=== PATIENT | female | born 1940 | race African-American/Black ===

== ENCOUNTER → 2016-10-30 | Outpatient (CLI) | payer MEDICARE, OTHER | LOC: OD 16:40 | PROVIDERS: ATTEND Family Medicine Geriatric Medicine | DX: R10.9 Unspecified abdominal pain (principal); R19.7 Diarrhea, unspecified; Z79.01 Long term (current) use of anticoagulants | CPT/HCPCS: 74022 ==

== ENCOUNTER 2016-11-18 14:14 | Inpatient (IN) | payer MEDICARE, OTHER ==
--- NOTE | 2016-11-18 14:27 | ER Document Report ---
ED Cardiac <LULA SEWELL - Last Filed: 11/18/16 14:27> - General Mode of Arrival: Medic Information source: Patient TRAVEL OUTSIDE OF THE [place] IN LAST 30 DAYS: No - HPI Patient complains to provider of: Shortness of breath Associated symptoms: Other - see notes above <MAXIMINO CORREA - Last Filed: 11/18/16 14:37> - General Chief Complaint: Palpitations Stated Complaint: HEART PROBLEMS Notes: 76 year old female with history atrial fibrillation, diabetes, CHF, ESRD, hypertension, and hyperlipidemia presents to the ED via EMS complaining of being in atrial fibrillation that started something this morning after waking up. Patient reports that the atrial fibrillation comes and goes and is not constant. Patient reports that she is sometimes short of breath and additionally complains of headaches and generalized fatigue. Patient is on Coumadin and is dialyzed Friday, , and Saturdays by Dr. Nelson. Patient reports not taking her medication this morning because her daughter who manages her medications was away this morning. (MAXIMINO CORREA) - Related Data Allergies/Adverse Reactions: Penicillins Allergy (Severe, Verified 06/03/16 15:11) Swelling of hands and/or feet vancomycin [Vancomycin] Adverse Reaction (Intermediate, Verified 06/03/16 15:11) Swelling of hands and/or feet hydrochlorothiazide [From Dyazide] Adverse Reaction (Verified 06/03/16 15:11) Swelling of hands and/or feet triamterene [From Dyazide] Adverse Reaction (Verified 06/03/16 15:11) Swelling of hands and/or feet Past Medical History - General Information source: Patient - Social History Smoking Status: Unknown if Ever Smoked Family History: DM, Hypertension - Past Medical History Cardiac Medical History: Reports: Hx Atrial Fibrillation, Hx Congestive Heart Failure, Hx Heart Attack - 2 mechanical valves, Hx Hypercholesterolemia, Hx Hypertension, Hx Heart Murmur - Aortic and mitral valve replacement. Pulmonary Medical History: Reports: Hx COPD Endocrine Medical History: Reports: Hx Diabetes Mellitus Type 2 Renal/ Medical History: Reports: Hx End Stage Renal Disease, Hx Hemodialysis GI Medical History: Reports: Hx Colonoscopy, Hx Endoscopy Musculoskeltal Medical History: Reports Hx Arthritis - GENERALIZED (JOVANNA KNEES, LEFT SHOULDER), Reports Hx Gout Psychiatric Medical History: Reports: Hx Depression Past Surgical History: Reports: Hx Cardiac Surgery - artificial valves x2, Hx Hysterectomy, Hx Orthopedic Surgery - Back surgery 2, Hx Valve Replacement - Mitral and aortic valve replacement, Other - Left forearm fistula, EGD, colonoscopy, right IJV PermCath - Immunizations Hx Diphtheria, Pertussis, Tetanus Vaccination: No Hx Pneumococcal Vaccination: 07/28/13 <MAXIMINO CORREA - Last Filed: 11/18/16 14:37> Review of Systems - Review of Systems Constitutional: No symptoms reported, Other - fatigue EENT: No symptoms reported Cardiovascular: See HPI, Palpitations Respiratory: See HPI, Short of breath Gastrointestinal: No symptoms reported Genitourinary: No symptoms reported Female Genitourinary: No symptoms reported Musculoskeletal: No symptoms reported Skin: No symptoms reported Hematologic/Lymphatic: No symptoms reported Neurological/Psychological: See HPI, Headaches -: Yes All other systems reviewed and negative <MAXIMINO CORREA - Last Filed: 11/18/16 14:37> Physical Exam - General General appearance: Alert In distress: None - HEENT Head: Normocephalic, Atraumatic Eyes: Normal Extraocular movements intact: Yes Pupils: PERRL - Respiratory Respiratory status: No respiratory distress Breath sounds: Other - Fine bibasilar crackles - Cardiovascular Rhythm: Irregularly irregular, Tachycardia Heart sounds: Normal auscultation Murmur: Yes - 2/6 systolic - Abdominal Inspection: Normal - Back Back: Normal - Extremities General upper extremity: Normal inspection, Normal ROM General lower extremity: Edema - Trace right lower extremity edema, Normal ROM. No: Normal inspection - Neurological Neuro grossly intact: Yes Cognition: Normal Orientation: AAOx4 [place] Coma Scale Eye Opening: Spontaneous [place] Coma Scale Verbal: Oriented [place] Coma Scale Motor: Obeys Commands [place] Coma Scale Total: 15 Speech: Normal - Psychological Associated symptoms: Normal affect, Normal mood - Skin Skin Temperature: Warm Skin Moisture: Dry Skin Color: Normal <MAXIMINO CORREA - Last Filed: 11/18/16 14:37> Course - EKG Interpretation by Sc Rate: Tachycardia - Heart rate 129, A. fib with rapid ventricular rate, LVH, right bundle branch block. Consistent with prior EKG Rhythm: A.Fib <LULA SEWELL - Last Filed: 11/18/16 14:27> Scribe Documentation - Scribe Written by Emilie:: Emilie Bruce, 11/18/2016 1435 acting as scribe for :: Shin <MAXIMINO CORREA - Last Filed: 11/18/16 14:37>
[2016-11-18] MEDS ORDERED: DILTIAZEM HCL INJ 25 MG/5 ML VIAL IV ONE (14:30)
[2016-11-18] MEDS ORDERED: DILTIAZEM HCL/D5W 125 ML IV PRN (14:32)
[2016-11-18 14:52] LABS: ABSOLUTE EOSINOPHILS # (AUTO) 0.1 10^3/uL (0.0-0.6); ABSOLUTE LYMPHOCYTES (AUTO) 0.7 10^3/uL (0.5-4.7); ABSOLUTE MONOCYTES (AUTO) 0.4 10^3/uL (0.1-1.4); ABSOLUTE NEUT (AUTO) 3.2 10^3/uL (1.7-8.2); BASOPHILS % (AUTO) 0.9 % (0-2); EOSINOPHILS % (AUTO) 2.2 % (0-6); HEMATOCRIT 30.6 % (36.0-47.0); HGB HCT DIFFERENCE -0.6; LYMPHOCYTES % (AUTO) 16.4 % (13-45); MEAN CORPUSCULAR HEMOGLOBIN 31.8 pg (27.0-33.4); MEAN CORPUSCULAR HGB CONC 32.8 g/dL (32.0-36.0); MEAN CORPUSCULAR VOLUME 97 fl (80-97); MONOCYTES % (AUTO) 8.6 % (3-13); RED BLOOD COUNT 3.16 10^6/uL (3.72-5.28); RED CELL DISTRIBUTION WIDTH 19.4 % (11.5-14.0); SEGMENTED NEUTROPHILS % (AUTO) 71.9 % (42-78); WHITE BLOOD COUNT 4.4 10^3/uL (4.0-10.5)
[2016-11-18 14:56] LABS: PROTHROMBIN TIME 22.3 SEC (11.4-15.4)
[2016-11-18 15:03] LABS: ANION GAP 13 (5-19); BLOOD UREA NITROGEN 35 mg/dL (7-20); CALCIUM 9.2 mg/dL (8.4-10.2); CARBON DIOXIDE 29 mmol/L (22-30); CHLORIDE 102 mmol/L (98-107); CREATININE RESULT 3.51 mg/dL (0.52-1.25); GLUCOSE 109 mg/dL (75-110); MAGNESIUM 1.9 mg/dL (1.6-2.3); POTASSIUM 4.4 mmol/L (3.6-5.0); SODIUM 143.5 mmol/L (137-145)
[2016-11-18 15:08] LABS: DIGOXIN < 0.40 ng/mL (0.8-2.0)
[2016-11-18] MEDS ORDERED: ACETAMINOPHEN 325 MG TABLET PO PRN (15:28)
[2016-11-18] MEDS ORDERED: GLUCAGON,HUMAN RECOMB 1 MG INJ IM PRN (15:55)
[2016-11-18] MEDS ORDERED: INSULIN LISPRO 100 UNIT/ML 3 ML VIAL SUBCUT PRN (15:55)
[2016-11-18] MEDS ORDERED: DEXTROSE 40% GEL 15 GM TUBE PO PRN ×2 (15:55)
[2016-11-18] MEDS ORDERED: DEXTROSE 50%-WATER 25 GM/50 ML DISP.SYRIN IV PRN ×2 (15:55)
[2016-11-18] MEDS ORDERED: DIPHENHYDRAMINE HCL 25 MG CAPSULE PO PRN (15:58)
[2016-11-18] MEDS ORDERED: ALBUTEROL SULFATE HFA (90 MCG/PUFF) 8 GM MDI (1 MDI/ER DISP) IH PRN (17:32)
[2016-11-18] MEDS ORDERED: LORAZEPAM 0.5 MG TABLET PO PRN (17:32)
[2016-11-18] MEDS ORDERED: ALBUTEROL SULFATE HFA (90 MCG/PUFF) 200 PUFF/8.5 GM MDI IH PRN (18:00)
--- NOTE | 2016-11-18 18:03 | PDOC H&P ---
History of Present Illness Admission Date/PCP: 11/18/16 15:28 Patient complains of: Palpitations History of Present Illness: TAMMY BUCKLEY is a 76 year old female with past medical history of atrial fibrillation which is paroxysmal, COPD, end-stage renal disease on hemodialysis , Mitral and aortic mechanical valve replacements, essential hypertension, diabetes mellitus type II, dyslipidemia and congestive heart failure. She presents to [facility]'s emergency room via EMS early this morning after waking up with palpitations and mild shortness of breath. She felt her pulse it was quite rapid she called 911. She has a known history of paroxysmal atrial fibrillation, on Coumadin and metoprolol. She was found to have a heart rate in the 140s upon presentation. She has hemodialysis on Tuesdays, and Saturdays. She is followed by Dr. Nelson, criminal lawyer. Past Medical History Cardiac Medical History: Reports: Atrial Fibrillation, Congestive Heart Failure , Myocardial Infarction - 2 mechanical valves, Hyperlipidema, Hypertension, Heart Murmur - Aortic and mitral valve replacement. Denies: Coronary Artery Disease Pulmonary Medical History: Reports: Chronic Obstructive Pulmonary Disease (COPD) Denies: Asthma, Bronchitis, Pneumonia Neurological Medical History: Denies: Seizures Endocrine Medical History: Reports: Diabetes Mellitus Type 2 Renal/ Medical History: Reports: End Stage Renal Disease Malignancy Medical History: Reports: None GI Medical History: Reports: None Musculoskeltal Medical History: Reports: Arthritis - GENERALIZED (JOVANNA KNEES, LEFT SHOULDER), Gout Skin Medical History: Reports: None Psychiatric Medical History: Reports: Depression, General Anxiety Disorder Traumatic Medical History: Reports: None Hematology: Reports: Anemia Infectious Medical History: Reports: None Past Surgical History Past Surgical History: Reports: Hysterectomy, Orthopedic Surgery - Back surgery 2, Valve Replacement - Mitral and aortic valve replacement, Other - Left forearm fistula, EGD, colonoscopy, right IJV PermCath Social History Information Source: Patient Lives with: Family Smoking Status: Former Smoker Number of Years Smokin Last Time Smoked: 30 yrs ago Frequency of Alcohol Use: None Hx Recreational Drug Use: No Drugs: None Hx Prescription Drug Abuse: No - Advance Directive Resuscitation Status: Full Code Surrogate healthcare decision maker:: Daughter is her MPOA Family History Family History: DM, Hypertension Parental Family History Reviewed: Yes Children Family History Reviewed: Yes Sibling(s) Family History Reviewed.: Yes Medication/Allergy Home Medications: Acetaminophen [Tylenol 325 mg Tablet] 650 mg PO Q12 11/18/16 Albuterol Sulfate [Ventolin Hfa] 1 puff IH Q4 PRN 11/18/16 Atorvastatin Calcium [Lipitor 80 mg Tablet] 80 mg PO QHS 11/18/16 B Complex & C No.20/Folic Acid [Nephrocaps Softgel] 1 mg PO DAILY 11/18/16 Budesonide/Formoterol Fumarate [Symbicort Hfa 160-4.5 Mcg Inhaler 6 gm] 2 puff IH Q12 11/18/16 Digoxin [Lanoxin 0.125 mg Tablet] 0.0625 mg PO Q2DAYS 11/18/16 Escitalopram Oxalate [Lexapro 10 mg Tablet] 20 mg PO QHS 11/18/16 Ferrous Sulfate [Feosol 325 mg Tablet] 325 mg PO DAILY 11/18/16 Folic Acid [Folvite 1 mg Tablet] 1 mg PO DAILY 11/18/16 Insulin Lispro [Humalog Insulin 100 Unit/1 ml 3 ml Vial] 0 unit SUBCUT .SLD SCALE 11/18/16 Isosorbide Dinitrate [Isordil Titradose 20 Mg Tablet] 20 mg PO Q8 11/18/16 Metoprolol Succinate [Toprol Xl 25 mg Tab.sr] 12.5 mg PO Q12 11/18/16 Pantoprazole Sodium [Protonix] 40 mg PO DAILY 11/18/16 Spironolactone [Aldactone 25 mg Tablet] 12.5 mg PO DAILY 11/18/16 Tiotropium [place] [Spiriva Handihaler 5 Cap/Kit (18 Mcg/Cap)] 1 cap IH DAILY Trazodone HCl [Desyrel 50 mg Tablet] 25 mg PO QHS 11/18/16 Warfarin Sodium [Coumadin 7.5 mg Tablet] 7.5 mg PO DAILY@1600 11/18/16 Allergies/Adverse Reactions: Penicillins Allergy (Severe, Verified 11/18/16 14:53) Swelling of hands and/or feet vancomycin [Vancomycin] Adverse Reaction (Intermediate, Verified 11/18/16 14:53) Swelling of hands and/or feet hydrochlorothiazide [From Dyazide] Adverse Reaction (Verified 11/18/16 14:53) Swelling of hands and/or feet triamterene [From Dyazide] Adverse Reaction (Verified 11/18/16 14:53) Swelling of hands and/or feet Review of Systems Constitutional: ABSENT: chills, fever(s), headache(s), weight gain, weight loss Eyes: ABSENT: visual disturbances Ears: ABSENT: hearing changes Cardiovascular: PRESENT: palpitations Respiratory: PRESENT: dyspnea Gastrointestinal: ABSENT: abdominal pain, constipation, diarrhea, hematemesis, hematochezia, nausea, vomiting Genitourinary: ABSENT: dysuria, hematuria Musculoskeletal: ABSENT: joint swelling Integumentary: ABSENT: rash, wounds Neurological: ABSENT: abnormal gait, abnormal speech, confusion, dizziness, focal weakness, syncope Psychiatric: ABSENT: anxiety, depression, homidical ideation, suicidal ideation Endocrine: ABSENT: cold intolerance, heat intolerance, polydipsia, polyuria Hematologic/Lymphatic: ABSENT: easy bleeding, easy bruising Physical Exam Vital Signs: Temp Pulse Resp BP Pulse Ox 98.5 F 121 H 28 H 95/45 L 92 11/18/16 14:14 11/18/16 14:14 11/18/16 17:16 11/18/16 17:16 11/18/16 17:16 General appearance: PRESENT: no acute distress, well-developed, well-nourished Head exam: PRESENT: atraumatic, normocephalic Eye exam: PRESENT: conjunctiva pink, EOMI, PERRLA. ABSENT: scleral icterus Ear exam: PRESENT: bleeding Mouth exam: PRESENT: moist, tongue midline Neck exam: ABSENT: carotid bruit, JVD, lymphadenopathy, thyromegaly Respiratory exam: PRESENT: clear to auscultation jovanna. ABSENT: rales, rhonchi, wheezes Cardiovascular exam: PRESENT: irregular rhythm, +S1, tachycardia Pulses: PRESENT: normal carotid pulses, normal radial pulses Vascular exam: PRESENT: normal capillary refill GI/Abdominal exam: PRESENT: normal bowel sounds, soft. ABSENT: distended, guarding, mass, organolmegaly, rebound, tenderness Rectal exam: PRESENT: deferred Extremities exam: PRESENT: full ROM. ABSENT: calf tenderness, clubbing, pedal edema Neurological exam: PRESENT: alert, awake, oriented to person, oriented to place , oriented to time, oriented to situation, CN II-XII grossly intact. ABSENT: motor sensory deficit Psychiatric exam: PRESENT: appropriate affect, normal mood. ABSENT: homicidal ideation, suicidal ideation Skin exam: PRESENT: dry, intact, warm. ABSENT: cyanosis, rash Results Impressions: Chest X-Ray 11/18/16 14:29 IMPRESSION: Cardiomegaly with mild pulmonary vascular congestion and a small right pleural effusion and with no florid CHF. Assessment & Plan - Diagnosis (1) Atrial fibrillation with RVR Is this a current diagnosis for this admission?: YesPlan: Patient was started on IV Cardizem by the emergency room provider which brought her rate down to 100. Digital was found to be 0.4. She was given 1 dose of digoxin 0.25 mg IV 1. We'll have Dr. Martines, cardiology, see the patient in consult. (2) ESRD (end stage renal disease) on dialysis Is this a current diagnosis for this admission?: YesPlan: We will ask Dr. Gomez, nephrology, to see patient and manage her dialysis while she is here. Avoid nephrotoxic medications and dosages. (3) COPD exacerbation Is this a current diagnosis for this admission?: YesPlan: Continue inhalers and when necessary nebulizer treatments (4) Congestive heart failure Qualifiers: Congestive heart failure chronicity: unspecified congestive heart failure chronicity (5) Diabetes mellitus, type 2 Qualifiers: Diabetes mellitus complication status: with kidney complications Diabetes mellitus complication detail: with chronic kidney disease Diabetes mellitus penitentiary insulin use: unspecified penitentiary insulin use status Chronic kidney disease stage: on chronic dialysis Qualified Code(s): E11.22 - Type 2 diabetes mellitus with diabetic chronic kidney disease; N18.6 - End stage renal disease Is this a current diagnosis for this admission?: YesPlan: Continue current insulin dosage and sliding scale coverage. (6) H/O prosthetic aortic valve replacement Is this a current diagnosis for this admission?: YesPlan: Continue warfarin with INR 2.5 to 3.5 for mitral valve (8) Congestive heart failure Qualifiers: Congestive heart failure type: unspecified congestive heart failure type Congestive heart failure chronicity: chronic Qualified Code(s): I50.9 - Heart failure, unspecified Is this a current diagnosis for this admission?: YesPlan: Continue current medications. - Time Time Spent: 50 to 70 Minutes Critical Time spent with patient: 25-34 minutes Medications reviewed and adjusted accordingly: Yes
[2016-11-18] MEDS ORDERED: DIGOXIN INJ 0.5 MG/2 ML AMPULE IV ONE (19:00)
[2016-11-18 19:28] LABS: PROTHROMBIN TIME 21.7 SEC (11.4-15.4)
[2016-11-18] MEDS: ISOSORBIDE DINITRATE 20 MG TABLET PO SCH (21:35)
[2016-11-18] MEDS: METOPROLOL SUCCINATE 25 MG TAB.SR.24H PO SCH (21:36)
[2016-11-18] MEDS: FAMOTIDINE 20 MG TABLET PO SCH (21:36)
[2016-11-18] MEDS: HEPARIN SOD (PORCINE) 5,000 UNIT/ML 1 ML SYRINGE SUBCUT SCH (21:36)
[2016-11-18] MEDS: BUDESONIDE/FORMOTEROL 160-4.5 MCG 60 PUFF/6 GM MDI IH SCH (21:39)
[2016-11-18] MEDS: ACETAMINOPHEN 325 MG TABLET PO SCH (21:39)
--- NOTE | 2016-11-18 21:39 | EKG REPORT ---
SEVERITY:- ABNORMAL ECG - ATRIAL FIBRILLATION, V-RATE 83-156 RIGHT BUNDLE BRANCH BLOCK LEFT VENTRICULAR HYPERTROPHY : Confirmed by: Anusha Martines 18-Nov-2016 21:39:24
[2016-11-18] MEDS ORDERED: TRAZODONE HCL 50 MG TABLET PO SCH (22:00)
[2016-11-18] MEDS ORDERED: ATORVASTATIN CALCIUM 80 MG TABLET PO SCH (22:00)
[2016-11-18] MEDS ORDERED: ESCITALOPRAM OXALATE 10 MG TABLET PO SCH (22:00)
[2016-11-18] MEDS ORDERED: WARFARIN SODIUM 7.5 MG TABLET PO SCH (22:00)
[2016-11-19 04:56] LABS: HEMATOCRIT 27.8 % (36.0-47.0); HEMOGLOBIN 9.3 g/dL (12.0-15.5); HGB HCT DIFFERENCE 0.1; MEAN CORPUSCULAR HEMOGLOBIN 32.4 pg (27.0-33.4); MEAN CORPUSCULAR HGB CONC 33.6 g/dL (32.0-36.0); MEAN CORPUSCULAR VOLUME 96 fl (80-97); RED BLOOD COUNT 2.89 10^6/uL (3.72-5.28); RED CELL DISTRIBUTION WIDTH 19.4 % (11.5-14.0); WHITE BLOOD COUNT 3.8 10^3/uL (4.0-10.5)
[2016-11-19] MEDS: HEPARIN SOD (PORCINE) 5,000 UNIT/ML 1 ML SYRINGE SUBCUT SCH (05:11)
[2016-11-19] MEDS: ISOSORBIDE DINITRATE 20 MG TABLET PO SCH (05:11)
[2016-11-19 05:22] LABS: ALANINE AMINOTRANSFERASE 28 U/L (9-52); ALBUMIN 3.5 g/dL (3.5-5.0); ALKALINE PHOSPHATASE 152 U/L (38-126); ANION GAP 13 (5-19); ASPARTATE AMINO TRANSFERASE 27 U/L (14-36); BILIRUBIN,DIRECT 0.5 mg/dL (0.0-0.4); BILIRUBIN,TOTAL 0.7 mg/dL (0.2-1.3); BLOOD UREA NITROGEN 38 mg/dL (7-20); CARBON DIOXIDE 27 mmol/L (22-30); CHLORIDE 103 mmol/L (98-107); CREATININE RESULT 3.58 mg/dL (0.52-1.25); GLUCOSE 86 mg/dL (75-110); POTASSIUM 4.1 mmol/L (3.6-5.0); SODIUM 142.6 mmol/L (137-145); TOTAL PROTEIN 6.8 g/dL (6.3-8.2)
[2016-11-19] MEDS ORDERED: TIOTROPIUM BROMIDE DPI 5 CAP/KIT (18 MCG/CAP) IH SCH (10:00)
[2016-11-19] MEDS ORDERED: FOLIC ACID/VITAMIN B COMP W-C CAPSULE PO SCH (10:00)
[2016-11-19] MEDS ORDERED: SPIRONOLACTONE 25 MG TABLET PO SCH (10:00)
[2016-11-19] MEDS ORDERED: FERROUS SULFATE 325 MG TABLET PO SCH (10:00)
[2016-11-19] MEDS ORDERED: LANSOPRAZOLE 30 MG TAB.RAP.DR PO SCH (10:00)
[2016-11-19] MEDS: ACETAMINOPHEN 325 MG TABLET PO SCH (10:09)
[2016-11-19] MEDS: FAMOTIDINE 20 MG TABLET PO SCH (10:10)
[2016-11-19] MEDS: METOPROLOL SUCCINATE 25 MG TAB.SR.24H PO SCH (10:10)
[2016-11-19] MEDS: BUDESONIDE/FORMOTEROL 160-4.5 MCG 60 PUFF/6 GM MDI IH SCH (10:12)
[2016-11-19 10:26] VITALS: BP 106/92
--- NOTE | 2016-11-19 11:21 | EKG REPORT ---
SEVERITY:- ABNORMAL ECG - ATRIAL FIBRILLATION, V-RATE 69-142 RIGHT BUNDLE BRANCH BLOCK LEFT VENTRICULAR HYPERTROPHY : Confirmed by: Anusha Martines 19-Nov-2016 11:20:30
--- NOTE | 2016-11-19 11:52 | PDOC DISCHARGE SUMMARY ---
General - Admit/Disc Date/PCP Admission Date/Primary Care Provider: 11/18/16 15:28 Discharge Date: 11/19/16 - Discharge Diagnosis (1) Atrial fibrillation with RVR Is this a current diagnosis for this admission?: YesSummary: Resolved, now rate controlled on warfarin (2) ESRD (end stage renal disease) on dialysis Is this a current diagnosis for this admission?: YesSummary: Patient is on dialysis, Tues, Th, and Sat. 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 Is this a current diagnosis for this admission?: YesSummary: Warfarin (8) Congestive heart failure Is this a current diagnosis for this admission?: YesSummary: Continue current medications - Additional Information Resuscitation Status: Full Code Discharge Activity: Activity As Tolerated, Balance Activity w/Rest Home Medications: Acetaminophen [Tylenol 325 mg Tablet] 650 mg PO Q12 11/18/16 Albuterol Sulfate [Ventolin Hfa] 1 puff IH Q4 PRN 11/18/16 Atorvastatin Calcium [Lipitor 80 mg Tablet] 80 mg PO QHS 11/18/16 B Complex & C No.20/Folic Acid [Nephrocaps Softgel] 1 mg PO DAILY 11/18/16 Budesonide/Formoterol Fumarate [Symbicort HFA 160-4.5 mcg Inhaler 6 gm] 2 puff IH Q12 11/18/16 Digoxin [Lanoxin 0.125 mg Tablet] 0.0625 mg PO Q2DAYS 11/18/16 Escitalopram Oxalate [Lexapro 10 mg Tablet] 20 mg PO QHS 11/18/16 Ferrous Sulfate [Feosol 325 mg Tablet] 325 mg PO DAILY 11/18/16 Folic Acid [Folvite 1 mg Tablet] 1 mg PO DAILY 11/18/16 Insulin Lispro [Humalog Insulin (Lispro) 100 unit/mL] 0 unit SUBCUT .SLD SCALE 11/18/16 Isosorbide Dinitrate [Isordil Titradose 20 mg Tablet] 20 mg PO Q8 11/18/16 Metoprolol Succinate [Toprol Xl 25 mg Tab.sr] 12.5 mg PO Q12 11/18/16 Pantoprazole Sodium [Protonix] 40 mg PO DAILY 11/18/16 Spironolactone [Aldactone 25 mg Tablet] 12.5 mg PO DAILY 11/18/16 Tiotropium [place] [Spiriva Handihaler 5 Cap/Kit (18 Mcg/Cap)] 1 cap IH DAILY Trazodone HCl [Desyrel 50 mg Tablet] 25 mg PO QHS 11/18/16 Warfarin Sodium [Coumadin 7.5 mg Tablet] 7.5 mg PO DAILY@1600 11/18/16 History of Present Illness Patient complains of: Palpitations and shortness of breath History of Present Illness: TAMMY BUCKLEY is a 76 year old female with past medical history of atrial fibrillation which is paroxysmal, COPD, end-stage renal disease on hemodialysis , Mitral and aortic mechanical valve replacements, essential hypertension, diabetes mellitus type II, dyslipidemia and congestive heart failure. She presents to [facility]'s emergency room via EMS early this morning after waking up with palpitations and mild shortness of breath. She felt her pulse it was quite rapid she called 911. She has a known history of paroxysmal atrial fibrillation, on Coumadin and metoprolol. She was found to have a heart rate in the 140s upon presentation. She has hemodialysis on Tuesdays, and Saturdays. She is followed by Dr. Nelson, photoresist printer. Hospital Course Hospital Course: Patient was admitted to [facility] on telemetry. She became rate controlled on the IV Cardizem. Later in the evening she had a dip in her blood pressure down to the 80s systolic, therefore the Cardizem was discontinued. She continued to be rate controlled overnight. She denies a shortness of breath or dyspnea. Dr. Nelson, her photoresist printer, saw her in consult. She will go to dialysis at [facility] today. Physical Exam Vital Signs: Temp Pulse Resp BP Pulse Ox 98.0 F 19 L 19 106/92 H 96 11/19/16 10:16 11/19/16 10:16 11/19/16 10:16 11/19/16 10:16 11/19/16 10:16 Intake & Output 11/18/16 11/19/16 11/20/16 06:59 06:59 06:59 Intake Total 50 Output Total 0 Balance 50 Weight 74.7 kg General appearance: PRESENT: no acute distress, well-developed, well-nourished Head exam: PRESENT: atraumatic, normocephalic Eye exam: PRESENT: conjunctiva pink, EOMI, PERRLA. ABSENT: scleral icterus Ear exam: PRESENT: normal external ear exam Mouth exam: PRESENT: moist, tongue midline Neck exam: ABSENT: carotid bruit, JVD, lymphadenopathy, thyromegaly Respiratory exam: PRESENT: clear to auscultation kee. ABSENT: rales, rhonchi, wheezes Cardiovascular exam: PRESENT: RRR. ABSENT: diastolic murmur, rubs, systolic murmur Pulses: PRESENT: normal dorsalis pedis pul Vascular exam: PRESENT: normal capillary refill GI/Abdominal exam: PRESENT: normal bowel sounds, soft. ABSENT: distended, guarding, mass, organolmegaly, rebound, tenderness Rectal exam: PRESENT: deferred Extremities exam: PRESENT: full ROM. ABSENT: calf tenderness, clubbing, pedal edema Musculoskeletal exam: PRESENT: ambulatory Neurological exam: PRESENT: alert, awake, oriented to person, oriented to place , oriented to time, oriented to situation, CN II-XII grossly intact. ABSENT: motor sensory deficit Psychiatric exam: PRESENT: appropriate affect, normal mood. ABSENT: homicidal ideation, suicidal ideation Skin exam: PRESENT: dry, intact, warm. ABSENT: cyanosis, rash Results Laboratory Results: 11/19/16 04:22 11/19/16 04:22 11/19/16 11/19/16 04:22 04:22 WBC 3.8 L RBC 2.89 L Hgb 9.3 L Hct 27.8 L MCV 96 MCH 32.4 MCHC 33.6 RDW 19.4 H Plt Count 164 Sodium 142.6 Potassium 4.1 Chloride 103 Carbon Dioxide 27 Anion Gap 13 BUN 38 H Creatinine 3.58 H Est GFR ( Amer) 15 L Est GFR (Non-Af Amer) 12 L Glucose 86 Calcium 9.0 Total Bilirubin 0.7 AST 27 ALT 28 Alkaline Phosphatase 152 H Total Protein 6.8 Albumin 3.5 Impressions: Chest X-Ray 11/18/16 14:29 IMPRESSION: Cardiomegaly with mild pulmonary vascular congestion and a small right pleural effusion and with no florid CHF. Qualifiers PATEINT BEING DISCHARGED WITH ANY OF THE FOLLOWING DIAGNOSIS?: No Plan Discharge Plan: Home with family with resumption of home health services Time Spent: Less than 30 Minutes
[2016-11-19] MEDS ORDERED: (PENDING PHARMACY ID) (Warfarin Sodium 7.5 MG) PO SCH (16:00)
--- NOTE | 2016-11-19 18:32 | PDOC CONSULTATION ---
Consultation Consult Date: 11/18/16 Attending physician:: ALIREZA GOMEZ Consult reason:: Palpitations and Dyspnea History of Present Illness Admission Date/PCP: 11/18/16 15:28 Patient complains of: Shortness of breath and palpitations History of Present Illness: TAMMY BUCKLEY is a 76 year old female with past medical history of atrial fibrillation which is paroxysmal, COPD, end-stage renal disease on hemodialysis , Mitral and aortic mechanical valve replacements, essential hypertension, diabetes mellitus type II, dyslipidemia and congestive heart failure. She presents to [facility] emergency room via EMS early this morning after waking up with palpitations and mild shortness of breath. She felt her pulse it was quite rapid she called 911. Patient however told me that it was the home health nurse who panicked and called the EMS. Patient has significant cardiac history and therefore was admitted. Patient does have history of mechanical heart valves and also history of atrial fibrillation which I believe is chronic. She has a known history of atrial fibrillation, on Coumadin and metoprolol. She was found to have a heart rate in the 140s upon presentation. She has hemodialysis on Tuesdays, and Saturdays. She is followed by Dr. Nelson, activity manager. I was asked to evaluate her because of atrial fibrillation and rather complicated cardiac history. Past Medical History Cardiac Medical History: Reports: Atrial Fibrillation, Congestive Heart Failure , Myocardial Infarction - 2 mechanical valves, Hyperlipidema, Hypertension, Heart Murmur - Aortic and mitral valve replacement. Denies: Coronary Artery Disease Pulmonary Medical History: Reports: Chronic Obstructive Pulmonary Disease (COPD) Denies: Asthma, Bronchitis, Pneumonia Neurological Medical History: Denies: Seizures Endocrine Medical History: Reports: Diabetes Mellitus Type 2 Renal/ Medical History: Reports: End Stage Renal Disease Malignancy Medical History: Reports: None GI Medical History: Reports: None Musculoskeltal Medical History: Reports: Arthritis - GENERALIZED (JOVANNA KNEES, LEFT SHOULDER), Gout Skin Medical History: Reports: None Psychiatric Medical History: Reports: Depression, General Anxiety Disorder Traumatic Medical History: Reports: None Hematology: Reports: Anemia Infectious Medical History: Reports: None Past Surgical History Past Surgical History: Reports: Hysterectomy, Orthopedic Surgery - Back surgery 2, Valve Replacement - Mitral and aortic valve replacement, Other - Left forearm fistula, EGD, colonoscopy, right IJV PermCath Social History Information Source: Patient Lives with: Family Smoking Status: Former Smoker Number of Years Smokin Last Time Smoked: 30 yrs ago Frequency of Alcohol Use: None Hx Recreational Drug Use: No Drugs: None Hx Prescription Drug Abuse: No - Advance Directive Resuscitation Status: Full Code Surrogate healthcare decision maker:: Patient's daughter is the surrogate decision maker Family History Family History: Reviewed & Not Pertinent, COPD, DM, Hypertension Parental Family History Reviewed: Yes Children Family History Reviewed: Yes Sibling(s) Family History Reviewed.: Yes Medication/Allergy Home Medications: Acetaminophen [Tylenol 325 mg Tablet] 650 mg PO Q12 11/18/16 Albuterol Sulfate [Ventolin Hfa] 1 puff IH Q4 PRN 11/18/16 Atorvastatin Calcium [Lipitor 80 mg Tablet] 80 mg PO QHS 11/18/16 B Complex & C No.20/Folic Acid [Nephrocaps Softgel] 1 mg PO DAILY 11/18/16 Budesonide/Formoterol Fumarate [Symbicort HFA 160-4.5 mcg Inhaler 6 gm] 2 puff IH Q12 11/18/16 Digoxin [Lanoxin 0.125 mg Tablet] 0.0625 mg PO Q2DAYS 11/18/16 Escitalopram Oxalate [Lexapro 10 mg Tablet] 20 mg PO QHS 11/18/16 Ferrous Sulfate [Feosol 325 mg Tablet] 325 mg PO DAILY 11/18/16 Folic Acid [Folvite 1 mg Tablet] 1 mg PO DAILY 11/18/16 Insulin Lispro [Humalog Insulin (Lispro) 100 unit/mL] 0 unit SUBCUT .SLD SCALE 11/18/16 Isosorbide Dinitrate [Isordil Titradose 20 mg Tablet] 20 mg PO Q8 11/18/16 Metoprolol Succinate [Toprol Xl 25 mg Tab.sr] 12.5 mg PO Q12 11/18/16 Pantoprazole Sodium [Protonix] 40 mg PO DAILY 11/18/16 Spironolactone [Aldactone 25 mg Tablet] 12.5 mg PO DAILY 11/18/16 Tiotropium [place] [Spiriva Handihaler 5 Cap/Kit (18 Mcg/Cap)] 1 cap IH DAILY Trazodone HCl [Desyrel 50 mg Tablet] 25 mg PO QHS 11/18/16 Warfarin Sodium [Coumadin 7.5 mg Tablet] 7.5 mg PO DAILY@1600 11/18/16 Allergies/Adverse Reactions: Penicillins Allergy (Severe, Verified 11/18/16 14:53) Swelling of hands and/or feet vancomycin [Vancomycin] Adverse Reaction (Intermediate, Verified 11/18/16 14:53) Swelling of hands and/or feet hydrochlorothiazide [From Dyazide] Adverse Reaction (Verified 11/18/16 14:53) Swelling of hands and/or feet triamterene [From Dyazide] Adverse Reaction (Verified 11/18/16 14:53) Swelling of hands and/or feet Review of Systems Review of Systems: Please see history of present illness and past medical history as wall. Constitutional: No fever or chills reported. Patient has noted some generalized weakness and fatigue. Head : No recent chronic headaches, recent head injury. Eyes: No recent eye pain, diplopia, redness, discharge, acute visual changes. Ears: No recent chronic ear pain, acute hearing loss, ear discharge. Oral cavity: No recent ulcerations, bleeding, oral cavity discomfort. Neck: No recent acute neck pain reported. Hematologic: No recent easy bruising or bleeding or hematologic malignancy reported. Lymphatic: No recent lymphatic malignancy, chronic lymphadenopathy reported yet Cardiovascular system review: See history of present illness. Intermittent palpitations noted no recent syncope or near syncope. Respiratory system review: No recent chronic cough, hemoptysis, blood clots in the lungs reported. Mild Shortness of breath on exertion Gastrointestinal system review: Negative for any recent acute or chronic abdominal pain, hematemesis, melena, recent change in bowel habits. Genitourinary system review: No recent acute or chronic hematuria, flank pain, UTI etc. reported. Skin system review: Negative for any recent abnormal bruising, no rash, no pruritus reported. Neurologic: No prior history of strokes, mini strokes, seizure disorder. Psychologic: No history of major psychosis or major depression reported. Musculoskeletal: Minor aches and pains reported. No acute joint swelling reported. Endocrine: No recent polyuria, polydipsia, recent heat or cold intolerance. Physical Exam Vital Signs: Temp Pulse Resp BP Pulse Ox 98.5 F 121 H 18 141/46 H 94 11/18/16 14:14 11/18/16 14:14 11/18/16 19:15 11/18/16 19:34 11/18/16 19:34 Exam: GENERAL: well-nourished and in no acute distress. Alert and oriented x3 HEAD: Atraumatic, normocephalic. EYES: Pupils equal round and reactive to light, extraocular movements intact, sclera anicteric, conjunctiva are normal. ENT: TMs normal, nares patent, oropharynx clear without exudates. Moist mucous membranes. No oral ulcerations or bleeding gums noted NECK: supple without lymphadenopathy. Trachea is central. No cervical or axillary lymphadenopathy noted. Carotids are 2+, JVD WNL LUNGS: Respiration seems nonlabored, no significant accessory muscle action noted. Breath sounds clear to auscultation bilaterally and equal noted. No wheezes rales or rhonchi noted. Mild right basal dullness noted. CHEST: Palpation of the chest wall shows no significant chest wall tenderness. No other significant abnormalities noted. 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 Prosthetic valve sounds are noted to be crisp. ABDOMEN: Soft, no significant tenderness appreciated, normoactive bowel sounds. No guarding, no rebound. No rigidity noted . No masses appreciated. EXTREMITIES: Pedal pulses are 1-2+, no calf tenderness noted. No clubbing or cyanosis.trace to 1+ pedal edema noted NEUROLOGICAL: Focused neurological exam showed no significant neurologic deficit. Normal speech, no focal weakness appreciated. PSYCH: Normal mood, normal affect. Judgment and insight within normal limits. SKIN: No significant ecchymosis, rash, ulcerations or signs of pruritus noted. MUSCULOSKELETAL EXAM: No significant joint swelling noted. Results EKG Comments: Atrial fibrillation with rapid ventricular response, right bundle branch block pattern, left axis deviation, secondary ST-T wave changes are noted. Impressions: Chest X-Ray 11/18/16 14:29 IMPRESSION: Cardiomegaly with mild pulmonary vascular congestion and a small right pleural effusion and with no florid CHF. Assessment & Plan - Diagnosis (1) Atrial fibrillation with RVR Is this a current diagnosis for this admission?: Yes (2) Chronic kidney disease (CKD) Qualifiers: Chronic kidney disease stage: stage 5 Qualified Code(s): N18.5 - Chronic kidney disease, stage 5 (3) Congestive heart failure Qualifiers: Congestive heart failure type: unspecified congestive heart failure type Congestive heart failure chronicity: chronic Qualified Code(s): I50.9 - Heart failure, unspecified Is this a current diagnosis for this admission?: Yes (4) Diabetes mellitus, type 2 Qualifiers: Diabetes mellitus complication status: with kidney complications Diabetes mellitus complication detail: with chronic kidney disease Diabetes mellitus care home insulin use: unspecified care home insulin use status Chronic kidney disease stage: on chronic dialysis Qualified Code(s): E11.22 - Type 2 diabetes mellitus with diabetic chronic kidney disease; N18.1 - Chronic kidney disease, stage 1; Z79.4 - skilled nursing (current) use of insulin Is this a current diagnosis for this admission?: Yes (5) H/O prosthetic aortic valve replacement Is this a current diagnosis for this admission?: Yes (6) 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 Patient has frequent spells of these. Exact etiology not clear , possible noncompliance with medication, possible anxiety panic disorder. Patient would be a good candidate for ablation and permanent pacemaker placement and should be considered. At this point agree with Cardizem and metoprolol for rate control. May consider adding SSRI agent to the regimen. Chronic kidney disease: This is advanced. Patient does well with dialysis. Prior to that she was having recurrent admission with CHF. Recommend fluid removal on dialysis. Congestive heart failure: Seems fairly compensated but there is evidence to suggest slight right pleural effusion and mild pulmonary congestion. Recommend fluid removal on dialysis. Diabetes: Recommend good control of blood sugar. However should avoid any hypoglycemia. Patient being expertly managed by primary care [place] Mechanical prosthetic valve in aortic and mitral position: Patient on chronic Coumadin therapy. Clinically on auscultation this seemed to be functioning normally. Will continue to follow patient. - Time Time Spent: 30 to 50 Minutes - CODE STATUS was discussed, patient remains full code. Surrogate decision-maker unchanged. Multiple medical problems were addressed.More than 50% of the time spent coordinating care, discussing management plans with involved caregivers. Management plans discussed with involved personnels. Medical decision making was of moderate to high complexity , patient's has multiple severe comorbidities. Medications reviewed and adjusted accordingly: Yes - medications were reviewed. No medication changes performed.
--- NOTE | 2016-11-19 18:44 | PDOC PROGRESS REPORT ---
Subjective Progress Note for:: 11/19/16 Subjective:: Patient seems to be doing better with significant improvement. Pt is denying any chest arm or neck discomfort. Patient denying any PND, orthopnea. Patient denied any sustained palpitations, dizziness, syncope, near syncope. Patient denying any fever chills. Patient denying any other significant discomfort. Patient is maintaining atrial fibrillation. Twelve-lead EKG reviewed and recent changed. Review of systems: Rest review of systems negative. Medications: Medications have been reviewed. Physical Exam Vital Signs: Temp Pulse Resp BP Pulse Ox 98.0 F 19 L 19 106/92 H 96 11/19/16 10:16 11/19/16 10:16 11/19/16 10:16 11/19/16 10:16 11/19/16 10:16 Intake & Output 11/18/16 11/19/16 11/20/16 06:59 06:59 06:59 Intake Total 50 Output Total 0 Balance 50 Weight 74.7 kg Exam: GENERAL: well-nourished and in no acute distress. Alert and oriented x3 HEAD: Atraumatic, normocephalic. EYES: Pupils equal round and reactive to light, extraocular movements intact, sclera anicteric, conjunctiva are normal. ENT: TMs normal, nares patent, oropharynx clear without exudates. Moist mucous membranes. No oral ulcerations or bleeding gums noted NECK: supple without lymphadenopathy. Trachea is central. No cervical or axillary lymphadenopathy noted. Carotids are 2+, JVD WNL LUNGS: Respiration seems nonlabored, no significant accessory muscle action noted. Breath sounds clear to auscultation bilaterally and equal noted. No wheezes rales or rhonchi noted. No significant dullness noted on percussion. CHEST: Palpation of the chest wall shows no significant chest wall tenderness. No other significant abnormalities noted. 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 Prosthetic valve sounds are noted to be crisp. ABDOMEN: Soft, no significant tenderness appreciated, normoactive bowel sounds. No guarding, no rebound. No rigidity noted . No masses appreciated. EXTREMITIES: Pedal pulses are 1-2+, no calf tenderness noted. No clubbing or cyanosis.trace to 1+ pedal edema noted NEUROLOGICAL: Focused neurological exam showed no significant neurologic deficit. Normal speech, no focal weakness appreciated. PSYCH: Normal mood, normal affect. Judgment and insight within normal limits. SKIN: No significant ecchymosis, rash, ulcerations or signs of pruritus noted. MUSCULOSKELETAL EXAM: No significant joint swelling noted. Results Laboratory Results: 11/19/16 04:22 11/19/16 04:22 11/19/16 11/19/16 04:22 04:22 WBC 3.8 L RBC 2.89 L Hgb 9.3 L Hct 27.8 L MCV 96 MCH 32.4 MCHC 33.6 RDW 19.4 H Plt Count 164 Sodium 142.6 Potassium 4.1 Chloride 103 Carbon Dioxide 27 Anion Gap 13 BUN 38 H Creatinine 3.58 H Est GFR ( Amer) 15 L Est GFR (Non-Af Amer) 12 L Glucose 86 Calcium 9.0 Total Bilirubin 0.7 AST 27 ALT 28 Alkaline Phosphatase 152 H Total Protein 6.8 Albumin 3.5 EKG Comments: Twelve-lead EKG shows better control of heart rate. Otherwise EKG is unchanged with atrial fibrillation Impressions: Chest X-Ray 11/18/16 14:29 IMPRESSION: Cardiomegaly with mild pulmonary vascular congestion and a small right pleural effusion and with no florid CHF. Assessment & Plan - Diagnosis (1) Atrial fibrillation with RVR Is this a current diagnosis for this admission?: Yes (2) Chronic kidney disease (CKD) Qualifiers: Chronic kidney disease stage: stage 5 Qualified Code(s): N18.5 - Chronic kidney disease, stage 5 (3) Congestive heart failure Qualifiers: Congestive heart failure type: unspecified congestive heart failure type Congestive heart failure chronicity: chronic Qualified Code(s): I50.9 - Heart failure, unspecified Is this a current diagnosis for this admission?: Yes (4) Diabetes mellitus, type 2 Qualifiers: Diabetes mellitus complication status: with kidney complications Diabetes mellitus complication detail: with chronic kidney disease Diabetes mellitus continuous churn buttermaker insulin use: unspecified continuous churn buttermaker insulin use status Chronic kidney disease stage: on chronic dialysis Qualified Code(s): E11.22 - Type 2 diabetes mellitus with diabetic chronic kidney disease; N18.1 - Chronic kidney disease, stage 1; Z79.4 - jail (current) use of insulin Is this a current diagnosis for this admission?: Yes (5) H/O prosthetic aortic valve replacement Is this a current diagnosis for this admission?: Yes (6) 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 Patient has frequent spells of these. Exact etiology not clear , possible noncompliance with medication, possible anxiety panic disorder. Patient would be a good candidate for ablation and permanent pacemaker placement and should be considered. At this point agree with Cardizem and metoprolol for rate control. Patient's medical regimen reviewed. Twelve-lead EKG reviewed today shows adequate control of heart rate. Patient on chronic anticoagulation with Coumadin. Chronic kidney disease: This is advanced. Patient does well with dialysis. I' m told that patient being discharged to dialysis center for dialysis and subsequently home from there. Feel that patient stable from cardiac standpoint. Recommend fluid removal on dialysis. Congestive heart failure: Seems fairly compensated but there is evidence to suggest slight right pleural effusion and mild pulmonary congestion. Recommend fluid removal on dialysis. Diabetes: Recommend good control of blood sugar. However should avoid any hypoglycemia. Patient being expertly managed by primary care M.D. Mechanical prosthetic valve in aortic and mitral position: Patient on chronic Coumadin therapy. Clinically on auscultation this seemed to be functioning normally. Anticoagulation reviewed with the patient. Patient currently inadequately anticoagulated. Patient understands this. Have asked patient to follow-up with her primary care M.D. of primary care flaker operator for maintaining adequate anticoagulation. Patient is likely to be discharged therefore will sign off. - Time Time with patient: 15-25 minutes - CODE STATUS was discussed, patient remains full code. Surrogate decision-maker patient's daughter. Multiple medical problems were addressed.More than 50% of the time spent coordinating care, discussing management plans with involved caregivers. Management plans discussed with involved personnels. Medical decision making was of moderate to high complexity, patient's has multiple severe comorbidities.
[2016-11-20] MEDS ORDERED: DIGOXIN 0.125 MG TABLET PO SCH (10:00)
== END 2016-11-19 11:15 | disposition home health service (06) | DRG 308 ==
LOC: ER 14:14 → EH 15:28 → 3N 20:36
DX: I48.0 Paroxysmal atrial fibrillation (principal); N18.6 End stage renal disease; J44.1 Chronic obstructive pulmonary disease with (acute) exacerbation; I13.2 Hypertensive heart and chronic kidney disease with heart failure and with stage 5 chronic kidney disease, or end stage renal disease; E11.22 Type 2 diabetes mellitus with diabetic chronic kidney disease; I50.9 Heart failure, unspecified; E78.5 Hyperlipidemia, unspecified; F32.9 Major depressive disorder, single episode, unspecified; M10.9 Gout, unspecified; F41.1 Generalized anxiety disorder; D63.1 Anemia in chronic kidney disease; I45.10 Unspecified right bundle-branch block; E78.00 Pure hypercholesterolemia, unspecified; I25.2 Old myocardial infarction; Z99.2 Dependence on renal dialysis; Z79.899 Other long term (current) drug therapy; Z79.4 Long term (current) use of insulin; Z79.01 Long term (current) use of anticoagulants; Z95.2 Presence of prosthetic heart valve; Z88.8 Allergy status to other drugs, medicaments and biological substances; Z90.710 Acquired absence of both cervix and uterus; Z88.3 Allergy status to other anti-infective agents; Z88.0 Allergy status to penicillin; Z87.891 Personal history of nicotine dependence; Z83.6 Family history of other diseases of the respiratory system; Z83.3 Family history of diabetes mellitus; Z82.49 Family history of ischemic heart disease and other diseases of the circulatory system
CPT/HCPCS: 36415; 71010; 80048; 80053; 80162; 82962; 83735; 84484; 85025; 85027; 85610; 93005; 93010; 96374; 99285; J1160; J1644; J3490

== ENCOUNTER 2016-11-26 16:40 | Inpatient (IN) | payer MEDICARE, OTHER ==
--- NOTE | 2016-11-26 16:50 | ER Document Report ---
ED Headache - General Stated Complaint: HEADACHE Mode of Arrival: Medic Information source: Patient, Emergency Med Personnel, Office - DIALYSIS CLINIC TRAVEL OUTSIDE OF THE [place] IN LAST 30 DAYS: No - HPI Patient complains to provider of: Headache Patient reports: No: Hx chronic headaches Onset: This morning - SHORTLY AFTER BEGINNING HEMODIALYSIS Onset was: Gradual Timing: Still present Quality of pain: Dull Severity: Mild Context: Other - SHORTLY AFTER DIALYSIS BEGAN Associated symptoms: Other - DYSPNEIC, TACHYCARDIC Notes: Patient apparently presented to the dialysis clinic for routine treatment today , was found to be tachycardic but had no particular complaints, so the dialysis session was begun and completed a usual. At the end of dialysis she was still tachycardic and complained of headache as well as shortness of breath, so EMS was summoned to evaluate patient and transport to the emergency department. - Related Data Allergies/Adverse Reactions: Penicillins Allergy (Severe, Verified 11/18/16 14:53) Swelling of hands and/or feet vancomycin [Vancomycin] Adverse Reaction (Intermediate, Verified 11/18/16 14:53) Swelling of hands and/or feet hydrochlorothiazide [From Dyazide] Adverse Reaction (Verified 11/18/16 14:53) Swelling of hands and/or feet triamterene [From Dyazide] Adverse Reaction (Verified 11/18/16 14:53) Swelling of hands and/or feet Past Medical History - General Information source: Patient, [facility] Records - Social History Smoking Status: Never Smoker Cigarette use (# per day): No Chew tobacco use (# tins/day): No Frequency of alcohol use: None Drug Abuse: None Lives with: Family Family History: Reviewed & Not Pertinent, COPD, DM, Hypertension - Past Medical History Cardiac Medical History: Reports: Hx Atrial Fibrillation, Hx Congestive Heart Failure, Hx Heart Attack - 2 mechanical valves, Hx Hypercholesterolemia, Hx Hypertension, Hx Heart Murmur - Aortic and mitral valve replacement. Denies: Hx Coronary Artery Disease Pulmonary Medical History: Reports: Hx COPD Denies: Hx Asthma, Hx Bronchitis, Hx Pneumonia Neurological Medical History: Denies: Hx Cerebrovascular Accident, Hx Seizures Endocrine Medical History: Reports: Hx Diabetes Mellitus Type 2 Renal/ Medical History: Reports: Hx End Stage Renal Disease, Hx Hemodialysis GI Medical History: Reports: Hx Colonoscopy, Hx Endoscopy Musculoskeltal Medical History: Reports Hx Arthritis - GENERALIZED (JOVANNA KNEES, LEFT SHOULDER), Reports Hx Gout Psychiatric Medical History: Reports: Hx Depression Past Surgical History: Reports: Hx Cardiac Surgery - artificial valves x2, Hx Hysterectomy, Hx Orthopedic Surgery - Back surgery 2, Hx Valve Replacement - Mitral and aortic valve replacement, Other - Left forearm fistula, EGD, colonoscopy, right IJV PermCath - Immunizations Hx Diphtheria, Pertussis, Tetanus Vaccination: No Hx Pneumococcal Vaccination: 07/28/13 Review of Systems - Review of Systems Constitutional: Weakness. denies: Chills, Fever EENT: No symptoms reported Cardiovascular: See HPI, Palpitations, Dyspnea Respiratory: See HPI, Short of breath Gastrointestinal: Nausea. denies: Vomiting Genitourinary: No symptoms reported Female Genitourinary: Post menopausal Musculoskeletal: No symptoms reported Skin: No symptoms reported Neurological/Psychological: Headaches Physical Exam - Vital signs Interpretation: Tachycardic, Hypoxic - ON ROOM AIR, RESOLVED ON SUPPLEMENTAL O2. , Tachypneic - General General appearance: Appears well, Alert In distress: None - HEENT Head: Normocephalic Eyes: Normal Conjunctiva: Normal Ears: Normal Nasal: Normal Mouth/Lips: Normal Mucous membranes: Normal - Respiratory Respiratory status: Tachypnea. No: No respiratory distress Breath sounds: Normal - Cardiovascular Rhythm: Irregularly irregular, Tachycardia Murmur: No - Abdominal Inspection: Normal Distension: No distension - Extremities General upper extremity: Normal inspection General lower extremity: Normal inspection. No: Tender, Edema - Neurological Neuro grossly intact: Yes Cognition: Normal Orientation: AAOx4 - Psychological Associated symptoms: Normal affect, Normal mood - Skin Skin Temperature: Warm Skin Moisture: Dry Skin Color: Normal Skin Turgor: Elastic Course - Laboratory Result Diagrams: 11/26/16 17:10 11/26/16 17:10 - EKG Interpretation by Nm EKG shows normal: abnormal: Sinus rhythm, [place], QRS Complexes, ST-T Waves - INF. ST DEP. Rate: Tachycardia Rhythm: A.Fib [place]/QRS: Right axis deviation, RBBB - Consults DR. GOMEZ Time consulted: 17:29 Consulted provider: will come to ER Critical Care Note - Critical Care Note Total time excluding time spent on procedures (mins): 30 Comments: Unstable vital signs, aggressive interventions with intravenous medications required to normalize and stabilize. Discharge - Discharge Clinical Impression: Atrial fibrillation with rapid ventricular response, ESRD (end stage renal disease) on dialysis Dyspnea Qualifiers: Dyspnea type: shortness of breath Qualified Code(s): R06.02 - Shortness of breath Admitting Provider: Hospitalist Unit Admitted: [facility]
[2016-11-26] MEDS ORDERED: DILTIAZEM HCL INJ 25 MG/5 ML VIAL IV ONE (17:01)
[2016-11-26] MEDS ORDERED: DILTIAZEM HCL/D5W 125 MG/125 ML RTUINJ IV ONE (17:24)
[2016-11-26] MEDS ORDERED: DILTIAZEM HCL/D5W 125 ML IV PRN ×2 (17:25→17:45)
[2016-11-26 17:30] LABS: ABSOLUTE BASOPHILS # (AUTO) 0.1 10^3/uL (0.0-0.2); ABSOLUTE EOSINOPHILS # (AUTO) 0.1 10^3/uL (0.0-0.6); ABSOLUTE LYMPHOCYTES (AUTO) 0.7 10^3/uL (0.5-4.7); ABSOLUTE MONOCYTES (AUTO) 0.5 10^3/uL (0.1-1.4); ABSOLUTE NEUT (AUTO) 3.2 10^3/uL (1.7-8.2); BASOPHILS % (AUTO) 1.9 % (0-2); EOSINOPHILS % (AUTO) 2.1 % (0-6); HEMATOCRIT 31.1 % (36.0-47.0); HEMOGLOBIN 10.2 g/dL (12.0-15.5); HGB HCT DIFFERENCE -0.5; LYMPHOCYTES % (AUTO) 16.2 % (13-45); MEAN CORPUSCULAR HEMOGLOBIN 31.8 pg (27.0-33.4); MEAN CORPUSCULAR HGB CONC 32.8 g/dL (32.0-36.0); MEAN CORPUSCULAR VOLUME 97 fl (80-97); MONOCYTES % (AUTO) 10.7 % (3-13); RED BLOOD COUNT 3.21 10^6/uL (3.72-5.28); RED CELL DISTRIBUTION WIDTH 19.4 % (11.5-14.0); SEGMENTED NEUTROPHILS % (AUTO) 69.1 % (42-78); WHITE BLOOD COUNT 4.6 10^3/uL (4.0-10.5)
[2016-11-26] MEDS ORDERED: DEXTROSE 40% GEL 15 GM TUBE PO PRN ×2 (17:45)
[2016-11-26] MEDS ORDERED: GLUCAGON,HUMAN RECOMB 1 MG INJ IM PRN (17:45)
[2016-11-26] MEDS ORDERED: INSULIN LISPRO 100 UNIT/ML 3 ML VIAL SUBCUT PRN (17:45)
[2016-11-26] MEDS ORDERED: ONDANSETRON HCL INJ/PF 4 MG/2 ML SDV IV PRN (17:45)
[2016-11-26] MEDS ORDERED: DEXTROSE 50%-WATER 25 GM/50 ML DISP.SYRIN IV PRN ×2 (17:45)
[2016-11-26 17:47] LABS: ALANINE AMINOTRANSFERASE 31 U/L (9-52); ALBUMIN 4.4 g/dL (3.5-5.0); ALKALINE PHOSPHATASE 194 U/L (38-126); ANION GAP 14 (5-19); ASPARTATE AMINO TRANSFERASE 58 U/L (14-36); BILIRUBIN,DIRECT 0.7 mg/dL (0.0-0.4); BILIRUBIN,TOTAL 1.2 mg/dL (0.2-1.3); BLOOD UREA NITROGEN 29 mg/dL (7-20); CALCIUM 9.1 mg/dL (8.4-10.2); CARBON DIOXIDE 27 mmol/L (22-30); CHLORIDE 104 mmol/L (98-107); CREATINE KINASE 56 U/L (30-135); CREATININE RESULT 1.72 mg/dL (0.52-1.25); GLUCOSE 110 mg/dL (75-110); MAGNESIUM 1.8 mg/dL (1.6-2.3); POTASSIUM 4.3 mmol/L (3.6-5.0); SODIUM 144.7 mmol/L (137-145); TOTAL PROTEIN 8.6 g/dL (6.3-8.2)
[2016-11-26] MEDS ORDERED: LORAZEPAM 1 MG TABLET PO ONE (17:50)
[2016-11-26 17:56] LABS: CREATINE KINASE MB 1.44 ng/mL (<4.55); TROPONIN I 0.017 ng/mL
[2016-11-26 18:03] LABS: PROTHROMBIN TIME 19.2 SEC (11.4-15.4)
--- NOTE | 2016-11-26 18:43 | PDOC H&P ---
History of Present Illness Admission Date/PCP: 11/26/16 18:03 CHRIS BENEDICT MD Patient complains of: Shortness of breath History of Present Illness: TAMMY BUCKLEY is a 76 year old female with past medical history of ESRD on hemodialysis presents with shortness of breath. Patient was on hemodialysis today and noted to be tachycardic. EMS was called and she was found to have A. fib with RVR. Patient has been started on IV Cardizem in the emergency department. Past Medical History Cardiac Medical History: Reports: Atrial Fibrillation, Congestive Heart Failure , Myocardial Infarction - 2 mechanical valves, Hyperlipidema, Hypertension, Heart Murmur - Aortic and mitral valve replacement. Denies: Coronary Artery Disease Pulmonary Medical History: Reports: Chronic Obstructive Pulmonary Disease (COPD) Denies: Asthma, Bronchitis, Pneumonia Neurological Medical History: Denies: Seizures Endocrine Medical History: Reports: Diabetes Mellitus Type 2 Renal/ Medical History: Reports: End Stage Renal Disease Musculoskeltal Medical History: Reports: Arthritis - GENERALIZED (JOVANNA KNEES, LEFT SHOULDER), Gout Psychiatric Medical History: Reports: Depression Hematology: Reports: Anemia Past Surgical History Past Surgical History: Reports: Hysterectomy, Orthopedic Surgery - Back surgery 2, Valve Replacement - Mitral and aortic valve replacement, Other - Left forearm fistula, EGD, colonoscopy, right IJV PermCath Social History Information Source: Patient Lives with: Family Smoking Status: Never Smoker Frequency of Alcohol Use: None Hx Recreational Drug Use: No Drugs: None Hx Prescription Drug Abuse: No - Advance Directive Resuscitation Status: Full Code Family History Family History: Reviewed & Not Pertinent, COPD, DM, Hypertension Parental Family History Reviewed: Yes Children Family History Reviewed: Yes Sibling(s) Family History Reviewed.: Yes Medication/Allergy Home Medications: Acetaminophen [Tylenol 325 mg Tablet] 650 mg PO Q12 11/18/16 Albuterol Sulfate [Ventolin Hfa] 1 puff IH Q4 PRN 11/18/16 Atorvastatin Calcium [Lipitor 80 mg Tablet] 80 mg PO QHS 11/18/16 B Complex & C No.20/Folic Acid [Nephrocaps Softgel] 1 mg PO DAILY 11/18/16 Budesonide/Formoterol Fumarate [Symbicort HFA 160-4.5 mcg Inhaler 6 gm] 2 puff IH Q12 11/18/16 Digoxin [Lanoxin 0.125 mg Tablet] 0.0625 mg PO Q2DAYS 11/18/16 Escitalopram Oxalate [Lexapro 10 mg Tablet] 20 mg PO QHS 11/18/16 Ferrous Sulfate [Feosol 325 mg Tablet] 325 mg PO DAILY 11/18/16 Folic Acid [Folvite 1 mg Tablet] 1 mg PO DAILY 11/18/16 Insulin Lispro [Humalog Insulin (Lispro) 100 unit/mL] 0 unit SUBCUT .SLD SCALE 11/18/16 Isosorbide Dinitrate [Isordil Titradose 20 mg Tablet] 20 mg PO Q8 11/18/16 Metoprolol Succinate [Toprol Xl 25 mg Tab.sr] 12.5 mg PO Q12 11/18/16 Pantoprazole Sodium [Protonix] 40 mg PO DAILY 11/18/16 Spironolactone [Aldactone 25 mg Tablet] 12.5 mg PO DAILY 11/18/16 Tiotropium [place] [Spiriva Handihaler 5 Cap/Kit (18 Mcg/Cap)] 1 cap IH DAILY Trazodone HCl [Desyrel 50 mg Tablet] 25 mg PO QHS 11/18/16 Warfarin Sodium [Coumadin 7.5 mg Tablet] 7.5 mg PO DAILY@1600 11/18/16 Allergies/Adverse Reactions: Penicillins Allergy (Severe, Verified 11/18/16 14:53) Swelling of hands and/or feet vancomycin [Vancomycin] Adverse Reaction (Intermediate, Verified 11/18/16 14:53) Swelling of hands and/or feet hydrochlorothiazide [From Dyazide] Adverse Reaction (Verified 11/18/16 14:53) Swelling of hands and/or feet triamterene [From Dyazide] Adverse Reaction (Verified 11/18/16 14:53) Swelling of hands and/or feet Review of Systems Constitutional: ABSENT: chills, fever(s), headache(s), weight gain, weight loss Eyes: ABSENT: visual disturbances Ears: ABSENT: hearing changes Cardiovascular: PRESENT: palpitations. ABSENT: chest pain, dyspnea on exertion , edema, orthropnea Respiratory: PRESENT: dyspnea. ABSENT: cough, hemoptysis Gastrointestinal: ABSENT: abdominal pain, constipation, diarrhea, hematemesis, hematochezia, nausea, vomiting Genitourinary: ABSENT: dysuria, hematuria Musculoskeletal: ABSENT: joint swelling Integumentary: ABSENT: rash, wounds Neurological: ABSENT: abnormal gait, abnormal speech, confusion, dizziness, focal weakness, syncope Psychiatric: ABSENT: anxiety, depression, homidical ideation, suicidal ideation Endocrine: ABSENT: cold intolerance, heat intolerance, polydipsia, polyuria Hematologic/Lymphatic: ABSENT: easy bleeding, easy bruising Physical Exam Vital Signs: PHYSICAL EXAM: GENERAL: Appears well, no acute distress HEENT: Normocephalic, no scleral icterus, conjunctiva clear, EOEM intact, PERRLA , moist mucous membranes NECK: trachea midline, no thyromegally RESPIRATORY: Clear to auscultation, no wheezes/rhonchi CARDIAC: Irregular, tachycardic, mechanical click ABDOMEN: Soft, no distension, no tenderness, no guarding, normal bowel sounds, negative Cobos sign RECTAL: deferred : deferred EXTREMITIES: No edema, cyanosis, clubbing MUSCULOSKELETAL: No joint swelling or deformity VASCULAR: normal peripheral pulses NEUROLOGIC: Alert, oriented to person/place/time, normal speech, cranial nerves grossly intact, 5/5 strength in all extremities, tactile sensation intact in all extremities SKIN: No rash, no wounds, no worrisome skin lesions PSYCHIATRIC: Normal mood, normal affect Results Laboratory Results: Labs- All tests 24 hr 11/26/16 11/26/16 11/26/16 17:10 17:10 17:10 WBC 4.6 RBC 3.21 L Hgb 10.2 L Hct 31.1 L MCV 97 MCH 31.8 MCHC 32.8 RDW 19.4 H Plt Count 144 L Seg Neutrophils % 69.1 Lymphocytes % 16.2 Monocytes % 10.7 Eosinophils % 2.1 Basophils % 1.9 Absolute Neutrophils 3.2 Absolute Lymphocytes 0.7 Absolute Monocytes 0.5 Absolute Eosinophils 0.1 Absolute Basophils 0.1 PT INR Sodium 144.7 Potassium 4.3 Chloride 104 Carbon Dioxide 27 Anion Gap 14 BUN 29 H Creatinine 1.72 H Est GFR ( Amer) 35 L Est GFR (Non-Af Amer) 29 L Glucose 110 Calcium 9.1 Magnesium 1.8 Total Bilirubin 1.2 Direct Bilirubin 0.7 H Indirect Bilirubin Not Reportable Neonat Total Bilirubin Not Reportable AST 58 H ALT 31 Alkaline Phosphatase 194 H Creatine Kinase 56 CK-MB (CK-2) 1.44 Troponin I 0.017 Total Protein 8.6 H Albumin 4.4 11/26/16 17:10 WBC RBC Hgb Hct MCV MCH MCHC RDW Plt Count Seg Neutrophils % Lymphocytes % Monocytes % Eosinophils % Basophils % Absolute Neutrophils Absolute Lymphocytes Absolute Monocytes Absolute Eosinophils Absolute Basophils PT 19.2 H INR 1.55 Sodium Potassium Chloride Carbon Dioxide Anion Gap BUN Creatinine Est GFR ( Amer) Est GFR (Non-Af Amer) Glucose Calcium Magnesium Total Bilirubin Direct Bilirubin Indirect Bilirubin Neonat Total Bilirubin AST ALT Alkaline Phosphatase Creatine Kinase CK-MB (CK-2) Troponin I Total Protein Albumin EKG Comments: Atrial fibrillation with rapid ventricular response, right bundle branch block ( old) Impressions: Chest X-Ray 11/26/16 16:55 IMPRESSION: CARDIAC ENLARGEMENT. STABLE DEGREE OF PULMONARY EDEMA WITH RIGHT PLEURAL EFFUSION Assessment & Plan - Diagnosis (1) Atrial fibrillation with rapid ventricular response Is this a current diagnosis for this admission?: YesPlan: Continue Cardizem drip initiated in the emergency department. Continue current dose of metoprolol for now but we may increase this once patient is taken off Cardizem drip. Consult Dr. Martines of cardiology. Serial cardiac enzymes. (2) ESRD (end stage renal disease) on dialysis Is this a current diagnosis for this admission?: YesPlan: Consult Dr. Nelson of nephrology. (3) RBBB Is this a current diagnosis for this admission?: YesPlan: This is old as compared to prior EKGs. 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 (6) H/O prosthetic aortic valve replacement Is this a current diagnosis for this admission?: YesPlan: Increase Coumadin to 10 mg nightly for cold INR 2.5-3.5. (7) H/O prosthetic mitral valve Is this a current diagnosis for this admission?: Yes - Time Time Spent: Greater than 70 Minutes Anticipated discharge: Home Within: within 48 hours
--- NOTE | 2016-11-26 19:11 | EKG REPORT ---
SEVERITY:- DEFECTIVE ECG - ATRIAL FIBRILLATION, V-RATE 101-185 RIGHT BUNDLE BRANCH BLOCK LATERAL INFARCT, AGE INDETERMINATE( ERROR, ARM LEADS REVERSED) ST DEPRESSION, CONSIDER ISCHEMIA, INF LEADS : Confirmed by: Michael Foster MD 26-Nov-2016 19:10:59
[2016-11-26] MEDS ORDERED: DILTIAZEM HCL INJ 25 MG/5 ML VIAL IV PRN (20:27)
[2016-11-26] MEDS ORDERED: METOPROLOL TARTRATE PF/INJ 5 MG/5 ML SDV IV PRN (21:16)
[2016-11-26] MEDS ORDERED: DEXTROSE 5%-WATER 500 ML with AMIODARONE HCL 900 MG IV PRN ×2 (21:17)
[2016-11-26] MEDS: ATORVASTATIN CALCIUM 80 MG TABLET PO SCH (21:53)
[2016-11-26] MEDS: METOPROLOL SUCCINATE 25 MG TAB.SR.24H PO SCH (21:53)
[2016-11-26] MEDS: WARFARIN SODIUM 5 MG TABLET PO SCH (21:53)
[2016-11-26] MEDS ORDERED: WARFARIN SODIUM 7.5 MG TABLET PO SCH (22:00)
[2016-11-27] MEDS: LORAZEPAM 1 MG TABLET PO PRN ×2 (02:53→21:09)
[2016-11-27 03:53] LABS: APPEARANCE,URINE CLOUDY; BILIRUBIN,URINE NEGATIVE (NEGATIVE); GLUCOSE, URINE NEGATIVE (NEGATIVE); KETONES,URINE NEGATIVE (NEGATIVE); LEUKOCYTE ESTERASE,URINE SMALL (NEGATIVE); NITRITE,URINE NEGATIVE (NEGATIVE); PROTEIN,URINE 100 mg/dL (NEGATIVE); URINE SPECIFIC GRAVITY 1.021; UROBILINOGEN,URINE NEGATIVE mg/dL (<2.0)
[2016-11-27 06:20] LABS: ABSOLUTE LYMPHOCYTES (AUTO) 0.6 10^3/uL (0.5-4.7); ABSOLUTE MONOCYTES (AUTO) 0.5 10^3/uL (0.1-1.4); ABSOLUTE NEUT (AUTO) 3.8 10^3/uL (1.7-8.2); BASOPHILS % (AUTO) 0.9 % (0-2); EOSINOPHILS % (AUTO) 0.3 % (0-6); HEMATOCRIT 28.3 % (36.0-47.0); HEMOGLOBIN 9.4 g/dL (12.0-15.5); HGB HCT DIFFERENCE -0.1; LYMPHOCYTES % (AUTO) 11.7 % (13-45); MEAN CORPUSCULAR HEMOGLOBIN 32.2 pg (27.0-33.4); MEAN CORPUSCULAR HGB CONC 33.3 g/dL (32.0-36.0); MEAN CORPUSCULAR VOLUME 97 fl (80-97); MONOCYTES % (AUTO) 9.5 % (3-13); RED BLOOD COUNT 2.92 10^6/uL (3.72-5.28); RED CELL DISTRIBUTION WIDTH 19.7 % (11.5-14.0); SEGMENTED NEUTROPHILS % (AUTO) 77.6 % (42-78); WHITE BLOOD COUNT 4.9 10^3/uL (4.0-10.5)
[2016-11-27 06:28] LABS: PROTHROMBIN TIME 21.2 SEC (11.4-15.4)
[2016-11-27 06:37] LABS: ANION GAP 14 (5-19); BLOOD UREA NITROGEN 35 mg/dL (7-20); CALCIUM 8.8 mg/dL (8.4-10.2); CARBON DIOXIDE 27 mmol/L (22-30); CHLORIDE 102 mmol/L (98-107); CREATININE RESULT 2.52 mg/dL (0.52-1.25); GLUCOSE 136 mg/dL (75-110); SODIUM 142.6 mmol/L (137-145)
[2016-11-27 07:05] LABS: FREE T3 2.75 pg/mL (2.77-5.27)
[2016-11-27 07:19] LABS: THYROID STIMULATING HORMONE 2.32 uIU/mL (0.47-4.68)
--- NOTE | 2016-11-27 08:16 | EKG REPORT ---
SEVERITY:- ABNORMAL ECG - ATRIAL FIBRILLATION RIGHT BUNDLE BRANCH BLOCK INFERIOR INFARCT, OLD : Confirmed by: Michael Foster MD 27-Nov-2016 08:16:22
--- NOTE | 2016-11-27 08:16 | EKG REPORT ---
SEVERITY:- ABNORMAL ECG - ATRIAL FIBRILLATION RIGHT BUNDLE BRANCH BLOCK LVH WITH SECONDARY REPOLARIZATION ABNORMALITY INFERIOR INFARCT, AGE INDETERMINATE : Confirmed by: Michael Foster MD 27-Nov-2016 08:16:34
--- NOTE | 2016-11-27 08:18 | EKG REPORT ---
SEVERITY:- ABNORMAL ECG - ATRIAL FIBRILLATION WITH RVR. RIGHT BUNDLE BRANCH BLOCK OLD INFERIOR PA : Confirmed by: Michael Foster MD 27-Nov-2016 08:17:55
[2016-11-27] MEDS ORDERED: LEVALBUTEROL HCL NEB 1.25 MG/3 ML AMPUL NEB ONE (08:59)
[2016-11-27] MEDS: LEVALBUTEROL HCL NEB 1.25 MG/3 ML AMPUL NEB PRN (09:08)
[2016-11-27] MEDS: LANSOPRAZOLE 30 MG TAB.RAP.DR PO SCH (11:26)
[2016-11-27] MEDS: METOPROLOL SUCCINATE 25 MG TAB.SR.24H PO SCH ×2 (11:27→17:05)
--- NOTE | 2016-11-27 11:28 | PDOC CONSULTATION ---
Consultation Consult Date: 11/26/16 Attending physician:: ALIREZA GOMEZ Consult reason:: Atrial fibrillation with rapid ventricular response History of Present Illness Admission Date/PCP: 11/26/16 17:45 CHRIS BENEDICT MD Patient complains of: Palpitations and shortness of breath History of Present Illness: TAMMY BUCKLEY is a 76 year old female with past medical history of ESRD on hemodialysis presents with shortness of breath. Patient was on hemodialysis today and noted to be tachycardic. EMS was called and she was found to have A. fib with RVR. Patient has been started on IV Cardizem in the emergency department. Patient on questioning also complained of being short of breath. I was asked to help with management of atrial fibrillation with rapid ventricular response. Patient has a complicated cardiac history with mechanical heart valves, pulmonary hypertension, chronic congestive heart failure, end stage renal disease. On repeated questioning patient denied any chest pain. She did complain of feeling nonspecifically unwell. Patient denied any fever or chills. Patient claims compliance with medication but it's her daughter who gives her the medications. Past Medical History Cardiac Medical History: Reports: Atrial Fibrillation, Congestive Heart Failure , Myocardial Infarction - 2 mechanical valves, Hyperlipidema, Hypertension, Heart Murmur - Aortic and mitral valve replacement. Denies: Coronary Artery Disease Pulmonary Medical History: Reports: Chronic Obstructive Pulmonary Disease (COPD) Denies: Asthma, Bronchitis, Pneumonia Neurological Medical History: Denies: Seizures Endocrine Medical History: Reports: Diabetes Mellitus Type 2 Renal/ Medical History: Reports: End Stage Renal Disease Musculoskeltal Medical History: Reports: Arthritis - GENERALIZED (JOVANNA KNEES, LEFT SHOULDER), Gout Psychiatric Medical History: Reports: Depression Hematology: Reports: Anemia Past Surgical History Past Surgical History: Reports: Hysterectomy, Orthopedic Surgery - Back surgery 2, Valve Replacement - Mitral and aortic valve replacement, Other - Left forearm fistula, EGD, colonoscopy, right IJV PermCath Social History Information Source: Patient Lives with: Family Smoking Status: Never Smoker Frequency of Alcohol Use: None Hx Recreational Drug Use: No Drugs: None Hx Prescription Drug Abuse: No - Advance Directive Resuscitation Status: Full Code Surrogate healthcare decision maker:: Patient's daughter is the surrogate decision maker Family History Family History: Reviewed & Not Pertinent, COPD, DM, Hypertension Parental Family History Reviewed: Yes Children Family History Reviewed: Yes Sibling(s) Family History Reviewed.: Yes - Negative for premature coronary artery disease or sudden cardiac in the family amongst first degree relatives. Medication/Allergy Home Medications: Atorvastatin Calcium [Lipitor 80 mg Tablet] 80 mg PO QHS 11/26/16 B Complex & C No.20/Folic Acid [Virt-Caps Softgel] 1 mg PO DAILY 11/26/16 Digoxin [Lanoxin 0.125 mg Tablet] 0.125 mg PO Q48H 11/26/16 Escitalopram Oxalate [Lexapro] 20 mg PO DAILY 11/26/16 Lorazepam [Ativan 1 mg Tablet] 1 mg PO BIDP PRN 11/26/16 Metoprolol Tartrate [Lopressor 25 mg Tablet] 12.5 mg PO Q12 11/26/16 Pantoprazole Sodium [Protonix] 40 mg PO DAILY 11/26/16 Spironolactone [Aldactone 25 mg Tablet] 12.5 mg PO DAILY 11/26/16 Trazodone HCl [Desyrel 50 mg Tablet] 25 mg PO QHS 11/26/16 Warfarin Sodium [Coumadin 2.5 mg Tablet] 2.5 mg PO HSP PRN 11/26/16 Warfarin Sodium [Coumadin 7.5 mg Tablet] 7.5 mg PO DAILY@1600 11/26/16 Allergies/Adverse Reactions: Penicillins Allergy (Severe, Verified 11/26/16 20:18) Swelling of hands and/or feet vancomycin [Vancomycin] Adverse Reaction (Intermediate, Verified 11/26/16 20:18) Swelling of hands and/or feet hydrochlorothiazide [From Dyazide] Adverse Reaction (Verified 11/26/16 20:18) Swelling of hands and/or feet triamterene [From Dyazide] Adverse Reaction (Verified 11/26/16 20:18) Swelling of hands and/or feet Review of Systems Review of Systems: Please see history of present illness and past medical history as wall. Constitutional: No fever or chills reported. Head : No recent chronic headaches, recent head injury. Eyes: No recent eye pain, diplopia, redness, discharge, acute visual changes. Ears: No recent chronic ear pain, acute hearing loss, ear discharge. Oral cavity: No recent ulcerations, bleeding, oral cavity discomfort. Neck: No recent acute neck pain reported. Hematologic: No recent easy bruising or bleeding or hematologic malignancy reported. Lymphatic: No recent lymphatic malignancy, chronic lymphadenopathy reported yet Cardiovascular system review: See history of present illness. Palpitations noted. No chest pains noted Respiratory system review: No recent chronic cough, hemoptysis, blood clots in the lungs reported. Mild Shortness of breath on exertion Gastrointestinal system review: Negative for any recent acute or chronic abdominal pain, hematemesis, melena, recent change in bowel habits. Genitourinary system review: No recent acute or chronic hematuria, flank pain, UTI etc. reported. Skin system review: Negative for any recent abnormal bruising, no rash, no pruritus reported. Neurologic: No prior history of strokes, mini strokes, seizure disorder. Psychologic: No history of major psychosis or major depression reported. Musculoskeletal: Minor aches and pains reported. No acute joint swelling reported. Endocrine: No recent polyuria, polydipsia, recent heat or cold intolerance. Physical Exam Exam: GENERAL: well-nourished and in no acute distress. Alert and oriented x3 HEAD: Atraumatic, normocephalic. EYES: Pupils equal round and reactive to light, extraocular movements intact, sclera anicteric, conjunctiva are normal. ENT: TMs normal, nares patent, oropharynx clear without exudates. Moist mucous membranes. No oral ulcerations or bleeding gums noted NECK: supple without lymphadenopathy. Trachea is central. No cervical or axillary lymphadenopathy noted. Carotids are 2+, JVD 12 CM LUNGS: Respiration seems nonlabored, no significant accessory muscle action noted. Bibasal a fine crackles are noted. No significant dullness noted CHEST: Palpation of the chest wall shows no significant chest wall tenderness. No other significant abnormalities noted. 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 Prosthetic valve sounds are noted to be crisp ABDOMEN: Soft, no significant tenderness appreciated, normoactive bowel sounds. No guarding, no rebound. No rigidity noted . No masses appreciated. EXTREMITIES: Pedal pulses are 1-2+, no calf tenderness noted. No clubbing or cyanosis.trace to 1+ pedal edema noted NEUROLOGICAL: Focused neurological exam showed no significant neurologic deficit. Normal speech, no focal weakness appreciated. PSYCH: Normal mood, normal affect. Judgment and insight within normal limits. SKIN: No significant ecchymosis, rash, ulcerations or signs of pruritus noted. MUSCULOSKELETAL EXAM: No significant joint swelling noted. Results Laboratory Results: Reviewed. EKG Comments: Atrial fibrillation with rapid ventricular response and right bundle branch block pattern. Secondary ST-T wave changes are noted. Possible arm lead reversal on initial EKG. Impressions: Chest X-Ray 11/26/16 16:55 IMPRESSION: CARDIAC ENLARGEMENT. STABLE DEGREE OF PULMONARY EDEMA WITH RIGHT PLEURAL EFFUSION Assessment & Plan - Diagnosis (1) Atrial fibrillation with rapid ventricular response Is this a current diagnosis for this admission?: Yes (2) Congestive heart failure Qualifiers: Congestive heart failure type: unspecified congestive heart failure type Congestive heart failure chronicity: acute on chronic Qualified Code(s ): I50.9 - Heart failure, unspecified Is this a current diagnosis for this admission?: Yes (3) Dyspnea Qualifiers: Dyspnea type: shortness of breath Qualified Code(s): R06.02 - Shortness of breath Is this a current diagnosis for this admission?: Yes (4) ESRD (end stage renal disease) on dialysis Is this a current diagnosis for this admission?: Yes (5) H/O prosthetic mitral valve Is this a current diagnosis for this admission?: Yes - Notes Notes: Atrial fibrillation with rapid ventricular response: This is a chronic recurrent problem for this patient. Exact reason not clear but could be noncompliance, precipitation of congestive heart failure. Patient on Cardizem drip. Later on, Cardizem drip was not controlling the heart rate and patient blood pressure was also noted to be low therefore was started on amiodarone drip and bolus protocol. Discussed possibility of AV node ablation and placement of permanent pacemaker but there is increased risk of pacemaker infection in end-stage renal disease patient on chronic hemodialysis. Patient herself does not want to make any decision. At this point will try another attempt at control of heart rate with medication. Continue with chronic anticoagulation. Congestive heart failure: This is acute on chronic secondary to diastolic dysfunction. Precipitated by volume overload and also atrial fibrillation with rapid ventricular response. Recommend fluid removal on dialysis. Patient has been advised on salt and fluid restriction. Dyspnea: Multifactorial. Currently related to CHF and atrial fibrillation with rapid ventricular response. Patient does have some underlying lung problem and pulmonary hypertension. End-stage renal disease: Patient on hemodialysis. Patient being managed by Dr. Nelson. History of mechanical prosthetic heart valves in mitral and aortic positions: Patient would need chronic anticoagulation. Clinically this seems to be functioning normally. There have been difficult to assess by 2-D echocardiogram in the past. At this point will recommend chronic anticoagulation with INR range at 3.0-3.5. Patient is quite complicated and has been difficult to manage. - Time Time Spent: 50 to 70 Minutes - CODE STATUS was discussed, patient remains full code. Surrogate decision-maker patient's daughter. Multiple medical problems were addressed.More than 50% of the time spent coordinating care, discussing management plans with involved caregivers. Management plans discussed with involved personnels. Medical decision making was of moderate to high complexity , patient's has multiple severe comorbidities.
--- NOTE | 2016-11-27 13:16 | PDOC PROGRESS REPORT ---
Subjective Progress Note for:: 11/27/16 Subjective:: Patient seems to be doing better with gradual improvement. Pt is denying any chest arm or neck discomfort. Patient denying any PND, orthopnea. Patient denied any sustained palpitations, dizziness, syncope, near syncope. Patient denying any fever chills. Patient denying any other significant discomfort. Patient is maintaining chronic atrial fibrillation. Currently on amiodarone drip. Review of systems: Rest review of systems negative. Medications: Medications have been reviewed. Physical Exam Vital Signs: Temp Pulse Resp BP Pulse Ox 97.9 F 86 24 H 114/84 96 11/27/16 12:00 11/27/16 12:00 11/27/16 12:00 11/27/16 12:00 11/27/16 12:00 Intake & Output 11/26/16 11/27/16 11/28/16 06:59 06:59 06:59 Intake Total 414 Output Total 0 0 Balance 0 414 Weight 74.5 kg Exam: GENERAL: well-nourished and in no acute distress. Alert and oriented x3 HEAD: Atraumatic, normocephalic. EYES: Pupils equal round and reactive to light, extraocular movements intact, sclera anicteric, conjunctiva are normal. ENT: TMs normal, nares patent, oropharynx clear without exudates. Moist mucous membranes. No oral ulcerations or bleeding gums noted NECK: supple without lymphadenopathy. Trachea is central. No cervical or axillary lymphadenopathy noted. Carotids are 2+, JVD ELEVATED AT 12 CM LUNGS: Respiration seems nonlabored, no significant accessory muscle action noted. Bilateral fine crackles are noted. CHEST: Palpation of the chest wall shows no significant chest wall tenderness. No other significant abnormalities noted. 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 Prosthetic valve sounds are crisp. ABDOMEN: Soft, no significant tenderness appreciated, normoactive bowel sounds. No guarding, no rebound. No rigidity noted . No masses appreciated. EXTREMITIES: Pedal pulses are 1-2+, no calf tenderness noted. No clubbing or cyanosis.trace to 1+ pedal edema noted NEUROLOGICAL: Focused neurological exam showed no significant neurologic deficit. Normal speech, no focal weakness appreciated. PSYCH: Normal mood, normal affect. Judgment and insight within normal limits. SKIN: No significant ecchymosis, rash, ulcerations or signs of pruritus noted. MUSCULOSKELETAL EXAM: No significant joint swelling noted. Results Laboratory Results: 11/27/16 06:05 11/27/16 06:05 11/27/16 11/27/16 11/27/16 02:40 06:05 06:05 WBC 4.9 RBC 2.92 L Hgb 9.4 L Hct 28.3 L MCV 97 MCH 32.2 MCHC 33.3 RDW 19.7 H Plt Count 148 L Seg Neutrophils % 77.6 Lymphocytes % 11.7 L Monocytes % 9.5 Eosinophils % 0.3 Basophils % 0.9 Absolute Neutrophils 3.8 Absolute Lymphocytes 0.6 Absolute Monocytes 0.5 Absolute Eosinophils 0.0 Absolute Basophils 0.0 Sodium 142.6 Potassium 5.0 Chloride 102 Carbon Dioxide 27 Anion Gap 14 BUN 35 H Creatinine 2.52 H Est GFR ( Amer) 22 L Est GFR (Non-Af Amer) 19 L Glucose 136 H Calcium 8.8 TSH Free T4 Free T3 pg/mL Urine Color PANDA Urine Appearance CLOUDY Urine pH 5.0 Ur Specific [place] 1.021 Urine Protein 100 H Urine Glucose (UA) NEGATIVE Urine Ketones NEGATIVE Urine Blood NEGATIVE Urine Nitrite NEGATIVE Ur Leukocyte Esterase SMALL H Urine WBC (Auto) 25 Urine RBC (Auto) 5 11/27/16 06:05 WBC RBC Hgb Hct MCV MCH MCHC RDW Plt Count Seg Neutrophils % Lymphocytes % Monocytes % Eosinophils % Basophils % Absolute Neutrophils Absolute Lymphocytes Absolute Monocytes Absolute Eosinophils Absolute Basophils Sodium Potassium Chloride Carbon Dioxide Anion Gap BUN Creatinine Est GFR ( Amer) Est GFR (Non-Af Amer) Glucose Calcium TSH 2.32 Free T4 1.36 Free T3 pg/mL 2.75 L Urine Color Urine Appearance Urine pH Ur Specific [place] Urine Protein Urine Glucose (UA) Urine Ketones Urine Blood Urine Nitrite Ur Leukocyte Esterase Urine WBC (Auto) Urine RBC (Auto) 11/26/16 11/27/16 11/27/16 21:35 01:23 06:05 Troponin I 0.015 0.015 0.012 Impressions: Chest X-Ray 11/26/16 16:55 IMPRESSION: CARDIAC ENLARGEMENT. STABLE DEGREE OF PULMONARY EDEMA WITH RIGHT PLEURAL EFFUSION Status: Image reviewed by me - Chest x-ray reviewed by me. Shows cardiomegaly, pulmonary venous congestion and right pleural effusion consistent with CHF. Assessment & Plan - Diagnosis (1) Atrial fibrillation with rapid ventricular response Is this a current diagnosis for this admission?: Yes (2) Congestive heart failure Qualifiers: Congestive heart failure type: unspecified congestive heart failure type Congestive heart failure chronicity: acute on chronic Qualified Code(s ): I50.9 - Heart failure, unspecified Is this a current diagnosis for this admission?: Yes (3) Dyspnea Qualifiers: Dyspnea type: shortness of breath Qualified Code(s): R06.02 - Shortness of breath Is this a current diagnosis for this admission?: Yes (4) ESRD (end stage renal disease) on dialysis Is this a current diagnosis for this admission?: Yes (5) H/O prosthetic mitral valve Is this a current diagnosis for this admission?: Yes - Notes Notes: Atrial fibrillation with rapid ventricular response: Currently on Cardizem drip. Currently also on amiodarone drip. Will start patient on very low-dose beta val. Will switch patient to by mouth Cardizem. Congestive heart failure: Patient clearly volume overloaded with elevated JVP. Patient to have dialysis with fluid removal today. Dyspnea: Patient still dyspneic. Patient on oxygen supplementation via Ventimask. End-stage renal disease on dialysis: Patient to get dialysis today. Recommend removal of fluid on dialysis. 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 Patient currently subtherapeutic. Hospitalist managing this. Patient is critically ill and has numerous severe comorbid diagnosis. Will continue to follow patient. - Time Time with patient: Greater than 35 minutes - CODE STATUS was discussed, patient remains full code. Surrogate decision-maker patient's daughter. Multiple medical problems were addressed.More than 50% of the time spent coordinating care, discussing management plans with involved caregivers. Management plans discussed with involved personnels. Medical decision making was of moderate to high complexity, patient's has multiple severe comorbidities. Medications reviewed and adjusted accordingly: Yes
[2016-11-27] MEDS ORDERED: EPOETIN ALFA 10,000 UNIT in SYRINGE, DISPOSABLE, 1 EACH IV PRN (14:12)
[2016-11-27] MEDS ORDERED: HEPARIN SOD (PORCINE) 1,000 UNIT/ML 10 ML VIAL MC PRN (14:12)
--- NOTE | 2016-11-27 16:17 | PDOC CONSULTATION ---
Consultation Consult Date: 11/27/16 Consult reason:: hemodialysis. History of Present Illness Admission Date/PCP: 11/26/16 17:45 CHRIS BENEDICT MD History of Present Illness: TAMMY BUCKLEY is a 76 year old female with past medical history of ESRD on hemodialysis presents with shortness of breath. Patient was on hemodialysis today and noted to be tachycardic. EMS was called and she was found to have A. fib with RVR. Patient has been started on IV Cardizem in the emergency department. Patient on questioning also complained of being short of breath. Patient has a complicated comorbid history to include Dementia, cardiac history with mechanical heart valves, pulmonary hypertension, chronic congestive heart failure, end stage renal disease. On repeated questioning patient denied any chest pain. She did complain of feeling nonspecifically unwell. Patient denied any fever or chills. She does not remeber any of her medications and what exactly are her health issues. Compliance is an issue especially with her worsening Dementia and poor psycho social circumstances. Patient claims compliance with medication but it's her daughter who gives her the medications. I saw her in the AM and later on HD. Her BP was low normal from the IV Cardizem which had to held back transiently to allow HD . Past Medical History Cardiac Medical History: Reports: Atrial Fibrillation, Heart Murmur - Aortic and mitral valve replacement., Hyperlipidemia, Hypertension-primary, Myocardial Infarction - 2 mechanical valves Denies: Coronary Artery Disease Pulmonary Medical History: Reports: Chronic Obstructive Pulmonary Disease (COPD) Denies: Asthma, Bronchitis, Pneumonia Neurological Medical History: Denies: Seizures Endocrine Medical History: Reports: Diabetes Mellitus Type 2 Renal/ Medical History: Reports: End Stage Renal Disease Musculoskeltal Medical History: Reports: Arthritis - GENERALIZED (JOVANNA KNEES, LEFT SHOULDER), Gout Psychiatric Medical History: Reports: Depression Hematology Medical History: Reports Anemia of Chronic Kidney Disease Past Surgical History Past Surgical History: Reports: Hysterectomy, Orthopedic Surgery - Back surgery 2, Valve Replacement - Mitral and aortic valve replacement, Other - Left forearm fistula, EGD, colonoscopy, right IJV PermCath Social History Lives with: Family Smoking Status: Never Smoker Frequency of Alcohol Use: None Hx Recreational Drug Use: No Drugs: None Hx Prescription Drug Abuse: No - Advance Directive Resuscitation Status: Full Code Family History Parental Family History Reviewed: Yes - negative for CKD. Children Family History Reviewed: No Sibling(s) Family History Reviewed.: No Medication/Allergy Home Medications: Atorvastatin Calcium [Lipitor 80 mg Tablet] 80 mg PO QHS 11/26/16 B Complex & C No.20/Folic Acid [Virt-Caps Softgel] 1 mg PO DAILY 11/26/16 Digoxin [Lanoxin 0.125 mg Tablet] 0.125 mg PO Q48H 11/26/16 Escitalopram Oxalate [Lexapro] 20 mg PO DAILY 11/26/16 Lorazepam [Ativan 1 mg Tablet] 1 mg PO BIDP PRN 11/26/16 Metoprolol Tartrate [Lopressor 25 mg Tablet] 12.5 mg PO Q12 11/26/16 Pantoprazole Sodium [Protonix] 40 mg PO DAILY 11/26/16 Spironolactone [Aldactone 25 mg Tablet] 12.5 mg PO DAILY 11/26/16 Trazodone HCl [Desyrel 50 mg Tablet] 25 mg PO QHS 11/26/16 Warfarin Sodium [Coumadin 2.5 mg Tablet] 2.5 mg PO HSP PRN 11/26/16 Warfarin Sodium [Coumadin 7.5 mg Tablet] 7.5 mg PO DAILY@1600 11/26/16 Allergies/Adverse Reactions: Penicillins Allergy (Severe, Verified 11/26/16 20:18) Swelling of hands and/or feet vancomycin [Vancomycin] Adverse Reaction (Intermediate, Verified 11/26/16 20:18) Swelling of hands and/or feet hydrochlorothiazide [From Dyazide] Adverse Reaction (Verified 11/26/16 20:18) Swelling of hands and/or feet triamterene [From Dyazide] Adverse Reaction (Verified 11/26/16 20:18) Swelling of hands and/or feet Review of Systems Constitutional: PRESENT: fatigue, weakness. ABSENT: anorexia, chills, fever(s) , headache(s), night sweats Nose, Mouth, and Throat: ABSENT: mouth pain, sore throat, vertigo Cardiovascular: ABSENT: chest pain, dyspnea on exertion, orthropnea Respiratory: ABSENT: cough, dyspnea Gastrointestinal: PRESENT: diarrhea - intermittently x few days.. ABSENT: abdominal pain, coffee ground emesis, constipation, dysphagia, hematemesis, hematochezia, melena, vomiting Genitourinary: ABSENT: dysuria, hematuria Integumentary: ABSENT: lesions, pruritus Neurological: PRESENT: weakness. ABSENT: abnormal movements, convulsions, focal weakness, vertigo Physical Exam Vital Signs: Temp Pulse Resp BP Pulse Ox 97.6 F 88 19 99/55 L 98 11/27/16 14:00 11/27/16 14:00 11/27/16 14:00 11/27/16 14:00 11/27/16 14:00 Intake & Output 11/26/16 11/27/16 11/28/16 06:59 06:59 06:59 Intake Total 414 Output Total 0 0 Balance 0 414 Weight 74.5 kg General appearance: PRESENT: no acute distress Eye exam: PRESENT: conjunctiva pink, EOMI, PERRLA. ABSENT: nystagmus, scleral icterus Ear exam: PRESENT: normal external ear exam Mouth exam: PRESENT: moist, neck supple Neck exam: ABSENT: lymphadenopathy, meningismus, tenderness, thyromegaly, tracheal deviation Respiratory exam: PRESENT: clear to auscultation jovanna, crackles - few bilateral .. ABSENT: rhonchi Cardiovascular exam: PRESENT: +S1, +S2, systolic murmur GI/Abdominal exam: PRESENT: normal bowel sounds, soft. ABSENT: distended, firm , organomegaly, tenderness Extremities exam: ABSENT: pedal edema Neurological exam: PRESENT: awake. ABSENT: oriented to person, oriented to place, oriented to time Psychiatric exam: PRESENT: flat affect Skin exam: ABSENT: erythema, mottled, rash Results Laboratory Results: 11/27/16 06:05 11/27/16 06:05 11/27/16 11/27/16 11/27/16 02:40 06:05 06:05 WBC 4.9 RBC 2.92 L Hgb 9.4 L Hct 28.3 L MCV 97 MCH 32.2 MCHC 33.3 RDW 19.7 H Plt Count 148 L Seg Neutrophils % 77.6 Lymphocytes % 11.7 L Monocytes % 9.5 Eosinophils % 0.3 Basophils % 0.9 Absolute Neutrophils 3.8 Absolute Lymphocytes 0.6 Absolute Monocytes 0.5 Absolute Eosinophils 0.0 Absolute Basophils 0.0 Sodium 142.6 Potassium 5.0 Chloride 102 Carbon Dioxide 27 Anion Gap 14 BUN 35 H Creatinine 2.52 H Est GFR ( Amer) 22 L Est GFR (Non-Af Amer) 19 L Glucose 136 H Calcium 8.8 TSH Free T4 Free T3 pg/mL Urine Color PANDA Urine Appearance CLOUDY Urine pH 5.0 Ur Specific [place] 1.021 Urine Protein 100 H Urine Glucose (UA) NEGATIVE Urine Ketones NEGATIVE Urine Blood NEGATIVE Urine Nitrite NEGATIVE Ur Leukocyte Esterase SMALL H Urine WBC (Auto) 25 Urine RBC (Auto) 5 11/27/16 06:05 WBC RBC Hgb Hct MCV MCH MCHC RDW Plt Count Seg Neutrophils % Lymphocytes % Monocytes % Eosinophils % Basophils % Absolute Neutrophils Absolute Lymphocytes Absolute Monocytes Absolute Eosinophils Absolute Basophils Sodium Potassium Chloride Carbon Dioxide Anion Gap BUN Creatinine Est GFR ( Amer) Est GFR (Non-Af Amer) Glucose Calcium TSH 2.32 Free T4 1.36 Free T3 pg/mL 2.75 L Urine Color Urine Appearance Urine pH Ur Specific [place] Urine Protein Urine Glucose (UA) Urine Ketones Urine Blood Urine Nitrite Ur Leukocyte Esterase Urine WBC (Auto) Urine RBC (Auto) 11/26/16 11/27/16 11/27/16 21:35 01:23 06:05 Troponin I 0.015 0.015 0.012 Impressions: Chest X-Ray 11/26/16 16:55 IMPRESSION: CARDIAC ENLARGEMENT. STABLE DEGREE OF PULMONARY EDEMA WITH RIGHT PLEURAL EFFUSION Assessment & Plan - Diagnosis (1) Atrial fibrillation with rapid ventricular response Is this a current diagnosis for this admission?: YesPlan: as per cardiology. Rate better with current meds of IV cardizem/Amiodarone. (2) Dyspnea Qualifiers: Dyspnea type: shortness of breath Qualified Code(s): R06.02 - Shortness of breath Is this a current diagnosis for this admission?: Yes (3) ESRD (end stage renal disease) on dialysis Is this a current diagnosis for this admission?: YesPlan: ptn undergoing HD. Hold back on Cardizem to allow HD.Orders discussed with event marketing assistant Kathia.Plan to remove 1 L as tolerated. (4) Anemia Is this a current diagnosis for this admission?: YesPlan: adjust EPO. 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
[2016-11-27] MEDS: DILTIAZEM HCL 120 MG CAP.SR.24H PO SCH (17:07)
--- NOTE | 2016-11-27 18:18 | PDOC PROGRESS REPORT ---
Subjective Progress Note for:: 11/27/16 Subjective:: Nursing reports that only 300 mL fluid removed with hemodialysis today secondary to hypotension. Patient was having nausea this morning as well. She has no chest pain. She denies fevers, chills, abdominal pain. Physical Exam Vital Signs: Temp Pulse Resp BP Pulse Ox 97.8 F 99 24 H 99/71 L 97 11/27/16 16:00 11/27/16 16:00 11/27/16 16:21 11/27/16 16:21 11/27/16 16:21 Intake & Output 11/26/16 11/27/16 11/28/16 06:59 06:59 06:59 Intake Total 414 Output Total 0 300 Balance 0 114 Weight 74.5 kg GENERAL: No acute distress, ill appearing HEENT: Conjunctiva clear, nonicteric, moist mucous membranes, no JVD, midline trachea RESPIRATORY: Clear to auscultation bilaterally, no wheezes, no rhonchi CARDIAC: Irregular, tachycardic, mechanical click ABDOMEN: Soft, nondistended, nontender, positive bowel sounds, no rebound, no guarding EXTREMETIES: No edema, cyanosis, clubbing NEUROLOGIC: Alert, oriented to person/place/time, CN's grossly intact, no focal deficits SKIN: No rash, wounds PSYCH: Normal mood, normal affect Results Laboratory Results: 11/27/16 06:05 11/27/16 06:05 11/27/16 11/27/16 11/27/16 02:40 06:05 06:05 WBC 4.9 RBC 2.92 L Hgb 9.4 L Hct 28.3 L MCV 97 MCH 32.2 MCHC 33.3 RDW 19.7 H Plt Count 148 L Seg Neutrophils % 77.6 Lymphocytes % 11.7 L Monocytes % 9.5 Eosinophils % 0.3 Basophils % 0.9 Absolute Neutrophils 3.8 Absolute Lymphocytes 0.6 Absolute Monocytes 0.5 Absolute Eosinophils 0.0 Absolute Basophils 0.0 Sodium 142.6 Potassium 5.0 Chloride 102 Carbon Dioxide 27 Anion Gap 14 BUN 35 H Creatinine 2.52 H Est GFR ( Amer) 22 L Est GFR (Non-Af Amer) 19 L Glucose 136 H Calcium 8.8 TSH Free T4 Free T3 pg/mL Urine Color PANDA Urine Appearance CLOUDY Urine pH 5.0 Ur Specific [place] 1.021 Urine Protein 100 H Urine Glucose (UA) NEGATIVE Urine Ketones NEGATIVE Urine Blood NEGATIVE Urine Nitrite NEGATIVE Ur Leukocyte Esterase SMALL H Urine WBC (Auto) 25 Urine RBC (Auto) 5 11/27/16 06:05 WBC RBC Hgb Hct MCV MCH MCHC RDW Plt Count Seg Neutrophils % Lymphocytes % Monocytes % Eosinophils % Basophils % Absolute Neutrophils Absolute Lymphocytes Absolute Monocytes Absolute Eosinophils Absolute Basophils Sodium Potassium Chloride Carbon Dioxide Anion Gap BUN Creatinine Est GFR ( Amer) Est GFR (Non-Af Amer) Glucose Calcium TSH 2.32 Free T4 1.36 Free T3 pg/mL 2.75 L Urine Color Urine Appearance Urine pH Ur Specific [place] Urine Protein Urine Glucose (UA) Urine Ketones Urine Blood Urine Nitrite Ur Leukocyte Esterase Urine WBC (Auto) Urine RBC (Auto) 11/26/16 11/27/16 11/27/16 21:35 01:23 06:05 Troponin I 0.015 0.015 0.012 Impressions: Chest X-Ray 11/26/16 16:55 IMPRESSION: CARDIAC ENLARGEMENT. STABLE DEGREE OF PULMONARY EDEMA WITH RIGHT PLEURAL EFFUSION Assessment & Plan - Diagnosis (1) Congestive heart failure Qualifiers: Congestive heart failure type: systolic Congestive heart failure chronicity: acute on chronic Qualified Code(s): I50.23 - Acute on chronic systolic (congestive) heart failure Is this a current diagnosis for this admission?: YesPlan: Patient has acutely decompensated congestive heart failure is multifactorial nature to include EF 40-45%, severe tricuspid regurgitation, severe pulmonary hypertension. Fluid balance is complicated by end-stage renal disease on hemodialysis. Continue Toprol-XL. Cardiology following. (2) Atrial fibrillation with rapid ventricular response Is this a current diagnosis for this admission?: YesPlan: Dr. Martines of cardiology managing. Patient currently on Cardizem drip, amiodarone drip. Patient has also been started on oral Cardizem and is receiving oral metoprolol. We will need to use caution when titrating these medications as patient was to hypotensive today to allow for adequate fluid removal. I have discussed the case with Dr. Martines of cardiology and he has mentioned that if heart rate cannot be controlled medically patient may need consideration for EP evaluation for ablation and pacemaker placement. Continue Coumadin 10 mg nightly (increased from 7.5 mg nightly prior to admission) for goal INR 2.5-3.5. (3) ESRD (end stage renal disease) on dialysis Is this a current diagnosis for this admission?: YesPlan: Managed by Dr. Nelson of nephrology. (4) RBBB Is this a current diagnosis for this admission?: Yes (5) Anemia Is this a current diagnosis for this admission?: YesPlan: Receiving erythropoietin per nephrology. 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 (7) H/O prosthetic aortic valve replacement Is this a current diagnosis for this admission?: YesPlan: Continue Coumadin 10 mg nightly (increased from 7.5 mg nightly prior to admission) for goal INR 2.5-3.5. (8) H/O prosthetic mitral valve Is this a current diagnosis for this admission?: Yes - Time Time Spent with patient: 35 or more minutes
[2016-11-27] MEDS: WARFARIN SODIUM 5 MG TABLET PO SCH (21:08)
[2016-11-27] MEDS: ATORVASTATIN CALCIUM 80 MG TABLET PO SCH (21:09)
[2016-11-28 04:08] LABS: ABSOLUTE EOSINOPHILS # (AUTO) 0.1 10^3/uL (0.0-0.6); ABSOLUTE LYMPHOCYTES (AUTO) 0.4 10^3/uL (0.5-4.7); ABSOLUTE MONOCYTES (AUTO) 0.8 10^3/uL (0.1-1.4); ABSOLUTE NEUT (AUTO) 4.1 10^3/uL (1.7-8.2); BASOPHILS % (AUTO) 0.8 % (0-2); EOSINOPHILS % (AUTO) 1.4 % (0-6); HEMATOCRIT 30.4 % (36.0-47.0); HEMOGLOBIN 9.9 g/dL (12.0-15.5); HGB HCT DIFFERENCE -0.7; LYMPHOCYTES % (AUTO) 7.8 % (13-45); MEAN CORPUSCULAR HEMOGLOBIN 31.7 pg (27.0-33.4); MEAN CORPUSCULAR HGB CONC 32.5 g/dL (32.0-36.0); MEAN CORPUSCULAR VOLUME 98 fl (80-97); MONOCYTES % (AUTO) 14.3 % (3-13); RED BLOOD COUNT 3.11 10^6/uL (3.72-5.28); RED CELL DISTRIBUTION WIDTH 19.6 % (11.5-14.0); SEGMENTED NEUTROPHILS % (AUTO) 75.7 % (42-78); WHITE BLOOD COUNT 5.4 10^3/uL (4.0-10.5)
[2016-11-28 04:16] LABS: PROTHROMBIN TIME 26.2 SEC (11.4-15.4)
[2016-11-28 04:25] LABS: ANION GAP 11 (5-19); BLOOD UREA NITROGEN 23 mg/dL (7-20); CALCIUM 8.6 mg/dL (8.4-10.2); CARBON DIOXIDE 31 mmol/L (22-30); CHLORIDE 100 mmol/L (98-107); CREATININE RESULT 2.81 mg/dL (0.52-1.25); GLUCOSE 101 mg/dL (75-110); POTASSIUM 4.5 mmol/L (3.6-5.0); SODIUM 142.4 mmol/L (137-145)
[2016-11-28] MEDS: ACETAMINOPHEN 325 MG TABLET PO PRN ×2 (04:33→09:54)
[2016-11-28] MEDS: METOPROLOL SUCCINATE 25 MG TAB.SR.24H PO SCH ×2 (05:28→18:26)
[2016-11-28] MEDS: DILTIAZEM HCL 120 MG CAP.SR.24H PO SCH ×2 (05:29→18:23)
[2016-11-28] MEDS: LEVALBUTEROL HCL NEB 1.25 MG/3 ML AMPUL NEB PRN ×3 (08:18→19:52)
--- NOTE | 2016-11-28 08:36 | PDOC PROGRESS REPORT ---
Subjective Progress Note for:: 11/28/16 Subjective:: Patient's heart rate is under control today. Cardizem drip is off. Amiodarone drip is off. Patient is on oral Cardizem and metoprolol. She denies chest pain or shortness of breath at this time. Physical Exam Vital Signs: Temp Pulse Resp BP Pulse Ox 97.5 F 76 20 101/69 92 11/28/16 07:54 11/28/16 08:18 11/28/16 08:18 11/28/16 07:54 11/28/16 08:18 Intake & Output 11/27/16 11/28/16 11/29/16 06:59 06:59 06:59 Intake Total 877 177 Output Total 0 300 Balance 0 577 177 Weight 74.5 kg 74.5 kg GENERAL: No acute distress, ill appearing HEENT: Conjunctiva clear, nonicteric, moist mucous membranes, no JVD, midline trachea RESPIRATORY: Clear to auscultation bilaterally, no wheezes, no rhonchi CARDIAC: Irregular rhythm, normal rate, mechanical click ABDOMEN: Soft, nondistended, nontender, positive bowel sounds, no rebound, no guarding EXTREMETIES: No edema, cyanosis, clubbing NEUROLOGIC: Alert, oriented to person/place/time, CN's grossly intact, no focal deficits SKIN: No rash, wounds PSYCH: Normal mood, normal affect Results Laboratory Results: 11/28/16 03:50 11/28/16 03:50 11/28/16 11/28/16 03:50 03:50 WBC 5.4 RBC 3.11 L Hgb 9.9 L Hct 30.4 L MCV 98 H MCH 31.7 MCHC 32.5 RDW 19.6 H Plt Count 153 Seg Neutrophils % 75.7 Lymphocytes % 7.8 L Monocytes % 14.3 H Eosinophils % 1.4 Basophils % 0.8 Absolute Neutrophils 4.1 Absolute Lymphocytes 0.4 L Absolute Monocytes 0.8 Absolute Eosinophils 0.1 Absolute Basophils 0.0 Sodium 142.4 Potassium 4.5 Chloride 100 Carbon Dioxide 31 H Anion Gap 11 BUN 23 H Creatinine 2.81 H Est GFR ( Amer) 20 L Est GFR (Non-Af Amer) 16 L Glucose 101 Calcium 8.6 11/26/16 11/27/16 11/27/16 21:35 01:23 06:05 Troponin I 0.015 0.015 0.012 Impressions: Chest X-Ray 11/26/16 16:55 IMPRESSION: CARDIAC ENLARGEMENT. STABLE DEGREE OF PULMONARY EDEMA WITH RIGHT PLEURAL EFFUSION Assessment & Plan - Diagnosis (1) Atrial fibrillation with rapid ventricular response Is this a current diagnosis for this admission?: YesPlan: Heart rate is now controlled on Cardizem CD 120 mg twice daily and metoprolol 12.5 mg twice daily. Discussion has been held with patient and her family regarding potential transfer for EP evaluation. Case was discussed with Dr. Geovani Posada of electrophysiology at [facility] by Dr. Martines. At this point patient's family is not in favor of transfer. For medication management first. They state that if medical management does not work and patient needs EP evaluation they would prefer that she go to [facility] as that is where she has had her cardiac surgeries in the past. They state that she has been followed as an outpatient by Dr. Unger of cardiology locally but they have had issues following up with him as they state they were told he has been sick. (2) Congestive heart failure Qualifiers: Congestive heart failure type: systolic Congestive heart failure chronicity: acute on chronic Qualified Code(s): I50.23 - Acute on chronic systolic (congestive) heart failure Is this a current diagnosis for this admission?: YesPlan: Patient has acutely decompensated congestive heart failure is multifactorial nature to include EF 40-45%, severe tricuspid regurgitation, severe pulmonary hypertension. Fluid balance is complicated by end-stage renal disease on hemodialysis. Continue Toprol-XL. Cardiology following. (3) ESRD (end stage renal disease) on dialysis Is this a current diagnosis for this admission?: YesPlan: Managed by Dr. Nelson of nephrology. (4) RBBB Is this a current diagnosis for this admission?: Yes (5) Anemia Is this a current diagnosis for this admission?: YesPlan: Receiving erythropoietin per nephrology. 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 (7) H/O prosthetic aortic valve replacement Is this a current diagnosis for this admission?: YesPlan: Continue Coumadin 10 mg nightly (increased from 7.5 mg nightly prior to admission) for goal INR 2.5-3.5. (8) H/O prosthetic mitral valve Is this a current diagnosis for this admission?: Yes - Time Time Spent with patient: 35 or more minutes Anticipated discharge: Home
[2016-11-28] MEDS: LANSOPRAZOLE 30 MG TAB.RAP.DR PO SCH (09:53)
--- NOTE | 2016-11-28 11:16 | PDOC PROGRESS REPORT ---
Subjective Progress Note for:: 11/28/16 Subjective:: She is doing better than what she was yesterday. Her rapid A. fib is under better control. She denies any history of chest pain shortness of breath. She still feels weak. Physical Exam Vital Signs: Temp Pulse Resp BP Pulse Ox 97.5 F 89 23 H 101/46 L 89 L 11/28/16 07:54 11/28/16 08:30 11/28/16 10:00 11/28/16 09:37 11/28/16 10:00 Intake & Output 11/27/16 11/28/16 11/29/16 06:59 06:59 06:59 Intake Total 877 177 Output Total 0 300 100 Balance 0 577 77 Weight 74.5 kg 74.5 kg General appearance: PRESENT: no acute distress Respiratory exam: PRESENT: clear to auscultation kee, symmetrical. ABSENT: crackles, rales, tachypnea Cardiovascular exam: PRESENT: +S1, +S2, systolic murmur GI/Abdominal exam: PRESENT: normal bowel sounds, soft. ABSENT: distended, firm , organomegaly, tenderness Extremities exam: ABSENT: pedal edema Skin exam: PRESENT: dry. ABSENT: erythema, mottled, rash Results Laboratory Results: 11/28/16 03:50 11/28/16 03:50 11/28/16 11/28/16 03:50 03:50 WBC 5.4 RBC 3.11 L Hgb 9.9 L Hct 30.4 L MCV 98 H MCH 31.7 MCHC 32.5 RDW 19.6 H Plt Count 153 Seg Neutrophils % 75.7 Lymphocytes % 7.8 L Monocytes % 14.3 H Eosinophils % 1.4 Basophils % 0.8 Absolute Neutrophils 4.1 Absolute Lymphocytes 0.4 L Absolute Monocytes 0.8 Absolute Eosinophils 0.1 Absolute Basophils 0.0 Sodium 142.4 Potassium 4.5 Chloride 100 Carbon Dioxide 31 H Anion Gap 11 BUN 23 H Creatinine 2.81 H Est GFR ( Amer) 20 L Est GFR (Non-Af Amer) 16 L Glucose 101 Calcium 8.6 11/26/16 11/27/16 11/27/16 21:35 01:23 06:05 Troponin I 0.015 0.015 0.012 Impressions: Chest X-Ray 11/26/16 16:55 IMPRESSION: CARDIAC ENLARGEMENT. STABLE DEGREE OF PULMONARY EDEMA WITH RIGHT PLEURAL EFFUSION Assessment & Plan - Diagnosis (1) Atrial fibrillation with rapid ventricular response Is this a current diagnosis for this admission?: YesPlan: Much better rate control at the moment. However she still in A. fib. (2) Dyspnea Qualifiers: Dyspnea type: shortness of breath Qualified Code(s): R06.02 - Shortness of breath Is this a current diagnosis for this admission?: Yes (3) ESRD (end stage renal disease) on dialysis Is this a current diagnosis for this admission?: YesPlan: Orders are being placed for dialysis in the morning. (4) Anemia Is this a current diagnosis for this admission?: YesPlan: adjust EPO. (5) Diabetes mellitus, type 2 Qualifiers: Diabetes mellitus complication status: with kidney complications Diabetes mellitus complication detail: with chronic kidney disease Diabetes mellitus fdc insulin use: unspecified fdc insulin use status Chronic kidney disease stage: on chronic dialysis Qualified Code(s): E11.22 - Type 2 diabetes mellitus with diabetic chronic kidney disease; N18.1 - Chronic kidney disease, stage 1; Z79.4 - residential (current) use of insulin Is this a current diagnosis for this admission?: Yes (6) Systolic heart failure Plan: Improved. Monitor.
[2016-11-28] MEDS ORDERED: MORPHINE SULFATE 10 MG/ML INJ IV PRN (15:14)
--- NOTE | 2016-11-28 15:29 | Physician Advisory Note ---
Physician Advisor ProgressNote .: Pursuant to the plan for [facility], I have reviewed the medical record for this patient. Physician Advisor Statement: Please document: 1. "Anemia of Chronic Kidney Dz" [need type chr dz] 2. If any increased work of breathing w/the hypoxemia, please document that & can consider dx of "Ac Hypoxemic REsp Failure" Thank! CK
[2016-11-28] MEDS: MAG HYDROX/AL HYDROX/SIMETH SUSP 30 ML UDCUP PO PRN (15:37)
[2016-11-28] MEDS: WARFARIN SODIUM 5 MG TABLET PO SCH (21:11)
[2016-11-28] MEDS: ATORVASTATIN CALCIUM 80 MG TABLET PO SCH (21:11)
[2016-11-28] MEDS: LORAZEPAM 1 MG TABLET PO PRN (21:12)
--- NOTE | 2016-11-28 21:12 | PDOC PROGRESS REPORT ---
Subjective Progress Note for:: 11/28/16 Subjective:: Patient seems to be doing better with some improvement. Patient declined transfer to tertiary care for ablation. Pt is denying any chest arm or neck discomfort. Patient denying any PND, orthopnea. Patient denied any sustained palpitations, dizziness, syncope, near syncope. Patient denying any fever chills. Patient denying any other significant discomfort. Patient is maintaining chronic atrial fibrillation. Currently off amiodarone drip. Being maintained on Cardizem and beta val. Review of systems: Rest review of systems negative. Medications: Medications have been reviewed. Physical Exam Vital Signs: Temp Pulse Resp BP Pulse Ox 98.2 F 91 23 H 119/94 H 95 11/28/16 12:00 11/28/16 13:12 11/28/16 13:12 11/28/16 12:00 11/28/16 13:12 Intake & Output 11/27/16 11/28/16 11/29/16 06:59 06:59 06:59 Intake Total 877 414 Output Total 0 300 100 Balance 0 577 314 Weight 74.5 kg 74.5 kg Exam: GENERAL: well-nourished and in no acute distress. Alert and oriented x3 HEAD: Atraumatic, normocephalic. EYES: Pupils equal round and reactive to light, extraocular movements intact, sclera anicteric, conjunctiva are normal. ENT: TMs normal, nares patent, oropharynx clear without exudates. Moist mucous membranes. No oral ulcerations or bleeding gums noted NECK: supple without lymphadenopathy. Trachea is central. No cervical or axillary lymphadenopathy noted. Carotids are 2+, JVD 10 CM LUNGS: Respiration seems nonlabored, few bibasilar crackles and mild wheezes rales or rhonchi noted. No significant dullness noted on percussion. CHEST: Palpation of the chest wall shows no significant chest wall tenderness. No other significant abnormalities noted. HEART: [place] HIDE SALTER, No PSH, 2/6 MICHEAL aortic area, 1/6 camacho systolic murmur mitral area , no rubs, no gallops. Prosthetic valve sounds are noted to be crisp ABDOMEN: Soft, no significant tenderness appreciated, normoactive bowel sounds. No guarding, no rebound. No rigidity noted . No masses appreciated. EXTREMITIES: Pedal pulses are 1-2+, no calf tenderness noted. No clubbing or cyanosis.trace to 1+ pedal edema noted NEUROLOGICAL: Focused neurological exam showed no significant neurologic deficit. Normal speech, no focal weakness appreciated. PSYCH: Normal mood, normal affect. Judgment and insight within normal limits. SKIN: No significant ecchymosis, rash, ulcerations or signs of pruritus noted. MUSCULOSKELETAL EXAM: No significant joint swelling noted. Results Laboratory Results: 11/28/16 03:50 11/28/16 03:50 11/28/16 11/28/16 03:50 03:50 WBC 5.4 RBC 3.11 L Hgb 9.9 L Hct 30.4 L MCV 98 H MCH 31.7 MCHC 32.5 RDW 19.6 H Plt Count 153 Seg Neutrophils % 75.7 Lymphocytes % 7.8 L Monocytes % 14.3 H Eosinophils % 1.4 Basophils % 0.8 Absolute Neutrophils 4.1 Absolute Lymphocytes 0.4 L Absolute Monocytes 0.8 Absolute Eosinophils 0.1 Absolute Basophils 0.0 Sodium 142.4 Potassium 4.5 Chloride 100 Carbon Dioxide 31 H Anion Gap 11 BUN 23 H Creatinine 2.81 H Est GFR ( Amer) 20 L Est GFR (Non-Af Amer) 16 L Glucose 101 Calcium 8.6 11/26/16 11/27/16 11/27/16 21:35 01:23 06:05 Troponin I 0.015 0.015 0.012 Impressions: Chest X-Ray 11/26/16 16:55 IMPRESSION: CARDIAC ENLARGEMENT. STABLE DEGREE OF PULMONARY EDEMA WITH RIGHT PLEURAL EFFUSION Assessment & Plan - Diagnosis (1) Atrial fibrillation with rapid ventricular response Is this a current diagnosis for this admission?: Yes (2) Congestive heart failure Qualifiers: Congestive heart failure type: systolic Congestive heart failure chronicity: acute on chronic Qualified Code(s): I50.23 - Acute on chronic systolic (congestive) heart failure Is this a current diagnosis for this admission?: Yes (3) Dyspnea Qualifiers: Dyspnea type: shortness of breath Qualified Code(s): R06.02 - Shortness of breath Is this a current diagnosis for this admission?: Yes (4) ESRD (end stage renal disease) on dialysis Is this a current diagnosis for this admission?: Yes (5) H/O prosthetic mitral valve Is this a current diagnosis for this admission?: Yes - Notes Notes: Atrial fibrillation with rapid ventricular response: Currently off amiodarone drip. Patient on Cardizem and beta val. These doses will be gradually escalated. Patient today declined to be transferred to tertiary care for consideration of ablation therapy. Congestive heart failure: Patient seems volume overloaded but better than yesterday. Patient to have dialysis with fluid removal today. Dyspnea: Patient still dyspneic. Patient on oxygen supplementation via nasal cannula End-stage renal disease on dialysis: Patient to get dialysis today. Recommend removal of fluid on dialysis. 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 Patient currently subtherapeutic. Hospitalist managing this. Patient is critically ill and has numerous severe comorbid diagnosis. Will continue to follow patient. - Time Time with patient: 15-25 minutes - CODE STATUS was discussed, patient remains full code. Surrogate decision-maker not identified. Multiple medical problems were addressed. More than 50% of the time spent coordinating care, discussing management plans with involved caregivers. Management plans discussed with involved personnels. Medical decision making was of moderate to high complexity , patient's has multiple severe comorbidities. Medications reviewed and adjusted accordingly: Yes
[2016-11-29 04:03] LABS: ABSOLUTE EOSINOPHILS # (AUTO) 0.1 10^3/uL (0.0-0.6); ABSOLUTE LYMPHOCYTES (AUTO) 0.4 10^3/uL (0.5-4.7); ABSOLUTE MONOCYTES (AUTO) 0.7 10^3/uL (0.1-1.4); ABSOLUTE NEUT (AUTO) 4.3 10^3/uL (1.7-8.2); BASOPHILS % (AUTO) 0.4 % (0-2); EOSINOPHILS % (AUTO) 1.7 % (0-6); HEMATOCRIT 31.3 % (36.0-47.0); HGB HCT DIFFERENCE -1.3; LYMPHOCYTES % (AUTO) 7.4 % (13-45); MEAN CORPUSCULAR HEMOGLOBIN 31.6 pg (27.0-33.4); MEAN CORPUSCULAR HGB CONC 31.8 g/dL (32.0-36.0); MEAN CORPUSCULAR VOLUME 99 fl (80-97); RED BLOOD COUNT 3.15 10^6/uL (3.72-5.28); SEGMENTED NEUTROPHILS % (AUTO) 77.5 % (42-78); WHITE BLOOD COUNT 5.6 10^3/uL (4.0-10.5)
[2016-11-29 04:15] LABS: ANION GAP 12 (5-19); BLOOD UREA NITROGEN 32 mg/dL (7-20); CALCIUM 8.7 mg/dL (8.4-10.2); CARBON DIOXIDE 30 mmol/L (22-30); CHLORIDE 99 mmol/L (98-107); CREATININE RESULT 4.02 mg/dL (0.52-1.25); GLUCOSE 133 mg/dL (75-110); POTASSIUM 4.6 mmol/L (3.6-5.0); SODIUM 140.9 mmol/L (137-145)
[2016-11-29 04:20] LABS: PROTHROMBIN TIME 32.2 SEC (11.4-15.4)
[2016-11-29] MEDS: METOPROLOL SUCCINATE 25 MG TAB.SR.24H PO SCH ×2 (05:38→18:09)
[2016-11-29] MEDS: DILTIAZEM HCL 120 MG CAP.SR.24H PO SCH (05:38)
[2016-11-29] MEDS: ACETAMINOPHEN 325 MG TABLET PO PRN (06:42)
--- NOTE | 2016-11-29 08:19 | EKG REPORT ---
SEVERITY:- ABNORMAL ECG - ATRIAL FIBRILLATION RIGHT BUNDLE BRANCH BLOCK LVH WITH SECONDARY REPOLARIZATION ABNORMALITY INFERIOR INFARCT, AGE INDETERMINATE : Confirmed by: Michael Foster MD 29-Nov-2016 08:18:43
--- NOTE | 2016-11-29 10:13 | PDOC PROGRESS REPORT ---
Subjective Progress Note for:: 11/29/16 Subjective:: She was seen in the ICU on HD today. Her BP dropped at the start of HD and she had to be primed with saline which then brought it up to 100- 110 systolic and HD is currently going well without ant other issues.Orders were discussed with the waxed bag machine operator and plan is not to any ultra filtration as she is clinically dehydrated . Physical Exam Vital Signs: Temp Pulse Resp BP Pulse Ox 97.7 F 93 23 H 123/105 H 100 11/29/16 07:54 11/29/16 07:54 11/29/16 09:42 11/29/16 09:42 11/29/16 09:42 Intake & Output 11/28/16 11/29/16 11/30/16 06:59 06:59 06:59 Intake Total 877 644 Output Total 300 150 0 Balance 577 494 0 Weight 74.5 kg 72.5 kg General appearance: PRESENT: no acute distress Respiratory exam: PRESENT: clear to auscultation kee. ABSENT: crackles, rhonchi Cardiovascular exam: PRESENT: +S1, +S2, systolic murmur GI/Abdominal exam: PRESENT: normal bowel sounds, soft. ABSENT: distended, firm , organomegaly, tenderness Extremities exam: ABSENT: pedal edema Neurological exam: PRESENT: awake, oriented to person, oriented to place Skin exam: PRESENT: dry. ABSENT: erythema, mottled, rash Results Laboratory Results: 11/29/16 03:44 11/29/16 03:44 11/29/16 11/29/16 03:44 03:44 WBC 5.6 RBC 3.15 L Hgb 10.0 L Hct 31.3 L MCV 99 H MCH 31.6 MCHC 31.8 L RDW 20.0 H Plt Count 164 Seg Neutrophils % 77.5 Lymphocytes % 7.4 L Monocytes % 13.0 Eosinophils % 1.7 Basophils % 0.4 Absolute Neutrophils 4.3 Absolute Lymphocytes 0.4 L Absolute Monocytes 0.7 Absolute Eosinophils 0.1 Absolute Basophils 0.0 Sodium 140.9 Potassium 4.6 Chloride 99 Carbon Dioxide 30 Anion Gap 12 BUN 32 H Creatinine 4.02 H Est GFR ( Amer) 13 L Est GFR (Non-Af Amer) 11 L Glucose 133 H Calcium 8.7 05/02/17 05/03/17 05/03/17 21:35 01:23 06:05 Troponin I 0.015 0.015 0.012 Impressions: Chest X-Ray 11/26/16 16:55 IMPRESSION: CARDIAC ENLARGEMENT. STABLE DEGREE OF PULMONARY EDEMA WITH RIGHT PLEURAL EFFUSION Lung Scan-VQ NM 11/28/16 00:00 IMPRESSION: No perfusion defects worrisome for acute pulmonary emboli. Right hemithorax volume loss with fluid in the major fissure Assessment & Plan - Diagnosis (1) Atrial fibrillation with rapid ventricular response Is this a current diagnosis for this admission?: YesPlan: Much better rate control at the moment. However she still in A. fib. (2) Dyspnea Qualifiers: Dyspnea type: shortness of breath Qualified Code(s): R06.02 - Shortness of breath Is this a current diagnosis for this admission?: Yes (3) ESRD (end stage renal disease) on dialysis Is this a current diagnosis for this admission?: YesPlan: She is undergoing HD as mentioned in the beginning . But for the initial drop in the BP she is doing well. (4) Anemia Qualifiers: Other causes of anemia: chronic disease, kidney Is this a current diagnosis for this admission?: YesPlan: adjust EPO. 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 Monitor.
[2016-11-29] MEDS: LANSOPRAZOLE 30 MG TAB.RAP.DR PO SCH (11:42)
[2016-11-29] MEDS: AMIODARONE HCL 200 MG TABLET PO SCH ×2 (11:43→21:32)
[2016-11-29] MEDS ORDERED: EPOETIN ALFA 5,000 UNIT in SYRINGE, DISPOSABLE, 1 EACH IV ONE (12:00)
--- NOTE | 2016-11-29 17:45 | PDOC PROGRESS REPORT ---
Subjective Progress Note for:: 11/29/16 Subjective:: Nursing reports the patient blood pressures been low they have had to hold Cardizem and metoprolol as result. Patient has also been difficult to dialyze secondary to low blood pressures. Patient denies fever, chills, headache, new focal weakness, chest pain, shortness of breath, abdominal pain, nausea, vomiting, diarrhea, constipation. Physical Exam Vital Signs: Temp Pulse Resp BP Pulse Ox 98 F 94 20 107/70 92 11/29/16 12:00 11/29/16 12:00 11/29/16 12:00 11/29/16 12:00 11/29/16 12:00 Intake & Output 11/28/16 11/29/16 11/30/16 06:59 06:59 06:59 Intake Total 877 644 500 Output Total 300 150 0 Balance 577 494 500 Weight 74.5 kg 72.5 kg GENERAL: No acute distress, ill appearing HEENT: Conjunctiva clear, nonicteric, moist mucous membranes, no JVD, midline trachea RESPIRATORY: Clear to auscultation bilaterally, no wheezes, no rhonchi CARDIAC: Irregular rhythm, normal rate, mechanical click ABDOMEN: Soft, nondistended, nontender, positive bowel sounds, no rebound, no guarding EXTREMETIES: No edema, cyanosis, clubbing NEUROLOGIC: Alert, oriented to person/place/time, CN's grossly intact, no focal deficits SKIN: No rash, wounds PSYCH: Normal mood, normal affect Results Laboratory Results: 11/29/16 03:44 11/29/16 03:44 11/29/16 11/29/16 03:44 03:44 WBC 5.6 RBC 3.15 L Hgb 10.0 L Hct 31.3 L MCV 99 H MCH 31.6 MCHC 31.8 L RDW 20.0 H Plt Count 164 Seg Neutrophils % 77.5 Lymphocytes % 7.4 L Monocytes % 13.0 Eosinophils % 1.7 Basophils % 0.4 Absolute Neutrophils 4.3 Absolute Lymphocytes 0.4 L Absolute Monocytes 0.7 Absolute Eosinophils 0.1 Absolute Basophils 0.0 Sodium 140.9 Potassium 4.6 Chloride 99 Carbon Dioxide 30 Anion Gap 12 BUN 32 H Creatinine 4.02 H Est GFR ( Amer) 13 L Est GFR (Non-Af Amer) 11 L Glucose 133 H Calcium 8.7 11/26/16 11/27/16 11/27/16 21:35 01:23 06:05 Troponin I 0.015 0.015 0.012 Impressions: Chest X-Ray 11/26/16 16:55 IMPRESSION: CARDIAC ENLARGEMENT. STABLE DEGREE OF PULMONARY EDEMA WITH RIGHT PLEURAL EFFUSION Lung Scan-VQ NM 11/28/16 00:00 IMPRESSION: No perfusion defects worrisome for acute pulmonary emboli. Right hemithorax volume loss with fluid in the major fissure Assessment & Plan - Diagnosis (1) Atrial fibrillation with rapid ventricular response Is this a current diagnosis for this admission?: YesPlan: Discontinue Cardizem secondary to hypotension. Continue metoprolol 12.5 mg twice daily. Start amiodarone 200 mg twice daily. Discussion has been held with patient and her family regarding potential transfer for EP evaluation. Case was discussed with Dr. Geovani Posada of electrophysiology at [facility] by Dr. Martines. At this point patient's family is not in favor of transfer. For medication management first. They state that if medical management does not work and patient needs EP evaluation they would prefer that she go to [facility] as that is where she has had her cardiac surgeries in the past. They state that she has been followed as an outpatient by Dr. Unger of cardiology locally but they have had issues following up with him as they state they were told he has been sick. (2) Congestive heart failure Qualifiers: Congestive heart failure type: systolic Congestive heart failure chronicity: acute on chronic Qualified Code(s): I50.23 - Acute on chronic systolic (congestive) heart failure Is this a current diagnosis for this admission?: YesPlan: Patient has acutely decompensated congestive heart failure is multifactorial nature to include EF 40-45%, severe tricuspid regurgitation, severe pulmonary hypertension. Fluid balance is complicated by end-stage renal disease on hemodialysis. Continue Toprol-XL. Cardiology following. (3) ESRD (end stage renal disease) on dialysis Is this a current diagnosis for this admission?: YesPlan: Managed by Dr. Nelson of nephrology. (4) RBBB Is this a current diagnosis for this admission?: Yes (5) Anemia Qualifiers: Other causes of anemia: chronic disease, kidney Is this a current diagnosis for this admission?: YesPlan: Receiving erythropoietin per nephrology. (6) Diabetes mellitus, type 2 Qualifiers: Diabetes mellitus complication status: with kidney complications Diabetes mellitus complication detail: with chronic kidney disease Diabetes mellitus intermission coordinator insulin use: unspecified intermission coordinator insulin use status Chronic kidney disease stage: on chronic dialysis Qualified Code(s): E11.22 - Type 2 diabetes mellitus with diabetic chronic kidney disease; N18.1 - Chronic kidney disease, stage 1; Z79.4 - penitentiary (current) use of insulin Is this a current diagnosis for this admission?: YesPlan: Sliding scale insulin. (7) H/O prosthetic aortic valve replacement Is this a current diagnosis for this admission?: YesPlan: Change Coumadin Coumadin 10 mg on Friday and , 7.5 mg every Friday, Friday, Friday, Friday, Friday. Goal INR 2.5-3.5. (8) H/O prosthetic mitral valve Is this a current diagnosis for this admission?: Yes - Time Time Spent with patient: 35 or more minutes
[2016-11-29] MEDS: LEVALBUTEROL HCL NEB 1.25 MG/3 ML AMPUL NEB PRN ×2 (18:11→23:46)
--- NOTE | 2016-11-29 19:29 | XCELERA REPORT ---
[address] [address] Transthoracic Echocardiogram Report Name: TAMMY BUCKLEY Age: 76 yrs Gender: Female : 1940 Patient Status: Inpatient Patient Location: ICU\S\608\S\A Study Date: 11/29/2016 02:08 PM Height: 70 in Weight: 160 lb BSA: 1.9 m2 Procedure: A complete two-dimensional transthoracic echocardiogram was performed (2D, M-mode, spectral and color flow Doppler). The study was technically difficult with many images being suboptimal in quality. Reason For Study: hypotension Ordering Physician: ANUSHA MENCHACA Performed By: Margo Miller Interpretation Summary The study was technically difficult with many images being suboptimal in quality. Left ventricular systolic function is mild to moderately reduced. The Ejection Fraction estimate is 40-45% There is mild concentric left ventricular hypertrophy. The left ventricle is grossly normal size. Doppler measurements suggest pseudonormalized left ventricular relaxation, which is associated with grade II/IV or mild to moderate diastolic dysfunction There is mild global hypokinesis of the left ventricle. The right ventricle is moderately dilated. The right ventricle appears to be hypertrophied The right ventricular systolic function is mild to moderately reduced. The right atrium is mild to moderately dilated. The left atrium is severely dilated. There is a bi-leaflet ([employer]) mechanical prosthesis. Can not comment on stenosis or regugurgitation accurately but felt not significant. There is a bi-leaflet ([employer]) aortic mechanical prosthesis. Can not comment on stenosis or regugurgitation accurately but felt not significant. There is a moderate to severe amount of tricuspid regurgitation There is servere pulmonary hypertension by echo Best estimated RVSP is approximately 70-80 mm/Hg. There is no pericardial effusion. MMode/2D Measurements \T\ Calculations RVDd: 3.1 cm LVIDd: 4.9 cmFS: 18.5 % Ao root diam: 2.5 cm IVSd: 1.1 cm LVIDs: 4.0 cmEDV(Teich): 110.3 ml LVPWd: 1.0 cmESV(Teich): 68.2 ml Ao root area: 4.8 cm2 EF(Teich): 38.2 % LA dimension: 5.5 cm LVOT diam: 1.8 cm LVOT area: 2.5 cm2 Doppler Measurements \T\ Calculations MV E max yvon: MV V2 max: MV P1/2t max yvon: Ao V2 max: 214.6 cm/sec 227.6 cm/sec 215.3 cm/sec 361.4 cm/sec MV max PG: MV P1/2t: 75.2 msec Ao max P.7 mmHg MVA(P1/2t): 2.9 cm2 52.3 mmHg MV V2 mean: MV dec slope: Ao V2 mean: 103.2 cm/sec 838.3 cm/sec2 255.6 cm/sec MV mean PG: Ao mean P.1 mmHg 30.5 mmHg MV V2 VTI: Ao V2 VTI: 67.5 cm 42.9 cm SUNNY(I,D): 0.50 cm2 MVA(VTI): SUNNY(V,D): 0.46 cm2 0.79 cm2 LV V1 max PG: SV(LVOT): 34.0 ml PA V2 max: PI end-d yvon: 1.8 mmHg 100.2 cm/sec 158.1 cm/sec LV V1 mean PG: PA max P.0 mmHg 1.0 mmHg LV V1 max: 67.2 cm/sec LV V1 mean: 46.1 cm/sec LV V1 VTI: 13.7 cm TR max yvon: 437.7 cm/sec TR max P.6 mmHg Left Ventricle The left ventricle is grossly normal size. There is mild concentric left ventricular hypertrophy. Left ventricular systolic function is mild to moderately reduced. The Ejection Fraction estimate is 40-45%. Doppler measurements suggest pseudonormalized left ventricular relaxation, which is associated with grade II/IV or mild to moderate diastolic dysfunction. There is mild global hypokinesis of the left ventricle. Right Ventricle The right ventricle is moderately dilated. The right ventricle appears to be hypertrophied. The right ventricular systolic function is mild to moderately reduced. Atria The right atrium is mild to moderately dilated. The left atrium is severely dilated. Interarterial septum not well visualized and not well dopplered. Cannot comment on ASD/PFO presence. Mitral Valve There is a bi-leaflet ([employer]) mechanical prosthesis. Can not comment on stenosis or regugurgitation accurately but felt not significant. Aortic Valve There is a bi-leaflet ([employer]) aortic mechanical prosthesis. Can not comment on stenosis or regugurgitation accurately but felt not significant. Tricuspid Valve The tricuspid valve is not well visualized secondary to technical limitations. There is no tricuspid stenosis. There is a moderate to severe amount of tricuspid regurgitation. There is servere pulmonary hypertension by echo. Best estimated RVSP is approximately 70-80 mm/Hg. Pulmonic Valve The pulmonic valve is not well visualized. Great Vessels The aortic root is not well visualized. The inferior vena cava appeared normal and decreased > 50% with respiration (RAP 5-10 mmHg). Effusions There is no pericardial effusion. : ANUSHA MENCHACA > Anusha Menchaca
[2016-11-29 20:51] LABS: APPEARANCE,URINE TURBID; BILIRUBIN,URINE SMALL (NEGATIVE); GLUCOSE, URINE NEGATIVE (NEGATIVE); KETONES,URINE NEGATIVE (NEGATIVE); LEUKOCYTE ESTERASE,URINE SMALL (NEGATIVE); NITRITE,URINE NEGATIVE (NEGATIVE); PROTEIN,URINE 100 mg/dL (NEGATIVE); URINE SPECIFIC GRAVITY 1.024; UROBILINOGEN,URINE NEGATIVE mg/dL (<2.0)
[2016-11-29] MEDS: ATORVASTATIN CALCIUM 80 MG TABLET PO SCH (21:31)
[2016-11-29] MEDS: WARFARIN SODIUM 7.5 MG TABLET PO SCH (21:32)
[2016-11-29] MEDS ORDERED: WARFARIN SODIUM 5 MG TABLET PO SCH (22:00)
[2016-11-29] MEDS: LORAZEPAM 1 MG TABLET PO PRN (22:33)
[2016-11-29] MEDS: MAG HYDROX/AL HYDROX/SIMETH SUSP 30 ML UDCUP PO PRN (22:34)
[2016-11-29 23:17] LABS: ARTERIAL BLOOD BASE EXCESS 6.4 mmol/L; ARTERIAL BLOOD O2 SATURATION 76.4 % (94-98)
[2016-11-30 03:23] LABS: ABSOLUTE LYMPHOCYTES (AUTO) 0.4 10^3/uL (0.5-4.7); ABSOLUTE MONOCYTES (AUTO) 0.6 10^3/uL (0.1-1.4); ABSOLUTE NEUT (AUTO) 5.4 10^3/uL (1.7-8.2); BASOPHILS % (AUTO) 0.2 % (0-2); EOSINOPHILS % (AUTO) 0.5 % (0-6); HEMATOCRIT 30.7 % (36.0-47.0); HEMOGLOBIN 9.8 g/dL (12.0-15.5); HGB HCT DIFFERENCE -1.3; LYMPHOCYTES % (AUTO) 5.6 % (13-45); MEAN CORPUSCULAR HEMOGLOBIN 31.5 pg (27.0-33.4); MEAN CORPUSCULAR VOLUME 98 fl (80-97); MONOCYTES % (AUTO) 9.6 % (3-13); RED BLOOD COUNT 3.12 10^6/uL (3.72-5.28); RED CELL DISTRIBUTION WIDTH 19.4 % (11.5-14.0); SEGMENTED NEUTROPHILS % (AUTO) 84.1 % (42-78); VENOUS BLOOD BASE EXCESS 5.3 mmol/L; VENOUS BLOOD HCO3 33.2 mmol/L (20-32); VENOUS BLOOD PH 7.33 (7.30-7.42); WHITE BLOOD COUNT 6.4 10^3/uL (4.0-10.5)
[2016-11-30 03:30] LABS: VENOUS BLOOD PCO2 65.2 mmHg (35-63)
[2016-11-30 03:31] LABS: PROTHROMBIN TIME 33.4 SEC (11.4-15.4)
[2016-11-30 03:42] LABS: ANION GAP 12 (5-19); BLOOD UREA NITROGEN 22 mg/dL (7-20); CALCIUM 8.7 mg/dL (8.4-10.2); CARBON DIOXIDE 29 mmol/L (22-30); CHLORIDE 99 mmol/L (98-107); CREATININE RESULT 3.01 mg/dL (0.52-1.25); GLUCOSE 100 mg/dL (75-110); POTASSIUM 3.9 mmol/L (3.6-5.0); SODIUM 140.3 mmol/L (137-145)
[2016-11-30] MEDS: METOPROLOL SUCCINATE 25 MG TAB.SR.24H PO SCH ×2 (05:55→19:20)
--- NOTE | 2016-11-30 08:26 | PDOC PROGRESS REPORT ---
Subjective Progress Note for:: 11/30/16 Subjective:: Patient has had shortness of breath overnight necessitating BiPAP. She denies chest pain, fever, chills. Physical Exam Vital Signs: Temp Pulse Resp BP Pulse Ox 97.7 F 94 20 105/57 L 97 11/30/16 03:46 11/30/16 03:46 11/30/16 06:00 11/30/16 05:43 11/30/16 06:00 Intake & Output 11/29/16 11/30/16 12/01/16 06:59 06:59 06:59 Intake Total 644 660 Output Total 150 30 Balance 494 630 Weight 72.5 kg 77.8 kg GENERAL: No acute distress HEENT: Conjunctiva clear, nonicteric, moist mucous membranes, no JVD, midline trachea RESPIRATORY: Crackles in bilateral anterior lung patel CARDIAC: Irregularly irregular rhythm, normal rate, mechanical click ABDOMEN: Soft, nondistended, nontender, positive bowel sounds, no rebound, no guarding EXTREMETIES: No edema, cyanosis, clubbing NEUROLOGIC: Alert, oriented to person/place/time, CN's grossly intact, no focal deficits SKIN: No rash, wounds PSYCH: Normal mood, normal affect Results Laboratory Results: 11/30/16 03:12 11/30/16 03:12 11/29/16 11/29/16 11/30/16 20:20 23:10 03:12 WBC 6.4 RBC 3.12 L Hgb 9.8 L Hct 30.7 L MCV 98 H MCH 31.5 MCHC 32.0 RDW 19.4 H Plt Count 186 Seg Neutrophils % 84.1 H Lymphocytes % 5.6 L Monocytes % 9.6 Eosinophils % 0.5 Basophils % 0.2 Absolute Neutrophils 5.4 Absolute Lymphocytes 0.4 L Absolute Monocytes 0.6 Absolute Eosinophils 0.0 Absolute Basophils 0.0 Carbonic Acid 2.08 H HCO3/H2CO3 Ratio 16:1 ABG pH 7.32 L ABG pCO2 69.0 H ABG pO2 45.9 L ABG HCO3 34.4 H ABG O2 Saturation 76.4 L ABG Base Excess 6.4 VBG pH VBG pCO2 VBG HCO3 VBG Base Excess FiO2 6L Sodium Potassium Chloride Carbon Dioxide Anion Gap BUN Creatinine Est GFR ( Amer) Est GFR (Non-Af Amer) Glucose Calcium Urine Color PANDA Urine Appearance TURBID Urine pH 5.0 Ur Specific [place] 1.024 Urine Protein 100 H Urine Glucose (UA) NEGATIVE Urine Ketones NEGATIVE Urine Blood NEGATIVE Urine Nitrite NEGATIVE Ur Leukocyte Esterase SMALL H Urine WBC (Auto) 37 Urine RBC (Auto) 12 11/30/16 11/30/16 03:12 03:12 WBC RBC Hgb Hct MCV MCH MCHC RDW Plt Count Seg Neutrophils % Lymphocytes % Monocytes % Eosinophils % Basophils % Absolute Neutrophils Absolute Lymphocytes Absolute Monocytes Absolute Eosinophils Absolute Basophils Carbonic Acid HCO3/H2CO3 Ratio ABG pH ABG pCO2 ABG pO2 ABG HCO3 ABG O2 Saturation ABG Base Excess VBG pH 7.33 VBG pCO2 65.2 H* VBG HCO3 33.2 H VBG Base Excess 5.3 FiO2 Sodium 140.3 Potassium 3.9 Chloride 99 Carbon Dioxide 29 Anion Gap 12 BUN 22 H Creatinine 3.01 H Est GFR ( Amer) 18 L Est GFR (Non-Af Amer) 15 L Glucose 100 Calcium 8.7 Urine Color Urine Appearance Urine pH Ur Specific [place] Urine Protein Urine Glucose (UA) Urine Ketones Urine Blood Urine Nitrite Ur Leukocyte Esterase Urine WBC (Auto) Urine RBC (Auto) 11/26/16 11/27/16 11/27/16 21:35 01:23 06:05 Troponin I 0.015 0.015 0.012 Impressions: Lung Scan-VQ NM 11/28/16 00:00 IMPRESSION: No perfusion defects worrisome for acute pulmonary emboli. Right hemithorax volume loss with fluid in the major fissure Chest X-Ray 11/30/16 00:00 IMPRESSION: Interval worsening. Moderate-small, opacity/ effusion of bilateral lower hemithoraces. Moderate central edema pattern. Differential diagnosis includes CHF and multifocal pneumonia. Assessment & Plan - Diagnosis (1) Atrial fibrillation with rapid ventricular response Is this a current diagnosis for this admission?: YesPlan: Discontinued Cardizem secondary to hypotension. Continue metoprolol 12.5 mg twice daily. Started amiodarone 200 mg twice daily. Discussion has been held with patient and her family regarding potential transfer for EP evaluation. Case was discussed with Dr. Geovani Posada of electrophysiology at [facility] by Dr. Martines. At this point patient's family is not in favor of transfer. For medication management first. They state that if medical management does not work and patient needs EP evaluation they would prefer that she go to [facility] as that is where she has had her cardiac surgeries in the past. Patient is normally followed by Dr. Unger of cardiology as an outpatient. (2) Congestive heart failure Qualifiers: Congestive heart failure type: systolic Congestive heart failure chronicity: acute on chronic Qualified Code(s): I50.23 - Acute on chronic systolic (congestive) heart failure Is this a current diagnosis for this admission?: YesPlan: Patient has acutely decompensated congestive heart failure is multifactorial nature to include EF 40-45%, severe tricuspid regurgitation, severe pulmonary hypertension. Fluid balance is complicated by end-stage renal disease on hemodialysis. Continue Toprol-XL. Cardiology following. We have had difficulty maintaining fluid balance with hemodialysis as it has been limited by patient's hypotension. Patient does have urine output despite ESRD so I will start IV Lasix 40 mg every [address] Adames catheter. Monitor strict I's and O's. Repeat chest x-ray in the morning. (3) ESRD (end stage renal disease) on dialysis Is this a current diagnosis for this admission?: YesPlan: Managed by Dr. Nelson of nephrology. (4) RBBB Is this a current diagnosis for this admission?: YesPlan: This is old as compared to prior EKGs. (5) Anemia Qualifiers: Other causes of anemia: chronic disease, kidney Is this a current diagnosis for this admission?: YesPlan: Receiving erythropoietin per nephrology. 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 (7) H/O prosthetic aortic valve replacement Is this a current diagnosis for this admission?: YesPlan: Changed Coumadin Coumadin 10 mg on Friday and , 7.5 mg every Friday, Friday, Friday, Friday, Friday. Goal INR 2.5-3.5. (8) H/O prosthetic mitral valve Is this a current diagnosis for this admission?: Yes - Time Time Spent with patient: 35 or more minutes
[2016-11-30] MEDS: LANSOPRAZOLE 30 MG TAB.RAP.DR PO SCH (09:42)
[2016-11-30] MEDS: AMIODARONE HCL 200 MG TABLET PO SCH (09:42)
[2016-11-30] MEDS: FUROSEMIDE INJ/PF 20 MG/2 ML SDV IV SCH ×2 (09:43→21:33)
[2016-11-30] MEDS ORDERED: DIGOXIN 0.125 MG TABLET PO SCH (11:00)
--- NOTE | 2016-11-30 14:04 | PDOC TRANSFER SUMMARY ---
General Admission Date/PCP: 11/26/16 17:45 CHRIS BENEDICT MD Admission Date: 11/26/16 Transfer Date: 11/30/16 Accepting Facility: [facility] Accepting Physician: Dr. Plasencia Resuscitation Status: Full Code - Transfer Diagnosis (1) Acute hypoxemic respiratory failure Is this a current diagnosis for this admission?: YesDiagnosis Summary: Secondary to pulmonary edema. Continue BiPAP for respiratory support. (2) Congestive heart failure Is this a current diagnosis for this admission?: YesDiagnosis Summary: Patient has acutely decompensated congestive heart failure secondary to systolic dysfunction with EF 40-45%, severe tricuspid regurgitation, severe pulmonary hypertension. This is complicated by end-stage renal disease requiring hemodialysis for fluid balance. Cardiology has been following. Patient has had worsening pulmonary edema and respiratory distress over the past 24 hours and requires emergent hemodialysis. I have discussed the case with soils technician at [facility] (Dr. Plasencia) and he agrees to accept patient in transfer to their cardiac ICU. (3) Atrial fibrillation with rapid ventricular response Is this a current diagnosis for this admission?: YesDiagnosis Summary: Patient was sent to the hospital for evaluation from outpatient dialysis center. She presented with atrial fibrillation with rapid ventricular response. Cardiology has been following patient the hospital and we have had difficulty with patient's heart rate control medications secondary to hypotension. Cardiology was reluctant to initiate amiodarone secondary to severe pulmonary hypertension. Cardiology recommended EP evaluation for consideration of ablation and pacemaker placement. Patient's hypotension has also inhibited our ability to withdraw fluid on intermittent hemodialysis. (4) ESRD (end stage renal disease) on dialysis Is this a current diagnosis for this admission?: YesDiagnosis Summary: Patient has been followed by Dr. Nelson of nephrology. She has been undergoing intermittent dialysis however we have had difficulty withdrawing significant amount of fluid secondary to hypotension. Last hemodialysis was on 11/29/2016. (5) RBBB Is this a current diagnosis for this admission?: Yes (6) Anemia Is this a current diagnosis for this admission?: Yes (7) Diabetes mellitus, type 2 Is this a current diagnosis for this admission?: Yes (8) H/O prosthetic aortic valve replacement Is this a current diagnosis for this admission?: YesDiagnosis Summary: Patient's INR was subtherapeutic at 1.5 on presentation. She was taking Coumadin 7.5 mg nightly. Coumadin was increased to 10 mg on Friday and and 7.5 mg every other day of the week. INR is now therapeutic at 3.1. (9) H/O prosthetic mitral valve Is this a current diagnosis for this admission?: Yes - Transfer Medications Home Medications: Atorvastatin Calcium [Lipitor 80 mg Tablet] 80 mg PO QHS 11/26/16 B Complex & C No.20/Folic Acid [Virt-Caps Softgel] 1 mg PO DAILY 11/26/16 Digoxin [Lanoxin 0.125 mg Tablet] 0.125 mg PO Q48H 11/26/16 Escitalopram Oxalate [Lexapro] 20 mg PO DAILY 11/26/16 Lorazepam [Ativan 1 mg Tablet] 1 mg PO BIDP PRN 11/26/16 Metoprolol Tartrate [Lopressor 25 mg Tablet] 12.5 mg PO Q12 11/26/16 Pantoprazole Sodium [Protonix] 40 mg PO DAILY 11/26/16 Spironolactone [Aldactone 25 mg Tablet] 12.5 mg PO DAILY 11/26/16 Trazodone HCl [Desyrel 50 mg Tablet] 25 mg PO QHS 11/26/16 Warfarin Sodium [Coumadin 2.5 mg Tablet] 2.5 mg PO HSP PRN 11/26/16 Warfarin Sodium [Coumadin 7.5 mg Tablet] 7.5 mg PO DAILY@1600 11/26/16 Transfer Medications: Current Medications Acetaminophen (Tylenol 325 Mg Tablet) 650 mg PO Q4HP PRN PRN Reason: FOR PAIN OR TEMP Stop: 12/26/16 17:44 Last Admin: 11/29/16 06:42 Dose: 650 mg Al Hydrox/Mg Hydrox/Simethicone (Maalox Plus Susp 30 Udcup) 30 ml PO Q6HP PRN PRN Reason: indigestion Stop: 12/28/16 15:13 Last Admin: 11/29/16 22:34 Dose: 30 ml Atorvastatin Calcium (Lipitor 80 Mg Tablet) 80 mg PO QHS MARSHA Stop: 12/26/16 21:59 Last Admin: 11/29/16 21:31 Dose: 80 mg Dextrose (Dextrose Inj 50% Syringe (25 Gm/50 Ml)) 12.5 gm IV PRN PRN; Protocol PRN Reason: FOR BG 50-69 IN ALERT PATIENT Stop: 12/26/16 17:44 Dextrose (Dextrose Inj 50% Syringe (25 Gm/50 Ml)) 25 gm IV PRN PRN PRN Reason: Protocol Stop: 12/26/16 17:44 Digoxin (Lanoxin 0.125 Mg Tablet) 0.125 mg PO Q48H MARSHA Stop: 12/30/16 10:59 Last Admin: 11/30/16 11:26 Dose: 0.125 mg Diltiazem HCl (Cardizem Inj 25 Mg/5 Ml Vial) 2.5 mg IV Q1HP PRN Stop: 12/05/16 20:28 Last Admin: 11/26/16 20:45 Dose: 2.5 mg Furosemide (Lasix Inj/Pf 20 Mg/2 Ml Sdv) 40 mg IV Q12 MARSHA Stop: 12/30/16 09:59 Last Admin: 11/30/16 09:43 Dose: 40 mg Glucagon (Glucagen Inj 1 Mg Vial) 1 mg IM PRN PRN; Protocol PRN Reason: Evaluate for BG < 70 Stop: 12/26/16 17:44 Glucose (Glutose 40% Gel 15 Gm Tube) 15 gm PO PRN PRN; Protocol PRN Reason: FOR BG 50-69 IN ALERT PATIENT Stop: 12/26/16 17:44 Glucose (Glutose 40% Gel 15 Gm Tube) 30 gm PO PRN PRN; Protocol PRN Reason: FOR BG < 50 IN ALERT PATIENT Stop: 12/26/16 17:44 Insulin Human Lispro (Humalog Insulin 100 Unit/1 Ml 3 Ml Vial) 0 - 12 unit SUBCUT ACHSP PRN PRN Reason: Protocol Stop: 12/26/16 17:44 Last Admin: 11/29/16 21:32 Dose: 2 unit Lansoprazole (Prevacid 30 Mg Odt Tablet) 30 mg PO DAILY MARSHA Stop: 12/27/16 09:59 Last Admin: 11/30/16 09:42 Dose: 30 mg Levalbuterol HCl (Xopenex Neb 1.25 Mg/3 Ml Ampul) 1.25 mg NEB RTQ6HP PRN PRN Reason: SHORTNESS OF BREATH Stop: 12/27/16 08:55 Last Admin: 11/29/16 23:46 Dose: 1.25 mg Lorazepam (Ativan 1 Mg Tablet) 1 mg PO Q8HP PRN PRN Reason: ANXIETY Stop: 12/03/16 17:51 Last Admin: 11/29/16 22:33 Dose: 1 mg Metoprolol Succinate (Toprol Xl 25 Mg Tab.Sr) 12.5 mg PO Q12A [facility] Stop: 12/27/16 17:59 Last Admin: 11/30/16 05:55 Dose: 12.5 mg Metoprolol Tartrate (Lopressor Inj/Pf 5 Mg/5 Ml Sdv) 2.5 mg IV Q1HP PRN PRN Reason: HR > 110 Stop: 12/26/16 21:15 Last Admin: 11/26/16 21:56 Dose: 2.5 mg Morphine Sulfate (Morphine 10 Mg/Ml Inj) 2 mg IV Q4HP PRN PRN Reason: FOR PAIN SCALE 3-5 Stop: 12/05/16 15:13 Last Admin: 11/28/16 15:37 Dose: 2 mg Ondansetron HCl (Zofran Inj/Pf 4 Mg/2 Ml Sdv) 4 mg IV Q8HP PRN PRN Reason: FOR NAUSEA/VOMITING Stop: 12/26/16 17:44 Last Admin: 11/27/16 08:58 Dose: 4 mg Sodium Chloride (Saline Flush 2.5 Ml Monoject Prefil Syrin) 2.5 ml IV Q8 [facility] Stop: 12/26/16 21:59 Last Admin: 11/30/16 05:56 Dose: 2.5 ml Warfarin Sodium (Coumadin 5 Mg Tablet) 10 mg PO TuTh@2200 [facility] Stop: 12/29/16 21:59 Warfarin Sodium (Coumadin 7.5 Mg Tablet) 7.5 mg PO SuMoWeFrSa@2200 [facility] Stop: 12/29/16 21:59 Last Admin: 11/29/16 21:32 Dose: 7.5 mg - Allergies Allergies/Adverse Reactions: Penicillins Allergy (Severe, Verified 11/26/16 20:18) Swelling of hands and/or feet vancomycin [Vancomycin] Adverse Reaction (Intermediate, Verified 11/26/16 20:18) Swelling of hands and/or feet hydrochlorothiazide [From Dyazide] Adverse Reaction (Verified 11/26/16 20:18) Swelling of hands and/or feet triamterene [From Dyazide] Adverse Reaction (Verified 11/26/16 20:18) Swelling of hands and/or feet Hospital Course Hospital Course: See above. Patient will be transferred to [facility] for emergent hemodialysis and EP evaluation. Physical Exam Vital Signs: Temp Pulse Resp BP Pulse Ox 98.6 F 89 23 H 134/118 H 93 11/30/16 12:00 11/30/16 12:55 11/30/16 13:00 11/30/16 11:43 11/30/16 13:00 Intake & Output 11/29/16 11/30/16 12/01/16 06:59 06:59 06:59 Intake Total 644 660 200 Output Total 150 30 130 Balance 494 630 70 Weight 72.5 kg 77.8 kg GENERAL: Resting comfortably on BiPAP HEENT: Conjunctiva clear, nonicteric, moist mucous membranes, no JVD, midline trachea RESPIRATORY: Crackles in bilateral anterior lung patel CARDIAC: Irregularly irregular rhythm, normal rate, mechanical click ABDOMEN: Soft, nondistended, nontender, positive bowel sounds, no rebound, no guarding EXTREMETIES: No edema, cyanosis, clubbing NEUROLOGIC: Alert, oriented to person/place/time, CN's grossly intact, no focal deficits SKIN: No rash, wounds PSYCH: Normal mood, normal affect Results Laboratory Results: 11/30/16 03:12 11/30/16 03:12 11/29/16 11/29/16 11/30/16 20:20 23:10 03:12 WBC 6.4 RBC 3.12 L Hgb 9.8 L Hct 30.7 L MCV 98 H MCH 31.5 MCHC 32.0 RDW 19.4 H Plt Count 186 Seg Neutrophils % 84.1 H Lymphocytes % 5.6 L Monocytes % 9.6 Eosinophils % 0.5 Basophils % 0.2 Absolute Neutrophils 5.4 Absolute Lymphocytes 0.4 L Absolute Monocytes 0.6 Absolute Eosinophils 0.0 Absolute Basophils 0.0 Carbonic Acid 2.08 H HCO3/H2CO3 Ratio 16:1 ABG pH 7.32 L ABG pCO2 69.0 H ABG pO2 45.9 L ABG HCO3 34.4 H ABG O2 Saturation 76.4 L ABG Base Excess 6.4 VBG pH VBG pCO2 VBG HCO3 VBG Base Excess FiO2 6L Sodium Potassium Chloride Carbon Dioxide Anion Gap BUN Creatinine Est GFR ( Amer) Est GFR (Non-Af Amer) Glucose Calcium Urine Color PANDA Urine Appearance TURBID Urine pH 5.0 Ur Specific [place] 1.024 Urine Protein 100 H Urine Glucose (UA) NEGATIVE Urine Ketones NEGATIVE Urine Blood NEGATIVE Urine Nitrite NEGATIVE Ur Leukocyte Esterase SMALL H Urine WBC (Auto) 37 Urine RBC (Auto) 12 11/30/16 11/30/16 03:12 03:12 WBC RBC Hgb Hct MCV MCH MCHC RDW Plt Count Seg Neutrophils % Lymphocytes % Monocytes % Eosinophils % Basophils % Absolute Neutrophils Absolute Lymphocytes Absolute Monocytes Absolute Eosinophils Absolute Basophils Carbonic Acid HCO3/H2CO3 Ratio ABG pH ABG pCO2 ABG pO2 ABG HCO3 ABG O2 Saturation ABG Base Excess VBG pH 7.33 VBG pCO2 65.2 H* VBG HCO3 33.2 H VBG Base Excess 5.3 FiO2 Sodium 140.3 Potassium 3.9 Chloride 99 Carbon Dioxide 29 Anion Gap 12 BUN 22 H Creatinine 3.01 H Est GFR ( Amer) 18 L Est GFR (Non-Af Amer) 15 L Glucose 100 Calcium 8.7 Urine Color Urine Appearance Urine pH Ur Specific [place] Urine Protein Urine Glucose (UA) Urine Ketones Urine Blood Urine Nitrite Ur Leukocyte Esterase Urine WBC (Auto) Urine RBC (Auto) 11/26/16 11/27/16 11/27/16 21:35 01:23 06:05 Troponin I 0.015 0.015 0.012 11/26/16 11/27/16 11/28/16 17:10 06:05 03:50 INR 1.55 1.76 2.29 11/29/16 11/30/16 03:44 03:12 INR 2.96 3.10 Impressions: Lung Scan-VQ NM 11/28/16 00:00 IMPRESSION: No perfusion defects worrisome for acute pulmonary emboli. Right hemithorax volume loss with fluid in the major fissure Chest X-Ray 11/30/16 00:00 IMPRESSION: Interval worsening. Moderate-small, opacity/ effusion of bilateral lower hemithoraces. Moderate central edema pattern. Differential diagnosis includes CHF and multifocal pneumonia. Plan Time Spent: Greater than 30 Minutes
--- NOTE | 2016-11-30 17:48 | PDOC PROGRESS REPORT ---
Subjective Progress Note for:: 11/29/16 Subjective:: Patient seems to be doing about the same but was noted to have drop in blood pressure during dialysis and ended up getting 500 mL of fluid during dialysis. Patient declined transfer to tertiary care for ablation to [facility] but may consider transfer to [facility]. Pt is denying any chest arm or neck discomfort. Patient denying any PND, orthopnea. Patient denied any sustained palpitations, dizziness, syncope, near syncope. Patient denying any fever chills. Patient denying any other significant discomfort. Patient is maintaining chronic atrial fibrillation. Currently off amiodarone drip. Being maintained on Cardizem and beta val. Patient placed on by mouth amiodarone because of low blood pressure. Patient could not be dialyzed fully nor fluid withdrawn because of low blood pressure. Review of systems: Rest review of systems negative. Medications: Medications have been reviewed. Physical Exam Vital Signs: Temp Pulse Resp BP Pulse Ox 97.9 F 88 20 108/83 93 11/29/16 16:00 11/29/16 18:11 11/29/16 18:11 11/29/16 17:42 11/29/16 18:11 Intake & Output 11/28/16 11/29/16 11/30/16 06:59 06:59 06:59 Intake Total 877 644 550 Output Total 300 150 0 Balance 577 494 550 Weight 74.5 kg 72.5 kg Exam: GENERAL: well-nourished and in no acute distress. Alert and oriented x3 HEAD: Atraumatic, normocephalic. EYES: Pupils equal round and reactive to light, extraocular movements intact, sclera anicteric, conjunctiva are normal. ENT: TMs normal, nares patent, oropharynx clear without exudates. Moist mucous membranes. No oral ulcerations or bleeding gums noted NECK: supple without lymphadenopathy. Trachea is central. No cervical or axillary lymphadenopathy noted. Carotids are 2+, JVD NOTED BUT MAY BE PREDOMINANTLY CV WAVES. LUNGS: Respiration seems nonlabored, no significant accessory muscle action noted. Bibasilar fine crackles are noted No significant dullness noted on percussion. CHEST: Palpation of the chest wall shows no significant chest wall tenderness. No other significant abnormalities noted. HEART: [place] [employer], No PSH, 2/6 MICHEAL aortic area, 1/6 camacho systolic murmur mitral area , no rubs, no gallops. Prosthetic valve sounds are noted to be crisp. ABDOMEN: Soft, no significant tenderness appreciated, normoactive bowel sounds. No guarding, no rebound. No rigidity noted . No masses appreciated. EXTREMITIES: Pedal pulses are 1-2+, no calf tenderness noted. No clubbing or cyanosis.trace to 1+ pedal edema noted NEUROLOGICAL: Focused neurological exam showed no significant neurologic deficit. Normal speech, no focal weakness appreciated. PSYCH: Normal mood, normal affect. Judgment and insight within normal limits. SKIN: No significant ecchymosis, rash, ulcerations or signs of pruritus noted. MUSCULOSKELETAL EXAM: No significant joint swelling noted. Results Laboratory Results: 11/29/16 03:44 11/29/16 03:44 11/29/16 11/29/16 11/29/16 03:44 03:44 20:20 WBC 5.6 RBC 3.15 L Hgb 10.0 L Hct 31.3 L MCV 99 H MCH 31.6 MCHC 31.8 L RDW 20.0 H Plt Count 164 Seg Neutrophils % 77.5 Lymphocytes % 7.4 L Monocytes % 13.0 Eosinophils % 1.7 Basophils % 0.4 Absolute Neutrophils 4.3 Absolute Lymphocytes 0.4 L Absolute Monocytes 0.7 Absolute Eosinophils 0.1 Absolute Basophils 0.0 Sodium 140.9 Potassium 4.6 Chloride 99 Carbon Dioxide 30 Anion Gap 12 BUN 32 H Creatinine 4.02 H Est GFR ( Amer) 13 L Est GFR (Non-Af Amer) 11 L Glucose 133 H Calcium 8.7 Urine Color PANDA Urine Appearance TURBID Urine pH 5.0 Ur Specific [place] 1.024 Urine Protein 100 H Urine Glucose (UA) NEGATIVE Urine Ketones NEGATIVE Urine Blood NEGATIVE Urine Nitrite NEGATIVE Ur Leukocyte Esterase SMALL H Urine WBC (Auto) 37 Urine RBC (Auto) 12 11/26/16 11/27/16 11/27/16 21:35 01:23 06:05 Troponin I 0.015 0.015 0.012 Impressions: Chest X-Ray 11/26/16 16:55 IMPRESSION: CARDIAC ENLARGEMENT. STABLE DEGREE OF PULMONARY EDEMA WITH RIGHT PLEURAL EFFUSION Lung Scan-VQ NM 11/28/16 00:00 IMPRESSION: No perfusion defects worrisome for acute pulmonary emboli. Right hemithorax volume loss with fluid in the major fissure Assessment & Plan - Diagnosis (1) Hypotension (arterial) Qualifiers: Hypotension type: unspecified hypotension type Qualified Code(s): I95.9 - Hypotension, unspecified Is this a current diagnosis for this admission?: Yes (2) Atrial fibrillation with rapid ventricular response Is this a current diagnosis for this admission?: Yes (3) Congestive heart failure Qualifiers: Congestive heart failure type: systolic Congestive heart failure chronicity: acute on chronic Qualified Code(s): I50.23 - Acute on chronic systolic (congestive) heart failure Is this a current diagnosis for this admission?: Yes (4) Dyspnea Qualifiers: Dyspnea type: shortness of breath Qualified Code(s): R06.02 - Shortness of breath Is this a current diagnosis for this admission?: Yes (5) ESRD (end stage renal disease) on dialysis Is this a current diagnosis for this admission?: Yes (6) H/O prosthetic mitral valve Is this a current diagnosis for this admission?: Yes - Notes Notes: Atrial fibrillation with RVR: Patient still having intermittent RVR. Patient is having intermittent low blood pressure for which patient was started on by mouth amiodarone. Cardizem is now on hold. Patient is on beta val. Hypotension: A 2-D echo was ordered to evaluate hypotension. Needed to rule out any tamponade. A 2-D echo showed significant pulmonary hypertension and low blood pressure could be related to severe pulmonary hypertension and also interdependence of the ventricles in view of severe tricuspid regurgitation. Dyspnea: Patient to have intermittent positive pressure noninvasive noninvasive ventilation and oxygen supplementation. Patient could not have fluid removed on dialysis today. Prosthetic mechanical mitral and aortic valve: These seems to be functioning normally clinically. 2-D echo was inadequate to evaluate this. End-stage renal disease on dialysis. Nephrology is following. - Time Time with patient: Greater than 35 minutes - CODE STATUS was discussed, patient remains full code. Surrogate decision-maker unchanged. Multiple medical problems were addressed.More than 50% of the time spent coordinating care, discussing management plans with involved caregivers. Management plans discussed with involved personnels. Medical decision making was of moderate to high complexity, patient's has multiple severe comorbidities. Medications reviewed and adjusted accordingly: Yes
--- NOTE | 2016-11-30 17:55 | PDOC PROGRESS REPORT ---
Subjective Progress Note for:: 11/30/16 Subjective:: Patient seems to be worse with increased shortness of breath. Patient now agreeable transfer to tertiary care for further evaluation and management since she has not progressed much in spite of our best efforts. Pt is denying any chest arm or neck discomfort. Patient denying any PND, orthopnea. Patient has increased shortness of breath. Patient denying any fever chills. Patient has noted some total body discomfort. Patient is maintaining chronic atrial fibrillation. 2-D echo results reviewed. Will stop amiodarone. Start low-dose digoxin. Digoxin at 0.125 mg by mouth every other day. Review of systems: Rest review of systems negative. Medications: Medications have been reviewed. Physical Exam Vital Signs: Temp Pulse Resp BP Pulse Ox 98.6 F 89 27 H 135/64 H 95 11/30/16 12:00 11/30/16 12:55 11/30/16 17:00 11/30/16 15:44 11/30/16 17:00 Intake & Output 11/29/16 11/30/16 12/01/16 06:59 06:59 06:59 Intake Total 644 660 200 Output Total 150 30 380 Balance 494 630 -180 Weight 72.5 kg 77.8 kg Exam: GENERAL: Patient noted to be in mild respiratory distress. Alert and oriented x3 HEAD: Atraumatic, normocephalic. EYES: Pupils equal round and reactive to light, extraocular movements intact, sclera anicteric, conjunctiva are normal. ENT: TMs normal, nares patent, oropharynx clear without exudates. Moist mucous membranes. No oral ulcerations or bleeding gums noted NECK: supple without lymphadenopathy. Trachea is central. No cervical or axillary lymphadenopathy noted. Carotids are 2+, JVD 14 CM. LUNGS: Respiration seems nonlabored, no significant accessory muscle action noted. Bilateral fine crackles are noted. No significant dullness noted on percussion. CHEST: Palpation of the chest wall shows no significant chest wall tenderness. No other significant abnormalities noted. HEART: [place] [employer], No PSH, 2/6 MICHEAL aortic area, 1/6 camacho systolic murmur mitral area , no rubs, no gallops. ABDOMEN: Soft, no significant tenderness appreciated, normoactive bowel sounds. No guarding, no rebound. No rigidity noted . No masses appreciated. EXTREMITIES: Pedal pulses are 1-2+, no calf tenderness noted. No clubbing or cyanosis.1+ pedal edema noted NEUROLOGICAL: Focused neurological exam showed no significant neurologic deficit. Normal speech, no focal weakness appreciated. PSYCH: Normal mood, normal affect. Judgment and insight within normal limits. SKIN: No significant ecchymosis, rash, ulcerations or signs of pruritus noted. MUSCULOSKELETAL EXAM: No significant joint swelling noted. Results Laboratory Results: 11/30/16 03:12 11/30/16 03:12 11/29/16 11/29/16 11/30/16 20:20 23:10 03:12 WBC 6.4 RBC 3.12 L Hgb 9.8 L Hct 30.7 L MCV 98 H MCH 31.5 MCHC 32.0 RDW 19.4 H Plt Count 186 Seg Neutrophils % 84.1 H Lymphocytes % 5.6 L Monocytes % 9.6 Eosinophils % 0.5 Basophils % 0.2 Absolute Neutrophils 5.4 Absolute Lymphocytes 0.4 L Absolute Monocytes 0.6 Absolute Eosinophils 0.0 Absolute Basophils 0.0 Carbonic Acid 2.08 H HCO3/H2CO3 Ratio 16:1 ABG pH 7.32 L ABG pCO2 69.0 H ABG pO2 45.9 L ABG HCO3 34.4 H ABG O2 Saturation 76.4 L ABG Base Excess 6.4 VBG pH VBG pCO2 VBG HCO3 VBG Base Excess FiO2 6L Sodium Potassium Chloride Carbon Dioxide Anion Gap BUN Creatinine Est GFR ( Amer) Est GFR (Non-Af Amer) Glucose Calcium Urine Color PANDA Urine Appearance TURBID Urine pH 5.0 Ur Specific [place] 1.024 Urine Protein 100 H Urine Glucose (UA) NEGATIVE Urine Ketones NEGATIVE Urine Blood NEGATIVE Urine Nitrite NEGATIVE Ur Leukocyte Esterase SMALL H Urine WBC (Auto) 37 Urine RBC (Auto) 12 11/30/16 11/30/16 03:12 03:12 WBC RBC Hgb Hct MCV MCH MCHC RDW Plt Count Seg Neutrophils % Lymphocytes % Monocytes % Eosinophils % Basophils % Absolute Neutrophils Absolute Lymphocytes Absolute Monocytes Absolute Eosinophils Absolute Basophils Carbonic Acid HCO3/H2CO3 Ratio ABG pH ABG pCO2 ABG pO2 ABG HCO3 ABG O2 Saturation ABG Base Excess VBG pH 7.33 VBG pCO2 65.2 H* VBG HCO3 33.2 H VBG Base Excess 5.3 FiO2 Sodium 140.3 Potassium 3.9 Chloride 99 Carbon Dioxide 29 Anion Gap 12 BUN 22 H Creatinine 3.01 H Est GFR ( Amer) 18 L Est GFR (Non-Af Amer) 15 L Glucose 100 Calcium 8.7 Urine Color Urine Appearance Urine pH Ur Specific [place] Urine Protein Urine Glucose (UA) Urine Ketones Urine Blood Urine Nitrite Ur Leukocyte Esterase Urine WBC (Auto) Urine RBC (Auto) 11/26/16 11/27/16 11/27/16 21:35 01:23 06:05 Troponin I 0.015 0.015 0.012 Impressions: Lung Scan-VQ NM 11/28/16 00:00 IMPRESSION: No perfusion defects worrisome for acute pulmonary emboli. Right hemithorax volume loss with fluid in the major fissure Chest X-Ray 11/30/16 00:00 IMPRESSION: Interval worsening. Moderate-small, opacity/ effusion of bilateral lower hemithoraces. Moderate central edema pattern. Differential diagnosis includes CHF and multifocal pneumonia. Assessment & Plan - Diagnosis (1) Hypotension (arterial) Qualifiers: Hypotension type: unspecified hypotension type Qualified Code(s): I95.9 - Hypotension, unspecified Is this a current diagnosis for this admission?: Yes (2) Atrial fibrillation with rapid ventricular response Is this a current diagnosis for this admission?: Yes (3) Congestive heart failure Qualifiers: Congestive heart failure type: systolic Congestive heart failure chronicity: acute on chronic Qualified Code(s): I50.23 - Acute on chronic systolic (congestive) heart failure Is this a current diagnosis for this admission?: Yes (4) Dyspnea Qualifiers: Dyspnea type: shortness of breath Qualified Code(s): R06.02 - Shortness of breath Is this a current diagnosis for this admission?: Yes (5) ESRD (end stage renal disease) on dialysis Is this a current diagnosis for this admission?: Yes (6) H/O prosthetic mitral valve Is this a current diagnosis for this admission?: Yes - Notes Notes: Blood pressure has improved today. However dialysis not available today at this institution. Atrial fibrillation with RVR: Heart rate seems reasonably under good control but intermittent high rates are noted. It is felt that patient may benefit from ablation of AV node/ablation of atrial fibrillation with placement of permanent pacemaker. Patient on transfer list at [facility] and hopefully this could be accomplished there. Severe tricuspid regurgitation: Recent echocardiogram yesterday showed moderate to severe tricuspid regurgitation. Patient has some RV systolic dysfunction. Hopefully tricuspid ring annuloplasty could be performed. End-stage renal disease on dialysis: Patient does make some urine. Patient being given IV Lasix to help treat pulmonary edema. Prosthetic mechanical mitral and aortic valve: This seems to be functioning normally clinically but may need further evaluation with a transesophageal echocardiogram. Patient has numerous significant medical problems and treatment of this lady has been very challenging and difficult. Agree that patient will benefit from tertiary care transfer and treatment. Dr. Shea kindly arranged this. - Time Time with patient: Greater than 35 minutes - CODE STATUS was discussed, patient remains full code. Surrogate decision-maker unchanged. Multiple medical problems were addressed.More than 50% of the time spent coordinating care, discussing management plans with involved caregivers. Management plans discussed with involved personnels. Medical decision making was of moderate to high complexity, patient's has multiple severe comorbidities. Medications reviewed and adjusted accordingly: Yes
[2016-11-30] MEDS: ACETAMINOPHEN 325 MG TABLET PO PRN (19:38)
[2016-11-30] MEDS: LORAZEPAM 1 MG TABLET PO PRN (20:37)
[2016-11-30] MEDS: WARFARIN SODIUM 7.5 MG TABLET PO SCH (21:32)
[2016-11-30] MEDS: ATORVASTATIN CALCIUM 80 MG TABLET PO SCH (21:32)
[2016-11-30 22:06] VITALS: BP 151/59
== END 2016-11-30 22:30 | disposition short-term general hospital (02) | DRG 291 ==
LOC: ER 16:40 → EH 17:45 → UNDOADMIN 18:03 → EH 18:03 → ICU 11-27 02:09
PROVIDERS: ADMIT Family Medicine; ATTEND Family Medicine
PROC: 5A1D60Z (ICD-10-PCS; principal; 2016-11-27)
DX: I13.2 Hypertensive heart and chronic kidney disease with heart failure and with stage 5 chronic kidney disease, or end stage renal disease (principal); I50.23 Acute on chronic systolic (congestive) heart failure; N18.6 End stage renal disease; J96.01 Acute respiratory failure with hypoxia; E11.22 Type 2 diabetes mellitus with diabetic chronic kidney disease; I48.2 Chronic atrial fibrillation; I27.2 Other secondary pulmonary hypertension; D63.1 Anemia in chronic kidney disease; I45.10 Unspecified right bundle-branch block; I07.1 Rheumatic tricuspid insufficiency; I95.9 Hypotension, unspecified; E78.5 Hyperlipidemia, unspecified; J44.9 Chronic obstructive pulmonary disease, unspecified; F03.90 Unspecified dementia, unspecified severity, without behavioral disturbance, psychotic disturbance, mood disturbance, and anxiety; R51 Headache; I25.2 Old myocardial infarction; Z79.01 Long term (current) use of anticoagulants; Z99.2 Dependence on renal dialysis; Z95.2 Presence of prosthetic heart valve; Z88.0 Allergy status to penicillin; Z88.1 Allergy status to other antibiotic agents; Z88.8 Allergy status to other drugs, medicaments and biological substances
CPT/HCPCS: 36415; 71010; 78582; 80048; 80053; 81001; 82550; 82553; 82803; 82962; 83735; 84439; 84443; 84481; 84484; 85025; 85610; 93005; 93010; 93306; 94660; 96365; 99291; A9540; A9567; G8978-GP; G8979-GP; J0282; J1815; J1940; J2270; J2405; J3490; J7060; Q4081; Q9969

== ENCOUNTER 2017-01-23 17:11 | Inpatient (IN) | payer MEDICARE, OTHER ==
--- NOTE | 2017-01-23 17:39 | ER Document Report ---
ED General - General Mode of Arrival: Medic Information source: Patient TRAVEL OUTSIDE OF THE [place] IN LAST 30 DAYS: No - HPI Patient complains to provider of: Vomiting and abdominal pain Onset: This afternoon Associated symptoms: Other - see notes above <MAXIMINO CORREA - Last Filed: 01/23/17 19:38> <MARGARITABRANDON ROXANNE - Last Filed: 01/23/17 23:25> - General Chief Complaint: Respiratory Distress Stated Complaint: CHEST PAIN Time Seen by Provider: 01/23/17 17:18 Notes: 76 year old female with history of end stage renal disease who is dialyzed, [place], and aortic and mitral valve replacement presents to the ED complaining of vomiting and intermittent abdominal pain that started earlier today. Patient states that her daughter thinks she passed out earlier today. Patient reports no symptoms yesterday. Patient denies fever. PCP: Dr. Branch (MAXIMINO CORREA) - Related Data Allergies/Adverse Reactions: Penicillins Allergy (Severe, Verified 01/16/17 10:56) Swelling of hands and/or feet vancomycin [Vancomycin] Adverse Reaction (Intermediate, Verified 01/16/17 10:56) Swelling of hands and/or feet hydrochlorothiazide [From Dyazide] Adverse Reaction (Verified 01/16/17 10:56) Swelling of hands and/or feet triamterene [From Dyazide] Adverse Reaction (Verified 01/16/17 10:56) Swelling of hands and/or feet Past Medical History - General Information source: Patient - Social History Smoking Status: Unknown if Ever Smoked Family History: Reviewed & Not Pertinent, COPD, DM, Hypertension - Past Medical History Cardiac Medical History: Reports: Hx Atrial Fibrillation, Hx Congestive Heart Failure, Hx Heart Attack, Hx Hypercholesterolemia, Hx Hypertension, Hx Heart Murmur - Aortic and mitral valve replacement. Pulmonary Medical History: Reports: Hx COPD, Hx Pneumonia Endocrine Medical History: Reports: Hx Diabetes Mellitus Type 2 Renal/ Medical History: Reports: Hx End Stage Renal Disease, Hx Hemodialysis GI Medical History: Reports: Hx Colonoscopy, Hx Endoscopy Musculoskeltal Medical History: Reports Hx Arthritis, Reports Hx Gout Psychiatric Medical History: Reports: Hx Depression Past Surgical History: Reports: Hx Cardiac Surgery - artificial valves x2, Hx Hysterectomy, Hx Orthopedic Surgery - Back surgery 2, Hx Valve Replacement - Mitral and aortic valve replacement, Other - Left forearm fistula, EGD, colonoscopy, right IJV PermCath - Immunizations Hx Diphtheria, Pertussis, Tetanus Vaccination: Yes Hx Pneumococcal Vaccination: 07/28/13 <MAXIMINO CORREA - Last Filed: 01/23/17 19:38> Review of Systems - Review of Systems Constitutional: No symptoms reported. denies: Fever EENT: No symptoms reported Cardiovascular: No symptoms reported Respiratory: No symptoms reported Gastrointestinal: See HPI, Abdominal pain, Vomiting Genitourinary: No symptoms reported Female Genitourinary: No symptoms reported Musculoskeletal: No symptoms reported Skin: No symptoms reported Hematologic/Lymphatic: No symptoms reported Neurological/Psychological: No symptoms reported <MAXIMINO CORREA - Last Filed: 01/23/17 19:38> Physical Exam - Vital signs Interpretation: Hypotensive, Tachycardic - General General appearance: Alert In distress: None - HEENT Head: Normocephalic, Atraumatic Eyes: Normal Extraocular movements intact: Yes Pupils: PERRL - Respiratory Respiratory status: No respiratory distress Breath sounds: Normal - Cardiovascular Rhythm: Regular Heart sounds: Normal auscultation - Abdominal Inspection: Normal Distension: No distension Tenderness: Tender - Bilateral upper quadrant tenderness to palpation - Back Back: Normal - Extremities General upper extremity: Normal inspection, Normal ROM General lower extremity: Normal inspection, Normal ROM - Neurological Neuro grossly intact: Yes Cognition: Normal Orientation: AAOx4 [employer] [place] [employer] Coma Scale Eye Opening: Spontaneous [employer] Coma Scale Verbal: Oriented [employer] Coma Scale Motor: Obeys Commands Dia Coma Scale Total: 15 Speech: Normal - Psychological Associated symptoms: Normal affect, Normal mood - Skin Skin Temperature: Warm Skin Moisture: Dry Skin Color: Normal <MAXIMINO CORREA - Last Filed: 01/23/17 19:38> Course - Laboratory Result Diagrams: 01/23/17 18:20 01/23/17 18:20 <MAXIMINO CORREA - Last Filed: 01/23/17 19:38> - Laboratory Result Diagrams: 01/23/17 18:20 01/23/17 21:10 <BRANDON AVILA - Last Filed: 01/23/17 23:25> - Re-evaluation Re-evalutation: 01/23/17 23:24 Patient is a 76-year-old female with multiple chronic medical problems who initially came in after an episode of chest pain, difficulty breathing, near syncope. Patient had dialysis today and experienced the symptoms about 2 hours after her full dialysis. Patient initially was complaining of upper abdominal pain. No acute findings on CT or ultrasound although the patient does have gallstones. She is in no pain at this time. Patient has had some nausea which treated with Zofran and Reglan. She is no further nausea at this time. Patient is orthostatic and felt lightheaded with standing. Patient has a right pleural effusion but it looks improved at this time. Troponin is not elevated. EKG is similar compared to old. The patient will be kept in the hospital tonight. Stable at time of admission. (BRANDON AVLIA) - Vital Signs Vital signs: Temp Pulse Resp BP Pulse Ox 98.4 F 85 21 H 121/79 98 01/23/17 21:38 01/23/17 23:14 01/23/17 23:11 01/23/17 23:14 01/23/17 23:11 - Laboratory Laboratory results interpreted by or: 01/23/17 01/23/17 01/23/17 18:20 18:20 18:20 RBC 2.74 L Hgb 9.0 L Hct 28.5 L MCV 104 H MCHC 31.6 L RDW 19.4 H Lymphocytes % 8.8 L Monocytes % 13.5 H Absolute Lymphocytes 0.4 L PT 16.6 H VBG pH 7.29 L BUN Creatinine Est GFR ( Amer) Est GFR (Non-Af Amer) Glucose AST Urine Protein Urine Blood Urine Bilirubin Urine Urobilinogen Ur Leukocyte Esterase Urine Ascorbic Acid 01/23/17 01/23/17 21:10 22:26 RBC Hgb Hct MCV MCHC RDW Lymphocytes % Monocytes % Absolute Lymphocytes PT VBG pH BUN 24 H Creatinine 2.78 H Est GFR ( Amer) 20 L Est GFR (Non-Af Amer) 17 L Glucose 175 H AST 57 H Urine Protein 100 H Urine Blood MODERATE H Urine Bilirubin SMALL H Urine Urobilinogen 2.0 H Ur Leukocyte Esterase TRACE H Urine Ascorbic Acid 20 H Discharge <MAXIMINO CORREA - Last Filed: 01/23/17 19:38> - Discharge Admitting Provider: Hospitalist Unit Admitted: [facility] <BRANDON AVILA - Last Filed: 01/23/17 23:25> - Discharge Clinical Impression: Near syncope, ESRD (end stage renal disease) on dialysis Chest pain Qualifiers: Chest pain type: unspecified Qualified Code(s): R07.9 - Chest pain, unspecified Congestive heart failure Qualifiers: Congestive heart failure type: systolic Congestive heart failure chronicity: acute on chronic Qualified Code(s): I50.23 - Acute on chronic systolic ( congestive) heart failure Condition: Stable Disposition: ADMITTED OBSERVATION Referrals: CHRIS BRANCH MD [Primary Care Provider] - Follow up as needed Scribe Attestation: 01/23/17 23:22 I personally performed the services described in the documentation, reviewed and edited the documentation which was dictated to the scribe in my presence, and it accurately records my words and actions. (BRANDON AVILA) Scribe Documentation - Scribe Written by Scribe:: Emilie Bruce, 01/23/2017 1937 acting as scribe for :: Margarita <MAXIMINO CORREA - Last Filed: 01/23/17 19:38>
[2017-01-23] MEDS ORDERED: NORMAL SALINE 250 ML IV ONE (17:41)
--- NOTE | 2017-01-23 18:03 | RADIOLOGY REPORT (SQ) ---
EXAM DESCRIPTION: CHEST SINGLE VIEW COMPLETED DATE/TIME: 01/23/2017 5:50 pm REASON FOR STUDY: SOB COMPARISON: 11/30/2016. NUMBER OF VIEWS: One view. TECHNIQUE: Single frontal radiographic view of the chest acquired. LIMITATIONS: None. FINDINGS: LUNGS AND PLEURA: Right basilar density with pleural effusion. Generally improved appeara nce compared to the previous study. MEDIASTINUM AND HILAR STRUCTURES: No masses or contour abnormality. HEART AND VASCULATURE: Cardiac enlargement. Vascular congestion. BONES: No acute findings. HARDWARE: Vascular access port. Sternotomy wires. OTHER: No other significant finding. IMPRESSION: CARDIAC ENLARGEMENT. VASCULAR CONGESTION. RIGHT BASILAR DENSITY WITH PLEURAL EFFUSION. GENERALLY IMPROVED COMPARED TO THE PRIOR STUDY. TECHNICAL DOCUMENTATION: JOB ID: [id number] [employer]- All Rights Reserved
--- NOTE | 2017-01-23 18:07 | RADIOLOGY REPORT (SQ) ---
EXAM DESCRIPTION: CT ABD/PELVIS NO ORAL OR IV COMPLETED DATE/TIME: 01/23/2017 5:53 pm REASON FOR STUDY: abd pain, n/V COMPARISON: None. TECHNIQUE: CT scan of the abdomen and pelvis performed without intravenous or oral contrast. Images reviewed with lung, soft tissue, and bone windows. Reconstructed coronal and sagittal MPR images revi ewed. All images stored on PACS. All CT scanners at this facility use dose modulation, iterative reconstruction, and/or weight based d osing when appropriate to reduce radiation dose to as low as reasonably achievable (ALARA). [facility]: Dose Right [facility]: CareDose [facility]: Dose Right [facility]: Teradose 4D [facility]: Smart Shoutlet RADIATION DOSE: Up-to-date CT equipment and radiation dose reduction techniques were employed. CTDIv ol: 5.2 mGy. DLP: 291 mGy-cm.mGy. LIMITATIONS: None. FINDINGS: LOWER CHEST: Cardiomegaly. Moderate right pleural effusion with basilar atelectasis. NON-CONTRASTED LIVER, SPLEEN, ADRENALS: Evaluation limited by lack of IV contrast. No identified sign ificant masses. PANCREAS: No masses. No peripancreatic inflammatory changes. GALLBLADDER: Gallstones. No inflammatory changes to suggest cholecystitis. RIGHT KIDNEY AND URETER: No suspicious masses. Assessment limited by lack of IV contrast. No signif icant calcifications. No hydronephrosis or hydroureter. LEFT KIDNEY AND URETER: 3 x 4 cm cyst in the upper pole. No suspicious masses. Assessment limited by lack of IV contrast. No significant calcifications. No hydronephrosis or hydroureter. AORTA AND RETROPERITONEUM: No aneurysm. No retroperitoneal masses or adenopathy. BOWEL AND PERITONEAL CAVITY: No obvious masses or inflammatory changes. No free fluid. APPENDIX: Normal. PELVIS, BLADDER, AND ABDOMINAL WALL:No abnormal masses. No free fluid. Bladder normal. BONES: No significant findings. OTHER: No other significant finding. IMPRESSION: 1. GALLSTONES. NO CT FINDINGS OF ACUTE INFLAMMATION. 2. 3 X 4 CM CORTICAL CYST IN THE LEFT KIDNEY. 3. CARDIOMEGALY. MODERATE RIGHT PLEURAL EFFUSION WITH BASILAR ATELECTASIS. 4. NO OTHER SIGNIFICANT OR ACUTE PROCESS IN THE ABDOMEN OR PELVIS. TECHNICAL DOCUMENTATION: JOB ID: [id number] Quality ID # [id number]: Final reports with documentation of one or more dose reduction techniques (e.g., Au tomated exposure control, adjustment of the mA and/or kV according to patient size, use of iterative reconstruction technique) 2010 [employer]- All Rights Reserved
[2017-01-23 18:45] LABS: VENOUS BLOOD BASE EXCESS 0.7 mmol/L; VENOUS BLOOD PCO2 61.9 mmHg (35-63); VENOUS BLOOD PH 7.29 (7.30-7.42)
[2017-01-23 18:46] LABS: PROTHROMBIN TIME 16.6 SEC (11.4-15.4)
[2017-01-23 19:18] LABS: ABSOLUTE BASOPHILS # (AUTO) 0.1 10^3/uL (0.0-0.2); ABSOLUTE EOSINOPHILS # (AUTO) 0.1 10^3/uL (0.0-0.6); ABSOLUTE LYMPHOCYTES (AUTO) 0.4 10^3/uL (0.5-4.7); ABSOLUTE MONOCYTES (AUTO) 0.7 10^3/uL (0.1-1.4); ABSOLUTE NEUT (AUTO) 3.8 10^3/uL (1.7-8.2); BASOPHILS % (AUTO) 1.2 % (0-2); EOSINOPHILS % (AUTO) 1.6 % (0-6); HEMATOCRIT 28.5 % (36.0-47.0); HGB HCT DIFFERENCE -1.5; LYMPHOCYTES % (AUTO) 8.8 % (13-45); MEAN CORPUSCULAR HEMOGLOBIN 32.8 pg (27.0-33.4); MEAN CORPUSCULAR HGB CONC 31.6 g/dL (32.0-36.0); MEAN CORPUSCULAR VOLUME 104 fl (80-97); MONOCYTES % (AUTO) 13.5 % (3-13); RED BLOOD COUNT 2.74 10^6/uL (3.72-5.28); RED CELL DISTRIBUTION WIDTH 19.4 % (11.5-14.0); SEGMENTED NEUTROPHILS % (AUTO) 74.9 % (42-78); WHITE BLOOD COUNT 5.1 10^3/uL (4.0-10.5)
[2017-01-23 19:33] LABS: ANISOCYTOSIS 2+; BURR CELLS SLIGHT; HYPOCHROMASIA SLIGHT; OVALOCYTES 1+; POIKILOCYTOSIS 1+; POLYCHROMASIA SLIGHT; TARGET CELLS 1+; TEAR DROP CELLS SLIGHT
[2017-01-23] MEDS ORDERED: METOCLOPRAMIDE HCL INJ/PF 10 MG/2 ML SDV IV ONE (20:23)
--- NOTE | 2017-01-23 21:21 | RADIOLOGY REPORT (SQ) ---
EXAM DESCRIPTION: U/S ABDOMEN COMPLETE W/O DOP COMPLETED DATE/TIME: 01/23/2017 9:10 pm REASON FOR STUDY: evaluate GB COMPARISON: 06/03/2016. TECHNIQUE: Dynamic and static grayscale images acquired of the abdomen and recorded on PACS. Additio nal selected color Doppler and spectral images recorded. LIMITATIONS: None. FINDINGS: PANCREAS: No masses. Visualized pancreatic duct normal caliber. LIVER: No masses. Echotexture normal. LIVER VASCULATURE: Normal directional flow of the main portal vein and hepatic veins. GALLBLADDER: Gallstone(s). No pericholecystic fluid. No wall thickening. ULTRASOUND-DETECTED GODINEZ'S SIGN: Negative. INTRAHEPATIC DUCTS AND COMMON DUCT: CBD and intrahepatic ducts normal caliber. No filling defects. INFERIOR VENA CAVA: Normal flow. AORTA: No aneurysm. RIGHT KIDNEY: Normal size. Normal echogenicity. No solid or suspicious masses. No hydronephros is. No calcifications. LEFT KIDNEY: Normal size. Normal echogenicity. 2.8 cm cyst. No solid or suspicious masses. No hydronephrosis. No calcifications. SPLEEN: Normal size. No solid masses. PERITONEAL AND PLEURAL SPACES: No ascites. Right pleural effusion. OTHER: No other significant finding. IMPRESSION: 1. GALLSTONES. 2. CORTICAL CYST IN THE LEFT KIDNEY. 3. RIGHT PLEURAL EFFUSION. TECHNICAL DOCUMENTATION: JOB ID: [id number]- All Rights Reserved
[2017-01-23 21:40] LABS: ALANINE AMINOTRANSFERASE 23 U/L (9-52); ALBUMIN 3.6 g/dL (3.5-5.0); ALKALINE PHOSPHATASE 117 U/L (38-126); ANION GAP 10 (5-19); ASPARTATE AMINO TRANSFERASE 57 U/L (14-36); BILIRUBIN,DIRECT 0.4 mg/dL (0.0-0.4); BILIRUBIN,TOTAL 0.9 mg/dL (0.2-1.3); BLOOD UREA NITROGEN 24 mg/dL (7-20); CALCIUM 8.5 mg/dL (8.4-10.2); CARBON DIOXIDE 27 mmol/L (22-30); CHLORIDE 100 mmol/L (98-107); CREATINE KINASE 47 U/L (30-135); CREATININE RESULT 2.78 mg/dL (0.52-1.25); GLUCOSE 175 mg/dL (75-110); SODIUM 137.2 mmol/L (137-145)
--- NOTE | 2017-01-23 21:52 | EKG REPORT ---
SEVERITY:- ABNORMAL ECG - A FIB WITH NON SPECIFIC IVCD MULTIFORM VENTRICULAR PREMATURE COMPLEXES LVH WITH SECONDARY REPOLARIZATION ABNORMALITY INFERIOR INFARCT, AGE INDETERMINATE : Confirmed by: Anusha Martines 23-Jan-2017 21:51:17
[2017-01-23 22:39] LABS: CREATINE KINASE MB 1.24 ng/mL (<4.55); TROPONIN I 0.021 ng/mL
[2017-01-23 22:52] LABS: APPEARANCE,URINE CLOUDY; BILIRUBIN,URINE SMALL (NEGATIVE); GLUCOSE, URINE NEGATIVE (NEGATIVE); KETONES,URINE NEGATIVE (NEGATIVE); LEUKOCYTE ESTERASE,URINE TRACE (NEGATIVE); NITRITE,URINE NEGATIVE (NEGATIVE); PROTEIN,URINE 100 mg/dL (NEGATIVE); URINE SPECIFIC GRAVITY 1.015
[2017-01-24 01:00] LABS: ADD ON TESTING BLD IN LAB ACKNOWLEDGE
[2017-01-24] MEDS ORDERED: PROMETHAZINE HCL 25 MG TABLET PO PRN (01:07)
[2017-01-24 01:17] LABS: DIGOXIN 0.48 ng/mL (0.8-2.0)
--- NOTE | 2017-01-24 01:39 | PDOC H&P ---
History of Present Illness Admission Date/PCP: 01/23/17 23:40 CHRIS BENEDICT MD Nephro Dr. Nelson Patient complains of: chest/abd pain, lightheaded History of Present Illness: TAMMY BUCKLEY is a 76 year old -Swiss female, with a fairly complicated medical history, including end-stage renal disease, on Friday dialysis, with full session on the , atrial fibrillation, with, according to the emergency room physician, not infrequent ER visits for atrial fibrillation with rapid ventricular response, status post mitral and aortic valve replacements, and underlying systolic congestive heart failure, who presents to the emergency room for evaluation of above complaints. Patient has been discussed with emergency room physician who evaluated the patient. Patient is oriented to location and year, but is not certain why she is in the emergency room and is able to provide basically little history in terms of chronic events, review of systems, personal habits, family history, etc. intermittent confused answers to basic questions. No friends or family are present. Old inpatient records are reviewed. According to the emergency room physician, initial plans were to send the patient home. However, when they performed orthostatic vital signs, she became quite lightheaded and unsteady on her feet, with orthostatic hypotension noted. Emergency room physician made a comment that "tonight is the best I have ever seen her." ER physician also made the comment that patient's usual ER visits are usually post dialysis sessions, as was the case this time. Currently resting quietly, pain-free. Does admit to one episode of vomiting on the , but no nausea now. No fever or chills, diarrhea or dysuria. Hospitalized on our service the through 30 of November with transfer diagnoses to [facility] of acute hypoxic respiratory failure , acute on chronic systolic congestive heart failure, subtherapeutic INR, and atrial fibrillation with rapid ventricular response, with difficult to control heart rate. History and physical and transfer summary have been reviewed. Laboratory results are listed in [employer] and are reviewed. X-ray summary results are listed below, with full report(s) reviewed. . EKG reviewed and compared to prior tracing from 28 November of this year. Social history/personal habits: Reportedly lives with family. No further information available this point in time. Allergies/adverse reactions are listed in [employer] and are reviewed. Home medications initially autopopulated into [employer] may not accurately reflect patient's true medications, dosages, and/or frequencies. sterile process tech to reconcile medications. Unfortunately, patient not able to provide any information related to medications/dosages/frequencies. REVIEW OF SYSTEMS: See history and present illness. No further information available this point in time. PHYSICAL EXAMINATION: Neither height nor weight are recorded on the chart. Blood pressure 102/60. Pulse 85 and slightly irregular. Respirations are 18 and unlabored. 97% saturation on 2 L oxygen per nasal cannula. Temperature 98.4. Well-nourished well-developed elderly -Swiss female appearing a bit younger than her stated age. Slightly fatigued and drowsy, but overall awake alert pleasant and cooperative. No obvious distress other than perhaps mildly anxious. Skin is warm and dry. No grossly obvious evidence of rash in areas of skin examined. No subcutaneous nodules palpated. ENT: Hearing grossly normal to normal conversation. Tongue midline on protrusion pink and slightly tacky. Eyes: No scleral icterus. Pupils equal and reactive to light at 4 mm. [place] conjunctivae. Neck is supple and nontender to gentle active range of motion and palpation. Midline trachea. No palpable thyroid nodule mass enlargement or tenderness. Lymphatic: No palpable cervical or clavicular nodes. Neck and lymphatic exams limited by patient body habitus. Psychiatric: Difficult to adequately evaluate; see History and Present Illness. Lungs: Auscultation reveals clear and equal breath sounds bilaterally. No use of accessory respiratory muscles. Cardiovascular: Heart slightly irregular rate and rhythm, without gallop murmur or rub. Valve clicks noted. No carotid or abdominal aortic bruits. No ankle or pedal edema. Faintly palpable dorsalis pedis pulses. Abdomen:soft slightly distended nontender with positive bowel sounds. Unable to adequately evaluate abdomen for masses or organomegaly due to distention. Extremities: Feet are warm and dry. No calf tenderness to compression. No grossly obvious visual evidence of calf swelling. Gentle manipulation of lower extremities fails to reveal any obvious evidence of injury or instability to knees hips or ankles. Neurologic: Moves upper extremities grossly normally. Patellar reflexes absent. Absent Babinski. Light touch is intact at feet. Dorsiflexion and plantarflexion of feet 5 / 5 and symmetric. Past Medical History Past Medical History: Patient unable to provide any information related to past medical history. Old and current records reviewed. Cardiac Medical History: Reports: Atrial Fibrillation, Congestive Heart Failure , Myocardial Infarction, Hyperlipidema, Hypertension, Heart Murmur - Aortic and mitral valve replacement. Denies: Coronary Artery Disease Pulmonary Medical History: Reports: Chronic Obstructive Pulmonary Disease (COPD) , Pneumonia Denies: Asthma, Bronchitis Neurological Medical History: Denies: Seizures Endocrine Medical History: Reports: Diabetes Mellitus Type 2 Renal/ Medical History: Reports: End Stage Renal Disease Musculoskeltal Medical History: Reports: Arthritis, Gout Psychiatric Medical History: Reports: Depression Hematology: Denies: Anemia Past Surgical History Past Surgical History: Reports: Hysterectomy, Orthopedic Surgery - Back surgery 2, Valve Replacement - Mitral and aortic valve replacement, Other - Left forearm fistula, EGD, colonoscopy, right IJV PermCath Social History Information Source: Emergency Med Personnel, [facility] Records Lives with: Family - Reportedly lives with family Smoking Status: Unknown if Ever Smoked Frequency of Alcohol Use: None Hx Recreational Drug Use: No Drugs: None Hx Prescription Drug Abuse: No - Advance Directive Resuscitation Status: Full Code Surrogate healthcare decision maker:: Uncertain at this point in time, due to patient mental status. Family History Family History: Reviewed & Not Pertinent, COPD, DM, Hypertension Parental Family History Reviewed: No - Patient unable to provide any information Children Family History Reviewed: No - Patient unable to provide any information Sibling(s) Family History Reviewed.: No - Patient unable to provide any information Medication/Allergy Home Medications: B Complex & C No.20/Folic Acid [Virt-Caps Softgel] 1 mg PO DAILY 11/26/16 Escitalopram Oxalate [Lexapro] 20 mg PO DAILY 11/26/16 Pantoprazole Sodium [Protonix] 40 mg PO DAILY 11/26/16 Warfarin Sodium [Coumadin 7.5 mg Tablet] 7.5 mg PO SUTUTHSA PRN 11/26/16 Midodrine HCl [Proamatine 5 mg Tablet] 5 mg PO Q12 01/16/17 Aspirin [Aspirin EC] 81 mg PO DAILY 01/24/17 Atorvastatin Calcium [Lipitor 20 mg Tablet] 20 mg PO QHS 01/24/17 Metoprolol Succinate [Toprol Xl 50 mg Tab.sr] 50 mg PO Q12 01/24/17 Trazodone HCl [Desyrel 50 mg Tablet] 25 mg PO QHS 01/24/17 Warfarin Sodium [Coumadin 5 mg Tablet] 5 mg PO MOWEFR 06/30/17 Allergies/Adverse Reactions: Penicillins Allergy (Severe, Verified 01/16/17 10:56) Swelling of hands and/or feet vancomycin [Vancomycin] Adverse Reaction (Intermediate, Verified 01/16/17 10:56) Swelling of hands and/or feet hydrochlorothiazide [From Dyazide] Adverse Reaction (Verified 01/16/17 10:56) Swelling of hands and/or feet triamterene [From Dyazide] Adverse Reaction (Verified 01/16/17 10:56) Swelling of hands and/or feet Physical Exam Vital Signs: Temp Pulse Resp BP Pulse Ox 98.4 F 85 21 H 121/79 98 01/23/17 21:38 01/23/17 23:14 01/23/17 23:11 01/23/17 23:14 01/23/17 23:11 Results Impressions: Chest X-Ray 01/23/17 17:19 IMPRESSION: CARDIAC ENLARGEMENT. VASCULAR CONGESTION. RIGHT BASILAR DENSITY WITH PLEURAL EFFUSION. GENERALLY IMPROVED COMPARED TO THE PRIOR STUDY. Abdomen/Pelvis CT 01/23/17 17:41 IMPRESSION: 1. GALLSTONES. NO CT FINDINGS OF ACUTE INFLAMMATION. 2. 3 X 4 CM CORTICAL CYST IN THE LEFT KIDNEY. 3. CARDIOMEGALY. MODERATE RIGHT PLEURAL EFFUSION WITH BASILAR ATELECTASIS. 4. NO OTHER SIGNIFICANT OR ACUTE PROCESS IN THE ABDOMEN OR PELVIS. Abdomen Ultrasound 01/23/17 19:01 IMPRESSION: 1. GALLSTONES. 2. CORTICAL CYST IN THE LEFT KIDNEY. 3. RIGHT PLEURAL EFFUSION. Assessment & Plan - Diagnosis (1) Orthostatic hypotension Is this a current diagnosis for this admission?: YesPlan: Suspect multiple etiologies. Perhaps an element of dehydration from her dialysis session on the . Strongly encouraged patient not to get out of bed without notifying staff to avoid a fall with injury. Orthostatic vital signs every 4 hours while awake, starting at 7 AM on 2016. (2) Abdominal pain Qualifiers: Abdominal location: unspecified location Qualified Code(s): R10.9 - Unspecified abdominal pain Is this a current diagnosis for this admission?: YesPlan: Resolved at present. Follow clinically. (3) Abnormal urinalysis Is this a current diagnosis for this admission?: YesPlan: Urine culture. We will forego antibiotics at this point in time. (4) Anticoagulated Is this a current diagnosis for this admission?: YesPlan: Resume home medications as appropriate once these have been determined and reviewed. Adjustment of Coumadin dose may be necessary, considering this is her second recent hospital admission with subtherapeutic INR. (5) Chest pain Qualifiers: Chest pain type: unspecified Qualified Code(s): R07.9 - Chest pain, unspecified Is this a current diagnosis for this admission?: YesPlan: Resolved at present. Serial troponins. Repeat EKG. (6) Subtherapeutic international normalized ratio (INR) Is this a current diagnosis for this admission?: YesPlan: Heparin drip protocol. (7) ESRD (end stage renal disease) on dialysis Is this a current diagnosis for this admission?: YesPlan: Nephrology consult. (8) Atrial fibrillation Qualifiers: Atrial fibrillation type: chronic Qualified Code(s): I48.2 - Chronic atrial fibrillation Is this a current diagnosis for this admission?: YesPlan: Resume home medications as appropriate once these have been determined and reviewed. 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 Accu-Cheks with appropriate sliding scale coverage. Resume home medications as appropriate once these have been determined and reviewed. (10) Near syncope Is this a current diagnosis for this admission?: Yes
[2017-01-24] MEDS ORDERED: HEPARIN SODIUM,PORCINE/D5W 25,000 UNIT/250 ML RTUINJ IV ONE (01:59)
[2017-01-24] MEDS: HEPARIN SODIUM,PORCINE/D5W 250 ML IV PRN (02:00)
[2017-01-24 04:48] LABS: ABSOLUTE BASOPHILS # (AUTO) 0.1 10^3/uL (0.0-0.2); ABSOLUTE EOSINOPHILS # (AUTO) 0.2 10^3/uL (0.0-0.6); ABSOLUTE LYMPHOCYTES (AUTO) 0.9 10^3/uL (0.5-4.7); ABSOLUTE MONOCYTES (AUTO) 0.6 10^3/uL (0.1-1.4); ABSOLUTE NEUT (AUTO) 2.6 10^3/uL (1.7-8.2); BASOPHILS % (AUTO) 1.4 % (0-2); EOSINOPHILS % (AUTO) 4.3 % (0-6); HEMATOCRIT 29.1 % (36.0-47.0); HEMOGLOBIN 9.1 g/dL (12.0-15.5); HGB HCT DIFFERENCE -1.8; LYMPHOCYTES % (AUTO) 20.3 % (13-45); MEAN CORPUSCULAR HEMOGLOBIN 32.6 pg (27.0-33.4); MEAN CORPUSCULAR HGB CONC 31.3 g/dL (32.0-36.0); MEAN CORPUSCULAR VOLUME 104 fl (80-97); MONOCYTES % (AUTO) 13.7 % (3-13); RED CELL DISTRIBUTION WIDTH 18.7 % (11.5-14.0); SEGMENTED NEUTROPHILS % (AUTO) 60.3 % (42-78); WHITE BLOOD COUNT 4.3 10^3/uL (4.0-10.5)
[2017-01-24 04:49] LABS: VENOUS BLOOD BASE EXCESS -1.1 mmol/L; VENOUS BLOOD HCO3 26.5 mmol/L (20-32); VENOUS BLOOD PCO2 58.6 mmHg (35-63); VENOUS BLOOD PH 7.27 (7.30-7.42)
[2017-01-24 05:00] LABS: ANION GAP 9 (5-19); BLOOD UREA NITROGEN 27 mg/dL (7-20); CALCIUM 8.8 mg/dL (8.4-10.2); CARBON DIOXIDE 28 mmol/L (22-30); CHLORIDE 102 mmol/L (98-107); CREATININE RESULT 3.23 mg/dL (0.52-1.25); GLUCOSE 103 mg/dL (75-110); POTASSIUM 4.1 mmol/L (3.6-5.0); SODIUM 138.6 mmol/L (137-145)
--- NOTE | 2017-01-24 09:22 | PDOC CONSULTATION ---
Consultation Consult Date: 01/24/17 Consult reason:: ESRD , Hypotension and need for Dialysis History of Present Illness Admission Date/PCP: 01/24/17 00:56 CHRIS BENEDICT MD History of Present Illness: TAMMY BUCKLEY is a 76 year old -Hond[place] female, with a fairly complicated medical history, including end-stage renal disease, on Friday dialysis, with full session on the , atrial fibrillation, with, according to the emergency room physician, not in frequent ER visits for atrial fibrillation with rapid ventricular response, status post mitral and aortic valve replacements, Systolic congestive heart failure, and Dementia who presents to the emergency room with c/o orthostasis, progressive weakness. Patient has very poor memory and retention capability Patient is oriented to location and year, but is not certain why she is in the emergency room and is able to provide basically little history whatsoever in terms of chronic events, review of systems, personal habits, family history, etc. intermittent confused answers to basic questions. She lives with her who has serious co morbidities himself. According to the emergency room physician, initial plans were to send the patient home. However, when they performed orthostatic vital signs on the patient, she became quite lightheaded and unsteady on her feet, with orthostatic hypotension noted. Emergency room physician made a comment that "tonight is the best I have ever seen her." ER physician also made the comment that patient's usual ER visits are post dialysis sessions, as was the case this time. No fever or chills, diarrhea or dysuria. Hospitalized on our service the second through 30 November with transfer diagnoses to [facility] of acute hypoxic respiratory failure, acute on chronic systolic congestive heart failure, sub therapeutic INR, and atrial fibrillation with rapid ventricular response, with difficult to control heart rate. Seen on Dialysis today. She still feels weak.No chest pains, dyspnea. Unable to recollect why she has been admitted.However undergoing Dialysis without any issues.VS stable. Past Medical History Cardiac Medical History: Reports: Atrial Fibrillation, Heart Murmur - Aortic and mitral valve replacement., Hyperlipidemia, Hypertension-primary, Myocardial Infarction Denies: Coronary Artery Disease Pulmonary Medical History: Reports: Chronic Obstructive Pulmonary Disease (COPD) , Pneumonia Denies: Asthma, Bronchitis Neurological Medical History: Denies: Seizures Endocrine Medical History: Reports: Diabetes Mellitus Type 2 Renal/ Medical History: Reports: End Stage Renal Disease Musculoskeltal Medical History: Reports: Arthritis, Gout Psychiatric Medical History: Reports: Depression Hematology Medical History: Reports Anemia of Chronic Kidney Disease Past Surgical History Past Surgical History: Reports: Hysterectomy, Orthopedic Surgery - Back surgery 2, Valve Replacement - Mitral and aortic valve replacement, Other - Left forearm fistula, EGD, colonoscopy, right IJV PermCath Social History Lives with: Family - Reportedly lives with family Smoking Status: Current Every Day Smoker Cigarettes Packs Per Day: 0.5 Number of Years Smokin Frequency of Alcohol Use: None Hx Recreational Drug Use: No Drugs: None Hx Prescription Drug Abuse: No - Advance Directive Resuscitation Status: Full Code Family History Parental Family History Reviewed: Yes - negative for esrd Children Family History Reviewed: Yes Sibling(s) Family History Reviewed.: Yes Medication/Allergy Home Medications: B Complex & C No.20/Folic Acid [Virt-Caps Softgel] 1 mg PO DAILY 11/26/16 Escitalopram Oxalate [Lexapro] 20 mg PO DAILY 11/26/16 Pantoprazole Sodium [Protonix] 40 mg PO DAILY 11/26/16 Warfarin Sodium [Coumadin 7.5 mg Tablet] 7.5 mg PO SUTUTHSA PRN 11/26/16 Midodrine HCl [Proamatine 5 mg Tablet] 5 mg PO Q12 01/16/17 Aspirin [Aspirin EC] 81 mg PO DAILY 01/24/17 Atorvastatin Calcium [Lipitor 20 mg Tablet] 20 mg PO QHS 01/24/17 Metoprolol Succinate [Toprol Xl 50 mg Tab.sr] 50 mg PO Q12 01/24/17 Trazodone HCl [Desyrel 50 mg Tablet] 25 mg PO QHS 01/24/17 Warfarin Sodium [Coumadin 5 mg Tablet] 5 mg PO MOWEFR 01/24/17 Allergies/Adverse Reactions: Penicillins Allergy (Severe, Verified 01/16/17 10:56) Swelling of hands and/or feet vancomycin [Vancomycin] Adverse Reaction (Intermediate, Verified 01/16/17 10:56) Swelling of hands and/or feet hydrochlorothiazide [From Dyazide] Adverse Reaction (Verified 01/16/17 10:56) Swelling of hands and/or feet triamterene [From Dyazide] Adverse Reaction (Verified 01/16/17 10:56) Swelling of hands and/or feet Review of Systems Constitutional: PRESENT: fatigue, weakness. ABSENT: fever(s), headache(s), night sweats Cardiovascular: PRESENT: dyspnea on exertion. ABSENT: edema, orthropnea, palpitations Gastrointestinal: PRESENT: abdominal pain. ABSENT: constipation, diarrhea, dysphagia, heartburn, hematemesis, hematochezia, melena, nausea, vomiting Genitourinary: ABSENT: dysuria, hematuria Integumentary: ABSENT: lesions, pruritus Neurological: PRESENT: dizziness, weakness. ABSENT: confusion, convulsions, focal weakness, frequent falls, vertigo Endocrine: ABSENT: heat intolerance, polydipsia Hematologic/Lymphatic: ABSENT: easy bruising, lymphadenopathy Physical Exam Vital Signs: Temp Pulse Resp BP Pulse Ox 98.2 F 103 H 18 99/52 L 91 L 01/24/17 04:57 01/24/17 07:00 01/24/17 04:57 01/24/17 04:57 01/24/17 04:57 Intake & Output 01/23/17 01/24/17 01/25/17 06:59 06:59 06:59 Intake Total 40 Output Total 0 Balance 40 Weight 68.5 kg General appearance: PRESENT: no acute distress Eye exam: PRESENT: conjunctiva pink, EOMI, PERRLA. ABSENT: nystagmus, scleral icterus Ear exam: PRESENT: normal external ear exam Mouth exam: PRESENT: moist, neck supple Neck exam: ABSENT: lymphadenopathy, meningismus, tenderness, thyromegaly, tracheal deviation Respiratory exam: PRESENT: clear to auscultation kee. ABSENT: crackles, rhonchi Cardiovascular exam: PRESENT: irregular rhythm, +S1, +S2 GI/Abdominal exam: PRESENT: soft, tenderness - of epigastrium. ABSENT: diminished bowel sounds, distended Extremities exam: ABSENT: pedal edema Neurological exam: PRESENT: alert, awake, oriented to person, oriented to place Psychiatric exam: PRESENT: anxious Skin exam: ABSENT: cyanosis, mottled, rash Results Laboratory Results: 01/24/17 04:13 01/24/17 04:13 01/24/17 01/24/17 01/24/17 04:13 04:13 04:13 WBC 4.3 RBC 2.80 L Hgb 9.1 L Hct 29.1 L MCV 104 H MCH 32.6 MCHC 31.3 L RDW 18.7 H Plt Count 175 Seg Neutrophils % 60.3 Lymphocytes % 20.3 Monocytes % 13.7 H Eosinophils % 4.3 Basophils % 1.4 Absolute Neutrophils 2.6 Absolute Lymphocytes 0.9 Absolute Monocytes 0.6 Absolute Eosinophils 0.2 Absolute Basophils 0.1 VBG pH 7.27 L VBG pCO2 58.6 VBG HCO3 26.5 VBG Base Excess -1.1 Sodium 138.6 Potassium 4.1 Chloride 102 Carbon Dioxide 28 Anion Gap 9 BUN 27 H Creatinine 3.23 H Est GFR ( Amer) 17 L Est GFR (Non-Af Amer) 14 L Glucose 103 Calcium 8.8 01/24/17 04:13 Troponin I 0.021 Impressions: Chest X-Ray 01/23/17 17:19 IMPRESSION: CARDIAC ENLARGEMENT. VASCULAR CONGESTION. RIGHT BASILAR DENSITY WITH PLEURAL EFFUSION. GENERALLY IMPROVED COMPARED TO THE PRIOR STUDY. Abdomen/Pelvis CT 01/23/17 17:41 IMPRESSION: 1. GALLSTONES. NO CT FINDINGS OF ACUTE INFLAMMATION. 2. 3 X 4 CM CORTICAL CYST IN THE LEFT KIDNEY. 3. CARDIOMEGALY. MODERATE RIGHT PLEURAL EFFUSION WITH BASILAR ATELECTASIS. 4. NO OTHER SIGNIFICANT OR ACUTE PROCESS IN THE ABDOMEN OR PELVIS. Abdomen Ultrasound 01/23/17 19:01 IMPRESSION: 1. GALLSTONES. 2. CORTICAL CYST IN THE LEFT KIDNEY. 3. RIGHT PLEURAL EFFUSION. Assessment & Plan - Diagnosis (1) Abdominal pain Qualifiers: Abdominal location: unspecified location Qualified Code(s): R10.9 - Unspecified abdominal pain Is this a current diagnosis for this admission?: YesPlan: epigastric. Mild. H/o Dyspepsia. Chronic. Star Prevacid. (2) Near syncope Plan: Chronic low BP and has been started on Midodrine. However suspect compliance with her meds because very poor memory issues and lack of any family support. (3) Orthostatic hypotension Is this a current diagnosis for this admission?: YesPlan: Likely multi factorial. Chronic low BING with poor compliance with Midodrine, UF on Dialysis even though Christopher has been told to be very careful in removing any fluids unless there is evidence of fluid overload, Intermittent disintegration of her A. fib to produce rapid runs. (4) ESRD (end stage renal disease) on dialysis Is this a current diagnosis for this admission?: YesPlan: patient sen on dialysis whixh is being supervised to endsure safe and smooth procedure. She is in controlled a. fib now and BP is stable lying down. Will remove no fluid and may have to make her positive by 200 - 500 cc by end of treatment based on her vital signs etc. Discussed with treating RN. (5) Anemia Plan: For EPO. (6) Atrial fibrillation with RVR Plan: Controlled.Monitor. (7) Hypotension Qualifiers: Hypotension type: other hypotension type Qualified Code(s): I95.89 - Other hypotension Plan: Stable currently .Clinically dry.Monitor and will keep her positive on dialysis.
[2017-01-24] MEDS: HEPARIN SOD (PORCINE) 1,000 UNIT/ML 10 ML VIAL IV PRN ×2 (09:36→17:47)
[2017-01-24] MEDS: MIDODRINE HCL 5 MG TABLET PO SCH ×3 (10:05→16:39)
[2017-01-24] MEDS ORDERED: LORAZEPAM 1 MG TABLET PO PRN (12:33)
[2017-01-24] MEDS ORDERED: TRAZODONE HCL 50 MG TABLET PO PRN (12:33)
[2017-01-24] MEDS ORDERED: METOPROLOL SUCCINATE 25 MG TAB.SR.24H PO ONE (13:00)
[2017-01-24] MEDS: FERROUS SULFATE 325 MG TABLET PO SCH ×2 (13:01→17:48)
--- NOTE | 2017-01-24 15:29 | PROGRESS NOTE E ---
Progress Note NAME: TAMMY BUCKLEY : 1940 AGE: 76Y DATE: 01/24/2017 ROOM: 326 SUBJECTIVE: The patient has been seen twice today on rounds. The patient does admit to persistent nausea but denies any active vomiting. No diarrhea. No shortness of breath, dizziness, or chest pain. The patient describes an overwhelming weakness. The patient was noted to have positive orthostatics. She is tolerating dialysis well and without issue. The patient was noted to have a number of PVCs on the monitor. The patient does not voice any other concerns at this time. REVIEW OF SYSTEMS: Rest of the review of systems negative. MEDICATIONS: Have been reviewed. OBJECTIVE: GENERAL: The patient is a 76-year-old -[place] female who is awake and alert. She is oriented to person, place, time, and situation. She is verbal, conversational, and does not appear to be in any acute distress. VITAL SIGNS: Temperature 98.3, pulse 93, respirations 16, blood pressure is 95/66, oxygen saturation is 93% on 2 L nasal cannula. SKIN: Warm and dry. No rash. Not diaphoretic. HEENT: Pupils equal, round, reactive to light and accommodation. Conjunctivae are pink. No JVP. CARDIOVASCULAR: Heart is regular with no murmur or rub. CHEST: Clear, symmetrical, unlabored. ABDOMEN: Soft, nontender, nondistended. BACK: No CVA tenderness or sacral edema. EXTREMITIES: No clubbing, cyanosis, or edema. PSYCHIATRIC: Appropriate affect. Pleasant mood. DIAGNOSTICS: Lab values are as follows: Hematology obtained on 01/24/2017: WBCs are 4.3, hemoglobin is 10.1, hematocrit is 29.1, platelet count is 175,000. Chemistry obtained on 01/24/2017: Sodium is 138, potassium 4.1, chloride is 102, carbon dioxide 28, BUN 27, creatinine 3.32, glucose 103, calcium is 8.8. IMPRESSION AND PLAN: 1. ORTHOSTATIC HYPOTENSION AND PRESYNCOPE. The patient has had an episode of vomiting and decrease in oral intake. This could be due to just volume depletion. The patient will complete her dialysis treatment. Will resume midodrine and follow symptoms after that. Upon review of previous records, it appears that the patient consistently has blood pressures on the low side or at least labile. Will monitor and follow. 2. END-STAGE RENAL DISEASE WITH HEMODIALYSIS. The patient will dialyze today. Do appreciate Nephrology input with this. 3. NAUSEA WITH VOMITING. This apparently has improved to resolved, possibly a viral process. Will continue to follow. 4. ACIDOSIS. Upon review of the patient's previous records, it does look like she has a chronic acidosis, maybe a little worse given her vomiting or volume depletion. Will follow. 5. ATRIAL FIBRILLATION. Will continue the patient's beta val if systolic blood pressure is greater 90 and follow. 6. CHRONIC ANTICOAGULATION. The patient does have subtherapeutic INR. Will continue the patient's Coumadin and continue heparin drip for bridge. 7. ANEMIA OF CHRONIC DISEASE. The patient's hemoglobin overall is stable. 8. HISTORY OF PROSTHETIC AORTIC VALVE REPLACEMENT. Once again, INR has been therapeutic. Will continue heparin. 9. HISTORY OF PROSTHETIC MITRAL VALVE. 10. DIABETES MELLITUS TYPE 2. Blood glucose has been stable. Will continue current medications. 11. DVT PROPHYLAXIS. The patient is on a heparin drip. DISPOSITION: The patient is a FULL CODE. Pending patient's symptomatology and diagnostic findings, will reevaluate in the a.m. Time spent on this followup including assessment, plan, physical examination, patient education, and specialty collaboration is 35 minutes. DICTATING PHYSICIAN: KARINA ALAMO NP [id number] PHY#: [id number] ID: [id number] JOB#: [id number] ACCT: [id number] cc: >
[2017-01-24 16:25] LABS: HEMATOCRIT 28.8 % (36.0-47.0); HGB HCT DIFFERENCE -1.8; MEAN CORPUSCULAR HEMOGLOBIN 32.5 pg (27.0-33.4); MEAN CORPUSCULAR HGB CONC 31.1 g/dL (32.0-36.0); MEAN CORPUSCULAR VOLUME 105 fl (80-97); RED BLOOD COUNT 2.75 10^6/uL (3.72-5.28); RED CELL DISTRIBUTION WIDTH 18.3 % (11.5-14.0)
[2017-01-24] MEDS ORDERED: NORMAL SALINE 500 ML IV ONE (17:00)
[2017-01-24] MEDS ORDERED: METOPROLOL SUCCINATE 50 MG TAB.SR.24H PO SCH (18:00)
[2017-01-24] MEDS: ACETAMINOPHEN 325 MG TABLET PO PRN (18:36)
--- NOTE | 2017-01-24 20:56 | EKG REPORT ---
SEVERITY:- ABNORMAL ECG - ATRIAL FIBRILLATION, V-RATE 70-135 VENTRICULAR PREMATURE COMPLEX RIGHT BUNDLE BRANCH BLOCK LVH WITH SECONDARY REPOLARIZATION ABNORMALITY INFERIOR INFARCT, OLD : Confirmed by: Anusha Martines 24-Jan-2017 20:55:20
[2017-01-24 20:57] LABS: AMORPHOUS SEDIMENT,URINE TRACE /HPF; APPEARANCE,URINE CLOUDY; BILIRUBIN,URINE MODERATE (NEGATIVE); GLUCOSE, URINE NEGATIVE (NEGATIVE); KETONES,URINE NEGATIVE (NEGATIVE); LEUKOCYTE ESTERASE,URINE MODERATE (NEGATIVE); NITRITE,URINE NEGATIVE (NEGATIVE); PROTEIN,URINE 30 mg/dL (NEGATIVE); URINE SPECIFIC GRAVITY 1.023
[2017-01-24] MEDS ORDERED: DEXTROSE 50%-WATER 25 GM/50 ML DISP.SYRIN IV PRN ×2 (21:20)
[2017-01-24] MEDS ORDERED: INSULIN LISPRO 100 UNIT/ML 3 ML VIAL SUBCUT PRN (21:20)
[2017-01-24] MEDS ORDERED: DEXTROSE 40% GEL 15 GM TUBE PO PRN ×2 (21:20)
[2017-01-24] MEDS ORDERED: GLUCAGON,HUMAN RECOMB 1 MG INJ IM PRN (21:20)
[2017-01-24] MEDS ORDERED: INSULIN LISPRO 100 UNIT/ML 3 ML VIAL ONE (21:55)
[2017-01-24] MEDS ORDERED: METOPROLOL SUCCINATE 25 MG TAB.SR.24H PO SCH (22:00)
[2017-01-24] MEDS ORDERED: ATORVASTATIN CALCIUM 80 MG TABLET PO SCH (22:00)
[2017-01-24] MEDS: WARFARIN SODIUM 7.5 MG TABLET PO SCH (22:04)
[2017-01-24] MEDS ORDERED: NORMAL SALINE 1000 ML 250 ML IV ONE (22:15)
[2017-01-24] MEDS: METOPROLOL SUCCINATE 25 MG TAB.SR.24H PO SCH (22:29)
[2017-01-25] MEDS: HEPARIN SODIUM,PORCINE/D5W 250 ML IV PRN (04:01)
[2017-01-25 08:11] LABS: PROTHROMBIN TIME 15.3 SEC (11.4-15.4)
[2017-01-25 08:12] LABS: PARTIAL THROMBOPLASTIN TIME 63.1 SEC (23.5-35.8)
[2017-01-25 08:23] LABS: ANION GAP 8 (5-19); BLOOD UREA NITROGEN 26 mg/dL (7-20); CALCIUM 8.2 mg/dL (8.4-10.2); CARBON DIOXIDE 29 mmol/L (22-30); CHLORIDE 99 mmol/L (98-107); CREATININE RESULT 2.91 mg/dL (0.52-1.25); GLUCOSE 89 mg/dL (75-110); POTASSIUM 4.2 mmol/L (3.6-5.0); SODIUM 136.3 mmol/L (137-145)
[2017-01-25] MEDS: MIDODRINE HCL 5 MG TABLET PO SCH ×3 (09:16→18:49)
[2017-01-25] MEDS: METOPROLOL SUCCINATE 25 MG TAB.SR.24H PO SCH (09:16)
[2017-01-25] MEDS: LANSOPRAZOLE 30 MG TAB.RAP.DR PO SCH (09:16)
[2017-01-25] MEDS: ASPIRIN 81 MG TABLET, ENT COATED PO SCH (09:17)
[2017-01-25] MEDS: FERROUS SULFATE 325 MG TABLET PO SCH ×3 (09:18→18:50)
[2017-01-25] MEDS: ESCITALOPRAM OXALATE 10 MG TABLET PO SCH (09:18)
[2017-01-25] MEDS: FOLIC ACID/VITAMIN B COMP W-C CAPSULE PO SCH (09:18)
[2017-01-25] MEDS ORDERED: ASPIRIN 81 MG TABLET, ENT COATED PO SCH (10:00)
--- NOTE | 2017-01-25 12:54 | PROGRESS NOTE E ---
Progress Note NAME: TAMMY BUCKLEY : 1940 AGE: 76Y DATE: 01/25/2017 ROOM: 326 SUBJECTIVE: This patient is currently lying in bed. She states that she had felt much better today; however, at this time, her nausea has returned but no vomiting. The patient has had no diarrhea, no shortness of breath, dizziness or chest pain, no fevers or chills. The patient has been afebrile. Her blood pressures, overall, have improved and no longer orthostatic and the patient does not voice any other concerns at this time. REVIEW OF SYSTEMS: The rest of the review of systems are negative. MEDICATIONS: Have been reviewed. OBJECTIVE: GENERAL: The patient is a 76-year-old female who is awake, alert and oriented to person, place, time and situation. She is verbal conversational and does not appear to be in acute distress. VITAL SIGNS FOLLOWS: Temperature is 97.9, pulse 82, respirations 18, blood pressure 113/63, oxygen saturation 100% on 3 L nasal cannula. SKIN: Warm and dry, no rashes, not diaphoretic. HEENT: Pupils equal, round and reactive to light and accommodation. Conjunctivae: [place], no JVP. CARDIOVASCULAR: Heart is regular without murmurs or rubs. CHEST: Clear, symmetrical and unlabored. ABDOMEN: Soft, nontender, nondistended. BACK: No CVA tenderness or sacral edema. EXTREMITIES: No clubbing, cyanosis, or edema. PSYCHIATRIC: Appropriate affect, pleasant mood. DIAGNOSTIC DATA: Lab values are as follows: Hematology obtained on 01/24/2017: WBCs are 4.0, hemoglobin is 5.0, hematocrit is 28.8, platelet count is 174,000. Chemistry obtained on 01/25/2017: Sodium is 136, potassium 4.2, chloride 99, carbon dioxide 29, BUN 26, creatinine is 2.91, glucose 89, calcium is 8.2. IMPRESSION AND PLAN: 1. NAUSEA, VOMITING. MOST LIKELY A VIRAL GASTROENTERITIS. Overall much improved. The patient is no longer orthostatic. 2. HYPERTENSION is resolved. We will continue home medications and the patient is currently taking oral intake. If this should subside, we will resume fluids. 3. END-STAGE RENAL DISEASE ON DIALYSIS. I do appreciate Nephrology input with this. 4. ATRIAL FIBRILLATION. Continue the patient's home medications. 5. CHRONIC ANTICOAGULATION. The patient does have subtherapeutic INR. Continue heparin drip and follow. 6. ANEMIA OF CHRONIC DISEASE. Hemoglobin overall is stable. 7. HISTORY OF PROSTATIC AORTIC VALVE REPLACEMENT. Once again, INR is not therapeutic. Continue heparin drip. 8. DIABETES MELLITUS TYPE 2. Blood glucose is stable. Continue current medications. 9. DEEP VEIN THROMBOSIS. The patient is on a heparin drip. 10. HISTORY OF PROSTHETIC MITRAL VALVE. DISPOSITION: THE PATIENT IS A FULL CODE. Pending patient's symptomatology and diagnostic findings, we will reevaluate in the a.m. Time spent on this followup including assessment and plan, physical examination and patient education is 20 minutes. DICTATING PHYSICIAN: KARINA ALAMO NP [id number] PHY#: [id number] ID: [id number] JOB#: [id number] ACCT: [id number] cc: >
[2017-01-25] MEDS: WARFARIN SODIUM 7.5 MG TABLET PO SCH (21:57)
[2017-01-25] MEDS: ATORVASTATIN CALCIUM 20 MG TABLET PO SCH (21:57)
[2017-01-25] MEDS: METOPROLOL SUCCINATE 50 MG TAB.SR.24H PO SCH (21:57)
[2017-01-25] MEDS: TRAZODONE HCL 50 MG TABLET PO SCH (22:02)
[2017-01-26 05:05] LABS: PROTHROMBIN TIME 14.7 SEC (11.4-15.4)
[2017-01-26 05:07] LABS: PARTIAL THROMBOPLASTIN TIME 64.4 SEC (23.5-35.8)
[2017-01-26] MEDS: ACETAMINOPHEN 325 MG TABLET PO PRN (07:21)
[2017-01-26] MEDS: HEPARIN SODIUM,PORCINE/D5W 250 ML IV PRN (07:24)
[2017-01-26] MEDS: MIDODRINE HCL 5 MG TABLET PO SCH ×3 (09:56→18:21)
[2017-01-26] MEDS: ASPIRIN 81 MG TABLET, ENT COATED PO SCH (09:57)
[2017-01-26] MEDS: LANSOPRAZOLE 30 MG TAB.RAP.DR PO SCH (09:57)
[2017-01-26] MEDS: METOPROLOL SUCCINATE 50 MG TAB.SR.24H PO SCH ×2 (09:57→21:38)
[2017-01-26] MEDS: FOLIC ACID/VITAMIN B COMP W-C CAPSULE PO SCH (09:57)
[2017-01-26] MEDS: ESCITALOPRAM OXALATE 10 MG TABLET PO SCH (09:57)
[2017-01-26] MEDS: FERROUS SULFATE 325 MG TABLET PO SCH ×3 (09:58→18:21)
--- NOTE | 2017-01-26 10:18 | PROGRESS NOTE E ---
Progress Note NAME: TAMMY BUCKLEY : 1940 AGE: 76Y DATE: 01/26/2017 ROOM: 426 SUBJECTIVE: The patient is currently lying in bed. She states that she feels a little sleepy today, but her nausea and abdominal symptoms have completely resolved. The patient denies any shortness of breath, dizziness or chest pain, no fevers or chills. The patient has been afebrile. Her blood pressures have been in a good range and the patient does not voice any other concerns at this time. REVIEW OF SYSTEMS: The rest of the review of systems are negative. MEDICATIONS: Medications have been reviewed. OBJECTIVE: GENERAL: The patient is a 76-year-old female who is awake, alert and oriented to person, place, time and situation. She is verbal, conversational, and does not appear to be in any acute distress. VITAL SIGNS FOLLOWS: Temperature is 97.7, pulse 85, respirations 17, blood pressure 108/71, oxygen saturation is 100% on 2 liters nasal cannula. SKIN: Warm and dry, no rashes, not diaphoretic. HEENT: Pupils equal, round and reactive to light and accommodation. Conjunctivae are pink. The patient does have conjunctival hemorrhage, which has been present since admission, stable, no pain, no burning. Extraocular movements are intact. NECK: There is no JVP. CARDIOVASCULAR: Heart is regular without murmurs or rubs. CHEST: Clear, symmetrical and unlabored. ABDOMEN: Soft, nontender, nondistended. BACK: No CVA tenderness or sacral edema. EXTREMITIES: No clubbing, cyanosis, or edema. PSYCHIATRIC: Appropriate affect, pleasant mood. DIAGNOSTIC DATA: Lab values are as follows: Hematology obtained on 01/24/2017: WBCs are 12.0, hemoglobin is 9.0, hematocrit is 28.8, platelet count is 174,000. Chemistry obtained on 01/25/2017: Sodium is 136, potassium 4.2, chloride 99, carbon dioxide 29, BUN 26, creatinine is 2.91, glucose 89, calcium is 8.2. IMPRESSION AND PLAN: 1. NAUSEA, VOMITING. MOST LIKELY A VIRAL GASTROENTERITIS. This does appear to have resolved. The patient is no longer orthostatic. 2. HYPOTENSION. The patient is no longer orthostatic. This is resolved. Have continued the patient's home medications. 3. END-STAGE RENAL DISEASE ON HEMODIALYSIS. I do appreciate Nephrology input with this. 4. ATRIAL FIBRILLATION. Will continue the patient's home medication, currently rate controlled. 5. CHRONIC ANTICOAGULATION. The patient did have a subtherapeutic INR. Continue heparin drip for now. 6. ANEMIA OF CHRONIC DISEASE. Hemoglobin is overall stable. 7. DIABETES MELLITUS, TYPE 2. Blood glucose is stable. Will continue current regimen. 8. DEEP VEIN THROMBOSIS PROPHYLAXIS. Will continue heparin drip. 9. HISTORY OF PROSTHETIC AORTIC VALVE REPLACEMENT. INR is not therapeutic. Continue heparin drip. 10. HISTORY OF PROSTHETIC MITRAL VALVE REPLACEMENT. DISPOSITION: The patient is a FULL CODE. Pending patient's symptomatology and diagnostic findings, will reevaluate in the a.m. Time spent on this followup including assessment and plan, physical examination, and patient education is 20 minutes. DICTATING PHYSICIAN: KARINA ALAMO NP [id number] PHY#: [id number] ID: [id number] JOB#: [id number] ACCT: [id number] cc: >
[2017-01-26] MEDS ORDERED: TRAMADOL HCL 50 MG TABLET PO ONE (12:30)
[2017-01-26] MEDS: WARFARIN SODIUM 7.5 MG TABLET PO SCH (21:38)
[2017-01-26] MEDS: TRAZODONE HCL 50 MG TABLET PO SCH (21:38)
[2017-01-26] MEDS: ATORVASTATIN CALCIUM 20 MG TABLET PO SCH (21:38)
[2017-01-27] MEDS: HEPARIN SODIUM,PORCINE/D5W 250 ML IV PRN (05:39)
[2017-01-27 06:12] LABS: HEMATOCRIT 25.7 % (36.0-47.0); HEMOGLOBIN 8.2 g/dL (12.0-15.5); HGB HCT DIFFERENCE -1.1; MEAN CORPUSCULAR HEMOGLOBIN 32.6 pg (27.0-33.4); MEAN CORPUSCULAR HGB CONC 31.9 g/dL (32.0-36.0); MEAN CORPUSCULAR VOLUME 102 fl (80-97); RED BLOOD COUNT 2.52 10^6/uL (3.72-5.28); RED CELL DISTRIBUTION WIDTH 18.4 % (11.5-14.0); WHITE BLOOD COUNT 3.4 10^3/uL (4.0-10.5)
[2017-01-27 06:17] LABS: PROTHROMBIN TIME 17.2 SEC (11.4-15.4)
[2017-01-27 06:18] LABS: PARTIAL THROMBOPLASTIN TIME 68.8 SEC (23.5-35.8)
[2017-01-27 06:27] LABS: ANION GAP 11 (5-19); BLOOD UREA NITROGEN 45 mg/dL (7-20); CALCIUM 8.4 mg/dL (8.4-10.2); CARBON DIOXIDE 25 mmol/L (22-30); CHLORIDE 96 mmol/L (98-107); GLUCOSE 89 mg/dL (75-110); PHOSPHORUS 5.8 mg/dL (2.5-4.5); POTASSIUM 4.7 mmol/L (3.6-5.0); SODIUM 132.1 mmol/L (137-145)
[2017-01-27] MEDS: MIDODRINE HCL 5 MG TABLET PO SCH ×3 (08:00→17:27)
[2017-01-27] MEDS ORDERED: EPOETIN ALFA INJ 20000 UNIT/1 ML VIAL (RENAL) IV PRN (09:24)
[2017-01-27] MEDS: ESCITALOPRAM OXALATE 10 MG TABLET PO SCH (12:41)
[2017-01-27] MEDS: METOPROLOL SUCCINATE 50 MG TAB.SR.24H PO SCH ×2 (12:41→21:26)
[2017-01-27] MEDS: LANSOPRAZOLE 30 MG TAB.RAP.DR PO SCH (12:42)
[2017-01-27] MEDS: FOLIC ACID/VITAMIN B COMP W-C CAPSULE PO SCH (12:50)
--- NOTE | 2017-01-27 13:42 | PDOC PROGRESS REPORT ---
Subjective Progress Note for:: 01/27/17 Subjective:: Patient seen today on HD.She is generally feeling better. Denies dyspnea. chest pains, fever or chills.Labs and meds reviewed. Physical Exam Vital Signs: Temp Pulse Resp BP Pulse Ox 98.3 F 80 20 90/54 L 94 01/27/17 12:38 01/27/17 12:38 01/27/17 12:38 01/27/17 12:38 01/27/17 12:38 Intake & Output 01/26/17 01/27/17 01/28/17 06:59 06:59 06:59 Intake Total 1150 576 Output Total 20 2100 Balance 1130 576 -2100 Weight 68.5 kg General appearance: PRESENT: no acute distress Respiratory exam: PRESENT: clear to auscultation kee, crackles, decreased breath sounds. ABSENT: rhonchi Cardiovascular exam: PRESENT: irregular rhythm, +S1, +S2 GI/Abdominal exam: PRESENT: soft, tenderness - of epigastrium. ABSENT: diminished bowel sounds, distended Extremities exam: PRESENT: +1 edema Neurological exam: PRESENT: alert, awake, oriented to person, oriented to place Results Laboratory Results: 01/27/17 05:23 01/27/17 05:23 01/27/17 01/27/17 05:23 05:23 WBC 3.4 L RBC 2.52 L Hgb 8.2 L Hct 25.7 L MCV 102 H MCH 32.6 MCHC 31.9 L RDW 18.4 H Plt Count 202 Sodium 132.1 L Potassium 4.7 Chloride 96 L Carbon Dioxide 25 Anion Gap 11 BUN 45 H Creatinine 4.20 H Est GFR ( Amer) 12 L Est GFR (Non-Af Amer) 10 L Glucose 89 Calcium 8.4 Phosphorus 5.8 H Magnesium 2.0 Impressions: Chest X-Ray 01/23/17 17:19 IMPRESSION: CARDIAC ENLARGEMENT. VASCULAR CONGESTION. RIGHT BASILAR DENSITY WITH PLEURAL EFFUSION. GENERALLY IMPROVED COMPARED TO THE PRIOR STUDY. Abdomen/Pelvis CT 01/23/17 17:41 IMPRESSION: 1. GALLSTONES. NO CT FINDINGS OF ACUTE INFLAMMATION. 2. 3 X 4 CM CORTICAL CYST IN THE LEFT KIDNEY. 3. CARDIOMEGALY. MODERATE RIGHT PLEURAL EFFUSION WITH BASILAR ATELECTASIS. 4. NO OTHER SIGNIFICANT OR ACUTE PROCESS IN THE ABDOMEN OR PELVIS. Abdomen Ultrasound 01/23/17 19:01 IMPRESSION: 1. GALLSTONES. 2. CORTICAL CYST IN THE LEFT KIDNEY. 3. RIGHT PLEURAL EFFUSION. Assessment & Plan - Diagnosis (1) Abdominal pain Qualifiers: Abdominal location: unspecified location Qualified Code(s): R10.9 - Unspecified abdominal pain Is this a current diagnosis for this admission?: Yes (3) Orthostatic hypotension Is this a current diagnosis for this admission?: YesPlan: Likely multi factorial. Chronic low BP with poor compliance with Midodrine.Still on lo normal. Monitor. (4) ESRD (end stage renal disease) on dialysis Is this a current diagnosis for this admission?: YesPlan: patient seen on dialysis which is being supervised to ensure safe and smooth procedure. She is in controlled a. fib now and BP is stable lying down. Will remove 1-2 L as tolerated. Discussed with treating RN. (5) Anemia Plan: Has dropped a gram in last 1 day.Has black tarry stools which was hemoccult positive. This could be from hemodilution but need to consider strongly of it being a UGI bleed especially so as she is on ASA, Coumadin and IV Heparin. Discussed with Omkar Felton about keeping a close look on her and monitoring closely for any drop in HB and a GI consult. If this is due to dilution her Hb should rise post HD and UF. (6) Atrial fibrillation with RVR Plan: Controlled.Monitor. (7) Hypotension Qualifiers: Hypotension type: other hypotension type Qualified Code(s): I95.89 - Other hypotension Plan: Stable currently.
[2017-01-27 14:19] LABS: HEMATOCRIT 30.3 % (36.0-47.0); HEMOGLOBIN 9.5 g/dL (12.0-15.5); HGB HCT DIFFERENCE -1.8; MEAN CORPUSCULAR HEMOGLOBIN 32.3 pg (27.0-33.4); MEAN CORPUSCULAR HGB CONC 31.2 g/dL (32.0-36.0); MEAN CORPUSCULAR VOLUME 103 fl (80-97); RED BLOOD COUNT 2.93 10^6/uL (3.72-5.28); RED CELL DISTRIBUTION WIDTH 18.2 % (11.5-14.0); WHITE BLOOD COUNT 2.9 10^3/uL (4.0-10.5)
--- NOTE | 2017-01-27 14:44 | PROGRESS NOTE E ---
Progress Note NAME: TAMMY BUCKLEY : 1940 AGE: 76Y DATE: 01/27/2017 ROOM: 426 SUBJECTIVE: The patient was seen earlier today on dialysis. The patient states that she still does not feel well, describes herself as weak. The patient apparently has had some dark stools overnight. However, she is on ferrous sulfate and has been receiving it. The patient's hypotension has appeared to have resolved. She is currently tolerating her dialysis procedure. I discussed the case with Dr. Nelson, who is concerned about the patient's drop in hemoglobin. The patient's hemoglobin on 01/24/2017 was 9.0. However, today, she was found to be 8.2 with a positive guaiac. I have reviewed the patient's previous records. It appears that she has had a positive guaiac every contact with hospital since 2012. The patient was evaluated by Dr. Putnam last year and actually had upper and lower endoscopies. Findings were consistent with a small bowel bleed, as it was noted to have stigmata at the terminal ileum. The patient unfortunately has required chronic anticoagulation for aortic valve as well as atrial fibrillation. The patient's INR was subtherapeutic on admission and she has been on a heparin drip as well as Coumadin as well as aspirin. The patient is not tachycardic at this time. No other concerns are voiced at this time. REVIEW OF SYSTEMS: The rest of the review of systems is negative. MEDICATIONS: Medications have been reviewed. OBJECTIVE: GENERAL: The patient is a 76-year-old who is awake, alert, and oriented to person, place, time, and situation. She is verbal and conversational and does not appear to be in any acute distress. VITAL SIGNS: Temperature is 98.5, pulse 56, respirations 18, blood pressure is 103/65, oxygen saturation is 99% on 2 L nasal cannula. SKIN: Warm and dry. No rash. She is not diaphoretic. HEENT: Pupils equal, round, and reactive to light and accommodation. Conjunctivae pink. NECK: The patient does have subconjunctival hemorrhage, which was present on admission, but it is stable, asymptomatic. CARDIOVASCULAR SYSTEM: Heart is regular. There is no murmur or rub. CHEST: Clear, symmetrical, unlabored. ABDOMEN: Soft, nontender, and nondistended. BACK: No CVA tenderness or sacral edema. EXTREMITIES: No clubbing, cyanosis, edema. PSYCHIATRIC: Appropriate affect, pleasant mood. DIAGNOSTIC DATA: Lab values are as follows: Hematology obtained on 01/27/2017. WBCs are 3.4, hemoglobin is 7.2, hematocrit is 25.7, platelet count is 202,000. Coagulation obtained on 01/27/2017: PT is 7.2, INR is 1.32. Chemistries obtained on 01/27/2017: Sodium is 132, potassium is 4.7, chloride is 97, carbon dioxide 25, BUN 45, creatinine is 4.2. Glucose 89, calcium is 8.4, phosphorus 5.8, magnesium is 2.0. IMPRESSION AND PLAN: 1. NAUSEA AND VOMITING. FEEL THIS IS LIKELY DUE TO GASTROENTERITIS. THE PATIENT'S SYMPTOMS HAVE APPARENTLY RESOLVED. SHE IS NO LONGER ORTHOSTATIC AND IS TOLERATING HER MEALS. 2. ORTHOSTATIC HYPOTENSION. ONCE AGAIN, THIS IMPROVED. The patient was hydrated, will continue current medication. 3. END-STAGE RENAL DISEASE, ON HEMODIALYSIS. Do appreciate Nephrology's input with this. 4. DROP IN HEMOGLOBIN. CONCERN FOR POSSIBLE UNDERLYING GI BLEED, GIVEN THE PATIENT'S PRIOR SMALL BOWEL BLEED. Given the patient's aortic issues, may likely have anterior dysplasias. Regardless, will obtain q-4-hour CBC's. Do expect hemoglobin to rise given that she is being dialyzed and will discuss the case with surgery and follow. 5. ATRIAL FIBRILLATION. The patient is currently rate controlled. 6. CHRONIC ANTICOAGULATION. Will hold Coumadin for now. Continue heparin drip because the patient has an aortic valve; however, have stopped the aspirin as well. 7. ANEMIA OF CHRONIC DISEASE. Will monitor hemoglobin closely. 8. DIABETES MELLITUS TYPE 2. Blood glucose is stable. Will continue current regimen. 9. DVT PROPHYLAXIS. Patient on a heparin drip. 10. HISTORY OF PROSTHETIC AORTIC VALVE REPLACEMENT. 11. HISTORY OF PROSTHETIC MITRAL VALVE REPLACEMENT. DISPOSITION: The patient is a FULL CODE. Pending the patient's symptomatology and diagnostic findings, will reevaluate in the a.m. TIME: Time spent on this followup including assessment, plan, physical examination, patient education, speciality collaboration was 35 minutes. DICTATING PHYSICIAN: KARINA ALAMO NP [id number] PHY#: [id number] ID: [id number] JOB#: [id number] ACCT: [id number] cc: > SEBASD
[2017-01-27] MEDS ORDERED: LACTULOSE SYRUP 20 GM/30 ML UDCUP PO PRN (16:07)
[2017-01-27] MEDS ORDERED: LACTULOSE SYRUP 20 GM/30 ML UDCUP PO ONE (16:30)
[2017-01-27 18:05] LABS: HEMATOCRIT 27.8 % (36.0-47.0); HEMOGLOBIN 8.9 g/dL (12.0-15.5); HGB HCT DIFFERENCE -1.1; MEAN CORPUSCULAR HEMOGLOBIN 32.5 pg (27.0-33.4); MEAN CORPUSCULAR HGB CONC 31.9 g/dL (32.0-36.0); MEAN CORPUSCULAR VOLUME 102 fl (80-97); RED BLOOD COUNT 2.72 10^6/uL (3.72-5.28); RED CELL DISTRIBUTION WIDTH 18.1 % (11.5-14.0); WHITE BLOOD COUNT 3.7 10^3/uL (4.0-10.5)
[2017-01-27] MEDS: WARFARIN SODIUM 7.5 MG TABLET PO SCH (21:24)
[2017-01-27] MEDS: TRAZODONE HCL 50 MG TABLET PO SCH (21:24)
[2017-01-27] MEDS: ATORVASTATIN CALCIUM 20 MG TABLET PO SCH (21:25)
[2017-01-27 23:00] LABS: HEMATOCRIT 28.1 % (36.0-47.0); HEMOGLOBIN 8.8 g/dL (12.0-15.5); HGB HCT DIFFERENCE -1.7; MEAN CORPUSCULAR HEMOGLOBIN 32.2 pg (27.0-33.4); MEAN CORPUSCULAR HGB CONC 31.3 g/dL (32.0-36.0); MEAN CORPUSCULAR VOLUME 103 fl (80-97); RED BLOOD COUNT 2.73 10^6/uL (3.72-5.28); RED CELL DISTRIBUTION WIDTH 18.2 % (11.5-14.0); WHITE BLOOD COUNT 3.1 10^3/uL (4.0-10.5)
[2017-01-28 01:05] LABS: HEMATOCRIT 26.5 % (36.0-47.0); HEMOGLOBIN 8.3 g/dL (12.0-15.5); HGB HCT DIFFERENCE -1.6; MEAN CORPUSCULAR HEMOGLOBIN 32.2 pg (27.0-33.4); MEAN CORPUSCULAR HGB CONC 31.4 g/dL (32.0-36.0); MEAN CORPUSCULAR VOLUME 102 fl (80-97); RED BLOOD COUNT 2.59 10^6/uL (3.72-5.28); RED CELL DISTRIBUTION WIDTH 17.6 % (11.5-14.0)
[2017-01-28] MEDS: LORAZEPAM 1 MG TABLET PO PRN ×3 (03:35→22:30)
[2017-01-28 05:21] LABS: HEMATOCRIT 26.1 % (36.0-47.0); HEMOGLOBIN 8.3 g/dL (12.0-15.5); HGB HCT DIFFERENCE -1.2; MEAN CORPUSCULAR HEMOGLOBIN 32.6 pg (27.0-33.4); MEAN CORPUSCULAR HGB CONC 31.7 g/dL (32.0-36.0); MEAN CORPUSCULAR VOLUME 103 fl (80-97); RED BLOOD COUNT 2.55 10^6/uL (3.72-5.28); RED CELL DISTRIBUTION WIDTH 17.9 % (11.5-14.0); WHITE BLOOD COUNT 3.4 10^3/uL (4.0-10.5)
[2017-01-28 05:34] LABS: PROTHROMBIN TIME 17.6 SEC (11.4-15.4)
[2017-01-28 05:35] LABS: PARTIAL THROMBOPLASTIN TIME 76.1 SEC (23.5-35.8)
[2017-01-28] MEDS: MIDODRINE HCL 5 MG TABLET PO SCH ×3 (10:07→17:14)
[2017-01-28] MEDS: ESCITALOPRAM OXALATE 10 MG TABLET PO SCH (10:07)
[2017-01-28] MEDS: LANSOPRAZOLE 30 MG TAB.RAP.DR PO SCH (10:07)
[2017-01-28] MEDS: METOPROLOL SUCCINATE 50 MG TAB.SR.24H PO SCH ×2 (10:11→21:31)
[2017-01-28] MEDS: FOLIC ACID/VITAMIN B COMP W-C CAPSULE PO SCH (10:12)
[2017-01-28] MEDS ORDERED: WARFARIN SODIUM 7.5 MG TABLET PO ONE (10:30)
[2017-01-28] MEDS: HEPARIN SODIUM,PORCINE/D5W 250 ML IV PRN (11:04)
--- NOTE | 2017-01-28 15:03 | PDOC PROGRESS REPORT ---
Subjective Progress Note for:: 01/28/17 Subjective:: Patient is seen on morning rounds. She is resting comfortably in bed. She denies any shortness of breath, dyspnea or chest pain. She denies any nausea, vomiting or diarrhea. She remains on IV Heparin due to subtherapeutic INR. Rest of the review of systems is negative Physical Exam Vital Signs: Temp Pulse Resp BP Pulse Ox 98.8 F 80 15 105/78 97 01/28/17 11:39 01/28/17 11:39 01/28/17 11:39 01/28/17 11:39 01/28/17 11:39 Intake & Output 01/27/17 01/28/17 01/29/17 06:59 06:59 06:59 Intake Total 576 1240 510 Output Total 2100 Balance 576 -860 510 Weight 68.5 kg 70.6 kg General appearance: PRESENT: no acute distress, thin, well-developed, well- nourished Head exam: PRESENT: atraumatic Eye exam: PRESENT: conjunctiva pale, EOMI, PERRLA. ABSENT: scleral icterus Ear exam: PRESENT: normal external ear exam Mouth exam: PRESENT: moist, tongue midline Neck exam: ABSENT: carotid bruit, JVD, lymphadenopathy, thyromegaly Respiratory exam: PRESENT: clear to auscultation kee. ABSENT: rales, rhonchi, wheezes Cardiovascular exam: PRESENT: irregular rhythm, +S1, +S2, systolic murmur - 3/6 Pulses: PRESENT: normal dorsalis pedis pul Vascular exam: PRESENT: normal capillary refill GI/Abdominal exam: PRESENT: normal bowel sounds, soft. ABSENT: distended, guarding, mass, organolmegaly, rebound, tenderness Rectal exam: PRESENT: deferred Extremities exam: PRESENT: full ROM. ABSENT: calf tenderness, clubbing, pedal edema Neurological exam: PRESENT: alert, awake, oriented to person, oriented to place , oriented to time, oriented to situation, CN II-XII grossly intact. ABSENT: motor sensory deficit Psychiatric exam: PRESENT: appropriate affect, normal mood. ABSENT: homicidal ideation, suicidal ideation Skin exam: PRESENT: dry, intact, warm. ABSENT: cyanosis, rash Results Laboratory Results: 01/28/17 05:10 01/27/17 05:23 01/27/17 01/27/17 01/28/17 17:47 22:50 00:45 WBC 3.7 L 3.1 L 3.0 L RBC 2.72 L 2.73 L 2.59 L Hgb 8.9 L 8.8 L 8.3 L Hct 27.8 L 28.1 L 26.5 L MCV 102 H 103 H 102 H MCH 32.5 32.2 32.2 MCHC 31.9 L 31.3 L 31.4 L RDW 18.1 H 18.2 H 17.6 H Plt Count 182 188 174 01/28/17 05:10 WBC 3.4 L RBC 2.55 L Hgb 8.3 L Hct 26.1 L MCV 103 H MCH 32.6 MCHC 31.7 L RDW 17.9 H Plt Count 178 Impressions: Chest X-Ray 01/23/17 17:19 IMPRESSION: CARDIAC ENLARGEMENT. VASCULAR CONGESTION. RIGHT BASILAR DENSITY WITH PLEURAL EFFUSION. GENERALLY IMPROVED COMPARED TO THE PRIOR STUDY. Abdomen/Pelvis CT 01/23/17 17:41 IMPRESSION: 1. GALLSTONES. NO CT FINDINGS OF ACUTE INFLAMMATION. 2. 3 X 4 CM CORTICAL CYST IN THE LEFT KIDNEY. 3. CARDIOMEGALY. MODERATE RIGHT PLEURAL EFFUSION WITH BASILAR ATELECTASIS. 4. NO OTHER SIGNIFICANT OR ACUTE PROCESS IN THE ABDOMEN OR PELVIS. Abdomen Ultrasound 01/23/17 19:01 IMPRESSION: 1. GALLSTONES. 2. CORTICAL CYST IN THE LEFT KIDNEY. 3. RIGHT PLEURAL EFFUSION. Assessment & Plan - Diagnosis (1) Abdominal pain Qualifiers: Abdominal location: unspecified location Qualified Code(s): R10.9 - Unspecified abdominal pain Is this a current diagnosis for this admission?: YesPlan: Resolved. Likely secondary to gastroenteritis, which is now resolved (2) Orthostatic hypotension Is this a current diagnosis for this admission?: YesPlan: Improved. Continue minodrine (3) Subtherapeutic international normalized ratio (INR) Is this a current diagnosis for this admission?: YesPlan: Increase warfarin dose to 10 mg this evening . Continue IV heparin (4) Combined systolic and diastolic congestive heart failure Qualifiers: Congestive heart failure chronicity: acute on chronic Qualified Code (s): I50.43 - Acute on chronic combined systolic (congestive) and diastolic ( congestive) heart failure Is this a current diagnosis for this admission?: YesPlan: Now euvolemic after dialysis. Will continue to monitor (5) ESRD (end stage renal disease) on dialysis Is this a current diagnosis for this admission?: Yes (6) Anemia Qualifiers: Chronic kidney disease stage: on chronic dialysis Is this a current diagnosis for this admission?: YesPlan: On dialysis three times weekly. Dr Nelson is following (7) Atrial fibrillation Qualifiers: Atrial fibrillation type: chronic Qualified Code(s): I48.2 - Chronic atrial fibrillation Is this a current diagnosis for this admission?: Yes (8) H/O prosthetic mitral valve Is this a current diagnosis for this admission?: YesPlan: Continue IV heparin. Increase warfarin (9) H/O prosthetic aortic valve replacement Is this a current diagnosis for this admission?: YesPlan: Continue heparin. Increase warfarin - Time Time Spent with patient: 25-34 minutes Critical Time spent with patient: 15-24 minutes Medications reviewed and adjusted accordingly: Yes Anticipated discharge: Home with Homehealth
[2017-01-28] MEDS: WARFARIN SODIUM 7.5 MG TABLET PO SCH (21:28)
[2017-01-28] MEDS: ATORVASTATIN CALCIUM 20 MG TABLET PO SCH (21:29)
[2017-01-28] MEDS: TRAZODONE HCL 50 MG TABLET PO SCH (21:29)
[2017-01-29 06:31] LABS: ABSOLUTE EOSINOPHILS # (AUTO) 0.3 10^3/uL (0.0-0.6); ABSOLUTE LYMPHOCYTES (AUTO) 0.8 10^3/uL (0.5-4.7); ABSOLUTE MONOCYTES (AUTO) 0.6 10^3/uL (0.1-1.4); ABSOLUTE NEUT (AUTO) 1.7 10^3/uL (1.7-8.2); BASOPHILS % (AUTO) 1.3 % (0-2); EOSINOPHILS % (AUTO) 8.7 % (0-6); HEMATOCRIT 25.2 % (36.0-47.0); HEMOGLOBIN 8.3 g/dL (12.0-15.5); HGB HCT DIFFERENCE -0.3; LYMPHOCYTES % (AUTO) 22.4 % (13-45); MEAN CORPUSCULAR HEMOGLOBIN 32.8 pg (27.0-33.4); MEAN CORPUSCULAR HGB CONC 32.8 g/dL (32.0-36.0); MEAN CORPUSCULAR VOLUME 100 fl (80-97); MONOCYTES % (AUTO) 17.2 % (3-13); RED BLOOD COUNT 2.52 10^6/uL (3.72-5.28); RED CELL DISTRIBUTION WIDTH 17.6 % (11.5-14.0); SEGMENTED NEUTROPHILS % (AUTO) 50.4 % (42-78); WHITE BLOOD COUNT 3.4 10^3/uL (4.0-10.5)
[2017-01-29 06:32] LABS: PROTHROMBIN TIME 22.5 SEC (11.4-15.4)
[2017-01-29 06:55] LABS: ANION GAP 9 (5-19); BLOOD UREA NITROGEN 35 mg/dL (7-20); CALCIUM 8.8 mg/dL (8.4-10.2); CARBON DIOXIDE 29 mmol/L (22-30); CHLORIDE 95 mmol/L (98-107); CREATININE RESULT 3.89 mg/dL (0.52-1.25); GLUCOSE 104 mg/dL (75-110); SODIUM 132.7 mmol/L (137-145)
[2017-01-29 07:01] LABS: POTASSIUM 4.3 mmol/L (3.6-5.0)
[2017-01-29] MEDS ORDERED: EPOETIN ALFA INJ 20000 UNIT/1 ML VIAL (RENAL) IV PRN (10:11)
[2017-01-29] MEDS ORDERED: HEPARIN SOD (PORCINE) 1,000 UNIT/ML 10 ML VIAL IV PRN (10:14)
[2017-01-29] MEDS: LANSOPRAZOLE 30 MG TAB.RAP.DR PO SCH (12:37)
[2017-01-29] MEDS: METOPROLOL SUCCINATE 50 MG TAB.SR.24H PO SCH ×2 (12:37→22:01)
[2017-01-29] MEDS: MIDODRINE HCL 5 MG TABLET PO SCH ×3 (12:37→18:04)
[2017-01-29] MEDS: ESCITALOPRAM OXALATE 10 MG TABLET PO SCH (12:37)
[2017-01-29] MEDS: FOLIC ACID/VITAMIN B COMP W-C CAPSULE PO SCH (12:49)
[2017-01-29] MEDS: HEPARIN SODIUM,PORCINE/D5W 250 ML IV PRN (14:16)
--- NOTE | 2017-01-29 15:05 | PDOC PROGRESS REPORT ---
Subjective Progress Note for:: 01/29/17 Subjective:: Patient is seen on morning rounds. She is resting comfortably in bed. She denies any shortness of breath, dyspnea or chest pain. She denies any nausea, vomiting or diarrhea. She remains on IV Heparin due to subtherapeutic INR, which is closer to therapeutic dose. Rest of the review of systems is negative Physical Exam Vital Signs: Temp Pulse Resp BP Pulse Ox 98.7 F 102 H 18 112/61 95 01/29/17 12:58 01/29/17 12:58 01/29/17 12:58 01/29/17 12:58 01/29/17 12:58 Intake & Output 01/28/17 01/29/17 01/30/17 06:59 06:59 06:59 Intake Total 1240 960 Output Total 2100 0 Balance -860 960 Weight 70.6 kg 72.6 kg General appearance: PRESENT: no acute distress, well-developed, well-nourished Head exam: PRESENT: atraumatic, normocephalic Eye exam: PRESENT: conjunctiva pink, EOMI, PERRLA. ABSENT: scleral icterus Ear exam: PRESENT: normal external ear exam Mouth exam: PRESENT: moist, tongue midline Neck exam: ABSENT: carotid bruit, JVD, lymphadenopathy, thyromegaly Respiratory exam: PRESENT: clear to auscultation kee, symmetrical, unlabored. ABSENT: rales, rhonchi, wheezes Cardiovascular exam: PRESENT: irregular rhythm, +S1, +S2, systolic murmur Pulses: PRESENT: normal dorsalis pedis pul Vascular exam: PRESENT: normal capillary refill GI/Abdominal exam: PRESENT: normal bowel sounds, soft. ABSENT: distended, guarding, mass, organolmegaly, rebound, tenderness Rectal exam: PRESENT: deferred Extremities exam: PRESENT: full ROM. ABSENT: calf tenderness, clubbing, pedal edema Neurological exam: PRESENT: alert, awake, oriented to person, oriented to place , oriented to time, oriented to situation, CN II-XII grossly intact. ABSENT: motor sensory deficit Psychiatric exam: PRESENT: appropriate affect, normal mood. ABSENT: homicidal ideation, suicidal ideation Skin exam: PRESENT: dry, intact, warm. ABSENT: cyanosis, rash Results Laboratory Results: 01/29/17 06:11 01/29/17 06:11 01/29/17 01/29/17 06:11 06:11 WBC 3.4 L RBC 2.52 L Hgb 8.3 L Hct 25.2 L MCV 100 H MCH 32.8 MCHC 32.8 RDW 17.6 H Plt Count 191 Seg Neutrophils % 50.4 Lymphocytes % 22.4 Monocytes % 17.2 H Eosinophils % 8.7 H Basophils % 1.3 Absolute Neutrophils 1.7 Absolute Lymphocytes 0.8 Absolute Monocytes 0.6 Absolute Eosinophils 0.3 Absolute Basophils 0.0 Sodium 132.7 L Potassium 4.3 Chloride 95 L Carbon Dioxide 29 Anion Gap 9 BUN 35 H Creatinine 3.89 H Est GFR ( Amer) 14 L Est GFR (Non-Af Amer) 11 L Glucose 104 Calcium 8.8 Impressions: Chest X-Ray 01/23/17 17:19 IMPRESSION: CARDIAC ENLARGEMENT. VASCULAR CONGESTION. RIGHT BASILAR DENSITY WITH PLEURAL EFFUSION. GENERALLY IMPROVED COMPARED TO THE PRIOR STUDY. Abdomen/Pelvis CT 01/23/17 17:41 IMPRESSION: 1. GALLSTONES. NO CT FINDINGS OF ACUTE INFLAMMATION. 2. 3 X 4 CM CORTICAL CYST IN THE LEFT KIDNEY. 3. CARDIOMEGALY. MODERATE RIGHT PLEURAL EFFUSION WITH BASILAR ATELECTASIS. 4. NO OTHER SIGNIFICANT OR ACUTE PROCESS IN THE ABDOMEN OR PELVIS. Abdomen Ultrasound 01/23/17 19:01 IMPRESSION: 1. GALLSTONES. 2. CORTICAL CYST IN THE LEFT KIDNEY. 3. RIGHT PLEURAL EFFUSION. Assessment & Plan - Diagnosis (1) Abdominal pain Qualifiers: Abdominal location: unspecified location Qualified Code(s): R10.9 - Unspecified abdominal pain Is this a current diagnosis for this admission?: YesPlan: Resolved. Likely secondary to gastroenteritis, which is now resolved (2) Orthostatic hypotension Is this a current diagnosis for this admission?: YesPlan: Improved. Continue minodrine (3) Subtherapeutic international normalized ratio (INR) Is this a current diagnosis for this admission?: YesPlan: Increase warfarin dose to 10 mg this evening . Continue IV heparin (4) Combined systolic and diastolic congestive heart failure Qualifiers: Congestive heart failure chronicity: acute on chronic Qualified Code (s): I50.43 - Acute on chronic combined systolic (congestive) and diastolic ( congestive) heart failure Is this a current diagnosis for this admission?: YesPlan: Now euvolemic after dialysis. Will continue to monitor (5) ESRD (end stage renal disease) on dialysis Is this a current diagnosis for this admission?: Yes (6) Anemia Qualifiers: Chronic kidney disease stage: on chronic dialysis Is this a current diagnosis for this admission?: YesPlan: On dialysis three times weekly. Dr Nelson is following (7) Atrial fibrillation Qualifiers: Atrial fibrillation type: chronic Qualified Code(s): I48.2 - Chronic atrial fibrillation Is this a current diagnosis for this admission?: Yes (8) H/O prosthetic mitral valve Is this a current diagnosis for this admission?: YesPlan: Continue IV heparin. Increase warfarin (9) H/O prosthetic aortic valve replacement Is this a current diagnosis for this admission?: YesPlan: Continue heparin. Increase warfarin - Time Time Spent with patient: 25-34 minutes Critical Time spent with patient: 15-24 minutes Medications reviewed and adjusted accordingly: Yes Anticipated discharge: Home with Homehealth Within: within 24 hours
--- NOTE | 2017-01-29 15:28 | PDOC PROGRESS REPORT ---
Subjective Progress Note for:: 01/29/17 Subjective:: Patient seen today on HD.She is generally feeling better. Denies dyspnea. chest pains, fever or chills.Labs and meds reviewed. Physical Exam Vital Signs: Temp Pulse Resp BP Pulse Ox 98.7 F 102 H 18 112/61 95 01/29/17 12:58 01/29/17 12:58 01/29/17 12:58 01/29/17 12:58 01/29/17 12:58 Intake & Output 01/28/17 01/29/17 01/30/17 06:59 06:59 06:59 Intake Total 1240 960 Output Total 2100 0 Balance -860 960 Weight 70.6 kg 72.6 kg General appearance: PRESENT: no acute distress Respiratory exam: PRESENT: clear to auscultation kee. ABSENT: crackles, rhonchi Cardiovascular exam: PRESENT: irregular rhythm, +S1, +S2 GI/Abdominal exam: PRESENT: soft, tenderness - of epigastrium. ABSENT: diminished bowel sounds, distended Extremities exam: ABSENT: pedal edema Results Laboratory Results: 01/29/17 06:11 01/29/17 06:11 01/29/17 01/29/17 06:11 06:11 WBC 3.4 L RBC 2.52 L Hgb 8.3 L Hct 25.2 L MCV 100 H MCH 32.8 MCHC 32.8 RDW 17.6 H Plt Count 191 Seg Neutrophils % 50.4 Lymphocytes % 22.4 Monocytes % 17.2 H Eosinophils % 8.7 H Basophils % 1.3 Absolute Neutrophils 1.7 Absolute Lymphocytes 0.8 Absolute Monocytes 0.6 Absolute Eosinophils 0.3 Absolute Basophils 0.0 Sodium 132.7 L Potassium 4.3 Chloride 95 L Carbon Dioxide 29 Anion Gap 9 BUN 35 H Creatinine 3.89 H Est GFR ( Amer) 14 L Est GFR (Non-Af Amer) 11 L Glucose 104 Calcium 8.8 Impressions: Chest X-Ray 01/23/17 17:19 IMPRESSION: CARDIAC ENLARGEMENT. VASCULAR CONGESTION. RIGHT BASILAR DENSITY WITH PLEURAL EFFUSION. GENERALLY IMPROVED COMPARED TO THE PRIOR STUDY. Abdomen/Pelvis CT 01/23/17 17:41 IMPRESSION: 1. GALLSTONES. NO CT FINDINGS OF ACUTE INFLAMMATION. 2. 3 X 4 CM CORTICAL CYST IN THE LEFT KIDNEY. 3. CARDIOMEGALY. MODERATE RIGHT PLEURAL EFFUSION WITH BASILAR ATELECTASIS. 4. NO OTHER SIGNIFICANT OR ACUTE PROCESS IN THE ABDOMEN OR PELVIS. Abdomen Ultrasound 01/23/17 19:01 IMPRESSION: 1. GALLSTONES. 2. CORTICAL CYST IN THE LEFT KIDNEY. 3. RIGHT PLEURAL EFFUSION. Assessment & Plan - Diagnosis (1) Abdominal pain Qualifiers: Abdominal location: unspecified location Qualified Code(s): R10.9 - Unspecified abdominal pain Is this a current diagnosis for this admission?: YesPlan: Improving. (3) Orthostatic hypotension Is this a current diagnosis for this admission?: Yes (4) ESRD (end stage renal disease) on dialysis Is this a current diagnosis for this admission?: YesPlan: patient seen on dialysis which is being supervised to ensure safe and smooth procedure. She is in controlled a. fib now and BP is stable lying down. Will remove 1-2 L as tolerated. Discussed with treating RN. (5) Anemia Qualifiers: Chronic kidney disease stage: on chronic dialysis Is this a current diagnosis for this admission?: YesPlan: order EPO 20 K. (6) Atrial fibrillation with RVR Plan: Controlled.Monitor. (7) Hypotension Qualifiers: Hypotension type: other hypotension type Qualified Code(s): I95.89 - Other hypotension Plan: Stable currently.
[2017-01-29] MEDS: WARFARIN SODIUM 7.5 MG TABLET PO SCH (22:00)
[2017-01-29] MEDS: TRAZODONE HCL 50 MG TABLET PO SCH (22:00)
[2017-01-29] MEDS: ATORVASTATIN CALCIUM 20 MG TABLET PO SCH (22:00)
[2017-01-29] MEDS: LORAZEPAM 1 MG TABLET PO PRN (22:10)
[2017-01-29] MEDS: ACETAMINOPHEN 325 MG TABLET PO PRN (22:11)
[2017-01-30 07:33] LABS: PROTHROMBIN TIME 26.1 SEC (11.4-15.4)
[2017-01-30] MEDS: FOLIC ACID/VITAMIN B COMP W-C CAPSULE PO SCH (10:00)
[2017-01-30] MEDS: METOPROLOL SUCCINATE 50 MG TAB.SR.24H PO SCH (10:14)
[2017-01-30] MEDS: MIDODRINE HCL 5 MG TABLET PO SCH ×2 (10:15→13:42)
[2017-01-30] MEDS: ESCITALOPRAM OXALATE 10 MG TABLET PO SCH (10:15)
[2017-01-30] MEDS: LANSOPRAZOLE 30 MG TAB.RAP.DR PO SCH (10:23)
[2017-01-30 13:06] VITALS: BP 116/62
--- NOTE | 2017-01-30 13:49 | PDOC DISCHARGE SUMMARY ---
General - Admit/Disc Date/PCP Admission Date/Primary Care Provider: 01/24/17 12:26 CHRIS BENEDICT MD Discharge Date: 01/30/17 - Discharge Diagnosis (1) Abdominal pain Is this a current diagnosis for this admission?: YesSummary: Resolved. Likely associated with viral gastroenteritis (2) Orthostatic hypotension Is this a current diagnosis for this admission?: YesSummary: Improved and stable (3) Subtherapeutic international normalized ratio (INR) Is this a current diagnosis for this admission?: YesSummary: Resolved now low therapeutic (4) Combined systolic and diastolic congestive heart failure Is this a current diagnosis for this admission?: YesSummary: Euvolemic at the present time (5) ESRD (end stage renal disease) on dialysis Is this a current diagnosis for this admission?: YesSummary: Continue dialysis as previously scheduled (6) Anemia Is this a current diagnosis for this admission?: YesSummary: Chronic disease (7) Atrial fibrillation Is this a current diagnosis for this admission?: YesSummary: Controlled rate (8) H/O prosthetic mitral valve Is this a current diagnosis for this admission?: YesSummary: On Coumadin (9) H/O prosthetic aortic valve replacement Is this a current diagnosis for this admission?: YesSummary: Continue Coumadin goal INR 2.5-3.5 - Additional Information Resuscitation Status: Full Code Discharge Diet: Other (Comments) - Dialysis Discharge Activity: Activity As Tolerated, Balance Activity w/Rest Home Medications: B Complex & C No.20/Folic Acid [Virt-Caps Softgel] 1 mg PO DAILY 11/26/16 Escitalopram Oxalate [Lexapro] 20 mg PO DAILY 11/26/16 Pantoprazole Sodium [Protonix] 40 mg PO DAILY 11/26/16 Warfarin Sodium [Coumadin 7.5 mg Tablet] 7.5 mg PO SUTUTHSA PRN 11/26/16 Midodrine HCl [Proamatine 5 mg Tablet] 5 mg PO Q12 01/16/17 Aspirin [Aspirin EC] 81 mg PO DAILY 01/24/17 Atorvastatin Calcium [Lipitor 20 mg Tablet] 20 mg PO QHS 01/24/17 Metoprolol Succinate [Toprol Xl 50 mg Tab.sr] 50 mg PO Q12 01/24/17 Trazodone HCl [Desyrel 50 mg Tablet] 25 mg PO QHS 01/24/17 Warfarin Sodium [Coumadin 5 mg Tablet] 5 mg PO MOWEFR 01/24/17 Acetaminophen [Tylenol 325 mg Tablet] 650 mg PO Q8HP PRN tablet 01/30/17 History of Present Illness Patient complains of: Abdominal pain and chest pain History of Present Illness: TAMMY BUCKLEY is a 76 year old -[place] female, with a fairly complicated medical history, including end-stage renal disease, on Friday dialysis, with full session on the , atrial fibrillation, with, according to the emergency room physician, not infrequent ER visits for atrial fibrillation with rapid ventricular response, status post mitral and aortic valve replacements, and underlying systolic congestive heart failure, who presents to the emergency room for evaluation of above complaints. Patient has been discussed with emergency room physician who evaluated the patient. Patient is oriented to location and year, but is not certain why she is in the emergency room and is able to provide basically little history in terms of chronic events, review of systems, personal habits, family history, etc. intermittent confused answers to basic questions. No friends or family are present. Old inpatient records are reviewed. According to the emergency room physician, initial plans were to send the patient home. However, when they performed orthostatic vital signs, she became quite lightheaded and unsteady on her feet, with orthostatic hypotension noted. Emergency room physician made a comment that "tonight is the best I have ever seen her." ER physician also made the comment that patient's usual ER visits are usually post dialysis sessions, as was the case this time. Currently resting quietly, pain-free. Does admit to one episode of vomiting on the , but no nausea now. No fever or chills, diarrhea or dysuria. Hospital Course Hospital Course: Patient was admitted to the telemetry unit. Dr. Nelson, nephrology, dialysis management. Patient's INR is noted to be subtherapeutic at 1.3. She was therefore started on IV heparin infusion and warfarin dose was increased. She did have a drop in her hemoglobin by 1 g her second hospital day. She had no overt signs of bleeding. She continued to be in atrial fibrillation as well. Her rate was controlled with medications. She was dialyzed on Friday schedule. Her epigastric pain resolved. She is able to tolerate a regular diet with no nausea or vomiting. 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 Her hemoglobin remained stable she had no signs of any bleeding. Today she feels well she feels back to baseline. She will be discharged home with home physical therapy and nursing. Physical Exam Vital Signs: Temp Pulse Resp BP Pulse Ox 98.1 F 82 16 116/62 93 01/30/17 12:57 01/30/17 12:57 01/30/17 12:57 01/30/17 12:57 01/30/17 12:57 Intake & Output 01/29/17 01/30/17 01/31/17 06:59 06:59 06:59 Intake Total 960 778 Output Total 0 2000 Balance 960 -1222 Weight 72.6 kg General appearance: PRESENT: no acute distress, well-developed, well-nourished Head exam: PRESENT: atraumatic, normocephalic Eye exam: PRESENT: conjunctiva pink, EOMI, PERRLA. ABSENT: scleral icterus Ear exam: PRESENT: normal external ear exam Mouth exam: PRESENT: moist, tongue midline Neck exam: ABSENT: carotid bruit, JVD, lymphadenopathy, thyromegaly Respiratory exam: PRESENT: clear to auscultation kee. ABSENT: rales, rhonchi, wheezes Cardiovascular exam: PRESENT: RRR. ABSENT: diastolic murmur, rubs, systolic murmur Pulses: PRESENT: normal dorsalis pedis pul Vascular exam: PRESENT: normal capillary refill GI/Abdominal exam: PRESENT: normal bowel sounds, soft. ABSENT: distended, guarding, mass, organolmegaly, rebound, tenderness Rectal exam: PRESENT: deferred Extremities exam: PRESENT: full ROM. ABSENT: calf tenderness, clubbing, pedal edema Musculoskeletal exam: PRESENT: ambulatory, full ROM, normal inspection Neurological exam: PRESENT: alert, awake, oriented to person, oriented to place , oriented to time, oriented to situation, CN II-XII grossly intact. ABSENT: motor sensory deficit Psychiatric exam: PRESENT: appropriate affect, normal mood. ABSENT: homicidal ideation, suicidal ideation Skin exam: PRESENT: dry, intact, warm. ABSENT: cyanosis, rash Results Laboratory Results: 01/29/17 06:11 01/29/17 06:11 Impressions: Chest X-Ray 01/23/17 17:19 IMPRESSION: CARDIAC ENLARGEMENT. VASCULAR CONGESTION. RIGHT BASILAR DENSITY WITH PLEURAL EFFUSION. GENERALLY IMPROVED COMPARED TO THE PRIOR STUDY. Abdomen/Pelvis CT 01/23/17 17:41 IMPRESSION: 1. GALLSTONES. NO CT FINDINGS OF ACUTE INFLAMMATION. 2. 3 X 4 CM CORTICAL CYST IN THE LEFT KIDNEY. 3. CARDIOMEGALY. MODERATE RIGHT PLEURAL EFFUSION WITH BASILAR ATELECTASIS. 4. NO OTHER SIGNIFICANT OR ACUTE PROCESS IN THE ABDOMEN OR PELVIS. Abdomen Ultrasound 01/23/17 19:01 IMPRESSION: 1. GALLSTONES. 2. CORTICAL CYST IN THE LEFT KIDNEY. 3. RIGHT PLEURAL EFFUSION. Plan Discharge Plan: Home with physical therapy Time Spent: Less than 30 Minutes
[2017-01-30] MEDS ORDERED: WARFARIN SODIUM 5 MG TABLET PO SCH (22:00)
[2017-01-31 13:38] LABS: PARTIAL THROMBOPLASTIN TIME > 235.0 SEC (23.5-35.8)
== END 2017-01-30 15:14 | disposition home health service (06) | DRG 391 ==
LOC: ER 17:11 → EH 23:40 → UNDOADMOB 23:40 → EH 01-24 00:56 → 3S 01-24 01:56 → EH 01-24 01:56 → OBSVTOIN 01-24 12:26 → 4S 01-26 00:16
PROVIDERS: ADMIT Family Medicine; ATTEND Family Medicine
PROC: 5A1D60Z (ICD-10-PCS; principal; 2017-01-24)
DX: A08.4 Viral intestinal infection, unspecified (principal); N18.6 End stage renal disease; I50.23 Acute on chronic systolic (congestive) heart failure; I13.2 Hypertensive heart and chronic kidney disease with heart failure and with stage 5 chronic kidney disease, or end stage renal disease; E87.2 Acidosis; K92.2 Gastrointestinal hemorrhage, unspecified; E11.22 Type 2 diabetes mellitus with diabetic chronic kidney disease; E78.5 Hyperlipidemia, unspecified; I95.1 Orthostatic hypotension; D63.1 Anemia in chronic kidney disease; I48.2 Chronic atrial fibrillation; F17.210 Nicotine dependence, cigarettes, uncomplicated; Z79.82 Long term (current) use of aspirin; I25.2 Old myocardial infarction; Z95.2 Presence of prosthetic heart valve; Z79.01 Long term (current) use of anticoagulants; Z99.2 Dependence on renal dialysis; Z88.0 Allergy status to penicillin; Z88.1 Allergy status to other antibiotic agents; Z88.8 Allergy status to other drugs, medicaments and biological substances
CPT/HCPCS: 36415; 71010; 74176; 76700; 80048; 80053; 80162; 81001; 82272; 82550; 82553; 82803; 82962; 83605; 83690; 83735; 84100; 84484; 85025; 85027; 85610; 85730; 87040; 87086; 93005; 93010; 96360; 99285; G0378; J1644; J3490; J7030; J7040; J7050; Q4081

== ENCOUNTER 2017-05-10 13:52 | Inpatient (IN) | payer MEDICARE, OTHER ==
--- NOTE | 2017-05-10 14:11 | ER Document Report ---
ED General - General Chief Complaint: Palpitations Stated Complaint: ACCELERATED HEART RATE Time Seen by Provider: 05/10/17 14:06 Notes: 76-year-old female to the emergency department chief complaint of rapid heart rate. Patient was at dialysis. Had one and a half hours of dialysis performed when her heart started racing. Has had this happen before. Takes medication for her A. fib including anticoagulants. Denies any chest pain at this time. Does have some mild shortness of breath. TRAVEL OUTSIDE OF THE [place] IN LAST 30 DAYS: No - Related Data Allergies/Adverse Reactions: Penicillins Allergy (Severe, Verified 01/16/17 10:56) Swelling of hands and/or feet vancomycin [Vancomycin] Adverse Reaction (Intermediate, Verified 01/16/17 10:56) Swelling of hands and/or feet hydrochlorothiazide [From Dyazide] Adverse Reaction (Verified 01/16/17 10:56) Swelling of hands and/or feet triamterene [From Dyazide] Adverse Reaction (Verified 01/16/17 10:56) Swelling of hands and/or feet Home Medications: Current Home Medications Albuterol Sulfate [Proventil Hfa] 2 puff IH TID 05/10/17 [History] Aspirin [Ecotrin 81 mg EC Tablet] 81 mg PO DAILY 05/10/17 [History] Atorvastatin Calcium [Lipitor 20 mg Tablet] 20 mg PO QPM 05/10/17 [History] B Complex W-C No.20/Folic Acid [Nephrocaps Softgel] 1 mg PO DAILY 05/10/17 [ History] Escitalopram Oxalate [Lexapro] 20 mg PO DAILY 05/10/17 [History] Ferrous Sulfate [Feosol 325 mg Tablet] 325 mg PO TID 05/10/17 [History] Folic Acid 1 mg PO DAILY 05/10/17 [History] Insulin Lispro [Humalog] 0 units SQ .PERSLIDINGSCALE 05/10/17 [History] Lorazepam [Ativan 1 mg Tablet] 1 mg PO Q6 05/10/17 [History] Metoprolol Tartrate [Lopressor 25 mg Tablet] 12.5 mg PO QPM 05/10/17 [History] Metoprolol Tartrate [Lopressor 25 mg Tablet] 12.5 mg PO SUMOWEFR@0800 05/10/17 [ History] Midodrine HCl 10 mg PO BID 05/10/17 [History] Pantoprazole Sodium [Protonix] 40 mg PO DAILY 05/10/17 [History] Tiotropium [place] [Spiriva Handihaler 18 mcg/dose (30 Dose)] 18 mcg IH DAILY [History] Trazodone HCl 25 mg PO QPM 05/10/17 [History] Warfarin Sodium [Coumadin 5 mg Tablet] 5 mg PO MOWEFR 05/10/17 [History] Warfarin Sodium [Coumadin 7.5 mg Tablet] 7.5 mg PO SUTUTHSA 05/10/17 [History] Past Medical History - Social History Smoking Status: Unknown if Ever Smoked Family History: Reviewed & Not Pertinent, COPD, DM, Hypertension - Past Medical History Cardiac Medical History: Reports: Hx Atrial Fibrillation, Hx Congestive Heart Failure, Hx Heart Attack, Hx Hypercholesterolemia, Hx Hypertension, Hx Heart Murmur - Aortic and mitral valve replacement. Denies: Hx Coronary Artery Disease Pulmonary Medical History: Reports: Hx COPD, Hx Pneumonia Denies: Hx Asthma, Hx Bronchitis Neurological Medical History: Denies: Hx Cerebrovascular Accident, Hx Seizures Endocrine Medical History: Reports: Hx Diabetes Mellitus Type 2 Renal/ Medical History: Reports: Hx End Stage Renal Disease, Hx Hemodialysis GI Medical History: Reports: Hx Colonoscopy, Hx Endoscopy Musculoskeltal Medical History: Reports Hx Arthritis, Reports Hx Gout Psychiatric Medical History: Reports: Hx Depression Past Surgical History: Reports: Hx Cardiac Surgery - artificial valves x2, Hx Hysterectomy, Hx Orthopedic Surgery - Back surgery 2, Hx Valve Replacement - Mitral and aortic valve replacement, Other - Left forearm fistula, EGD, colonoscopy, right IJV PermCath - Immunizations Hx Diphtheria, Pertussis, Tetanus Vaccination: Yes Hx Pneumococcal Vaccination: 07/28/13 Review of Systems - Review of Systems Constitutional: No symptoms reported EENT: No symptoms reported Cardiovascular: No symptoms reported, Palpitations, Heart racing Respiratory: No symptoms reported, Short of breath Gastrointestinal: No symptoms reported Genitourinary: No symptoms reported Female Genitourinary: No symptoms reported Musculoskeletal: No symptoms reported Skin: No symptoms reported Hematologic/Lymphatic: No symptoms reported Neurological/Psychological: No symptoms reported Physical Exam - Vital signs Vitals: Resp Pulse Ox 18 98 05/10/17 14:07 05/10/17 14:07 Interpretation: Normal - General General appearance: Appears well, Alert - HEENT Head: Normocephalic, Atraumatic Eyes: Normal Pupils: PERRL - Respiratory Respiratory status: No respiratory distress Chest status: Nontender Breath sounds: Normal Chest palpation: Normal - Cardiovascular Rhythm: Irregularly irregular, Tachycardia. No: Regular Heart sounds: Normal auscultation Murmur: No Systolic murmur grade 1-6: 2 - Abdominal Inspection: Normal Distension: No distension Bowel sounds: Normal Tenderness: Nontender Organomegaly: No organomegaly - Back Back: Normal, Nontender - Extremities General upper extremity: Normal inspection, Nontender, Normal color, Normal ROM , Normal temperature General lower extremity: Normal inspection, Nontender, Normal color, Normal ROM , Normal temperature, Normal weight bearing. No: Hany's sign - Neurological Neuro grossly intact: Yes Cognition: Normal Orientation: AAOx4 Dia Coma Scale Eye Opening: Spontaneous Dia Coma Scale Verbal: Oriented [place] Coma Scale Motor: Obeys Commands Dia Coma Scale Total: 15 Speech: Normal Motor strength normal: LUE, RUE, LLE, RLE Sensory: Normal - Psychological Associated symptoms: Normal affect, Normal mood - Skin Skin Temperature: Warm Skin Moisture: Dry Skin Color: Normal Course - Re-evaluation Re-evalutation: 05/10/17 15:26 Patient with A. fib with RVR. Starting on diltiazem drip. Initial bolus given. Initial drip rate at 5 mg. Increase to 7.5 mg. Currently still intermittent rapid ventricular response. Current heart rate fluctuating between 102 and 115. Labs pending. 05/10/17 15:38 Increased to 7.5 mg of diltiazem. Patient stable at this time. Blood pressure a little low. Ordered a small fluid bolus. Dr. Winstonteed to admit at this time. 05/10/17 16:11 Chest X-Ray 05/10/17 14:11 IMPRESSION: Unchanged right pleural effusion with basilar airspace disease. Increased interstitial markings suggesting interstitial pulmonary edema. Cardiomegaly - Vital Signs Vital signs: Temp Pulse Resp BP Pulse Ox 24 H 92/64 L 97 05/10/17 15:00 05/10/17 15:14 05/10/17 15:14 - Laboratory Result Diagrams: 05/10/17 14:22 05/10/17 14:22 Laboratory results interpreted by me: 10/14/17 10/14/17 10/14/17 14:22 14:22 14:22 WBC 3.8 L RBC 3.52 L Hgb 11.5 L Hct 34.4 L MCV 98 H RDW 21.1 H Monocytes % 14.4 H PT BUN 34 H Creatinine 4.69 H Est GFR ( Amer) 11 L Est GFR (Non-Af Amer) 9 L Glucose 142 H Direct Bilirubin 0.9 H Alkaline Phosphatase 139 H NT-Pro-B Natriuret Pep 23870 H 05/10/17 14:22 WBC RBC Hgb Hct MCV RDW Monocytes % PT 17.0 H BUN Creatinine Est GFR ( Amer) Est GFR (Non-Af Amer) Glucose Direct Bilirubin Alkaline Phosphatase NT-Pro-B Natriuret Pep - EKG Interpretation by Tx EKG shows normal: QRS Complexes - A. fib with RVR Rate: Tachycardia Rhythm: A.Fib Critical Care Note - Critical Care Note Total time excluding time spent on procedures (mins): 60 Comments: 60 minutes of critical care time performed this patient has extreme tachycardia , multiple systems involved including renal, cardiac, respiratory. Interventions required to stabilize heart rate. Discharge - Discharge Clinical Impression: Atrial fibrillation with rapid ventricular response Condition: Good Disposition: ADMITTED INPATIENT Admitting Provider: Hospitalist - [facility] Admitted: [facility]
[2017-05-10] MEDS ORDERED: DILTIAZEM HCL/D5W 125 MG/125 ML RTUINJ IV PRN ×2 (14:13→16:35)
[2017-05-10 14:51] LABS: ABSOLUTE EOSINOPHILS # (AUTO) 0.1 10^3/uL (0.0-0.6); ABSOLUTE LYMPHOCYTES (AUTO) 0.5 10^3/uL (0.5-4.7); ABSOLUTE MONOCYTES (AUTO) 0.5 10^3/uL (0.1-1.4); ABSOLUTE NEUT (AUTO) 2.6 10^3/uL (1.7-8.2); BASOPHILS % (AUTO) 0.8 % (0-2); EOSINOPHILS % (AUTO) 1.9 % (0-6); HEMATOCRIT 34.4 % (36.0-47.0); HEMOGLOBIN 11.5 g/dL (12.0-15.5); HGB HCT DIFFERENCE 0.1; LYMPHOCYTES % (AUTO) 14.2 % (13-45); MEAN CORPUSCULAR HEMOGLOBIN 32.8 pg (27.0-33.4); MEAN CORPUSCULAR HGB CONC 33.5 g/dL (32.0-36.0); MEAN CORPUSCULAR VOLUME 98 fl (80-97); MONOCYTES % (AUTO) 14.4 % (3-13); RED BLOOD COUNT 3.52 10^6/uL (3.72-5.28); RED CELL DISTRIBUTION WIDTH 21.1 % (11.5-14.0); SEGMENTED NEUTROPHILS % (AUTO) 68.7 % (42-78); WHITE BLOOD COUNT 3.8 10^3/uL (4.0-10.5)
[2017-05-10 15:11] LABS: ALANINE AMINOTRANSFERASE 22 U/L (9-52); ALBUMIN 4.2 g/dL (3.5-5.0); ALKALINE PHOSPHATASE 139 U/L (38-126); ANION GAP 13 (5-19); ASPARTATE AMINO TRANSFERASE 36 U/L (14-36); BILIRUBIN,DIRECT 0.9 mg/dL (0.0-0.4); BLOOD UREA NITROGEN 34 mg/dL (7-20); CALCIUM 8.7 mg/dL (8.4-10.2); CARBON DIOXIDE 24 mmol/L (22-30); CHLORIDE 104 mmol/L (98-107); CREATINE KINASE MB 1.98 ng/mL (<4.55); CREATININE RESULT 4.69 mg/dL (0.52-1.25); GLUCOSE 142 mg/dL (75-110); POTASSIUM 4.7 mmol/L (3.6-5.0); SODIUM 141.2 mmol/L (137-145); TROPONIN I 0.033 ng/mL
[2017-05-10] MEDS ORDERED: NORMAL SALINE 500 ML IV ONE (15:30)
--- NOTE | 2017-05-10 15:42 | RADIOLOGY REPORT (SQ) ---
EXAM DESCRIPTION: CHEST SINGLE VIEW COMPLETED DATE/TIME: 05/10/2017 3:18 pm REASON FOR STUDY: sob COMPARISON: 11/26/2016, 11/30/2016, 01/23/2017 chest films EXAM PARAMETERS: NUMBER OF VIEWS: One view. TECHNIQUE: Single frontal radiographic view of the chest acquired. RADIATION DOSE: NA LIMITATIONS: None. FINDINGS: LUNGS AND PLEURA: Stable right pleural effusion and right lower lobe airspace disease. Increased interstitial markings at the left lung base likely a combination of interstitial edema and fibrosis. No dense left lung consolidation or left pleural effusion. No right or left pneumothorax MEDIASTINUM AND HILAR STRUCTURES: No masses. Contour normal. HEART AND VASCULAR STRUCTURES: Massive cardiomegaly, old sternotomy for CABG BONES: No acute findings. HARDWARE: Right-sided central venous dialysis catheter tip in the right atrium OTHER: No other significant finding. IMPRESSION: Unchanged right pleural effusion with basilar airspace disease. Increased interstitial markings suggesting interstitial pulmonary edema. Cardiomegaly TECHNICAL DOCUMENTATION: JOB ID: [id number]
[2017-05-10] MEDS ORDERED: ONDANSETRON HCL INJ/PF 4 MG/2 ML SDV IV PRN (16:17)
[2017-05-10] MEDS ORDERED: ONDANSETRON 4 MG TAB.RAPDIS PO PRN (16:17)
[2017-05-10] MEDS ORDERED: ACETAMINOPHEN 325 MG TABLET PO PRN (16:17)
[2017-05-10] MEDS ORDERED: IPRATROPIUM/ALBUTEROL 0.5-2.5 MG/3 ML AMPUL NEB PRN (16:17)
[2017-05-10] MEDS ORDERED: HEPARIN SOD (PORCINE) 1,000 UNIT/ML 10 ML VIAL IV ONE (16:34)
[2017-05-10] MEDS ORDERED: HEPARIN SODIUM,PORCINE/D5W 25,000 UNIT/250 ML RTUINJ IV PRN (16:34)
[2017-05-10] MEDS ORDERED: HEPARIN SOD (PORCINE) 1,000 UNIT/ML 10 ML VIAL IV PRN (16:34)
[2017-05-10] MEDS ORDERED: INSULIN LISPRO 100 UNIT/ML 3 ML VIAL SUBCUT PRN (16:35)
[2017-05-10] MEDS ORDERED: DEXTROSE 40% GEL 15 GM TUBE PO PRN ×2 (16:35)
[2017-05-10] MEDS ORDERED: GLUCAGON,HUMAN RECOMB 1 MG INJ IM PRN (16:35)
[2017-05-10] MEDS ORDERED: DEXTROSE 50%-WATER 25 GM/50 ML DISP.SYRIN IV PRN ×2 (16:35)
[2017-05-10] MEDS ORDERED: (PENDING PHARMACY ID) (Warfarin Sodium 7.5 MG) PO SCH (16:45)
--- NOTE | 2017-05-10 17:10 | PDOC H&P ---
History of Present Illness Admission Date/PCP: 05/10/17 15:45 Patient complains of: Fast heart rate History of Present Illness: TAMMY BUCKLEY is a 76 year old female who has a history previously of atrial fibrillation as well as congestive heart failure and end-stage renal disease who was in dialysis today and reports that she began to have problems with her vision being fussy and feeling lightheaded. The patient was found to have A. fib with a rapid ventricular rate greater than 150 and was transferred to our facility. Patient has been started on diltiazem drip and his heart rate is around 110 now she feels much better. She denies any chest pain. She reports that they did about 1-1/2 hours of dialysis today and they normally do 3 hours. She denies any shortness of breath currently. She does have JVD present on exam however she does have a history of severe pulmonary hypertension. The patient denies having any chest pain with this. She denies any lower extremity edema. She denies any prolonged immobility. She does have both mitral and aortic mechanical valves and is on Coumadin for that but she is subtherapeutic. The patient also has problems with orthostatic hypotension and is on Midodrine for that. The patient denies any cough. She denies any fevers or chills. Past Medical History Cardiac Medical History: Reports: Atrial Fibrillation, Congestive Heart Failure - Systolic and diastolic, Myocardial Infarction, Hyperlipidema, Hypertension, Heart Murmur - Aortic and mitral valve replacement. Denies: Coronary Artery Disease Pulmonary Medical History: Reports: Chronic Obstructive Pulmonary Disease (COPD) , Pneumonia Denies: Asthma, Bronchitis Neurological Medical History: Denies: Seizures Endocrine Medical History: Reports: Diabetes Mellitus Type 2 Renal/ Medical History: Reports: End Stage Renal Disease Malignancy Medical History: Reports: None GI Medical History: Reports: None Musculoskeltal Medical History: Reports: Arthritis, Gout Skin Medical History: Reports: None Psychiatric Medical History: Reports: Depression Hematology: Denies: Anemia Infectious Medical History: Reports: None Past Surgical History Past Surgical History: Reports: Hysterectomy, Orthopedic Surgery - Back surgery 2, Valve Replacement - Mitral and aortic valve replacement, Other - EGD, colonoscopy, right IJV PermCath Social History Information Source: Patient Lives with: Spouse/Significant other Smoking Status: Current Some Day Smoker Frequency of Alcohol Use: None Hx Recreational Drug Use: No Drugs: None Hx Prescription Drug Abuse: No - Advance Directive Resuscitation Status: Full Code Surrogate healthcare decision maker:: Family History Family History: COPD, DM, Hypertension Family History: Mother at age 81 had Alzheimer's. Father at age 88 and had hypertension. Parental Family History Reviewed: Yes Children Family History Reviewed: No Sibling(s) Family History Reviewed.: No Medication/Allergy Home Medications: Albuterol Sulfate [Proventil Hfa] 2 puff IH TID 05/10/17 Aspirin [Ecotrin 81 mg EC Tablet] 81 mg PO DAILY 05/10/17 Atorvastatin Calcium [Lipitor 20 mg Tablet] 20 mg PO QPM 05/10/17 B Complex W-C No.20/Folic Acid [Nephrocaps Softgel] 1 mg PO DAILY 05/10/17 Escitalopram Oxalate [Lexapro] 20 mg PO DAILY 05/10/17 Ferrous Sulfate [Feosol 325 mg Tablet] 325 mg PO TID 05/10/17 Folic Acid 1 mg PO DAILY 05/10/17 Insulin Lispro [Humalog] 0 units SQ .PERSLIDINGSCALE 05/10/17 Lorazepam [Ativan 1 mg Tablet] 1 mg PO Q6 05/10/17 Metoprolol Tartrate [Lopressor 25 mg Tablet] 12.5 mg PO QPM 05/10/17 Metoprolol Tartrate [Lopressor 25 mg Tablet] 12.5 mg PO SUMOWEFR@0800 05/10/17 Midodrine HCl 10 mg PO BID 05/10/17 Pantoprazole Sodium [Protonix] 40 mg PO DAILY 05/10/17 Tiotropium [place] [Spiriva Handihaler 18 mcg/dose (30 Dose)] 18 mcg IH DAILY Trazodone HCl 25 mg PO QPM 05/10/17 Warfarin Sodium [Coumadin 5 mg Tablet] 5 mg PO MOWEFR 05/10/17 Warfarin Sodium [Coumadin 7.5 mg Tablet] 7.5 mg PO SUTUTHSA 05/10/17 Allergies/Adverse Reactions: Penicillins Allergy (Severe, Verified 01/16/17 10:56) Swelling of hands and/or feet vancomycin [Vancomycin] Adverse Reaction (Intermediate, Verified 01/16/17 10:56) Swelling of hands and/or feet hydrochlorothiazide [From Dyazide] Adverse Reaction (Verified 01/16/17 10:56) Swelling of hands and/or feet triamterene [From Dyazide] Adverse Reaction (Verified 01/16/17 10:56) Swelling of hands and/or feet Review of Systems Constitutional: ABSENT: chills, fever(s), headache(s), weight gain, weight loss Eyes: ABSENT: visual disturbances Ears: ABSENT: hearing changes Cardiovascular: PRESENT: palpitations. ABSENT: chest pain, dyspnea on exertion , edema, orthropnea Respiratory: PRESENT: dyspnea. ABSENT: cough, hemoptysis Gastrointestinal: ABSENT: abdominal pain, constipation, diarrhea, hematemesis, hematochezia, nausea, vomiting Genitourinary: ABSENT: dysuria, hematuria Musculoskeletal: ABSENT: joint swelling Integumentary: ABSENT: rash, wounds Neurological: ABSENT: abnormal gait, abnormal speech, confusion, dizziness, focal weakness, syncope Psychiatric: ABSENT: anxiety, depression Endocrine: ABSENT: cold intolerance, heat intolerance, polydipsia, polyuria Hematologic/Lymphatic: ABSENT: easy bleeding, easy bruising Physical Exam Vital Signs: Temp Pulse Resp BP Pulse Ox 24 H 92/64 L 97 05/10/17 15:00 05/10/17 15:14 05/10/17 15:14 General appearance: PRESENT: no acute distress, thin Head exam: PRESENT: atraumatic, normocephalic Eye exam: PRESENT: conjunctiva pink, EOMI, PERRLA. ABSENT: scleral icterus Ear exam: PRESENT: normal external ear exam Mouth exam: PRESENT: moist, tongue midline Neck exam: PRESENT: carotid bruit. ABSENT: JVD, lymphadenopathy, thyromegaly Respiratory exam: PRESENT: rales - Few basilar rales. ABSENT: rhonchi, wheezes Cardiovascular exam: PRESENT: irregular rhythm, systolic murmur - 3/6 systolic murmur, tachycardia. ABSENT: diastolic murmur, rubs GI/Abdominal exam: PRESENT: normal bowel sounds, soft. ABSENT: distended, guarding, mass, organolmegaly, rebound, tenderness Rectal exam: PRESENT: deferred Extremities exam: ABSENT: calf tenderness, clubbing, pedal edema Neurological exam: PRESENT: alert, awake, oriented to person, oriented to place , oriented to time, oriented to situation, CN II-XII grossly intact. ABSENT: motor sensory deficit Psychiatric exam: PRESENT: appropriate affect Skin exam: PRESENT: dry, intact, warm. ABSENT: cyanosis, rash Results Impressions: Chest X-Ray 05/10/17 14:11 IMPRESSION: Unchanged right pleural effusion with basilar airspace disease. Increased interstitial markings suggesting interstitial pulmonary edema. Cardiomegaly Assessment & Plan - Diagnosis (1) Atrial fibrillation with rapid ventricular response Is this a current diagnosis for this admission?: Yes Plan: Patient has had frequent admissions for atrial fibrillation with rapid ventricular rate. The patient has been started on a diltiazem drip and will continue with that. She does have some evidence for volume overload currently but hopefully this will improve with control of her heart rate. If it does not improve overnight she will need to be transferred out for dialysis. She had dialysis today but was only able to complete half of it. She denies any chest pain is unlikely that this is related to an acute cardiac event. Patient is on Coumadin but is subtherapeutic. Will start on heparin drip. (2) ESRD (end stage renal disease) on dialysis Is this a current diagnosis for this admission?: Yes Plan: Patient was only able to complete one half of her dialysis. If she is feeling short of breath tomorrow we will transfer out for dialysis. She normally does dialysis on Tuesdays, , Saturdays. (3) Anemia Qualifiers: Other causes of anemia: chronic disease, kidney Is this a current diagnosis for this admission?: Yes (4) COPD (chronic obstructive pulmonary disease) Is this a current diagnosis for this admission?: Yes Plan: We will give nebulizers as needed. (5) Congestive heart failure Qualifiers: Congestive heart failure type: systolic Congestive heart failure chronicity : acute on chronic Qualified Code(s): I50.23 - Acute on chronic systolic ( congestive) heart failure Is this a current diagnosis for this admission?: Yes Plan: Patient has a history of both systolic and diastolic congestive heart failure. She does show some evidence for mild volume overload at this time. Most likely related to the rapid ventricular rate. (6) Diabetes mellitus, type 2 Qualifiers: Diabetes mellitus complication status: with kidney complications Diabetes mellitus complication detail: with chronic kidney disease Diabetes mellitus middle or intermediate [employer] principal insulin use: unspecified assisted insulin use status Chronic kidney disease stage: on chronic dialysis Qualified Code(s): E11.22 - Type 2 diabetes mellitus with diabetic chronic kidney disease Is this a current diagnosis for this admission?: Yes Plan: We will cover with sliding scale insulin. (7) Hypertensive disorder Qualifiers: Hypertension type: essential hypertension Qualified Code(s): I10 - Essential (primary) hypertension Is this a current diagnosis for this admission?: Yes (8) Orthostatic hypotension Is this a current diagnosis for this admission?: Yes Plan: Patient has episodes of hypotension for which she takes Midrin. (9) Pulmonary hypertension Is this a current diagnosis for this admission?: Yes Plan: Patient has severe pulmonary hypertension. (10) H/O prosthetic aortic valve replacement Is this a current diagnosis for this admission?: Yes Plan: Patient has mechanical valves. She has both aortic and mitral valve replacement. She is subtherapeutic on Coumadin and is started on heparin today. (11) Coronary artery disease Is this a current diagnosis for this admission?: Yes (12) Depression Is this a current diagnosis for this admission?: Yes Plan: Continue Lexapro and trazodone. (13) Hyperlipidemia Is this a current diagnosis for this admission?: Yes Plan: Continue with Lipitor. - Time Time Spent: 50 to 70 Minutes - Inpatient Certification Medical Necessity: Need Close Monitoring Due to Risk of Patient Decompensation
--- NOTE | 2017-05-10 17:29 | EKG REPORT ---
SEVERITY:- ABNORMAL ECG - ATRIAL FIBRILLATION, V-RATE 85-170 RIGHT BUNDLE BRANCH BLOCK LVH WITH SECONDARY REPOLARIZATION ABNORMALITY INFERIOR INFARCT, AGE INDETERMINATE ANTEROLATERAL INFARCT, AGE INDETERMINATE : Confirmed by: Michael Foster MD 10-May-2017 17:28:08
[2017-05-10] MEDS ORDERED: ATORVASTATIN CALCIUM 20 MG TABLET PO SCH (18:00)
[2017-05-10] MEDS ORDERED: METOPROLOL TARTRATE 25 MG TABLET PO SCH (18:00)
[2017-05-10] MEDS ORDERED: TRAZODONE HCL 50 MG TABLET PO SCH (18:00)
[2017-05-10 20:14] LABS: HEMATOCRIT 33.9 % (36.0-47.0); HEMOGLOBIN 11.1 g/dL (12.0-15.5); HGB HCT DIFFERENCE -0.6; MEAN CORPUSCULAR HEMOGLOBIN 32.3 pg (27.0-33.4); MEAN CORPUSCULAR HGB CONC 32.7 g/dL (32.0-36.0); MEAN CORPUSCULAR VOLUME 99 fl (80-97); PROTHROMBIN TIME 17.4 SEC (11.4-15.4); RED BLOOD COUNT 3.44 10^6/uL (3.72-5.28); RED CELL DISTRIBUTION WIDTH 21.8 % (11.5-14.0); WHITE BLOOD COUNT 4.3 10^3/uL (4.0-10.5)
[2017-05-10 20:40] LABS: BASOPHILS % (MANUAL) 0 % (0-2); EOSINOPHILS % (MANUAL) 0 % (0-6); LYMPHOCYTES % (MANUAL) 19 % (13-45); TOTAL CELLS COUNTED 100
[2017-05-10] MEDS: ALBUTEROL SULFATE HFA (90 MCG/PUFF) 8 GM MDI (1 MDI/ER DISP) IH SCH (20:40)
[2017-05-10 20:43] LABS: ANISOCYTOSIS 3+; OVALOCYTES SLIGHT; POIKILOCYTOSIS SLIGHT; SCHISTOCYTES SLIGHT; TARGET CELLS SLIGHT
[2017-05-10] MEDS: FERROUS SULFATE 325 MG TABLET PO SCH (21:33)
[2017-05-10] MEDS: LORAZEPAM 1 MG TABLET PO SCH ×2 (21:34→23:42)
[2017-05-10] MEDS: MIDODRINE HCL 5 MG TABLET PO SCH (21:37)
[2017-05-11] MEDS ORDERED: NORMAL SALINE 500 ML IV PRN ×2 (00:10)
[2017-05-11] MEDS ORDERED: PHENYLEPHRINE HCL INJ/PF 10 MG/1 ML SDV ONE ×2 (00:38→08:12)
[2017-05-11 00:51] LABS: ARTERIAL BLOOD BASE EXCESS -4.1 mmol/L; ARTERIAL BLOOD O2 SATURATION 80.5 % (94-98)
[2017-05-11 01:30] LABS: CREATINE KINASE MB 0.41 ng/mL (<4.55)
[2017-05-11 01:36] LABS: TROPONIN I < 0.012 ng/mL
[2017-05-11 03:23] LABS: ARTERIAL BLOOD BASE EXCESS -4.6 mmol/L; ARTERIAL BLOOD O2 SATURATION 72.9 % (94-98)
[2017-05-11 03:56] LABS: ARTERIAL BLOOD BASE EXCESS -4.4 mmol/L; ARTERIAL BLOOD O2 SATURATION 87.2 % (94-98)
[2017-05-11] MEDS ORDERED: PROPOFOL INJ 200 MG/20 ML VIAL IV ONE (04:49)
[2017-05-11] MEDS ORDERED: PROPOFOL 100 ML IV ONE (04:53)
--- NOTE | 2017-05-11 05:37 | RADIOLOGY REPORT (SQ) ---
EXAM DESCRIPTION: CHEST SINGLE VIEW COMPLETED DATE/TIME: 05/11/2017 5:28 am REASON FOR STUDY: ETT, NGT placement COMPARISON: 05/10/2017 EXAM PARAMETERS: NUMBER OF VIEWS: One view TECHNIQUE: Single frontal radiograph of the chest. RADIATION DOSE: N/A LIMITATIONS: None. FINDINGS: TEMPORARY SUPPORT DEVICES:ETT in expected location. NG tube courses below the josiane-diaphr agm in to the stomach. Central venous access catheter tip is in expected location. LUNGS AND PLEURA: Perihilar opacities. Decreased effusions. No masses. No pneumothorax. MEDIASTINUM AND HILAR STRUCTURES: No masses. Contour normal. HEART AND VASCULAR STRUCTURES: Heart normal in size. normal vascularity. Aorta normal for age. BONES: No acute findings. OTHER: No other significant finding. IMPRESSION: Perihilar opacities. Reduced effusions. SUPPORT DEVICE(S) IN EXPECTED LOCATIONS. TECHNICAL DOCUMENTATION: JOB ID: [id number] [employer]- All Rights Reserved
[2017-05-11] MEDS: LORAZEPAM 1 MG TABLET PO SCH (05:51)
[2017-05-11 06:58] LABS: ABSOLUTE LYMPHOCYTES (AUTO) 0.5 10^3/uL (0.5-4.7); ABSOLUTE MONOCYTES (AUTO) 0.8 10^3/uL (0.1-1.4); ABSOLUTE NEUT (AUTO) 3.7 10^3/uL (1.7-8.2); BASOPHILS % (AUTO) 0.5 % (0-2); EOSINOPHILS % (AUTO) 0.9 % (0-6); HEMATOCRIT 32.7 % (36.0-47.0); HEMOGLOBIN 10.7 g/dL (12.0-15.5); HGB HCT DIFFERENCE -0.6; LYMPHOCYTES % (AUTO) 9.3 % (13-45); MEAN CORPUSCULAR HEMOGLOBIN 32.5 pg (27.0-33.4); MEAN CORPUSCULAR HGB CONC 32.8 g/dL (32.0-36.0); MEAN CORPUSCULAR VOLUME 99 fl (80-97); MONOCYTES % (AUTO) 16.5 % (3-13); RED CELL DISTRIBUTION WIDTH 21.4 % (11.5-14.0); SEGMENTED NEUTROPHILS % (AUTO) 72.8 % (42-78); WHITE BLOOD COUNT 5.1 10^3/uL (4.0-10.5)
[2017-05-11 07:23] LABS: ANION GAP 15 (5-19); BLOOD UREA NITROGEN 35 mg/dL (7-20); CALCIUM 8.6 mg/dL (8.4-10.2); CARBON DIOXIDE 21 mmol/L (22-30); CHLORIDE 106 mmol/L (98-107); CREATINE KINASE 30 U/L (30-135); CREATININE RESULT 5.56 mg/dL (0.52-1.25); GLUCOSE 115 mg/dL (75-110); MAGNESIUM 1.8 mg/dL (1.6-2.3); POTASSIUM 4.5 mmol/L (3.6-5.0); SODIUM 141.9 mmol/L (137-145)
[2017-05-11 07:34] LABS: CREATINE KINASE MB 1.58 ng/mL (<4.55); TROPONIN I 0.028 ng/mL
[2017-05-11] MEDS ORDERED: METOPROLOL TARTRATE 25 MG TABLET PO SCH (08:00)
[2017-05-11] MEDS ORDERED: TIOTROPIUM BROMIDE DPI 5 CAP/KIT (18 MCG/CAP) IH SCH ×2 (08:00→10:00)
[2017-05-11] MEDS ORDERED: DEXTROSE 5%-WATER 250 ML with PHENYLEPHRINE HCL 40 MG IV PRN ×2 (08:11)
[2017-05-11] MEDS: ALBUTEROL SULFATE HFA (90 MCG/PUFF) 8 GM MDI (1 MDI/ER DISP) IH SCH ×2 (08:43→14:14)
[2017-05-11] MEDS: MIDODRINE HCL 5 MG TABLET PO SCH (09:04)
[2017-05-11] MEDS: PROPOFOL 100 ML IV PRN ×2 (09:05→14:00)
[2017-05-11] MEDS: FERROUS SULFATE 325 MG TABLET PO SCH ×2 (09:08→14:00)
[2017-05-11] MEDS ORDERED: LANSOPRAZOLE 30 MG TAB.RAP.DR PO SCH (10:00)
[2017-05-11] MEDS ORDERED: ASPIRIN 81 MG TABLET, ENT COATED PO SCH (10:00)
[2017-05-11] MEDS ORDERED: FOLIC ACID 1 MG TABLET PO SCH (10:00)
[2017-05-11] MEDS ORDERED: FOLIC ACID/VITAMIN B COMP W-C CAPSULE PO SCH (10:00)
[2017-05-11] MEDS ORDERED: FAMOTIDINE 20 MG TABLET PO SCH (10:00)
[2017-05-11] MEDS ORDERED: ESCITALOPRAM OXALATE 10 MG TABLET PO SCH (10:00)
--- NOTE | 2017-05-11 10:57 | PDOC TRANSFER SUMMARY ---
General Admission Date/PCP: 05/10/17 16:17 Transfer Date: 05/11/17 Accepting Facility: [place] Accepting Physician: Dr. Marti Resuscitation Status: Full Code - Transfer Diagnosis (1) Atrial fibrillation with rapid ventricular response Is this a current diagnosis for this admission?: Yes Diagnosis Summary: The patient initially was on a diltiazem drip. Her heart rate is controlled without the diltiazem drip currently. (2) ESRD (end stage renal disease) on dialysis Is this a current diagnosis for this admission?: Yes Diagnosis Summary: Patient normally receives dialysis on Tuesdays, , Saturdays. She did 1.5 hours on Friday instead of her usual full 3 hours. (3) Anemia Is this a current diagnosis for this admission?: Yes (4) COPD (chronic obstructive pulmonary disease) Is this a current diagnosis for this admission?: Yes Diagnosis Summary: Patient developed an acute COPD exacerbation yesterday evening that led to respiratory arrest requiring intubation and mechanical ventilation. (5) Congestive heart failure Is this a current diagnosis for this admission?: Yes Diagnosis Summary: Patient has a history of both systolic and diastolic congestive heart failure. The patient today does show some evidence for volume overload. (6) Diabetes mellitus, type 2 Is this a current diagnosis for this admission?: Yes (7) Hypertensive disorder Is this a current diagnosis for this admission?: Yes (8) Orthostatic hypotension Is this a current diagnosis for this admission?: Yes Diagnosis Summary: The patient routinely takes Midodrine as an outpatient. (9) Pulmonary hypertension Is this a current diagnosis for this admission?: Yes Diagnosis Summary: Patient has a history of severe pulmonary hypertension. (10) H/O prosthetic aortic valve replacement Is this a current diagnosis for this admission?: Yes Diagnosis Summary: Patient has both aortic and mitral mechanical valves. Because of this we are starting her on a heparin drip. She is subtherapeutic on her Coumadin. She has had hematuria which we will watch closely starting heparin. (11) Coronary artery disease Is this a current diagnosis for this admission?: Yes (12) Depression Is this a current diagnosis for this admission?: Yes (13) Hyperlipidemia Is this a current diagnosis for this admission?: Yes - Transfer Medications Home Medications: Albuterol Sulfate [Proventil Hfa] 2 puff IH TID 05/10/17 Aspirin [Ecotrin 81 mg EC Tablet] 81 mg PO DAILY 05/10/17 Atorvastatin Calcium [Lipitor 20 mg Tablet] 20 mg PO QPM 05/10/17 B Complex W-C No.20/Folic Acid [Nephrocaps Softgel] 1 mg PO DAILY 05/10/17 Escitalopram Oxalate [Lexapro] 20 mg PO DAILY 05/10/17 Ferrous Sulfate [Feosol 325 mg Tablet] 325 mg PO TID 05/10/17 Folic Acid 1 mg PO DAILY 05/10/17 Insulin Lispro [Humalog] 0 units SQ .PERSLIDINGSCALE 05/10/17 Lorazepam [Ativan 1 mg Tablet] 1 mg PO Q6 05/10/17 Metoprolol Tartrate [Lopressor 25 mg Tablet] 12.5 mg PO QPM 05/10/17 Metoprolol Tartrate [Lopressor 25 mg Tablet] 12.5 mg PO SUMOWEFR@0800 05/10/17 Midodrine HCl 10 mg PO BID 05/10/17 Pantoprazole Sodium [Protonix] 40 mg PO DAILY 05/10/17 Tiotropium [place] [Spiriva Handihaler 18 mcg/dose (30 Dose)] 18 mcg IH DAILY Trazodone HCl 25 mg PO QPM 05/10/17 Warfarin Sodium [Coumadin 5 mg Tablet] 5 mg PO MOWEFR 05/10/17 Warfarin Sodium [Coumadin 7.5 mg Tablet] 7.5 mg PO SUTUTHSA 05/10/17 Transfer Medications: Current Medications Acetaminophen (Tylenol 325 Mg Tablet) 650 mg PO Q4HP PRN PRN Reason: FOR PAIN OR TEMP Stop: 06/09/17 16:16 Last Admin: 05/11/17 10:12 Dose: 650 mg Albuterol (Ventolin Hfa 8 Gm Mdi (1 Mdi/Er Disp)) 2 puff IH RTTID MARSHA Stop: 06/09/17 19:59 Last Admin: 05/11/17 08:43 Dose: Not Given Albuterol/Ipratropium (Duoneb 3 Ml Ampul) 3 ml NEB RTQ6HP PRN PRN Reason: FOR WHEEZING Stop: 06/09/17 16:16 Aspirin (Ecotrin 81 Mg Ec Tablet) 81 mg PO DAILY MARSHA Stop: 06/10/17 09:59 Last Admin: 05/11/17 09:09 Dose: Not Given Atorvastatin Calcium (Lipitor 20 Mg Tablet) 20 mg PO QPM MARSHA Stop: 06/09/17 17:59 Last Admin: 05/10/17 21:32 Dose: 20 mg Dextrose (Dextrose Inj 50% Syringe (25 Gm/50 Ml)) 12.5 gm IV PRN PRN; Protocol PRN Reason: FOR BG 50-69 IN ALERT PATIENT Stop: 06/09/17 16:34 Dextrose (Dextrose Inj 50% Syringe (25 Gm/50 Ml)) 25 gm IV PRN PRN PRN Reason: Protocol Stop: 06/09/17 16:34 Escitalopram Oxalate (Lexapro 10 Mg Tablet) 20 mg PO DAILY MARSHA Stop: 06/10/17 09:59 Last Admin: 05/11/17 09:03 Dose: 20 mg Famotidine (Pepcid 20 Mg Tablet) 20 mg PO DAILY [facility] Stop: 06/10/17 09:59 Last Admin: 05/11/17 09:04 Dose: 20 mg Ferrous Sulfate (Feosol 325 Mg Tablet) 325 mg PO TID MARSHA Stop: 06/09/17 17:59 Last Admin: 05/11/17 09:08 Dose: 325 mg Folic Acid (Folvite 1 Mg Tablet) 1 mg PO DAILY AMRSHA Stop: 06/10/17 09:59 Last Admin: 05/11/17 09:05 Dose: 1 mg Glucagon (Glucagen Inj 1 Mg Vial) 1 mg IM PRN PRN; Protocol PRN Reason: Evaluate for BG < 70 Stop: 06/09/17 16:34 Glucose (Glutose 40% Gel 15 Gm Tube) 15 gm PO PRN PRN; Protocol PRN Reason: FOR BG 50-69 IN ALERT PATIENT Stop: 06/09/17 16:34 Glucose (Glutose 40% Gel 15 Gm Tube) 30 gm PO PRN PRN; Protocol PRN Reason: FOR BG < 50 IN ALERT PATIENT Stop: 06/09/17 16:34 Heparin Sodium (Porcine) (Heparin Inj 1,000 Unit/Ml 10 Ml Vial) 0 - 12,000 unit IV .BOLUS PER PROTOCOL PRN; Protocol PRN Reason: RESPOND TO aPTT VALUE Stop: 06/09/17 16:33 Last Admin: 05/11/17 09:13 Dose: 4,000 unit Diltiazem HCl (Cardizem Rtu Inj 125 Mg-D5w 125 Ml Premix) 125 mg in 125 mls @ 0 mls/hr IV CONTINUOUS PRN; Protocol; Titrate PRN Reason: THIS MED IS NOT "PRN" Stop: 06/09/17 14:12 Last Admin: 05/10/17 15:43 Dose: 125 ml Heparin Sodium/Dextrose (Heparin Rtu 25,000 Unit/250 Ml D5w Premix) 25,000 unit in 250 mls @ 0 mls/hr IV CONTINUOUS PRN; Protocol; Titrate PRN Reason: THIS MED IS NOT "PRN" Stop: 06/09/17 16:33 Last Admin: 05/11/17 09:14 Dose: 250 ml Diltiazem HCl (Cardizem Rtu Inj 125 Mg-D5w 125 Ml Premix) 125 mg in 125 mls @ 0 mls/hr IV CONTINUOUS PRN; Protocol; Titrate PRN Reason: THIS MED IS NOT "PRN" Stop: 06/09/17 16:34 Sodium Chloride (Nacl 0.9% 500 Ml Iv Soln) 500 mls @ 0 mls/hr IV CONTINUOUS PRN ; Wide Open PRN Reason: THIS MED IS NOT "PRN" Propofol (Diprivan Rtu 1000 Mg/100 Ml Inf.Bottle) 100 mls @ 0 mls/hr IV CONTINUOUS PRN; Protocol; Titrate PRN Reason: THIS MED IS NOT "PRN" Stop: 06/10/17 05:12 Last Admin: 05/11/17 09:05 Dose: 100 ml Hard Fat/Phenylephrine 40 mg/ (Dextrose) 250 mls @ 0 mls/hr IV CONTINUOUS PRN; Protocol; Titrate PRN Reason: THIS MED IS NOT "PRN" Stop: 06/10/17 08:10 Insulin Human Lispro (Humalog Insulin 100 Unit/1 Ml 3 Ml Vial) 0 - 12 unit SUBCUT ACHSP PRN PRN Reason: Protocol Stop: 06/09/17 16:34 Lansoprazole (Prevacid 30 Mg Odt Tablet) 30 mg PO DAILY MARSHA Stop: 06/10/17 09:59 Last Admin: 05/11/17 09:04 Dose: 30 mg Midodrine (Proamatine 5 Mg Tablet) 10 mg PO BID MARSHA Stop: 06/09/17 17:59 Last Admin: 05/11/17 09:04 Dose: 10 mg Multivit/Ca Carb/B Cmplx/FA/Prenat (Nephrocaps Multiple Vitamin Capsule) 1 cap PO DAILY MARSHA Stop: 06/10/17 09:59 Last Admin: 05/11/17 09:04 Dose: 1 cap Ondansetron HCl (Zofran Inj/Pf 4 Mg/2 Ml Sdv) 4 mg IV Q6HP PRN PRN Reason: FOR NAUSEA/VOMITING Stop: 06/09/17 16:16 Ondansetron HCl (Zofran Odt 4 Mg Tablet) 4 mg PO Q6HP PRN PRN Reason: FOR NAUSEA/VOMITING Stop: 06/09/17 16:16 Last Admin: 05/10/17 21:39 Dose: 4 mg Tiotropium [place] (Spiriva Handihaler 5 Cap/Kit (18 Mcg/Cap)) 1 cap IH DAILY [facility] Stop: 06/10/17 09:59 Last Admin: 05/11/17 09:09 Dose: Not Given Trazodone HCl (Desyrel 50 Mg Tablet) 25 mg PO QPM [facility] Stop: 06/09/17 17:59 Last Admin: 05/10/17 21:38 Dose: 25 mg Warfarin Sodium (Coumadin 5 Mg Tablet) 5 mg PO [id number]@2200 [facility] Stop: 06/11/17 21:59 Warfarin Sodium (Coumadin 7.5 Mg Tablet) 7.5 mg PO [id number]@2200 [facility] Stop: 06/10/17 21:59 - Allergies Allergies/Adverse Reactions: Penicillins Allergy (Severe, Verified 01/16/17 10:56) Swelling of hands and/or feet vancomycin [Vancomycin] Adverse Reaction (Intermediate, Verified 01/16/17 10:56) Swelling of hands and/or feet hydrochlorothiazide [From Dyazide] Adverse Reaction (Verified 01/16/17 10:56) Swelling of hands and/or feet triamterene [From Dyazide] Adverse Reaction (Verified 01/16/17 10:56) Swelling of hands and/or feet - Diet/Activity Discharge Diet: Cardiac Discharge Activity: Bedrest Hospital Course Hospital Course: 76-year-old female who is end-stage renal disease on dialysis on Tuesdays, , Saturdays who presented from dialysis after developing atrial fibrillation with rapid ventricular rate. The patient was only able to complete 1.5 hours of her usual 3 hours of dialysis. When the patient presented to the emergency room she was tachycardic with a heart rate into the 150s. She was started on a diltiazem drip with improvement in her heart rate. We were asked to admit the patient. The patient the time of exam did have some evidence for pulmonary edema however it was not clear how much of this was related to her tachycardia and how much of it was from lack of dialysis. The patient was oxygenating adequately and was admitted to the stepdown unit. The patient overnight developed respiratory distress with evidence for an acute COPD exacerbation. The patient was noted to be acidotic both respiratory and metabolic acidosis and was intubated and placed on the ventilator. The patient was noted to have acidosis with pH of 7.1 and her ventilator rate was increased. The patient has evidence for continued pulmonary edema and requiring 70% FiO2 on her ventilator. Because of this I feel the patient needs dialysis and we are unable to provide that at this time. We also will not have nephrology service available for the next 7 days. Because of that I have contacted [facility] ICU unit and they have graciously agreed to accept the patient. Dr. Marti is the accepting physician. The patient's heart rate has been stable off of the diltiazem drip. The patient's diltiazem drip was stopped because of hypotension. The patient has continued with hypotension and last night received a 500 cc bolus of IV fluids. The patient currently is on Maikel-Synephrine 100 mcg. The patient also has a history of severe pulmonary hypertension as well as systolic and diastolic congestive heart failure. Patient also had a Adames catheter placed last night and some bright red blood was noted in the catheter. The patient makes minimal urine normally. Patient also has a history of aortic and mitral valve mechanical valves. Patient normally is on Coumadin and she was subtherapeutic when she presented. Because of this she has been started on a heparin drip. We will need to monitor her hematuria closely in light of starting her on anticoagulation. The patient will be transferred to [facility] when a bed is available. Physical Exam Vital Signs: Temp Pulse Resp BP Pulse Ox 100.0 F 107 H 11 L 118/96 H 96 05/11/17 10:00 05/11/17 08:00 05/11/17 09:49 05/11/17 09:49 05/11/17 09:49 Intake & Output 10/05/11/17 05/12/17 06:59 06:59 06:59 Intake Total 570 Output Total 35 45 Balance 535 -45 Weight 70.1 kg General appearance: PRESENT: thin Head exam: PRESENT: atraumatic, normocephalic Eye exam: PRESENT: conjunctiva pink, EOMI, PERRLA. ABSENT: scleral icterus Ear exam: PRESENT: normal external ear exam Mouth exam: PRESENT: moist, tongue midline Neck exam: PRESENT: JVD. ABSENT: carotid bruit, lymphadenopathy, thyromegaly Respiratory exam: PRESENT: decreased breath sounds, rales - Basilar rails. ABSENT: rhonchi, wheezes Cardiovascular exam: PRESENT: irregular rhythm, systolic murmur - 3/6. ABSENT: diastolic murmur, rubs GI/Abdominal exam: PRESENT: normal bowel sounds, soft. ABSENT: distended, guarding, mass, organolmegaly, rebound, tenderness Extremities exam: ABSENT: calf tenderness, clubbing, pedal edema Neurological exam: PRESENT: other - Intubated and sedated Psychiatric exam: PRESENT: other - Unable to assess Skin exam: PRESENT: dry, intact, warm. ABSENT: cyanosis, rash Results Laboratory Results: 05/11/17 06:50 05/11/17 06:50 05/10/17 05/11/17 05/11/17 19:55 00:20 02:15 WBC 4.3 RBC 3.44 L Hgb 11.1 L Hct 33.9 L MCV 99 H MCH 32.3 MCHC 32.7 RDW 21.8 H Plt Count 153 Seg Neutrophils % Not Reportable Lymphocytes % Not Reportable Monocytes % Not Reportable Eosinophils % Not Reportable Basophils % Not Reportable Absolute Neutrophils Not Reportable Absolute Lymphocytes Not Reportable Absolute Monocytes Not Reportable Absolute Eosinophils Not Reportable Absolute Basophils Not Reportable Carbonic Acid 2.57 H 2.51 H HCO3/H2CO3 Ratio 10:1 10:1 ABG pH 7.12 L* 7.12 L* ABG pCO2 85.3 H* 83.5 H* ABG pO2 60.1 L 51.8 L ABG HCO3 26.9 H 26.4 H ABG O2 Saturation 80.5 L 72.9 L ABG Base Excess -4.1 -4.6 FiO2 5L 70% Sodium Potassium Chloride Carbon Dioxide Anion Gap BUN Creatinine Est GFR ( Amer) Est GFR (Non-Af Amer) Glucose Calcium Magnesium 05/11/17 05/11/17 05/11/17 03:40 06:50 06:50 WBC 5.1 RBC 3.30 L Hgb 10.7 L Hct 32.7 L MCV 99 H MCH 32.5 MCHC 32.8 RDW 21.4 H Plt Count 152 Seg Neutrophils % 72.8 Lymphocytes % 9.3 L Monocytes % 16.5 H Eosinophils % 0.9 Basophils % 0.5 Absolute Neutrophils 3.7 Absolute Lymphocytes 0.5 Absolute Monocytes 0.8 Absolute Eosinophils 0.0 Absolute Basophils 0.0 Carbonic Acid 2.49 H HCO3/H2CO3 Ratio 10:1 ABG pH 7.12 L* ABG pCO2 82.6 H* ABG pO2 70.4 L ABG HCO3 26.5 H ABG O2 Saturation 87.2 L ABG Base Excess -4.4 FiO2 70% Sodium 141.9 Potassium 4.5 Chloride 106 Carbon Dioxide 21 L Anion Gap 15 BUN 35 H Creatinine 5.56 H Est GFR ( Amer) 9 L Est GFR (Non-Af Amer) 7 L Glucose 115 H Calcium 8.6 Magnesium 1.8 05/11/17 05/11/17 05/11/17 00:42 00:42 06:50 Creatine Kinase < 20 L 30 CK-MB (CK-2) 0.41 Troponin I < 0.012 05/11/17 06:50 Creatine Kinase CK-MB (CK-2) 1.58 Troponin I 0.028 Impressions: Chest X-Ray 05/11/17 05:00 IMPRESSION: Perihilar opacities. Reduced effusions. SUPPORT DEVICE(S) IN EXPECTED LOCATIONS. Plan Discharge Plan: Patient is to be transferred to [facility]. Dr. Marti is the accepting physician. Time Spent: Greater than 30 Minutes
[2017-05-11 13:23] LABS: CREATINE KINASE MB 1.23 ng/mL (<4.55); TROPONIN I 0.022 ng/mL
[2017-05-11 13:33] VITALS: BP 119/55
[2017-05-11] MEDS ORDERED: SUCCINYLCHOLINE CHLORIDE INJ 200 MG/10 ML VIAL ONE (13:50)
[2017-05-11] MEDS ORDERED: WARFARIN SODIUM 7.5 MG TABLET PO SCH (22:00)
[2017-05-12] MEDS ORDERED: (PENDING PHARMACY ID) (Warfarin Sodium 5 MG) PO SCH (16:32)
[2017-05-12] MEDS ORDERED: WARFARIN SODIUM 5 MG TABLET PO SCH (22:00)
== END 2017-05-11 13:50 | disposition short-term general hospital (02) | DRG 308 ==
LOC: ER 13:52 → UNDOADMIN 15:45 → EH 15:45 → 3S 19:15 → ICU 05-11 00:27
PROVIDERS: ADMIT Internal Medicine; ATTEND Internal Medicine
PROC: 0BH17EZ Insertion of Endotracheal Airway into Trachea, Via Natural or Artificial Opening (ICD-10-PCS; principal; 2017-05-11)
PROC: 5A1935Z Respiratory Ventilation, Less than 24 Consecutive Hours (ICD-10-PCS; 2017-05-11)
DX: I48.91 Unspecified atrial fibrillation (principal); N18.6 End stage renal disease; J96.00 Acute respiratory failure, unspecified whether with hypoxia or hypercapnia; I13.2 Hypertensive heart and chronic kidney disease with heart failure and with stage 5 chronic kidney disease, or end stage renal disease; J44.1 Chronic obstructive pulmonary disease with (acute) exacerbation; I50.42 Chronic combined systolic (congestive) and diastolic (congestive) heart failure; E87.2 Acidosis; E11.22 Type 2 diabetes mellitus with diabetic chronic kidney disease; D63.1 Anemia in chronic kidney disease; I95.1 Orthostatic hypotension; R79.1 Abnormal coagulation profile; R31.9 Hematuria, unspecified; I27.20 Pulmonary hypertension, unspecified; E78.5 Hyperlipidemia, unspecified; F32.9 Major depressive disorder, single episode, unspecified; F17.200 Nicotine dependence, unspecified, uncomplicated; M10.9 Gout, unspecified; Z99.2 Dependence on renal dialysis; Z79.01 Long term (current) use of anticoagulants; Z95.2 Presence of prosthetic heart valve; Z79.899 Other long term (current) drug therapy; I25.2 Old myocardial infarction; Z78.1 Physical restraint status; Z90.710 Acquired absence of both cervix and uterus; Z83.3 Family history of diabetes mellitus; Z82.49 Family history of ischemic heart disease and other diseases of the circulatory system; Z79.82 Long term (current) use of aspirin; Z88.0 Allergy status to penicillin; Z88.1 Allergy status to other antibiotic agents; Z79.4 Long term (current) use of insulin
CPT/HCPCS: 31500; 36415; 36600; 71010; 80048; 80053; 82550; 82553; 82803; 82962; 83735; 83880; 84484; 85025; 85610; 85730; 93005; 93010; 94002; 94660; 96360; 99291; J0330; J1644; J2370; J2704; J3490; J7040; S0119

== ENCOUNTER 2017-07-03 11:48 | Emergency (ER) | payer MEDICARE, OTHER ==
--- NOTE | 2017-07-03 12:04 | ER Document Report ---
ED General - General Stated Complaint: FEELS UNWELL Time Seen by Provider: 07/03/17 11:54 Notes: 77-year-old female with A. fib RVR hypotension on and pulmonary hypertension who gets dialysis Friday presents with dizziness and not feeling well generalized constant severe worsening this morning. Missed dialysis. She was found with a systolic blood pressure in the 80s and a saturation in the 80s. EMS administered oxygen and a small fluid bolus. She does not have any chest pain or pressure but feels mildly short of breath. No increased leg edema. No fever no chills no cough no body aches. Lab called with INR greater than 11 TRAVEL OUTSIDE OF THE [place] IN LAST 30 DAYS: No - Related Data Allergies/Adverse Reactions: Penicillins Allergy (Severe, Verified 01/16/17 10:56) Swelling of hands and/or feet vancomycin [Vancomycin] Adverse Reaction (Intermediate, Verified 01/16/17 10:56) Swelling of hands and/or feet hydrochlorothiazide [From Dyazide] Adverse Reaction (Verified 01/16/17 10:56) Swelling of hands and/or feet triamterene [From Dyazide] Adverse Reaction (Verified 01/16/17 10:56) Swelling of hands and/or feet Past Medical History - Social History Smoking Status: Never Smoker Family History: COPD, DM, Hypertension - Past Medical History Cardiac Medical History: Reports: Hx Atrial Fibrillation, Hx Congestive Heart Failure - Systolic and diastolic, Hx Heart Attack, Hx Hypercholesterolemia, Hx Hypertension, Hx Heart Murmur - Aortic and mitral valve replacement. Denies: Hx Coronary Artery Disease Pulmonary Medical History: Reports: Hx COPD, Hx Pneumonia Denies: Hx Asthma, Hx Bronchitis Neurological Medical History: Denies: Hx Cerebrovascular Accident, Hx Seizures Endocrine Medical History: Reports: Hx Diabetes Mellitus Type 2 Renal/ Medical History: Reports: Hx End Stage Renal Disease, Hx Hemodialysis GI Medical History: Reports: Hx Colonoscopy, Hx Endoscopy Musculoskeltal Medical History: Reports Hx Arthritis, Reports Hx Gout Psychiatric Medical History: Denies: Hx Depression Past Surgical History: Reports: Hx Cardiac Surgery - artificial valves x2, Hx Hysterectomy, Hx Orthopedic Surgery - Back surgery 2, Hx Valve Replacement - Mitral and aortic valve replacement, Other - EGD, colonoscopy, right IJV PermCath - Immunizations Hx Diphtheria, Pertussis, Tetanus Vaccination: Yes Hx Pneumococcal Vaccination: 07/28/13 Review of Systems - Review of Systems Notes: REVIEW OF SYSTEMS GEN: generalized weakness dizziness s ENT: Denies sore throat, nasal discharge, ear pain EYES: Denies blurry vision, eye pain, discharge CV: Denies chest pain, palpitations, edema RESP: Shortness of breath GI: Denies abdominal pain, nausea, vomiting, diarrhea MSK: Denies joint pain/swelling, edema, SKIN: Denies rash, skin lesions LYMPH: Denies swollen glands/lymph nodes NEURO: Denies headache, focal weakness or numbness, dizziness PSYCH: Denies depression, suicidal or homicidal ideation PHYSICAL EXAMINATION General: Appears weak and ill Head: Atraumatic, normocephalic ENT: Mouth normal, oropharynx moist, no exudates or tonsillar enlargement Eyes: Conjunctiva normal, pupils equal, lids normal Neck: No JVD, supple, no guarding CVS: Normal rate, regular rhythm, no murmurs Resp: No resp distress, equal and normal breath sounds bilaterally. Tunneled dialysis catheter in the right chest is intact. GI: Nondistended, soft, no tenderness to palpation, no rebound or guarding Ext: No deformities, bilateral trace pedal edema, normal range of motion in upper and lower ext Back: No CVA or midline TTP Skin: No rash, warm Lymphatic: No lymphadeopathy noted Neuro: Awake, lightly sleepy but responsive. Oriented 3. Face symmetric. GCS 15. No asterixis. Physical Exam - Vital signs Vitals: Resp BP 29 H 84/64 L 07/03/17 11:57 07/03/17 11:57 Course - Re-evaluation Re-evalutation: 07/03/17 12:59 Called to bedside at 12:50 PM for blood pressure 60/40. Patient feeling dizzy. She has a very small IV in her hand. Fluid is infusing. I placed an external jugular IV and ordered 1 L fluid bolus as well as blood cultures and antibiotics because I am concerned for sepsis. 07/03/17 13:33 Lab called with critical value hemoglobin 4.6. Patient still hypotensive. Ordered emergency release blood, 1 unit, also ordered type and screen. 07/03/17 13:55 Patient's arrived. He states that she is on Coumadin she also says she fell yesterday and is having buttock pain. Exam of the buttock shows no hematomas but there is melena at the anal verge. Immediately added coagulation studies. Already getting blood. Order Protonix bolus and drip. Ordered INR and PTT. Ordered vitamin K subcu. Spoke with pharmacy regarding prothrombin complex concentrate. Placed a call to [facility] to transfer patient to ICU with GI consult for upper GI bleed with hemodynamic compromise. 07/03/17 14:[address] Mclaughlin on behalf of Dr. Garcia to the ICU at [facility]. Lab called at 230. INR is off the charts high. Spoke with the pharmacy we do not have prothrombin complex concentrate. Spoke with [facility] to escalate patient's acuity and transfer priority and they will dispatch a truck now. I requested to see if we could get prothrombin complex concentrate to be brought on the truck with the croup. Will work on getting this to happen. In the meantime if time permits I will place a central line on the patient does have 2 functioning IVs at this time. 07/03/17 14:47 Spoke with by Tommy mendieta regarding bringing prothrombin complex concentrate. This is not possible. 07/03/17 16:15 Patient's pelvis film shows degenerative right hip. She has pain on the left side not the right. I do not see signs of a pelvis fracture. Initially I ordered a CT scan to rule out pelvis fracture and associated hematoma but the transport team arrived. Her vitals are stable and I will defer this to [facility]. Central line was placed. - Vital Signs Vital signs: Temp Pulse Resp BP Pulse Ox 97.5 F 90 27 H 106/76 100 07/03/17 15:27 07/03/17 15:27 07/03/17 16:02 07/03/17 16:02 07/03/17 16:02 - Laboratory Result Diagrams: 07/03/17 12:38 07/03/17 12:58 Laboratory results interpreted by me: 07/03/17 07/03/17 07/03/17 12:38 12:58 12:58 RBC 1.35 L Hgb 4.6 L* Hct 14.2 L* MCV 105 H MCH 34.0 H RDW 20.4 H Seg Neuts % (Manual) 89 H Lymphocytes % (Manual) 9 L Monocytes % (Manual) 2 L Sodium 136.3 L Potassium 5.1 H Carbon Dioxide 21 L BUN 94 H Creatinine 5.78 H Est GFR ( Amer) 9 L Est GFR (Non-Af Amer) 7 L Glucose 166 H Lactic Acid 2.8 H Calcium 7.7 L Phosphorus 5.5 H Crossmatch 07/03/17 13:46 RBC Hgb Hct MCV MCH RDW Seg Neuts % (Manual) Lymphocytes % (Manual) Monocytes % (Manual) Sodium Potassium Carbon Dioxide BUN Creatinine Est GFR ( Amer) Est GFR (Non-Af Amer) Glucose Lactic Acid Calcium Phosphorus Crossmatch See Detail - Diagnostic Test Radiology reviewed: Image reviewed, Reports reviewed - EKG Interpretation by Me Rate: Tachycardia Rhythm: A.Fib [place]/QRS: RBBB When compared to previous EKG there are: No significant change Procedures - Central Line Left Femoral Time completed: 16:12 Consent obtained: Yes Central line pre-insertion: Sterile PPE donned, Chloraprep applied, Sterile drapes applied Central line lumen type: Triple Anesthetic type: 1% Lidocaine mL's of anesthesia: 3 Ultrasound guided: Yes Line secured with sutures: Yes Central line post-insertion: Blood return from lumens, Biopatch applied, Sutured , Sterile dressing applied Number of attempts: 1 Complications: No Notes: 07/03/17 16:15 Patient blood noted to be quite thin. No hematoma. - Additional Procedures IV insertion Time performed: 12:50 Additional Procedures: IV insertion - ChloraPrep left neck, patient placed in Trendelenburg. 18-gauge IV inserted without issue. Critical Care Note - Critical Care Note Total time excluding time spent on procedures (mins): 75 Comments: The above patient is critically ill. Not including procedures, but including direct re-evaluations, speaking with patient and/or consultants, interpreting results, and documenting, I spent the total amount of minute listed listed above on critical care time Discharge - Discharge Clinical Impression: Hemorrhagic shock, Upper gastrointestinal bleed Anemia Qualifiers: Anemia type: other cause Renal failure (ARF), acute on chronic Qualifiers: Acute renal failure type: unspecified Chronic kidney disease stage: unspecified stage Qualified Code(s): N17.9 - Acute kidney failure, unspecified; N18.9 - Chronic kidney disease, unspecified; N18.9 - Chronic kidney disease, unspecified Condition: Critical Disposition: [facility]
--- NOTE | 2017-07-03 12:34 | EKG REPORT ---
SEVERITY:- ABNORMAL ECG - AFIB AND FLUTTER RIGHT BUNDLE BRANCH BLOCK LEFT VENTRICULAR HYPERTROPHY INFERIOR INFARCT, AGE INDETERMINATE : Confirmed by: Anusha Martines 03-Jul-2017 12:33:26
--- NOTE | 2017-07-03 12:45 | RADIOLOGY REPORT (SQ) ---
EXAM DESCRIPTION: CHEST SINGLE VIEW COMPLETED DATE/TIME: 07/03/2017 12:29 pm REASON FOR STUDY: SOB COMPARISON: 05/11/2017 EXAM PARAMETERS: NUMBER OF VIEWS: One view. TECHNIQUE: Single frontal radiographic view of the chest acquired. RADIATION DOSE: NA LIMITATIONS: None. FINDINGS: LUNGS AND PLEURA: There is opacification in the right base suggestive of a somewhat locula jose pleural effusion. Pulmonary vascular congestion is present MEDIASTINUM AND HILAR STRUCTURES: No masses. Contour normal. HEART AND VASCULAR STRUCTURES: Cardiomegaly. BONES: No acute findings. HARDWARE: Dual-lumen catheter is in place on the right. OTHER: No other significant finding. IMPRESSION: Right pleural effusion. Cardiomegaly with pulmonary vascular congestion and without fra nk CHF. TECHNICAL DOCUMENTATION: JOB ID: [id number] [employer]- All Rights Reserved
[2017-07-03] MEDS ORDERED: VANCOMYCIN HCL INJ 1000 MG VIAL IV ONE (12:57)
[2017-07-03] MEDS ORDERED: LEVOFLOXACIN 500 MG/D5W RTU 500 MG/100 ML RTUPB IV ONE (12:58)
[2017-07-03] MEDS ORDERED: NORMAL SALINE 1000 ML 1,000 ML IV ONE (12:59)
[2017-07-03 13:15] LABS: MEAN CORPUSCULAR HGB CONC 32.3 g/dL (32.0-36.0); MEAN CORPUSCULAR VOLUME 105 fl (80-97); PLATELET COUNT 238 10^3/uL (150-450); RED BLOOD COUNT 1.35 10^6/uL (3.72-5.28); RED CELL DISTRIBUTION WIDTH 20.4 % (11.5-14.0); WHITE BLOOD COUNT 6.7 10^3/uL (4.0-10.5)
[2017-07-03] MEDS ORDERED: NORMAL SALINE 250 ML IV PRN ×2 (13:33→14:00)
[2017-07-03 13:46] LABS: ANION GAP 14 (5-19); BLOOD UREA NITROGEN 94 mg/dL (7-20); CALCIUM 7.7 mg/dL (8.4-10.2); CARBON DIOXIDE 21 mmol/L (22-30); CHLORIDE 101 mmol/L (98-107); GLUCOSE 166 mg/dL (75-110); PHOSPHORUS 5.5 mg/dL (2.5-4.5); POTASSIUM 5.1 mmol/L (3.6-5.0); SODIUM 136.3 mmol/L (137-145)
[2017-07-03] MEDS ORDERED: PANTOPRAZOLE SODIUM 40 MG VIAL IV ONE (13:50)
[2017-07-03] MEDS ORDERED: PANTOPRAZOLE SODIUM 40 MG VIAL IV PRN (13:51)
[2017-07-03] MEDS ORDERED: PHYTONADIONE INJ 10 MG/1 ML AMPULE SUBCUT ONE (13:55)
[2017-07-03 13:56] LABS: ABSOLUTE LYMPHOCYTES# (MANUAL) 0.6 10^3/uL (0.5-4.7); ABSOLUTE MONOCYTES # (MANUAL) 0.1 10^3/uL (0.1-1.4); BASOPHILS % (MANUAL) 0 % (0-2); EOSINOPHILS % (MANUAL) 0 % (0-6); LYMPHOCYTES % (MANUAL) 9 % (13-45); MONOCYTES % (MANUAL) 2 % (3-13); SEGMENTED NEUTROPHILS % (MAN) 89 % (42-78); TOTAL CELLS COUNTED 100
[2017-07-03 13:58] LABS: ANISOCYTOSIS 2+; BURR CELLS SLIGHT; HYPOCHROMASIA 1+; OVALOCYTES 1+; PLATELET COMMENT ADEQUATE; POIKILOCYTOSIS 1+; SCHISTOCYTES SLIGHT; TOXIC GRANULATION SLIGHT
[2017-07-03 13:59] LABS: HEMATOCRIT 14.2 % (36.0-47.0); HEMOGLOBIN 4.6 g/dL (12.0-15.5)
--- NOTE | 2017-07-03 14:51 | RADIOLOGY REPORT (SQ) ---
EXAM DESCRIPTION: PELVIS AP COMPLETED DATE/TIME: 07/03/2017 2:42 pm REASON FOR STUDY: fall COMPARISON: None. NUMBER OF VIEWS: One view TECHNIQUE: AP Pelvis LIMITATIONS: None. FINDINGS: MINERALIZATION: Normal. HIPS: No acute fracture or dislocation. Degenerative changes with sclerosis and osteophytes, right g reater than left. No worrisome bone lesions. PELVIS AND SACRUM: No acute fracture or dislocation. No worrisome bone lesions. PUBIS AND ISCHIUM: No acute fracture. LOWER LUMBAR SPINE: No significant findings as visualized. SOFT TISSUES: No findings. OTHER: No other significant finding. IMPRESSION: DEGENERATIVE CHANGES IN THE HIPS, PARTICULARLY THE RIGHT HIP. NO APPARENT ACUTE FINDING S. TECHNICAL DOCUMENTATION: JOB ID: [id number] [employer]- All Rights Reserved
[2017-07-03] MEDS ORDERED: FENTANYL CITRATE INJ/PF 100 MCG/2 ML AMPUL IV ONE (16:04)
[2017-07-03 16:41] VITALS: BP 102/54
== END 2017-07-03 16:56 | disposition short-term general hospital (02) ==
LOC: ER 11:48
PROC: 06HN33Z Insertion of Infusion Device into Left Femoral Vein, Percutaneous Approach (ICD-10-PCS; principal; 2017-07-03)
DX: R57.8 Other shock (principal); K92.2 Gastrointestinal hemorrhage, unspecified; N17.9 Acute kidney failure, unspecified; N18.9 Chronic kidney disease, unspecified; I48.91 Unspecified atrial fibrillation; I95.9 Hypotension, unspecified; I27.20 Pulmonary hypertension, unspecified; R42 Dizziness and giddiness; R06.02 Shortness of breath; Z79.899 Other long term (current) drug therapy
CPT/HCPCS: 93005; 99291; 99292; 96372; 96361; 96375; 96365; 86900; 86901; 36415; 87040; 36430; 86850; 83735; 84100; 85025; 80048; 86920; 83605; 71010; 72170; 93010; 36556; C1751; P9017; P9016; J1956; J3010; J3430; C9113; J7030; S0164

== ENCOUNTER 2017-07-18 15:17 | Emergency (ER) | payer MEDICARE, OTHER ==
--- NOTE | 2017-07-18 16:11 | ER Document Report ---
ED General - General Chief Complaint: Edema Stated Complaint: SWELLING Time Seen by Provider: 07/18/17 15:54 Notes: The patient is a 77-year-old female has medical history ESRD (TuThSa), pulmonary hypertension (on home 2-3L O2), presents with 1 day of bilateral leg swelling, worse on the right. She says she is not on any diuretics and she received her full course of dialysis yesterday. She denies fevers, redness, calf pain, numbness, tingling, cough, increasing shortness of breath, chest pain , abdominal pain or back pain. TRAVEL OUTSIDE OF THE [place] IN LAST 30 DAYS: No - Related Data Allergies/Adverse Reactions: Penicillins Allergy (Severe, Verified 01/16/17 10:56) Swelling of hands and/or feet vancomycin [Vancomycin] Adverse Reaction (Intermediate, Verified 01/16/17 10:56) Swelling of hands and/or feet hydrochlorothiazide [From Dyazide] Adverse Reaction (Verified 01/16/17 10:56) Swelling of hands and/or feet triamterene [From Dyazide] Adverse Reaction (Verified 01/16/17 10:56) Swelling of hands and/or feet Past Medical History - General Information source: Patient - Social History Smoking Status: Current Every Day Smoker Chew tobacco use (# tins/day): No Frequency of alcohol use: None Drug Abuse: None Family History: COPD, DM, Hypertension Patient has suicidal ideation: No Patient has homicidal ideation: No - Past Medical History Cardiac Medical History: Reports: Hx Atrial Fibrillation, Hx Congestive Heart Failure - Systolic and diastolic, Hx Heart Attack, Hx Hypercholesterolemia, Hx Hypertension, Hx Heart Murmur - Aortic and mitral valve replacement. Denies: Hx Coronary Artery Disease Pulmonary Medical History: Reports: Hx COPD, Hx Pneumonia Denies: Hx Asthma, Hx Bronchitis Neurological Medical History: Denies: Hx Cerebrovascular Accident, Hx Seizures Endocrine Medical History: Reports: Hx Diabetes Mellitus Type 2 Renal/ Medical History: Reports: Hx End Stage Renal Disease, Hx Hemodialysis. Denies: Hx Peritoneal Dialysis GI Medical History: Reports: Hx Colonoscopy, Hx Endoscopy Musculoskeltal Medical History: Reports Hx Arthritis, Reports Hx Gout Psychiatric Medical History: Denies: Hx Depression Past Surgical History: Reports: Hx Cardiac Surgery - artificial valves x2, Hx Hysterectomy, Hx Orthopedic Surgery - Back surgery 2, Hx Valve Replacement - Mitral and aortic valve replacement, Other - EGD, colonoscopy, right IJV PermCath - Immunizations Hx Diphtheria, Pertussis, Tetanus Vaccination: Yes Hx Pneumococcal Vaccination: 07/28/13 Review of Systems - Review of Systems Notes: REVIEW OF SYSTEMS: CONSTITUTIONAL: -fevers, -chills EENT: -eye pain, -difficulty swallowing, -nasal congestion CARDIOVASCULAR: -chest pain, -syncope. RESPIRATORY: +cough, -SOB GASTROINTESTINAL: -abdominal pain, -nausea, -vomiting, -diarrhea GENITOURINARY: -dysuria, -hematuria MUSCULOSKELETAL: -back pain, -neck pain, +peripheral edema SKIN: -rash or skin lesions. HEMATOLOGIC: -easy bruising or bleeding. LYMPHATIC: -swollen, enlarged glands. NEUROLOGICAL: -altered mental status or loss of consciousness, -headache, - neurologic symptoms PSYCHIATRIC: -anxiety, -depression. ALL OTHER SYSTEMS REVIEWED AND NEGATIVE. Physical Exam - Vital signs Vitals: Pulse Ox 100 07/18/17 15:54 - Notes Notes: PHYSICAL EXAMINATION: GENERAL: Well-appearing, well-nourished and in no acute distress. HEAD: Atraumatic, normocephalic. EYES: Pupils equal round and reactive to light, extraocular movements intact, sclera anicteric, conjunctiva are normal. ENT: nares patent, oropharynx clear without exudates. Moist mucous membranes. NECK: Normal range of motion, supple without lymphadenopathy LUNGS: No respiratory distress. Rales at bases. HEART: Irregular rhythm. ABDOMEN: Soft, nontender, normoactive bowel sounds. No guarding, no rebound. No masses appreciated. EXTREMITIES: 3+ pitting edema in RLE up to knees. 2+ pitting edema in LLE up to knees. NEUROLOGICAL: Cranial nerves grossly intact. Normal speech, normal gait. Normal sensory and motor exams. PSYCH: Normal mood, normal affect. SKIN: Warm, Dry, normal turgor, no rashes or lesions noted. Course - Re-evaluation Re-evalutation: Patient presents with increased peripheral edema and a mild cough. Her chest x- ray shows evidence of mild pulmonary vascular congestion, which is consistent with her known CHF. She is in no respiratory distress satting 100% on her normal home 2 L nasal cannula. Her blood work is consistent with her ESRD and she is scheduled for dialysis in the morning. Potassium is 5.8, but no hyperkalemic EKG changes. Lasix and Bumex were provided to help with the potassium and to help with the pulmonary edema and peripheral edema. Ultrasound of her right lower extremity does not show any evidence of DVT and her INR is in the therapeutic range. Instructed patient that she must follow-up with her primary care physician for further evaluation and treatment. Given very strict return precautions and she understands. - Vital Signs Vital signs: Temp Pulse Resp BP Pulse Ox 23 H 120/63 99 07/18/17 20:31 07/18/17 20:31 07/18/17 20:31 - Laboratory Result Diagrams: 07/18/17 17:50 07/18/17 17:50 Laboratory results interpreted by me: 07/18/17 07/18/17 07/18/17 17:50 17:50 17:50 RBC 2.83 L Hgb 9.2 L Hct 28.4 L MCV 101 H D RDW 21.8 H PT APTT Sodium 135.9 L Potassium 5.8 H BUN 48 H Creatinine 5.88 H Est GFR ( Amer) 8 L Est GFR (Non-Af Amer) 7 L Glucose 114 H Creatine Kinase 22 L NT-Pro-B Natriuret Pep [id number] H Albumin 3.3 L 07/18/17 17:50 RBC Hgb Hct MCV RDW PT 24.5 H APTT 44.9 H Sodium Potassium BUN Creatinine Est GFR ( Amer) Est GFR (Non-Af Amer) Glucose Creatine Kinase NT-Pro-B Natriuret Pep Albumin - Diagnostic Test Radiology reviewed: Image reviewed, Reports reviewed Radiology results interpreted by me: CXR: Cardiomegaly. Vascular congestion. - EKG Interpretation by Me Rate: Normal Rhythm: A.Fib When compared to previous EKG there are: No significant change Discharge - Discharge Clinical Impression: Peripheral edema Condition: Stable Disposition: HOME, SELF-CARE Additional Instructions: You must go to dialysis tomorrow. Continues to take your Bumex to help with the fluid in your legs. There is no evidence of a blood clot in your legs. Edema, Peripheral You have swelling in your legs. This is called peripheral edema. It can be caused by "leaky capillaries," inflammation, disease of the leg veins, or excess salt and water in your body. Edema may be a sign of heart, kidney, or liver disease. A medical evaluation can determine if there is a serious underlying cause for your edema. Avoid prolonged standing. If you must sit for a long time, occasionally get up and walk around or elevate your legs. Support stockings can be helpful in limiting swelling. Often diuretic or water pills are used to remove excess salt and water from your body. Call the doctor or return if you develop increased swelling, pain, or redness, shortness of breath, chest pain, or any other significant change.
--- NOTE | 2017-07-18 16:55 | RADIOLOGY REPORT (SQ) ---
EXAM DESCRIPTION: CHEST SINGLE VIEW COMPLETED DATE/TIME: 07/18/2017 4:44 pm REASON FOR STUDY: cough COMPARISON: 07/03/2017. NUMBER OF VIEWS: One view. TECHNIQUE: Single frontal radiographic view of the chest acquired. LIMITATIONS: None. FINDINGS: LUNGS AND PLEURA: Right pleural effusion with basilar atelectasis. MEDIASTINUM AND HILAR STRUCTURES: No masses or contour abnormality. HEART AND VASCULATURE: Cardiac enlargement. Vascular congestion. BONES: No acute findings. HARDWARE: Sternotomy wires. Multi lumen catheter. OTHER: No other significant finding. IMPRESSION: CARDIAC ENLARGEMENT. VASCULAR CONGESTION. RIGHT PLEURAL EFFUSION. SIMILAR APPEARANCE TO THE PREVIOUS STUDY. TECHNICAL DOCUMENTATION: JOB ID: [id number] [employer]- All Rights Reserved
[2017-07-18] MEDS ORDERED: FUROSEMIDE INJ/PF 40 MG/4 ML SDV IV ONE (16:58)
[2017-07-18 18:05] LABS: ABSOLUTE BASOPHILS # (AUTO) 0.1 10^3/uL (0.0-0.2); ABSOLUTE EOSINOPHILS # (AUTO) 0.1 10^3/uL (0.0-0.6); ABSOLUTE LYMPHOCYTES (AUTO) 0.7 10^3/uL (0.5-4.7); ABSOLUTE MONOCYTES (AUTO) 0.7 10^3/uL (0.1-1.4); ABSOLUTE NEUT (AUTO) 3.6 10^3/uL (1.7-8.2); BASOPHILS % (AUTO) 1.5 % (0-2); EOSINOPHILS % (AUTO) 1.5 % (0-6); HEMATOCRIT 28.4 % (36.0-47.0); HEMOGLOBIN 9.2 g/dL (12.0-15.5); HGB HCT DIFFERENCE -0.8; MEAN CORPUSCULAR HEMOGLOBIN 32.3 pg (27.0-33.4); MEAN CORPUSCULAR HGB CONC 32.2 g/dL (32.0-36.0); RED BLOOD COUNT 2.83 10^6/uL (3.72-5.28); RED CELL DISTRIBUTION WIDTH 21.8 % (11.5-14.0); WHITE BLOOD COUNT 5.1 10^3/uL (4.0-10.5)
[2017-07-18 18:18] LABS: MEAN CORPUSCULAR VOLUME 101 fl (80-97)
[2017-07-18 18:24] LABS: ALANINE AMINOTRANSFERASE 17 U/L (9-52); ALBUMIN 3.3 g/dL (3.5-5.0); ALKALINE PHOSPHATASE 112 U/L (38-126); ANION GAP 9 (5-19); ASPARTATE AMINO TRANSFERASE 18 U/L (14-36); BILIRUBIN,DIRECT 0.4 mg/dL (0.0-0.4); BILIRUBIN,TOTAL 0.4 mg/dL (0.2-1.3); BLOOD UREA NITROGEN 48 mg/dL (7-20); CALCIUM 8.5 mg/dL (8.4-10.2); CARBON DIOXIDE 26 mmol/L (22-30); CHLORIDE 101 mmol/L (98-107); CREATINE KINASE 22 U/L (30-135); CREATININE RESULT 5.88 mg/dL (0.52-1.25); GLUCOSE 114 mg/dL (75-110); POTASSIUM 5.8 mmol/L (3.6-5.0); SODIUM 135.9 mmol/L (137-145); TOTAL PROTEIN 6.3 g/dL (6.3-8.2)
--- NOTE | 2017-07-18 18:53 | EKG REPORT ---
SEVERITY:- ABNORMAL ECG - ATRIAL FIBRILLATION RIGHT BUNDLE BRANCH BLOCK LEFT VENTRICULAR HYPERTROPHY : Confirmed by: Michael Foster MD 18-Jul-2017 18:52:35
[2017-07-18] MEDS ORDERED: PANTOPRAZOLE SODIUM 40 MG VIAL IV ONE (19:52)
[2017-07-18] MEDS ORDERED: BUMETANIDE INJ/PF 1 MG/4 ML SDV IV ONE (20:00)
[2017-07-18 20:10] LABS: PROTHROMBIN TIME 24.5 SEC (11.4-15.4)
[2017-07-18 20:11] LABS: PARTIAL THROMBOPLASTIN TIME 44.9 SEC (23.5-35.8)
[2017-07-18 20:41] VITALS: BP 120/63
--- NOTE | 2017-07-19 13:18 | XCELERA REPORT ---
[address] [address] Lower Extremity Venous Evaluation Name: TAMMY BUCKLEY Age: 77 yrs Gender: Female : 1940 Patient Status: Emergency Patient Location: ER Study Date: 07/18/2017 05:12 PM Procedure: Color flow and duplex imaging of the veins of the right lower extremity as well as the left Common Femoral vein. Reason For Study: RLE swelling Ordering Physician: TANIA ABDI Performed By: Moira Lui Right Sided Venous Evaluation Normal vessel filling wall to wall, compression and augmentation as well as Colour flow down to the infrageniculate veins. Some leg edema. Left Sided Venous Evaluation The left common femoral vein is fully compressible. Spontaneous and phasic flow is present in the left common femoral vein. Interpretation Summary No duplex evidence of DVT or obstruction in the right lower extremity nor in the left Common Femoral vein. : TANIA ABDI > Colt Arvizu
== END 2017-07-18 21:06 | disposition home or self-care (01) ==
LOC: ER 15:17
DX: I13.2 Hypertensive heart and chronic kidney disease with heart failure and with stage 5 chronic kidney disease, or end stage renal disease (principal); I50.40 Unspecified combined systolic (congestive) and diastolic (congestive) heart failure; E11.22 Type 2 diabetes mellitus with diabetic chronic kidney disease; N18.6 End stage renal disease; Z99.2 Dependence on renal dialysis; Z95.2 Presence of prosthetic heart valve; I25.2 Old myocardial infarction; R05 Cough; I48.91 Unspecified atrial fibrillation; J44.9 Chronic obstructive pulmonary disease, unspecified; Z99.81 Dependence on supplemental oxygen; F17.200 Nicotine dependence, unspecified, uncomplicated; Z88.0 Allergy status to penicillin
CPT/HCPCS: 93005; 36591; 99285; 96375; 96365; 36415; 82550; 85025; 85610; 85730; 80053; 83880; 93971 ×2; 71010; 93010; J3490; J1940; C9113; S0164

== ENCOUNTER 2017-10-06 09:39 | Inpatient (IN) | payer MEDICARE, OTHER ==
[2017-10-06] MEDS ORDERED: NORMAL SALINE 500 ML IV ONE (10:22)
--- NOTE | 2017-10-06 10:26 | ER Document Report ---
ED General - General Chief Complaint: General Weakness Stated Complaint: WEAKNESS Time Seen by Provider: 10/06/17 10:08 Notes: The patient is a 77-year-old female, past medical history ESRD (TuThSa), presents with 2 days of generalized weakness and poor appetite. She also had watery diarrhea and a productive cough for the past day. She has not missed any dialysis sessions. Patient makes a small amount of urine and said that it has been painful to urinate over the past 2 days. She denies fevers, chest pain , shortness of breath, abdominal pain, leg swelling, nausea, vomiting or back pain. TRAVEL OUTSIDE OF THE [place] IN LAST 30 DAYS: No - Related Data Allergies/Adverse Reactions: Penicillins Allergy (Severe, Verified 01/16/17 10:56) Swelling of hands and/or feet vancomycin [Vancomycin] Adverse Reaction (Intermediate, Verified 01/16/17 10:56) Swelling of hands and/or feet hydrochlorothiazide [From Dyazide] Adverse Reaction (Verified 01/16/17 10:56) Swelling of hands and/or feet triamterene [From Dyazide] Adverse Reaction (Verified 01/16/17 10:56) Swelling of hands and/or feet Past Medical History - General Information source: Patient - Social History Smoking Status: Unknown if Ever Smoked Family History: COPD, DM, Hypertension - Past Medical History Cardiac Medical History: Reports: Hx Atrial Fibrillation, Hx Congestive Heart Failure - Systolic and diastolic, Hx Heart Attack, Hx Hypercholesterolemia, Hx Hypertension, Hx Heart Murmur - Aortic and mitral valve replacement. Denies: Hx Coronary Artery Disease Pulmonary Medical History: Reports: Hx COPD, Hx Pneumonia Denies: Hx Asthma, Hx Bronchitis Neurological Medical History: Denies: Hx Cerebrovascular Accident, Hx Seizures Endocrine Medical History: Reports: Hx Diabetes Mellitus Type 2 Renal/ Medical History: Reports: Hx End Stage Renal Disease, Hx Hemodialysis. Denies: Hx Peritoneal Dialysis GI Medical History: Reports: Hx Colonoscopy, Hx Endoscopy Musculoskeltal Medical History: Reports Hx Arthritis, Reports Hx Gout Psychiatric Medical History: Denies: Hx Depression Past Surgical History: Reports: Hx Cardiac Surgery - artificial valves x2, Hx Hysterectomy, Hx Orthopedic Surgery - Back surgery 2, Hx Valve Replacement - Mitral and aortic valve replacement, Other - EGD, colonoscopy, right IJV PermCath - Immunizations Hx Diphtheria, Pertussis, Tetanus Vaccination: Yes Hx Pneumococcal Vaccination: 07/28/13 Review of Systems - Review of Systems Notes: REVIEW OF SYSTEMS: CONSTITUTIONAL: -fevers, -chills EENT: -eye pain, -difficulty swallowing, -nasal congestion CARDIOVASCULAR: -chest pain, -syncope. RESPIRATORY: -cough, -SOB GASTROINTESTINAL: -abdominal pain, -nausea, -vomiting, +diarrhea GENITOURINARY: -dysuria, -hematuria MUSCULOSKELETAL: -back pain, -neck pain SKIN: -rash or skin lesions. HEMATOLOGIC: -easy bruising or bleeding. LYMPHATIC: -swollen, enlarged glands. NEUROLOGICAL: -altered mental status or loss of consciousness, -headache, - neurologic symptoms PSYCHIATRIC: -anxiety, -depression. ALL OTHER SYSTEMS REVIEWED AND NEGATIVE. Physical Exam - Vital signs Vitals: Pulse Resp BP Pulse Ox 120 H 18 113/76 97 10/06/17 09:51 10/06/17 09:51 10/06/17 09:51 10/06/17 09:51 - Notes Notes: PHYSICAL EXAMINATION: GENERAL: Well-appearing, well-nourished and in no acute distress. HEAD: Atraumatic, normocephalic. EYES: Pupils equal round and reactive to light, extraocular movements intact, sclera anicteric, conjunctiva are normal. ENT: nares patent, oropharynx clear without exudates. Moist mucous membranes. NECK: Normal range of motion, supple without lymphadenopathy LUNGS: No respiratory distress. Crackles in right lower lung. HEART: Tachycardia, irregular rhythm. CHEST WALL: Right chest wall dialysis catheter. ABDOMEN: Soft, nontender, normoactive bowel sounds. No guarding, no rebound. No masses appreciated. EXTREMITIES: Normal range of motion, no pitting or edema. No cyanosis. NEUROLOGICAL: Cranial nerves grossly intact. Normal speech, normal gait. Normal sensory and motor exams. PSYCH: Normal mood, normal affect. SKIN: Warm, Dry, normal turgor, no rashes or lesions noted. Course - Re-evaluation Re-evalutation: Patient arrives with 2 days of generalized weakness and watery diarrhea with a cough. She is also found to be in A. fib with RVR. Blood work is consistent with her known ESRD and she does not appear to be fluid overloaded. Chest x- ray shows possible right lower lobe pneumonia. With the productive cough and Hx of ESRD, will cover her for HCAP. Patient provided diltiazem and blood pressure dropped. Patient provided IV digoxin with improvement in her heart rate from 140's down to 110's. 10/06/17 15:[address] Martines and he recommends an additional dose of 0.25 digoxin due to the continuing A. fib w/ RVR and he will consult. Pt's troponin is 0.056, but she is not having any chest pain. This most likely mild demand ischemia that may be related to her ESRD. She has had higher values in the past. Patient also found to have some evidence of UTI. Abx already started and urine culture sent. Her PMD is Dr. Brnach. She requires admission for further evaluation and treatment. 10/06/17 16:[address] Biggs and he has accepted patient. Will admit as Inpatient to [facility]. - Vital Signs Vital signs: Temp Pulse Resp BP Pulse Ox 137 H 20 98/75 L 90 L 10/06/17 10:23 10/06/17 14:31 10/06/17 14:31 10/06/17 14:28 - Laboratory Result Diagrams: 10/06/17 10:50 10/06/17 12:03 Laboratory results interpreted by me: 10/06/17 10/06/17 10/06/17 10:50 10:50 12:03 WBC 3.8 L RBC 3.58 L Hgb 11.5 L Hct 35.0 L MCV 98 H RDW 20.8 H Lymphocytes % (Manual) 12 L Monocytes % (Manual) 23 H PT 30.0 H APTT 42.4 H BUN 50 H Creatinine 7.12 H Est GFR ( Amer) 7 L Est GFR (Non-Af Amer) 6 L Direct Bilirubin 1.0 H Total Protein 8.3 H Urine Protein Urine Blood Urine Urobilinogen Ur Leukocyte Esterase 10/06/17 13:18 WBC RBC Hgb Hct MCV RDW Lymphocytes % (Manual) Monocytes % (Manual) PT APTT BUN Creatinine Est GFR ( Amer) Est GFR (Non-Af Amer) Direct Bilirubin Total Protein Urine Protein >=500 H Urine Blood LARGE H Urine Urobilinogen 2.0 H Ur Leukocyte Esterase MODERATE H - Diagnostic Test Radiology reviewed: Image reviewed, Reports reviewed Radiology results interpreted by me: CXR: Cardiomegaly with mild pulmonary edema. Cannot exclude a right lower lobe or middle lobe pneumonia. - EKG Interpretation by Nh EKG shows normal: ST-T Waves Rate: Tachycardia Rhythm: A.Fib [place]/QRS: RBBB Voltage: Consistant with LVH When compared to previous EKG there are: Changes noted - Now in RVR Critical Care Note - Critical Care Note Total time excluding time spent on procedures (mins): 55 Discharge - Discharge Clinical Impression: Atrial fibrillation with rapid ventricular response UTI (urinary tract infection) Qualifiers: Urinary tract infection type: site unspecified Hematuria presence: with hematuria Qualified Code(s): N39.0 - Urinary tract infection, site not specified ; R31.9 - Hematuria, unspecified; R31.9 - Hematuria, unspecified Pneumonia Qualifiers: Pneumonia type: due to unspecified organism Laterality: right Lung location: lower lobe of lung Qualified Code(s): J18.1 - Lobar pneumonia, unspecified organism Sepsis Qualifiers: Sepsis type: sepsis due to unspecified organism Qualified Code(s): A41.9 - Sepsis, unspecified organism Condition: Stable Disposition: ADMITTED INPATIENT Admitting Provider: [facility] [place] [facility] Admitted: [facility] Referrals: LUIZ BRANCH MD [Primary Care Provider] - Follow up as needed
[2017-10-06 11:10] LABS: HEMOGLOBIN 11.5 g/dL (12.0-15.5); RED CELL DISTRIBUTION WIDTH 20.8 % (11.5-14.0); WHITE BLOOD COUNT 3.8 10^3/uL (4.0-10.5)
[2017-10-06] MEDS ORDERED: DILTIAZEM HCL/D5W 125 MG/125 ML RTUINJ IV PRN (11:18)
[2017-10-06] MEDS ORDERED: DILTIAZEM HCL INJ 25 MG/5 ML VIAL IV ONE (11:18)
[2017-10-06 11:19] LABS: MEAN CORPUSCULAR HEMOGLOBIN 32.1 pg (27.0-33.4); MEAN CORPUSCULAR HGB CONC 32.8 g/dL (32.0-36.0); MEAN CORPUSCULAR VOLUME 98 fl (80-97); PLATELET COUNT 151 10^3/uL (150-450); RED BLOOD COUNT 3.58 10^6/uL (3.72-5.28)
[2017-10-06 11:39] LABS: PARTIAL THROMBOPLASTIN TIME 42.4 SEC (23.5-35.8)
[2017-10-06 11:44] LABS: ABSOLUTE LYMPHOCYTES# (MANUAL) 0.5 10^3/uL (0.5-4.7); ABSOLUTE MONOCYTES # (MANUAL) 0.9 10^3/uL (0.1-1.4); ABSOLUTE NEUTROPHILS# (MANUAL) 2.5 10^3/uL (1.7-8.2); BASOPHILS % (MANUAL) 0 % (0-2); EOSINOPHILS % (MANUAL) 0 % (0-6); LYMPHOCYTES % (MANUAL) 12 % (13-45); MONOCYTES % (MANUAL) 23 % (3-13); SEGMENTED NEUTROPHILS % (MAN) 65 % (42-78); TOTAL CELLS COUNTED 100
[2017-10-06 11:45] LABS: ANISOCYTOSIS 2+; PLATELET COMMENT ADEQUATE
[2017-10-06 12:48] LABS: ALANINE AMINOTRANSFERASE 23 U/L (9-52); ALBUMIN 4.5 g/dL (3.5-5.0); ALKALINE PHOSPHATASE 113 U/L (38-126); ANION GAP 17 (5-19); ASPARTATE AMINO TRANSFERASE 23 U/L (14-36); BLOOD UREA NITROGEN 50 mg/dL (7-20); CALCIUM 9.6 mg/dL (8.4-10.2); CARBON DIOXIDE 23 mmol/L (22-30); CHLORIDE 99 mmol/L (98-107); CREATINE KINASE 48 U/L (30-135); GLUCOSE 94 mg/dL (75-110); POTASSIUM 4.9 mmol/L (3.6-5.0); SODIUM 139.3 mmol/L (137-145); TOTAL PROTEIN 8.3 g/dL (6.3-8.2)
--- NOTE | 2017-10-06 13:28 | EKG REPORT ---
SEVERITY:- ABNORMAL ECG - ATRIAL FIBRILLATION, V-RATE 90-170 RIGHT BUNDLE BRANCH BLOCK LVH WITH SECONDARY REPOLARIZATION ABNORMALITY OLD INFERIOR [place] : Confirmed by: Michael Foster MD 06-Oct-2017 13:27:01
[2017-10-06 14:03] LABS: APPEARANCE,URINE CLOUDY; BILIRUBIN,URINE NEGATIVE (NEGATIVE); COLOR,URINE AMBER; GLUCOSE, URINE NEGATIVE (NEGATIVE); KETONES,URINE NEGATIVE (NEGATIVE); LEUKOCYTE ESTERASE,URINE MODERATE (NEGATIVE); NITRITE,URINE NEGATIVE (NEGATIVE); PROTEIN,URINE >=500 mg/dL (NEGATIVE); URINE SPECIFIC GRAVITY 1.022
[2017-10-06] MEDS ORDERED: DIGOXIN INJ 0.5 MG/2 ML AMPULE IV ONE ×2 (14:45→15:59)
[2017-10-06] MEDS ORDERED: CEFTRIAXONE 1 GM/D5W RTU 1 GM/50 ML RTUPB IV ONE (14:53)
[2017-10-06] MEDS ORDERED: CEFTRIAXONE SODIUM 1,000 MG in NORMAL SALINE 100 ML IV ONE (16:00)
--- NOTE | 2017-10-06 16:03 | RADIOLOGY REPORT (SQ) ---
EXAM DESCRIPTION: CHEST SINGLE VIEW COMPLETED DATE/TIME: 10/06/2017 3:48 pm REASON FOR STUDY: cough COMPARISON: 07/18/2017 EXAM PARAMETERS: NUMBER OF VIEWS: One view. TECHNIQUE: Single frontal radiographic view of the chest acquired. RADIATION DOSE: NA LIMITATIONS: None. FINDINGS: LUNGS AND PLEURA: Small right pleural effusion. Pulmonary vascular congestion. Increased opacification in the right lung base. MEDIASTINUM AND HILAR STRUCTURES: No masses. Contour normal. HEART AND VASCULAR STRUCTURES: Enlarged cardiac silhouette. Pulmonary vascular congestion. Mild pul monary edema cannot be excluded. BONES: No acute findings. HARDWARE: Dual-lumen catheter on the right, sternotomy wires. OTHER: No other significant finding. IMPRESSION: Cardiomegaly with mild pulmonary edema. Cannot exclude a right lower lobe or middle lob e pneumonia. TECHNICAL DOCUMENTATION: JOB ID: [id number] [employer]- All Rights Reserved Reading location - IP/workstation name: [email or web address]
[2017-10-06] MEDS ORDERED: LINEZOLID 300 ML IV ONE (16:07)
[2017-10-06] MEDS ORDERED: ACETAMINOPHEN 325 MG TABLET PO PRN (16:58)
[2017-10-06] MEDS ORDERED: ONDANSETRON HCL INJ/PF 4 MG/2 ML SDV IV PRN (16:58)
[2017-10-06] MEDS ORDERED: DEXTROSE 5%-WATER 500 ML with AMIODARONE HCL 900 MG IV PRN ×2 (17:05)
--- NOTE | 2017-10-06 17:29 | PDOC H&P ---
History of Present Illness Admission Date/PCP: 10/06/17 16:25 LUIZ BENEDICT MD Patient complains of: Diarrhea and Cough History of Present Illness: TAMMY BUCKLEY is a 77 year old female presented to the hospital with complaint of diarrhea and cough for the last 2 days. Patient also complained of weakness. Patient is a poor historian therefore history is limited and there was no family present. Per documentation from the ER patient complained of watery diarrhea and cough. Per ER patient had not missed any dialysis appointments. ER confirms that patient is seen by Dr. Nelson for dialysis. ER reported that they thought patient had pneumonia was given Rocephin and linezolid. ER contacted Dr. Martines and patient was given dig and then given additional dose of dig. Past Medical History Cardiac Medical History: Reports: Atrial Fibrillation, Congestive Heart Failure - Systolic and diastolic, Myocardial Infarction, Hyperlipidema, Hypertension, Heart Murmur - Aortic and mitral valve replacement. Denies: Coronary Artery Disease Pulmonary Medical History: Reports: Chronic Obstructive Pulmonary Disease (COPD) , Pneumonia Denies: Asthma, Bronchitis Neurological Medical History: Denies: Seizures Endocrine Medical History: Reports: Diabetes Mellitus Type 2 Renal/ Medical History: Reports: End Stage Renal Disease Musculoskeltal Medical History: Reports: Arthritis, Gout Psychiatric Medical History: Denies: Depression Hematology: Denies: Anemia Past Surgical History Past Surgical History: Reports: Hysterectomy, Orthopedic Surgery - Back surgery 2, Valve Replacement - Mitral and aortic valve replacement, Other - EGD, colonoscopy, right IJV PermCath Social History Information Source: Patient Lives with: Spouse/Significant other Smoking Status: Unknown if Ever Smoked Frequency of Alcohol Use: None Hx Recreational Drug Use: No Drugs: None Hx Prescription Drug Abuse: No - Advance Directive Resuscitation Status: Full Code Family History Family History: COPD, DM, Hypertension Parental Family History Reviewed: Yes Children Family History Reviewed: Yes Sibling(s) Family History Reviewed.: Yes Medication/Allergy Allergies/Adverse Reactions: Penicillins Allergy (Severe, Verified 01/16/17 10:56) Swelling of hands and/or feet vancomycin [Vancomycin] Adverse Reaction (Intermediate, Verified 01/16/17 10:56) Swelling of hands and/or feet hydrochlorothiazide [From Dyazide] Adverse Reaction (Verified 01/16/17 10:56) Swelling of hands and/or feet triamterene [From Dyazide] Adverse Reaction (Verified 01/16/17 10:56) Swelling of hands and/or feet Review of Systems Constitutional: PRESENT: weakness. ABSENT: chills, fever(s), headache(s), weight gain, weight loss Eyes: ABSENT: visual disturbances Ears: ABSENT: hearing changes Respiratory: PRESENT: cough, dyspnea Neurological: PRESENT: weakness Physical Exam Vital Signs: Temp Pulse Resp BP Pulse Ox 137 H 20 98/75 L 90 L 10/06/17 10:23 10/06/17 14:31 10/06/17 14:31 10/06/17 14:28 General appearance: PRESENT: no acute distress, well-developed, well-nourished Head exam: PRESENT: atraumatic, normocephalic Eye exam: PRESENT: conjunctiva pink, EOMI. ABSENT: scleral icterus Ear exam: PRESENT: normal external ear exam Mouth exam: PRESENT: moist, tongue midline Neck exam: ABSENT: carotid bruit, JVD, lymphadenopathy, thyromegaly Respiratory exam: PRESENT: clear to auscultation kee, rales, other - dialysis cathater in place on right side. ABSENT: rhonchi, wheezes Cardiovascular exam: PRESENT: irregular rhythm. ABSENT: diastolic murmur, rubs , systolic murmur Pulses: PRESENT: normal dorsalis pedis pul Vascular exam: PRESENT: normal capillary refill GI/Abdominal exam: PRESENT: normal bowel sounds, soft. ABSENT: distended, guarding, mass, organolmegaly, rebound, tenderness Rectal exam: PRESENT: deferred Extremities exam: PRESENT: full ROM. ABSENT: calf tenderness, clubbing, pedal edema Musculoskeletal exam: PRESENT: full ROM Neurological exam: PRESENT: alert, awake, oriented to person, oriented to place , oriented to time. ABSENT: motor sensory deficit Psychiatric exam: PRESENT: appropriate affect, normal mood. ABSENT: homicidal ideation, suicidal ideation Skin exam: PRESENT: dry, intact, warm. ABSENT: cyanosis, rash Results Impressions: Chest X-Ray 10/06/17 14:47 IMPRESSION: Cardiomegaly with mild pulmonary edema. Cannot exclude a right lower lobe or middle lobe pneumonia. Assessment & Plan - Diagnosis (1) Atrial fibrillation with rapid ventricular response Is this a current diagnosis for this admission?: Yes Plan: Contacted Dr. Martines who recommended given patient an amiodarone bolus and starting patient on amiodarone drip. Will follow up with patient's heart rate. Will order for 2D echo. Patient with history of known A. fib. Will continue patient on Coumadin and check daily INRs. (2) Pleural effusion Is this a current diagnosis for this admission?: Yes Plan: Small right pleural effusion secondary to A. fib with RVR: Once heart rate has improved and blood pressure has improved will resolve with dialysis (3) Dyspnea Is this a current diagnosis for this admission?: Yes Plan: Secondary to A. fib with RVR and pulmonary vascular congestion: Once patient's heart rate is improved and has dialysis patient's respiratory function will improve. Patient placed on amiodarone and hopefully this will help with rate control. (4) Pneumonia Qualifiers: Pneumonia type: due to unspecified organism Laterality: right Lung location: lower lobe of lung Qualified Code(s): J18.1 - Lobar pneumonia, unspecified organism Plan: Ruled out most likely consistent with pulmonary venous congestion: We will check chest x-ray once patient has had dialysis and heart rate is under better control. Patient does not appear to be septic. (5) Hypotension Qualifiers: Hypotension type: other hypotension type Qualified Code(s): I95.89 - Other hypotension Is this a current diagnosis for this admission?: Yes Plan: Secondary to A. fib with RVR: Presentation currently not consistent with sepsis. Will monitor closely. (6) Pulmonary vascular congestion Is this a current diagnosis for this admission?: Yes Plan: A. fib with RVR: Patient placed on amiodarone. Once heart rate is improved and patient has dialysis pulmonary congestion will resolve. (7) ESRD (end stage renal disease) on dialysis Is this a current diagnosis for this admission?: Yes Plan: Dr. Nelson has been consulted for dialysis (8) Pulmonary hypertension, moderate to severe Is this a current diagnosis for this admission?: Yes Plan: Supportive of care for now. (9) H/O prosthetic aortic valve replacement Is this a current diagnosis for this admission?: Yes Plan: Aortic and mitral valve replacement: Coumadin - Time Time Spent: 30 to 50 Minutes
[2017-10-06] MEDS ORDERED: AMIODARONE HCL 150 MG in DEXTROSE 5%-WATER 100 ML IV ONE (18:00)
[2017-10-06 18:01] LABS: INTERNATIONAL RATION (INR) 2.73; PROTHROMBIN TIME 30.3 SEC (11.4-15.4)
[2017-10-06] MEDS ORDERED: CEFEPIME 1 GM/D5W RTU 1 GM/50 ML RTUPB IV SCH (19:45)
[2017-10-06] MEDS ORDERED: CEFEPIME 2 GM/D5W RTU 2 GM/50 ML RTUPB IV ONE (20:30)
--- NOTE | 2017-10-06 21:01 | PDOC CONSULTATION ---
Consultation Consult Date: 10/06/17 Attending physician:: CORDELIA CLARK Consult reason:: Atrial fibrillation with rapid ventricular response History of Present Illness Admission Date/PCP: 10/06/17 16:25 LUIZ BENEDICT MD Patient complains of: Shortness of breath History of Present Illness: TAMMY BUCKLEY is a 77 year old female presented to the hospital with complaint of diarrhea and cough for the last 2 days. Patient also complained of weakness. Patient is a poor historian therefore history is limited and there was no family present. Per documentation from the ER patient complained of watery diarrhea and cough. Per ER patient had not missed any dialysis appointments. ER confirms that patient is seen by Dr. Nelson for dialysis. ER reported that they thought patient had pneumonia was given Rocephin and linezolid. ER contacted Dr. Martines and patient was given dig and then given additional dose of dig. This history was reviewed and confirmed. Patient has long-standing history of atrial fibrillation, valvular heart disease and is status post aortic and mitral valve replacement with mechanical valve. There has been very gradual but definite deterioration in her general status. Patient today was noted to be confused when I saw her. Patient had multiple previous admission with atrial fibrillation with rapid ventricular response and this has been difficult to control. Past Medical History Cardiac Medical History: Reports: Atrial Fibrillation, Congestive Heart Failure - Systolic and diastolic, Myocardial Infarction, Hyperlipidema, Hypertension, Heart Murmur - Aortic and mitral valve replacement. Denies: Coronary Artery Disease Pulmonary Medical History: Reports: Chronic Obstructive Pulmonary Disease (COPD) , Pneumonia Denies: Asthma, Bronchitis Neurological Medical History: Denies: Seizures Endocrine Medical History: Reports: Diabetes Mellitus Type 2 Renal/ Medical History: Reports: End Stage Renal Disease Musculoskeltal Medical History: Reports: Arthritis, Gout Psychiatric Medical History: Denies: Depression Hematology: Denies: Anemia Past Surgical History Past Surgical History: Reports: Hysterectomy, Orthopedic Surgery - Back surgery 2, Valve Replacement - Mitral and aortic valve replacement, Other - EGD, colonoscopy, right IJV PermCath Social History Information Source: [facility] Records Lives with: Spouse/Significant other Smoking Status: Unknown if Ever Smoked Frequency of Alcohol Use: None Hx Recreational Drug Use: No Drugs: None Hx Prescription Drug Abuse: No - Advance Directive Resuscitation Status: Full Code Family History Family History: COPD, DM, Hypertension Parental Family History Reviewed: Yes Children Family History Reviewed: Yes Sibling(s) Family History Reviewed.: Yes Medication/Allergy Home Medications: Atorvastatin Calcium [Lipitor 20 mg Tablet] 20 mg PO QHS 10/06/17 Ferrous Sulfate [Iron] 325 mg PO BID 10/06/17 Metolazone [Zaroxolyn 5 mg Tablet] 5 mg PO BID 10/06/17 Metoprolol Tartrate [Lopressor 25 mg Tablet] 12.5 mg PO Q12 10/06/17 Midodrine HCl 10 mg PO BID 10/06/17 Pantoprazole Sodium [Protonix] 40 mg PO BID 10/06/17 Warfarin Sodium [Coumadin 4 mg Tablet] 8 mg PO [id number]@199910/06/17 Warfarin Sodium [Coumadin 7.5 mg Tablet] 7.5 mg PO [id number]@199910/06/17 Allergies/Adverse Reactions: Penicillins Allergy (Severe, Verified 01/16/17 10:56) Swelling of hands and/or feet vancomycin [Vancomycin] Adverse Reaction (Intermediate, Verified 01/16/17 10:56) Swelling of hands and/or feet hydrochlorothiazide [From Dyazide] Adverse Reaction (Verified 01/16/17 10:56) Swelling of hands and/or feet triamterene [From Dyazide] Adverse Reaction (Verified 01/16/17 10:56) Swelling of hands and/or feet Review of Systems ROS unobtainable: Due to mental status Physical Exam Vital Signs: Temp Pulse Resp BP Pulse Ox 137 H 20 109/82 94 10/06/17 10:23 10/06/17 19:30 10/06/17 19:30 10/06/17 19:30 Exam: GENERAL: well-nourished and in no acute distress. Patient is alert but not oriented to place time or person. Patient also noted to be somewhat difficult to arouse. HEAD: Atraumatic, normocephalic. EYES: Pupils equal round and reactive to light, extraocular movements intact, sclera anicteric, conjunctiva are normal. ENT: TMs normal, nares patent, oropharynx clear without exudates. Moist mucous membranes. No oral ulcerations or bleeding gums noted NECK: supple without lymphadenopathy or JVD. Trachea is central. No cervical or axillary lymphadenopathy noted. Carotids are 2+ LUNGS: Breath sounds bibasilar fine crackles at bases. No significant dullness noted. CHEST: Palpation of chest wall shows no significant chest wall tenderness. HEART: [place] FUR STYLIST, No PSH, 2/6 MICHEAL aortic area, 1/6 camacho systolic murmur mitral area, rubs or gallops. Prosthetic valve sounds seems to be crisp ABDOMEN: Soft, no significant tenderness appreciated, normoactive bowel sounds. No guarding, no rebound. No rigidity noted . No masses appreciated. EXTREMITIES: Pedal pulses are 1-2+, no calf tenderness noted, Trace + pedal edema noted. No clubbing or cyanosis. NEUROLOGICAL: Patient is alert but is not able to participate in neurological exam because of patient's current mental status PSYCH: Patient cannot participate in a neurologic and psych exam because of the patient's current mental status SKIN: No significant ecchymosis, rash, ulcerations or signs of pruritus noted. MUSCULOSKELETAL EXAM: No significant joint swelling noted. Results Laboratory Results: 10/06/17 17:43 Lactic Acid 1.0 10/06/17 17:43 Troponin I 0.054 EKG Comments: Atrial fibrillation with rapid ventricular response and right bundle branch block pattern. Impressions: Chest X-Ray 10/06/17 14:47 IMPRESSION: Cardiomegaly with mild pulmonary edema. Cannot exclude a right lower lobe or middle lobe pneumonia. Assessment & Plan - Diagnosis (1) Atrial fibrillation with rapid ventricular response Is this a current diagnosis for this admission?: Yes (2) Dyspnea Qualifiers: Dyspnea type: unspecified Qualified Code(s): R06.00 - Dyspnea, unspecified Is this a current diagnosis for this admission?: Yes (3) H/O prosthetic mitral valve Is this a current diagnosis for this admission?: Yes (4) Hypotension (arterial) Qualifiers: Hypotension type: unspecified hypotension type Qualified Code(s): I95.9 - Hypotension, unspecified Is this a current diagnosis for this admission?: Yes (5) Congestive heart failure (CHF) Qualifiers: Heart failure type: unspecified Heart failure chronicity: acute on chronic Qualified Code(s): I50.9 - Heart failure, unspecified Is this a current diagnosis for this admission?: Yes - Notes Notes: Atrial fibrillation: Patient noted to be in very poor general status. At this point may consider amiodarone drip as the only option and antiarrhythmic if patient developed significant hypotension preventing further escalation of beta- val and or calcium channel val therapy for heart rate control. Patient does have pulmonary hypertension. However choice is very limited here. In view of end-stage renal disease, would limit digoxin dose. May use vasopressin IV/Midodrin p.o. etc. to bring a blood pressure if needed. Patient has chronic atrial fibrillation for many years therefore unlikely to respond to cardioversion. Continue chronic anticoagulation with Coumadin as patient has prosthetic mechanical valves. Prosthetic mechanical valves: Seems to be functioning normally on auscultation but will consider obtaining a 2D echocardiogram. As regards end-stage renal disease on dialysis, recommend dialysis to remove fluid. Dyspnea: Related to CHF brought on by atrial fibrillation with rapid ventricular response. Patient likely to also have volume overload in setting of myocardial dysfunction and possibly valvular heart disease. Congestive heart failure: Noted based on review of chest x-ray. At this point recommend removal of fluid on dialysis. Maintain oxygenation. May consider BiPAP therapy etc. I do believe that patient may end up needing intubation and vasopressors. Overall prognosis is poor. CODE STATUS may need to be addressed. - Time Time Spent: 30 to 50 Minutes - CODE STATUS was discussed, patient remains full code. Surrogate decision-maker patient's son. Multiple medical problems were addressed. More than 50% of the time spent coordinating care, discussing management plans with involved caregivers. Management plans discussed with involved personnels. Medical decision making was of moderate to high complexity , patient's has multiple comorbidities. Medications reviewed and adjusted accordingly: Yes
[2017-10-06] MEDS ORDERED: WARFARIN SODIUM 3 MG TABLET ONE (22:46)
[2017-10-06] MEDS: WARFARIN SODIUM 3 MG TABLET PO SCH (23:06)
[2017-10-07 05:45] LABS: HEMATOCRIT 34.4 % (36.0-47.0); MEAN CORPUSCULAR HEMOGLOBIN 31.8 pg (27.0-33.4); MEAN CORPUSCULAR VOLUME 99 fl (80-97); PLATELET COUNT 117 10^3/uL (150-450); RED BLOOD COUNT 3.47 10^6/uL (3.72-5.28); RED CELL DISTRIBUTION WIDTH 20.1 % (11.5-14.0); WHITE BLOOD COUNT 3.4 10^3/uL (4.0-10.5)
[2017-10-07 06:07] LABS: FREE T4 (FREE THYROXINE) 1.48 ng/dL (0.78-2.19)
[2017-10-07 06:21] LABS: THYROID STIMULATING HORMONE 3.1 uIU/mL (0.47-4.68)
[2017-10-07 06:32] LABS: ALANINE AMINOTRANSFERASE 23 U/L (9-52); ALKALINE PHOSPHATASE 96 U/L (38-126); ANION GAP 16 (5-19); ASPARTATE AMINO TRANSFERASE 20 U/L (14-36); BLOOD UREA NITROGEN 59 mg/dL (7-20); CALCIUM 9.2 mg/dL (8.4-10.2); CARBON DIOXIDE 22 mmol/L (22-30); CHLORIDE 101 mmol/L (98-107); GLUCOSE 101 mg/dL (75-110); POTASSIUM 4.9 mmol/L (3.6-5.0); SODIUM 138.6 mmol/L (137-145); TOTAL PROTEIN 7.5 g/dL (6.3-8.2)
[2017-10-07 06:35] LABS: ABSOLUTE LYMPHOCYTES# (MANUAL) 0.2 10^3/uL (0.5-4.7); ABSOLUTE MONOCYTES # (MANUAL) 0.5 10^3/uL (0.1-1.4); ABSOLUTE NEUTROPHILS# (MANUAL) 2.7 10^3/uL (1.7-8.2); BASOPHILS % (MANUAL) 2 % (0-2); EOSINOPHILS % (MANUAL) 0 % (0-6); LYMPHOCYTES % (MANUAL) 6 % (13-45); MONOCYTES % (MANUAL) 14 % (3-13); SEGMENTED NEUTROPHILS % (MAN) 78 % (42-78); TOTAL CELLS COUNTED 100
[2017-10-07 06:38] LABS: ANISOCYTOSIS 2+; OVALOCYTES SLIGHT; PLATELET COMMENT DECREASED; PLATELET LARGE PRESENT; POIKILOCYTOSIS SLIGHT; POLYCHROMASIA SLIGHT; SCHISTOCYTES SLIGHT; TOXIC GRANULATION SLIGHT; TOXIC VACUOLATION PRESENT
--- NOTE | 2017-10-07 10:31 | PDOC PROGRESS REPORT ---
Subjective Progress Note for:: 10/07/17 Subjective:: Pt states that she is doing better. Nursing states that pt has been stable. Reason For Visit: A FIB WITH RVR Physical Exam Vital Signs: Temp Pulse Resp BP Pulse Ox 97.6 F 97 16 101/79 98 10/07/17 03:17 10/07/17 07:00 10/07/17 03:17 10/07/17 08:01 10/07/17 07:01 Intake & Output 10/06/17 10/07/17 10/08/17 06:59 06:59 06:59 Intake Total 55 Output Total 0 Balance 55 Weight 64.2 kg General appearance: PRESENT: no acute distress, thin, well-developed Head exam: PRESENT: atraumatic, normocephalic Eye exam: PRESENT: conjunctiva pink, EOMI. ABSENT: scleral icterus Ear exam: PRESENT: normal external ear exam Mouth exam: PRESENT: moist, tongue midline Neck exam: ABSENT: carotid bruit, JVD, lymphadenopathy, thyromegaly Respiratory exam: PRESENT: clear to auscultation kee. ABSENT: rales, rhonchi, wheezes Cardiovascular exam: PRESENT: RRR. ABSENT: diastolic murmur, rubs, systolic murmur Pulses: PRESENT: normal dorsalis pedis pul Vascular exam: PRESENT: normal capillary refill GI/Abdominal exam: PRESENT: normal bowel sounds, soft. ABSENT: distended, guarding, mass, organolmegaly, rebound, tenderness Rectal exam: PRESENT: deferred Extremities exam: PRESENT: full ROM. ABSENT: calf tenderness, clubbing, pedal edema Musculoskeletal exam: PRESENT: full ROM Neurological exam: PRESENT: alert, awake, oriented to person, oriented to place , oriented to time, oriented to situation, CN II-XII grossly intact. ABSENT: motor sensory deficit Psychiatric exam: PRESENT: appropriate affect, normal mood. ABSENT: homicidal ideation, suicidal ideation Skin exam: PRESENT: dry, intact, warm. ABSENT: cyanosis, rash Results Laboratory Results: 10/07/17 05:19 10/07/17 05:19 10/06/17 10/07/17 10/07/17 17:43 05:19 05:19 WBC 3.4 L RBC 3.47 L Hgb 11.0 L Hct 34.4 L MCV 99 H MCH 31.8 MCHC 32.0 RDW 20.1 H Plt Count 117 L Seg Neutrophils % Not Reportable Lymphocytes % Not Reportable Monocytes % Not Reportable Eosinophils % Not Reportable Basophils % Not Reportable Absolute Neutrophils Not Reportable Absolute Lymphocytes Not Reportable Absolute Monocytes Not Reportable Absolute Eosinophils Not Reportable Absolute Basophils Not Reportable Sodium 138.6 Potassium 4.9 Chloride 101 Carbon Dioxide 22 Anion Gap 16 BUN 59 H Creatinine 7.51 H Est GFR ( Amer) 6 L Est GFR (Non-Af Amer) 5 L Glucose 101 Lactic Acid 1.0 Calcium 9.2 Magnesium 2.0 Total Bilirubin 1.0 AST 20 ALT 23 Alkaline Phosphatase 96 Total Protein 7.5 Albumin 4.0 TSH Free T4 10/07/17 05:19 WBC RBC Hgb Hct MCV MCH MCHC RDW Plt Count Seg Neutrophils % Lymphocytes % Monocytes % Eosinophils % Basophils % Absolute Neutrophils Absolute Lymphocytes Absolute Monocytes Absolute Eosinophils Absolute Basophils Sodium Potassium Chloride Carbon Dioxide Anion Gap BUN Creatinine Est GFR ( Amer) Est GFR (Non-Af Amer) Glucose Lactic Acid Calcium Magnesium Total Bilirubin AST ALT Alkaline Phosphatase Total Protein Albumin TSH 3.10 Free T4 1.48 10/06/17 10/06/17 10/07/17 17:43 23:22 05:19 Troponin I 0.054 0.047 0.048 Impressions: Chest X-Ray 10/06/17 14:47 IMPRESSION: Cardiomegaly with mild pulmonary edema. Cannot exclude a right lower lobe or middle lobe pneumonia. Assessment & Plan - Diagnosis (1) Atrial fibrillation with rapid ventricular response Is this a current diagnosis for this admission?: Yes Plan: Will continue amiodarone. 2D echo pending. Patient with history of known A. fib. Patient's INR is pending (2) Pleural effusion Is this a current diagnosis for this admission?: Yes Plan: Small right pleural effusion secondary to A. fib with RVR: Once heart rate has improved and blood pressure has improved will resolve with dialysis (3) Dyspnea Qualifiers: Dyspnea type: unspecified Qualified Code(s): R06.00 - Dyspnea, unspecified Is this a current diagnosis for this admission?: Yes Plan: Secondary to A. fib with RVR and pulmonary vascular congestion: Secondary to A. fib with RVR and pulmonary congestion. Renal has been consulted for dialysis feel that patient's respiratory will improve once patient has been dialyzed. (4) Pneumonia Qualifiers: Pneumonia type: due to unspecified organism Laterality: right Lung location: lower lobe of lung Qualified Code(s): J18.1 - Lobar pneumonia, unspecified organism Plan: Ruled out most likely consistent with pulmonary venous congestion: Patient's heart rate is better controlled. Once patient has had dialysis recommend that patient have x-ray of chest for further evaluation (5) Hypotension Qualifiers: Hypotension type: other hypotension type Qualified Code(s): I95.89 - Other hypotension Is this a current diagnosis for this admission?: Yes Plan: Secondary to A. fib with RVR: Presentation currently not consistent with sepsis. Continue to monitor. (6) Pulmonary vascular congestion Is this a current diagnosis for this admission?: Yes Plan: A. fib with RVR: Continue patient on amiodarone drip cardiology has been consulted. Once patient has had dialysis would recommend repeating x-ray. (7) ESRD (end stage renal disease) on dialysis Is this a current diagnosis for this admission?: Yes Plan: Per nursing staff Dr. Nelson has been consulted and aware the patient is in the hospital. (8) Pulmonary hypertension, moderate to severe Is this a current diagnosis for this admission?: Yes Plan: Supportive of care for now. (9) H/O prosthetic aortic valve replacement Is this a current diagnosis for this admission?: Yes Plan: Aortic and mitral valve replacement: Coumadin - Time Time Spent with patient: 15-24 minutes
[2017-10-07 11:41] LABS: INTERNATIONAL RATION (INR) 3.48; PROTHROMBIN TIME 36.6 SEC (11.4-15.4)
[2017-10-07] MEDS ORDERED: METOPROLOL SUCCINATE 25 MG TAB.SR.24H PO ONE (12:15)
--- NOTE | 2017-10-07 12:43 | EKG REPORT ---
SEVERITY:- ABNORMAL ECG - ATRIAL FLUTTER, A-RATE 283 RIGHT BUNDLE BRANCH BLOCK LVH WITH SECONDARY REPOLARIZATION ABNORMALITY OLD INFERIOR MT. : Confirmed by: Michael Foster MD 07-Oct-2017 12:42:34
[2017-10-07] MEDS ORDERED: FUROSEMIDE INJ/PF 100 MG/10 ML SDV IV ONE (13:00)
--- NOTE | 2017-10-07 15:42 | PDOC CONSULTATION ---
Consultation Consult Date: 10/07/17 Consult reason:: ESRD History of Present Illness Admission Date/PCP: 10/06/17 16:25 LUIZ BENEDICT MD History of Present Illness: TAMMY BUCKLEY is a 77 year old female with history of A-fib, valvular heart disease, COPD and ESRD on dialysis 3x a week. She presented to the hospital with complaint of diarrhea and cough for the last 2 days. Patient also complained of weakness. Patient is a poor historian therefore history is limited and there was no family present. Per documentation from the ER patient complained of watery diarrhea and cough. Patient has been consistent with going to dialysis treatments. In the ER they reported that they thought patient had pneumonia was given Rocephin and linezolid. ER contacted Dr. Martines and patient was given dig and then given additional dose of dig. Patient had multiple previous admission with atrial fibrillation with rapid ventricular response. At the time of examination she was not complaining of any shortness of breath or chest pain. She was on oxygen at 4L via [place] saturating at 96%. She denies having fevers or chills. When asked about the diarrhea that she was complaining about prior she was confused. She does have a cough with sputum production but is not sure the exact color. Past Medical History Cardiac Medical History: Reports: Atrial Fibrillation, Heart Murmur - Aortic and mitral valve replacement., Hyperlipidemia, Hypertension-primary, Myocardial Infarction Denies: Coronary Artery Disease Pulmonary Medical History: Reports: Chronic Obstructive Pulmonary Disease (COPD) , Pneumonia Denies: Asthma, Bronchitis Neurological Medical History: Denies: Seizures Endocrine Medical History: Reports: Diabetes Mellitus Type 2 Renal/ Medical History: Reports: End Stage Renal Disease Musculoskeltal Medical History: Reports: Arthritis, Gout Psychiatric Medical History: Denies: Depression Past Surgical History Past Surgical History: Reports: Hysterectomy, Orthopedic Surgery - Back surgery 2, Valve Replacement - Mitral and aortic valve replacement, Other - EGD, colonoscopy, right IJV PermCath Social History Lives with: Spouse/Significant other Smoking Status: Unknown if Ever Smoked Frequency of Alcohol Use: None Hx Recreational Drug Use: No Drugs: None Hx Prescription Drug Abuse: No - Advance Directive Resuscitation Status: Full Code Family History Parental Family History Reviewed: No Children Family History Reviewed: NA Sibling(s) Family History Reviewed.: NA Medication/Allergy Home Medications: Atorvastatin Calcium [Lipitor 20 mg Tablet] 20 mg PO QHS 10/06/17 Ferrous Sulfate [Iron] 325 mg PO BID 10/06/17 Metolazone [Zaroxolyn 5 mg Tablet] 5 mg PO BID 10/06/17 Metoprolol Tartrate [Lopressor 25 mg Tablet] 12.5 mg PO Q12 10/06/17 Midodrine HCl 10 mg PO BID 10/06/17 Pantoprazole Sodium [Protonix] 40 mg PO BID 10/06/17 Warfarin Sodium [Coumadin 4 mg Tablet] 8 mg PO [id number]@199910/06/17 Warfarin Sodium [Coumadin 7.5 mg Tablet] 7.5 mg PO [id number]@199910/06/17 Allergies/Adverse Reactions: Penicillins Allergy (Severe, Verified 01/16/17 10:56) Swelling of hands and/or feet vancomycin [Vancomycin] Adverse Reaction (Intermediate, Verified 01/16/17 10:56) Swelling of hands and/or feet hydrochlorothiazide [From Dyazide] Adverse Reaction (Verified 01/16/17 10:56) Swelling of hands and/or feet triamterene [From Dyazide] Adverse Reaction (Verified 01/16/17 10:56) Swelling of hands and/or feet Review of Systems Constitutional: PRESENT: weakness. ABSENT: chills, fatigue, fever(s), headache( s) Eyes: ABSENT: visual disturbances Cardiovascular: PRESENT: dyspnea on exertion, palpitations. ABSENT: chest pain , edema, orthropnea Respiratory: PRESENT: cough, sputum Gastrointestinal: ABSENT: abdominal pain, constipation, diarrhea, nausea, vomiting Genitourinary: ABSENT: dysuria Neurological: PRESENT: weakness. ABSENT: confusion, dizziness Physical Exam Vital Signs: Temp Pulse Resp BP Pulse Ox 97.6 F 99 16 121/84 96 10/07/17 03:17 10/07/17 13:48 10/07/17 03:17 10/07/17 11:01 10/07/17 11:01 Intake & Output 10/06/17 10/07/17 10/08/17 06:59 06:59 06:59 Intake Total 55 Output Total 0 Balance 55 Weight 64.2 kg General appearance: PRESENT: no acute distress, well-developed, well-nourished Mouth exam: PRESENT: moist, neck supple Neck exam: PRESENT: full ROM. ABSENT: JVD Respiratory exam: PRESENT: accessory muscle use - -baseline, crackles, rhonchi. ABSENT: clear to auscultation kee, wheezes Cardiovascular exam: PRESENT: irregular rhythm, +S1, +S2, tachycardia GI/Abdominal exam: PRESENT: soft. ABSENT: ascites, distended, rigid, tenderness Extremities exam: PRESENT: pedal edema - -trace+. ABSENT: tenderness Musculoskeletal exam: PRESENT: normal inspection. ABSENT: tenderness Neurological exam: PRESENT: alert, awake, oriented to person, oriented to place , oriented to time, oriented to situation Skin exam: PRESENT: dry, intact, warm Results Laboratory Results: 10/07/17 05:19 10/07/17 05:19 10/06/17 10/07/17 10/07/17 17:43 05:19 05:19 WBC 3.4 L RBC 3.47 L Hgb 11.0 L Hct 34.4 L MCV 99 H MCH 31.8 MCHC 32.0 RDW 20.1 H Plt Count 117 L Seg Neutrophils % Not Reportable Lymphocytes % Not Reportable Monocytes % Not Reportable Eosinophils % Not Reportable Basophils % Not Reportable Absolute Neutrophils Not Reportable Absolute Lymphocytes Not Reportable Absolute Monocytes Not Reportable Absolute Eosinophils Not Reportable Absolute Basophils Not Reportable Sodium 138.6 Potassium 4.9 Chloride 101 Carbon Dioxide 22 Anion Gap 16 BUN 59 H Creatinine 7.51 H Est GFR ( Amer) 6 L Est GFR (Non-Af Amer) 5 L Glucose 101 Lactic Acid 1.0 Calcium 9.2 Magnesium 2.0 Total Bilirubin 1.0 AST 20 ALT 23 Alkaline Phosphatase 96 Total Protein 7.5 Albumin 4.0 TSH Free T4 10/07/17 05:19 WBC RBC Hgb Hct MCV MCH MCHC RDW Plt Count Seg Neutrophils % Lymphocytes % Monocytes % Eosinophils % Basophils % Absolute Neutrophils Absolute Lymphocytes Absolute Monocytes Absolute Eosinophils Absolute Basophils Sodium Potassium Chloride Carbon Dioxide Anion Gap BUN Creatinine Est GFR ( Amer) Est GFR (Non-Af Amer) Glucose Lactic Acid Calcium Magnesium Total Bilirubin AST ALT Alkaline Phosphatase Total Protein Albumin TSH 3.10 Free T4 1.48 10/06/17 10/06/17 10/07/17 17:43 23:22 05:19 Troponin I 0.054 0.047 0.048 Impressions: Chest X-Ray 10/06/17 14:47 IMPRESSION: Cardiomegaly with mild pulmonary edema. Cannot exclude a right lower lobe or middle lobe pneumonia. Assessment & Plan - Diagnosis (1) Dyspnea Qualifiers: Dyspnea type: unspecified Qualified Code(s): R06.00 - Dyspnea, unspecified Is this a current diagnosis for this admission?: Yes Plan: looks most likely to be due to previously uncontrolled A-Fib and COPD. With possible fluid/pneumonia adding to it. Since a-fib is better controlled patient denies being SOB. Will look to do dialysis tomorrow and re-evaluate chest x-ray post dialysis. (2) ESRD (end stage renal disease) on dialysis Is this a current diagnosis for this admission?: Yes Plan: Currently no urgent need to do dialysis today. Potassium is stable and patient was not SOB at the time of examination. She looked to be at her normal baseline that she is when at dialysis. Will look to set her up for dialysis tomorrow. (3) Pleural effusion Is this a current diagnosis for this admission?: Yes Plan: looks to have possible effusion on the right lower lobe. Will look to remove some fluid tomorrow (4) Pneumonia Qualifiers: Pneumonia type: due to unspecified organism Laterality: right Lung location: lower lobe of lung Plan: will receive antibiotics post dialysis tomorrow and looking to do a chest x-ray tomorrow after dialysis. (5) Pulmonary hypertension, moderate to severe Is this a current diagnosis for this admission?: Yes (6) Atrial fibrillation with rapid ventricular response Is this a current diagnosis for this admission?: Yes Plan: currently better controlled, being handled by cardiology (7) COPD (chronic obstructive pulmonary disease) Plan: has history COPD, plus she continues to smoke. Most likely contributing to her SOB. (8) Hypotension Qualifiers: Hypotension type: other hypotension type Qualified Code(s): I95.89 - Other hypotension Is this a current diagnosis for this admission?: Yes Plan: on midodrine 10mg BID and 1 before dialysis as outpatient. Patient frequently forgets to take her medications.
--- NOTE | 2017-10-07 18:49 | PDOC PROGRESS REPORT ---
Subjective Progress Note for:: 10/07/17 Subjective:: Patient is noted to be significantly improved and is more alert. She seems actually quite oriented. Patient is continuing on amiodarone drip. After which will recommend placing patient on p.o. amiodarone. Reason For Visit: A FIB WITH RVR Physical Exam Vital Signs: Temp Pulse Resp BP Pulse Ox 97.6 F 97 16 121/84 96 10/07/17 03:17 10/07/17 07:00 10/07/17 03:17 10/07/17 11:01 10/07/17 11:01 Intake & Output 10/06/17 10/07/17 10/08/17 06:59 06:59 06:59 Intake Total 55 Output Total 0 Balance 55 Weight 64.2 kg Exam: GENERAL: well-nourished and in no acute distress. Alert and oriented x3 HEAD: Atraumatic, normocephalic. EYES: Pupils equal round and reactive to light, extraocular movements intact, sclera anicteric, conjunctiva are normal. ENT: TMs normal, nares patent, oropharynx clear without exudates. Moist mucous membranes. No oral ulcerations or bleeding gums noted NECK: supple without lymphadenopathy. Trachea is central. No cervical or axillary lymphadenopathy noted. Carotids are 2+, JVD WNL LUNGS: Respiration seems nonlabored, no significant accessory muscle action noted. Breath sounds clear to auscultation bilaterally and equal noted. No wheezes rales or rhonchi noted. No significant dullness noted on percussion. CHEST: Palpation of the chest wall shows no significant chest wall tenderness. No other significant abnormalities noted. 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 Prosthetic valve sounds are noted to be crisp. ABDOMEN: Soft, no significant tenderness appreciated, normoactive bowel sounds. No guarding, no rebound. No rigidity noted . No masses appreciated. EXTREMITIES: Pedal pulses are 1-2+, no calf tenderness noted. No clubbing or cyanosis.trace pedal edema noted NEUROLOGICAL: Focused neurological exam showed no significant neurologic deficit. Normal speech, no focal weakness appreciated. PSYCH: Normal mood, normal affect. Judgment and insight within normal limits. SKIN: No significant ecchymosis, skin is noted to be warm. MUSCULOSKELETAL EXAM: No significant acute joint swelling noted. Results Laboratory Results: 10/07/17 05:19 10/07/17 05:19 10/06/17 10/07/17 10/07/17 17:43 05:19 05:19 WBC 3.4 L RBC 3.47 L Hgb 11.0 L Hct 34.4 L MCV 99 H MCH 31.8 MCHC 32.0 RDW 20.1 H Plt Count 117 L Seg Neutrophils % Not Reportable Lymphocytes % Not Reportable Monocytes % Not Reportable Eosinophils % Not Reportable Basophils % Not Reportable Absolute Neutrophils Not Reportable Absolute Lymphocytes Not Reportable Absolute Monocytes Not Reportable Absolute Eosinophils Not Reportable Absolute Basophils Not Reportable Sodium 138.6 Potassium 4.9 Chloride 101 Carbon Dioxide 22 Anion Gap 16 BUN 59 H Creatinine 7.51 H Est GFR ( Amer) 6 L Est GFR (Non-Af Amer) 5 L Glucose 101 Lactic Acid 1.0 Calcium 9.2 Magnesium 2.0 Total Bilirubin 1.0 AST 20 ALT 23 Alkaline Phosphatase 96 Total Protein 7.5 Albumin 4.0 TSH Free T4 10/07/17 05:19 WBC RBC Hgb Hct MCV MCH MCHC RDW Plt Count Seg Neutrophils % Lymphocytes % Monocytes % Eosinophils % Basophils % Absolute Neutrophils Absolute Lymphocytes Absolute Monocytes Absolute Eosinophils Absolute Basophils Sodium Potassium Chloride Carbon Dioxide Anion Gap BUN Creatinine Est GFR ( Amer) Est GFR (Non-Af Amer) Glucose Lactic Acid Calcium Magnesium Total Bilirubin AST ALT Alkaline Phosphatase Total Protein Albumin TSH 3.10 Free T4 1.48 10/06/17 10/06/17 10/07/17 17:43 23:22 05:19 Troponin I 0.054 0.047 0.048 EKG Comments: Telemetry shows atrial fibrillation with better controlled heart rate. Impressions: Chest X-Ray 10/06/17 14:47 IMPRESSION: Cardiomegaly with mild pulmonary edema. Cannot exclude a right lower lobe or middle lobe pneumonia. Assessment & Plan - Diagnosis (1) Atrial fibrillation with rapid ventricular response Is this a current diagnosis for this admission?: Yes (2) Dyspnea Qualifiers: Dyspnea type: unspecified Qualified Code(s): R06.00 - Dyspnea, unspecified Is this a current diagnosis for this admission?: Yes (3) H/O prosthetic mitral valve Is this a current diagnosis for this admission?: Yes (4) Hypotension (arterial) Qualifiers: Hypotension type: unspecified hypotension type Qualified Code(s): I95.9 - Hypotension, unspecified Is this a current diagnosis for this admission?: Yes (5) Congestive heart failure (CHF) Qualifiers: Heart failure type: diastolic Heart failure chronicity: acute on chronic Qualified Code(s): I50.33 - Acute on chronic diastolic (congestive) heart failure Is this a current diagnosis for this admission?: Yes - Notes Notes: Atrial fibrillation with rapid ventricular response: Heart rate under better control with amiodarone drip. Will start patient back on metoprolol succinate. Patient on chronic anticoagulation already for mechanical prosthetic valve. Dyspnea: Most likely was related to atrial fibrillation with rapid ventricular response. Currently improved. History of prosthetic mechanical mitral and aortic valve: Clinically seems to be functioning adequately. Maintain chronic Coumadin therapy with INR range between 2.5-3.5. Hypotension: Possibly related to atrial fibrillation with rapid ventricular response. This is now improved. If nephrology agrees, we can place patient on digoxin at 0.125 mg p.o. every other day. CHF: Seems improved. 2D echocardiogram still pending. Further evaluation of CHF and management plans after review of 2D echo. - Time Time with patient: Greater than 35 minutes - CODE STATUS was discussed, patient remains full code. Surrogate decision-maker unchanged. Multiple medical problems were addressed. More than 50% of the time spent coordinating care, discussing management plans with involved caregivers. Management plans discussed with involved personnels. Medical decision making was of moderate to high complexity, patient's has multiple comorbidities. Medications reviewed and adjusted accordingly: Yes
[2017-10-07] MEDS: AMIODARONE HCL 200 MG TABLET PO SCH (21:16)
[2017-10-07] MEDS: METOPROLOL SUCCINATE 25 MG TAB.SR.24H PO SCH (21:31)
[2017-10-07] MEDS: WARFARIN SODIUM 3 MG TABLET PO SCH (21:31)
[2017-10-08] MEDS ORDERED: EPOETIN ALFA INJ 20000 UNIT/1 ML VIAL (RENAL) IV PRN (05:00)
[2017-10-08 06:54] LABS: INTERNATIONAL RATION (INR) 4.35; PROTHROMBIN TIME 43.5 SEC (11.4-15.4)
[2017-10-08 06:56] LABS: HEMOGLOBIN 11.3 g/dL (12.0-15.5); MEAN CORPUSCULAR HEMOGLOBIN 32.4 pg (27.0-33.4); MEAN CORPUSCULAR HGB CONC 33.1 g/dL (32.0-36.0); MEAN CORPUSCULAR VOLUME 98 fl (80-97); PLATELET COUNT 114 10^3/uL (150-450); RED BLOOD COUNT 3.47 10^6/uL (3.72-5.28); RED CELL DISTRIBUTION WIDTH 20.1 % (11.5-14.0)
[2017-10-08 07:26] LABS: ABSOLUTE LYMPHOCYTES# (MANUAL) 0.5 10^3/uL (0.5-4.7); ABSOLUTE MONOCYTES # (MANUAL) 0.5 10^3/uL (0.1-1.4); BASOPHILS % (MANUAL) 0 % (0-2); EOSINOPHILS % (MANUAL) 1 % (0-6); LYMPHOCYTES % (MANUAL) 15 % (13-45); MONOCYTES % (MANUAL) 16 % (3-13); SEGMENTED NEUTROPHILS % (MAN) 68 % (42-78); TOTAL CELLS COUNTED 100
[2017-10-08 07:29] LABS: ANISOCYTOSIS 2+; PLATELET COMMENT DECREASED
[2017-10-08 07:30] LABS: POIKILOCYTOSIS 1+; SCHISTOCYTES SLIGHT
[2017-10-08 07:31] LABS: OVALOCYTES SLIGHT
[2017-10-08] MEDS ORDERED: MIDODRINE HCL 5 MG TABLET PO SCH ×2 (08:00→18:21)
[2017-10-08 08:01] LABS: ALANINE AMINOTRANSFERASE 16 U/L (9-52); ALKALINE PHOSPHATASE 102 U/L (38-126); ANION GAP 17 (5-19); ASPARTATE AMINO TRANSFERASE 24 U/L (14-36); BILIRUBIN,DIRECT 0.8 mg/dL (0.0-0.4); BILIRUBIN,TOTAL 0.8 mg/dL (0.2-1.3); BLOOD UREA NITROGEN 63 mg/dL (7-20); CALCIUM 8.9 mg/dL (8.4-10.2); CARBON DIOXIDE 24 mmol/L (22-30); CHLORIDE 95 mmol/L (98-107); GLUCOSE 74 mg/dL (75-110); POTASSIUM 4.8 mmol/L (3.6-5.0); SODIUM 135.5 mmol/L (137-145); TOTAL PROTEIN 7.5 g/dL (6.3-8.2)
[2017-10-08] MEDS ORDERED: EPOETIN ALFA 2,000 UNIT in SYRINGE, DISPOSABLE, 1 EACH IV PRN (11:25)
[2017-10-08] MEDS ORDERED: HEPARIN SOD (PORCINE) 1,000 UNIT/ML 10 ML VIAL IV PRN (12:09)
--- NOTE | 2017-10-08 12:32 | PDOC PROGRESS REPORT ---
Subjective Progress Note for:: 10/08/17 Subjective:: Patient seen on morning rounds and seems to be doing better. She is denying any chest pain. But does have some baseline dyspnea. 2D echocardiogram pending. Patient however seems to be back at baseline. Reason For Visit: A FIB WITH RVR Physical Exam Vital Signs: Temp Pulse Resp BP Pulse Ox 97.3 F 59 L 16 99/58 L 100 10/08/17 07:38 10/08/17 07:38 10/08/17 07:38 10/08/17 07:38 10/08/17 07:38 Intake & Output 10/07/17 10/08/17 10/09/17 06:59 06:59 06:59 Intake Total 55 600 Output Total 0 0 Balance 55 600 Weight 64.2 kg 85.6 kg Exam: GENERAL: well-nourished and in no acute distress. Alert and oriented x3 HEAD: Atraumatic, normocephalic. EYES: Pupils equal round and reactive to light, extraocular movements intact, sclera anicteric, conjunctiva are normal. ENT: TMs normal, nares patent, oropharynx clear without exudates. Moist mucous membranes. No oral ulcerations or bleeding gums noted NECK: supple without lymphadenopathy. Trachea is central. No cervical or axillary lymphadenopathy noted. Carotids are 2+, JVD WNL LUNGS: Respiration seems nonlabored, no significant accessory muscle action noted. Few bibasilar crackles noted. No wheezes rales or rhonchi noted. No significant dullness noted on percussion. CHEST: Palpation of the chest wall shows no significant chest wall tenderness. No other significant abnormalities noted. 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 Prosthetic valve sounds are noted to be crisp. ABDOMEN: Soft, no significant tenderness appreciated, normoactive bowel sounds. No guarding, no rebound. No rigidity noted . No masses appreciated. EXTREMITIES: Pedal pulses are 1-2+, no calf tenderness noted. No clubbing or cyanosis. Negative pedal edema noted NEUROLOGICAL: Focused neurological exam showed no significant neurologic deficit. Normal speech, no focal weakness appreciated. PSYCH: Normal mood, normal affect. Judgment and insight within normal limits. SKIN: No significant ecchymosis, skin is noted to be warm. MUSCULOSKELETAL EXAM: No significant acute joint swelling noted. Results Laboratory Results: 10/08/17 05:23 10/08/17 05:23 10/08/17 10/08/17 05:23 05:23 WBC 3.0 L RBC 3.47 L Hgb 11.3 L Hct 34.0 L MCV 98 H MCH 32.4 MCHC 33.1 RDW 20.1 H Plt Count 114 L Seg Neutrophils % Not Reportable Lymphocytes % Not Reportable Monocytes % Not Reportable Eosinophils % Not Reportable Basophils % Not Reportable Absolute Neutrophils Not Reportable Absolute Lymphocytes Not Reportable Absolute Monocytes Not Reportable Absolute Eosinophils Not Reportable Absolute Basophils Not Reportable Sodium 135.5 L Potassium 4.8 Chloride 95 L Carbon Dioxide 24 Anion Gap 17 BUN 63 H Creatinine 8.24 H Est GFR ( Amer) 6 L Est GFR (Non-Af Amer) 5 L Glucose 74 L Calcium 8.9 Total Bilirubin 0.8 AST 24 ALT 16 Alkaline Phosphatase 102 Total Protein 7.5 Albumin 4.0 10/06/17 10/06/17 10/07/17 17:43 23:22 05:19 Troponin I 0.054 0.047 0.048 EKG Comments: Telemetry shows atrial fibrillation with controlled ventricular response. Impressions: Chest X-Ray 10/06/17 14:47 IMPRESSION: Cardiomegaly with mild pulmonary edema. Cannot exclude a right lower lobe or middle lobe pneumonia. Assessment & Plan - Diagnosis (1) Atrial fibrillation with rapid ventricular response Is this a current diagnosis for this admission?: Yes (2) Dyspnea Qualifiers: Dyspnea type: unspecified Qualified Code(s): R06.00 - Dyspnea, unspecified Is this a current diagnosis for this admission?: Yes (3) H/O prosthetic mitral valve Is this a current diagnosis for this admission?: Yes (4) Hypotension (arterial) Qualifiers: Hypotension type: unspecified hypotension type Qualified Code(s): I95.9 - Hypotension, unspecified Is this a current diagnosis for this admission?: Yes - Notes Notes: Atrial fibrillation with rapid ventricular response: Heart rate under better control. Agree with amiodarone 200 mg p.o twice daily. Patient placed on 12.5 mg twice daily of metoprolol succinate. May consider increasing it or adding digoxin. Patient does have problems with significant intermittent hypotension and is on Midodrin. Our choice of antiarrhythmics and other medication to control her heart rate response is limited. Continue patient on chronic anticoagulation already for mechanical prosthetic valve. Dyspnea: Most likely was related to atrial fibrillation with rapid ventricular response. Currently improved. History of prosthetic mechanical mitral and aortic valve: Clinically seems to be functioning adequately. Maintain chronic Coumadin therapy with INR range between 2.5-3.5. Hypotension: Possibly related to atrial fibrillation with rapid ventricular response. This is now improved. If nephrology agrees, we can place patient on digoxin at 0.125 mg p.o. every other day. Awaiting nephrology input. - Time Time with patient: 15-25 minutes - CODE STATUS was discussed, patient remains full code. Surrogate decision-maker unchanged. Multiple medical problems were addressed. More than 50% of the time spent coordinating care, discussing management plans with involved caregivers. Management plans discussed with involved personnels. Medical decision making was of moderate to high complexity , patient's has multiple comorbidities. Medications reviewed and adjusted accordingly: Yes
[2017-10-08] MEDS: AMIODARONE HCL 200 MG TABLET PO SCH (14:40)
[2017-10-08] MEDS: METOPROLOL SUCCINATE 25 MG TAB.SR.24H PO SCH ×2 (14:40→23:16)
[2017-10-08] MEDS ORDERED: METOPROLOL SUCCINATE 25 MG TAB.SR.24H PO ONE (15:30)
[2017-10-08] MEDS ORDERED: METOPROLOL TARTRATE PF/INJ 5 MG/5 ML SDV IV ONE (15:30)
[2017-10-08] MEDS ORDERED: CEFEPIME 2 GM/D5W RTU 2 GM/50 ML RTUPB IV SCH (18:00)
--- NOTE | 2017-10-08 18:23 | XCELERA REPORT ---
[address] [address] Transthoracic Echocardiogram Report Name: TAMMY BUCKLEY Age: 77 yrs Gender: Female : 1940 Patient Status: Inpatient Patient Location: [address] [place] [address] Study Date: 10/08/2017 12:18 PM Height: 68 in Weight: 173 lb BSA: 1.9 m2 Procedure: A complete two-dimensional transthoracic echocardiogram was performed (2D, M-mode, spectral and color flow Doppler). The study was technically difficult with many images being suboptimal in quality. Reason For Study: A.fib with RVR Ordering Physician: CORDELIA CLARK Performed By: Cierra Castelan Interpretation Summary The study was technically difficult with many images being suboptimal in quality. The left ventricular ejection fraction is normal. Doppler measurements suggest reversible restrictive left ventricular relaxation, which is associated with grade III/IV or moderate diastolic dysfunction Wall motion cannot be accurately commented on, but no definite regional wall motion abnormalities noted. There is moderate concentric left ventricular hypertrophy. The left ventricle is grossly normal size. The right ventricular systolic function is moderately reduced. The right ventricle is moderately dilated. The right ventricle appears to be hypertrophied The right atrium is mild to moderately dilated. The left atrium is dilated There is a bi-leaflet ([employer]) mechanical prosthesis. There is a bi-leaflet ([employer] [employer]) aortic mechanical prosthesis. There is a moderate amount of tricuspid regurgitation Right ventricular systolic pressure is estimated to be elevated at >60mmHg. Approx 70-100 mmHg. Pt in a fib The aortic root is not well visualized but is probably normal size. The inferior vena cava was not well visualized There is no pericardial effusion. Small right pleural effusion. MMode/2D Measurements & Calculations RVDd: 2.6 cm LVIDd: 5.0 cm FS: 32.9 % Ao root diam: 1.9 cm IVSd: 1.0 cm LVIDs: 3.4 cm EDV(Teich): 120.5 ml LVPWd: 0.98 cmESV(Teich): 46.8 ml Ao root area: 2.9 cm2 EF(Teich): 61.2 % LVOT diam: 2.0 cm LVOT area: 3.0 cm2 Doppler Measurements & Calculations MV E max yvon: MV V2 max: MV dec slope: Ao V2 max: 187.3 cm/sec 197.3 cm/sec 1821 cm/sec2 280.8 cm/sec MV max PG: MV dec time: Ao max P.6 mmHg 0.10 sec 31.5 mmHg MV V2 mean: Ao V2 mean: 110.8 cm/sec 198.5 cm/sec MV mean PG: Ao mean P.0 mmHg 17.4 mmHg MV V2 VTI: 45.9 cm Ao V2 VTI: 44.6 cm MVA(VTI): 0.90 cm2 SUNNY(I,D): 0.92 cm2 SUNNY(V,D): 0.85 cm2 LV V1 max PG: SV(LVOT): 41.1 ml PA V2 max: TR max yvon: 2.5 mmHg 101.6 cm/sec 425.2 cm/sec LV V1 mean PG: PA max P.1 mmHgTR max P.3 mmHg 76.0 mmHg LV V1 max: 78.9 cm/sec LV V1 mean: 54.0 cm/sec LV V1 VTI: 13.6 cm Left Ventricle The left ventricle is grossly normal size. There is moderate concentric left ventricular hypertrophy. The left ventricular ejection fraction is normal. Doppler measurements suggest reversible restrictive left ventricular relaxation, which is associated with grade III/IV or moderate diastolic dysfunction. Wall motion cannot be accurately commented on, but no definite regional wall motion abnormalities noted. Right Ventricle The right ventricle is moderately dilated. The right ventricle appears to be hypertrophied. The right ventricular systolic function is moderately reduced. Atria The right atrium is mild to moderately dilated. The left atrium is dilated. Interarterial septum not well visualized and not well dopplered. Cannot comment on ASD/PFO presence. Mitral Valve There is a bi-leaflet ([employer]) mechanical prosthesis. Aortic Valve There is a bi-leaflet ([employer]) aortic mechanical prosthesis. Tricuspid Valve Tricuspid leaflets are thickened. There is no tricuspid stenosis. There is a moderate amount of tricuspid regurgitation. Right ventricular systolic pressure is estimated to be elevated at >60mmHg. Pulmonic Valve The pulmonic valve is not well visualized. Great Vessels The aortic root is not well visualized but is probably normal size. The inferior vena cava was not well visualized. Effusions There is no pericardial effusion. Small right pleural effusion. : CORDELIA CLARK Shyamal
--- NOTE | 2017-10-08 18:28 | PDOC PROGRESS REPORT ---
Subjective Progress Note for:: 10/08/17 Subjective:: The patient is resting in her bed. Her blood pressure is a little low this afternoon and she is somewhat tachycardic. I spoke to cardiology and am going to increase her Midrin. I discussed disposition plans with her and her . Her is at the bedside. He ambulates with a walker and has had a stroke. Per the PT report she is able to get out of bed with some assistance but is requiring quite a bit of help. The patient's at the bedside states that he cannot care for her at home in her current condition would like for her to go to rehab. The patient adamantly does not want to do this. I called the discharge planners who hopefully can help sort this out. In any event the patient had dialysis today. She tolerated it well. No nausea vomiting or diarrhea. No chest pain or shortness of breath. Reason For Visit: A FIB WITH RVR Physical Exam Vital Signs: Temp Pulse Resp BP Pulse Ox 97.8 F 104 H 15 98/70 L 95 10/08/17 14:17 10/08/17 14:17 10/08/17 14:17 10/08/17 14:17 10/08/17 16:19 Intake & Output 10/07/17 10/08/17 10/09/17 06:59 06:59 06:59 Intake Total 55 600 115 Output Total 0 0 Balance 55 600 115 Weight 64.2 kg 85.6 kg General appearance: PRESENT: no acute distress, well-developed, well-nourished Head exam: PRESENT: atraumatic, normocephalic Mouth exam: PRESENT: moist, tongue midline Respiratory exam: PRESENT: clear to auscultation kee. ABSENT: rales, rhonchi, wheezes Cardiovascular exam: PRESENT: clicks - From her mechanical valve, irregular rhythm, tachycardia Pulses: PRESENT: normal dorsalis pedis pul GI/Abdominal exam: PRESENT: normal bowel sounds, soft. ABSENT: distended, guarding, mass, organolmegaly, rebound, tenderness Rectal exam: PRESENT: deferred Extremities exam: PRESENT: full ROM. ABSENT: calf tenderness, clubbing, pedal edema Neurological exam: PRESENT: alert, awake, oriented to person, oriented to place , oriented to time, oriented to situation, CN II-XII grossly intact. ABSENT: motor sensory deficit Psychiatric exam: PRESENT: appropriate affect, normal mood. ABSENT: homicidal ideation, suicidal ideation Skin exam: PRESENT: dry, intact, warm. ABSENT: cyanosis, rash Results Laboratory Results: 10/08/17 05:23 10/08/17 05:23 10/08/17 10/08/17 05:23 05:23 WBC 3.0 L RBC 3.47 L Hgb 11.3 L Hct 34.0 L MCV 98 H MCH 32.4 MCHC 33.1 RDW 20.1 H Plt Count 114 L Seg Neutrophils % Not Reportable Lymphocytes % Not Reportable Monocytes % Not Reportable Eosinophils % Not Reportable Basophils % Not Reportable Absolute Neutrophils Not Reportable Absolute Lymphocytes Not Reportable Absolute Monocytes Not Reportable Absolute Eosinophils Not Reportable Absolute Basophils Not Reportable Sodium 135.5 L Potassium 4.8 Chloride 95 L Carbon Dioxide 24 Anion Gap 17 BUN 63 H Creatinine 8.24 H Est GFR ( Amer) 6 L Est GFR (Non-Af Amer) 5 L Glucose 74 L Calcium 8.9 Total Bilirubin 0.8 AST 24 ALT 16 Alkaline Phosphatase 102 Total Protein 7.5 Albumin 4.0 10/06/17 10/06/17 10/07/17 17:43 23:22 05:19 Troponin I 0.054 0.047 0.048 Impressions: Chest X-Ray 10/06/17 14:47 IMPRESSION: Cardiomegaly with mild pulmonary edema. Cannot exclude a right lower lobe or middle lobe pneumonia. Assessment & Plan - Diagnosis (1) Atrial fibrillation with rapid ventricular response Is this a current diagnosis for this admission?: Yes Plan: Still with some rapid rates. Dr. Martines adjusted her medications today. Her amiodarone will be stopped. She will remain on a remote monitor. (2) Pleural effusion Is this a current diagnosis for this admission?: Yes Plan: I believe this is improving with dialysis. Her pleural effusions were due to decompensated heart failure (3) Acute on chronic combined systolic and diastolic CHF (congestive heart failure) Is this a current diagnosis for this admission?: Yes Plan: Her volume status is being managed by nephrology and is improved postdialysis. (4) Hypotension Is this a current diagnosis for this admission?: Yes Plan: Likely due to severe pulmonary hypertension (5) End stage renal disease Is this a current diagnosis for this admission?: Yes Plan: She tolerated her dialysis well today. Plan of care per nephrology (6) Pulmonary hypertension, moderate to severe Is this a current diagnosis for this admission?: Yes Plan: Dr. Martines is following. (7) Mechanical heart valve present Is this a current diagnosis for this admission?: Yes Plan: Continue anticoagulation with Coumadin. Her INR is a little on the high side but within range. Pharmacy is managing. (8) Anemia Is this a current diagnosis for this admission?: Yes Plan: Related to her underlying end-stage renal disease. Stable (9) Thrombocytopenia Is this a current diagnosis for this admission?: Yes Plan: Of undetermined significance at this point. She will have a CBC drawn in the morning. (10) Tobacco abuse Is this a current diagnosis for this admission?: Yes Plan: Certainly at this juncture in time it would be in her best interest to quit smoking. She has been counseled accordingly (11) Pneumonia Qualifiers: Pneumonia type: due to unspecified organism Laterality: right Lung location: lower lobe of lung Qualified Code(s): J18.1 - Lobar pneumonia, unspecified organism Is this a current diagnosis for this admission?: Yes Plan: Ruled out. She had pulmonary vascular congestion due to her decompensated heart failure. No further antibiotic therapy. (12) Full code status Is this a current diagnosis for this admission?: Yes - Time Time Spent with patient: 25-34 minutes - Inpatient Certification Medical Necessity: Other - Inpatient hospitalization remains necessary. The patient still is having rapid rates and her blood pressure is quite low. Dr. Martines still is adjusting her medication. Also the patient's does not believe he can manage her at home. I have gotten the discharge planners involved.
[2017-10-08] MEDS: WARFARIN SODIUM 3 MG TABLET PO SCH (23:17)
[2017-10-09 06:47] LABS: HEMATOCRIT 34.4 % (36.0-47.0); HEMOGLOBIN 11.1 g/dL (12.0-15.5); INTERNATIONAL RATION (INR) 3.17; MEAN CORPUSCULAR HEMOGLOBIN 31.6 pg (27.0-33.4); MEAN CORPUSCULAR HGB CONC 32.2 g/dL (32.0-36.0); MEAN CORPUSCULAR VOLUME 98 fl (80-97); PLATELET COUNT 110 10^3/uL (150-450); RED CELL DISTRIBUTION WIDTH 20.1 % (11.5-14.0); WHITE BLOOD COUNT 3.4 10^3/uL (4.0-10.5)
[2017-10-09 06:50] LABS: ANION GAP 13 (5-19); CALCIUM 8.5 mg/dL (8.4-10.2); CARBON DIOXIDE 28 mmol/L (22-30); CHLORIDE 96 mmol/L (98-107); GLUCOSE 78 mg/dL (75-110); PHOSPHORUS 4.3 mg/dL (2.5-4.5); SODIUM 136.9 mmol/L (137-145)
[2017-10-09 07:01] LABS: BLOOD UREA NITROGEN 40 mg/dL (7-20)
[2017-10-09 07:31] LABS: ABSOLUTE LYMPHOCYTES# (MANUAL) 0.5 10^3/uL (0.5-4.7); ABSOLUTE MONOCYTES # (MANUAL) 0.4 10^3/uL (0.1-1.4); ABSOLUTE NEUTROPHILS# (MANUAL) 2.5 10^3/uL (1.7-8.2); BASOPHILS % (MANUAL) 0 % (0-2); EOSINOPHILS % (MANUAL) 1 % (0-6); LYMPHOCYTES % (MANUAL) 14 % (13-45); MONOCYTES % (MANUAL) 11 % (3-13); SEGMENTED NEUTROPHILS % (MAN) 74 % (42-78); TOTAL CELLS COUNTED 100
[2017-10-09 07:33] LABS: ANISOCYTOSIS 2+; OVALOCYTES 1+; PLATELET COMMENT DECREASED; POIKILOCYTOSIS 1+; TARGET CELLS SLIGHT; TOXIC GRANULATION 1+
[2017-10-09] MEDS: METOPROLOL SUCCINATE 25 MG TAB.SR.24H PO SCH ×2 (09:47→21:55)
--- NOTE | 2017-10-09 10:23 | PDOC PROGRESS REPORT ---
Subjective Progress Note for:: 10/08/17 Reason For Visit: Seen on HD today. VS stable. Still not feeling too well.Still has dyspnea.but no fever or chills.Labs and meds were reviewed . Physical Exam Vital Signs: Temp Pulse Resp BP Pulse Ox 97.8 F 104 H 15 98/70 L 95 10/08/17 14:17 10/08/17 14:17 10/08/17 14:17 10/08/17 14:17 10/08/17 14:17 Intake & Output 10/07/17 10/08/17 10/09/17 06:59 06:59 06:59 Intake Total 55 600 115 Output Total 0 0 Balance 55 600 115 Weight 64.2 kg 85.6 kg General appearance: PRESENT: no acute distress Respiratory exam: PRESENT: clear to auscultation kee, crackles, decreased breath sounds Cardiovascular exam: PRESENT: irregular rhythm, +S1, +S2, tachycardia GI/Abdominal exam: PRESENT: soft. ABSENT: ascites, distended, rigid, tenderness Extremities exam: PRESENT: pedal edema Neurological exam: PRESENT: awake, oriented to person, oriented to place Psychiatric exam: PRESENT: anxious Results Laboratory Results: 10/08/17 05:23 10/08/17 05:23 10/08/17 10/08/17 05:23 05:23 WBC 3.0 L RBC 3.47 L Hgb 11.3 L Hct 34.0 L MCV 98 H MCH 32.4 MCHC 33.1 RDW 20.1 H Plt Count 114 L Seg Neutrophils % Not Reportable Lymphocytes % Not Reportable Monocytes % Not Reportable Eosinophils % Not Reportable Basophils % Not Reportable Absolute Neutrophils Not Reportable Absolute Lymphocytes Not Reportable Absolute Monocytes Not Reportable Absolute Eosinophils Not Reportable Absolute Basophils Not Reportable Sodium 135.5 L Potassium 4.8 Chloride 95 L Carbon Dioxide 24 Anion Gap 17 BUN 63 H Creatinine 8.24 H Est GFR ( Amer) 6 L Est GFR (Non-Af Amer) 5 L Glucose 74 L Calcium 8.9 Total Bilirubin 0.8 AST 24 ALT 16 Alkaline Phosphatase 102 Total Protein 7.5 Albumin 4.0 10/06/17 10/06/17 10/07/17 17:43 23:22 05:19 Troponin I 0.054 0.047 0.048 Impressions: Chest X-Ray 10/06/17 14:47 IMPRESSION: Cardiomegaly with mild pulmonary edema. Cannot exclude a right lower lobe or middle lobe pneumonia. Assessment & Plan - Diagnosis (1) Pneumonia Qualifiers: Pneumonia type: due to unspecified organism Laterality: right Lung location: lower lobe of lung Qualified Code(s): J18.1 - Lobar pneumonia, unspecified organism Plan: On IV antibiotics. Monitor closely. (2) Pulmonary hypertension, moderate to severe Is this a current diagnosis for this admission?: Yes Plan: With heart failure. She response to dialysis. (3) Atrial fibrillation with rapid ventricular response Is this a current diagnosis for this admission?: Yes Plan: As per cardiology. (4) Acute hypoxemic respiratory failure Plan: On oxygen. (5) ESRD (end stage renal disease) on dialysis Is this a current diagnosis for this admission?: Yes Plan: Patient seen on hemodialysis. Undergoing dialysis well. Is being supervised to ensure safe and smooth procedure. Vital signs are stable even though blood pressure seems to be fluctuating towards the lower side. She was getting midodrine at home. Plan to remove 2-3 L as tolerated. Orders were discussed with the treating nurse Anna dialysis.
--- NOTE | 2017-10-09 11:44 | PDOC PROGRESS REPORT ---
Subjective Subjective:: The patient is a 77-year-old -[place] female who initially presented to the emergency room with diarrhea and cough. Her past medical history is significant for atrial fibrillation, systolic and diastolic congestive heart failure, myocardial infarction and mechanical aortic and mitral valve replacement. She also has end-stage renal disease on hemodialysis. At the time of admission the patient was found to have atrial fibrillation with rapid ventricular response as well as pleural effusion due to her atrial fibrillation. Initially there were some concerns that she may have an underlying pneumonia but this is been ruled out. It was felt that the changes on her chest x-ray were due to vascular congestion from decompensated heart failure. The patient has been followed closely by Dr. Martines from the cardiology service. He is still adjusting her medications but overall she is greatly improved. The patient is significantly debilitated after this acute illness. Her has had a stroke and ambulates with a walker himself. He also has a knee brace in place. Yesterday he said that he could not take care of her at home this cured in her weakened state. He states that she had a few falls prior to coming to the hospital. Actually the patient is doing fairly well with physical therapy. Today when I saw her she had ambulated to the bathroom herself. I saw her when she came out and she did almost fall. She is a little unsteady and likely would benefit from rehab. I have discussed this with the patient and she adamantly does not want to go to rehab. The discharge planners are involved. Last night Dr. Martines adjusted her medications. She is still somewhat tachycardic and her blood pressure is still on the low side in spite of increasing her Midrin last night. She denies fever chills. She is not aware that she is having heart palpitations. No chest pain or cough. No nausea, vomiting or diarrhea. No dysuria, frequency or hematuria. She does admit that going to the bathroom and back has her quite winded and it was quite difficult. Reason For Visit: A FIB WITH RVR Physical Exam Vital Signs: Temp Pulse Resp BP Pulse Ox 98.0 F 62 16 110/94 H 88 L 10/09/17 07:32 10/09/17 07:32 10/09/17 08:28 10/09/17 07:32 10/09/17 07:32 Intake & Output 10/08/17 10/09/17 10/10/17 06:59 06:59 06:59 Intake Total 600 622 Output Total 0 2000 Balance 600 -1378 Weight 85.6 kg 83 kg Results Laboratory Results: 10/09/17 05:08 10/09/17 05:08 10/09/17 10/09/17 05:08 05:08 WBC 3.4 L RBC 3.50 L Hgb 11.1 L Hct 34.4 L MCV 98 H MCH 31.6 MCHC 32.2 RDW 20.1 H Plt Count 110 L Seg Neutrophils % Not Reportable Lymphocytes % Not Reportable Monocytes % Not Reportable Eosinophils % Not Reportable Basophils % Not Reportable Absolute Neutrophils Not Reportable Absolute Lymphocytes Not Reportable Absolute Monocytes Not Reportable Absolute Eosinophils Not Reportable Absolute Basophils Not Reportable Sodium 136.9 L Potassium 4.0 Chloride 96 L Carbon Dioxide 28 Anion Gap 13 BUN 40 H D Creatinine 6.00 H Est GFR ( Amer) 8 L Est GFR (Non-Af Amer) 7 L Glucose 78 Calcium 8.5 Phosphorus 4.3 Magnesium 2.0 10/06/17 10/06/17 10/07/17 17:43 23:22 05:19 Troponin I 0.054 0.047 0.048 Impressions: Chest X-Ray 10/06/17 14:47 IMPRESSION: Cardiomegaly with mild pulmonary edema. Cannot exclude a right lower lobe or middle lobe pneumonia. Assessment & Plan - Diagnosis (1) Atrial fibrillation with rapid ventricular response Is this a current diagnosis for this admission?: Yes Plan: Still with some rapid rates. Dr. Martines adjusted her medications today. Her amiodarone will be stopped. She will remain on a remote monitor. She is still having some episodes of tachycardia. We will await recommendations today. (2) Pleural effusion Is this a current diagnosis for this admission?: Yes Plan: I believe this is improving with dialysis. Her pleural effusions were due to decompensated heart failure (3) Acute on chronic combined systolic and diastolic CHF (congestive heart failure) Is this a current diagnosis for this admission?: Yes Plan: Her volume status is being managed by nephrology and is improved post dialysis. (4) Hypotension Is this a current diagnosis for this admission?: Yes Plan: Likely due to severe pulmonary hypertension (5) End stage renal disease Is this a current diagnosis for this admission?: Yes Plan: She tolerated her dialysis well yesterday. Plan of care per nephrology (6) Pulmonary hypertension, moderate to severe Is this a current diagnosis for this admission?: Yes Plan: Dr. Martines is following. (7) Mechanical heart valve present Is this a current diagnosis for this admission?: Yes Plan: Continue anticoagulation with Coumadin. Her INR is therapeutic today. Pharmacy is dosing her Coumadin. (8) Anemia Is this a current diagnosis for this admission?: Yes Plan: Related to her underlying end-stage renal disease. Stable. Nephrology is managing (9) Thrombocytopenia Is this a current diagnosis for this admission?: Yes Plan: Of undetermined significance at this point. She will have a CBC drawn in the morning. (10) Tobacco abuse Is this a current diagnosis for this admission?: Yes Plan: Certainly at this juncture in time it would be in her best interest to quit smoking. She has been counseled accordingly (11) Pneumonia Qualifiers: Pneumonia type: due to unspecified organism Laterality: right Lung location: lower lobe of lung Qualified Code(s): J18.1 - Lobar pneumonia, unspecified organism Is this a current diagnosis for this admission?: Yes Plan: Ruled out. She had pulmonary vascular congestion due to her decompensated heart failure. No further antibiotic therapy. (12) Full code status Is this a current diagnosis for this admission?: Yes - Time Time Spent with patient: 15-24 minutes - Inpatient Certification Medical Necessity: Other - Inpatient hospitalization remains necessary. Overall the patient is slowly improving although her medications still need to be adjusted by cardiology. Her states he cannot take care of her at home. If they have other family members that could help she may do just fine at home but she is at high risk of falling and I believe she would benefit from subacute rehabilitation. The discharge planners are working on this.
--- NOTE | 2017-10-09 12:03 | PDOC PROGRESS REPORT ---
Subjective Progress Note for:: 10/09/17 Subjective:: Patient seen on morning rounds and seems to be doing better. She is denying any chest pain. But does have some baseline dyspnea. 2D echocardiogram shows normal LVEF, mechanical prosthetic valve when not adequately evaluated but seems to be functioning normally. Patient however seems to be back at baseline. Telemetry patient is noted to have a short run of wide-complex tachycardia. Patient otherwise asymptomatic. Yesterday for low blood pressure , Midodrin dose was increased. Reason For Visit: A FIB WITH RVR Physical Exam Vital Signs: Temp Pulse Resp BP Pulse Ox 98.0 F 62 16 110/94 H 88 L 10/09/17 07:32 10/09/17 07:32 10/09/17 08:28 10/09/17 07:32 10/09/17 07:32 Intake & Output 10/08/17 10/09/17 10/10/17 06:59 06:59 06:59 Intake Total 600 622 Output Total 0 2000 Balance 600 -1378 Weight 85.6 kg 83 kg Exam: GENERAL: well-nourished and in no acute distress. Alert and oriented x3 HEAD: Atraumatic, normocephalic. EYES: Pupils equal round and reactive to light, extraocular movements intact, sclera anicteric, conjunctiva are normal. ENT: TMs normal, nares patent, oropharynx clear without exudates. Moist mucous membranes. No oral ulcerations or bleeding gums noted NECK: supple without lymphadenopathy. Trachea is central. No cervical or axillary lymphadenopathy noted. Carotids are 2+, JVD WNL LUNGS: Respiration seems nonlabored, no significant accessory muscle action noted. Breath sounds clear to auscultation bilaterally and equal noted. No wheezes rales or rhonchi noted. No significant dullness noted on percussion. CHEST: Palpation of the chest wall shows no significant chest wall tenderness. No other significant abnormalities noted. 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 Prosthetic valve sounds are noted to be crisp. ABDOMEN: Soft, no significant tenderness appreciated, normoactive bowel sounds. No guarding, no rebound. No rigidity noted . No masses appreciated. EXTREMITIES: Pedal pulses are 1-2+, no calf tenderness noted. No clubbing or cyanosis.trace to 1+ pedal edema noted NEUROLOGICAL: Focused neurological exam showed no significant neurologic deficit. Normal speech, no focal weakness appreciated. PSYCH: Normal mood, normal affect. Judgment and insight within normal limits. SKIN: No significant ecchymosis, skin is noted to be warm. MUSCULOSKELETAL EXAM: No significant acute joint swelling noted. Results Laboratory Results: 10/09/17 05:08 10/09/17 05:08 10/09/17 10/09/17 05:08 05:08 WBC 3.4 L RBC 3.50 L Hgb 11.1 L Hct 34.4 L MCV 98 H MCH 31.6 MCHC 32.2 RDW 20.1 H Plt Count 110 L Seg Neutrophils % Not Reportable Lymphocytes % Not Reportable Monocytes % Not Reportable Eosinophils % Not Reportable Basophils % Not Reportable Absolute Neutrophils Not Reportable Absolute Lymphocytes Not Reportable Absolute Monocytes Not Reportable Absolute Eosinophils Not Reportable Absolute Basophils Not Reportable Sodium 136.9 L Potassium 4.0 Chloride 96 L Carbon Dioxide 28 Anion Gap 13 BUN 40 H D Creatinine 6.00 H Est GFR ( Amer) 8 L Est GFR (Non-Af Amer) 7 L Glucose 78 Calcium 8.5 Phosphorus 4.3 Magnesium 2.0 10/06/17 10/06/17 10/07/17 17:43 23:22 05:19 Troponin I 0.054 0.047 0.048 EKG Comments: Telemetry shows atrial fibrillation with somewhat of a rapid ventricular response and short run of nonsustained wide-complex tachycardia. Impressions: Chest X-Ray 10/06/17 14:47 IMPRESSION: Cardiomegaly with mild pulmonary edema. Cannot exclude a right lower lobe or middle lobe pneumonia. Assessment & Plan - Diagnosis (1) Atrial fibrillation with rapid ventricular response Is this a current diagnosis for this admission?: Yes (2) Dyspnea Qualifiers: Dyspnea type: unspecified Qualified Code(s): R06.00 - Dyspnea, unspecified Is this a current diagnosis for this admission?: Yes (3) H/O prosthetic mitral valve Is this a current diagnosis for this admission?: Yes (4) Hypotension (arterial) Qualifiers: Hypotension type: unspecified hypotension type Qualified Code(s): I95.9 - Hypotension, unspecified Is this a current diagnosis for this admission?: Yes (5) Wide-complex tachycardia Is this a current diagnosis for this admission?: Yes (6) Congestive heart failure (CHF) Qualifiers: Heart failure type: diastolic Heart failure chronicity: acute on chronic Qualified Code(s): I50.33 - Acute on chronic diastolic (congestive) heart failure Is this a current diagnosis for this admission?: Yes - Notes Notes: Atrial fibrillation with rapid ventricular response: Heart rate under better control. Amiodarone used for heart rate control in the emergency but now discontinued because 2D echo showed severe pulmonary hypertension. Increased dose of metoprolol tartrate to 25 mg p.o. every 12. May consider increasing it or adding digoxin. Patient does have problems with significant intermittent hypotension and is on Midodrin. Our choice of antiarrhythmics and other medication to control her heart rate response is limited. Continue patient on chronic anticoagulation already for mechanical prosthetic valve. Dyspnea: Most likely was related to atrial fibrillation with rapid ventricular response. Currently improved. History of prosthetic mechanical mitral and aortic valve: Clinically seems to be functioning adequately. Maintain chronic Coumadin therapy with INR range between 2.5-3.5. Hypotension: Possibly related to atrial fibrillation with rapid ventricular response. This is now improved. If nephrology agrees, we can place patient on digoxin at 0.125 mg p.o. every other day. Awaiting nephrology input. Congestive heart failure: Based on echocardiogram report felt to be mainly diastolic dysfunction with significant contribution from right heart failure. Wide-complex tachycardia: Continue with beta-val therapy. Patient to report any syncope or near syncope. - Time Time with patient: Greater than 35 minutes - CODE STATUS was discussed, patient remains full code. Surrogate decision-maker unchanged. Multiple medical problems were addressed. More than 50% of the time spent coordinating care, discussing management plans with involved caregivers. Management plans discussed with involved personnels. Medical decision making was of moderate to high complexity, patient's has multiple comorbidities. Medications reviewed and adjusted accordingly: Yes
--- NOTE | 2017-10-09 13:10 | PDOC PROGRESS REPORT ---
Subjective Progress Note for:: 10/09/17 Subjective:: Patient is currently doing, asking when she can leave the hospital. Currently no complaints of chest pain, SOB, N/V/D/C. Reason For Visit: A FIB WITH RVR Physical Exam Vital Signs: Temp Pulse Resp BP Pulse Ox 98.0 F 62 16 110/94 H 88 L 10/09/17 07:32 10/09/17 07:32 10/09/17 08:28 10/09/17 07:32 10/09/17 07:32 Intake & Output 10/08/17 10/09/17 10/10/17 06:59 06:59 06:59 Intake Total 600 622 Output Total 0 2000 Balance 600 -1378 Weight 85.6 kg 83 kg General appearance: PRESENT: no acute distress, well-developed, well-nourished Mouth exam: PRESENT: moist, neck supple Neck exam: PRESENT: full ROM. ABSENT: JVD Respiratory exam: PRESENT: clear to auscultation kee. ABSENT: accessory muscle use, crackles, rales, rhonchi, wheezes Cardiovascular exam: PRESENT: irregular rhythm, +S1, +S2, tachycardia GI/Abdominal exam: PRESENT: soft. ABSENT: ascites, distended, rigid, tenderness Extremities exam: PRESENT: tenderness. ABSENT: pedal edema Musculoskeletal exam: PRESENT: tenderness. ABSENT: normal inspection Neurological exam: PRESENT: alert, awake, oriented to person, oriented to place , oriented to situation. ABSENT: oriented to time Psychiatric exam: PRESENT: appropriate affect, normal mood Skin exam: PRESENT: dry, intact, warm Results Laboratory Results: 10/09/17 05:08 10/09/17 05:08 10/09/17 10/09/17 05:08 05:08 WBC 3.4 L RBC 3.50 L Hgb 11.1 L Hct 34.4 L MCV 98 H MCH 31.6 MCHC 32.2 RDW 20.1 H Plt Count 110 L Seg Neutrophils % Not Reportable Lymphocytes % Not Reportable Monocytes % Not Reportable Eosinophils % Not Reportable Basophils % Not Reportable Absolute Neutrophils Not Reportable Absolute Lymphocytes Not Reportable Absolute Monocytes Not Reportable Absolute Eosinophils Not Reportable Absolute Basophils Not Reportable Sodium 136.9 L Potassium 4.0 Chloride 96 L Carbon Dioxide 28 Anion Gap 13 BUN 40 H D Creatinine 6.00 H Est GFR ( Amer) 8 L Est GFR (Non-Af Amer) 7 L Glucose 78 Calcium 8.5 Phosphorus 4.3 Magnesium 2.0 10/06/17 10/06/17 10/07/17 17:43 23:22 05:19 Troponin I 0.054 0.047 0.048 Impressions: Chest X-Ray 10/06/17 14:47 IMPRESSION: Cardiomegaly with mild pulmonary edema. Cannot exclude a right lower lobe or middle lobe pneumonia. Assessment & Plan - Diagnosis (1) Atrial fibrillation with rapid ventricular response Is this a current diagnosis for this admission?: Yes Plan: Patient is okay for being started on digoxin. Recommended dose for ESRD is 0.0625 mg every 48 hours due to the medication not dialyzing out well. We will set up digoxin levels to be drawn every 2 weeks at dialysis. Due to patients poor memory, patient has a habit of not taking some medication and taking extras doses of others. (2) Dyspnea Qualifiers: Dyspnea type: unspecified Qualified Code(s): R06.00 - Dyspnea, unspecified Is this a current diagnosis for this admission?: Yes Plan: looks to have resolved, currently at baseline (3) ESRD (end stage renal disease) on dialysis Is this a current diagnosis for this admission?: Yes Plan: will look to continue dialysis tomorrow. (4) Pneumonia Qualifiers: Pneumonia type: due to unspecified organism Laterality: right Lung location: lower lobe of lung Qualified Code(s): J18.1 - Lobar pneumonia, unspecified organism Is this a current diagnosis for this admission?: Yes (5) Pulmonary hypertension, moderate to severe Is this a current diagnosis for this admission?: Yes (6) COPD (chronic obstructive pulmonary disease) Plan: looks to be at baseline (7) Hypotension Qualifiers: Hypotension type: other hypotension type Qualified Code(s): I95.89 - Other hypotension Is this a current diagnosis for this admission?: Yes Plan: will look to increase midodrine to daily. She normally received BID as outpatient - Notes Notes: patient's case and care plan was reviewed with Dr. Nelson.
[2017-10-09] MEDS: WARFARIN SODIUM 3 MG TABLET PO SCH (22:04)
[2017-10-10] MEDS ORDERED: EPOETIN ALFA INJ 20000 UNIT/1 ML VIAL (RENAL) IV PRN (05:00)
[2017-10-10] MEDS ORDERED: HEPARIN SOD (PORCINE) 1,000 UNIT/ML 10 ML VIAL IV PRN (05:00)
[2017-10-10 06:24] LABS: HEMATOCRIT 34.9 % (36.0-47.0); HEMOGLOBIN 11.6 g/dL (12.0-15.5); MEAN CORPUSCULAR HEMOGLOBIN 32.2 pg (27.0-33.4); MEAN CORPUSCULAR HGB CONC 33.1 g/dL (32.0-36.0); MEAN CORPUSCULAR VOLUME 97 fl (80-97); PLATELET COUNT 118 10^3/uL (150-450); RED BLOOD COUNT 3.59 10^6/uL (3.72-5.28); WHITE BLOOD COUNT 3.3 10^3/uL (4.0-10.5)
[2017-10-10 06:34] LABS: ANION GAP 14 (5-19); BLOOD UREA NITROGEN 46 mg/dL (7-20); CALCIUM 8.4 mg/dL (8.4-10.2); CARBON DIOXIDE 26 mmol/L (22-30); CHLORIDE 95 mmol/L (98-107); GLUCOSE 77 mg/dL (75-110); POTASSIUM 4.2 mmol/L (3.6-5.0)
[2017-10-10 06:40] LABS: INTERNATIONAL RATION (INR) 2.69; PROTHROMBIN TIME 29.9 SEC (11.4-15.4)
[2017-10-10 06:57] LABS: ABSOLUTE LYMPHOCYTES# (MANUAL) 0.5 10^3/uL (0.5-4.7); ABSOLUTE MONOCYTES # (MANUAL) 0.6 10^3/uL (0.1-1.4); ABSOLUTE NEUTROPHILS# (MANUAL) 2.1 10^3/uL (1.7-8.2); BASOPHILS % (MANUAL) 2 % (0-2); EOSINOPHILS % (MANUAL) 2 % (0-6); LYMPHOCYTES % (MANUAL) 14 % (13-45); MONOCYTES % (MANUAL) 19 % (3-13); NUCLEATED RED BLOOD CELLS 1 /100 WBC (0); SEGMENTED NEUTROPHILS % (MAN) 63 % (42-78); TOTAL CELLS COUNTED 100
[2017-10-10 07:01] LABS: BURR CELLS 1+; OVALOCYTES 1+; POIKILOCYTOSIS 2+; POLYCHROMASIA SLIGHT; SCHISTOCYTES SLIGHT; TARGET CELLS SLIGHT
[2017-10-10 07:02] LABS: ANISOCYTOSIS 2+; PLATELET COMMENT DECREASED; PLATELET LARGE PRESENT
[2017-10-10] MEDS ORDERED: MIDODRINE HCL 5 MG TABLET PO SCH (08:00)
--- NOTE | 2017-10-10 10:36 | PDOC PROGRESS REPORT ---
Subjective Progress Note for:: 10/10/17 Reason For Visit: Seen on HD today. Undergoing dialysis without any issues. Starting to feel better. Still has some dyspnea with exertion. No chest pains, fever or chills. Lab and meds were reviewed with her.Orders discussed with treating tourist agent. Physical Exam Vital Signs: Temp Pulse Resp BP Pulse Ox 97.5 F 51 L 16 87/43 L 100 10/10/17 07:38 10/10/17 07:38 10/10/17 07:38 10/10/17 07:38 10/10/17 07:38 Intake & Output 10/09/17 10/10/17 10/11/17 06:59 06:59 06:59 Intake Total 622 934 Output Total 1999 Balance -1378 934 Weight 83 kg 83.6 kg General appearance: PRESENT: no acute distress Respiratory exam: PRESENT: clear to auscultation kee, crackles - scattered. ABSENT: rhonchi Cardiovascular exam: PRESENT: irregular rhythm, +S1, +S2, tachycardia GI/Abdominal exam: PRESENT: soft. ABSENT: ascites, distended, rigid, tenderness Extremities exam: PRESENT: pedal edema Neurological exam: PRESENT: awake, oriented to person, oriented to place Results Laboratory Results: 10/10/17 05:33 10/10/17 05:33 10/10/17 10/10/17 05:33 05:33 WBC 3.3 L RBC 3.59 L Hgb 11.6 L Hct 34.9 L MCV 97 MCH 32.2 MCHC 33.1 RDW 20.0 H Plt Count 118 L Seg Neutrophils % Not Reportable Lymphocytes % Not Reportable Monocytes % Not Reportable Eosinophils % Not Reportable Basophils % Not Reportable Absolute Neutrophils Not Reportable Absolute Lymphocytes Not Reportable Absolute Monocytes Not Reportable Absolute Eosinophils Not Reportable Absolute Basophils Not Reportable Sodium 135.0 L Potassium 4.2 Chloride 95 L Carbon Dioxide 26 Anion Gap 14 BUN 46 H Creatinine 6.91 H Est GFR ( Amer) 7 L Est GFR (Non-Af Amer) 6 L Glucose 77 Calcium 8.4 Magnesium 2.1 10/06/17 10/06/17 10/07/17 17:43 23:22 05:19 Troponin I 0.054 0.047 0.048 Impressions: Chest X-Ray 10/06/17 14:47 IMPRESSION: Cardiomegaly with mild pulmonary edema. Cannot exclude a right lower lobe or middle lobe pneumonia. Assessment & Plan - Diagnosis (1) ESRD (end stage renal disease) on dialysis Is this a current diagnosis for this admission?: Yes Plan: Patient seen on hemodialysis. Undergoing dialysis well. Is being supervised to ensure safe and smooth procedure. Vital signs are stable even though blood pressure seems to be fluctuating towards the lower side. Will increase the midodrine to 10. Plan to remove 1-2 L as tolerated. Orders were discussed with the treating nurse Itzel on dialysis. (2) Pneumonia Qualifiers: Pneumonia type: due to unspecified organism Laterality: right Lung location: lower lobe of lung Qualified Code(s): J18.1 - Lobar pneumonia, unspecified organism Is this a current diagnosis for this admission?: Yes Plan: On IV antibiotics. Monitor closely. (3) Pulmonary hypertension, moderate to severe Is this a current diagnosis for this admission?: Yes Plan: With heart failure. She response to dialysis. (4) Atrial fibrillation with rapid ventricular response Is this a current diagnosis for this admission?: Yes Plan: As per cardiology. (5) Acute hypoxemic respiratory failure Plan: On oxygen. Improving. (6) Hypotension Is this a current diagnosis for this admission?: Yes Plan: Increase midodrine to 10 and monitor.
[2017-10-10] MEDS ORDERED: EPOETIN ALFA 2,000 UNIT in SYRINGE, DISPOSABLE, 1 EACH IV PRN (10:57)
[2017-10-10] MEDS: METOPROLOL SUCCINATE 25 MG TAB.SR.24H PO SCH ×2 (15:14→22:54)
--- NOTE | 2017-10-10 16:27 | PDOC PROGRESS REPORT ---
Subjective Progress Note for:: 10/10/17 Subjective:: he patient is a 77-year-old -[place] female who initially presented to the emergency room with diarrhea and cough. Her past medical history is significant for atrial fibrillation, systolic and diastolic congestive heart failure, myocardial infarction and mechanical aortic and mitral valve replacement. She also has end-stage renal disease on hemodialysis. At the time of admission the patient was found to have atrial fibrillation with rapid ventricular response as well as pleural effusion due to her atrial fibrillation. Initially there were some concerns that she may have an underlying pneumonia but this is been ruled out. It was felt that the changes on her chest x-ray were due to vascular congestion from decompensated heart failure. The patient has been followed closely by Dr. Martines from the cardiology service. He is still adjusting her medications but overall she is greatly improved. The patient is significantly debilitated after this acute illness. Her has had a stroke and ambulates with a walker himself. He also has a knee brace in place. Y Reason For Visit: A FIB WITH RVR Physical Exam Vital Signs: Temp Pulse Resp BP Pulse Ox 97.5 F 88 16 87/43 L 100 10/10/17 07:38 10/10/17 14:00 10/10/17 07:38 10/10/17 07:38 10/10/17 07:38 Intake & Output 10/09/17 10/10/17 10/11/17 06:59 06:59 06:59 Intake Total 622 934 275 Output Total 1999 Balance -1378 934 275 Weight 83 kg 83.6 kg General appearance: PRESENT: thin, other - Elderly and frail Eye exam: PRESENT: conjunctiva pink, EOMI, PERRLA. ABSENT: scleral icterus Respiratory exam: PRESENT: clear to auscultation kee. ABSENT: rales, rhonchi, wheezes Cardiovascular exam: PRESENT: irregular rhythm, +S1, +S2, systolic murmur. ABSENT: rubs Pulses: PRESENT: normal dorsalis pedis pul Extremities exam: PRESENT: full ROM. ABSENT: calf tenderness, clubbing, pedal edema Neurological exam: PRESENT: alert, awake, oriented to place, oriented to time Psychiatric exam: PRESENT: appropriate affect, normal mood. ABSENT: homicidal ideation, suicidal ideation Results Laboratory Results: 10/10/17 05:33 10/10/17 05:33 10/10/17 10/10/17 05:33 05:33 WBC 3.3 L RBC 3.59 L Hgb 11.6 L Hct 34.9 L MCV 97 MCH 32.2 MCHC 33.1 RDW 20.0 H Plt Count 118 L Seg Neutrophils % Not Reportable Lymphocytes % Not Reportable Monocytes % Not Reportable Eosinophils % Not Reportable Basophils % Not Reportable Absolute Neutrophils Not Reportable Absolute Lymphocytes Not Reportable Absolute Monocytes Not Reportable Absolute Eosinophils Not Reportable Absolute Basophils Not Reportable Sodium 135.0 L Potassium 4.2 Chloride 95 L Carbon Dioxide 26 Anion Gap 14 BUN 46 H Creatinine 6.91 H Est GFR ( Amer) 7 L Est GFR (Non-Af Amer) 6 L Glucose 77 Calcium 8.4 Magnesium 2.1 10/06/17 10/06/17 10/07/17 17:43 23:22 05:19 Troponin I 0.054 0.047 0.048 Impressions: Chest X-Ray 10/06/17 14:47 IMPRESSION: Cardiomegaly with mild pulmonary edema. Cannot exclude a right lower lobe or middle lobe pneumonia. Assessment & Plan - Time Time Spent with patient: 15-24 minutes Medications reviewed and adjusted accordingly: Yes Anticipated discharge: Home with Homehealth Within: within 48 hours - Plan Summary Plan Summary: Atrial fibrillation with a rapid ventricular response which appears to be better controlled today. 2. Pleural effusion improving with dialysis likely secondary to decompensated heart failure 3. 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 4. Hypotension we will continue cautious dialysis 5. End-stage renal disease continue dialysis as tolerated 6. Pulmonary hypertension chronic 7. History of mechanical heart valve replacement currently on Coumadin 8. Pneumonia has been ruled out #9 Full CODE STATUS #10 anemia and thrombocytopenia secondary to underlying chronic disease
--- NOTE | 2017-10-10 21:11 | PDOC PROGRESS REPORT ---
Subjective Progress Note for:: 10/10/17 Subjective:: Patient seen on morning rounds and seems to be doing better. Heart rate seems better controlled. She is denying any chest pain. But does have some baseline dyspnea. 2D echocardiogram shows normal LVEF, mechanical prosthetic valve when not adequately evaluated but seems to be functioning normally. Patient however seems to be back at baseline. Telemetry patient is noted to have a short run of wide-complex tachycardia. Patient otherwise asymptomatic. For low blood pressure, Midodrin dose was increased. Reason For Visit: A FIB WITH RVR Physical Exam Vital Signs: Temp Pulse Resp BP Pulse Ox 97.8 F 72 16 103/40 L 94 10/10/17 20:04 10/10/17 20:04 10/10/17 20:04 10/10/17 20:04 10/10/17 20:04 Intake & Output 10/09/17 10/10/17 10/11/17 06:59 06:59 06:59 Intake Total 622 934 585 Output Total 2000 2200 Balance -1378 934 -1615 Weight 83 kg 83.6 kg Exam: GENERAL: well-nourished and in no acute distress. Alert and oriented x3 HEAD: Atraumatic, normocephalic. EYES: Pupils equal round and reactive to light, extraocular movements intact, sclera anicteric, conjunctiva are normal. ENT: TMs normal, nares patent, oropharynx clear without exudates. Moist mucous membranes. No oral ulcerations or bleeding gums noted NECK: supple without lymphadenopathy. Trachea is central. No cervical or axillary lymphadenopathy noted. Carotids are 2+, JVD WNL LUNGS: Respiration seems nonlabored, no significant accessory muscle action noted. Breath sounds clear to auscultation bilaterally and equal noted. No wheezes rales or rhonchi noted. No significant dullness noted on percussion. CHEST: Palpation of the chest wall shows no significant chest wall tenderness. No other significant abnormalities noted. HEART: [place] [employer], No PSH, 1/6 MICHEAL aortic area, 1/6 camacho systolic murmur mitral area, no rubs, no gallops. Prosthetic valve sounds are noted to be crisp. ABDOMEN: Soft, no significant tenderness appreciated, normoactive bowel sounds. No guarding, no rebound. No rigidity noted . No masses appreciated. EXTREMITIES: Pedal pulses are 1-2+, no calf tenderness noted. No clubbing or cyanosis.trace pedal edema noted NEUROLOGICAL: Focused neurological exam showed no significant neurologic deficit. Normal speech, no focal weakness appreciated. PSYCH: Normal mood, normal affect. Judgment and insight within normal limits. SKIN: No significant ecchymosis, skin is noted to be warm. MUSCULOSKELETAL EXAM: No significant acute joint swelling noted. Results Laboratory Results: 10/10/17 05:33 10/10/17 05:33 10/10/17 10/10/17 05:33 05:33 WBC 3.3 L RBC 3.59 L Hgb 11.6 L Hct 34.9 L MCV 97 MCH 32.2 MCHC 33.1 RDW 20.0 H Plt Count 118 L Seg Neutrophils % Not Reportable Lymphocytes % Not Reportable Monocytes % Not Reportable Eosinophils % Not Reportable Basophils % Not Reportable Absolute Neutrophils Not Reportable Absolute Lymphocytes Not Reportable Absolute Monocytes Not Reportable Absolute Eosinophils Not Reportable Absolute Basophils Not Reportable Sodium 135.0 L Potassium 4.2 Chloride 95 L Carbon Dioxide 26 Anion Gap 14 BUN 46 H Creatinine 6.91 H Est GFR ( Amer) 7 L Est GFR (Non-Af Amer) 6 L Glucose 77 Calcium 8.4 Magnesium 2.1 10/06/17 10/06/17 10/07/17 17:43 23:22 05:19 Troponin I 0.054 0.047 0.048 EKG Comments: Telemetry strips shows atrial fibrillation with ventricular response which is normal more controlled. Impressions: Chest X-Ray 10/06/17 14:47 IMPRESSION: Cardiomegaly with mild pulmonary edema. Cannot exclude a right lower lobe or middle lobe pneumonia. Assessment & Plan - Diagnosis (1) Atrial fibrillation with rapid ventricular response Is this a current diagnosis for this admission?: Yes (2) Dyspnea Qualifiers: Dyspnea type: unspecified Qualified Code(s): R06.00 - Dyspnea, unspecified Is this a current diagnosis for this admission?: Yes (3) H/O prosthetic mitral valve Is this a current diagnosis for this admission?: Yes (4) Hypotension (arterial) Qualifiers: Hypotension type: unspecified hypotension type Qualified Code(s): I95.9 - Hypotension, unspecified Is this a current diagnosis for this admission?: Yes (5) Wide-complex tachycardia Is this a current diagnosis for this admission?: Yes (6) Congestive heart failure (CHF) Qualifiers: Heart failure type: diastolic Heart failure chronicity: acute on chronic Qualified Code(s): I50.33 - Acute on chronic diastolic (congestive) heart failure Is this a current diagnosis for this admission?: Yes - Notes Notes: Atrial fibrillation with rapid ventricular response: Heart rate under better control. Amiodarone used for heart rate control in the emergency but now discontinued because 2D echo showed severe pulmonary hypertension. Increased dose of metoprolol succinate to 25 mg p.o. every 12. May consider increasing it or adding digoxin. Patient does have problems with significant intermittent hypotension and is on Midodrin. Our choice of antiarrhythmics and other medication to control her heart rate response is limited. Continue patient on chronic anticoagulation already for mechanical prosthetic valve. Dyspnea: Most likely was related to atrial fibrillation with rapid ventricular response. Currently improved. History of prosthetic mechanical mitral and aortic valve: Clinically seems to be functioning adequately. Maintain chronic Coumadin therapy with INR range between 2.5-3.5. Hypotension: Possibly related to atrial fibrillation with rapid ventricular response. This is now improved. If nephrology agrees, we can place patient on digoxin at 0.125 mg p.o. every other day. Awaiting nephrology input. Congestive heart failure: Based on echocardiogram report felt to be mainly diastolic dysfunction with significant contribution from right heart failure. Wide-complex tachycardia: Continue with beta-val therapy. Patient to report any syncope or near syncope. Patient has been generally stable from cardiac standpoint but she has significant underlying multiple medical comorbidities. Treatment options are somewhat difficult and limited in this patient. I will be off over the weekend. Dr. Martínez will be covering over the weekend. - Time Time with patient: 15-25 minutes - CODE STATUS was discussed, patient remains full code. Surrogate decision-maker unchanged. Multiple medical problems were addressed. More than 50% of the time spent coordinating care, discussing management plans with involved caregivers. Management plans discussed with involved personnels. Medical decision making was of moderate to high complexity , patient's has multiple comorbidities. Medications reviewed and adjusted accordingly: Yes
[2017-10-10] MEDS: WARFARIN SODIUM 3 MG TABLET PO SCH (22:54)
[2017-10-11 08:35] LABS: INTERNATIONAL RATION (INR) 2.47
[2017-10-11] MEDS: METOPROLOL SUCCINATE 25 MG TAB.SR.24H PO SCH ×2 (09:12→22:55)
--- NOTE | 2017-10-11 16:12 | PDOC PROGRESS REPORT ---
Subjective Progress Note for:: 10/11/17 Subjective:: The patient is a 77-year-old -Citizen Of [place] female who initially presented to the emergency room with diarrhea and cough. Her past medical history is significant for atrial fibrillation, systolic and diastolic congestive heart failure, myocardial infarction and mechanical aortic and mitral valve replacement. She also has end-stage renal disease on hemodialysis. At the time of admission the patient was found to have atrial fibrillation with rapid ventricular response as well as pleural effusion due to her atrial fibrillation. Initially there were some concerns that she may have an underlying pneumonia but this is been ruled out. It was felt that the changes on her chest x-ray were due to vascular congestion from decompensated heart failure. The patient has been followed closely by Dr. Martines from the cardiology service. He is still adjusting her medications but overall she is greatly improved. The patient is significantly debilitated after this acute illness. Her has had a stroke and ambulates with a walker himself. He also has a knee brace in place. Y Reason For Visit: A FIB WITH RVR Physical Exam Vital Signs: Temp Pulse Resp BP Pulse Ox 97.6 F 83 16 118/51 L 100 10/11/17 11:51 10/11/17 14:00 10/11/17 11:51 10/11/17 11:51 10/11/17 11:51 Intake & Output 10/10/17 10/11/17 10/12/17 06:59 06:59 06:59 Intake Total 934 785 237 Output Total 2200 Balance 934 -1415 237 Weight 83.6 kg 83.4 kg General appearance: PRESENT: no acute distress, thin Head exam: PRESENT: atraumatic Eye exam: PRESENT: conjunctiva pink, EOMI, PERRLA. ABSENT: scleral icterus Neck exam: ABSENT: carotid bruit, JVD, lymphadenopathy, thyromegaly Pulses: PRESENT: normal dorsalis pedis pul GI/Abdominal exam: PRESENT: normal bowel sounds, soft. ABSENT: distended, guarding, mass, organolmegaly, rebound, tenderness Rectal exam: PRESENT: deferred Neurological exam: PRESENT: alert, awake, oriented to person, oriented to place , oriented to time Psychiatric exam: PRESENT: appropriate affect, normal mood. ABSENT: homicidal ideation, suicidal ideation Skin exam: PRESENT: dry, intact, warm. ABSENT: cyanosis, rash Results Laboratory Results: 10/10/17 05:33 10/10/17 05:33 10/06/17 10/06/17 10/07/17 17:43 23:22 05:19 Troponin I 0.054 0.047 0.048 Impressions: Chest X-Ray 10/06/17 14:47 IMPRESSION: Cardiomegaly with mild pulmonary edema. Cannot exclude a right lower lobe or middle lobe pneumonia. Assessment & Plan - Time Time Spent with patient: 15-24 minutes Medications reviewed and adjusted accordingly: Yes Anticipated discharge: Home with Homehealth Within: within 48 hours - Plan Summary Plan Summary: Atrial fibrillation with a rapid ventricular response controlled. 2. Pleural effusion improving with dialysis likely secondary to decompensated heart failure 3. 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 4. Hypotension continue cautious dialysis 5. End-stage renal disease continue dialysis as tolerated 6. Pulmonary hypertension chronic 7. History of mechanical heart valve replacement currently on Coumadin 8. Pneumonia has been ruled out #9 Full CODE STATUS #10 anemia and thrombocytopenia secondary to underlying chronic disease #11 plan for dc in 2 days
[2017-10-11] MEDS: WARFARIN SODIUM 3 MG TABLET PO SCH (22:55)
[2017-10-12 04:59] LABS: INTERNATIONAL RATION (INR) 2.56; PROTHROMBIN TIME 28.8 SEC (11.4-15.4)
[2017-10-12] MEDS ORDERED: WARFARIN SODIUM 3 MG TABLET PO SCH (11:38)
--- NOTE | 2017-10-12 11:40 | PDOC PROGRESS REPORT ---
Subjective Progress Note for:: 10/12/17 Subjective:: The patient is a 77-year-old -[place] female who initially presented to the emergency room with diarrhea and cough. Her past medical history is significant for atrial fibrillation, systolic and diastolic congestive heart failure, myocardial infarction and mechanical aortic and mitral valve replacement. She also has end-stage renal disease on hemodialysis. At the time of admission the patient was found to have atrial fibrillation with rapid ventricular response as well as pleural effusion due to her atrial fibrillation. Initially there were some concerns that she may have an underlying pneumonia but this is been ruled out. It was felt that the changes on her chest x-ray were due to vascular congestion from decompensated heart failure. The patient has been followed closely by Dr. Martines from the cardiology service. He is still adjusting her medications but overall she is greatly improved. The patient is significantly debilitated after this acute illness. Her has had a stroke and ambulates with a walker himself. He also has a knee brace in place. Plan is for dc home in am Reason For Visit: A FIB WITH RVR Physical Exam Vital Signs: Temp Pulse Resp BP Pulse Ox 98.4 F 72 20 90/42 L 89 L 10/12/17 07:30 10/12/17 07:30 10/12/17 07:30 10/12/17 07:30 10/12/17 07:30 Intake & Output 10/11/17 10/12/17 10/13/17 06:59 06:59 06:59 Intake Total 785 887 Output Total 2200 1 Balance -1415 886 Weight 83.4 kg 84.2 kg General appearance: PRESENT: no acute distress, thin Head exam: PRESENT: atraumatic Eye exam: PRESENT: conjunctiva pink, EOMI, PERRLA. ABSENT: scleral icterus Respiratory exam: PRESENT: accessory muscle use GI/Abdominal exam: PRESENT: normal bowel sounds, soft. ABSENT: distended, guarding, mass, organolmegaly, rebound, tenderness Rectal exam: PRESENT: deferred Musculoskeletal exam: PRESENT: ambulatory Neurological exam: PRESENT: alert Psychiatric exam: PRESENT: appropriate affect, normal mood. ABSENT: homicidal ideation, suicidal ideation Skin exam: PRESENT: dry, intact, warm. ABSENT: cyanosis, rash Results Laboratory Results: 10/10/17 05:33 10/10/17 05:33 10/06/17 10/06/17 10/07/17 17:43 23:22 05:19 Troponin I 0.054 0.047 0.048 Impressions: Chest X-Ray 10/06/17 14:47 IMPRESSION: Cardiomegaly with mild pulmonary edema. Cannot exclude a right lower lobe or middle lobe pneumonia. Assessment & Plan - Time Time Spent with patient: 15-24 minutes Medications reviewed and adjusted accordingly: Yes Anticipated discharge: Home Within: within 24 hours - Plan Summary Plan Summary: 1. Atrial fibrillation with a rapid ventricular response controlled. INR is trending down. Will increase Coumadin dose 2. Pleural effusion improving with dialysis likely secondary to decompensated heart failure 3. 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 4. Hypotension continue cautious dialysis as tolerated 5. End-stage renal disease on dialysis as tolerated 6. Pulmonary hypertension chronic 7. History of mechanical heart valve replacement currently on Coumadin 8. Pneumonia has been ruled out #9 Full CODE STATUS #10 anemia and thrombocytopenia secondary to underlying chronic disease #11 plan for dc in am
[2017-10-12] MEDS: METOPROLOL SUCCINATE 25 MG TAB.SR.24H PO SCH (14:07)
[2017-10-13] MEDS: METOPROLOL SUCCINATE 25 MG TAB.SR.24H PO SCH (05:30)
[2017-10-13 06:32] LABS: INTERNATIONAL RATION (INR) 2.65; PROTHROMBIN TIME 29.6 SEC (11.4-15.4)
[2017-10-13 07:19] LABS: HEMATOCRIT 31.9 % (36.0-47.0); HEMOGLOBIN 10.5 g/dL (12.0-15.5); MEAN CORPUSCULAR HEMOGLOBIN 32.2 pg (27.0-33.4); MEAN CORPUSCULAR HGB CONC 33.1 g/dL (32.0-36.0); MEAN CORPUSCULAR VOLUME 97 fl (80-97); PLATELET COUNT 114 10^3/uL (150-450); RED BLOOD COUNT 3.28 10^6/uL (3.72-5.28); RED CELL DISTRIBUTION WIDTH 20.2 % (11.5-14.0); WHITE BLOOD COUNT 3.2 10^3/uL (4.0-10.5)
[2017-10-13 07:25] LABS: ANION GAP 12 (5-19); BLOOD UREA NITROGEN 68 mg/dL (7-20); CARBON DIOXIDE 26 mmol/L (22-30); CHLORIDE 94 mmol/L (98-107); GLUCOSE 86 mg/dL (75-110); POTASSIUM 4.6 mmol/L (3.6-5.0)
[2017-10-13] MEDS ORDERED: MIDODRINE HCL 5 MG TABLET PO SCH (08:00)
[2017-10-13] MEDS ORDERED: HEPARIN SOD (PORCINE) 1,000 UNIT/ML 10 ML VIAL IV PRN (09:58)
--- NOTE | 2017-10-13 10:06 | EKG REPORT ---
SEVERITY:- ABNORMAL ECG - ATRIAL FIBRILLATION, V-RATE 68-105 PREMATURE COMPLEX, VENT RIGHT BUNDLE BRANCH BLOCK LVH WITH SECONDARY REPOLARIZATION ABNORMALITY : Confirmed by: Anusha Martines 13-Oct-2017 10:05:48
--- NOTE | 2017-10-13 10:34 | PDOC PROGRESS REPORT ---
Subjective Progress Note for:: 10/13/17 Subjective:: Patient seen on dialysis. Blood pressure has been more stable. Heart rate seems better controlled. She is denying any chest pain. But does have some baseline dyspnea. 2D echocardiogram shows normal LVEF, mechanical prosthetic valve when not adequately evaluated but seems to be functioning normally. Patient however seems to be back at baseline. Telemetry patient is noted to adequate control of heart rate. For low blood pressure, Midodrin dose was increased. Reason For Visit: A FIB WITH RVR Physical Exam Vital Signs: Temp Pulse Resp BP Pulse Ox 97.3 F 69 16 90/61 L 100 10/13/17 07:40 10/13/17 07:40 10/13/17 07:40 10/13/17 07:40 10/13/17 07:40 Intake & Output 10/12/17 10/13/17 10/14/17 06:59 06:59 06:59 Intake Total 887 1031 Output Total 1 Balance 886 1031 Weight 84.2 kg 85.2 kg Exam: GENERAL: well-nourished and in no acute distress. Alert and oriented x3 HEAD: Atraumatic, normocephalic. EYES: Pupils equal round and reactive to light, extraocular movements intact, sclera anicteric, conjunctiva are normal. ENT: TMs normal, nares patent, oropharynx clear without exudates. Moist mucous membranes. No oral ulcerations or bleeding gums noted NECK: supple without lymphadenopathy. Trachea is central. No cervical or axillary lymphadenopathy noted. Carotids are 2+, JVD WNL LUNGS: Respiration seems nonlabored, no significant accessory muscle action noted. Breath sounds clear to auscultation bilaterally and equal noted. No wheezes rales or rhonchi noted. No significant dullness noted on percussion. CHEST: Palpation of the chest wall shows no significant chest wall tenderness. No other significant abnormalities noted. HEART: [place] [employer], No PSH, 1/6 MICHEAL aortic area, 1/6 camacho systolic murmur mitral area, no rubs, no gallops. Prosthetic valve sounds are noted to be crisp ABDOMEN: Soft, no significant tenderness appreciated, normoactive bowel sounds. No guarding, no rebound. No rigidity noted . No masses appreciated. EXTREMITIES: Pedal pulses are 1-2+, no calf tenderness noted. No clubbing or cyanosis. Negative pedal edema noted NEUROLOGICAL: Focused neurological exam showed no significant neurologic deficit. Normal speech, no focal weakness appreciated. PSYCH: Normal mood, normal affect. Judgment and insight within normal limits. SKIN: No significant ecchymosis, skin is noted to be warm. MUSCULOSKELETAL EXAM: No significant acute joint swelling noted. Results Laboratory Results: 10/13/17 05:28 10/13/17 05:28 10/13/17 10/13/17 05:28 05:28 WBC 3.2 L RBC 3.28 L Hgb 10.5 L Hct 31.9 L MCV 97 MCH 32.2 MCHC 33.1 RDW 20.2 H Plt Count 114 L Sodium 132.0 L Potassium 4.6 Chloride 94 L Carbon Dioxide 26 Anion Gap 12 BUN 68 H Creatinine 7.23 H Est GFR ( Amer) 7 L Est GFR (Non-Af Amer) 5 L Glucose 86 Calcium 8.0 L 10/06/17 10/06/17 10/07/17 17:43 23:22 05:19 Troponin I 0.054 0.047 0.048 EKG Comments: Twelve-lead EKG reviewed. Relatively unchanged except for PVC Impressions: Chest X-Ray 10/06/17 14:47 IMPRESSION: Cardiomegaly with mild pulmonary edema. Cannot exclude a right lower lobe or middle lobe pneumonia. Assessment & Plan - Diagnosis (1) Atrial fibrillation with rapid ventricular response Is this a current diagnosis for this admission?: Yes (2) Dyspnea Qualifiers: Dyspnea type: unspecified Qualified Code(s): R06.00 - Dyspnea, unspecified Is this a current diagnosis for this admission?: Yes (3) H/O prosthetic mitral valve Is this a current diagnosis for this admission?: Yes (4) Hypotension (arterial) Qualifiers: Hypotension type: unspecified hypotension type Qualified Code(s): I95.9 - Hypotension, unspecified Is this a current diagnosis for this admission?: Yes (5) Wide-complex tachycardia Is this a current diagnosis for this admission?: Yes (6) Congestive heart failure (CHF) Qualifiers: Heart failure type: diastolic Heart failure chronicity: acute on chronic Qualified Code(s): I50.33 - Acute on chronic diastolic (congestive) heart failure Is this a current diagnosis for this admission?: Yes - Notes Notes: Atrial fibrillation with rapid ventricular response: Heart rate under better control. Continue metoprolol succinate to 25 mg p.o. every 12. May consider increasing it or adding digoxin. Patient does have problems with significant intermittent hypotension and is on Midodrin. Our choice of antiarrhythmics and other medication to control her heart rate response is limited. Continue patient on chronic anticoagulation already for mechanical prosthetic valve. Dyspnea: Most likely was related to atrial fibrillation with rapid ventricular response. Currently improved. History of prosthetic mechanical mitral and aortic valve: Clinically seems to be functioning adequately. Maintain chronic Coumadin therapy with INR range between 2.5-3.5. Hypotension: Possibly related to atrial fibrillation with rapid ventricular response. This is now improved. If nephrology agrees, we can place patient on digoxin at 0.125 mg p.o. every other day. Congestive heart failure: Based on echocardiogram report felt to be mainly diastolic dysfunction with significant contribution from right heart failure. Wide-complex tachycardia: Continue with beta-val therapy. Patient to report any syncope or near syncope. No significant recurrence of tachyarrhythmia. Patient has been generally stable from cardiac standpoint but she has significant underlying multiple medical comorbidities. Treatment options are somewhat difficult and limited in this patient. - Time Time with patient: 15-25 minutes - CODE STATUS was discussed, patient remains full code. Surrogate decision-maker unchanged. Multiple medical problems were addressed. More than 50% of the time spent coordinating care, discussing management plans with involved caregivers. Management plans discussed with involved personnels. Medical decision making was of moderate to high complexity , patient's has multiple comorbidities. Medications reviewed and adjusted accordingly: Yes
--- NOTE | 2017-10-13 14:25 | PDOC PROGRESS REPORT ---
Subjective Progress Note for:: 10/13/17 Reason For Visit: Seen today on HD . Undergoing dialysis without any issues. She denies any chest pains, fever or chills. Still some dyspnea with exertion. Labs and meds were reviewed with her. Orders were discussed with treating RN. Physical Exam Vital Signs: Temp Pulse Resp BP Pulse Ox 98.0 F 72 20 109/41 L 93 10/13/17 13:27 10/13/17 13:27 10/13/17 13:27 10/13/17 13:27 10/13/17 13:27 Intake & Output 10/12/17 10/13/17 10/14/17 06:59 06:59 06:59 Intake Total 887 1031 459 Output Total 1 0 Balance 886 1031 459 Weight 84.2 kg 85.2 kg General appearance: PRESENT: no acute distress Cardiovascular exam: PRESENT: irregular rhythm, +S1, +S2, tachycardia GI/Abdominal exam: PRESENT: soft. ABSENT: ascites, distended, rigid, tenderness Extremities exam: PRESENT: pedal edema Neurological exam: PRESENT: awake, oriented to person, oriented to place Results Laboratory Results: 10/13/17 05:28 10/13/17 05:28 10/13/17 10/13/17 05:28 05:28 WBC 3.2 L RBC 3.28 L Hgb 10.5 L Hct 31.9 L MCV 97 MCH 32.2 MCHC 33.1 RDW 20.2 H Plt Count 114 L Sodium 132.0 L Potassium 4.6 Chloride 94 L Carbon Dioxide 26 Anion Gap 12 BUN 68 H Creatinine 7.23 H Est GFR ( Amer) 7 L Est GFR (Non-Af Amer) 5 L Glucose 86 Calcium 8.0 L 10/06/17 10/06/17 10/07/17 17:43 23:22 05:19 Troponin I 0.054 0.047 0.048 Impressions: Chest X-Ray 10/06/17 14:47 IMPRESSION: Cardiomegaly with mild pulmonary edema. Cannot exclude a right lower lobe or middle lobe pneumonia. Assessment & Plan - Diagnosis (1) ESRD (end stage renal disease) on dialysis Is this a current diagnosis for this admission?: Yes Plan: Patient seen on hemodialysis. Undergoing dialysis well. Is being supervised to ensure safe and smooth procedure. Vital signs are stable even though blood pressure seems to be fluctuating towards the lower side. Plan to remove 3 L as tolerated. Orders were discussed with the treating nurse on dialysis. (2) Pneumonia Qualifiers: Pneumonia type: due to unspecified organism Laterality: right Lung location: lower lobe of lung Qualified Code(s): J18.1 - Lobar pneumonia, unspecified organism Is this a current diagnosis for this admission?: Yes Plan: Off IV antibiotics. Monitor closely. (3) Pulmonary hypertension, moderate to severe Is this a current diagnosis for this admission?: Yes Plan: With heart failure. She response to dialysis. (4) Atrial fibrillation with rapid ventricular response Is this a current diagnosis for this admission?: Yes Plan: As per cardiology. I agree with the limited options for rate control in this patient. Will agree with starting digoxin 0.0625 mg q od and will monitor levels as OP. (5) Acute hypoxemic respiratory failure Plan: On oxygen. Improving. (6) Hypotension Is this a current diagnosis for this admission?: Yes Plan: Increased midodrine to 10 and monitor.
[2017-10-13 15:06] VITALS: BP 88/55
--- NOTE | 2017-10-13 16:28 | PDOC DISCHARGE SUMMARY ---
General - Admit/Disc Date/PCP Admission Date/Primary Care Provider: 10/06/17 16:25 LUIZ BENEDICT MD Discharge Date: 10/13/17 - Additional Information Resuscitation Status: Full Code Prescriptions: Metoprolol Succinate [Toprol Xl 25 mg Tab.sr] 25 mg PO Q12 #60 tab.sr.24h Home Medications: Atorvastatin Calcium [Lipitor 20 mg Tablet] 20 mg PO QHS 10/06/17 Ferrous Sulfate [Iron] 325 mg PO BID 10/06/17 Pantoprazole Sodium [Protonix] 40 mg PO BID 10/06/17 Metoprolol Succinate [Toprol Xl 25 mg Tab.sr] 25 mg PO Q12 #60 tab.sr.24h Midodrine HCl [Proamatine 5 mg Tablet] 10 mg PO LUISA 30 Days #0 tablet 10/13/17 Warfarin Sodium [Coumadin 3 mg Tablet] 8 mg PO QHS tablet 10/13/17 History of Present Illness History of Present Illness: TAMMY BUCKLEY is a 77 year old female The patient is a 77-year-old -[place] female who initially presented to the emergency room with diarrhea and cough. Her past medical history is significant for atrial fibrillation, systolic and diastolic congestive heart failure, myocardial infarction and mechanical aortic and mitral valve replacement. She also has end-stage renal disease on hemodialysis. At the time of admission the patient was found to have atrial fibrillation with rapid ventricular response as well as pleural effusion due to her atrial fibrillation. Initially there were some concerns that she may have an underlying pneumonia but this is been ruled out. It was felt that the changes on her chest x-ray were due to vascular congestion from decompensated heart failure. The [facility] Hospital Course Hospital Course: Patient was admitted with atrial fibrillation with a rapid ventricular response. She was seen by the popcorn candy maker and her medications were adjusted. Patient continues on chronic anticoagulation with goal INR between 2.5 and 3.5. Patient also was found to have mainly diastolic dysfunction with likely right heart failure also contributing. She had wide complex tachycardia that was asymptomatic. She was evaluated by nephrology and received hemodialysis during her hospital stay. She was felt to be volume overloaded although her dialysis was somewhat limited by hypotension. She was continued on midodrine which helps stabilize her blood pressure. She has diastolic dysfunction which was acutely decompensated. Patient was found to be debilitated and she was recommended to go for acute rehabilitation however she insisted on going home with her and adamantly refused rehab placement. Home physical therapy as well as home health was provided for her INR was 2.65 today and patient's Coumadin was slightly adjusted out but she will need follow-up PT and INR to ensure adequate therapeutic anticoagulation. Physical Exam Vital Signs: Temp Pulse Resp BP Pulse Ox 98.0 F 72 20 109/41 L 93 10/13/17 13:27 10/13/17 13:27 10/13/17 13:27 10/13/17 13:27 10/13/17 13:27 Intake & Output 10/12/17 10/13/17 10/14/17 06:59 06:59 06:59 Intake Total 887 1031 459 Output Total 1 0 Balance 886 1031 459 Weight 84.2 kg 85.2 kg General appearance: PRESENT: no acute distress Head exam: PRESENT: atraumatic Neck exam: ABSENT: carotid bruit, JVD, lymphadenopathy, thyromegaly Respiratory exam: PRESENT: clear to auscultation kee. ABSENT: rales, rhonchi, wheezes Cardiovascular exam: PRESENT: irregular rhythm, +S1, +S2, systolic murmur - Grade 2 GI/Abdominal exam: PRESENT: normal bowel sounds, soft. ABSENT: distended, guarding, mass, organolmegaly, rebound, tenderness Rectal exam: PRESENT: deferred Extremities exam: PRESENT: full ROM. ABSENT: calf tenderness, clubbing, pedal edema Musculoskeletal exam: PRESENT: ambulatory Neurological exam: PRESENT: alert, awake, oriented to person, oriented to place , oriented to time, oriented to situation, CN II-XII grossly intact. ABSENT: motor sensory deficit Psychiatric exam: PRESENT: appropriate affect, normal mood. ABSENT: homicidal ideation, suicidal ideation Skin exam: PRESENT: dry, intact, warm. ABSENT: cyanosis, rash Results Laboratory Results: 10/13/17 05:28 10/13/17 05:28 10/13/17 10/13/17 05:28 05:28 WBC 3.2 L RBC 3.28 L Hgb 10.5 L Hct 31.9 L MCV 97 MCH 32.2 MCHC 33.1 RDW 20.2 H Plt Count 114 L Sodium 132.0 L Potassium 4.6 Chloride 94 L Carbon Dioxide 26 Anion Gap 12 BUN 68 H Creatinine 7.23 H Est GFR ( Amer) 7 L Est GFR (Non-Af Amer) 5 L Glucose 86 Calcium 8.0 L 10/06/17 10/06/17 10/07/17 17:43 23:22 05:19 Troponin I 0.054 0.047 0.048 Impressions: Chest X-Ray 10/06/17 14:47 IMPRESSION: Cardiomegaly with mild pulmonary edema. Cannot exclude a right lower lobe or middle lobe pneumonia. Qualifiers - * PATEINT BEING DISCHARGED WITH ANY OF THE FOLLOWING DIAGNOSIS?: No Plan Discharge Plan: PT and INR in 2 days and adjustment of Coumadin advised Time Spent: Greater than 30 Minutes
[2017-10-13] MEDS ORDERED: DIGOXIN 0.125 MG TABLET PO SCH ×2 (18:00)
== END 2017-10-13 16:04 | disposition home health service (06) | DRG 308 ==
LOC: ER 09:39 → EH 16:25 → 3S 10-07 01:48
PROVIDERS: ADMIT Emergency Medicine; ATTEND Emergency Medicine
PROC: 5A1D70Z Performance of Urinary Filtration, Intermittent, Less than 6 Hours Per Day (ICD-10-PCS; principal; 2017-10-08)
DX: I48.91 Unspecified atrial fibrillation (principal); N18.6 End stage renal disease; J96.01 Acute respiratory failure with hypoxia; I13.2 Hypertensive heart and chronic kidney disease with heart failure and with stage 5 chronic kidney disease, or end stage renal disease; D69.6 Thrombocytopenia, unspecified; E11.22 Type 2 diabetes mellitus with diabetic chronic kidney disease; I27.20 Pulmonary hypertension, unspecified; I95.9 Hypotension, unspecified; I11.0 Hypertensive heart disease with heart failure; I50.43 Acute on chronic combined systolic (congestive) and diastolic (congestive) heart failure; N39.0 Urinary tract infection, site not specified; D63.1 Anemia in chronic kidney disease; J44.9 Chronic obstructive pulmonary disease, unspecified; R00.0 Tachycardia, unspecified; E78.00 Pure hypercholesterolemia, unspecified; M19.90 Unspecified osteoarthritis, unspecified site; M10.9 Gout, unspecified; F17.210 Nicotine dependence, cigarettes, uncomplicated; Z79.01 Long term (current) use of anticoagulants; Z79.899 Other long term (current) drug therapy; Z95.2 Presence of prosthetic heart valve; Z71.6 Tobacco abuse counseling; Z99.2 Dependence on renal dialysis
CPT/HCPCS: 36415; 71045; 80048; 80053; 81001; 82550; 83605; 83735; 84100; 84439; 84443; 84484; 85025; 85027; 85610; 85730; 87040; 87086; 93005; 93010; 93306; 96374; 96375; 99291; G8978-GP; G8979-GP; G8987-GO; G8988-GO; J0282; J0692; J1160; J1644; J1940; J2020; J3490; J7040; J7060; Q4081

== ENCOUNTER 2017-10-20 14:18 | Inpatient (IN) | payer MEDICARE, OTHER ==
--- NOTE | 2017-10-20 14:45 | ER Document Report ---
ED General - General Mode of Arrival: Medic Information source: Patient TRAVEL OUTSIDE OF THE [place] IN LAST 30 DAYS: No <LOUISE PABLO - Last Filed: 10/20/17 23:18> <MYA BOND - Last Filed: 10/20/17 23:23> - General Stated Complaint: RIGHT LEG SWELLING Time Seen by Provider: 10/20/17 14:35 Notes: Patient is a 77 year old female with a history of CHF, COPD, and dialysis presents to the emergency department complaining of bilateral lower extremity swelling and shortness of breath onset 2 days ago. Patient denies any chest pain , nausea, or vomiting. Patient also mentions she had an appointment today with her PCP, Dr. Gage but was unable to go due to the swelling. Patient was recently discharged from the hospital on 10/13/2017 with pulmonary edema which was originally thought to be pneumonia. Patient states she has recently been instructed to discontinue her diuretic. Patient denies a history of blood clots. (LOUISE PABLO) - Related Data Allergies/Adverse Reactions: Penicillins Allergy (Severe, Verified 10/20/17 15:33) Swelling of hands and/or feet vancomycin [Vancomycin] Adverse Reaction (Intermediate, Verified 10/20/17 15:33) Swelling of hands and/or feet hydrochlorothiazide [From Dyazide] Adverse Reaction (Verified 10/20/17 15:33) Swelling of hands and/or feet triamterene [From Dyazide] Adverse Reaction (Verified 10/20/17 15:33) Swelling of hands and/or feet Past Medical History - General Information source: Patient, [facility] Records - Social History Smoking Status: Current Every Day Smoker Chew tobacco use (# tins/day): No Frequency of alcohol use: None Drug Abuse: None Family History: COPD, DM, Hypertension - Past Medical History Cardiac Medical History: Reports: Hx Atrial Fibrillation, Hx Congestive Heart Failure - Systolic and diastolic, Hx Heart Attack, Hx Hypercholesterolemia, Hx Hypertension, Hx Heart Murmur - Aortic and mitral valve replacement. Pulmonary Medical History: Reports: Hx COPD, Hx Pneumonia Endocrine Medical History: Reports: Hx Diabetes Mellitus Type 2 Renal/ Medical History: Reports: Hx End Stage Renal Disease, Hx Hemodialysis GI Medical History: Reports: Hx Colonoscopy, Hx Endoscopy Musculoskeltal Medical History: Reports Hx Arthritis, Reports Hx Gout Past Surgical History: Reports: Hx Cardiac Surgery - artificial valves x2, Hx Hysterectomy, Hx Orthopedic Surgery - Back surgery 2, Hx Valve Replacement - Mitral and aortic valve replacement, Other - EGD, colonoscopy, right IJV PermCath - Immunizations Hx Diphtheria, Pertussis, Tetanus Vaccination: Yes Hx Pneumococcal Vaccination: 07/28/13 <LOUISE PABLO - Last Filed: 10/20/17 23:18> Review of Systems - Review of Systems Constitutional: No symptoms reported EENT: No symptoms reported Cardiovascular: No symptoms reported Respiratory: See HPI, Short of breath Gastrointestinal: No symptoms reported Genitourinary: No symptoms reported Female Genitourinary: No symptoms reported Musculoskeletal: See HPI, Leg swelling Skin: No symptoms reported Hematologic/Lymphatic: No symptoms reported Neurological/Psychological: No symptoms reported -: Yes All other systems reviewed and negative <LOUISE PABLO - Last Filed: 10/20/17 23:18> Physical Exam <LOUISE PABLO - Last Filed: 10/20/17 23:18> <MYA BOND - Last Filed: 10/20/17 23:23> - Vital signs Vitals: Pulse Ox 96 10/20/17 14:30 - Notes Notes: GENERAL: Alert, interacts well. No acute distress. HEAD: Normocephalic, atraumatic. EYES: Pupils equal, round, and reactive to light. Extraocular movements intact. ENT: Oral mucosa moist, tongue midline. NECK: JVD. Full range of motion. Supple. Trachea midline. LUNGS: Mildly short of breath. No wheezing, rales 1/2 of the lung zone bilaterally. HEART: Dialysis catheter located in the right upper chest. Regular rate and rhythm. No murmurs, gallops, or rubs. ABDOMEN: Soft, tender to palpation to the RUQ. Non-distended. Bowel sounds present in all 4 quadrants. Liver enlarged. EXTREMITIES: Moves all 4 extremities spontaneously. 3+ pitting edema to the right LE which resolves just below the right knee, 3+ pitting edema to the left foot which resolves just above the left ankle. NEUROLOGICAL: Alert and oriented x3. Normal speech. PSYCH: Normal affect, normal mood. SKIN: Warm, dry. No rashes or lesions noted. (LOUISE PABLO) Course - Laboratory Result Diagrams: 10/20/17 15:21 10/20/17 16:12 <LOUISE PABLO - Last Filed: 10/20/17 23:18> - Laboratory Result Diagrams: 10/20/17 15:21 10/20/17 16:12 <MYA BOND - Last Filed: 10/20/17 23:23> - Re-evaluation Re-evalutation: 10/20/17 18:13 CBC shows dilutional anemia with hemoglobin 9.4 worsened from discharge, no leukocytosis, INR is prolonged at 3.86 despite the fact that she states she has not been taking her warfarin, venous blood gas shows a low pH of 7.28, CO2 elevated 62.9, chemistries show end-stage renal disease with an elevated BUN and creatinine consistent with prior values, potassium slightly elevated at 5.1 , troponin indeterminate 0.099, proBNP markedly elevated at 151,000. Chest x- ray shows pulmonary edema versus infiltrate, given the lack of fever, cough or leukocytosis I favor pulmonary edema. Venous Doppler does not show DVT despite the asymmetric swelling in the right lower extremity. Patient is treated with Lasix, discussed with Dr. Nelson who agrees to dialyze her tomorrow and understands that she may need dialysis for several days back to back. Discussed with Dr. Esqueda who accepts the patient to his service on the hospitalist service to the [facility]. (MYA BOND) - Vital Signs Vital signs: Temp Pulse Resp BP Pulse Ox 23 H 115/91 H 94 10/20/17 22:01 10/20/17 22:01 10/20/17 22:01 - Laboratory Laboratory results interpreted by me: 10/20/17 10/20/17 10/20/17 15:21 15:21 15:21 RBC 2.94 L Hgb 9.4 L Hct 29.1 L MCV 99 H RDW 20.1 H Lymphocytes % 11.5 L Monocytes % 17.7 H PT 39.6 H APTT 42.9 H VBG pH 7.28 L Potassium BUN Creatinine Est GFR ( Amer) Est GFR (Non-Af Amer) Direct Bilirubin NT-Pro-B Natriuret Pep 10/20/17 10/20/17 10/20/17 16:12 16:12 16:12 RBC Hgb Hct MCV RDW Lymphocytes % Monocytes % PT 38.8 H APTT VBG pH Potassium 5.1 H BUN 79 H Creatinine 6.94 H Est GFR ( Amer) 7 L Est GFR (Non-Af Amer) 6 L Direct Bilirubin 0.5 H NT-Pro-B Natriuret Pep [id number] H - EKG Interpretation by Me Additional EKG results interpreted by me: 10/20/17 18:15 EKG shows atrial fibrillation at a rate of 90, multiple PVCs which are polymorphic, right bundle branch block, LVH, no STEMI, left anterior hemiblock per my interpretation. (MYA BOND) Discharge <LOUISE PABLO - Last Filed: 10/20/17 23:18> - Discharge Admitting Provider: Hospitalist - [facility] Admitted: [facility] <MYA BOND - Last Filed: 10/20/17 23:23> - Discharge Clinical Impression: Excessive anticoagulation, Acute on chronic combined systolic and diastolic CHF (congestive heart failure) Dyspnea Qualifiers: Dyspnea type: orthopnea Qualified Code(s): R06.01 - Orthopnea Diabetes mellitus, type 2 Qualifiers: Diabetes mellitus terminal clerk insulin use: with terminal clerk use Diabetes mellitus complication status: with kidney complications Diabetes mellitus complication detail: with chronic kidney disease Chronic kidney disease stage: on chronic dialysis Qualified Code(s): E11.22 - Type 2 diabetes mellitus with diabetic chronic kidney disease Condition: Fair Disposition: ADMITTED INPATIENT Scribe Attestation: 10/20/17 23:23 I personally performed the services described in the documentation, reviewed and edited the documentation which was dictated to the scribe in my presence, and it accurately records my words and actions. (MYA BOND) Scribe Documentation - Scribe Written by Emilie:: Emilie Fabian, 10/20/2017 15:19 acting as scribe for :: Casey <LOUISE PABLO - Last Filed: 10/20/17 23:18>
[2017-10-20] MEDS ORDERED: ASPIRIN 81 MG TABLET, CHEWABLE PO ONE (14:46)
[2017-10-20] MEDS ORDERED: FUROSEMIDE INJ/PF 40 MG/4 ML SDV IV ONE (14:46)
[2017-10-20 15:40] LABS: VENOUS BLOOD HCO3 29.2 mmol/L (20-32); VENOUS BLOOD PCO2 62.9 mmHg (35-63); VENOUS BLOOD PH 7.28 (7.30-7.42)
--- NOTE | 2017-10-20 15:41 | RADIOLOGY REPORT (SQ) ---
EXAM DESCRIPTION: CHEST SINGLE VIEW COMPLETED DATE/TIME: 10/20/2017 3:32 pm REASON FOR STUDY: SOB, rales, PNA COMPARISON: 10/06/2017 EXAM PARAMETERS: NUMBER OF VIEWS: One view. TECHNIQUE: Single frontal radiographic view of the chest acquired. RADIATION DOSE: NA LIMITATIONS: None. FINDINGS: LUNGS AND PLEURA: Right pleural effusion is again identified and I cannot exclude some ass ociated atelectasis or infiltrate in the right mid and lower lung field. There is ill-defined increa sed density in the left upper and mid lung patel which could represent a developing infiltrate or pu lmonary edema. MEDIASTINUM AND HILAR STRUCTURES: No masses. Contour normal. HEART AND VASCULAR STRUCTURES: Cardiac silhouette remains enlarged. There is pulmonary vascular calli estion. BONES: No acute findings. HARDWARE: Dual lumen catheter is unchanged in position. Patient is status post median sternotomy. OTHER: No other significant finding. IMPRESSION: Cardiomegaly with pulmonary vascular congestion. Right pleural effusion is again identi fied and I cannot exclude some associated atelectasis or infiltrate in the right mid and lower lung f ield. Ill-defined increased density in the left upper and mid lung patel which could represent a de veloping infiltrate or pulmonary edema. Other findings as noted above TECHNICAL DOCUMENTATION: JOB ID: [id number] [employer]- All Rights Reserved Reading location - IP/workstation name: [email or web address]
[2017-10-20 15:42] LABS: ABSOLUTE BASOPHILS # (AUTO) 0.1 10^3/uL (0.0-0.2); ABSOLUTE LYMPHOCYTES (AUTO) 0.5 10^3/uL (0.5-4.7); ABSOLUTE MONOCYTES (AUTO) 0.8 10^3/uL (0.1-1.4); ABSOLUTE NEUT (AUTO) 3.1 10^3/uL (1.7-8.2); BASOPHILS % (AUTO) 1.8 % (0-2); EOSINOPHILS % (AUTO) 0.5 % (0-6); HEMATOCRIT 29.1 % (36.0-47.0); HEMOGLOBIN 9.4 g/dL (12.0-15.5); LYMPHOCYTES % (AUTO) 11.5 % (13-45); MEAN CORPUSCULAR HEMOGLOBIN 31.9 pg (27.0-33.4); MEAN CORPUSCULAR HGB CONC 32.3 g/dL (32.0-36.0); MEAN CORPUSCULAR VOLUME 99 fl (80-97); MONOCYTES % (AUTO) 17.7 % (3-13); PLATELET COUNT 194 10^3/uL (150-450); RED BLOOD COUNT 2.94 10^6/uL (3.72-5.28); RED CELL DISTRIBUTION WIDTH 20.1 % (11.5-14.0); SEGMENTED NEUTROPHILS % (AUTO) 68.5 % (42-78); TOTAL CELLS COUNTED % (AUTO) 100 %; WHITE BLOOD COUNT 4.6 10^3/uL (4.0-10.5)
[2017-10-20 15:46] LABS: INTERNATIONAL RATION (INR) 3.86; PROTHROMBIN TIME 39.6 SEC (11.4-15.4)
[2017-10-20 15:47] LABS: PARTIAL THROMBOPLASTIN TIME 42.9 SEC (23.5-35.8)
--- NOTE | 2017-10-20 16:16 | RADIOLOGY REPORT (SQ) ---
EXAM DESCRIPTION: VENOUS UNILATERAL LOWER COMPLETED DATE/TIME: 10/20/2017 4:08 pm REASON FOR STUDY: right leg swelling far greater than L COMPARISON: None. TECHNIQUE: Dynamic and static mcgee scale and color images acquired of the right leg venous system. S elected spectral images acquired with additional compression and augmentation maneuvers. The contrala teral common femoral vein and saphenofemoral junction were also imaged. Images stored on PACS. LIMITATIONS: None. FINDINGS: COMMON FEMORAL: Normal phasicity, compression and augmentation. No visualized echogenic ma terial on mcgee scale. No defects on color images. FEMORAL: Normal compression and augmentation. No visualized echogenic material on mcgee scale. No defe cts on color images. POPLITEAL: Normal compression, augmentation. No visualized echogenic material on mcgee scale. No defec ts on color images. CALF VESSELS: Normal compression, augmentation. No visualized echogenic material on mcgee scale. No de fects on color images. GSV and SSV: Normal compression, augmentation. No visualized echogenic material on mcgee scale. No def ects on color images. ANY DEEP VENOUS INSUFFICIENCY: Not evaluated. ANY EVIDENCE OF POPLITEAL CYST: No. OTHER: No other significant finding. CONTRALATERAL COMMON FEMORAL VEIN AND SAPHENOFEMORAL JUNCTION: Normal phasicity, compression and augmentation. No visualized echogenic material on mcgee scale. No de fects on color images. IMPRESSION: NO EVIDENCE DVT OR SVT IN THE RIGHT LEG. TECHNICAL DOCUMENTATION: JOB ID: [id number] [employer]- All Rights Reserved Reading location - IP/workstation name: [email or web address]
[2017-10-20 16:17] LABS: ANISOCYTOSIS 2+; HYPOCHROMASIA 1+; OVALOCYTES 1+; POIKILOCYTOSIS 1+; SCHISTOCYTES SLIGHT; TOXIC GRANULATION SLIGHT; TOXIC VACUOLATION PRESENT
[2017-10-20 16:18] LABS: ACANTHOCYTES SLIGHT; PLATELET COMMENT ADEQUATE; POLYCHROMASIA 1+
[2017-10-20 16:53] LABS: ALANINE AMINOTRANSFERASE 26 U/L (9-52); ALBUMIN 3.8 g/dL (3.5-5.0); ALKALINE PHOSPHATASE 119 U/L (38-126); ANION GAP 11 (5-19); ASPARTATE AMINO TRANSFERASE 30 U/L (14-36); BILIRUBIN,DIRECT 0.5 mg/dL (0.0-0.4); BILIRUBIN,TOTAL 0.5 mg/dL (0.2-1.3); BLOOD UREA NITROGEN 79 mg/dL (7-20); CALCIUM 8.6 mg/dL (8.4-10.2); CARBON DIOXIDE 30 mmol/L (22-30); CHLORIDE 100 mmol/L (98-107); CREATINE KINASE 34 U/L (30-135); GLUCOSE 98 mg/dL (75-110); POTASSIUM 5.1 mmol/L (3.6-5.0); SODIUM 140.6 mmol/L (137-145); TOTAL PROTEIN 7.3 g/dL (6.3-8.2)
[2017-10-20 17:14] LABS: CREATINE KINASE MB 1.12 ng/mL (<4.55); TROPONIN I 0.099 ng/mL
[2017-10-20] MEDS ORDERED: GUAIFENESIN SYRP 200 MG/10 ML UDC PO PRN (18:33)
[2017-10-20] MEDS ORDERED: IPRATROPIUM/ALBUTEROL 0.5-2.5 MG/3 ML AMPUL NEB PRN (18:33)
--- NOTE | 2017-10-20 18:53 | PDOC H&P ---
History of Present Illness Admission Date/PCP: 10/20/17 18:20 CHRIS BENEDICT MD Patient complains of: Leg swelling as well as difficulty breathing and shortness of breath History of Present Illness: TAMMY BUCKLEY is a 77 year old female This patient presents to the emergency room with complaints of increased leg swelling and difficulty breathing. She was just recently discharged from the hospital on October 13. She denies any chest pain nausea vomiting. She does have history significant for atrial fibrillation as well as mechanical aortic and mitral valve replacement. She was felt to have decompensated diastolic heart failure and she received dialysis to help adjust her fluid balance. It was recommended for her to be discharged to rehabilitation however patient refused and insisted on going home with her spouse. Past Medical History Cardiac Medical History: Reports: Atrial Fibrillation, Congestive Heart Failure - Systolic and diastolic, Myocardial Infarction, Hyperlipidema, Hypertension, Heart Murmur - Aortic and mitral valve replacement. Denies: Coronary Artery Disease Pulmonary Medical History: Reports: Chronic Obstructive Pulmonary Disease (COPD) , Pneumonia Denies: Asthma, Bronchitis Neurological Medical History: Denies: Seizures Endocrine Medical History: Reports: Diabetes Mellitus Type 2 Renal/ Medical History: Reports: End Stage Renal Disease Musculoskeltal Medical History: Reports: Arthritis, Gout Psychiatric Medical History: Denies: Depression Hematology: Denies: Anemia Past Surgical History Past Surgical History: Reports: None, Hysterectomy, Orthopedic Surgery - Back surgery 2, Valve Replacement - Mitral and aortic valve replacement, Other - EGD, colonoscopy, right IJV PermCath Social History Information Source: Patient Smoking Status: Current Every Day Smoker Frequency of Alcohol Use: None Hx Recreational Drug Use: No Drugs: None Hx Prescription Drug Abuse: No Family History Family History: COPD, DM, Hypertension Parental Family History Reviewed: No Children Family History Reviewed: No Sibling(s) Family History Reviewed.: Unknown Medication/Allergy Home Medications: Ferrous Sulfate [Iron] 325 mg PO BID 10/06/17 Pantoprazole Sodium [Protonix] 40 mg PO DAILY 10/06/17 Digoxin [Lanoxin 0.125 mg Tablet] 0.0625 mg PO Q48H MDD NOT STARTED YET Escitalopram Oxalate [Lexapro 10 mg Tablet] 20 mg PO DAILY 10/20/17 Lorazepam [Ativan 1 mg Tablet] 1 mg PO Q6HP PRN 10/20/17 Metolazone [Zaroxolyn 5 Mg Tablet] 5 mg PO Q12 10/20/17 Metoprolol Succinate [Toprol Xl 25 mg Tab.sr] 25 mg PO Q12 10/20/17 Midodrine HCl [Proamatine 5 mg Tablet] 10 mg PO TID 10/20/17 Warfarin Sodium [Coumadin 7.5 mg Tablet] 7.5 mg PO SUTUTHSA@2200 10/20/17 Allergies/Adverse Reactions: Penicillins Allergy (Severe, Verified 10/20/17 15:33) Swelling of hands and/or feet vancomycin [Vancomycin] Adverse Reaction (Intermediate, Verified 10/20/17 15:33) Swelling of hands and/or feet hydrochlorothiazide [From Dyazide] Adverse Reaction (Verified 10/20/17 15:33) Swelling of hands and/or feet triamterene [From Dyazide] Adverse Reaction (Verified 10/20/17 15:33) Swelling of hands and/or feet Review of Systems Constitutional: ABSENT: chills, fever(s), headache(s), weight gain, weight loss Cardiovascular: PRESENT: dyspnea on exertion, edema. ABSENT: chest pain Respiratory: PRESENT: dyspnea Gastrointestinal: ABSENT: abdominal pain, constipation, diarrhea, hematemesis, hematochezia, nausea, vomiting Musculoskeletal: PRESENT: muscle weakness Integumentary: ABSENT: rash, wounds Neurological: ABSENT: abnormal gait, abnormal speech, confusion, dizziness, focal weakness, syncope Physical Exam Vital Signs: Temp Pulse Resp BP Pulse Ox 96 10/20/17 14:47 General appearance: PRESENT: no acute distress Head exam: PRESENT: atraumatic Eye exam: PRESENT: conjunctiva pink, EOMI, PERRLA. ABSENT: scleral icterus Neck exam: ABSENT: carotid bruit, JVD, lymphadenopathy, thyromegaly Respiratory exam: PRESENT: clear to auscultation kee. ABSENT: rales, rhonchi, wheezes Cardiovascular exam: PRESENT: irregular rhythm. ABSENT: diastolic murmur, rubs , systolic murmur Pulses: PRESENT: normal dorsalis pedis pul GI/Abdominal exam: PRESENT: normal bowel sounds, soft. ABSENT: distended, guarding, mass, organolmegaly, rebound, tenderness Rectal exam: PRESENT: deferred Extremities exam: PRESENT: full ROM, other - 3+ edema. ABSENT: calf tenderness , clubbing, pedal edema Musculoskeletal exam: PRESENT: ambulatory Neurological exam: PRESENT: alert, oriented to person, oriented to place, oriented to time, oriented to situation Psychiatric exam: PRESENT: appropriate affect, normal mood. ABSENT: homicidal ideation, suicidal ideation Skin exam: PRESENT: dry, intact, warm. ABSENT: cyanosis, rash Results Laboratory Results: Laboratory 10/20/17 10/20/17 10/20/17 15:21 15:21 15:21 WBC 4.6 RBC 2.94 L Hgb 9.4 L Hct 29.1 L MCV 99 H MCH 31.9 MCHC 32.3 RDW 20.1 H Plt Count 194 Seg Neutrophils % 68.5 Lymphocytes % 11.5 L Monocytes % 17.7 H Eosinophils % 0.5 Basophils % 1.8 Absolute Neutrophils 3.1 Absolute Lymphocytes 0.5 Absolute Monocytes 0.8 Absolute Eosinophils 0.0 Absolute Basophils 0.1 Toxic Granulation SLIGHT Toxic Vacuolation PRESENT Platelet Comment ADEQUATE Polychromasia 1+ Hypochromasia 1+ Poikilocytosis 1+ Anisocytosis 2+ Target Cells Ovalocytes 1+ Acanthocytes (Spur) SLIGHT Schistocytes SLIGHT PT INR APTT VBG pH VBG pCO2 VBG HCO3 VBG Base Excess Sodium Cancelled Potassium Cancelled Chloride Cancelled Carbon Dioxide Cancelled Anion Gap Cancelled BUN Cancelled Creatinine Cancelled Est GFR ( Amer) Cancelled Est GFR (Non-Af Amer) Cancelled Glucose Cancelled Calcium Cancelled Total Bilirubin Cancelled Direct Bilirubin Cancelled Neonat Total Bilirubin Cancelled Neonat Direct Bilirubin Cancelled Neonat Indirect Bili Cancelled AST Cancelled ALT Cancelled Alkaline Phosphatase Cancelled Creatine Kinase Cancelled CK-MB (CK-2) Cancelled Troponin I Cancelled NT-Pro-B Natriuret Pep Cancelled Total Protein Cancelled Albumin Cancelled 10/20/17 10/20/17 10/20/17 15:21 15:21 16:12 WBC RBC Hgb Hct MCV MCH MCHC RDW Plt Count Seg Neutrophils % Lymphocytes % Monocytes % Eosinophils % Basophils % Absolute Neutrophils Absolute Lymphocytes Absolute Monocytes Absolute Eosinophils Absolute Basophils Toxic Granulation Toxic Vacuolation Platelet Comment Polychromasia Hypochromasia Poikilocytosis Anisocytosis Target Cells Ovalocytes Acanthocytes (Spur) Schistocytes PT 39.6 H INR 3.86 APTT 42.9 H VBG pH 7.28 L VBG pCO2 62.9 VBG HCO3 29.2 VBG Base Excess 1.0 Sodium Potassium Chloride Carbon Dioxide Anion Gap BUN Creatinine Est GFR ( Amer) Est GFR (Non-Af Amer) Glucose Calcium Total Bilirubin Direct Bilirubin Neonat Total Bilirubin Neonat Direct Bilirubin Neonat Indirect Bili AST ALT Alkaline Phosphatase Creatine Kinase CK-MB (CK-2) 1.12 Troponin I 0.099 NT-Pro-B Natriuret Pep [id number] H Total Protein Albumin 10/20/17 16:12 WBC RBC Hgb Hct MCV MCH MCHC RDW Plt Count Seg Neutrophils % Lymphocytes % Monocytes % Eosinophils % Basophils % Absolute Neutrophils Absolute Lymphocytes Absolute Monocytes Absolute Eosinophils Absolute Basophils Toxic Granulation Toxic Vacuolation Platelet Comment Polychromasia Hypochromasia Poikilocytosis Anisocytosis Target Cells Ovalocytes Acanthocytes (Spur) Schistocytes PT INR APTT VBG pH VBG pCO2 VBG HCO3 VBG Base Excess Sodium 140.6 Potassium 5.1 H Chloride 100 Carbon Dioxide 30 Anion Gap 11 BUN 79 H Creatinine 6.94 H Est GFR ( Amer) 7 L Est GFR (Non-Af Amer) 6 L Glucose 98 Calcium 8.6 Total Bilirubin 0.5 Direct Bilirubin 0.5 H Neonat Total Bilirubin Not Reportable Neonat Direct Bilirubin Not Reportable Neonat Indirect Bili Not Reportable AST 30 ALT 26 Alkaline Phosphatase 119 Creatine Kinase 34 CK-MB (CK-2) Troponin I NT-Pro-B Natriuret Pep Total Protein 7.3 Albumin 3.8 EKG Comments: Atrial Fibrillation with PVC Impressions: Chest X-Ray 10/20/17 14:47 IMPRESSION: Cardiomegaly with pulmonary vascular congestion. Right pleural effusion is again identified and I cannot exclude some associated atelectasis or infiltrate in the right mid and lower lung field. Ill-defined increased density in the left upper and mid lung patel which could represent a developing infiltrate or pulmonary edema. Other findings as noted above Venous Doppler Study 10/20/17 14:58 IMPRESSION: NO EVIDENCE DVT OR SVT IN THE RIGHT LEG. Assessment & Plan - Diagnosis (1) Diastolic CHF Qualifiers: Heart failure chronicity: chronic Qualified Code(s): I50.32 - Chronic diastolic (congestive) heart failure Is this a current diagnosis for this admission?: Yes Plan: Secondary to ESRD. Plan is to dialyze in am (2) Atrial fibrillation Qualifiers: Atrial fibrillation type: chronic Qualified Code(s): I48.2 - Chronic atrial fibrillation Is this a current diagnosis for this admission?: Yes Plan: Controlled, on Coumadin (3) End stage renal disease Is this a current diagnosis for this admission?: Yes Plan: For dialysis in am. Nephrology has been contacted (4) Mechanical heart valve present Is this a current diagnosis for this admission?: Yes Plan: Continue Coumadin, goal INR 3-4 - Time Time Spent: 30 to 50 Minutes Critical Time spent with patient: Less than 15 minutes Medications reviewed and adjusted accordingly: Yes Anticipated discharge: Home Within: within 48 hours - Inpatient Certification Based on my medical assessment, after consideration of the patient's comorbidities, presenting symptoms, or acuity I expect that the services needed warrant INPATIENT care.: Yes Medical Necessity: Other - Diuresis - Plan Summary Plan Summary: Although CXR shows a possible infiltrate there is no clinical evidence of PNA. Will defer any antibiotic treatment
[2017-10-20 19:06] LABS: INTERNATIONAL RATION (INR) 3.75; PROTHROMBIN TIME 38.8 SEC (11.4-15.4)
--- NOTE | 2017-10-20 19:06 | EKG REPORT ---
SEVERITY:- ABNORMAL ECG - ATRIAL FIBRILLATION RIGHT BUNDLE BRANCH BLOCK LVH WITH SECONDARY REPOLARIZATION ABNORMALITY OLD INFERIOR [place] : Confirmed by: Michael Foster MD 20-Oct-2017 19:05:53
[2017-10-20] MEDS ORDERED: WARFARIN SODIUM 5 MG TABLET PO SCH (22:00)
[2017-10-20] MEDS: METOPROLOL SUCCINATE 25 MG TAB.SR.24H PO SCH (22:12)
[2017-10-20] MEDS: ATORVASTATIN CALCIUM 20 MG TABLET PO SCH (22:12)
[2017-10-21 02:04] LABS: APPEARANCE,URINE CLOUDY; BILIRUBIN,URINE SMALL (NEGATIVE); COLOR,URINE YELLOW; GLUCOSE, URINE NEGATIVE (NEGATIVE); KETONES,URINE NEGATIVE (NEGATIVE); LEUKOCYTE ESTERASE,URINE MODERATE (NEGATIVE); NITRITE,URINE NEGATIVE (NEGATIVE); PROTEIN,URINE 100 mg/dL (NEGATIVE); URINE SPECIFIC GRAVITY 1.018
[2017-10-21] MEDS: LANSOPRAZOLE 30 MG TAB.RAP.DR PO SCH ×2 (05:03→18:13)
[2017-10-21 07:08] LABS: HEMOGLOBIN 8.8 g/dL (12.0-15.5); MEAN CORPUSCULAR HEMOGLOBIN 32.2 pg (27.0-33.4); MEAN CORPUSCULAR HGB CONC 32.7 g/dL (32.0-36.0); MEAN CORPUSCULAR VOLUME 99 fl (80-97); PLATELET COUNT 194 10^3/uL (150-450); RED BLOOD COUNT 2.74 10^6/uL (3.72-5.28); RED CELL DISTRIBUTION WIDTH 19.8 % (11.5-14.0); WHITE BLOOD COUNT 4.5 10^3/uL (4.0-10.5)
[2017-10-21 07:19] LABS: INTERNATIONAL RATION (INR) 3.91
[2017-10-21 07:35] LABS: ANION GAP 12 (5-19); BLOOD UREA NITROGEN 98 mg/dL (7-20); CALCIUM 8.8 mg/dL (8.4-10.2); CARBON DIOXIDE 28 mmol/L (22-30); CHLORIDE 101 mmol/L (98-107); GLUCOSE 131 mg/dL (75-110); POTASSIUM 5.6 mmol/L (3.6-5.0); SODIUM 141.1 mmol/L (137-145)
[2017-10-21] MEDS: MIDODRINE HCL 5 MG TABLET PO SCH ×3 (10:02→18:12)
[2017-10-21] MEDS ORDERED: EPOETIN ALFA INJ 20000 UNIT/1 ML VIAL (RENAL) IV PRN (11:06)
[2017-10-21] MEDS ORDERED: HEPARIN SOD (PORCINE) 1,000 UNIT/ML 10 ML VIAL IV PRN (12:15)
--- NOTE | 2017-10-21 12:58 | PDOC CONSULTATION ---
Consultation Consult Date: 10/21/17 Consult reason:: Urgent hemodialysis in the setting of congestive heart failure. History of Present Illness Admission Date/PCP: 10/20/17 18:20 CHRIS BENEDICT MD History of Present Illness: TAMMY BUCKLEY is a 77 year old femaleWith a history of chronic hypotension on midodrine, atrial fibrillation with intermittent relapses of heart failure, ESRD on hemodialysis, Progressive worsening dementia presents to the ER with complaints of progressive edema and shortness of breath with exertion. She was just recently discharged from the hospital on October 13 after being admitted for rapid A. fib and decompensated heart failure. She denies any chest pain nausea vomiting. She does have history significant for atrial fibrillation as well as mechanical aortic and mitral valve replacement. She has got issues with compliance with the medications and diet because of poor psychosocial situations. She lives with her who is also quite debilitated at home and has poor social support. Evaluations revealed that she was in CHF. She has been admitted for dialysis as the moment. I am seeing her on dialysis she is undergoing without any issues. Plan to remove around 4 L as tolerated. Orders were discussed with the treating dialysis nurse. Past Medical History Cardiac Medical History: Reports: Atrial Fibrillation, Heart Murmur - Aortic and mitral valve replacement., Hyperlipidemia, Myocardial Infarction Denies: Coronary Artery Disease Cardiac History Note: Chronic hypotension on midodrine Pulmonary Medical History: Reports: Chronic Obstructive Pulmonary Disease (COPD) , Pneumonia Denies: Asthma, Bronchitis Neurological Medical History: Denies: Seizures Endocrine Medical History: Reports: Diabetes Mellitus Type 2 Renal/ Medical History: Reports: End Stage Renal Disease, Secondary Hyperparathyroidism Musculoskeltal Medical History: Reports: Arthritis, Gout Psychiatric Medical History: Reports: Dementia Denies: Depression Hematology Medical History: Reports Anemia of Chronic Kidney Disease Past Surgical History Past Surgical History: Reports: None, Hysterectomy, Orthopedic Surgery - Back surgery 2, Valve Replacement - Mitral and aortic valve replacement, Other - EGD, colonoscopy, right IJV PermCath Social History Smoking Status: Current Every Day Smoker Cigarettes Packs Per Day: 0.5 Number of Years Smokin Last Time Smoked: 10/19/17 Frequency of Alcohol Use: None Hx Recreational Drug Use: No Drugs: None Hx Prescription Drug Abuse: No Family History Parental Family History Reviewed: Yes - Negative for ESRD Children Family History Reviewed: No Sibling(s) Family History Reviewed.: No Medication/Allergy Home Medications: Ferrous Sulfate [Iron] 325 mg PO BID 10/06/17 Pantoprazole Sodium [Protonix] 40 mg PO DAILY 10/06/17 Digoxin [Lanoxin 0.125 mg Tablet] 0.0625 mg PO Q48H MDD NOT STARTED YET Escitalopram Oxalate [Lexapro 10 mg Tablet] 20 mg PO DAILY 10/20/17 Lorazepam [Ativan 1 mg Tablet] 1 mg PO Q6HP PRN 10/20/17 Metolazone [Zaroxolyn 5 Mg Tablet] 5 mg PO Q12 10/20/17 Metoprolol Succinate [Toprol Xl 25 mg Tab.sr] 25 mg PO Q12 10/20/17 Midodrine HCl [Proamatine 5 mg Tablet] 10 mg PO TID 10/20/17 Warfarin Sodium [Coumadin 7.5 mg Tablet] 7.5 mg PO SUTUTHSA@2200 10/20/17 Allergies/Adverse Reactions: Penicillins Allergy (Severe, Verified 10/20/17 15:33) Swelling of hands and/or feet vancomycin [Vancomycin] Adverse Reaction (Intermediate, Verified 10/20/17 15:33) Swelling of hands and/or feet hydrochlorothiazide [From Dyazide] Adverse Reaction (Verified 10/20/17 15:33) Swelling of hands and/or feet triamterene [From Dyazide] Adverse Reaction (Verified 10/20/17 15:33) Swelling of hands and/or feet Review of Systems Constitutional: PRESENT: fatigue, weakness. ABSENT: fever(s), headache(s), night sweats Nose, Mouth, and Throat: ABSENT: mouth pain, sore throat Cardiovascular: PRESENT: dyspnea on exertion, edema. ABSENT: orthropnea Respiratory: PRESENT: dyspnea. ABSENT: cough, hemoptysis Gastrointestinal: ABSENT: coffee ground emesis, constipation, diarrhea, dysphagia, heartburn, hematemesis, melena, nausea Neurological: ABSENT: abnormal gait, confusion, focal weakness, frequent falls Hematologic/Lymphatic: ABSENT: easy bruising, lymphadenopathy Physical Exam Vital Signs: Temp Pulse Resp BP Pulse Ox 98.2 F 92 22 H 94/60 L 95 10/21/17 07:38 10/21/17 07:38 10/21/17 07:38 10/21/17 07:38 10/21/17 07:38 Intake & Output 10/20/17 10/21/17 10/22/17 06:59 06:59 06:59 Intake Total 403 Balance 403 Weight 69.6 kg General appearance: PRESENT: mild distress Eye exam: PRESENT: conjunctival injection, EOMI, PERRLA. ABSENT: nystagmus Ear exam: PRESENT: normal external ear exam Mouth exam: PRESENT: moist, neck supple Neck exam: ABSENT: lymphadenopathy, meningismus, tenderness, thyromegaly, tracheal deviation Respiratory exam: PRESENT: clear to auscultation kee, crackles. ABSENT: rhonchi Cardiovascular exam: PRESENT: +S1, +S2, systolic murmur GI/Abdominal exam: PRESENT: normal bowel sounds, soft. ABSENT: organomegaly, tenderness Extremities exam: PRESENT: +1 edema Neurological exam: PRESENT: awake, oriented to person, oriented to place. ABSENT: oriented to time Skin exam: ABSENT: cyanosis, mottled Results Laboratory Results: 10/21/17 06:51 10/21/17 06:51 10/21/17 10/21/17 10/21/17 01:43 06:51 06:51 WBC 4.5 RBC 2.74 L Hgb 8.8 L Hct 27.0 L MCV 99 H MCH 32.2 MCHC 32.7 RDW 19.8 H Plt Count 194 Sodium 141.1 Potassium 5.6 H Chloride 101 Carbon Dioxide 28 Anion Gap 12 BUN 98 H Creatinine 7.28 H Est GFR ( Amer) 7 L Est GFR (Non-Af Amer) 5 L Glucose 131 H Calcium 8.8 Urine Color YELLOW Urine Appearance CLOUDY Urine pH 5.0 Ur Specific [place] 1.018 Urine Protein 100 H Urine Glucose (UA) NEGATIVE Urine Ketones NEGATIVE Urine Blood LARGE H Urine Nitrite NEGATIVE Ur Leukocyte Esterase MODERATE H Urine WBC (Auto) 79 Urine RBC (Auto) >182 10/20/17 20:52 Troponin I 0.108 Impressions: Chest X-Ray 10/20/17 14:47 IMPRESSION: Cardiomegaly with pulmonary vascular congestion. Right pleural effusion is again identified and I cannot exclude some associated atelectasis or infiltrate in the right mid and lower lung field. Ill-defined increased density in the left upper and mid lung patel which could represent a developing infiltrate or pulmonary edema. Other findings as noted above Venous Doppler Study 10/20/17 14:58 IMPRESSION: NO EVIDENCE DVT OR SVT IN THE RIGHT LEG. Assessment & Plan - Diagnosis (1) Acute on chronic combined systolic and diastolic CHF (congestive heart failure) Plan: Undergoing dialysis currently. She should respond to the dialysis duration of 4 L. Orders discussed with the treating nurse. I did discuss compliance issues with the patient, but given her dementia and very poor short-term memory I do not think this is going to be of much help (2) ESRD (end stage renal disease) on dialysis Plan: She is undergoing dialysis currently. It is being supervised to ensure safe and smooth procedure. Vital signs are stable. Orders were discussed with the treating dialysis nurse. Will remove approximately 4 L of fluid as tolerated. Orders given for epo. (3) Hypotension Qualifiers: Hypotension type: other hypotension type Qualified Code(s): I95.89 - Other hypotension Plan: Ordered Midodrin which has not been administered. (4) Anemia in chronic kidney disease Plan: Ordered Procrit. (5) Diabetes mellitus, type 2 Qualifiers: Diabetes mellitus intermediate school teacher insulin use: with intermediate school teacher use Diabetes mellitus complication status: with kidney complications Diabetes mellitus complication detail: with chronic kidney disease Chronic kidney disease stage : on chronic dialysis Qualified Code(s): E11.22 - Type 2 diabetes mellitus with diabetic chronic kidney disease; N18.6 - End stage renal disease; Z99.2 - Dependence on renal dialysis; Z99.2 - Dependence on renal dialysis; Z99.2 - Dependence on renal dialysis; N18.6 - End stage renal disease; N18.6 - End stage renal disease; N18.6 - End stage renal disease; Z79.4 - ad terminal makeup operator (current ) use of insulin; Z79.4 - detention (current) use of insulin; Z79.4 - ad terminal makeup operator (current) use of insulin; Z79.4 - ad terminal makeup operator (current) use of insulin; Z99.2 - Dependence on renal dialysis (6) Acute hypoxemic respiratory failure Plan: Secondary to congestive heart failure. Should respond to dialysis as she is undergoing currently. (7) Atrial fibrillation Qualifiers: Atrial fibrillation type: chronic Qualified Code(s): I48.2 - Chronic atrial fibrillation Is this a current diagnosis for this admission?: Yes (8) H/O prosthetic aortic valve replacement Plan: Stable.
[2017-10-21] MEDS: METOPROLOL SUCCINATE 25 MG TAB.SR.24H PO SCH ×2 (13:00→22:18)
[2017-10-21] MEDS: FERROUS SULFATE 325 MG TABLET PO SCH ×2 (13:00→18:12)
[2017-10-21] MEDS ORDERED: WARFARIN SODIUM 5 MG TABLET PO SCH (14:35)
--- NOTE | 2017-10-21 14:39 | PDOC PROGRESS REPORT ---
Subjective Progress Note for:: 10/21/17 Subjective:: Difficulty breathing, leg swelling Reason For Visit: PNEUMONIA Physical Exam Vital Signs: Temp Pulse Resp BP Pulse Ox 98.2 F 88 16 94/60 L 89 L 10/21/17 07:38 10/21/17 08:00 10/21/17 08:00 10/21/17 07:38 10/21/17 08:00 Intake & Output 10/20/17 10/21/17 10/22/17 06:59 06:59 06:59 Intake Total 403 0 Output Total 2700 Balance 403 -2700 Weight 69.6 kg General appearance: PRESENT: no acute distress Head exam: PRESENT: atraumatic Eye exam: PRESENT: conjunctiva pink, EOMI, PERRLA. ABSENT: scleral icterus Respiratory exam: PRESENT: clear to auscultation kee. ABSENT: rales, rhonchi, wheezes Cardiovascular exam: PRESENT: irregular rhythm, +S1, +S2, systolic murmur Pulses: PRESENT: normal dorsalis pedis pul GI/Abdominal exam: PRESENT: normal bowel sounds, soft. ABSENT: distended, guarding, mass, organolmegaly, rebound, tenderness Rectal exam: PRESENT: deferred Extremities exam: PRESENT: other - 3+ edema Neurological exam: PRESENT: other - sleeping but easily arousable Results Laboratory Results: 10/21/17 06:51 10/21/17 06:51 10/21/17 10/21/17 10/21/17 01:43 06:51 06:51 WBC 4.5 RBC 2.74 L Hgb 8.8 L Hct 27.0 L MCV 99 H MCH 32.2 MCHC 32.7 RDW 19.8 H Plt Count 194 Sodium 141.1 Potassium 5.6 H Chloride 101 Carbon Dioxide 28 Anion Gap 12 BUN 98 H Creatinine 7.28 H Est GFR ( Amer) 7 L Est GFR (Non-Af Amer) 5 L Glucose 131 H Calcium 8.8 Urine Color YELLOW Urine Appearance CLOUDY Urine pH 5.0 Ur Specific [place] 1.018 Urine Protein 100 H Urine Glucose (UA) NEGATIVE Urine Ketones NEGATIVE Urine Blood LARGE H Urine Nitrite NEGATIVE Ur Leukocyte Esterase MODERATE H Urine WBC (Auto) 79 Urine RBC (Auto) >182 10/20/17 20:52 Troponin I 0.108 Impressions: Chest X-Ray 10/20/17 14:47 IMPRESSION: Cardiomegaly with pulmonary vascular congestion. Right pleural effusion is again identified and I cannot exclude some associated atelectasis or infiltrate in the right mid and lower lung field. Ill-defined increased density in the left upper and mid lung patel which could represent a developing infiltrate or pulmonary edema. Other findings as noted above Venous Doppler Study 10/20/17 14:58 IMPRESSION: NO EVIDENCE DVT OR SVT IN THE RIGHT LEG. Assessment & Plan - Diagnosis (1) Diastolic CHF Qualifiers: Heart failure chronicity: chronic Qualified Code(s): I50.32 - Chronic diastolic (congestive) heart failure Is this a current diagnosis for this admission?: Yes Plan: Secondary to ESRD. Continue dialysis as per Nephrology (2) Atrial fibrillation Qualifiers: Atrial fibrillation type: chronic Qualified Code(s): I48.2 - Chronic atrial fibrillation Is this a current diagnosis for this admission?: Yes Plan: Controlled, on Coumadin (3) End stage renal disease Is this a current diagnosis for this admission?: Yes Plan: Dialysis as per Nephrology (4) Mechanical heart valve present Is this a current diagnosis for this admission?: Yes Plan: Continue Coumadin, goal INR 3-4
[2017-10-21] MEDS: DIGOXIN 0.125 MG TABLET PO SCH (18:11)
[2017-10-21] MEDS ORDERED: WARFARIN SODIUM 3 MG TABLET PO SCH (22:00)
[2017-10-21] MEDS: ATORVASTATIN CALCIUM 20 MG TABLET PO SCH (22:17)
[2017-10-21] MEDS: METOLAZONE 5 MG TABLET PO SCH (22:18)
[2017-10-22] MEDS: LANSOPRAZOLE 30 MG TAB.RAP.DR PO SCH (05:14)
[2017-10-22 05:20] LABS: INTERNATIONAL RATION (INR) 3.56; PROTHROMBIN TIME 37.2 SEC (11.4-15.4)
[2017-10-22 05:47] LABS: ANION GAP 9 (5-19); CALCIUM 8.4 mg/dL (8.4-10.2); CARBON DIOXIDE 31 mmol/L (22-30); CHLORIDE 100 mmol/L (98-107); GLUCOSE 115 mg/dL (75-110); POTASSIUM 4.9 mmol/L (3.6-5.0); SODIUM 139.6 mmol/L (137-145)
[2017-10-22 05:59] LABS: BLOOD UREA NITROGEN 64 mg/dL (7-20)
[2017-10-22] MEDS ORDERED: EPOETIN ALFA INJ 20000 UNIT/1 ML VIAL (RENAL) IV PRN ×2 (06:25→09:47)
[2017-10-22] MEDS ORDERED: HEPARIN SOD (PORCINE) 1,000 UNIT/ML 10 ML VIAL IV PRN (06:25)
[2017-10-22] MEDS: MIDODRINE HCL 5 MG TABLET PO SCH ×4 (07:41→18:11)
[2017-10-22 11:43] LABS: ABSOLUTE EOSINOPHILS # (AUTO) 0.1 10^3/uL (0.0-0.6); ABSOLUTE LYMPHOCYTES (AUTO) 0.7 10^3/uL (0.5-4.7); ABSOLUTE MONOCYTES (AUTO) 0.6 10^3/uL (0.1-1.4); ABSOLUTE NEUT (AUTO) 2.7 10^3/uL (1.7-8.2); EOSINOPHILS % (AUTO) 1.3 % (0-6); HEMATOCRIT 21.7 % (36.0-47.0); LYMPHOCYTES % (AUTO) 16.6 % (13-45); MEAN CORPUSCULAR HEMOGLOBIN 32.1 pg (27.0-33.4); MEAN CORPUSCULAR HGB CONC 32.5 g/dL (32.0-36.0); MEAN CORPUSCULAR VOLUME 99 fl (80-97); MONOCYTES % (AUTO) 14.2 % (3-13); PLATELET COUNT 188 10^3/uL (150-450); RED CELL DISTRIBUTION WIDTH 20.2 % (11.5-14.0); SEGMENTED NEUTROPHILS % (AUTO) 66.9 % (42-78); TOTAL CELLS COUNTED % (AUTO) 100 %
[2017-10-22 11:49] LABS: HEMOGLOBIN 7.1 g/dL (12.0-15.5)
--- NOTE | 2017-10-22 13:11 | PDOC PROGRESS REPORT ---
Subjective Progress Note for:: 10/22/17 Subjective:: Difficulty breathing, leg swelling Reason For Visit: PNEUMONIA Physical Exam Vital Signs: Temp Pulse Resp BP Pulse Ox 97.8 F 79 20 98/62 L 99 10/22/17 07:14 10/22/17 10:22 10/22/17 10:22 10/22/17 07:14 10/22/17 10:22 Intake & Output 10/21/17 10/22/17 10/23/17 06:59 06:59 06:59 Intake Total 403 747 100 Output Total 2700 Balance 403 -1953 100 Weight 69.6 kg 71.3 kg General appearance: PRESENT: no acute distress Head exam: PRESENT: atraumatic, normocephalic Ear exam: PRESENT: normal external ear exam Neck exam: ABSENT: carotid bruit, JVD, lymphadenopathy, thyromegaly Respiratory exam: PRESENT: accessory muscle use Cardiovascular exam: PRESENT: irregular rhythm, +S1, +S2, systolic murmur Pulses: PRESENT: normal dorsalis pedis pul GI/Abdominal exam: PRESENT: normal bowel sounds, soft. ABSENT: distended, guarding, mass, organolmegaly, rebound, tenderness Rectal exam: PRESENT: heme (+) stool - This has always being positive reviewing 5 year record Extremities exam: PRESENT: full ROM, other - 3plus edema. ABSENT: calf tenderness, clubbing, pedal edema Neurological exam: PRESENT: alert, awake, oriented to time, oriented to situation, other - confused sometimes Skin exam: PRESENT: dry, intact, warm. ABSENT: cyanosis, rash Results Laboratory Results: 10/22/17 08:39 10/22/17 04:12 10/22/17 10/22/17 10/22/17 04:12 08:30 08:39 WBC 4.0 RBC 2.20 L Hgb 7.1 L Hct 21.7 L MCV 99 H MCH 32.1 MCHC 32.5 RDW 20.2 H Plt Count 188 Seg Neutrophils % 66.9 Lymphocytes % 16.6 Monocytes % 14.2 H Eosinophils % 1.3 Basophils % 1.0 Absolute Neutrophils 2.7 Absolute Lymphocytes 0.7 Absolute Monocytes 0.6 Absolute Eosinophils 0.1 Absolute Basophils 0.0 Sodium 139.6 Potassium 4.9 Chloride 100 Carbon Dioxide 31 H Anion Gap 9 BUN 64 H D Creatinine 4.98 H Est GFR ( Amer) 10 L Est GFR (Non-Af Amer) 8 L Glucose 115 H Calcium 8.4 Stool Occult Blood POSITIVE 10/20/17 20:52 Troponin I 0.108 Impressions: Chest X-Ray 10/20/17 14:47 IMPRESSION: Cardiomegaly with pulmonary vascular congestion. Right pleural effusion is again identified and I cannot exclude some associated atelectasis or infiltrate in the right mid and lower lung field. Ill-defined increased density in the left upper and mid lung patel which could represent a developing infiltrate or pulmonary edema. Other findings as noted above Venous Doppler Study 10/20/17 14:58 IMPRESSION: NO EVIDENCE DVT OR SVT IN THE RIGHT LEG. Assessment & Plan - Diagnosis (1) Diastolic CHF Qualifiers: Heart failure chronicity: chronic Qualified Code(s): I50.32 - Chronic diastolic (congestive) heart failure Is this a current diagnosis for this admission?: Yes Plan: Secondary to ESRD. received dialysis again today. Continue as per Nephrology (2) Atrial fibrillation Qualifiers: Atrial fibrillation type: chronic Qualified Code(s): I48.2 - Chronic atrial fibrillation Is this a current diagnosis for this admission?: Yes Plan: Controlled, on Coumadin. She also has mechanical valve replacement. Patient noted to have somewhat bloody stool today although she has self denies any blood in her stool as she is however intermittently confused. She has had no deterioration of her hemodynamic status and in fact she underwent dialysis today with no issues with her blood pressure. Myoglobin was checked I believe during dialysis and of course this may be the wrong value so another one is going to be rechecked in another hour (3) End stage renal disease Is this a current diagnosis for this admission?: Yes Plan: Dialysis as per Nephrology (4) Mechanical heart valve present Is this a current diagnosis for this admission?: Yes Plan: She would need to continue Coumadin. (5) Anemia Qualifiers: Other causes of anemia: chronic disease, kidney Is this a current diagnosis for this admission?: Yes Plan: Precipitous drop in her hemoglobin with stool guaiac. Hemoglobin is been repeated at this time and will decide if she needs transfusion. Will continue to monitor her vital signs as this has remained relatively stable. She may ultimately need a GI consultation when1 is available and if clinically warranted. - Time Time Spent with patient: 15-24 minutes Medications reviewed and adjusted accordingly: Yes Within: within 72 hours - Inpatient Certification Based on my medical assessment, after consideration of the patient's comorbidities, presenting symptoms, or acuity I expect that the services needed warrant INPATIENT care.: Yes Medical Necessity: Risk of Complication if Not Cared For in Hospital
[2017-10-22] MEDS: METOLAZONE 5 MG TABLET PO SCH ×2 (13:44→22:40)
[2017-10-22] MEDS: METOPROLOL SUCCINATE 25 MG TAB.SR.24H PO SCH (13:44)
[2017-10-22] MEDS: ESCITALOPRAM OXALATE 10 MG TABLET PO SCH (13:45)
--- NOTE | 2017-10-22 13:48 | PDOC PROGRESS REPORT ---
Subjective Progress Note for:: 10/22/17 Reason For Visit: Seen today on dialysis. She is undergoing dialysis without any issues. She still is short of breath with exertion but not at rest. She denies any complaints of chest pains, fever or chills.Labs and medications were reviewed with her. Blood pressure continues to be low in spite of introducing 5 mg Midodrin yesterday.No complaints of any focal deficits. Dialysis orders were discussed with the treating nurse. Physical Exam Vital Signs: Temp Pulse Resp BP Pulse Ox 97.8 F 79 20 98/62 L 99 10/22/17 07:14 10/22/17 10:22 10/22/17 10:22 10/22/17 07:14 10/22/17 10:22 Intake & Output 10/21/17 10/22/17 10/23/17 06:59 06:59 06:59 Intake Total 403 747 100 Output Total 2700 3800 Balance 403 -1953 -3700 Weight 69.6 kg 71.3 kg General appearance: PRESENT: no acute distress Respiratory exam: PRESENT: clear to auscultation kee, crackles. ABSENT: rhonchi Cardiovascular exam: PRESENT: +S1, +S2, systolic murmur GI/Abdominal exam: PRESENT: normal bowel sounds, soft. ABSENT: organomegaly, tenderness Extremities exam: PRESENT: +2 edema. ABSENT: calf tenderness Neurological exam: PRESENT: awake, oriented to person, oriented to place Results Laboratory Results: 10/22/17 08:39 10/22/17 04:12 10/22/17 10/22/17 10/22/17 04:12 08:30 08:39 WBC 4.0 RBC 2.20 L Hgb 7.1 L Hct 21.7 L MCV 99 H MCH 32.1 MCHC 32.5 RDW 20.2 H Plt Count 188 Seg Neutrophils % 66.9 Lymphocytes % 16.6 Monocytes % 14.2 H Eosinophils % 1.3 Basophils % 1.0 Absolute Neutrophils 2.7 Absolute Lymphocytes 0.7 Absolute Monocytes 0.6 Absolute Eosinophils 0.1 Absolute Basophils 0.0 Sodium 139.6 Potassium 4.9 Chloride 100 Carbon Dioxide 31 H Anion Gap 9 BUN 64 H D Creatinine 4.98 H Est GFR ( Amer) 10 L Est GFR (Non-Af Amer) 8 L Glucose 115 H Calcium 8.4 Stool Occult Blood POSITIVE 10/20/17 20:52 Troponin I 0.108 Impressions: Chest X-Ray 10/20/17 14:47 IMPRESSION: Cardiomegaly with pulmonary vascular congestion. Right pleural effusion is again identified and I cannot exclude some associated atelectasis or infiltrate in the right mid and lower lung field. Ill-defined increased density in the left upper and mid lung patel which could represent a developing infiltrate or pulmonary edema. Other findings as noted above Venous Doppler Study 10/20/17 14:58 IMPRESSION: NO EVIDENCE DVT OR SVT IN THE RIGHT LEG. Assessment & Plan - Diagnosis (1) Acute on chronic combined systolic and diastolic CHF (congestive heart failure) Plan: Undergoing dialysis currently. Advised her to limit her fluid intake. She should respond to the dialysis and removal of 4 L. Orders discussed with the treating nurse. I did discuss compliance issues with the patient, but given her dementia and very poor short-term memory I do not think this is going to be of much help (2) ESRD (end stage renal disease) on dialysis Plan: She is undergoing dialysis currently. It is being supervised to ensure safe and smooth procedure. Vital signs are stable but for hypotension. Orders were discussed with the treating dialysis nurse. We will increase her midodrine to 10 mg and monitor the response. She does not have any evidences to indicate cardiogenic shock or septic shock. Will remove approximately 4 L of fluid as tolerated. Orders given for epo. (3) Hypotension Qualifiers: Hypotension type: other hypotension type Qualified Code(s): I95.89 - Other hypotension Plan: .Chronic. Will increase the Midodrin to 10 mg and monitor the response. (4) Anemia in chronic kidney disease Plan: Ordered Procrit. (5) Diabetes mellitus, type 2 Qualifiers: Diabetes mellitus termite treater helper insulin use: with termite treater helper use Diabetes mellitus complication status: with kidney complications Diabetes mellitus complication detail: with chronic kidney disease Chronic kidney disease stage : on chronic dialysis Qualified Code(s): E11.22 - Type 2 diabetes mellitus with diabetic chronic kidney disease; N18.6 - End stage renal disease; Z99.2 - Dependence on renal dialysis; Z99.2 - Dependence on renal dialysis; Z99.2 - Dependence on renal dialysis; N18.6 - End stage renal disease; N18.6 - End stage renal disease; N18.6 - End stage renal disease; Z79.4 - MCFP (current ) use of insulin; Z79.4 - [facility]FP (current) use of insulin; Z79.4 - roasterman (current) use of insulin; Z79.4 - roasterman (current) use of insulin; Z99.2 - Dependence on renal dialysis Plan: Advised on tight control. (6) Acute hypoxemic respiratory failure Plan: Secondary to congestive heart failure. Should respond to dialysis as she is undergoing currently. (7) Atrial fibrillation Qualifiers: Atrial fibrillation type: chronic Qualified Code(s): I48.2 - Chronic atrial fibrillation Is this a current diagnosis for this admission?: Yes Plan: Presently rate controlled.
[2017-10-22 15:36] LABS: HEMATOCRIT 21.7 % (36.0-47.0); MEAN CORPUSCULAR HEMOGLOBIN 32.8 pg (27.0-33.4); MEAN CORPUSCULAR HGB CONC 33.3 g/dL (32.0-36.0); MEAN CORPUSCULAR VOLUME 99 fl (80-97); PLATELET COUNT 181 10^3/uL (150-450); RED BLOOD COUNT 2.21 10^6/uL (3.72-5.28); RED CELL DISTRIBUTION WIDTH 20.2 % (11.5-14.0); WHITE BLOOD COUNT 4.2 10^3/uL (4.0-10.5)
[2017-10-22 15:47] LABS: HEMOGLOBIN 7.2 g/dL (12.0-15.5)
--- NOTE | 2017-10-22 16:19 | Progress Note ---
Provider Note Provider Note: Repeat hemoglobin is 7.2 and patient has become more hypotensive so at this time the Coumadin has been held and given her end-stage renal disease status I will transfuse her with 1 unit of packed red blood cell. Because of a mechanical valve I would not reverse the INR at this time but will keep an eye on her and if clinically warranted these can be done. We will also suggest to obtain a GI consult when one is available. There appears to be no urgency about it now as patient is not actively bleeding.
[2017-10-22] MEDS ORDERED: PANTOPRAZOLE SODIUM 40 MG VIAL IV ONE (17:00)
[2017-10-22] MEDS: ATORVASTATIN CALCIUM 20 MG TABLET PO SCH (22:40)
[2017-10-23 05:20] LABS: INTERNATIONAL RATION (INR) 2.39; PROTHROMBIN TIME 27.3 SEC (11.4-15.4)
[2017-10-23 05:30] LABS: ABSOLUTE BASOPHILS # (AUTO) 0.1 10^3/uL (0.0-0.2); ABSOLUTE LYMPHOCYTES (AUTO) 0.6 10^3/uL (0.5-4.7); ABSOLUTE MONOCYTES (AUTO) 0.8 10^3/uL (0.1-1.4); ABSOLUTE NEUT (AUTO) 3.2 10^3/uL (1.7-8.2); ABSOLUTE RETICS # 0.098 10^6/uL (0.028-0.122); BASOPHILS % (AUTO) 1.3 % (0-2); HEMATOCRIT 24.3 % (36.0-47.0); HEMOGLOBIN 8.1 g/dL (12.0-15.5); LYMPHOCYTES % (AUTO) 13.5 % (13-45); MEAN CORPUSCULAR HEMOGLOBIN 31.7 pg (27.0-33.4); MEAN CORPUSCULAR HGB CONC 33.3 g/dL (32.0-36.0); MONOCYTES % (AUTO) 16.4 % (3-13); PLATELET COUNT 184 10^3/uL (150-450); RED BLOOD COUNT 2.56 10^6/uL (3.72-5.28); RED CELL DISTRIBUTION WIDTH 23.2 % (11.5-14.0); RETICULOCYTE COUNT (AUTO) 3.84 % (0.66-2.85); SEGMENTED NEUTROPHILS % (AUTO) 67.8 % (42-78); TOTAL CELLS COUNTED % (AUTO) 100 %; WHITE BLOOD COUNT 4.7 10^3/uL (4.0-10.5)
[2017-10-23 05:53] LABS: ANION GAP 9 (5-19); BLOOD UREA NITROGEN 44 mg/dL (7-20); CALCIUM 8.3 mg/dL (8.4-10.2); CARBON DIOXIDE 31 mmol/L (22-30); CHLORIDE 99 mmol/L (98-107); GLUCOSE 84 mg/dL (75-110); POTASSIUM 4.3 mmol/L (3.6-5.0); SODIUM 138.7 mmol/L (137-145)
[2017-10-23 06:01] LABS: MEAN CORPUSCULAR VOLUME 95 fl (80-97)
[2017-10-23 06:04] LABS: ANISOCYTOSIS 3+; POLYCHROMASIA SLIGHT
[2017-10-23 06:05] LABS: OVALOCYTES 1+; PLATELET COMMENT ADEQUATE; POIKILOCYTOSIS 1+; TARGET CELLS SLIGHT
[2017-10-23 06:43] LABS: FOLATE 6.77 ng/mL (>2.76)
[2017-10-23] MEDS: MIDODRINE HCL 5 MG TABLET PO SCH ×3 (07:51→18:27)
[2017-10-23] MEDS ORDERED: HEPARIN SOD (PORCINE) 1,000 UNIT/ML 10 ML VIAL IV PRN (09:18)
--- NOTE | 2017-10-23 13:32 | PDOC PROGRESS REPORT ---
Subjective Progress Note for:: 10/23/17 Reason For Visit: Patient was seen on dialysis today. She is undergoing dialysis issues. She still has some shortness of breath with exertion in the bed but denies any chest pains, fever or chills. Labs and medications were reviewed with her. Dialysis on the treating nurse. Physical Exam Vital Signs: Temp Pulse Resp BP Pulse Ox 98.1 F 91 20 95/52 L 95 10/23/17 03:41 10/23/17 12:22 10/23/17 12:22 10/23/17 03:41 10/23/17 12:22 Intake & Output 10/22/17 10/23/17 10/24/17 06:59 06:59 06:59 Intake Total 747 920 Output Total 2700 3800 5100 Balance -1953 -2880 -5100 Weight 71.3 kg 67.3 kg General appearance: PRESENT: no acute distress Respiratory exam: PRESENT: clear to auscultation kee, decreased breath sounds. ABSENT: crackles, rhonchi Cardiovascular exam: PRESENT: +S1, +S2, systolic murmur GI/Abdominal exam: PRESENT: normal bowel sounds, soft. ABSENT: organomegaly, tenderness Extremities exam: PRESENT: +2 edema Neurological exam: PRESENT: awake, oriented to person, oriented to place Results Laboratory Results: 10/23/17 04:14 10/23/17 04:14 10/22/17 10/22/17 10/23/17 15:10 16:35 04:14 WBC 4.2 RBC 2.21 L Hgb 7.2 L Hct 21.7 L MCV 99 H MCH 32.8 MCHC 33.3 RDW 20.2 H Plt Count 181 Seg Neutrophils % Lymphocytes % Monocytes % Eosinophils % Basophils % Absolute Neutrophils Absolute Lymphocytes Absolute Monocytes Absolute Eosinophils Absolute Basophils Retic Count (auto) Absolute Retic Sodium 138.7 Potassium 4.3 Chloride 99 Carbon Dioxide 31 H Anion Gap 9 BUN 44 H Creatinine 3.41 H Est GFR ( Amer) 16 L Est GFR (Non-Af Amer) 13 L Glucose 84 Calcium 8.3 L Iron 56.0 TIBC 278 % Saturation 20 Ferritin 168.00 Vitamin B12 464.0 Folate 6.77 Blood Type A NEGATIVE Antibody Screen NEGATIVE 10/23/17 04:14 WBC 4.7 RBC 2.56 L Hgb 8.1 L Hct 24.3 L MCV 95 D MCH 31.7 MCHC 33.3 RDW 23.2 H Plt Count 184 Seg Neutrophils % 67.8 Lymphocytes % 13.5 Monocytes % 16.4 H Eosinophils % 1.0 Basophils % 1.3 Absolute Neutrophils 3.2 Absolute Lymphocytes 0.6 Absolute Monocytes 0.8 Absolute Eosinophils 0.0 Absolute Basophils 0.1 Retic Count (auto) 3.84 H Absolute Retic 0.098 Sodium Potassium Chloride Carbon Dioxide Anion Gap BUN Creatinine Est GFR ( Amer) Est GFR (Non-Af Amer) Glucose Calcium Iron TIBC % Saturation Ferritin Vitamin B12 Folate Blood Type Antibody Screen 10/20/17 20:52 Troponin I 0.108 Impressions: Chest X-Ray 10/20/17 14:47 IMPRESSION: Cardiomegaly with pulmonary vascular congestion. Right pleural effusion is again identified and I cannot exclude some associated atelectasis or infiltrate in the right mid and lower lung field. Ill-defined increased density in the left upper and mid lung patel which could represent a developing infiltrate or pulmonary edema. Other findings as noted above Venous Doppler Study 10/20/17 14:58 IMPRESSION: NO EVIDENCE DVT OR SVT IN THE RIGHT LEG. Assessment & Plan - Diagnosis (1) Acute on chronic combined systolic and diastolic CHF (congestive heart failure) Plan: Undergoing dialysis currently. Advised her to limit her fluid intake. She should respond to the intense daily dialysis and removal of fluids. Orders discussed with the treating nurse. I did discuss compliance issues with the patient, but given her dementia and very poor short-term memory I do not think this is going to be of much help (2) ESRD (end stage renal disease) on dialysis Plan: She is undergoing dialysis currently. It is being supervised to ensure safe and smooth procedure. Vital signs are stable but for hypotension. Orders were discussed with the treating dialysis nurse. She is on midodrine 10 mg. Will remove approximately 4 L of fluid as tolerated. Orders given for epo. (3) Hypotension Qualifiers: Hypotension type: other hypotension type Qualified Code(s): I95.89 - Other hypotension Plan: .Chronic. On Midodrin 10 mg and monitor the response. (4) Anemia in chronic kidney disease Plan: Ordered Procrit. (5) Diabetes mellitus, type 2 Qualifiers: Diabetes mellitus half-way insulin use: with half-way use Diabetes mellitus complication status: with kidney complications Diabetes mellitus complication detail: with chronic kidney disease Chronic kidney disease stage : on chronic dialysis Qualified Code(s): E11.22 - Type 2 diabetes mellitus with diabetic chronic kidney disease; N18.6 - End stage renal disease; Z99.2 - Dependence on renal dialysis; Z99.2 - Dependence on renal dialysis; Z99.2 - Dependence on renal dialysis; N18.6 - End stage renal disease; N18.6 - End stage renal disease; N18.6 - End stage renal disease; Z79.4 - long-term (current ) use of insulin; Z79.4 - long-term (current) use of insulin; Z79.4 - long term acute care registered nurse (current) use of insulin; Z79.4 - long term acute care registered nurse (current) use of insulin; Z99.2 - Dependence on renal dialysis Plan: Advised on tight control. (6) Acute hypoxemic respiratory failure Plan: Secondary to congestive heart failure. Should respond to the intense dialysis as she is undergoing currently. (7) Atrial fibrillation Qualifiers: Atrial fibrillation type: chronic Qualified Code(s): I48.2 - Chronic atrial fibrillation Is this a current diagnosis for this admission?: Yes Plan: Presently rate controlled.
[2017-10-23] MEDS: METOLAZONE 5 MG TABLET PO SCH ×2 (14:29→21:38)
[2017-10-23] MEDS: ESCITALOPRAM OXALATE 10 MG TABLET PO SCH (14:30)
[2017-10-23] MEDS: PANTOPRAZOLE SODIUM 40 MG VIAL IV SCH (14:31)
--- NOTE | 2017-10-23 16:23 | PDOC PROGRESS REPORT ---
Subjective Progress Note for:: 10/23/17 Subjective:: Still with shortness of breath but continues to improve. Denies rectal bleeding. Patient nurse also does not report noticing rectal bleeding. No chest pain or palpitations, no fever or chills. Reason For Visit: PNEUMONIA Physical Exam Vital Signs: Temp Pulse Resp BP Pulse Ox 98.1 F 91 20 95/52 L 95 10/23/17 03:41 10/23/17 12:22 10/23/17 12:22 10/23/17 03:41 10/23/17 12:22 Intake & Output 10/22/17 10/23/17 10/24/17 06:59 06:59 06:59 Intake Total 747 920 0 Output Total 2700 3800 5100 Balance -1953 -2880 -5100 Weight 71.3 kg 67.3 kg GEN: NAD, well-developed, well-nourished CV: Irreg, mechanical heart sound LUNGS: Few basilar crackles ABDOMEN Soft, NT, +BS EXTERMITIES: 3+ pedal edema NEURO: Alert, oriented x 3, nonfocal Results Laboratory Results: 10/23/17 04:14 10/23/17 04:14 10/22/17 10/23/17 10/23/17 16:35 04:14 04:14 WBC 4.7 RBC 2.56 L Hgb 8.1 L Hct 24.3 L MCV 95 D MCH 31.7 MCHC 33.3 RDW 23.2 H Plt Count 184 Seg Neutrophils % 67.8 Lymphocytes % 13.5 Monocytes % 16.4 H Eosinophils % 1.0 Basophils % 1.3 Absolute Neutrophils 3.2 Absolute Lymphocytes 0.6 Absolute Monocytes 0.8 Absolute Eosinophils 0.0 Absolute Basophils 0.1 Retic Count (auto) 3.84 H Absolute Retic 0.098 Sodium 138.7 Potassium 4.3 Chloride 99 Carbon Dioxide 31 H Anion Gap 9 BUN 44 H Creatinine 3.41 H Est GFR ( Amer) 16 L Est GFR (Non-Af Amer) 13 L Glucose 84 Calcium 8.3 L Iron 56.0 TIBC 278 % Saturation 20 Ferritin 168.00 Vitamin B12 464.0 Folate 6.77 Blood Type A NEGATIVE Antibody Screen NEGATIVE 10/20/17 20:52 Troponin I 0.108 Impressions: Chest X-Ray 10/20/17 14:47 IMPRESSION: Cardiomegaly with pulmonary vascular congestion. Right pleural effusion is again identified and I cannot exclude some associated atelectasis or infiltrate in the right mid and lower lung field. Ill-defined increased density in the left upper and mid lung patel which could represent a developing infiltrate or pulmonary edema. Other findings as noted above Venous Doppler Study 10/20/17 14:58 IMPRESSION: NO EVIDENCE DVT OR SVT IN THE RIGHT LEG. Assessment & Plan - Diagnosis (1) Diastolic CHF Qualifiers: Heart failure chronicity: chronic Qualified Code(s): I50.32 - Chronic diastolic (congestive) heart failure Is this a current diagnosis for this admission?: Yes Plan: Echo from 10/08/17 revealing EF normal, grade 3/4 diastolic dysfunction Undergoing dialysis for fluid removal. Had 5 L removed today. Repeat dialysis tomorrow. (2) End stage renal disease Is this a current diagnosis for this admission?: Yes Plan: Hemodialysis by nephrology to help with fluid removal. (4) Diabetes mellitus, type 2 Qualifiers: Diabetes mellitus fci insulin use: with terminal worker use Diabetes mellitus complication status: with kidney complications Diabetes mellitus complication detail: with chronic kidney disease Chronic kidney disease stage : on chronic dialysis Qualified Code(s): E11.22 - Type 2 diabetes mellitus with diabetic chronic kidney disease; N18.6 - End stage renal disease; Z99.2 - Dependence on renal dialysis; Z99.2 - Dependence on renal dialysis; Z99.2 - Dependence on renal dialysis; N18.6 - End stage renal disease; N18.6 - End stage renal disease; N18.6 - End stage renal disease; Z79.4 - termite exterminator (current ) use of insulin; Z79.4 - termite exterminator (current) use of insulin; Z79.4 - [facility] (current) use of insulin; Z79.4 - termite exterminator (current) use of insulin; Z99.2 - Dependence on renal dialysis Plan: Continue management (5) Hypotension Qualifiers: Hypotension type: other hypotension type Qualified Code(s): I95.89 - Other hypotension Plan: This is limiting hemodialysis. Continue Midrin as needed. (6) Mechanical heart valve present Is this a current diagnosis for this admission?: Yes Plan: Patient apparently had rectal bleeding on Coumadin currently on hold. Normal rectal bleeding. Patient high risk for thrombosis without anticoagulation, given mechanical heart valve. INR today is 2.39. Will continue to observe patient and consider starting heparin in a.m. if no recurrent rectal bleeding. Follow-up CBC in a.m.
[2017-10-23] MEDS: DIGOXIN 0.125 MG TABLET PO SCH (18:25)
[2017-10-23 19:40] LABS: ABSOLUTE EOSINOPHILS # (AUTO) 0.1 10^3/uL (0.0-0.6); ABSOLUTE LYMPHOCYTES (AUTO) 0.5 10^3/uL (0.5-4.7); ABSOLUTE MONOCYTES (AUTO) 0.7 10^3/uL (0.1-1.4); ABSOLUTE NEUT (AUTO) 3.9 10^3/uL (1.7-8.2); BASOPHILS % (AUTO) 0.8 % (0-2); EOSINOPHILS % (AUTO) 1.1 % (0-6); HEMATOCRIT 24.7 % (36.0-47.0); HEMOGLOBIN 8.2 g/dL (12.0-15.5); LYMPHOCYTES % (AUTO) 9.8 % (13-45); MEAN CORPUSCULAR HEMOGLOBIN 31.8 pg (27.0-33.4); MEAN CORPUSCULAR HGB CONC 33.3 g/dL (32.0-36.0); MEAN CORPUSCULAR VOLUME 96 fl (80-97); MONOCYTES % (AUTO) 13.5 % (3-13); PLATELET COUNT 212 10^3/uL (150-450); RED BLOOD COUNT 2.58 10^6/uL (3.72-5.28); RED CELL DISTRIBUTION WIDTH 23.9 % (11.5-14.0); SEGMENTED NEUTROPHILS % (AUTO) 74.8 % (42-78); TOTAL CELLS COUNTED % (AUTO) 100 %; WHITE BLOOD COUNT 5.2 10^3/uL (4.0-10.5)
[2017-10-23] MEDS: ATORVASTATIN CALCIUM 20 MG TABLET PO SCH (21:38)
[2017-10-24 05:56] LABS: INTERNATIONAL RATION (INR) 1.67; PROTHROMBIN TIME 20.7 SEC (11.4-15.4)
[2017-10-24 05:57] LABS: ABSOLUTE BASOPHILS # (AUTO) 0.1 10^3/uL (0.0-0.2); ABSOLUTE EOSINOPHILS # (AUTO) 0.1 10^3/uL (0.0-0.6); ABSOLUTE LYMPHOCYTES (AUTO) 0.6 10^3/uL (0.5-4.7); ABSOLUTE MONOCYTES (AUTO) 0.8 10^3/uL (0.1-1.4); ABSOLUTE NEUT (AUTO) 3.2 10^3/uL (1.7-8.2); BASOPHILS % (AUTO) 1.2 % (0-2); EOSINOPHILS % (AUTO) 1.3 % (0-6); HEMATOCRIT 24.8 % (36.0-47.0); HEMOGLOBIN 8.2 g/dL (12.0-15.5); MEAN CORPUSCULAR HEMOGLOBIN 31.7 pg (27.0-33.4); MEAN CORPUSCULAR HGB CONC 32.9 g/dL (32.0-36.0); MEAN CORPUSCULAR VOLUME 96 fl (80-97); MONOCYTES % (AUTO) 16.7 % (3-13); PLATELET COUNT 209 10^3/uL (150-450); RED BLOOD COUNT 2.58 10^6/uL (3.72-5.28); RED CELL DISTRIBUTION WIDTH 24.2 % (11.5-14.0); SEGMENTED NEUTROPHILS % (AUTO) 67.8 % (42-78); TOTAL CELLS COUNTED % (AUTO) 100 %; WHITE BLOOD COUNT 4.7 10^3/uL (4.0-10.5)
[2017-10-24 06:00] LABS: ANION GAP 10 (5-19); BLOOD UREA NITROGEN 54 mg/dL (7-20); CALCIUM 8.4 mg/dL (8.4-10.2); CARBON DIOXIDE 30 mmol/L (22-30); CHLORIDE 98 mmol/L (98-107); GLUCOSE 119 mg/dL (75-110); POTASSIUM 4.9 mmol/L (3.6-5.0)
[2017-10-24 06:16] LABS: ANISOCYTOSIS 3+; OVALOCYTES 1+; PLATELET COMMENT ADEQUATE; POIKILOCYTOSIS 1+; POLYCHROMASIA 1+; TARGET CELLS SLIGHT
[2017-10-24] MEDS: MIDODRINE HCL 5 MG TABLET PO SCH ×3 (07:54→19:29)
[2017-10-24] MEDS ORDERED: HEPARIN SOD (PORCINE) 1,000 UNIT/ML 10 ML VIAL IV PRN (11:00)
[2017-10-24] MEDS: EPOETIN ALFA INJ 20000 UNIT/1 ML VIAL (RENAL) IV PRN (11:40)
--- NOTE | 2017-10-24 11:52 | PDOC PROGRESS REPORT ---
Subjective Progress Note for:: 10/24/17 Reason For Visit: Seen on HD today. Undergoing dialysis without any issues.Does not know which hospital she is in and asking me if this is [facility]. She denies any chest pains, dyspnea. Labs and meds were reviewed . She has had good UF on daily intense dialysis over the last 4 days and in the process removed approx 20L of fluid off her. Physical Exam Vital Signs: Temp Pulse Resp BP Pulse Ox 98.5 F 87 20 102/75 100 10/24/17 07:18 10/24/17 07:18 10/24/17 07:18 10/24/17 07:18 10/24/17 07:18 Intake & Output 10/23/17 10/24/17 10/25/17 06:59 06:59 06:59 Intake Total 920 325 Output Total 3800 5100 Balance -2880 -4791 Weight 67.3 kg 68.3 kg General appearance: PRESENT: no acute distress Respiratory exam: PRESENT: clear to auscultation kee. ABSENT: crackles, rhonchi Cardiovascular exam: PRESENT: +S1, +S2, systolic murmur GI/Abdominal exam: PRESENT: normal bowel sounds, soft. ABSENT: organomegaly, tenderness Extremities exam: PRESENT: +1 edema Neurological exam: PRESENT: awake. ABSENT: oriented to person, oriented to place, oriented to time Results Laboratory Results: 10/24/17 04:30 10/24/17 04:30 10/23/17 10/24/17 10/24/17 19:29 04:30 04:30 WBC 5.2 4.7 RBC 2.58 L 2.58 L Hgb 8.2 L 8.2 L Hct 24.7 L 24.8 L MCV 96 96 MCH 31.8 31.7 MCHC 33.3 32.9 RDW 23.9 H 24.2 H Plt Count 212 209 Seg Neutrophils % 74.8 67.8 Lymphocytes % 9.8 L 13.0 Monocytes % 13.5 H 16.7 H Eosinophils % 1.1 1.3 Basophils % 0.8 1.2 Absolute Neutrophils 3.9 3.2 Absolute Lymphocytes 0.5 0.6 Absolute Monocytes 0.7 0.8 Absolute Eosinophils 0.1 0.1 Absolute Basophils 0.0 0.1 Sodium 138.0 Potassium 4.9 Chloride 98 Carbon Dioxide 30 Anion Gap 10 BUN 54 H Creatinine 4.15 H Est GFR ( Amer) 13 L Est GFR (Non-Af Amer) 10 L Glucose 119 H Calcium 8.4 10/20/17 20:52 Troponin I 0.108 Impressions: Chest X-Ray 10/20/17 14:47 IMPRESSION: Cardiomegaly with pulmonary vascular congestion. Right pleural effusion is again identified and I cannot exclude some associated atelectasis or infiltrate in the right mid and lower lung field. Ill-defined increased density in the left upper and mid lung patel which could represent a developing infiltrate or pulmonary edema. Other findings as noted above Venous Doppler Study 10/20/17 14:58 IMPRESSION: NO EVIDENCE DVT OR SVT IN THE RIGHT LEG. Assessment & Plan - Diagnosis (1) Acute on chronic combined systolic and diastolic CHF (congestive heart failure) Is this a current diagnosis for this admission?: Yes Plan: Undergoing dialysis currently. Advised her to limit her fluid intake. She has responded to the intense daily dialysis and removal of fluids. Orders discussed with the treating nurse. I did discuss compliance issues with the patient, but given her dementia and very poor short-term memory I do not think this is going to be of much help (2) ESRD (end stage renal disease) on dialysis Plan: She is undergoing dialysis currently. It is being supervised to ensure safe and smooth procedure. Vital signs are stable but for hypotension. Orders were discussed with the treating dialysis nurse. She is on midodrine 10 mg. Will remove approximately 5 L of fluid as tolerated. Orders given for epo. (3) Hypotension Qualifiers: Hypotension type: other hypotension type Qualified Code(s): I95.89 - Other hypotension Plan: .Chronic. On Midodrin 10 mg and monitor the response. (4) Anemia in chronic kidney disease Plan: Ordered Procrit. (5) Diabetes mellitus, type 2 Qualifiers: Diabetes mellitus house parent insulin use: with house parent use Diabetes mellitus complication status: with kidney complications Diabetes mellitus complication detail: with chronic kidney disease Chronic kidney disease stage : on chronic dialysis Qualified Code(s): E11.22 - Type 2 diabetes mellitus with diabetic chronic kidney disease; N18.6 - End stage renal disease; Z99.2 - Dependence on renal dialysis; Z99.2 - Dependence on renal dialysis; Z99.2 - Dependence on renal dialysis; N18.6 - End stage renal disease; N18.6 - End stage renal disease; N18.6 - End stage renal disease; Z79.4 - shuttle operator (current ) use of insulin; Z79.4 - shuttle operator (current) use of insulin; Z79.4 - shuttle operator (current) use of insulin; Z79.4 - [facility] (current) use of insulin; Z99.2 - Dependence on renal dialysis Plan: Advised on tight control. (7) Atrial fibrillation Qualifiers: Atrial fibrillation type: chronic Qualified Code(s): I48.2 - Chronic atrial fibrillation Is this a current diagnosis for this admission?: Yes Plan: Presently rate controlled.
[2017-10-24] MEDS: ACETAMINOPHEN 325 MG TABLET PO PRN (13:27)
[2017-10-24] MEDS: ESCITALOPRAM OXALATE 10 MG TABLET PO SCH (13:29)
[2017-10-24] MEDS: PANTOPRAZOLE SODIUM 40 MG VIAL IV SCH (13:29)
[2017-10-24] MEDS: METOLAZONE 5 MG TABLET PO SCH ×2 (13:30→21:08)
--- NOTE | 2017-10-24 16:19 | PDOC PROGRESS REPORT ---
Subjective Progress Note for:: 10/24/17 Subjective:: Shortness of breath but continues to improve with daily dialysis. Status post another 5.3 L of fluid removed at hemodialysis today. Denies rectal bleeding, but nurse reports there was some blood clot in a.m. patient's comode earlier. Denies abdominal pain or cramps, no lightheadedness. No chest pain or palpitations, no fever or chills. Reason For Visit: PNEUMONIA Physical Exam Vital Signs: Temp Pulse Resp BP Pulse Ox 98.3 F 99 18 109/50 L 98 10/24/17 12:59 10/24/17 12:59 10/24/17 12:59 10/24/17 12:59 10/24/17 12:59 Intake & Output 10/23/17 10/24/17 10/25/17 06:59 06:59 06:59 Intake Total 920 325 300 Output Total 3800 5100 Balance -2880 -4775 300 Weight 67.3 kg 68.3 kg GEN: NAD, well-developed, well-nourished CV: Irreg, mechanical heart sound LUNGS: Few basilar crackles ABDOMEN Soft, NT, +BS EXTERMITIES: 3+ pedal edema NEURO: Alert, oriented x 3, nonfocal Results Laboratory Results: 10/24/17 04:30 10/24/17 04:30 10/23/17 10/24/17 10/24/17 19:29 04:30 04:30 WBC 5.2 4.7 RBC 2.58 L 2.58 L Hgb 8.2 L 8.2 L Hct 24.7 L 24.8 L MCV 96 96 MCH 31.8 31.7 MCHC 33.3 32.9 RDW 23.9 H 24.2 H Plt Count 212 209 Seg Neutrophils % 74.8 67.8 Lymphocytes % 9.8 L 13.0 Monocytes % 13.5 H 16.7 H Eosinophils % 1.1 1.3 Basophils % 0.8 1.2 Absolute Neutrophils 3.9 3.2 Absolute Lymphocytes 0.5 0.6 Absolute Monocytes 0.7 0.8 Absolute Eosinophils 0.1 0.1 Absolute Basophils 0.0 0.1 Sodium 138.0 Potassium 4.9 Chloride 98 Carbon Dioxide 30 Anion Gap 10 BUN 54 H Creatinine 4.15 H Est GFR ( Amer) 13 L Est GFR (Non-Af Amer) 10 L Glucose 119 H Calcium 8.4 10/20/17 20:52 Troponin I 0.108 Impressions: Chest X-Ray 10/20/17 14:47 IMPRESSION: Cardiomegaly with pulmonary vascular congestion. Right pleural effusion is again identified and I cannot exclude some associated atelectasis or infiltrate in the right mid and lower lung field. Ill-defined increased density in the left upper and mid lung patel which could represent a developing infiltrate or pulmonary edema. Other findings as noted above Venous Doppler Study 10/20/17 14:58 IMPRESSION: NO EVIDENCE DVT OR SVT IN THE RIGHT LEG. Assessment & Plan - Diagnosis (1) Diastolic CHF Qualifiers: Heart failure chronicity: chronic Qualified Code(s): I50.32 - Chronic diastolic (congestive) heart failure Is this a current diagnosis for this admission?: Yes Plan: Echo from 10/08/17 revealing EF normal, grade 3/4 diastolic dysfunction Undergoing dialysis for fluid removal. Had another 5.3 L removed today. Repeat dialysis after the weekend. (2) End stage renal disease Is this a current diagnosis for this admission?: Yes Plan: Hemodialysis per nephrology to help with fluid removal. (3) Anemia in chronic kidney disease Qualifiers: Chronic kidney disease stage: on chronic dialysis Qualified Code(s): N18.6 - End stage renal disease; D63.1 - Anemia in chronic kidney disease; D63.1 - Anemia in chronic kidney disease; Z99.2 - Dependence on renal dialysis; Z99.2 - Dependence on renal dialysis; Z99.2 - Dependence on renal dialysis; Z99.2 - Dependence on renal dialysis Is this a current diagnosis for this admission?: Yes Plan: Also possible superimposed acute blood loss anemia from rectal bleeding. (4) Diabetes mellitus, type 2 Qualifiers: Diabetes mellitus senior living insulin use: with senior living use Diabetes mellitus complication status: with kidney complications Diabetes mellitus complication detail: with chronic kidney disease Chronic kidney disease stage : on chronic dialysis Qualified Code(s): E11.22 - Type 2 diabetes mellitus with diabetic chronic kidney disease; N18.6 - End stage renal disease; Z99.2 - Dependence on renal dialysis; Z99.2 - Dependence on renal dialysis; Z99.2 - Dependence on renal dialysis; N18.6 - End stage renal disease; N18.6 - End stage renal disease; N18.6 - End stage renal disease; Z79.4 - residential (current ) use of insulin; Z79.4 - exterminator termite (current) use of insulin; Z79.4 - exterminator termite (current) use of insulin; Z79.4 - residential (current) use of insulin; Z99.2 - Dependence on renal dialysis Plan: Continue management (5) Hypotension Qualifiers: Hypotension type: other hypotension type Qualified Code(s): I95.89 - Other hypotension Plan: This is limiting hemodialysis. Continue Midrin as needed. (6) Mechanical heart valve present Is this a current diagnosis for this admission?: Yes Plan: Patient apparently had rectal bleeding and Coumadin currently on hold. Possible continued rectal bleeding. Patient high risk for thrombosis without anticoagulation, given mechanical heart valve. INR today is 1.67 today and H&H stable. Patient reports h/o colonoscopy "a long time ago." Will continue to observe patient and consider starting heparin in a.m. if no recurrent rectal bleeding. For now we will obtain an air-contrast barium enema to rule or large lesion and to evaluate for possible diverticulosis, as no GI outdoor education teacher, and patient does not wish to be transferred to a different hospital "just yet." Will readdressed possible transferring patient to a different facility if recurrent rectal bleeding, decrease in hemoglobin or large/suspicious lesion on barium enema. - Time Time Spent with patient: 35 or more minutes
--- NOTE | 2017-10-24 18:47 | EKG REPORT ---
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
[2017-10-24] MEDS: LORAZEPAM 1 MG TABLET PO PRN (21:09)
[2017-10-24] MEDS: ATORVASTATIN CALCIUM 20 MG TABLET PO SCH (21:09)
[2017-10-25 05:16] LABS: INTERNATIONAL RATION (INR) 1.28; PROTHROMBIN TIME 16.8 SEC (11.4-15.4)
[2017-10-25 05:17] LABS: ABSOLUTE BASOPHILS # (AUTO) 0.1 10^3/uL (0.0-0.2); ABSOLUTE EOSINOPHILS # (AUTO) 0.1 10^3/uL (0.0-0.6); ABSOLUTE LYMPHOCYTES (AUTO) 0.6 10^3/uL (0.5-4.7); ABSOLUTE MONOCYTES (AUTO) 0.8 10^3/uL (0.1-1.4); ABSOLUTE NEUT (AUTO) 3.2 10^3/uL (1.7-8.2); BASOPHILS % (AUTO) 1.1 % (0-2); EOSINOPHILS % (AUTO) 1.3 % (0-6); HEMATOCRIT 26.7 % (36.0-47.0); HEMOGLOBIN 8.6 g/dL (12.0-15.5); LYMPHOCYTES % (AUTO) 12.1 % (13-45); MEAN CORPUSCULAR HEMOGLOBIN 31.6 pg (27.0-33.4); MEAN CORPUSCULAR HGB CONC 32.3 g/dL (32.0-36.0); MEAN CORPUSCULAR VOLUME 98 fl (80-97); MONOCYTES % (AUTO) 16.9 % (3-13); PLATELET COUNT 251 10^3/uL (150-450); RED BLOOD COUNT 2.73 10^6/uL (3.72-5.28); RED CELL DISTRIBUTION WIDTH 24.8 % (11.5-14.0); SEGMENTED NEUTROPHILS % (AUTO) 68.6 % (42-78); TOTAL CELLS COUNTED % (AUTO) 100 %; WHITE BLOOD COUNT 4.7 10^3/uL (4.0-10.5)
[2017-10-25 05:44] LABS: ANISOCYTOSIS 3+; OVALOCYTES SLIGHT; PLATELET COMMENT ADEQUATE; POIKILOCYTOSIS 1+; POLYCHROMASIA SLIGHT; TARGET CELLS 1+; TEAR DROP CELLS SLIGHT
[2017-10-25 05:57] LABS: ANION GAP 11 (5-19); CALCIUM 8.8 mg/dL (8.4-10.2); CARBON DIOXIDE 32 mmol/L (22-30); CHLORIDE 97 mmol/L (98-107); GLUCOSE 97 mg/dL (75-110); POTASSIUM 4.6 mmol/L (3.6-5.0); SODIUM 139.5 mmol/L (137-145)
[2017-10-25 06:15] LABS: BLOOD UREA NITROGEN 33 mg/dL (7-20)
[2017-10-25] MEDS: MIDODRINE HCL 5 MG TABLET PO SCH ×3 (09:37→17:51)
[2017-10-25] MEDS: METOLAZONE 5 MG TABLET PO SCH ×2 (09:37→22:29)
[2017-10-25] MEDS: PANTOPRAZOLE SODIUM 40 MG VIAL IV SCH (09:38)
[2017-10-25] MEDS: ESCITALOPRAM OXALATE 10 MG TABLET PO SCH (09:38)
[2017-10-25] MEDS ORDERED: PEG 3350/NA SULF,BICARB,CL/KCL 4000 ML PO ONE (14:30)
--- NOTE | 2017-10-25 15:27 | PDOC PROGRESS REPORT ---
Subjective Progress Note for:: 10/25/17 Subjective:: Shortness of breath bimproved with back to back dialysis x 3 days removing about 5 liters daily. Denies news rectal bleeding. Denies abdominal pain or cramps, no lightheadedness. No chest pain or palpitations, no fever or chills. Reason For Visit: PNEUMONIA Physical Exam Vital Signs: Temp Pulse Resp BP Pulse Ox 98.5 F 57 L 24 H 99/42 L 97 10/25/17 12:00 10/25/17 12:00 10/25/17 12:00 10/25/17 12:00 10/25/17 12:00 Intake & Output 10/24/17 10/25/17 10/26/17 06:59 06:59 06:59 Intake Total 325 1118 355 Output Total 5100 5300 0 Balance -8773 -4183 355 Weight 68.3 kg 62.5 kg GEN: NAD, well-developed, well-nourished CV: Irreg, mechanical heart sound LUNGS: Few basilar crackles ABDOMEN Soft, NT, +BS EXTERMITIES: 1-2+ pedal edema NEURO: Alert, oriented x 3, nonfocal Results Laboratory Results: 10/25/17 04:14 10/25/17 04:14 10/23/17 10/25/17 10/25/17 04:14 04:14 04:14 WBC 4.7 RBC 2.73 L Hgb 8.6 L Hct 26.7 L MCV 98 H MCH 31.6 MCHC 32.3 RDW 24.8 H Plt Count 251 Seg Neutrophils % 68.6 Lymphocytes % 12.1 L Monocytes % 16.9 H Eosinophils % 1.3 Basophils % 1.1 Absolute Neutrophils 3.2 Absolute Lymphocytes 0.6 Absolute Monocytes 0.8 Absolute Eosinophils 0.1 Absolute Basophils 0.1 Sodium 139.5 Potassium 4.6 Chloride 97 L Carbon Dioxide 32 H Anion Gap 11 BUN 33 H D Creatinine 3.16 H Est GFR ( Amer) 17 L Est GFR (Non-Af Amer) 14 L Glucose 97 Calcium 8.8 Transferrin 178 L Stool Occult Blood 10/25/17 05:03 WBC RBC Hgb Hct MCV MCH MCHC RDW Plt Count Seg Neutrophils % Lymphocytes % Monocytes % Eosinophils % Basophils % Absolute Neutrophils Absolute Lymphocytes Absolute Monocytes Absolute Eosinophils Absolute Basophils Sodium Potassium Chloride Carbon Dioxide Anion Gap BUN Creatinine Est GFR ( Amer) Est GFR (Non-Af Amer) Glucose Calcium Transferrin Stool Occult Blood POSITIVE 10/20/17 20:52 Troponin I 0.108 Impressions: Chest X-Ray 10/20/17 14:47 IMPRESSION: Cardiomegaly with pulmonary vascular congestion. Right pleural effusion is again identified and I cannot exclude some associated atelectasis or infiltrate in the right mid and lower lung field. Ill-defined increased density in the left upper and mid lung patel which could represent a developing infiltrate or pulmonary edema. Other findings as noted above Venous Doppler Study 10/20/17 14:58 IMPRESSION: NO EVIDENCE DVT OR SVT IN THE RIGHT LEG. Assessment & Plan - Plan Summary Plan Summary: (1) Diastolic CHF Qualifiers: Heart failure chronicity: chronic Qualified Code(s): I50.32 - Chronic diastolic (congestive) heart failure Is this a current diagnosis for this admission?: Yes Plan: Echo from 10/08/17 revealed EF normal, grade 3/4 diastolic dysfunction Had HD back to back x 3 days. Repeat dialysis after the weekend. (2) End stage renal disease Is this a current diagnosis for this admission?: Yes Plan: Hemodialysis per nephrology to help with fluid removal. (3) Anemia in chronic kidney disease Qualifiers: Chronic kidney disease stage: on chronic dialysis Qualified Code(s): N18.6 - End stage renal disease; D63.1 - Anemia in chronic kidney disease; D63.1 - Anemia in chronic kidney disease; Z99.2 - Dependence on renal dialysis; Z99.2 - Dependence on renal dialysis; Z99.2 - Dependence on renal dialysis; Z99.2 - Dependence on renal dialysis Is this a current diagnosis for this admission?: Yes Plan: Also possible superimposed acute blood loss anemia from rectal bleeding. H&H has remained stable. Continue to trend. (4) Diabetes mellitus, type 2 Qualifiers: Diabetes mellitus tank terminal gauger insulin use: with skilled nursing use Diabetes mellitus complication status: with kidney complications Diabetes mellitus complication detail: with chronic kidney disease Chronic kidney disease stage : on chronic dialysis Qualified Code(s): E11.22 - Type 2 diabetes mellitus with diabetic chronic kidney disease; N18.6 - End stage renal disease; Z99.2 - Dependence on renal dialysis; Z99.2 - Dependence on renal dialysis; Z99.2 - Dependence on renal dialysis; N18.6 - End stage renal disease; N18.6 - End stage renal disease; N18.6 - End stage renal disease; Z79.4 - superintendent terminal (current ) use of insulin; Z79.4 - jail (current) use of insulin; Z79.4 - jail (current) use of insulin; Z79.4 - jail (current) use of insulin; Z99.2 - Dependence on renal dialysis Plan: Continue management (5) Hypotension Qualifiers: Hypotension type: other hypotension type Qualified Code(s): I95.89 - Other hypotension Plan: This is limiting hemodialysis. Continue Midodrine as needed. (6) Mechanical heart valve present Is this a current diagnosis for this admission?: Yes Plan: Patient apparently had rectal bleeding and Coumadin currently on hold. No more rectal bleeding at this time. Patient high risk for thrombosis without anticoagulation, given mechanical heart valve. INR today down to 1.28 today and H&H stable to improved. Patient reports h/o colonoscopy with Dr. Putnam. -Will institute a trial of IV heparin. AC Barium enema pending to evaluate for large polyp vs mass vs diverticulosis. Also, Dr. Putnam not in [facility] and no GI linen controller. Consider stopping heparin if recorrent bleeding or fall in hemoglobin with heparin versus considering transfering patient to a different facility.
[2017-10-25] MEDS: DIGOXIN 0.125 MG TABLET PO SCH (17:51)
[2017-10-25] MEDS: HEPARIN SOD (PORCINE) 1,000 UNIT/ML 10 ML VIAL IV PRN (18:13)
[2017-10-25] MEDS: HEPARIN SODIUM,PORCINE/D5W 25,000 UNIT/250 ML RTUINJ IV PRN (18:14)
[2017-10-25] MEDS: ATORVASTATIN CALCIUM 20 MG TABLET PO SCH (22:29)
[2017-10-26] MEDS: HEPARIN SOD (PORCINE) 1,000 UNIT/ML 10 ML VIAL IV PRN (03:10)
[2017-10-26 07:31] LABS: HEMATOCRIT 25.7 % (36.0-47.0); HEMOGLOBIN 8.7 g/dL (12.0-15.5); MEAN CORPUSCULAR HEMOGLOBIN 32.6 pg (27.0-33.4); MEAN CORPUSCULAR HGB CONC 33.7 g/dL (32.0-36.0); MEAN CORPUSCULAR VOLUME 97 fl (80-97); PLATELET COUNT 269 10^3/uL (150-450); RED BLOOD COUNT 2.66 10^6/uL (3.72-5.28); RED CELL DISTRIBUTION WIDTH 24.9 % (11.5-14.0); WHITE BLOOD COUNT 4.3 10^3/uL (4.0-10.5)
[2017-10-26 08:17] LABS: ABSOLUTE LYMPHOCYTES# (MANUAL) 0.8 10^3/uL (0.5-4.7); ABSOLUTE MONOCYTES # (MANUAL) 0.6 10^3/uL (0.1-1.4); ABSOLUTE NEUTROPHILS# (MANUAL) 2.9 10^3/uL (1.7-8.2); ANION GAP 12 (5-19); BASOPHILS % (MANUAL) 1 % (0-2); BLOOD UREA NITROGEN 46 mg/dL (7-20); CALCIUM 9.1 mg/dL (8.4-10.2); CARBON DIOXIDE 31 mmol/L (22-30); CHLORIDE 93 mmol/L (98-107); EOSINOPHILS % (MANUAL) 0 % (0-6); GLUCOSE 83 mg/dL (75-110); LYMPHOCYTES % (MANUAL) 18 % (13-45); MONOCYTES % (MANUAL) 13 % (3-13); NUCLEATED RED BLOOD CELLS 1 /100 WBC (0); POTASSIUM 4.8 mmol/L (3.6-5.0); SEGMENTED NEUTROPHILS % (MAN) 68 % (42-78); SODIUM 135.6 mmol/L (137-145); TOTAL CELLS COUNTED 100
[2017-10-26 08:19] LABS: ANISOCYTOSIS 3+; OVALOCYTES SLIGHT; PLATELET COMMENT ADEQUATE; POIKILOCYTOSIS 2+; POLYCHROMASIA SLIGHT; SCHISTOCYTES SLIGHT; TARGET CELLS 1+
--- NOTE | 2017-10-26 09:20 | RADIOLOGY REPORT (SQ) ---
EXAM DESCRIPTION: CHEST PA/LAT COMPLETED DATE/TIME: 10/26/2017 9:02 am REASON FOR STUDY: CHF, possible PNA COMPARISON: 07/11/2016 EXAM PARAMETERS: NUMBER OF VIEWS: two views TECHNIQUE: Digital Frontal and Lateral radiographic views of the chest acquired. RADIATION DOSE: NA LIMITATIONS: none FINDINGS: LUNGS AND PLEURA: Felipe B-lines. Perihilar haziness. No pneumothorax. MEDIASTINUM AND HILAR STRUCTURES: No masses or contour abnormalities. HEART AND VASCULAR STRUCTURES: Heart enlarged. Vascular congestion. Aortic valve replacement. BONES: No acute findings. HARDWARE: Dual lumen venous access catheter in expected location. OTHER: No other significant finding. IMPRESSION: Interstitial pulmonary edema. TECHNICAL DOCUMENTATION: JOB ID: [id number] [employer]- All Rights Reserved Reading location - IP/workstation name: [email or web address]
--- NOTE | 2017-10-26 09:21 | RADIOLOGY REPORT (SQ) ---
EXAM DESCRIPTION: KUB/ABDOMEN (SINGLE VIEW) COMPLETED DATE/TIME: 10/26/2017 9:02 am REASON FOR STUDY: PT PREP FOR BE COMPARISON: None. NUMBER OF VIEWS: One view. TECHNIQUE: Supine radiographic image of the abdomen acquired. LIMITATIONS: None. FINDINGS: BOWEL GAS PATTERN: Normal bowel gas pattern. No dilated loops. CALCIFICATIONS: No suspicious calcifications. SOFT TISSUES: No gross mass or suggestion of organomegaly. HARDWARE: None in the abdomen. BONES: Degenerative changes of the hips. OTHER: No other significant finding. IMPRESSION: No residual fecal material. TECHNICAL DOCUMENTATION: JOB ID: [id number] [employer]- All Rights Reserved Reading location - IP/workstation name: [email or web address]
--- NOTE | 2017-10-26 13:31 | PDOC PROGRESS REPORT ---
Subjective Progress Note for:: 10/26/17 Subjective:: The patient is a 77-year-old -[place] female who presented to the emergency room with increased leg swelling and shortness of breath. Her past medical history significant for end-stage renal disease on hemodialysis. She also has a mechanical aortic valve, atrial fibrillation and known diastolic congestive heart failure. She was admitted to the hospital and followed closely by nephrology. They have been dialyzing her to balance her manage her fluid balance. Overall she is improved. Unfortunately her hospitalizations been complicated by the development of rectal bleeding. Her Coumadin has been held. Coumadin was initially held. However her INR as of yesterday had drifted down to 1.28 and her hemoglobin had remained stable and she was placed back on a heparin drip. This morning she is scheduled to have a barium enema to evaluate for a large polyp versus mass versus diverticulosis. The patient follows with Dr. Putnam who is not mid level practitioner over the weekend. Today she states she is feeling fairly well. She states she is still short of breath but it is greatly improved since she came to the hospital. She has had no fever or chills. No chest pain or heart palpitations. No nausea vomiting or diarrhea. She has had no further rectal bleeding. She has not had any abdominal pain. Physical Exam Vital Signs: Temp Pulse Resp BP Pulse Ox 98.5 F 96 20 97/60 L 96 10/26/17 10:34 10/26/17 10:34 10/26/17 10:34 10/26/17 10:34 10/26/17 10:44 Intake & Output 10/25/17 10/26/17 10/27/17 06:59 06:59 06:59 Intake Total 1118 2737 Output Total 5300 0 Balance -4182 2737 Weight 62.5 kg 64.1 kg General appearance: PRESENT: no acute distress, well-developed, well-nourished Head exam: PRESENT: atraumatic, normocephalic Mouth exam: PRESENT: moist, tongue midline Respiratory exam: PRESENT: clear to auscultation kee, decreased breath sounds - She is diminished in the lower bases bilaterally. ABSENT: rales, rhonchi, wheezes Cardiovascular exam: PRESENT: RRR. ABSENT: diastolic murmur, rubs, systolic murmur GI/Abdominal exam: PRESENT: normal bowel sounds, soft. ABSENT: distended, guarding, mass, organolmegaly, rebound, tenderness Extremities exam: PRESENT: full ROM. ABSENT: calf tenderness, clubbing, pedal edema Neurological exam: PRESENT: alert, awake, oriented to person, oriented to place , oriented to time, oriented to situation, CN II-XII grossly intact. ABSENT: motor sensory deficit Psychiatric exam: PRESENT: appropriate affect, normal mood. ABSENT: homicidal ideation, suicidal ideation Skin exam: PRESENT: dry, intact, warm. ABSENT: cyanosis, rash Results Laboratory Results: 10/26/17 07:08 10/26/17 07:08 10/23/17 10/26/17 10/26/17 04:14 07:08 07:08 WBC 4.3 RBC 2.66 L Hgb 8.7 L Hct 25.7 L MCV 97 MCH 32.6 MCHC 33.7 RDW 24.9 H Plt Count 269 Seg Neutrophils % Not Reportable Lymphocytes % Not Reportable Monocytes % Not Reportable Eosinophils % Not Reportable Basophils % Not Reportable Absolute Neutrophils Not Reportable Absolute Lymphocytes Not Reportable Absolute Monocytes Not Reportable Absolute Eosinophils Not Reportable Absolute Basophils Not Reportable Sodium 135.6 L Potassium 4.8 Chloride 93 L Carbon Dioxide 31 H Anion Gap 12 BUN 46 H Creatinine 4.67 H Est GFR ( Amer) 11 L Est GFR (Non-Af Amer) 9 L Glucose 83 Calcium 9.1 Transferrin 178 L 10/20/17 20:52 Troponin I 0.108 Impressions: Venous Doppler Study 10/20/17 14:58 IMPRESSION: NO EVIDENCE DVT OR SVT IN THE RIGHT LEG. KUB X-Ray 10/26/17 00:00 IMPRESSION: No residual fecal material. Chest X-Ray 10/26/17 07:00 IMPRESSION: Interstitial pulmonary edema. Assessment & Plan - Diagnosis (1) Acute on chronic combined systolic and diastolic CHF (congestive heart failure) Is this a current diagnosis for this admission?: Yes Plan: I believe she is scheduled to be dialyzed tomorrow. Nephrology is managing her volume status. We appreciate their assistance. (2) ESRD (end stage renal disease) on dialysis Is this a current diagnosis for this admission?: Yes Plan: I believe she is to be dialyzed tomorrow. (3) Anemia Is this a current diagnosis for this admission?: Yes Plan: Multifactorial in nature. The patient has known anemia of chronic disease due to her end-stage renal disease. She also has an element of acute blood loss anemia as she has had rectal bleeding. Currently her hemoglobin is stable. She is on a heparin drip until her INR is therapeutic. We are watching her quite closely for signs of bleeding. The patient is having a barium enema performed today. She follows with as an outpatient. (4) Hypotension Qualifiers: Hypotension type: other hypotension type Qualified Code(s): I95.89 - Other hypotension Is this a current diagnosis for this admission?: Yes Plan: Continue midodrine. (5) Mechanical heart valve present Is this a current diagnosis for this admission?: Yes Plan: Currently on heparin drip until her INR is therapeutic. (6) Diabetes mellitus, type 2 Qualifiers: Diabetes mellitus casing grader insulin use: with jail use Diabetes mellitus complication status: with kidney complications Diabetes mellitus complication detail: with chronic kidney disease Chronic kidney disease stage : on chronic dialysis Qualified Code(s): E11.22 - Type 2 diabetes mellitus with diabetic chronic kidney disease; N18.6 - End stage renal disease; Z99.2 - Dependence on renal dialysis; Z99.2 - Dependence on renal dialysis; Z99.2 - Dependence on renal dialysis; N18.6 - End stage renal disease; N18.6 - End stage renal disease; N18.6 - End stage renal disease; Z79.4 - project design engineer (current ) use of insulin; Z79.4 - jail (current) use of insulin; Z79.4 - project design engineer (current) use of insulin; Z79.4 - jail (current) use of insulin; Z99.2 - Dependence on renal dialysis Is this a current diagnosis for this admission?: Yes Plan: This may have been documented in error. The patient is not on any diabetes medication as an outpatient. She is not receiving any coverage here in the hospital and her blood sugars have been perfectly normal. (7) Full code status Is this a current diagnosis for this admission?: Yes - Time Time Spent with patient: 25-34 minutes - Inpatient Certification Medical Necessity: Other - Inpatient hospitalization remains necessary. The patient has continued vascular congestion on her chest x-ray. She needs further dialysis during this hospitalization. Her INR is subtherapeutic and she is being bridged with heparin drip. She has had GI bleeding and is at high risk of decompensation and needs close monitoring in the hospital setting.
--- NOTE | 2017-10-26 15:40 | RADIOLOGY REPORT (SQ) ---
EXAM DESCRIPTION: BARIUM ENEMA W/AIR COMPLETED DATE/TIME: 10/26/2017 3:29 pm REASON FOR STUDY: Rectal bleeding, h/o mechanical heart valve COMPARISON: None. FLUOROSCOPY TIME: 5 MINUTES 1 SECOND 14 images saved to PACS. TECHNIQUE: Following retrograde filling of the colon with barium and air, fluoroscopic spot and over head imaging of the colon was obtained and saved to PACS. LIMITATIONS: MILD STOOL RETENTION. FINDINGS: CONSUMER ADVOCATE KUB: Normal abdominal film with adequate bowel prep. CECUM: Normal mucosa without intraluminal filling defects, intrinsic or extrinsic masses, or lesions. ASCENDING COLON: Normal mucosa without intraluminal filling defects, intrinsic or extrinsic masses, o r lesions. TRANSVERSE COLON: Normal mucosa without intraluminal filling defects, intrinsic or extrinsic masses, or lesions. DESCENDING COLON: Normal mucosa without intraluminal filling defects, intrinsic or extrinsic masses, or lesions. SIGMOID COLON: FEW DIVERTICULI. RECTUM: Normal mucosa without intraluminal filling defects, intrinsic or extrinsic masses, or lesions . POST EVAC: Near complete evacuation of barium with no additional findings. OTHER: No other significant finding. IMPRESSION: DIVERTICULOSIS OTHERWISE UNREMARKABLE STUDY. COMMENT: Quality ID [id number]: Final reports for procedures using fluoroscopy that document radiation exp osure indices, or exposure time and number of fluorographic images (if radiation exposure indices are not available) TECHNICAL DOCUMENTATION: JOB ID: [id number] [employer]- All Rights Reserved Reading location - IP/workstation name: [email or web address]
[2017-10-26] MEDS: MIDODRINE HCL 5 MG TABLET PO SCH ×2 (16:03→18:04)
[2017-10-26] MEDS: METOLAZONE 5 MG TABLET PO SCH ×2 (16:03→21:51)
[2017-10-26] MEDS ORDERED: ESCITALOPRAM OXALATE 10 MG TABLET PO ONE (16:30)
[2017-10-26] MEDS: ESCITALOPRAM OXALATE 10 MG TABLET PO SCH (16:48)
[2017-10-26] MEDS: HEPARIN SODIUM,PORCINE/D5W 25,000 UNIT/250 ML RTUINJ IV PRN (19:48)
[2017-10-26] MEDS: ATORVASTATIN CALCIUM 20 MG TABLET PO SCH (20:59)
[2017-10-26] MEDS ORDERED: NORMAL SALINE 500 ML IV ONE (23:45)
[2017-10-27] MEDS: ACETAMINOPHEN 325 MG TABLET PO PRN (03:44)
[2017-10-27 05:29] LABS: HEMATOCRIT 23.9 % (36.0-47.0); MEAN CORPUSCULAR HEMOGLOBIN 32.3 pg (27.0-33.4); MEAN CORPUSCULAR HGB CONC 33.3 g/dL (32.0-36.0); MEAN CORPUSCULAR VOLUME 97 fl (80-97); PLATELET COUNT 244 10^3/uL (150-450); RED BLOOD COUNT 2.46 10^6/uL (3.72-5.28); RED CELL DISTRIBUTION WIDTH 25.6 % (11.5-14.0); WHITE BLOOD COUNT 4.1 10^3/uL (4.0-10.5)
[2017-10-27 05:51] LABS: ANION GAP 15 (5-19); BLOOD UREA NITROGEN 56 mg/dL (7-20); CALCIUM 8.6 mg/dL (8.4-10.2); CARBON DIOXIDE 27 mmol/L (22-30); CHLORIDE 93 mmol/L (98-107); GLUCOSE 82 mg/dL (75-110); POTASSIUM 5.2 mmol/L (3.6-5.0); SODIUM 134.5 mmol/L (137-145)
--- NOTE | 2017-10-27 10:08 | PDOC PROGRESS REPORT ---
Subjective Progress Note for:: 10/27/17 Reason For Visit: Patient seen today on dialysis.She is undergoing dialysis without any issues. Vital signs are stable including her blood pressures.She denies any history of chest pain shortness of breath. Labs and medications were reviewed. Orders were discussed with the treating nurse on dialysis. Physical Exam Vital Signs: Temp Pulse Resp BP Pulse Ox 98.4 F 72 18 108/39 L 97 10/27/17 07:23 10/27/17 07:23 10/27/17 07:23 10/27/17 07:23 10/27/17 07:23 Intake & Output 10/26/17 10/27/17 10/28/17 06:59 06:59 06:59 Intake Total 2737 720 Output Total 0 0 Balance 2737 720 Weight 64.1 kg 66.4 kg General appearance: PRESENT: no acute distress Respiratory exam: PRESENT: clear to auscultation kee. ABSENT: crackles, rhonchi Cardiovascular exam: PRESENT: +S1, +S2, systolic murmur GI/Abdominal exam: PRESENT: normal bowel sounds, soft. ABSENT: organomegaly, tenderness Extremities exam: PRESENT: pedal edema - Trace Neurological exam: PRESENT: awake, oriented to person Results Laboratory Results: 10/27/17 04:08 10/27/17 04:08 10/27/17 10/27/17 04:08 04:08 WBC 4.1 RBC 2.46 L Hgb 8.0 L Hct 23.9 L MCV 97 MCH 32.3 MCHC 33.3 RDW 25.6 H Plt Count 244 Sodium 134.5 L Potassium 5.2 H Chloride 93 L Carbon Dioxide 27 Anion Gap 15 BUN 56 H Creatinine 5.61 H Est GFR ( Amer) 9 L Est GFR (Non-Af Amer) 7 L Glucose 82 Calcium 8.6 Phosphorus 5.0 H Magnesium 2.2 10/20/17 20:52 Troponin I 0.108 Impressions: Venous Doppler Study 10/20/17 14:58 IMPRESSION: NO EVIDENCE DVT OR SVT IN THE RIGHT LEG. Barium Enema w/ Air Contrast, therapeutic 10/26/17 00:00 IMPRESSION: DIVERTICULOSIS OTHERWISE UNREMARKABLE STUDY. KUB X-Ray 10/26/17 00:00 IMPRESSION: No residual fecal material. Chest X-Ray 10/26/17 07:00 IMPRESSION: Interstitial pulmonary edema. Assessment & Plan - Diagnosis (1) Acute on chronic combined systolic and diastolic CHF (congestive heart failure) Is this a current diagnosis for this admission?: Yes Plan: Undergoing dialysis currently. Advised her to limit her fluid intake. She has responded to the intense daily dialysis and removal of fluids. She is ready for discharge from a renal point of view. (2) ESRD (end stage renal disease) on dialysis Is this a current diagnosis for this admission?: Yes Plan: She is undergoing dialysis currently. It is being supervised to ensure safe and smooth procedure. Vital signs are stable. Orders were discussed with the treating dialysis nurse. Will remove approximately 4 L of fluid as tolerated. Orders given for epo. (3) Hypotension Qualifiers: Hypotension type: other hypotension type Qualified Code(s): I95.89 - Other hypotension Is this a current diagnosis for this admission?: Yes Plan: .Chronic. On Midodrin 10 mg and monitor the response. (4) Anemia in chronic kidney disease Qualifiers: Chronic kidney disease stage: on chronic dialysis Qualified Code(s): N18.6 - End stage renal disease; D63.1 - Anemia in chronic kidney disease; D63.1 - Anemia in chronic kidney disease; Z99.2 - Dependence on renal dialysis; Z99.2 - Dependence on renal dialysis; Z99.2 - Dependence on renal dialysis; Z99.2 - Dependence on renal dialysis Is this a current diagnosis for this admission?: Yes Plan: Ordered Procrit. (5) Diabetes mellitus, type 2 Qualifiers: Diabetes mellitus shelter insulin use: with shelter use Diabetes mellitus complication status: with kidney complications Diabetes mellitus complication detail: with chronic kidney disease Chronic kidney disease stage : on chronic dialysis Qualified Code(s): E11.22 - Type 2 diabetes mellitus with diabetic chronic kidney disease; N18.6 - End stage renal disease; Z99.2 - Dependence on renal dialysis; Z99.2 - Dependence on renal dialysis; Z99.2 - Dependence on renal dialysis; N18.6 - End stage renal disease; N18.6 - End stage renal disease; N18.6 - End stage renal disease; Z79.4 - penitentiary (current ) use of insulin; Z79.4 - terminal gauger (current) use of insulin; Z79.4 - terminal gauger (current) use of insulin; Z79.4 - penitentiary (current) use of insulin; Z99.2 - Dependence on renal dialysis Is this a current diagnosis for this admission?: Yes Plan: Advised on tight control. (6) Acute hypoxemic respiratory failure Plan: Secondary to congestive heart failure. She has responded very well to the intense dialysis. (7) Atrial fibrillation Qualifiers: Atrial fibrillation type: chronic Qualified Code(s): I48.2 - Chronic atrial fibrillation Is this a current diagnosis for this admission?: Yes Plan: Presently rate controlled.
[2017-10-27] MEDS ORDERED: HEPARIN SOD (PORCINE) 1,000 UNIT/ML 10 ML VIAL IV PRN (10:41)
[2017-10-27] MEDS: EPOETIN ALFA INJ 20000 UNIT/1 ML VIAL (RENAL) IV PRN (11:00)
[2017-10-27] MEDS: MIDODRINE HCL 5 MG TABLET PO SCH ×3 (12:09→17:32)
[2017-10-27] MEDS: METOLAZONE 5 MG TABLET PO SCH ×2 (12:14→22:05)
[2017-10-27] MEDS: PANTOPRAZOLE SODIUM 40 MG VIAL IV SCH (12:14)
[2017-10-27] MEDS: ESCITALOPRAM OXALATE 10 MG TABLET PO SCH (12:14)
--- NOTE | 2017-10-27 14:42 | PDOC PROGRESS REPORT ---
Subjective Progress Note for:: 10/27/17 Subjective:: She states she is doing well. She denies any issues today. She did have dialysis today. She denies any shortness of breath She has a past history of ESRD, atrial fib, known diastolic CHF, and mechanical aortic valve. She has had issues with rectal bleeding. Barium enema shows diverticulosis. She has not had any bleeding the past 48 hours. Will restart her coumadin today. She denies any nausea, vomiting, chest pain, shortness of breath, weakness, fatigue, fever or chills, Reason For Visit: PNEUMONIA Physical Exam Vital Signs: Temp Pulse Resp BP Pulse Ox 98.4 F 72 18 108/39 L 97 10/27/17 07:23 10/27/17 07:23 10/27/17 07:23 10/27/17 07:23 10/27/17 07:23 Intake & Output 10/26/17 10/27/17 10/28/17 06:59 06:59 06:59 Intake Total 2737 720 Output Total 0 0 Balance 2737 720 Weight 64.1 kg 66.4 kg General appearance: PRESENT: no acute distress, well-developed, well-nourished Mouth exam: PRESENT: moist, tongue midline Neck exam: ABSENT: carotid bruit, JVD, lymphadenopathy, thyromegaly Respiratory exam: PRESENT: clear to auscultation kee. ABSENT: rales, rhonchi, wheezes Cardiovascular exam: PRESENT: RRR. ABSENT: diastolic murmur, rubs, systolic murmur Pulses: PRESENT: normal dorsalis pedis pul GI/Abdominal exam: PRESENT: normal bowel sounds, soft. ABSENT: distended, guarding, mass, organolmegaly, rebound, tenderness Extremities exam: PRESENT: full ROM. ABSENT: calf tenderness, clubbing, pedal edema Neurological exam: PRESENT: alert, awake, oriented to person, oriented to place , oriented to time, oriented to situation, CN II-XII grossly intact. ABSENT: motor sensory deficit Results Laboratory Results: 10/27/17 04:08 10/27/17 04:08 10/27/17 10/27/17 04:08 04:08 WBC 4.1 RBC 2.46 L Hgb 8.0 L Hct 23.9 L MCV 97 MCH 32.3 MCHC 33.3 RDW 25.6 H Plt Count 244 Sodium 134.5 L Potassium 5.2 H Chloride 93 L Carbon Dioxide 27 Anion Gap 15 BUN 56 H Creatinine 5.61 H Est GFR ( Amer) 9 L Est GFR (Non-Af Amer) 7 L Glucose 82 Calcium 8.6 Phosphorus 5.0 H Magnesium 2.2 10/20/17 20:52 Troponin I 0.108 Impressions: Venous Doppler Study 10/20/17 14:58 IMPRESSION: NO EVIDENCE DVT OR SVT IN THE RIGHT LEG. Barium Enema w/ Air Contrast, therapeutic 10/26/17 00:00 IMPRESSION: DIVERTICULOSIS OTHERWISE UNREMARKABLE STUDY. KUB X-Ray 10/26/17 00:00 IMPRESSION: No residual fecal material. Chest X-Ray 10/26/17 07:00 IMPRESSION: Interstitial pulmonary edema. Assessment & Plan - Diagnosis (1) Acute on chronic combined systolic and diastolic CHF (congestive heart failure) Is this a current diagnosis for this admission?: Yes Plan: volume status being monitored by nephrology, continue scheduled dialysis (2) Diabetes mellitus, type 2 Qualifiers: Diabetes mellitus jail insulin use: with jail use Diabetes mellitus complication status: with kidney complications Diabetes mellitus complication detail: with chronic kidney disease Chronic kidney disease stage : on chronic dialysis Is this a current diagnosis for this admission?: Yes Plan: conintue SSI (3) End stage renal disease Is this a current diagnosis for this admission?: Yes (4) Hypotension Qualifiers: Hypotension type: other hypotension type Qualified Code(s): I95.89 - Other hypotension Is this a current diagnosis for this admission?: Yes Plan: improved, will monitor closely (5) Mechanical heart valve present Is this a current diagnosis for this admission?: Yes Plan: will restart coumadin and monitor daily INR (6) Atrial fibrillation with rapid ventricular response Is this a current diagnosis for this admission?: Yes Plan: given a 1 times dose of IV metoprolol and restarted oral metoprolol, will monitor - Time Time Spent with patient: 15-24 minutes - Inpatient Certification Based on my medical assessment, after consideration of the patient's comorbidities, presenting symptoms, or acuity I expect that the services needed warrant INPATIENT care.: Yes I certify that my determination is in accordance with my understanding of Medicare's requirements for reasonable and necessary INPATIENT services [42 CFR 412.3e].: Yes Medical Necessity: Significant Comorbidiites Make Outpatient Treatment Too Risky , Need For Continuous Telemetry Monitoring
[2017-10-27] MEDS ORDERED: METOPROLOL TARTRATE PF/INJ 5 MG/5 ML SDV IV ONE (15:00)
[2017-10-27] MEDS: DIGOXIN 0.125 MG TABLET PO SCH (15:26)
[2017-10-27 15:34] LABS: INTERNATIONAL RATION (INR) 1.06; PROTHROMBIN TIME 14.5 SEC (11.4-15.4)
[2017-10-27] MEDS: LORAZEPAM 1 MG TABLET PO PRN (18:51)
[2017-10-27] MEDS: HEPARIN SODIUM,PORCINE/D5W 25,000 UNIT/250 ML RTUINJ IV PRN (20:08)
[2017-10-27] MEDS: WARFARIN SODIUM 5 MG TABLET PO SCH (22:06)
[2017-10-27] MEDS: ATORVASTATIN CALCIUM 20 MG TABLET PO SCH (22:06)
[2017-10-27] MEDS: METOPROLOL TARTRATE 25 MG TABLET PO SCH (22:07)
[2017-10-28 06:35] LABS: HEMATOCRIT 25.5 % (36.0-47.0); HEMOGLOBIN 8.5 g/dL (12.0-15.5); MEAN CORPUSCULAR HEMOGLOBIN 33.1 pg (27.0-33.4); MEAN CORPUSCULAR HGB CONC 33.6 g/dL (32.0-36.0); MEAN CORPUSCULAR VOLUME 99 fl (80-97); PLATELET COUNT 258 10^3/uL (150-450); RED BLOOD COUNT 2.59 10^6/uL (3.72-5.28); RED CELL DISTRIBUTION WIDTH 25.5 % (11.5-14.0); WHITE BLOOD COUNT 3.7 10^3/uL (4.0-10.5)
[2017-10-28 06:44] LABS: PROTHROMBIN TIME 14.9 SEC (11.4-15.4)
[2017-10-28 06:45] LABS: INTERNATIONAL RATION (INR) 1.09
[2017-10-28 06:56] LABS: ABSOLUTE LYMPHOCYTES# (MANUAL) 0.7 10^3/uL (0.5-4.7); ABSOLUTE MONOCYTES # (MANUAL) 0.7 10^3/uL (0.1-1.4); ABSOLUTE NEUTROPHILS# (MANUAL) 2.3 10^3/uL (1.7-8.2); BASOPHILS % (MANUAL) 1 % (0-2); EOSINOPHILS % (MANUAL) 1 % (0-6); LYMPHOCYTES % (MANUAL) 18 % (13-45); MONOCYTES % (MANUAL) 19 % (3-13); SEGMENTED NEUTROPHILS % (MAN) 61 % (42-78); TOTAL CELLS COUNTED 100
[2017-10-28 06:58] LABS: ANISOCYTOSIS 3+; OVALOCYTES 1+; PLATELET COMMENT ADEQUATE; POIKILOCYTOSIS 1+; SCHISTOCYTES SLIGHT
[2017-10-28 10:32] LABS: APPEARANCE,URINE CLOUDY; BILIRUBIN,URINE SMALL (NEGATIVE); COLOR,URINE AMBER; GLUCOSE, URINE NEGATIVE (NEGATIVE); KETONES,URINE NEGATIVE (NEGATIVE); LEUKOCYTE ESTERASE,URINE MODERATE (NEGATIVE); NITRITE,URINE NEGATIVE (NEGATIVE); PROTEIN,URINE 100 mg/dL (NEGATIVE); URINE SPECIFIC GRAVITY 1.018
[2017-10-28] MEDS: MIDODRINE HCL 5 MG TABLET PO SCH ×3 (11:00→17:25)
[2017-10-28] MEDS: METOPROLOL TARTRATE 25 MG TABLET PO SCH ×2 (11:00→21:40)
[2017-10-28] MEDS: PANTOPRAZOLE SODIUM 40 MG VIAL IV SCH (11:01)
[2017-10-28] MEDS: METOLAZONE 5 MG TABLET PO SCH ×2 (11:01→21:42)
[2017-10-28] MEDS: ESCITALOPRAM OXALATE 10 MG TABLET PO SCH (11:01)
--- NOTE | 2017-10-28 11:55 | PDOC PROGRESS REPORT ---
Subjective Progress Note for:: 10/28/17 Subjective:: Patient was seen laying in bed today. She said she feels tired. She denies any bleeding. She has been restarted on Coumadin while still on heparin bridge Reason For Visit: PNEUMONIA Physical Exam Vital Signs: Temp Pulse Resp BP Pulse Ox 98.0 F 67 18 102/45 L 100 10/28/17 08:00 10/28/17 08:00 10/28/17 08:00 10/28/17 08:00 10/28/17 08:00 Intake & Output 10/27/17 10/28/17 10/29/17 06:59 06:59 06:59 Intake Total 720 1955 Output Total 0 0 Balance 720 1955 Weight 66.4 kg 61.8 kg General appearance: PRESENT: no acute distress, thin Head exam: PRESENT: atraumatic Eye exam: PRESENT: conjunctiva pink, EOMI, PERRLA. ABSENT: scleral icterus Neck exam: ABSENT: carotid bruit, JVD, lymphadenopathy, thyromegaly Respiratory exam: PRESENT: clear to auscultation kee. ABSENT: rales, rhonchi, wheezes Cardiovascular exam: PRESENT: irregular rhythm, +S1, +S2, systolic murmur Pulses: PRESENT: normal dorsalis pedis pul GI/Abdominal exam: PRESENT: normal bowel sounds, soft. ABSENT: distended, guarding, mass, organolmegaly, rebound, tenderness Rectal exam: PRESENT: deferred Extremities exam: PRESENT: full ROM. ABSENT: calf tenderness, clubbing, pedal edema Neurological exam: PRESENT: alert, oriented to person, oriented to place, oriented to situation, CN II-XII grossly intact Results Laboratory Results: 10/28/17 06:15 10/27/17 04:08 10/28/17 10/28/17 06:15 09:40 WBC 3.7 L RBC 2.59 L Hgb 8.5 L Hct 25.5 L MCV 99 H MCH 33.1 MCHC 33.6 RDW 25.5 H Plt Count 258 Seg Neutrophils % Not Reportable Lymphocytes % Not Reportable Monocytes % Not Reportable Eosinophils % Not Reportable Basophils % Not Reportable Absolute Neutrophils Not Reportable Absolute Lymphocytes Not Reportable Absolute Monocytes Not Reportable Absolute Eosinophils Not Reportable Absolute Basophils Not Reportable Urine Color PANDA Urine Appearance CLOUDY Urine pH 5.0 Ur Specific [place] 1.018 Urine Protein 100 H Urine Glucose (UA) NEGATIVE Urine Ketones NEGATIVE Urine Blood MODERATE H Urine Nitrite NEGATIVE Ur Leukocyte Esterase MODERATE H Urine WBC (Auto) 30 Urine RBC (Auto) 13 10/20/17 20:52 Troponin I 0.108 Impressions: Venous Doppler Study 10/20/17 14:58 IMPRESSION: NO EVIDENCE DVT OR SVT IN THE RIGHT LEG. Barium Enema w/ Air Contrast, therapeutic 10/26/17 00:00 IMPRESSION: DIVERTICULOSIS OTHERWISE UNREMARKABLE STUDY. KUB X-Ray 10/26/17 00:00 IMPRESSION: No residual fecal material. Chest X-Ray 10/26/17 07:00 IMPRESSION: Interstitial pulmonary edema. Assessment & Plan - Diagnosis (1) Diastolic CHF Qualifiers: Heart failure chronicity: chronic Qualified Code(s): I50.32 - Chronic diastolic (congestive) heart failure Is this a current diagnosis for this admission?: Yes Plan: Secondary to ESRD. Continue HD as per Nephrology (2) Atrial fibrillation Qualifiers: Atrial fibrillation type: chronic Qualified Code(s): I48.2 - Chronic atrial fibrillation Is this a current diagnosis for this admission?: Yes Plan: Currently on heparin bridge with coumadin (3) End stage renal disease Is this a current diagnosis for this admission?: Yes Plan: Continue dialysis as recommended (4) Mechanical heart valve present Is this a current diagnosis for this admission?: Yes Plan: Secondary to aortic valve replacement (5) Anemia Qualifiers: Other causes of anemia: chronic disease, kidney Is this a current diagnosis for this admission?: Yes Plan: No further bleeding noted. Patient apparently had a barium study done which showed diverticulosis but no other findings. Has been transfused and hemoglobin remains stable. - Time Time Spent with patient: 15-24 minutes Medications reviewed and adjusted accordingly: Yes Anticipated discharge: Home - Inpatient Certification Based on my medical assessment, after consideration of the patient's comorbidities, presenting symptoms, or acuity I expect that the services needed warrant INPATIENT care.: Yes Medical Necessity: Need Close Monitoring Due to Risk of Patient Decompensation, Risk of Complication if Not Cared For in Hospital
[2017-10-28] MEDS: HEPARIN SODIUM,PORCINE/D5W 25,000 UNIT/250 ML RTUINJ IV PRN (19:09)
[2017-10-28] MEDS: ACETAMINOPHEN 325 MG TABLET PO PRN (19:59)
[2017-10-28] MEDS: WARFARIN SODIUM 5 MG TABLET PO SCH (21:40)
[2017-10-28] MEDS: ATORVASTATIN CALCIUM 20 MG TABLET PO SCH (21:40)
[2017-10-28] MEDS: LORAZEPAM 1 MG TABLET PO PRN (21:55)
[2017-10-29 04:24] LABS: HEMATOCRIT 26.7 % (36.0-47.0); HEMOGLOBIN 8.7 g/dL (12.0-15.5); MEAN CORPUSCULAR HEMOGLOBIN 32.3 pg (27.0-33.4); MEAN CORPUSCULAR HGB CONC 32.8 g/dL (32.0-36.0); MEAN CORPUSCULAR VOLUME 99 fl (80-97); PLATELET COUNT 267 10^3/uL (150-450); WHITE BLOOD COUNT 3.6 10^3/uL (4.0-10.5)
[2017-10-29 04:28] LABS: INTERNATIONAL RATION (INR) 1.15; PROTHROMBIN TIME 15.5 SEC (11.4-15.4)
[2017-10-29 04:37] LABS: ALANINE AMINOTRANSFERASE 21 U/L (9-52); ALBUMIN 3.6 g/dL (3.5-5.0); ALKALINE PHOSPHATASE 108 U/L (38-126); ANION GAP 13 (5-19); ASPARTATE AMINO TRANSFERASE 21 U/L (14-36); BILIRUBIN,DIRECT 0.4 mg/dL (0.0-0.4); BILIRUBIN,TOTAL 0.4 mg/dL (0.2-1.3); BLOOD UREA NITROGEN 56 mg/dL (7-20); CALCIUM 8.6 mg/dL (8.4-10.2); CARBON DIOXIDE 28 mmol/L (22-30); CHLORIDE 94 mmol/L (98-107); GLUCOSE 112 mg/dL (75-110); POTASSIUM 4.5 mmol/L (3.6-5.0); SODIUM 135.1 mmol/L (137-145); TOTAL PROTEIN 6.5 g/dL (6.3-8.2)
[2017-10-29 04:47] LABS: RED CELL DISTRIBUTION WIDTH 24.9 % (11.5-14.0)
[2017-10-29] MEDS: EPOETIN ALFA INJ 20000 UNIT/1 ML VIAL (RENAL) IV PRN (11:34)
[2017-10-29] MEDS ORDERED: HEPARIN SOD (PORCINE) 1,000 UNIT/ML 10 ML VIAL IV PRN ×3 (11:53→12:21)
[2017-10-29] MEDS: MIDODRINE HCL 5 MG TABLET PO SCH ×3 (12:45→18:17)
[2017-10-29] MEDS: PANTOPRAZOLE SODIUM 40 MG VIAL IV SCH (12:45)
[2017-10-29] MEDS: METOLAZONE 5 MG TABLET PO SCH ×2 (12:45→22:14)
[2017-10-29] MEDS: ESCITALOPRAM OXALATE 10 MG TABLET PO SCH (12:46)
[2017-10-29] MEDS: METOPROLOL TARTRATE 25 MG TABLET PO SCH ×2 (12:46→22:13)
--- NOTE | 2017-10-29 13:34 | PDOC PROGRESS REPORT ---
Subjective Progress Note for:: 10/29/17 Subjective:: Patient was seen laying in bed today. She said she feels tired. She denies any bleeding. She has been restarted on Coumadin while still on heparin bridge INR 1.15 Reason For Visit: PNEUMONIA Physical Exam Vital Signs: Temp Pulse Resp BP Pulse Ox 98.2 F 69 20 100/38 L 93 10/29/17 03:46 10/29/17 07:03 10/29/17 03:46 10/29/17 07:03 10/29/17 09:03 Intake & Output 10/28/17 10/29/17 10/30/17 06:59 06:59 06:59 Intake Total 1954 1476 Output Total 0 Balance 1954 147 Weight 61.8 kg 62 kg General appearance: PRESENT: no acute distress, thin Head exam: PRESENT: atraumatic Eye exam: PRESENT: conjunctiva pink, EOMI, PERRLA. ABSENT: scleral icterus Neck exam: ABSENT: carotid bruit, JVD, lymphadenopathy, thyromegaly Respiratory exam: PRESENT: clear to auscultation kee, other. ABSENT: rales, rhonchi, wheezes Cardiovascular exam: PRESENT: irregular rhythm, +S1, systolic murmur Pulses: PRESENT: normal carotid pulses GI/Abdominal exam: PRESENT: normal bowel sounds, soft. ABSENT: distended, guarding, mass, organolmegaly, rebound, tenderness Rectal exam: PRESENT: deferred Extremities exam: PRESENT: full ROM. ABSENT: calf tenderness, clubbing, pedal edema Neurological exam: PRESENT: alert, awake, oriented to person, oriented to time Psychiatric exam: PRESENT: appropriate affect, normal mood. ABSENT: homicidal ideation, suicidal ideation Results Laboratory Results: 10/29/17 04:02 10/29/17 04:02 10/28/17 10/29/17 10/29/17 13:45 04:02 04:02 WBC 3.6 L RBC 2.70 L Hgb 8.7 L Hct 26.7 L MCV 99 H MCH 32.3 MCHC 32.8 RDW 24.9 H Plt Count 267 Sodium 135.1 L Potassium 4.5 Chloride 94 L Carbon Dioxide 28 Anion Gap 13 BUN 56 H Creatinine 6.25 H Est GFR ( Amer) 8 L Est GFR (Non-Af Amer) 6 L Glucose 112 H Calcium 8.6 Total Bilirubin 0.4 AST 21 ALT 21 Alkaline Phosphatase 108 Total Protein 6.5 Albumin 3.6 Stool Occult Blood NEGATIVE 10/20/17 20:52 Troponin I 0.108 Impressions: Venous Doppler Study 10/20/17 14:58 IMPRESSION: NO EVIDENCE DVT OR SVT IN THE RIGHT LEG. Barium Enema w/ Air Contrast, therapeutic 10/26/17 00:00 IMPRESSION: DIVERTICULOSIS OTHERWISE UNREMARKABLE STUDY. KUB X-Ray 10/26/17 00:00 IMPRESSION: No residual fecal material. Chest X-Ray 10/26/17 07:00 IMPRESSION: Interstitial pulmonary edema. Assessment & Plan - Diagnosis (1) Diastolic CHF Qualifiers: Heart failure chronicity: chronic Qualified Code(s): I50.32 - Chronic diastolic (congestive) heart failure Is this a current diagnosis for this admission?: Yes Plan: Secondary to ESRD. Continue HD as per Nephrology (2) Atrial fibrillation Qualifiers: Atrial fibrillation type: chronic Qualified Code(s): I48.2 - Chronic atrial fibrillation Is this a current diagnosis for this admission?: Yes Plan: Currently on heparin bridge with coumadin. Awaiting INR to be therapeutic (3) End stage renal disease Is this a current diagnosis for this admission?: Yes Plan: Continue dialysis as recommended (4) Mechanical heart valve present Is this a current diagnosis for this admission?: Yes Plan: Secondary to aortic valve replacement INR needs to be therapeutic with Heparin bridge prior to discharge (5) Anemia Qualifiers: Other causes of anemia: chronic disease, kidney Is this a current diagnosis for this admission?: Yes Plan: No further bleeding noted. Patient had a barium study done which showed diverticulosis but no other findings. Has been transfused and hemoglobin remains stable. - Time Time Spent with patient: 15-24 minutes Medications reviewed and adjusted accordingly: Yes Anticipated discharge: Home - Inpatient Certification Based on my medical assessment, after consideration of the patient's comorbidities, presenting symptoms, or acuity I expect that the services needed warrant INPATIENT care.: Yes Medical Necessity: Significant Comorbidiites Make Outpatient Treatment Too Risky , Risk of Complication if Not Cared For in Hospital
--- NOTE | 2017-10-29 14:24 | PDOC PROGRESS REPORT ---
Subjective Progress Note for:: 10/29/17 Reason For Visit: Patient seen on dialysis today. She is undergoing dialysis without any issues. Vital signs are stable. She denies any history of chest pain or shortness of breath. Labs and medications were reviewed. Orders were discussed with the treating dialysis nurse. Physical Exam Vital Signs: Temp Pulse Resp BP Pulse Ox 98.2 F 69 20 100/38 L 93 10/29/17 03:46 10/29/17 07:03 10/29/17 03:46 10/29/17 07:03 10/29/17 09:03 Intake & Output 10/28/17 10/29/17 10/30/17 06:59 06:59 06:59 Intake Total 1954 1477 342 Output Total 0 0 Balance 1954 147 342 Weight 61.8 kg 62 kg General appearance: PRESENT: no acute distress Respiratory exam: PRESENT: clear to auscultation kee. ABSENT: crackles, rhonchi Cardiovascular exam: PRESENT: +S1, +S2, systolic murmur GI/Abdominal exam: PRESENT: normal bowel sounds, soft. ABSENT: organomegaly, tenderness Extremities exam: ABSENT: pedal edema Neurological exam: PRESENT: awake, oriented to person Results Laboratory Results: 10/29/17 04:02 10/29/17 04:02 10/29/17 10/29/17 04:02 04:02 WBC 3.6 L RBC 2.70 L Hgb 8.7 L Hct 26.7 L MCV 99 H MCH 32.3 MCHC 32.8 RDW 24.9 H Plt Count 267 Sodium 135.1 L Potassium 4.5 Chloride 94 L Carbon Dioxide 28 Anion Gap 13 BUN 56 H Creatinine 6.25 H Est GFR ( Amer) 8 L Est GFR (Non-Af Amer) 6 L Glucose 112 H Calcium 8.6 Total Bilirubin 0.4 AST 21 ALT 21 Alkaline Phosphatase 108 Total Protein 6.5 Albumin 3.6 10/20/17 20:52 Troponin I 0.108 Impressions: Venous Doppler Study 10/20/17 14:58 IMPRESSION: NO EVIDENCE DVT OR SVT IN THE RIGHT LEG. Barium Enema w/ Air Contrast, therapeutic 10/26/17 00:00 IMPRESSION: DIVERTICULOSIS OTHERWISE UNREMARKABLE STUDY. KUB X-Ray 10/26/17 00:00 IMPRESSION: No residual fecal material. Chest X-Ray 10/26/17 07:00 IMPRESSION: Interstitial pulmonary edema. Assessment & Plan - Diagnosis (1) Acute on chronic combined systolic and diastolic CHF (congestive heart failure) Is this a current diagnosis for this admission?: Yes Plan: She has responded to the intense daily dialysis and removal of fluids. She is ready for discharge from a renal point of view. (2) ESRD (end stage renal disease) on dialysis Is this a current diagnosis for this admission?: Yes Plan: She is undergoing dialysis currently. It is being supervised to ensure safe and smooth procedure. Vital signs are stable. Orders were discussed with the treating dialysis nurse. Will remove approximately 3 L of fluid as tolerated. Orders given for epo. (3) Hypotension Qualifiers: Hypotension type: other hypotension type Qualified Code(s): I95.89 - Other hypotension Is this a current diagnosis for this admission?: Yes Plan: .Chronic. On Midodrin 10 mg and monitor the response.Advised on compliance with this medication as this is one of the reasons why we are unable to pull off fluids of her as an outpatient. (4) Anemia in chronic kidney disease Qualifiers: Chronic kidney disease stage: on chronic dialysis Qualified Code(s): N18.6 - End stage renal disease; D63.1 - Anemia in chronic kidney disease; D63.1 - Anemia in chronic kidney disease; Z99.2 - Dependence on renal dialysis; Z99.2 - Dependence on renal dialysis; Z99.2 - Dependence on renal dialysis; Z99.2 - Dependence on renal dialysis Is this a current diagnosis for this admission?: Yes Plan: Ordered Procrit. (5) Diabetes mellitus, type 2 Qualifiers: Diabetes mellitus snf insulin use: with snf use Diabetes mellitus complication status: with kidney complications Diabetes mellitus complication detail: with chronic kidney disease Chronic kidney disease stage : on chronic dialysis Qualified Code(s): E11.22 - Type 2 diabetes mellitus with diabetic chronic kidney disease; N18.6 - End stage renal disease; Z99.2 - Dependence on renal dialysis; Z99.2 - Dependence on renal dialysis; Z99.2 - Dependence on renal dialysis; N18.6 - End stage renal disease; N18.6 - End stage renal disease; N18.6 - End stage renal disease; Z79.4 - correction (current ) use of insulin; Z79.4 - manager intermediate (current) use of insulin; Z79.4 - correction (current) use of insulin; Z79.4 - correction (current) use of insulin; Z99.2 - Dependence on renal dialysis Is this a current diagnosis for this admission?: Yes (6) Acute hypoxemic respiratory failure Plan: Secondary to congestive heart failure. She has responded very well to the intense dialysis. (7) Atrial fibrillation Qualifiers: Atrial fibrillation type: chronic Qualified Code(s): I48.2 - Chronic atrial fibrillation Is this a current diagnosis for this admission?: Yes Plan: Presently rate controlled.
[2017-10-29] MEDS: DIGOXIN 0.125 MG TABLET PO SCH (15:33)
[2017-10-29] MEDS: HEPARIN SODIUM,PORCINE/D5W 25,000 UNIT/250 ML RTUINJ IV PRN (18:17)
[2017-10-29] MEDS: ATORVASTATIN CALCIUM 20 MG TABLET PO SCH (22:13)
[2017-10-29] MEDS: TRAMADOL HCL 50 MG TABLET PO PRN (22:14)
[2017-10-29] MEDS: WARFARIN SODIUM 5 MG TABLET PO SCH (22:14)
[2017-10-30] MEDS: ACETAMINOPHEN 325 MG TABLET PO PRN (04:45)
[2017-10-30 05:07] LABS: INTERNATIONAL RATION (INR) 1.09; PROTHROMBIN TIME 14.9 SEC (11.4-15.4)
[2017-10-30] MEDS ORDERED: WARFARIN SODIUM 5 MG TABLET PO SCH (07:14)
[2017-10-30] MEDS ORDERED: PANTOPRAZOLE SODIUM 40 MG VIAL IV SCH (10:00)
[2017-10-30] MEDS: METOLAZONE 5 MG TABLET PO SCH ×2 (10:47→22:30)
[2017-10-30] MEDS: ESCITALOPRAM OXALATE 10 MG TABLET PO SCH (10:47)
[2017-10-30] MEDS: METOPROLOL TARTRATE 25 MG TABLET PO SCH ×2 (10:47→22:30)
[2017-10-30] MEDS: MIDODRINE HCL 5 MG TABLET PO SCH ×3 (10:47→17:33)
[2017-10-30] MEDS ORDERED: PANTOPRAZOLE SODIUM 40 MG VIAL IV ONE (11:00)
--- NOTE | 2017-10-30 15:56 | PDOC PROGRESS REPORT ---
Subjective Progress Note for:: 10/30/17 Subjective:: Patient was seen laying in bed today. She said she feels tired. She denies any bleeding. She has been restarted on Coumadin while still on heparin bridge INR 1.109. I have increased Coumadin to 7.5 mg but at this point she may need more than that Reason For Visit: PNEUMONIA Physical Exam Vital Signs: Temp Pulse Resp BP Pulse Ox 98.5 F 67 18 133/50 H 100 10/30/17 12:16 10/30/17 14:00 10/30/17 12:16 10/30/17 12:16 10/30/17 12:16 Intake & Output 10/29/17 10/30/17 10/31/17 06:59 06:59 06:59 Intake Total 1477 1067 237 Output Total 2700 Balance 1477 -1633 237 Weight 62 kg 61.8 kg General appearance: PRESENT: no acute distress, thin Head exam: PRESENT: atraumatic Ear exam: PRESENT: normal external ear exam Mouth exam: PRESENT: moist, tongue midline Neck exam: ABSENT: carotid bruit, JVD, lymphadenopathy, thyromegaly Respiratory exam: PRESENT: clear to auscultation kee. ABSENT: rales, rhonchi, wheezes Cardiovascular exam: PRESENT: irregular rhythm, +S1, +S2, systolic murmur. ABSENT: gallop, rubs Rectal exam: PRESENT: deferred Extremities exam: PRESENT: full ROM. ABSENT: calf tenderness, clubbing, pedal edema Musculoskeletal exam: PRESENT: ambulatory Neurological exam: PRESENT: alert, oriented to person, oriented to place, oriented to time, oriented to situation Psychiatric exam: PRESENT: appropriate affect, normal mood. ABSENT: homicidal ideation, suicidal ideation Results Laboratory Results: 10/29/17 04:02 10/29/17 04:02 10/20/17 20:52 Troponin I 0.108 Impressions: Venous Doppler Study 10/20/17 14:58 IMPRESSION: NO EVIDENCE DVT OR SVT IN THE RIGHT LEG. Barium Enema w/ Air Contrast, therapeutic 10/26/17 00:00 IMPRESSION: DIVERTICULOSIS OTHERWISE UNREMARKABLE STUDY. KUB X-Ray 10/26/17 00:00 IMPRESSION: No residual fecal material. Chest X-Ray 10/26/17 07:00 IMPRESSION: Interstitial pulmonary edema. Assessment & Plan - Diagnosis (1) Diastolic CHF Qualifiers: Heart failure chronicity: chronic Qualified Code(s): I50.32 - Chronic diastolic (congestive) heart failure Is this a current diagnosis for this admission?: Yes Plan: Secondary to ESRD. Continue HD as per Nephrology last dialysis was October 29 (2) Atrial fibrillation Qualifiers: Atrial fibrillation type: chronic Qualified Code(s): I48.2 - Chronic atrial fibrillation Is this a current diagnosis for this admission?: Yes Plan: Currently on heparin bridge with coumadin. Awaiting INR to be therapeutic (3) End stage renal disease Is this a current diagnosis for this admission?: Yes Plan: Continue dialysis as recommended (4) Mechanical heart valve present Is this a current diagnosis for this admission?: Yes Plan: Secondary to aortic valve replacement INR still sub-Therapeutic so will continue heparin bridge until INR therapeutic (5) Anemia Qualifiers: Other causes of anemia: chronic disease, kidney Is this a current diagnosis for this admission?: Yes Plan: No further bleeding noted. Patient had a barium study done which showed diverticulosis but no other findings. Has been transfused and hemoglobin remains stable. - Time Time Spent with patient: 15-24 minutes Medications reviewed and adjusted accordingly: Yes Anticipated discharge: Home - Inpatient Certification Based on my medical assessment, after consideration of the patient's comorbidities, presenting symptoms, or acuity I expect that the services needed warrant INPATIENT care.: Yes Medical Necessity: Other - Intravenous heparin
[2017-10-30] MEDS: HEPARIN SODIUM,PORCINE/D5W 25,000 UNIT/250 ML RTUINJ IV PRN (16:14)
[2017-10-30 17:27] LABS: APPEARANCE,URINE CLOUDY; BILIRUBIN,URINE SMALL (NEGATIVE); COLOR,URINE YELLOW; GLUCOSE, URINE NEGATIVE (NEGATIVE); KETONES,URINE NEGATIVE (NEGATIVE); LEUKOCYTE ESTERASE,URINE LARGE (NEGATIVE); NITRITE,URINE NEGATIVE (NEGATIVE); PROTEIN,URINE 100 mg/dL (NEGATIVE); URINE SPECIFIC GRAVITY 1.023
[2017-10-30] MEDS: TRAMADOL HCL 50 MG TABLET PO PRN (20:49)
[2017-10-30] MEDS: LORAZEPAM 1 MG TABLET PO PRN (20:50)
[2017-10-30] MEDS: WARFARIN SODIUM 7.5 MG TABLET PO SCH (22:30)
[2017-10-30] MEDS: ATORVASTATIN CALCIUM 20 MG TABLET PO SCH (22:30)
[2017-10-31 05:05] LABS: HEMATOCRIT 28.6 % (36.0-47.0); HEMOGLOBIN 9.3 g/dL (12.0-15.5); MEAN CORPUSCULAR HEMOGLOBIN 32.6 pg (27.0-33.4); MEAN CORPUSCULAR HGB CONC 32.5 g/dL (32.0-36.0); MEAN CORPUSCULAR VOLUME 100 fl (80-97); PLATELET COUNT 303 10^3/uL (150-450); RED BLOOD COUNT 2.85 10^6/uL (3.72-5.28); RED CELL DISTRIBUTION WIDTH 25.2 % (11.5-14.0); WHITE BLOOD COUNT 3.8 10^3/uL (4.0-10.5)
[2017-10-31 05:16] LABS: INTERNATIONAL RATION (INR) 1.18; PROTHROMBIN TIME 15.6 SEC (11.4-15.4)
[2017-10-31 05:18] LABS: PARTIAL THROMBOPLASTIN TIME 61.4 SEC (23.5-35.8)
[2017-10-31 05:23] LABS: ANION GAP 11 (5-19); BLOOD UREA NITROGEN 54 mg/dL (7-20); CALCIUM 8.9 mg/dL (8.4-10.2); CARBON DIOXIDE 33 mmol/L (22-30); CHLORIDE 94 mmol/L (98-107); GLUCOSE 102 mg/dL (75-110); POTASSIUM 4.9 mmol/L (3.6-5.0); SODIUM 138.1 mmol/L (137-145)
[2017-10-31] MEDS ORDERED: HEPARIN SOD (PORCINE) 1,000 UNIT/ML 10 ML VIAL IV PRN (10:47)
--- NOTE | 2017-10-31 11:16 | PDOC PROGRESS REPORT ---
Subjective Progress Note for:: 10/31/17 Reason For Visit: Patient was seen today on dialysis. She is undergoing dialysis without any issues. Vital signs are stable. She denies any history of chest pain or shortness of breath.Labs and medications were reviewed. Orders were discussed with the treating dialysis nurse. Physical Exam Vital Signs: Temp Pulse Resp BP Pulse Ox 98.1 F 60 18 125/68 100 10/31/17 04:36 10/31/17 07:00 10/31/17 04:36 10/31/17 04:36 10/31/17 04:36 Intake & Output 10/30/17 10/31/17 11/01/17 06:59 06:59 06:59 Intake Total 1067 1043 Output Total 2700 0 Balance -1633 1043 Weight 61.8 kg 63.9 kg General appearance: PRESENT: no acute distress Respiratory exam: PRESENT: clear to auscultation kee. ABSENT: crackles, rhonchi Cardiovascular exam: PRESENT: +S1, +S2, systolic murmur GI/Abdominal exam: PRESENT: normal bowel sounds, soft. ABSENT: organomegaly, tenderness Extremities exam: ABSENT: pedal edema Neurological exam: PRESENT: awake, oriented to person Results Laboratory Results: 10/31/17 04:20 10/31/17 04:20 10/29/17 10/31/17 10/31/17 16:40 04:20 04:20 WBC 3.8 L RBC 2.85 L Hgb 9.3 L Hct 28.6 L MCV 100 H MCH 32.6 MCHC 32.5 RDW 25.2 H Plt Count 303 Sodium 138.1 Potassium 4.9 Chloride 94 L Carbon Dioxide 33 H Anion Gap 11 BUN 54 H Creatinine 6.33 H Est GFR ( Amer) 8 L Est GFR (Non-Af Amer) 6 L Glucose 102 Calcium 8.9 Urine Color YELLOW Urine Appearance CLOUDY Urine pH 5.0 Ur Specific [place] 1.023 Urine Protein 100 H Urine Glucose (UA) NEGATIVE Urine Ketones NEGATIVE Urine Blood NEGATIVE Urine Nitrite NEGATIVE Ur Leukocyte Esterase LARGE H Urine WBC (Auto) >182 Urine RBC (Auto) 12 10/20/17 20:52 Troponin I 0.108 Impressions: Venous Doppler Study 10/20/17 14:58 IMPRESSION: NO EVIDENCE DVT OR SVT IN THE RIGHT LEG. Barium Enema w/ Air Contrast, therapeutic 10/26/17 00:00 IMPRESSION: DIVERTICULOSIS OTHERWISE UNREMARKABLE STUDY. KUB X-Ray 10/26/17 00:00 IMPRESSION: No residual fecal material. Chest X-Ray 10/26/17 07:00 IMPRESSION: Interstitial pulmonary edema. Assessment & Plan - Diagnosis (1) Acute on chronic combined systolic and diastolic CHF (congestive heart failure) Is this a current diagnosis for this admission?: Yes Plan: She has responded to the intense daily dialysis and removal of fluids. She is ready for discharge from a renal point of view. (2) ESRD (end stage renal disease) on dialysis Is this a current diagnosis for this admission?: Yes Plan: She is undergoing dialysis currently. It is being supervised to ensure safe and smooth procedure. Vital signs are stable. Orders were discussed with the treating dialysis nurse. Will remove approximately 2 L of fluid as tolerated. Orders given for epo. (3) Hypotension Qualifiers: Hypotension type: other hypotension type Qualified Code(s): I95.89 - Other hypotension Is this a current diagnosis for this admission?: Yes Plan: .Chronic. On Midodrin 10 mg and monitor the response.Advised on compliance with this medication as this is one of the reasons why we are unable to pull off fluids of her as an outpatient. (4) Anemia in chronic kidney disease Qualifiers: Chronic kidney disease stage: on chronic dialysis Qualified Code(s): N18.6 - End stage renal disease; D63.1 - Anemia in chronic kidney disease; D63.1 - Anemia in chronic kidney disease; Z99.2 - Dependence on renal dialysis; Z99.2 - Dependence on renal dialysis; Z99.2 - Dependence on renal dialysis; Z99.2 - Dependence on renal dialysis Is this a current diagnosis for this admission?: Yes Plan: Ordered Procrit. (5) Diabetes mellitus, type 2 Qualifiers: Diabetes mellitus halfway insulin use: with halfway use Diabetes mellitus complication status: with kidney complications Diabetes mellitus complication detail: with chronic kidney disease Chronic kidney disease stage : on chronic dialysis Qualified Code(s): E11.22 - Type 2 diabetes mellitus with diabetic chronic kidney disease; N18.6 - End stage renal disease; Z99.2 - Dependence on renal dialysis; Z99.2 - Dependence on renal dialysis; Z99.2 - Dependence on renal dialysis; N18.6 - End stage renal disease; N18.6 - End stage renal disease; N18.6 - End stage renal disease; Z79.4 - terminal superintendent (current ) use of insulin; Z79.4 - care home (current) use of insulin; Z79.4 - care home (current) use of insulin; Z79.4 - terminal superintendent (current) use of insulin; Z99.2 - Dependence on renal dialysis Is this a current diagnosis for this admission?: Yes Plan: Advised on tight control. (7) Atrial fibrillation Qualifiers: Atrial fibrillation type: chronic Qualified Code(s): I48.2 - Chronic atrial fibrillation Is this a current diagnosis for this admission?: Yes Plan: Presently rate controlled.She is waiting for ideal INR with Coumadin and she is being bridged with heparin in the meanwhile.But given her severe dementia I would be very cautious and optimizing her with ideal Coumadin dosage.I would try to put on a lower dose of Coumadin than an optimal dose therefore.
[2017-10-31] MEDS: EPOETIN ALFA INJ 20000 UNIT/1 ML VIAL (RENAL) IV PRN (11:20)
[2017-10-31] MEDS: METOLAZONE 5 MG TABLET PO SCH ×2 (12:23→21:49)
[2017-10-31] MEDS: ESCITALOPRAM OXALATE 10 MG TABLET PO SCH (12:23)
[2017-10-31] MEDS: PANTOPRAZOLE SODIUM 40 MG VIAL IV SCH (12:24)
[2017-10-31] MEDS: MIDODRINE HCL 5 MG TABLET PO SCH ×3 (12:24→17:17)
[2017-10-31] MEDS: METOPROLOL TARTRATE 25 MG TABLET PO SCH ×2 (12:25→21:49)
[2017-10-31] MEDS: HEPARIN SODIUM,PORCINE/D5W 25,000 UNIT/250 ML RTUINJ IV PRN (14:53)
--- NOTE | 2017-10-31 15:34 | PDOC PROGRESS REPORT ---
Subjective Progress Note for:: 10/31/17 Subjective:: Patient is seen on rounds. She is presently in dialysis. She denies any chest pain, shortness of breath or dyspnea. She denies any fevers or chills. She denies any nausea, vomiting or diarrhea. She denies any significant arthralgias or myalgias. Remaining review of systems are negative. Reason For Visit: PNEUMONIA Physical Exam Vital Signs: Temp Pulse Resp BP Pulse Ox 97.6 F 65 18 102/42 L 100 10/31/17 12:16 10/31/17 13:58 10/31/17 12:16 10/31/17 12:16 10/31/17 12:16 Intake & Output 10/30/17 10/31/17 11/01/17 06:59 06:59 06:59 Intake Total 1067 1043 193 Output Total 2700 0 3900 Balance -1633 1043 -3707 Weight 61.8 kg 63.9 kg General appearance: PRESENT: no acute distress, thin, well-developed Head exam: PRESENT: atraumatic, normocephalic Eye exam: PRESENT: conjunctival injection - left eye with discharge, conjunctiva pink, EOMI, PERRLA. ABSENT: scleral icterus Ear exam: PRESENT: normal external ear exam Mouth exam: PRESENT: moist, tongue midline Neck exam: ABSENT: carotid bruit, JVD, lymphadenopathy, thyromegaly Respiratory exam: PRESENT: clear to auscultation kee. ABSENT: rales, rhonchi, wheezes Cardiovascular exam: PRESENT: RRR. ABSENT: diastolic murmur, rubs, systolic murmur Pulses: PRESENT: normal dorsalis pedis pul Vascular exam: PRESENT: normal capillary refill GI/Abdominal exam: PRESENT: ascites Rectal exam: PRESENT: deferred Extremities exam: PRESENT: full ROM. ABSENT: calf tenderness, clubbing, pedal edema Neurological exam: PRESENT: alert, awake, oriented to person, oriented to place , oriented to time, oriented to situation, CN II-XII grossly intact. ABSENT: motor sensory deficit Psychiatric exam: PRESENT: appropriate affect, normal mood. ABSENT: homicidal ideation, suicidal ideation Skin exam: PRESENT: dry, intact, warm. ABSENT: cyanosis, rash Results Laboratory Results: 10/31/17 04:20 10/31/17 04:20 10/29/17 10/31/17 10/31/17 16:40 04:20 04:20 WBC 3.8 L RBC 2.85 L Hgb 9.3 L Hct 28.6 L MCV 100 H MCH 32.6 MCHC 32.5 RDW 25.2 H Plt Count 303 Sodium 138.1 Potassium 4.9 Chloride 94 L Carbon Dioxide 33 H Anion Gap 11 BUN 54 H Creatinine 6.33 H Est GFR ( Amer) 8 L Est GFR (Non-Af Amer) 6 L Glucose 102 Calcium 8.9 Urine Color YELLOW Urine Appearance CLOUDY Urine pH 5.0 Ur Specific [place] 1.023 Urine Protein 100 H Urine Glucose (UA) NEGATIVE Urine Ketones NEGATIVE Urine Blood NEGATIVE Urine Nitrite NEGATIVE Ur Leukocyte Esterase LARGE H Urine WBC (Auto) >182 Urine RBC (Auto) 12 10/20/17 20:52 Troponin I 0.108 Impressions: Venous Doppler Study 10/20/17 14:58 IMPRESSION: NO EVIDENCE DVT OR SVT IN THE RIGHT LEG. Barium Enema w/ Air Contrast, therapeutic 10/26/17 00:00 IMPRESSION: DIVERTICULOSIS OTHERWISE UNREMARKABLE STUDY. KUB X-Ray 10/26/17 00:00 IMPRESSION: No residual fecal material. Chest X-Ray 10/26/17 07:00 IMPRESSION: Interstitial pulmonary edema. Assessment & Plan - Diagnosis (1) Acute on chronic combined systolic and diastolic CHF (congestive heart failure) Is this a current diagnosis for this admission?: Yes Plan: Presently appears euvolemic (2) Anemia Is this a current diagnosis for this admission?: Yes Plan: Stable (3) Diabetes mellitus, type 2 Qualifiers: Diabetes mellitus intermediate project manager insulin use: with senior living use Diabetes mellitus complication status: with kidney complications Diabetes mellitus complication detail: with chronic kidney disease Chronic kidney disease stage : on chronic dialysis Qualified Code(s): E11.22 - Type 2 diabetes mellitus with diabetic chronic kidney disease; N18.6 - End stage renal disease; Z99.2 - Dependence on renal dialysis; Z99.2 - Dependence on renal dialysis; Z99.2 - Dependence on renal dialysis; N18.6 - End stage renal disease; N18.6 - End stage renal disease; N18.6 - End stage renal disease; Z79.4 - care home (current ) use of insulin; Z79.4 - long term care pharmacist (current) use of insulin; Z79.4 - care home (current) use of insulin; Z79.4 - long term care pharmacist (current) use of insulin; Z99.2 - Dependence on renal dialysis Is this a current diagnosis for this admission?: Yes Plan: Continue current medications and sliding scale coverage (4) Atrial fibrillation with rapid ventricular response Is this a current diagnosis for this admission?: Yes Plan: Rate controlled (5) H/O prosthetic mitral valve Is this a current diagnosis for this admission?: Yes Plan: INR subtherapeutic continue IV heparin . Increase warfarin to 10 mg today (6) End stage renal disease Is this a current diagnosis for this admission?: Yes Plan: Continue dialysis per Dr Nelson - Time Time Spent with patient: 25-34 minutes Medications reviewed and adjusted accordingly: Yes Anticipated discharge: Home with Homehealth - Inpatient Certification Based on my medical assessment, after consideration of the patient's comorbidities, presenting symptoms, or acuity I expect that the services needed warrant INPATIENT care.: Yes
[2017-10-31] MEDS: DIGOXIN 0.125 MG TABLET PO SCH (15:42)
[2017-10-31] MEDS: GENTAMICIN SULFATE 0.3% OPH SOLN 5 ML OU SCH ×2 (18:28→21:52)
[2017-10-31] MEDS: WARFARIN SODIUM 7.5 MG TABLET PO SCH (21:49)
[2017-10-31] MEDS: LORAZEPAM 1 MG TABLET PO PRN (21:50)
[2017-10-31] MEDS: ATORVASTATIN CALCIUM 20 MG TABLET PO SCH (21:50)
[2017-11-01] MEDS: GENTAMICIN SULFATE 0.3% OPH SOLN 5 ML OU SCH ×6 (02:00→21:16)
[2017-11-01 05:35] LABS: INTERNATIONAL RATION (INR) 1.32
[2017-11-01 05:36] LABS: PARTIAL THROMBOPLASTIN TIME 70.8 SEC (23.5-35.8)
[2017-11-01] MEDS ORDERED: PROMETHAZINE HCL 6.25 MG/5 ML SYRUP 60 ML PO PRN (07:42)
[2017-11-01] MEDS: PANTOPRAZOLE SODIUM 40 MG VIAL IV SCH (09:46)
[2017-11-01] MEDS: METOPROLOL TARTRATE 25 MG TABLET PO SCH ×2 (09:48→21:16)
[2017-11-01] MEDS: MIDODRINE HCL 5 MG TABLET PO SCH ×3 (09:48→17:28)
[2017-11-01] MEDS: ESCITALOPRAM OXALATE 10 MG TABLET PO SCH (09:48)
[2017-11-01] MEDS: METOLAZONE 5 MG TABLET PO SCH ×2 (09:48→21:16)
[2017-11-01] MEDS: HEPARIN SODIUM,PORCINE/D5W 25,000 UNIT/250 ML RTUINJ IV PRN (15:13)
--- NOTE | 2017-11-01 16:39 | PDOC PROGRESS REPORT ---
Subjective Progress Note for:: 11/01/17 Subjective:: Pt is feeling a little sleepy today, she got an ativan last night for agitation , had some nausea this am but after eating felt better without treatment. No chest pain or difficulty breathing. Her appetite is good now. She does not that she is constipated. No fever or chills. She does not feel fluid overloaded. Reason For Visit: PNEUMONIA Physical Exam Vital Signs: Temp Pulse Resp BP Pulse Ox 98.0 F 74 18 107/47 L 100 11/01/17 11:19 11/01/17 14:00 11/01/17 11:19 11/01/17 11:19 11/01/17 11:19 Intake & Output 10/31/17 11/01/17 11/02/17 06:59 06:59 06:59 Intake Total 1043 725 375 Output Total 0 3900 Balance 1043 -3175 375 Weight 63.9 kg 61.6 kg General appearance: PRESENT: no acute distress, cooperative, thin Head exam: PRESENT: atraumatic, normocephalic Eye exam: PRESENT: conjunctiva pink, EOMI. ABSENT: scleral icterus Mouth exam: PRESENT: moist, neck supple Respiratory exam: PRESENT: decreased breath sounds, unlabored. ABSENT: rales, rhonchi, wheezes Cardiovascular exam: PRESENT: RRR, systolic murmur Pulses: PRESENT: normal radial pulses GI/Abdominal exam: PRESENT: normal bowel sounds, soft. ABSENT: distended, tenderness Rectal exam: PRESENT: deferred Extremities exam: ABSENT: joint swelling, pedal edema Neurological exam: PRESENT: alert, awake, oriented to person, oriented to place , oriented to situation, CN II-XII grossly intact Psychiatric exam: PRESENT: appropriate affect. ABSENT: anxious Skin exam: PRESENT: dry, warm Results Laboratory Results: 10/31/17 04:20 10/31/17 04:20 10/20/17 20:52 Troponin I 0.108 Impressions: Venous Doppler Study 10/20/17 14:58 IMPRESSION: NO EVIDENCE DVT OR SVT IN THE RIGHT LEG. Barium Enema w/ Air Contrast, therapeutic 10/26/17 00:00 IMPRESSION: DIVERTICULOSIS OTHERWISE UNREMARKABLE STUDY. KUB X-Ray 10/26/17 00:00 IMPRESSION: No residual fecal material. Chest X-Ray 10/26/17 07:00 IMPRESSION: Interstitial pulmonary edema. Assessment & Plan - Diagnosis (1) Acute on chronic combined systolic and diastolic CHF (congestive heart failure) Is this a current diagnosis for this admission?: Yes Plan: Patient is euvolemic currently. sHe was admitted with diastolic heart failure exacerbation. Will continue current care and monitor closely. (2) Diabetes mellitus, type 2 Qualifiers: Diabetes mellitus halfway insulin use: with landscape nurseryman use Diabetes mellitus complication status: with kidney complications Diabetes mellitus complication detail: with chronic kidney disease Chronic kidney disease stage : on chronic dialysis Qualified Code(s): E11.22 - Type 2 diabetes mellitus with diabetic chronic kidney disease; N18.6 - End stage renal disease; Z99.2 - Dependence on renal dialysis; Z99.2 - Dependence on renal dialysis; Z99.2 - Dependence on renal dialysis; N18.6 - End stage renal disease; N18.6 - End stage renal disease; N18.6 - End stage renal disease; Z79.4 - generating plant superintendent (current ) use of insulin; Z79.4 - halfway (current) use of insulin; Z79.4 - halfway (current) use of insulin; Z79.4 - generating plant superintendent (current) use of insulin; Z99.2 - Dependence on renal dialysis Is this a current diagnosis for this admission?: Yes Plan: We will continue current care and attempt to maintain tight blood pressure control as she will tolerate. (3) Atrial fibrillation with RVR Is this a current diagnosis for this admission?: Yes Plan: Patient is currently rate controlled. She is on a heparin drip and Coumadin for anticoagulation for both this and her prosthetic valve. INR is currently not therapeutic. No active bleeding. (4) End stage renal disease Is this a current diagnosis for this admission?: Yes Plan: Patient is being followed by nephrology and is being dialyzed per their recommendations. (5) H/O prosthetic mitral valve Is this a current diagnosis for this admission?: Yes Plan: As her INR has been subtherapeutic due to discontinuation of Coumadin due to rectal bleeding she remains on the heparin drip which is being monitored by nurse per protocol. Will continue with current warfarin is 7.5 mg nightly and will check INR in the morning. (6) Anemia Qualifiers: Anemia type: other cause Is this a current diagnosis for this admission?: Yes Plan: Patient has multifactorial anemia, related to chronic kidney disease also related to acute blood loss during this hospitalization. She had rectal bleeding on warfarin. We are following her H&H which is now stable. No further transfusion indicated. We are also monitoring the INR daily. - Time Time Spent with patient: 25-34 minutes Medications reviewed and adjusted accordingly: Yes - Inpatient Certification Based on my medical assessment, after consideration of the patient's comorbidities, presenting symptoms, or acuity I expect that the services needed warrant INPATIENT care.: Yes I certify that my determination is in accordance with my understanding of Medicare's requirements for reasonable and necessary INPATIENT services [42 CFR 412.3e].: Yes Medical Necessity: Significant Comorbidiites Make Outpatient Treatment Too Risky , Need Close Monitoring Due to Risk of Patient Decompensation, Risk of Complication if Not Cared For in Hospital Post Hospital Care: D/C Interior Decorator Paperhanging Documentation
[2017-11-01] MEDS: WARFARIN SODIUM 7.5 MG TABLET PO SCH (21:16)
[2017-11-01] MEDS: ATORVASTATIN CALCIUM 20 MG TABLET PO SCH (21:16)
[2017-11-02] MEDS: GENTAMICIN SULFATE 0.3% OPH SOLN 5 ML OU SCH ×6 (01:24→22:13)
[2017-11-02] MEDS: LORAZEPAM 1 MG TABLET PO PRN ×2 (03:28→23:27)
[2017-11-02 05:40] LABS: INTERNATIONAL RATION (INR) 1.57; PROTHROMBIN TIME 19.6 SEC (11.4-15.4)
[2017-11-02 05:42] LABS: PARTIAL THROMBOPLASTIN TIME 67.4 SEC (23.5-35.8)
[2017-11-02 05:43] LABS: HEMATOCRIT 28.3 % (36.0-47.0); MEAN CORPUSCULAR HEMOGLOBIN 32.1 pg (27.0-33.4); MEAN CORPUSCULAR VOLUME 100 fl (80-97); PLATELET COUNT 316 10^3/uL (150-450); RED BLOOD COUNT 2.82 10^6/uL (3.72-5.28); RED CELL DISTRIBUTION WIDTH 24.4 % (11.5-14.0); WHITE BLOOD COUNT 4.2 10^3/uL (4.0-10.5)
[2017-11-02 05:53] LABS: ANION GAP 14 (5-19); BLOOD UREA NITROGEN 62 mg/dL (7-20); CALCIUM 8.9 mg/dL (8.4-10.2); CARBON DIOXIDE 29 mmol/L (22-30); CHLORIDE 93 mmol/L (98-107); GLUCOSE 113 mg/dL (75-110); POTASSIUM 5.4 mmol/L (3.6-5.0); SODIUM 135.8 mmol/L (137-145)
[2017-11-02] MEDS: MIDODRINE HCL 5 MG TABLET PO SCH ×3 (10:59→18:00)
[2017-11-02] MEDS: ESCITALOPRAM OXALATE 10 MG TABLET PO SCH (10:59)
[2017-11-02] MEDS: PANTOPRAZOLE SODIUM 40 MG VIAL IV SCH (10:59)
[2017-11-02] MEDS: METOPROLOL TARTRATE 25 MG TABLET PO SCH ×2 (11:00→22:09)
[2017-11-02] MEDS: METOLAZONE 5 MG TABLET PO SCH ×2 (11:00→22:13)
[2017-11-02] MEDS: HEPARIN SODIUM,PORCINE/D5W 25,000 UNIT/250 ML RTUINJ IV PRN (11:01)
--- NOTE | 2017-11-02 12:00 | PDOC PROGRESS REPORT ---
Subjective Progress Note for:: 11/02/17 Subjective:: Patient got a good night sleep last night. Her appetite is pretty good. No nausea or vomiting or abdominal pain. She does not recall any bleeding recently. No chest pain. Mild shortness of breath which she states she gets sometimes when she is not on a dialysis day. She would like to move around a little bit help from staff. She thinks she is moving her bowels without difficulty. Reason For Visit: PNEUMONIA Physical Exam Vital Signs: Temp Pulse Resp BP Pulse Ox 98.0 F 66 17 106/56 L 97 11/02/17 03:31 11/02/17 07:00 11/02/17 03:31 11/02/17 03:31 11/02/17 03:31 Intake & Output 11/01/17 11/02/17 11/03/17 06:59 06:59 06:59 Intake Total 725 1223 Output Total 3900 Balance -3175 1223 Weight 61.6 kg 61.4 kg General appearance: PRESENT: no acute distress, cooperative, thin Head exam: PRESENT: atraumatic, normocephalic Eye exam: PRESENT: conjunctiva pink, EOMI. ABSENT: scleral icterus Ear exam: PRESENT: normal external ear exam Mouth exam: PRESENT: neck supple Neck exam: ABSENT: lymphadenopathy Respiratory exam: PRESENT: rales, unlabored. ABSENT: rhonchi, wheezes Cardiovascular exam: PRESENT: RRR. ABSENT: systolic murmur Pulses: PRESENT: normal radial pulses GI/Abdominal exam: PRESENT: normal bowel sounds, soft. ABSENT: distended, firm , tenderness Rectal exam: PRESENT: deferred Extremities exam: ABSENT: pedal edema, tenderness Musculoskeletal exam: PRESENT: normal inspection Neurological exam: PRESENT: alert, awake, oriented to person, oriented to place , oriented to situation Psychiatric exam: PRESENT: appropriate affect. ABSENT: anxious Skin exam: PRESENT: dry, warm Results Laboratory Results: 11/02/17 04:22 11/02/17 04:22 11/02/17 11/02/17 04:22 04:22 WBC 4.2 RBC 2.82 L Hgb 9.0 L Hct 28.3 L MCV 100 H MCH 32.1 MCHC 32.0 RDW 24.4 H Plt Count 316 Sodium 135.8 L Potassium 5.4 H Chloride 93 L Carbon Dioxide 29 Anion Gap 14 BUN 62 H Creatinine 6.06 H Est GFR ( Amer) 8 L Est GFR (Non-Af Amer) 7 L Glucose 113 H Calcium 8.9 10/20/17 20:52 Troponin I 0.108 Impressions: Venous Doppler Study 10/20/17 14:58 IMPRESSION: NO EVIDENCE DVT OR SVT IN THE RIGHT LEG. Barium Enema w/ Air Contrast, therapeutic 10/26/17 00:00 IMPRESSION: DIVERTICULOSIS OTHERWISE UNREMARKABLE STUDY. KUB X-Ray 10/26/17 00:00 IMPRESSION: No residual fecal material. Chest X-Ray 10/26/17 07:00 IMPRESSION: Interstitial pulmonary edema. Assessment & Plan - Diagnosis (1) Acute on chronic combined systolic and diastolic CHF (congestive heart failure) Is this a current diagnosis for this admission?: Yes Plan: Overall improving. Breathing is improving. Fluid status is improved as well. Continue current medication management includes metoprolol digoxin and Zaroxolyn , and continue current dialysis plan. (2) Atrial fibrillation with RVR Is this a current diagnosis for this admission?: Yes (3) End stage renal disease Is this a current diagnosis for this admission?: Yes Plan: Patient will continue on dialysis per nephrology. From their perspective she is ready for discharge. Struggle with hypotension which makes dialysis a little bit complicated sometimes. For this reason she is on midodrine and this will continue. Her potassium was slightly elevated today we will recheck this afternoon to assure that it is not increasing. (4) H/O prosthetic mitral valve Is this a current diagnosis for this admission?: Yes Plan: Patient had some acute bleeding earlier in the hospitalization and her warfarin was discontinued. She her bleeding has now discontinued. And she is on a heparin drip as a bridge to therapeutic INR. Her INR continues to increase but is not yet at goal and so we will continue her warfarin at current dose 7.5 nightly and will recheck INR again in the morning. I spoke with the nurse about the heparin drip and there are no changes to be made today. (5) Anemia Qualifiers: Anemia type: other cause Is this a current diagnosis for this admission?: Yes Plan: Stable. No active bleeding. - Time Time Spent with patient: 15-24 minutes - Inpatient Certification Based on my medical assessment, after consideration of the patient's comorbidities, presenting symptoms, or acuity I expect that the services needed warrant INPATIENT care.: Yes I certify that my determination is in accordance with my understanding of Medicare's requirements for reasonable and necessary INPATIENT services [42 CFR 412.3e].: Yes Medical Necessity: Significant Comorbidiites Make Outpatient Treatment Too Risky , Need Close Monitoring Due to Risk of Patient Decompensation, Risk of Complication if Not Cared For in Hospital Post Hospital Care: D/C Foot Doctor Documentation
[2017-11-02 14:03] LABS: ANION GAP 13 (5-19); BLOOD UREA NITROGEN 69 mg/dL (7-20); CALCIUM 8.8 mg/dL (8.4-10.2); CARBON DIOXIDE 28 mmol/L (22-30); CHLORIDE 92 mmol/L (98-107); GLUCOSE 89 mg/dL (75-110); POTASSIUM 5.8 mmol/L (3.6-5.0); SODIUM 133.4 mmol/L (137-145)
[2017-11-02] MEDS: DIGOXIN 0.125 MG TABLET PO SCH (15:31)
[2017-11-02] MEDS: ATORVASTATIN CALCIUM 20 MG TABLET PO SCH (22:13)
[2017-11-02] MEDS: WARFARIN SODIUM 7.5 MG TABLET PO SCH (22:13)
[2017-11-02] MEDS: ACETAMINOPHEN 325 MG TABLET PO PRN (23:27)
[2017-11-03] MEDS: GENTAMICIN SULFATE 0.3% OPH SOLN 5 ML OU SCH ×6 (01:36→21:33)
[2017-11-03 06:20] LABS: HEMATOCRIT 28.1 % (36.0-47.0); HEMOGLOBIN 9.1 g/dL (12.0-15.5); MEAN CORPUSCULAR HEMOGLOBIN 32.2 pg (27.0-33.4); MEAN CORPUSCULAR HGB CONC 32.3 g/dL (32.0-36.0); MEAN CORPUSCULAR VOLUME 100 fl (80-97); PLATELET COUNT 322 10^3/uL (150-450); RED BLOOD COUNT 2.82 10^6/uL (3.72-5.28); RED CELL DISTRIBUTION WIDTH 23.9 % (11.5-14.0)
[2017-11-03 06:28] LABS: INTERNATIONAL RATION (INR) 1.84; PROTHROMBIN TIME 22.1 SEC (11.4-15.4)
[2017-11-03 06:29] LABS: PARTIAL THROMBOPLASTIN TIME 75.9 SEC (23.5-35.8)
[2017-11-03 06:46] LABS: ANION GAP 19 (5-19); BLOOD UREA NITROGEN 81 mg/dL (7-20); CALCIUM 8.3 mg/dL (8.4-10.2); CARBON DIOXIDE 23 mmol/L (22-30); CHLORIDE 90 mmol/L (98-107); GLUCOSE 77 mg/dL (75-110); SODIUM 131.7 mmol/L (137-145)
[2017-11-03] MEDS ORDERED: HEPARIN SODIUM,PORCINE/D5W 25,000 UNIT/250 ML RTUINJ IV SCH (07:00)
[2017-11-03 07:12] LABS: POTASSIUM 6.4 mmol/L (3.6-5.0)
[2017-11-03] MEDS: MIDODRINE HCL 5 MG TABLET PO SCH ×3 (08:29→18:08)
[2017-11-03] MEDS: EPOETIN ALFA INJ 20000 UNIT/1 ML VIAL (RENAL) IV PRN (10:16)
--- NOTE | 2017-11-03 12:26 | PDOC PROGRESS REPORT ---
Subjective Progress Note for:: 11/03/17 Reason For Visit: Patient was seen on dialysis today.She is undergoing dialysis without any issues.Vital signs are stable.She denies any history of chest pain or shortness of breath.She has gained approximately 4 L over the weekend.Labs and medications were reviewed. Orders were discussed with the treating dialysis nurse. Physical Exam Vital Signs: Temp Pulse Resp BP Pulse Ox 98.5 F 69 16 115/59 L 91 L 11/03/17 07:40 11/03/17 07:40 11/03/17 07:40 11/03/17 07:40 11/03/17 07:40 Intake & Output 11/02/17 11/03/17 11/04/17 06:59 06:59 06:59 Intake Total 1223 1487 Balance 1223 1487 Weight 61.4 kg 62.9 kg General appearance: PRESENT: no acute distress Respiratory exam: PRESENT: clear to auscultation kee. ABSENT: crackles, rhonchi Cardiovascular exam: PRESENT: +S1, +S2, systolic murmur GI/Abdominal exam: PRESENT: normal bowel sounds, soft. ABSENT: organomegaly, tenderness Neurological exam: PRESENT: awake, oriented to person Results Laboratory Results: 11/03/17 05:14 11/03/17 05:14 11/02/17 11/03/17 11/03/17 12:40 05:14 05:14 WBC 4.0 RBC 2.82 L Hgb 9.1 L Hct 28.1 L MCV 100 H MCH 32.2 MCHC 32.3 RDW 23.9 H Plt Count 322 Sodium 133.4 L 131.7 L Potassium 5.8 H 6.4 H* Chloride 92 L 90 L Carbon Dioxide 28 23 Anion Gap 13 19 BUN 69 H 81 H Creatinine 6.26 H 7.46 H Est GFR ( Amer) 8 L 6 L Est GFR (Non-Af Amer) 6 L 5 L Glucose 89 77 Calcium 8.8 8.3 L 11/01/17 11:40 Clean Catch Midstream Urine Culture - Final Yeast, Not Nellie Albicans 10/20/17 20:52 Troponin I 0.108 Impressions: Venous Doppler Study 10/20/17 14:58 IMPRESSION: NO EVIDENCE DVT OR SVT IN THE RIGHT LEG. Barium Enema w/ Air Contrast, therapeutic 10/26/17 00:00 IMPRESSION: DIVERTICULOSIS OTHERWISE UNREMARKABLE STUDY. KUB X-Ray 10/26/17 00:00 IMPRESSION: No residual fecal material. Chest X-Ray 10/26/17 07:00 IMPRESSION: Interstitial pulmonary edema. Assessment & Plan - Diagnosis (1) Acute on chronic combined systolic and diastolic CHF (congestive heart failure) Is this a current diagnosis for this admission?: Yes Plan: Stable. She is ready for discharge from a renal point of view. (2) ESRD (end stage renal disease) on dialysis Is this a current diagnosis for this admission?: Yes Plan: She is undergoing dialysis currently. She has a high potassium of 6.4 and I discussed the consequences about that. She should respond to the dialysis today. She should have her diet closely watched. It is being supervised to ensure safe and smooth procedure. Vital signs are stable. Orders were discussed with the treating dialysis nurse. Will remove approximately 4 L of fluid as tolerated. Orders given for epo. (3) Hypotension Qualifiers: Hypotension type: other hypotension type Qualified Code(s): I95.89 - Other hypotension Is this a current diagnosis for this admission?: Yes Plan: .Chronic. On Midodrin 10 mg and monitor the response.Advised on compliance with this medication as this is one of the reasons why we are unable to pull off fluids of her as an outpatient. (4) Anemia in chronic kidney disease Qualifiers: Chronic kidney disease stage: on chronic dialysis Qualified Code(s): N18.6 - End stage renal disease; D63.1 - Anemia in chronic kidney disease; D63.1 - Anemia in chronic kidney disease; Z99.2 - Dependence on renal dialysis; Z99.2 - Dependence on renal dialysis; Z99.2 - Dependence on renal dialysis; Z99.2 - Dependence on renal dialysis Is this a current diagnosis for this admission?: Yes Plan: Ordered Procrit. (5) Diabetes mellitus, type 2 Qualifiers: Diabetes mellitus watermelon inspector insulin use: with watermelon inspector use Diabetes mellitus complication status: with kidney complications Diabetes mellitus complication detail: with chronic kidney disease Chronic kidney disease stage : on chronic dialysis Qualified Code(s): E11.22 - Type 2 diabetes mellitus with diabetic chronic kidney disease; N18.6 - End stage renal disease; Z99.2 - Dependence on renal dialysis; Z99.2 - Dependence on renal dialysis; Z99.2 - Dependence on renal dialysis; N18.6 - End stage renal disease; N18.6 - End stage renal disease; N18.6 - End stage renal disease; Z79.4 - [facility] (current ) use of insulin; Z79.4 - [facility] (current) use of insulin; Z79.4 - watermelon inspector (current) use of insulin; Z79.4 - [facility] (current) use of insulin; Z99.2 - Dependence on renal dialysis Is this a current diagnosis for this admission?: Yes Plan: Advised on tight control. (7) Atrial fibrillation Qualifiers: Atrial fibrillation type: chronic Qualified Code(s): I48.2 - Chronic atrial fibrillation Is this a current diagnosis for this admission?: Yes Plan: Presently rate controlled.She is waiting for ideal INR with Coumadin and she is being bridged with heparin in the meanwhile.But given her severe dementia I would be very cautious and optimizing her with ideal Coumadin dosage.I would try to put on a lower dose of Coumadin than an optimal dose therefore. (9) Hyperkalemia Plan: Advised on the consequences of hypertension including cardiac arrest. She should respond to today's dialysis.
[2017-11-03] MEDS ORDERED: HEPARIN SOD (PORCINE) 1,000 UNIT/ML 10 ML VIAL ONE (12:45)
[2017-11-03] MEDS: PANTOPRAZOLE SODIUM 40 MG VIAL IV SCH (13:32)
[2017-11-03] MEDS: METOPROLOL TARTRATE 25 MG TABLET PO SCH ×2 (13:34→21:33)
[2017-11-03] MEDS: METOLAZONE 5 MG TABLET PO SCH ×2 (13:35→21:33)
[2017-11-03] MEDS: ESCITALOPRAM OXALATE 10 MG TABLET PO SCH (13:36)
--- NOTE | 2017-11-03 15:02 | PDOC PROGRESS REPORT ---
Subjective Progress Note for:: 11/03/17 Subjective:: I saw patient in dialysis today. States that her breathing is better today, no cough, no sputum, no fever or chills. No chest pain or palpitations. Her appetite is fair. She does not recall whether she has moved her bowels. No abdominal pain nausea or vomiting today. She is a little bit sleepy due to dialysis. Reason For Visit: PNEUMONIA Physical Exam Vital Signs: Temp Pulse Resp BP Pulse Ox 98.5 F 91 16 115/59 L 91 L 11/03/17 07:40 11/03/17 14:00 11/03/17 07:40 11/03/17 07:40 11/03/17 07:40 Intake & Output 11/02/17 11/03/17 11/04/17 06:59 06:59 06:59 Intake Total 1223 1487 200 Balance 1223 1487 200 Weight 61.4 kg 62.9 kg General appearance: PRESENT: no acute distress, cooperative, thin Head exam: PRESENT: atraumatic, normocephalic Eye exam: PRESENT: conjunctiva pink. ABSENT: scleral icterus Mouth exam: PRESENT: moist Respiratory exam: PRESENT: decreased breath sounds, unlabored. ABSENT: rales, rhonchi, wheezes Cardiovascular exam: PRESENT: irregular rhythm. ABSENT: tachycardia GI/Abdominal exam: PRESENT: normal bowel sounds, soft. ABSENT: distended, firm , tenderness Extremities exam: ABSENT: +1 edema Neurological exam: PRESENT: alert, awake, oriented to person, oriented to place , oriented to situation Psychiatric exam: PRESENT: appropriate affect. ABSENT: anxious Skin exam: PRESENT: dry, warm Results Laboratory Results: 11/03/17 05:14 11/03/17 05:14 11/03/17 11/03/17 05:14 05:14 WBC 4.0 RBC 2.82 L Hgb 9.1 L Hct 28.1 L MCV 100 H MCH 32.2 MCHC 32.3 RDW 23.9 H Plt Count 322 Sodium 131.7 L Potassium 6.4 H* Chloride 90 L Carbon Dioxide 23 Anion Gap 19 BUN 81 H Creatinine 7.46 H Est GFR ( Amer) 6 L Est GFR (Non-Af Amer) 5 L Glucose 77 Calcium 8.3 L 11/01/17 11:40 Clean Catch Midstream Urine Culture - Final Yeast, Not Nellie Albicans 10/20/17 20:52 Troponin I 0.108 Impressions: Venous Doppler Study 10/20/17 14:58 IMPRESSION: NO EVIDENCE DVT OR SVT IN THE RIGHT LEG. Barium Enema w/ Air Contrast, therapeutic 10/26/17 00:00 IMPRESSION: DIVERTICULOSIS OTHERWISE UNREMARKABLE STUDY. KUB X-Ray 10/26/17 00:00 IMPRESSION: No residual fecal material. Chest X-Ray 10/26/17 07:00 IMPRESSION: Interstitial pulmonary edema. Assessment & Plan - Diagnosis (1) Acute on chronic combined systolic and diastolic CHF (congestive heart failure) Is this a current diagnosis for this admission?: Yes Plan: Patient is back on her regular dialysis schedule and heart failure is stable. (2) Atrial fibrillation with RVR Is this a current diagnosis for this admission?: Yes Plan: Rate is well controlled on metoprolol. She is on heparin drip as a bridge to therapeutic INR with warfarin. Today INR is less than 2 and so we will continue warfarin and heparin drip. I am decreasing the warfarin dose to 6 mg nightly. Of note the food service cashier caring for this patient recommends a subtherapeutic INR secondary to bleeding risk given her dementia. May need to speak with cardiology about optimal warfarin dosing in the setting. (3) End stage renal disease Is this a current diagnosis for this admission?: Yes Plan: Nephrology following, continue dialysis, she continues on a hemodialysis diet (4) H/O prosthetic mitral valve Is this a current diagnosis for this admission?: Yes Plan: She is being anticoagulated with heparin as a bridge to therapeutic warfarin. Please see A. fib above. (5) Anemia Qualifiers: Anemia type: other cause Is this a current diagnosis for this admission?: Yes Plan: Anemia of chronic disease. Stable. - Time Time Spent with patient: 25-34 minutes Medications reviewed and adjusted accordingly: Yes Anticipated discharge: Home with Homehealth - Inpatient Certification Based on my medical assessment, after consideration of the patient's comorbidities, presenting symptoms, or acuity I expect that the services needed warrant INPATIENT care.: Yes I certify that my determination is in accordance with my understanding of Medicare's requirements for reasonable and necessary INPATIENT services [42 CFR 412.3e].: Yes Medical Necessity: Need Close Monitoring Due to Risk of Patient Decompensation, Risk of Complication if Not Cared For in Hospital
[2017-11-03] MEDS: HEPARIN SODIUM,PORCINE/D5W 25,000 UNIT/250 ML RTUINJ IV PRN (16:20)
--- NOTE | 2017-11-03 20:12 | Progress Note ---
Provider Note Provider Note: Patient seen this evening. She was readmitted. Nephrology concern that patient cannot tolerate Coumadin. However patient has mechanical mitral and mechanical aortic valve and also has atrial fibrillation. INR is should be between 2.5-3.5. However because of concern about bleeding risk, we feel that we could lower the INR range to 2.5-3 range. Patient does understand that there may be increased risk of bleeding. Overall prognosis is guarded. Please note patient had multiple admissions recently.
[2017-11-03] MEDS: ATORVASTATIN CALCIUM 20 MG TABLET PO SCH (21:33)
[2017-11-03] MEDS: WARFARIN SODIUM 3 MG TABLET PO SCH (21:33)
[2017-11-04] MEDS: GENTAMICIN SULFATE 0.3% OPH SOLN 5 ML OU SCH ×6 (02:48→21:25)
[2017-11-04 06:56] LABS: INTERNATIONAL RATION (INR) 1.98; PROTHROMBIN TIME 23.5 SEC (11.4-15.4)
[2017-11-04 06:58] LABS: PARTIAL THROMBOPLASTIN TIME 93.2 SEC (23.5-35.8)
[2017-11-04 09:21] LABS: ANION GAP 14 (5-19); BLOOD UREA NITROGEN 59 mg/dL (7-20); CALCIUM 8.6 mg/dL (8.4-10.2); CARBON DIOXIDE 30 mmol/L (22-30); CHLORIDE 94 mmol/L (98-107); GLUCOSE 84 mg/dL (75-110); SODIUM 137.5 mmol/L (137-145)
--- NOTE | 2017-11-04 10:00 | PDOC CONSULTATION ---
Consultation Consult Date: 11/03/17 Attending physician:: KOBY LYON Consult reason:: Chronic anticoagulation History of Present Illness Admission Date/PCP: 10/20/17 18:20 CHRIS BENEDICT MD Patient complains of: General debility and weakness History of Present Illness: TAMMY BUCKLEY is a 77 year old female. This patient presents to the emergency room with complaints of increased leg swelling and difficulty breathing. She was just recently discharged from the hospital on October 13. She denies any chest pain nausea vomiting. She does have history significant for atrial fibrillation as well as mechanical aortic and mitral valve replacement. She was felt to have decompensated diastolic heart failure and she received dialysis to help adjust her fluid balance. It was recommended for her to be discharged to rehabilitation however patient refused and insisted on going home with her spouse. This history obtained by hospitalist was reviewed and confirmed. Again patient on repeated questioning denied any chest pain. She now complains of marked general weakness and debility. Patient known to me from multiple previous hospitalization. Past Medical History Cardiac Medical History: Reports: Atrial Fibrillation, Congestive Heart Failure - Systolic and diastolic, Myocardial Infarction, Hyperlipidema, Hypertension, Heart Murmur - Aortic and mitral valve replacement. Denies: Coronary Artery Disease Pulmonary Medical History: Reports: Chronic Obstructive Pulmonary Disease (COPD) , Pneumonia Denies: Asthma, Bronchitis Neurological Medical History: Denies: Seizures Endocrine Medical History: Reports: Diabetes Mellitus Type 2 Renal/ Medical History: Reports: End Stage Renal Disease Musculoskeltal Medical History: Reports: Arthritis, Gout Psychiatric Medical History: Reports: Dementia Denies: Depression Hematology: Denies: Anemia Past Surgical History Past Surgical History: Reports: None, Hysterectomy, Orthopedic Surgery - Back surgery 2, Valve Replacement - Mitral and aortic valve replacement, mechanical heart valves, Other - EGD, colonoscopy, right IJV PermCath Social History Information Source: Patient Smoking Status: Former Smoker Cigarettes Packs Per Day: 0.5 Number of Years Smokin Last Time Smoked: 10/19/17 Frequency of Alcohol Use: None Hx Recreational Drug Use: No Drugs: None Hx Prescription Drug Abuse: No - Advance Directive Resuscitation Status: Full Code Family History Family History: COPD, DM, Hypertension Parental Family History Reviewed: Yes Children Family History Reviewed: Yes Sibling(s) Family History Reviewed.: Yes Medication/Allergy Home Medications: Ferrous Sulfate [Iron] 325 mg PO BID 10/06/17 Pantoprazole Sodium [Protonix] 40 mg PO DAILY 10/06/17 Digoxin [Lanoxin 0.125 mg Tablet] 0.0625 mg PO Q48H MDD NOT STARTED YET Escitalopram Oxalate [Lexapro 10 mg Tablet] 20 mg PO DAILY 10/20/17 Lorazepam [Ativan 1 mg Tablet] 1 mg PO Q6HP PRN 10/20/17 Metolazone [Zaroxolyn 5 Mg Tablet] 5 mg PO Q12 10/20/17 Metoprolol Succinate [Toprol Xl 25 mg Tab.sr] 25 mg PO Q12 10/20/17 Midodrine HCl [Proamatine 5 mg Tablet] 10 mg PO TID 10/20/17 Warfarin Sodium [Coumadin 7.5 mg Tablet] 7.5 mg PO SUTUTHSA@2200 10/20/17 Allergies/Adverse Reactions: Penicillins Allergy (Severe, Verified 10/20/17 15:33) Swelling of hands and/or feet vancomycin [Vancomycin] Adverse Reaction (Intermediate, Verified 10/20/17 15:33) Swelling of hands and/or feet hydrochlorothiazide [From Dyazide] Adverse Reaction (Verified 10/20/17 15:33) Swelling of hands and/or feet triamterene [From Dyazide] Adverse Reaction (Verified 10/20/17 15:33) Swelling of hands and/or feet Review of Systems Review of Systems: Please see history of present illness and past medical history as wall. Constitutional: No fever or chills reported. Patient has noted mild general fatigue and tiredness. She also claims general debility. Head : No recent chronic headaches, recent head injury. Eyes: No recent eye pain, diplopia, redness, discharge, acute visual changes. Ears: No recent chronic ear pain, acute hearing loss, ear discharge. Oral cavity: No recent ulcerations, bleeding, oral cavity discomfort. Neck: No recent acute neck pain reported. Hematologic: No recent easy bruising or bleeding or hematologic malignancy reported. Lymphatic: No recent lymphatic malignancy, chronic lymphadenopathy reported yet Cardiovascular system review: See history of present illness. Respiratory system review: No recent chronic cough, hemoptysis, blood clots in the lungs reported. Shortness of breath on exertion Gastrointestinal system review: Negative for any recent acute or chronic abdominal pain, hematemesis, melena, recent change in bowel habits. Genitourinary system review: No recent acute or chronic hematuria, flank pain, UTI etc. reported. Skin system review: Negative for any recent abnormal bruising, no rash, no pruritus reported. Neurologic: No prior history of strokes, mini strokes, seizure disorder. Psychologic: No history of major psychosis or major depression reported. Musculoskeletal: Minor aches and pains reported. No acute joint swelling reported. Endocrine: No recent polyuria, polydipsia, recent heat or cold intolerance. Physical Exam Vital Signs: Temp Pulse Resp BP Pulse Ox 97.9 F 88 15 108/45 L 100 11/03/17 15:09 11/03/17 19:00 11/03/17 16:07 11/03/17 16:07 11/03/17 16:07 Intake & Output 11/02/17 11/03/17 11/04/17 06:59 06:59 06:59 Intake Total 1223 1487 600 Output Total 3431 Balance 1223 1487 -2831 Weight 61.4 kg 62.9 kg Exam: GENERAL: well-nourished and in no acute distress. Alert and oriented x 2 HEAD: Atraumatic, normocephalic. EYES: Pupils equal round and reactive to light, extraocular movements intact, sclera anicteric, conjunctiva are normal. ENT: TMs normal, nares patent, oropharynx clear without exudates. Moist mucous membranes. No oral ulcerations or bleeding gums noted NECK: supple without lymphadenopathy. Trachea is central. No cervical or axillary lymphadenopathy noted. Carotids are 2+, JVD WNL LUNGS: Respiration seems nonlabored, no significant accessory muscle action noted. Breath sounds clear to auscultation bilaterally and equal noted. No wheezes rales or rhonchi noted. No significant dullness noted on percussion. CHEST: Palpation of the chest wall shows no significant chest wall tenderness. No other significant abnormalities noted. HEART: [place] ALL AROUND PRESSER, No PSH, 2/6 MICHEAL aortic area, 1/6 camacho systolic murmur mitral area, no rubs, no gallops. Prosthetic valve sounds are crisp. ABDOMEN: Soft, no significant tenderness appreciated, normoactive bowel sounds. No guarding, no rebound. No rigidity noted . No masses appreciated. EXTREMITIES: Pedal pulses are 1-2+, no calf tenderness noted. No clubbing or cyanosis. negative pedal edema noted NEUROLOGICAL: Focused neurological exam showed no significant neurologic deficit. Normal speech, no focal weakness appreciated. PSYCH: Normal mood, normal affect. Judgment and insight not assessed. SKIN: No significant ecchymosis, skin is noted to be warm. MUSCULOSKELETAL EXAM: No significant acute joint swelling noted. Results Laboratory Results: 11/03/17 05:14 11/03/17 05:14 11/03/17 11/03/17 05:14 05:14 WBC 4.0 RBC 2.82 L Hgb 9.1 L Hct 28.1 L MCV 100 H MCH 32.2 MCHC 32.3 RDW 23.9 H Plt Count 322 Sodium 131.7 L Potassium 6.4 H* Chloride 90 L Carbon Dioxide 23 Anion Gap 19 BUN 81 H Creatinine 7.46 H Est GFR ( Amer) 6 L Est GFR (Non-Af Amer) 5 L Glucose 77 Calcium 8.3 L 10/20/17 20:52 Troponin I 0.108 EKG Comments: Previous EKG reviewed. It shows atrial fibrillation, right bundle branch block pattern, heart rate somewhat on the high side. Impressions: Venous Doppler Study 10/20/17 14:58 IMPRESSION: NO EVIDENCE DVT OR SVT IN THE RIGHT LEG. Barium Enema w/ Air Contrast, therapeutic 10/26/17 00:00 IMPRESSION: DIVERTICULOSIS OTHERWISE UNREMARKABLE STUDY. KUB X-Ray 10/26/17 00:00 IMPRESSION: No residual fecal material. Chest X-Ray 10/26/17 07:00 IMPRESSION: Interstitial pulmonary edema. Assessment & Plan - Diagnosis (1) Mechanical heart valve present Is this a current diagnosis for this admission?: Yes (2) Atrial fibrillation with RVR Is this a current diagnosis for this admission?: Yes (3) Chronic anticoagulation Is this a current diagnosis for this admission?: Yes (4) End stage renal disease Is this a current diagnosis for this admission?: Yes (5) Anemia in chronic kidney disease Qualifiers: Chronic kidney disease stage: on chronic dialysis Qualified Code(s): N18.6 - End stage renal disease; D63.1 - Anemia in chronic kidney disease; D63.1 - Anemia in chronic kidney disease; Z99.2 - Dependence on renal dialysis; Z99.2 - Dependence on renal dialysis; Z99.2 - Dependence on renal dialysis; Z99.2 - Dependence on renal dialysis Is this a current diagnosis for this admission?: Yes (6) Diabetes mellitus, type 2 Qualifiers: Diabetes mellitus long-term insulin use: with long-term use Diabetes mellitus complication status: with kidney complications Diabetes mellitus complication detail: with chronic kidney disease Chronic kidney disease stage : on chronic dialysis Qualified Code(s): E11.22 - Type 2 diabetes mellitus with diabetic chronic kidney disease; N18.6 - End stage renal disease; N18.6 - End stage renal disease; N18.6 - End stage renal disease; N18.6 - End stage renal disease; Z79.4 - cloth cutting machine operator (current) use of insulin; Z79.4 - cloth cutting machine operator ( current) use of insulin; Z79.4 - cloth cutting machine operator (current) use of insulin; Z79.4 - penitentiary (current) use of insulin; Z99.2 - Dependence on renal dialysis; Z99.2 - Dependence on renal dialysis; Z99.2 - Dependence on renal dialysis; Z99.2 - Dependence on renal dialysis Is this a current diagnosis for this admission?: Yes (7) Diastolic CHF Qualifiers: Heart failure chronicity: chronic Qualified Code(s): I50.32 - Chronic diastolic (congestive) heart failure Is this a current diagnosis for this admission?: Yes (8) COPD (chronic obstructive pulmonary disease) Qualifiers: COPD type: unspecified COPD Qualified Code(s): J44.9 - Chronic obstructive pulmonary disease, unspecified Is this a current diagnosis for this admission?: Yes - Notes Notes: Consulted because of chronic anticoagulation issues. Patient has mechanical aortic and mitral valve. Patient also has atrial fibrillation. Patient therefore at high risk for thromboembolic phenomena. Chronic anticoagulation should be continued. Have noted concern of the planing machine operator who has the responsibility of seeing this patient on a regular basis since patient is on end -stage renal disease. We will therefore defer final decision with issues regarding anticoagulation to the planing machine operator. Otherwise patient's primary care attending could also make this decision. However according to recommendations, the least minimum INR should be between 2.5-3.5. Of course individual adjustment can be made based on Patient specific reasons. As regards atrial fibrillation with RVR, this is a chronic problem. It has always been difficult to get under control with this patient. Previous referral to [facility] with placement of a pacemaker and ablation therapy was declined. As regards congestive heart failure: Clinical exam suggest that she is in a compensated state. - Time Time Spent: 30 to 50 Minutes - More than 50% of the time spent coordinating care , discussing management plans with involved caregivers. Management plans discussed with involved personnels. Medical decision making was of moderate to high complexity, patient's has multiple comorbidities. Medications reviewed and adjusted accordingly: Yes
[2017-11-04] MEDS: ESCITALOPRAM OXALATE 10 MG TABLET PO SCH (10:04)
[2017-11-04] MEDS: METOPROLOL TARTRATE 25 MG TABLET PO SCH ×2 (10:04→21:25)
[2017-11-04] MEDS: METOLAZONE 5 MG TABLET PO SCH ×2 (10:04→21:25)
[2017-11-04] MEDS: MIDODRINE HCL 5 MG TABLET PO SCH ×3 (10:04→17:12)
[2017-11-04] MEDS: PANTOPRAZOLE SODIUM 40 MG VIAL IV SCH (10:05)
--- NOTE | 2017-11-04 11:42 | PDOC PROGRESS REPORT ---
Subjective Progress Note for:: 11/04/17 Subjective:: Patient seems to be doing better with gradual improvement. Pt is denying any chest arm or neck discomfort. Patient denying any PND, orthopnea. Patient denied any sustained palpitations, dizziness, syncope, near syncope. Patient denying any fever chills. Patient denying any other significant discomfort. Patient is atrial fibrillation with controlled ventricular response. Review of systems: Rest review of systems negative. Medications: Medications have been reviewed. Reason For Visit: PNEUMONIA Physical Exam Vital Signs: Temp Pulse Resp BP Pulse Ox 99.0 F 65 18 100/46 L 96 11/04/17 07:24 11/04/17 07:24 11/04/17 07:24 11/04/17 07:24 11/04/17 10:22 Intake & Output 11/03/17 11/04/17 11/05/17 06:59 06:59 06:59 Intake Total 1487 939 Output Total 3431 Balance 1487 -2492 Weight 62.9 kg 61.8 kg Exam: GENERAL: well-nourished and in no acute distress. Alert and oriented x3 HEAD: Atraumatic, normocephalic. EYES: Pupils equal round and reactive to light, extraocular movements intact, sclera anicteric, conjunctiva are normal. ENT: TMs normal, nares patent, oropharynx clear without exudates. Moist mucous membranes. No oral ulcerations or bleeding gums noted NECK: supple without lymphadenopathy. Trachea is central. No cervical or axillary lymphadenopathy noted. Carotids are 2+, JVD WNL LUNGS: Respiration seems nonlabored, no significant accessory muscle action noted. Breath sounds clear to auscultation bilaterally and equal noted. No wheezes rales or rhonchi noted. No significant dullness noted on percussion. CHEST: Palpation of the chest wall shows no significant chest wall tenderness. No other significant abnormalities noted. Dialysis catheter noted left-sided chest HEART: [place] CORRECTIVE AND MANUAL ARTS THERAPIST, No PSH, 2/6 MICHEAL aortic area, 1/6 camacho systolic murmur mitral area, no rubs, no gallops. Prosthetic valve sounds are noted to be crisp. ABDOMEN: Soft, no significant tenderness appreciated, normoactive bowel sounds. No guarding, no rebound. No rigidity noted . No masses appreciated. EXTREMITIES: Pedal pulses are 1-2+, no calf tenderness noted. No clubbing or cyanosis. negative pedal edema noted NEUROLOGICAL: Focused neurological exam showed no significant neurologic deficit. Normal speech, no focal weakness appreciated. PSYCH: Normal mood, normal affect. Judgment and insight within normal limits. SKIN: No significant ecchymosis, skin is noted to be warm. MUSCULOSKELETAL EXAM: No significant acute joint swelling noted. Results Laboratory Results: 11/03/17 05:14 11/04/17 05:39 11/04/17 11/04/17 04:53 05:39 Sodium 137.5 Potassium 5.0 Chloride 94 L Carbon Dioxide 30 Anion Gap 14 BUN 59 H Creatinine 5.70 H Est GFR ( Amer) 9 L Est GFR (Non-Af Amer) 7 L Glucose 84 Calcium 8.6 Stool Occult Blood POSITIVE 10/20/17 20:52 Troponin I 0.108 EKG Comments: Telemetry strip shows atrial fibrillation with bundle branch block type pattern. Impressions: Venous Doppler Study 10/20/17 14:58 IMPRESSION: NO EVIDENCE DVT OR SVT IN THE RIGHT LEG. Barium Enema w/ Air Contrast, therapeutic 10/26/17 00:00 IMPRESSION: DIVERTICULOSIS OTHERWISE UNREMARKABLE STUDY. KUB X-Ray 10/26/17 00:00 IMPRESSION: No residual fecal material. Chest X-Ray 10/26/17 07:00 IMPRESSION: Interstitial pulmonary edema. Assessment & Plan - Diagnosis (1) Mechanical heart valve present Is this a current diagnosis for this admission?: Yes (2) Atrial fibrillation with RVR Is this a current diagnosis for this admission?: Yes (3) Chronic anticoagulation Is this a current diagnosis for this admission?: Yes (4) End stage renal disease Is this a current diagnosis for this admission?: Yes (5) Anemia in chronic kidney disease Qualifiers: Chronic kidney disease stage: on chronic dialysis Qualified Code(s): N18.6 - End stage renal disease; D63.1 - Anemia in chronic kidney disease; D63.1 - Anemia in chronic kidney disease; Z99.2 - Dependence on renal dialysis; Z99.2 - Dependence on renal dialysis; Z99.2 - Dependence on renal dialysis; Z99.2 - Dependence on renal dialysis Is this a current diagnosis for this admission?: Yes (6) Diabetes mellitus, type 2 Qualifiers: Diabetes mellitus terminal clerk insulin use: with terminal clerk use Diabetes mellitus complication status: with kidney complications Diabetes mellitus complication detail: with chronic kidney disease Chronic kidney disease stage : on chronic dialysis Qualified Code(s): E11.22 - Type 2 diabetes mellitus with diabetic chronic kidney disease; N18.6 - End stage renal disease; Z99.2 - Dependence on renal dialysis; Z99.2 - Dependence on renal dialysis; Z99.2 - Dependence on renal dialysis; N18.6 - End stage renal disease; N18.6 - End stage renal disease; N18.6 - End stage renal disease; Z79.4 - intermediate (current ) use of insulin; Z79.4 - intermediate (current) use of insulin; Z79.4 - intermediate (current) use of insulin; Z79.4 - oil heaterman (current) use of insulin; Z99.2 - Dependence on renal dialysis Is this a current diagnosis for this admission?: Yes (7) Diastolic CHF Qualifiers: Heart failure chronicity: chronic Qualified Code(s): I50.32 - Chronic diastolic (congestive) heart failure Is this a current diagnosis for this admission?: Yes (8) COPD (chronic obstructive pulmonary disease) Qualifiers: COPD type: unspecified COPD Qualified Code(s): J44.9 - Chronic obstructive pulmonary disease, unspecified Is this a current diagnosis for this admission?: Yes - Notes Notes: INR goal could be lowered between 2.5-3. Agree with heparin bridge, in view of high risk nature. As regards other cardiac problem, patient is stable. Could increase beta- val dose as needed for control of heart rate. As regards CHF, patient seems compensated. As regards mechanical heart valve in aortic and mitral position, clinically this seems to be functioning normally. - Time Time with patient: 15-25 minutes - More than 50% of the time spent coordinating care, discussing management plans with involved caregivers. Management plans discussed with involved personnels. Medical decision making was of moderate to high complexity, patient's has multiple comorbidities. Medications reviewed and adjusted accordingly: Yes
[2017-11-04] MEDS: HEPARIN SODIUM,PORCINE/D5W 25,000 UNIT/250 ML RTUINJ IV PRN (14:54)
--- NOTE | 2017-11-04 15:45 | PDOC PROGRESS REPORT ---
Subjective Progress Note for:: 11/04/17 Subjective:: The patient is a 77-year-old -[place] female who presented to the emergency room with increased leg swelling and shortness of breath. Her past medical history significant for end-stage renal disease on hemodialysis. She also has a mechanical aortic valve, atrial fibrillation and known diastolic congestive heart failure. She was admitted to the hospital and followed closely by nephrology. They have been dialyzing her to balance her manage her fluid balance. Overall she is improved. Unfortunately her hospitalizations been complicated by the development of lower GI bleeding. She had a barium enema which revealed evidence of diverticulosis. Her bleeding stopped uneventfully. Her Coumadin was restarted and she was bridged with heparin. She has been kept in the hospital due to the fact that her INR has been subtherapeutic and the fact that she has mechanical valves. Cardiology has been involved and recommended lowering her INR goal from 3.0-3.5. The patient apparently lives at home and the discharge plan as far as I can tell us to go home with some home health services. I spoke to Dr. Nelson today. He has known this patient along time and states that she has rather significant underlying dementia. He states that she is noncompliant with medical therapy and oftentimes forgets to take her Coumadin at all and her INR will get as low as 1 or she takes too much and it gets quite high. He is leery of sending her home on a therapeutic dose back to her current setting. He does not feel like the family monitors this closely enough and states that her is demented as well. His recommendation would be to either place the patient in the longterm facility where we can closely manage her medications. If the option is to go back home he recommends sending her out on a lower dose than what would make her therapeutic due to the dangers involved if she does not take her medication appropriately, especially if she takes too much. I am going to discuss this with the discharge planners. Today when I saw the patient she is resting in the bed. She is very pleasant and answers questions appropriately. She is awake alert and oriented 2. She has no complaints today that she is able to vocalize other than she feels quite weak. Reason For Visit: PNEUMONIA Physical Exam Vital Signs: Temp Pulse Resp BP Pulse Ox 98.2 F 68 18 120/45 L 100 11/04/17 11:44 11/04/17 14:00 11/04/17 07:24 11/04/17 11:44 11/04/17 11:44 Intake & Output 11/03/17 11/04/17 11/05/17 06:59 06:59 06:59 Intake Total 1487 939 150 Output Total 3431 Balance 1487 -2492 150 Weight 62.9 kg 61.8 kg General appearance: PRESENT: no acute distress, thin Head exam: PRESENT: atraumatic, normocephalic Mouth exam: PRESENT: moist, tongue midline Respiratory exam: PRESENT: clear to auscultation kee. ABSENT: rales, rhonchi, wheezes Cardiovascular exam: PRESENT: clicks, RRR, +S1, +S2 GI/Abdominal exam: PRESENT: normal bowel sounds, soft. ABSENT: distended, guarding, mass, organolmegaly, rebound, tenderness Rectal exam: PRESENT: deferred Extremities exam: PRESENT: full ROM. ABSENT: calf tenderness, clubbing, pedal edema Neurological exam: PRESENT: alert, awake, oriented to person, oriented to time, CN II-XII grossly intact. ABSENT: motor sensory deficit Psychiatric exam: PRESENT: appropriate affect, normal mood. ABSENT: homicidal ideation, suicidal ideation Skin exam: PRESENT: dry, intact, warm. ABSENT: cyanosis, rash Results Laboratory Results: 11/03/17 05:14 11/04/17 05:39 11/04/17 11/04/17 04:53 05:39 Sodium 137.5 Potassium 5.0 Chloride 94 L Carbon Dioxide 30 Anion Gap 14 BUN 59 H Creatinine 5.70 H Est GFR ( Amer) 9 L Est GFR (Non-Af Amer) 7 L Glucose 84 Calcium 8.6 Stool Occult Blood POSITIVE 10/20/17 20:52 Troponin I 0.108 Impressions: Venous Doppler Study 10/20/17 14:58 IMPRESSION: NO EVIDENCE DVT OR SVT IN THE RIGHT LEG. Barium Enema w/ Air Contrast, therapeutic 10/26/17 00:00 IMPRESSION: DIVERTICULOSIS OTHERWISE UNREMARKABLE STUDY. KUB X-Ray 10/26/17 00:00 IMPRESSION: No residual fecal material. Chest X-Ray 10/26/17 07:00 IMPRESSION: Interstitial pulmonary edema. Assessment & Plan - Diagnosis (1) Acute on chronic combined systolic and diastolic CHF (congestive heart failure) Is this a current diagnosis for this admission?: Yes Plan: I believe she is scheduled to be dialyzed tomorrow. Nephrology is managing her volume status. We appreciate their assistance. (2) ESRD (end stage renal disease) on dialysis Is this a current diagnosis for this admission?: Yes Plan: The patient follows with Dr. Nelson he knows this patient well. She has underlying dementia and is noncompliant with her medications at home. (3) Anemia Qualifiers: Anemia type: other cause Is this a current diagnosis for this admission?: Yes Plan: Multifactorial in nature. The patient has known anemia of chronic disease due to her end-stage renal disease. She did have some transient rectal bleeding which is since resolved. Her hemoglobin is stable (4) Hypotension Qualifiers: Hypotension type: other hypotension type Qualified Code(s): I95.89 - Other hypotension Is this a current diagnosis for this admission?: Yes Plan: Continue midodrine. (5) Mechanical heart valve present Is this a current diagnosis for this admission?: Yes Plan: Currently on heparin drip for now. Will discuss with discharge planning Dr. Nelson's recommendations. We may just send her home once her INR gets to be about 3 unless the family wants to place the patient.. (6) Diabetes mellitus, type 2 Qualifiers: Diabetes mellitus managing member insulin use: with managing member use Diabetes mellitus complication status: with kidney complications Diabetes mellitus complication detail: with chronic kidney disease Chronic kidney disease stage : on chronic dialysis Qualified Code(s): E11.22 - Type 2 diabetes mellitus with diabetic chronic kidney disease; N18.6 - End stage renal disease; Z99.2 - Dependence on renal dialysis; Z99.2 - Dependence on renal dialysis; Z99.2 - Dependence on renal dialysis; N18.6 - End stage renal disease; N18.6 - End stage renal disease; N18.6 - End stage renal disease; Z79.4 - supervisor frame assembly (current ) use of insulin; Z79.4 - retirement (current) use of insulin; Z79.4 - supervisor frame assembly (current) use of insulin; Z79.4 - retirement (current) use of insulin; Z99.2 - Dependence on renal dialysis Is this a current diagnosis for this admission?: Yes Plan: This may have been documented in error. The patient is not on any diabetes medication as an outpatient. She is not receiving any coverage here in the hospital and her blood sugars have been perfectly normal. (7) Full code status Is this a current diagnosis for this admission?: Yes - Time Time Spent with patient: 25-34 minutes - Inpatient Certification Medical Necessity: Other - Inpatient hospitalization remains necessary. The patient is in the hospital right now waiting for her INR to become therapeutic. Dr. Nelson is indicated that he has grave concerns about the patient's ability patient and the patient's family's ability to monitor her Coumadin at home. She has a history of sporadic use with low INRs and high INRs. He states that he would be very reluctant to send her home on a therapeutic dose. His recommendation due to all of her issues would be placement in a longterm facility where we can closely monitor her Coumadin and INR's
[2017-11-04] MEDS: DIGOXIN 0.125 MG TABLET PO SCH (17:12)
--- NOTE | 2017-11-04 20:04 | PDOC PROGRESS REPORT ---
Subjective Progress Note for:: 11/04/17 Subjective:: Patient was laying comfortably in her bed. She had no complaints at the time. Currently waiting on INR to be therapeutic. Patient will most likely be noncompliant or take too much Coumadin. Reason For Visit: PNEUMONIA Physical Exam Vital Signs: Temp Pulse Resp BP Pulse Ox 98.2 F 82 18 123/73 97 11/04/17 15:13 11/04/17 15:13 11/04/17 15:13 11/04/17 15:13 11/04/17 15:45 Intake & Output 11/03/17 11/04/17 11/05/17 06:59 06:59 06:59 Intake Total 1487 939 750 Output Total 3431 Balance 1487 -2492 750 Weight 62.9 kg 61.8 kg General appearance: PRESENT: no acute distress, well-developed, well-nourished Mouth exam: PRESENT: moist, neck supple Neck exam: PRESENT: full ROM. ABSENT: JVD Respiratory exam: PRESENT: accessory muscle use, clear to auscultation kee. ABSENT: crackles, rales, rhonchi, wheezes Cardiovascular exam: PRESENT: +S1, +S2, systolic murmur GI/Abdominal exam: PRESENT: normal bowel sounds, soft. ABSENT: organomegaly, tenderness Extremities exam: ABSENT: pedal edema, tenderness, +1 edema, +2 edema Musculoskeletal exam: PRESENT: normal inspection. ABSENT: tenderness Neurological exam: PRESENT: alert, awake, oriented to person, oriented to place , oriented to time, oriented to situation Psychiatric exam: PRESENT: appropriate affect, normal mood Skin exam: PRESENT: dry, intact, warm. ABSENT: cyanosis Results Laboratory Results: 11/03/17 05:14 11/04/17 05:39 11/04/17 11/04/17 04:53 05:39 Sodium 137.5 Potassium 5.0 Chloride 94 L Carbon Dioxide 30 Anion Gap 14 BUN 59 H Creatinine 5.70 H Est GFR ( Amer) 9 L Est GFR (Non-Af Amer) 7 L Glucose 84 Calcium 8.6 Stool Occult Blood POSITIVE 10/20/17 20:52 Troponin I 0.108 Impressions: Venous Doppler Study 10/20/17 14:58 IMPRESSION: NO EVIDENCE DVT OR SVT IN THE RIGHT LEG. Barium Enema w/ Air Contrast, therapeutic 10/26/17 00:00 IMPRESSION: DIVERTICULOSIS OTHERWISE UNREMARKABLE STUDY. KUB X-Ray 10/26/17 00:00 IMPRESSION: No residual fecal material. Chest X-Ray 10/26/17 07:00 IMPRESSION: Interstitial pulmonary edema. Assessment & Plan - Diagnosis (1) Acute on chronic combined systolic and diastolic CHF (congestive heart failure) Is this a current diagnosis for this admission?: Yes Plan: currently stable and resolved (2) End stage renal disease Is this a current diagnosis for this admission?: Yes Plan: will set her up for dialysis tomorrow (3) Anemia in chronic kidney disease Qualifiers: Chronic kidney disease stage: on chronic dialysis Qualified Code(s): N18.6 - End stage renal disease; D63.1 - Anemia in chronic kidney disease; D63.1 - Anemia in chronic kidney disease; Z99.2 - Dependence on renal dialysis; Z99.2 - Dependence on renal dialysis; Z99.2 - Dependence on renal dialysis; Z99.2 - Dependence on renal dialysis Is this a current diagnosis for this admission?: Yes Plan: will look to give epogen tomorrow on dialysis (4) Atrial fibrillation Qualifiers: Atrial fibrillation type: chronic Qualified Code(s): I48.2 - Chronic atrial fibrillation Is this a current diagnosis for this admission?: Yes Plan: Recommend not getting to therapeutic INR while the patient lives at home. She frequently takes too much or no medications at all. Good chance that the patient will take too much Coumadin. (5) Dyspnea Qualifiers: Dyspnea type: orthopnea Qualified Code(s): R06.01 - Orthopnea Plan: resolved (6) Hyperkalemia Plan: will look to do dialysis tomorrow and lower potassium down. (7) Diabetes mellitus, type 2 Qualifiers: Diabetes mellitus detention insulin use: with detention use Diabetes mellitus complication status: with kidney complications Diabetes mellitus complication detail: with chronic kidney disease Chronic kidney disease stage : on chronic dialysis Qualified Code(s): E11.22 - Type 2 diabetes mellitus with diabetic chronic kidney disease; N18.6 - End stage renal disease; Z99.2 - Dependence on renal dialysis; Z99.2 - Dependence on renal dialysis; Z99.2 - Dependence on renal dialysis; N18.6 - End stage renal disease; N18.6 - End stage renal disease; N18.6 - End stage renal disease; Z79.4 - retirement (current ) use of insulin; Z79.4 - business rules analyst (current) use of insulin; Z79.4 - business rules analyst (current) use of insulin; Z79.4 - retirement (current) use of insulin; Z99.2 - Dependence on renal dialysis Is this a current diagnosis for this admission?: Yes
[2017-11-04] MEDS: WARFARIN SODIUM 3 MG TABLET PO SCH (21:25)
[2017-11-04] MEDS: ATORVASTATIN CALCIUM 20 MG TABLET PO SCH (21:25)
[2017-11-05 00:38] LABS: APPEARANCE,URINE CLOUDY; BILIRUBIN,URINE SMALL (NEGATIVE); COLOR,URINE AMBER; GLUCOSE, URINE NEGATIVE (NEGATIVE); KETONES,URINE NEGATIVE (NEGATIVE); LEUKOCYTE ESTERASE,URINE LARGE (NEGATIVE); NITRITE,URINE NEGATIVE (NEGATIVE); PROTEIN,URINE 100 mg/dL (NEGATIVE)
[2017-11-05] MEDS: GENTAMICIN SULFATE 0.3% OPH SOLN 5 ML OU SCH ×5 (05:16→21:16)
[2017-11-05 05:47] LABS: HEMATOCRIT 29.2 % (36.0-47.0); HEMOGLOBIN 9.4 g/dL (12.0-15.5); MEAN CORPUSCULAR HGB CONC 32.4 g/dL (32.0-36.0); MEAN CORPUSCULAR VOLUME 99 fl (80-97); PLATELET COUNT 274 10^3/uL (150-450); RED BLOOD COUNT 2.95 10^6/uL (3.72-5.28); RED CELL DISTRIBUTION WIDTH 23.9 % (11.5-14.0); WHITE BLOOD COUNT 3.9 10^3/uL (4.0-10.5)
[2017-11-05 06:24] LABS: ANION GAP 17 (5-19); BLOOD UREA NITROGEN 77 mg/dL (7-20); CALCIUM 8.8 mg/dL (8.4-10.2); CARBON DIOXIDE 27 mmol/L (22-30); CHLORIDE 93 mmol/L (98-107); GLUCOSE 88 mg/dL (75-110); POTASSIUM 5.6 mmol/L (3.6-5.0); SODIUM 136.8 mmol/L (137-145)
[2017-11-05] MEDS: MIDODRINE HCL 5 MG TABLET PO SCH ×3 (07:58→17:45)
[2017-11-05] MEDS ORDERED: HEPARIN SOD (PORCINE) 1,000 UNIT/ML 10 ML VIAL IV PRN (10:15)
[2017-11-05] MEDS: EPOETIN ALFA INJ 20000 UNIT/1 ML VIAL (RENAL) IV PRN (11:43)
[2017-11-05] MEDS: ESCITALOPRAM OXALATE 10 MG TABLET PO SCH (13:17)
[2017-11-05] MEDS: METOLAZONE 5 MG TABLET PO SCH ×2 (13:18→21:15)
[2017-11-05] MEDS: METOPROLOL TARTRATE 25 MG TABLET PO SCH ×2 (13:18→21:15)
--- NOTE | 2017-11-05 15:28 | PDOC PROGRESS REPORT ---
Subjective Progress Note for:: 11/05/17 Reason For Visit: Patient is seen on dialysis today. She is undergoing dialysis without any issues.She denies any history of chest pain or shortness of breath. She is unable to recognize who I am or where she is. Labs and medications were reviewed. Orders were discussed with the treating dialysis nurse. She is being kept here in the hospital to optimize her INR for a rapid A. fib and prosthetic mitral and aortic heart valve and she is currently being bridged from heparin to Coumadin.In my earlier notes I had opined that this patient was got severe dementia is at the high risk of severe adverse effects from her anticoagulation because of very poor compliance, lack of memory and progressive dementia and extreme fragility who is prone to multiple falls at home. She has got a very poor psychosocial situation with an extremely disabled with Dementia and has a daughter who is unable to comprehend.I discussed this patient with Kylie who is the middleware administrator at [facility] who knows the patient and the family quite well. She has never had a [id number] meeting with her daughter and has only spoken with her on the phone and according to Kylie the daughter has been unable to comprehend most of the suggestions and advice given to her on the phone to look after her aging and disabled parents. With all of this in the background, optimizing her INR with Coumadin is an extremely high risk for this patient who has had multiple falls already at home. This is compounded by the fact that she is chronically hypotensive who does not take her Midodrin.This therefore has led her to multiple falls.Besides that, because she is hypotensive, [facility] has been unable to remove any fluid off and has led to acute on chronic congestive heart failure and rapid A. fib and admissions to the hospital before.Currently she is Hemoccult positive also without a drop in hemoglobin at the moment. Given the complexity, positive Hemoccults, high risk of falls and noncompliance of this patient I would recommend that she be taken off the Coumadin and just be rate controlled with digoxin. One could do later date reconsider a low-dose of Coumadin once her Hemoccult is negative. I would also recommend that she be discussed with the data processing systems project planner to see if she could be discharged to penitentiary as at least there would be some watching over this patient.I discussed this patient extensively with Lizzette Hernandez hospitalist nurse practitioner. Physical Exam Vital Signs: Temp Pulse Resp BP Pulse Ox 98.2 F 73 20 104/61 96 11/05/17 12:03 11/05/17 12:03 11/05/17 12:03 11/05/17 12:03 11/05/17 12:03 Intake & Output 11/04/17 11/05/17 11/06/17 06:59 06:59 06:59 Intake Total 939 1777 237 Output Total 3431 Balance -2492 1777 237 Weight 61.8 kg 62.5 kg General appearance: PRESENT: no acute distress Respiratory exam: PRESENT: clear to auscultation kee. ABSENT: crackles Cardiovascular exam: PRESENT: +S1, +S2, systolic murmur GI/Abdominal exam: PRESENT: normal bowel sounds, soft. ABSENT: organomegaly, tenderness Extremities exam: ABSENT: joint swelling, pedal edema Neurological exam: PRESENT: awake Results Laboratory Results: 11/05/17 04:43 11/05/17 11:25 11/05/17 11/05/17 11/05/17 00:10 04:43 04:43 WBC 3.9 L RBC 2.95 L Hgb 9.4 L Hct 29.2 L MCV 99 H MCH 32.0 MCHC 32.4 RDW 23.9 H Plt Count 274 Sodium 136.8 L Potassium 5.6 H Chloride 93 L Carbon Dioxide 27 Anion Gap 17 BUN 77 H Creatinine 6.97 H Est GFR ( Amer) 7 L Est GFR (Non-Af Amer) 6 L Glucose 88 Calcium 8.8 Magnesium 2.4 H Urine Color PANDA Urine Appearance CLOUDY Urine pH 5.0 Ur Specific [place] 1.020 Urine Protein 100 H Urine Glucose (UA) NEGATIVE Urine Ketones NEGATIVE Urine Blood MODERATE H Urine Nitrite NEGATIVE Ur Leukocyte Esterase LARGE H Urine WBC (Auto) >182 Urine RBC (Auto) 16 11/05/17 11:25 WBC RBC Hgb Hct MCV MCH MCHC RDW Plt Count Sodium Potassium 3.6 D Chloride Carbon Dioxide Anion Gap BUN Creatinine Est GFR ( Amer) Est GFR (Non-Af Amer) Glucose Calcium Magnesium Urine Color Urine Appearance Urine pH Ur Specific [place] Urine Protein Urine Glucose (UA) Urine Ketones Urine Blood Urine Nitrite Ur Leukocyte Esterase Urine WBC (Auto) Urine RBC (Auto) 10/20/17 20:52 Troponin I 0.108 Impressions: Venous Doppler Study 10/20/17 14:58 IMPRESSION: NO EVIDENCE DVT OR SVT IN THE RIGHT LEG. Barium Enema w/ Air Contrast, therapeutic 10/26/17 00:00 IMPRESSION: DIVERTICULOSIS OTHERWISE UNREMARKABLE STUDY. KUB X-Ray 10/26/17 00:00 IMPRESSION: No residual fecal material. Chest X-Ray 10/26/17 07:00 IMPRESSION: Interstitial pulmonary edema. Assessment & Plan - Diagnosis (1) Acute on chronic combined systolic and diastolic CHF (congestive heart failure) Is this a current diagnosis for this admission?: Yes Plan: Stable. She is ready for discharge from a renal point of view. (2) ESRD (end stage renal disease) on dialysis Is this a current diagnosis for this admission?: Yes Plan: She is undergoing dialysis currently. It is being supervised to ensure safe and smooth procedure. Vital signs are stable. Orders were discussed with the treating dialysis nurse. Will remove approximately 2-3 L of fluid as tolerated. Orders given for epo. (3) Hypotension Qualifiers: Hypotension type: other hypotension type Qualified Code(s): I95.89 - Other hypotension Is this a current diagnosis for this admission?: Yes Plan: .Chronic. On Midodrin 10 mg and monitor the response.Advised on compliance with this medication as this is one of the reasons why we are unable to pull off fluids of her as an outpatient. (4) Anemia in chronic kidney disease Qualifiers: Chronic kidney disease stage: on chronic dialysis Qualified Code(s): N18.6 - End stage renal disease; D63.1 - Anemia in chronic kidney disease; D63.1 - Anemia in chronic kidney disease; Z99.2 - Dependence on renal dialysis; Z99.2 - Dependence on renal dialysis; Z99.2 - Dependence on renal dialysis; Z99.2 - Dependence on renal dialysis Is this a current diagnosis for this admission?: Yes Plan: On Procrit. Please also note that she is Hemoccult positive in the face of heparin bridging over to Coumadin. Recommend that she be taken off all anticoagulation as she is at a very high risk of GI bleeding besides other adverse effects from anticoagulation because she has had multiple falls and has got progressive dementia and is quite disabled. A couple of weeks later once she is Hemoccult negative one could reconsider using low-dose of Coumadin for her A. fib and prosthetic heart valves.This would be much ideal if she is discharged to a penitentiary as her home situation is quite bad. (5) Diabetes mellitus, type 2 Qualifiers: Diabetes mellitus terminal system operator insulin use: with terminal system operator use Diabetes mellitus complication status: with kidney complications Diabetes mellitus complication detail: with chronic kidney disease Chronic kidney disease stage : on chronic dialysis Qualified Code(s): E11.22 - Type 2 diabetes mellitus with diabetic chronic kidney disease; N18.6 - End stage renal disease; N18.6 - End stage renal disease; N18.6 - End stage renal disease; N18.6 - End stage renal disease; Z79.4 - alf (current) use of insulin; Z79.4 - alf ( current) use of insulin; Z79.4 - watermelon inspector (current) use of insulin; Z79.4 - alf (current) use of insulin; Z99.2 - Dependence on renal dialysis; Z99.2 - Dependence on renal dialysis; Z99.2 - Dependence on renal dialysis; Z99.2 - Dependence on renal dialysis Is this a current diagnosis for this admission?: Yes Plan: Advised on tight control. (6) Acute hypoxemic respiratory failure Plan: Secondary to congestive heart failure. She has responded very well to the intense dialysis. (7) Atrial fibrillation Qualifiers: Atrial fibrillation type: chronic Qualified Code(s): I48.2 - Chronic atrial fibrillation Is this a current diagnosis for this admission?: Yes Plan: And prosthetic heart valves. Presently rate controlled.She is waiting for ideal INR with Coumadin and she is being bridged with heparin in the meanwhile.But given her severe dementia , current Hemoccult-positive, severe disability and dementia she is at a high risk of severe adverse effects and therefore I would recommend that the anticoagulation be discontinued and she be discharged on just rate control medications in the form of digoxin possibly.2 weeks after discharge if she is stable and Hemoccult negative, one could consider reintroduction of Coumadin at a lower dose of 5 mg and watched. This would be an ideal if she is discharged to a penitentiary where she could be monitored more closely. Her home situation is quite bad, where she is known to be quite noncompliant and has been known to take more or less of her medications.. (8) H/O prosthetic aortic valve replacement Plan: Stable.Currently being bridged from heparin to Coumadin. She has a high risk of severe complications from anticoagulation and currently she is Hemoccult- positive. Therefore knowing the risk of thromboembolism especially high given her mitral valve besides the aortic valve replacements and her atrial fibrillation I would recommend holding off on anticoagulation for the next couple of weeks. Ideally she should be discharged to penitentiary and 2 weeks into discharge if she is Hemoccult negative one could reintroduce Coumadin at the lower dose of 7 5 mg to keep her INR around 2 and not to the ideal state of between 2.5 and 3. Even that is accompanied by multiple risk and adverse effects but at least she is being watched over at the penitentiary which is not the case if she is discharged home.Extensive discussions were done on this unfortunate and complex patient with Lizzette Hernandez/hospitalist. (9) Hyperkalemia Plan: Advised on low potassium diet..
--- NOTE | 2017-11-05 16:50 | PDOC PROGRESS REPORT ---
Subjective Progress Note for:: 11/05/17 Subjective:: The patient is a 77-year-old -[place] female who presented to the emergency room with increased leg swelling and shortness of breath. Her past medical history significant for end-stage renal disease on hemodialysis. She also has a mechanical aortic valve, atrial fibrillation and known diastolic congestive heart failure. She was admitted to the hospital and followed closely by nephrology. They have been dialyzing her to balance her manage her fluid balance. Overall she is improved. Unfortunately her hospitalizations been complicated by the development of lower GI bleeding. She had a barium enema which revealed evidence of diverticulosis. Her bleeding stopped uneventfully. Her Coumadin was restarted and she was bridged with heparin. She has been kept in the hospital due to the fact that her INR has been subtherapeutic and the fact that she has mechanical valves. Cardiology has been involved and recommended lowering her INR goal from 3.0-3.5. The patient apparently lives at home and the discharge plan as far as I can tell us to go home with some home health services. I spoke to Dr. Nelson today. Please see his dictated note from today for details of his concerns regarding this patient. After talking to him I discussed this with the discharge planners. My personal opinion is that this patient may need a court appointed guardian to help make decisions for herself. I do not know if there any other family members other than the and the daughter that could step up to help make decisions. At this point she is noncompliant with her medications which is severely limiting her ability to have dialysis. When she does not take her Midrodrine at home she becomes volume overloaded due to the fact that her blood pressure is so low that she cannot be dialyzed. This results in recurrent hospitalizations. When she is admitted we then optimize her medically but then send her back and this is become kind of a vicious cycle. Now she has issues with bleeding. She has a Hemoccult positive stool. She is a fall risk and she needs ongoing anticoagulation. Dr. Nelson is recommending that all anticoagulation be stopped. I do believe this patient would benefit from either half-way facility placement where her medications could be appropriately managed or a transition to hospice. She may in the very near future be unable to tolerate further dialysis due to her persistent hypertension. At this point I have discussed this with the discharge planners and hopefully we can get a safer and better plan in place for her prior to discharge. Today when I saw the patient she is resting in the bed. She is very pleasant and answers questions fairly appropriately. She is awake alert and oriented 2. She has no complaints today that she is able to vocalize other than she feels quite weak. Reason For Visit: PNEUMONIA Physical Exam Vital Signs: Temp Pulse Resp BP Pulse Ox 98.1 F 74 22 H 120/77 96 11/05/17 15:29 11/05/17 15:29 11/05/17 15:29 11/05/17 15:29 11/05/17 15:29 Intake & Output 11/04/17 11/05/17 11/06/17 06:59 06:59 06:59 Intake Total 939 1777 237 Output Total 3431 Balance -2492 1777 237 Weight 61.8 kg 62.5 kg General appearance: PRESENT: thin, other - She is pleasantly confused Head exam: PRESENT: atraumatic, normocephalic Eye exam: PRESENT: conjunctiva pink, EOMI, PERRLA. ABSENT: scleral icterus Mouth exam: PRESENT: moist, tongue midline Respiratory exam: PRESENT: clear to auscultation kee. ABSENT: rales, rhonchi, wheezes Cardiovascular exam: PRESENT: RRR. ABSENT: diastolic murmur, rubs, systolic murmur GI/Abdominal exam: PRESENT: normal bowel sounds, soft. ABSENT: distended, guarding, mass, organolmegaly, rebound, tenderness Rectal exam: PRESENT: deferred Extremities exam: PRESENT: full ROM. ABSENT: calf tenderness, clubbing, pedal edema Neurological exam: PRESENT: alert, awake, oriented to person, oriented to place , oriented to time, oriented to situation, CN II-XII grossly intact. ABSENT: motor sensory deficit Psychiatric exam: PRESENT: appropriate affect, normal mood. ABSENT: homicidal ideation, suicidal ideation Skin exam: PRESENT: dry, intact, warm. ABSENT: cyanosis, rash Results Laboratory Results: 11/05/17 04:43 11/05/17 11:25 11/05/17 11/05/17 11/05/17 00:10 04:43 04:43 WBC 3.9 L RBC 2.95 L Hgb 9.4 L Hct 29.2 L MCV 99 H MCH 32.0 MCHC 32.4 RDW 23.9 H Plt Count 274 Sodium 136.8 L Potassium 5.6 H Chloride 93 L Carbon Dioxide 27 Anion Gap 17 BUN 77 H Creatinine 6.97 H Est GFR ( Amer) 7 L Est GFR (Non-Af Amer) 6 L Glucose 88 Calcium 8.8 Magnesium 2.4 H Urine Color PANDA Urine Appearance CLOUDY Urine pH 5.0 Ur Specific [place] 1.020 Urine Protein 100 H Urine Glucose (UA) NEGATIVE Urine Ketones NEGATIVE Urine Blood MODERATE H Urine Nitrite NEGATIVE Ur Leukocyte Esterase LARGE H Urine WBC (Auto) >182 Urine RBC (Auto) 16 11/05/17 11:25 WBC RBC Hgb Hct MCV MCH MCHC RDW Plt Count Sodium Potassium 3.6 D Chloride Carbon Dioxide Anion Gap BUN Creatinine Est GFR ( Amer) Est GFR (Non-Af Amer) Glucose Calcium Magnesium Urine Color Urine Appearance Urine pH Ur Specific [place] Urine Protein Urine Glucose (UA) Urine Ketones Urine Blood Urine Nitrite Ur Leukocyte Esterase Urine WBC (Auto) Urine RBC (Auto) 10/20/17 20:52 Troponin I 0.108 Impressions: Venous Doppler Study 10/20/17 14:58 IMPRESSION: NO EVIDENCE DVT OR SVT IN THE RIGHT LEG. Barium Enema w/ Air Contrast, therapeutic 10/26/17 00:00 IMPRESSION: DIVERTICULOSIS OTHERWISE UNREMARKABLE STUDY. KUB X-Ray 10/26/17 00:00 IMPRESSION: No residual fecal material. Chest X-Ray 10/26/17 07:00 IMPRESSION: Interstitial pulmonary edema. Assessment & Plan - Diagnosis (1) Acute on chronic combined systolic and diastolic CHF (congestive heart failure) Is this a current diagnosis for this admission?: Yes Plan: Nephrology is managing her volume status. I believe her acute exacerbation has resolved. (2) ESRD (end stage renal disease) on dialysis Is this a current diagnosis for this admission?: Yes Plan: The patient follows with Dr. Nelson he knows this patient well. She has underlying dementia and is noncompliant with her medications at home. She is having difficulty tolerating dialysis due to persistent hypotension. Here in the hospital where she is taking her Midodrine they have been able to dialyze her but not optimally. See discussion above (3) Anemia Qualifiers: Anemia type: other cause Is this a current diagnosis for this admission?: Yes Plan: Multifactorial in nature. The patient has known anemia of chronic disease due to her end-stage renal disease. She did have some transient rectal bleeding which is since resolved. Her hemoglobin is stable however her stool is Hemoccult positive. She is at high risk of a GI bleed. At this point I am going to stop her heparin drip. We will continue to monitor her quite closely for signs of bleeding. (4) Hypotension Qualifiers: Hypotension type: other hypotension type Qualified Code(s): I95.89 - Other hypotension Is this a current diagnosis for this admission?: Yes Plan: Continue midodrine. According to Dr. Nelson the patient is noncompliant with this as an outpatient (5) Mechanical heart valve present Is this a current diagnosis for this admission?: Yes Plan: For now I am stopping her heparin drip. We will continue on Coumadin. I do not believe we need to escalate her dosage. Dr. Nelson believes that her anticoagulation should be stopped altogether. We will get the discharge planners involved. I will discuss with Dr. Martines whether an INR goal of 2.0- 2.5 would be sufficient for hospital purposes. It is difficult to just stop anticoagulation when she is not having an active bleed when she is a full code and there are no family members to discuss a transition to palliative care with. She is certainly a fall risk. Certainly she is at risk of bleeding. We may need to get a court appointed guardian or we may need to consider half-way facility placement so that her Coumadin can be properly managed and monitored (6) Diabetes mellitus, type 2 Qualifiers: Diabetes mellitus penitentiary insulin use: with bookkeeping clerk use Diabetes mellitus complication status: with kidney complications Diabetes mellitus complication detail: with chronic kidney disease Chronic kidney disease stage : on chronic dialysis Qualified Code(s): E11.22 - Type 2 diabetes mellitus with diabetic chronic kidney disease; N18.6 - End stage renal disease; Z99.2 - Dependence on renal dialysis; Z99.2 - Dependence on renal dialysis; Z99.2 - Dependence on renal dialysis; N18.6 - End stage renal disease; N18.6 - End stage renal disease; N18.6 - End stage renal disease; Z79.4 - senior living (current ) use of insulin; Z79.4 - mva operator (current) use of insulin; Z79.4 - senior living (current) use of insulin; Z79.4 - mva operator (current) use of insulin; Z99.2 - Dependence on renal dialysis Is this a current diagnosis for this admission?: Yes Plan: This may have been documented in error. The patient is not on any diabetes medication as an outpatient. She is not receiving any coverage here in the hospital and her blood sugars have been perfectly normal. (7) Full code status Is this a current diagnosis for this admission?: Yes - Time Time Spent with patient: 35 or more minutes - This included a long discussion on the phone with Dr. Nelson as well as discussion with my attending physician Dr. Portillo
[2017-11-05 16:59] LABS: INTERNATIONAL RATION (INR) 2.15
[2017-11-05] MEDS ORDERED: PANTOPRAZOLE SODIUM 40 MG VIAL IV SCH (18:00)
--- NOTE | 2017-11-05 19:42 | PDOC PROGRESS REPORT ---
Subjective Progress Note for:: 11/05/17 Subjective:: Pt is denying any chest arm or neck discomfort. Patient denying any PND, orthopnea. Patient denied any sustained palpitations, dizziness, syncope, near syncope. Patient denying any fever chills. Patient denying any other significant discomfort. Patient is atrial fibrillation with controlled ventricular response. No sustained tachycardia or bradycardia arrhythmia noted. Review of systems: Rest review of systems negative. Medications: Medications have been reviewed. Reason For Visit: PNEUMONIA Physical Exam Vital Signs: Temp Pulse Resp BP Pulse Ox 98.1 F 76 22 H 120/77 96 11/05/17 15:29 11/05/17 19:00 11/05/17 15:29 11/05/17 15:29 11/05/17 15:29 Intake & Output 11/04/17 11/05/17 11/06/17 06:59 06:59 06:59 Intake Total 939 1777 605 Output Total 3431 Balance -2492 1777 605 Weight 61.8 kg 62.5 kg Exam: GENERAL: well-nourished and in no acute distress. Alert and oriented x3 HEAD: Atraumatic, normocephalic. EYES: Pupils equal round and reactive to light, extraocular movements intact, sclera anicteric, conjunctiva are normal. ENT: TMs normal, nares patent, oropharynx clear without exudates. Moist mucous membranes. No oral ulcerations or bleeding gums noted NECK: supple without lymphadenopathy. Trachea is central. No cervical or axillary lymphadenopathy noted. Carotids are 2+, JVD WNL LUNGS: Respiration seems nonlabored, no significant accessory muscle action noted. Breath sounds clear to auscultation bilaterally and equal noted. No wheezes rales or rhonchi noted. No significant dullness noted on percussion. CHEST: Palpation of the chest wall shows no significant chest wall tenderness. No other significant abnormalities noted. Dialysis catheter noted right-sided chest. HEART: [place] SOFTWARE QUALITY SPECIALIST, No PSH, 1/6 MICHEAL aortic area, 1/6 camacho systolic murmur mitral area, no rubs, no gallops. Prosthetic valve sounds are noted to be crisp. ABDOMEN: Soft, no significant tenderness appreciated, normoactive bowel sounds. No guarding, no rebound. No rigidity noted . No masses appreciated. EXTREMITIES: Pedal pulses are 1-2+, no calf tenderness noted. No clubbing or cyanosis. negative pedal edema noted NEUROLOGICAL: Focused neurological exam showed no significant neurologic deficit. Normal speech, no focal weakness appreciated. PSYCH: Normal mood, normal affect. Judgment and insight within normal limits. SKIN: No significant ecchymosis, skin is noted to be warm. MUSCULOSKELETAL EXAM: No significant acute joint swelling noted. Results Laboratory Results: 11/05/17 04:43 11/05/17 11:25 11/05/17 11/05/17 11/05/17 00:10 04:43 04:43 WBC 3.9 L RBC 2.95 L Hgb 9.4 L Hct 29.2 L MCV 99 H MCH 32.0 MCHC 32.4 RDW 23.9 H Plt Count 274 Sodium 136.8 L Potassium 5.6 H Chloride 93 L Carbon Dioxide 27 Anion Gap 17 BUN 77 H Creatinine 6.97 H Est GFR ( Amer) 7 L Est GFR (Non-Af Amer) 6 L Glucose 88 Calcium 8.8 Magnesium 2.4 H Urine Color PANDA Urine Appearance CLOUDY Urine pH 5.0 Ur Specific [place] 1.020 Urine Protein 100 H Urine Glucose (UA) NEGATIVE Urine Ketones NEGATIVE Urine Blood MODERATE H Urine Nitrite NEGATIVE Ur Leukocyte Esterase LARGE H Urine WBC (Auto) >182 Urine RBC (Auto) 16 11/05/17 11:25 WBC RBC Hgb Hct MCV MCH MCHC RDW Plt Count Sodium Potassium 3.6 D Chloride Carbon Dioxide Anion Gap BUN Creatinine Est GFR ( Amer) Est GFR (Non-Af Amer) Glucose Calcium Magnesium Urine Color Urine Appearance Urine pH Ur Specific [place] Urine Protein Urine Glucose (UA) Urine Ketones Urine Blood Urine Nitrite Ur Leukocyte Esterase Urine WBC (Auto) Urine RBC (Auto) 10/20/17 20:52 Troponin I 0.108 EKG Comments: Telemetry strips shows atrial fibrillation with bundle branch block pattern. No sustained tachycardia or bradycardia noted. Impressions: Venous Doppler Study 10/20/17 14:58 IMPRESSION: NO EVIDENCE DVT OR SVT IN THE RIGHT LEG. Barium Enema w/ Air Contrast, therapeutic 10/26/17 00:00 IMPRESSION: DIVERTICULOSIS OTHERWISE UNREMARKABLE STUDY. KUB X-Ray 10/26/17 00:00 IMPRESSION: No residual fecal material. Chest X-Ray 10/26/17 07:00 IMPRESSION: Interstitial pulmonary edema. Assessment & Plan - Diagnosis (1) Mechanical heart valve present Is this a current diagnosis for this admission?: Yes (2) Atrial fibrillation with RVR Is this a current diagnosis for this admission?: Yes (3) Chronic anticoagulation Is this a current diagnosis for this admission?: Yes (4) End stage renal disease Is this a current diagnosis for this admission?: Yes (5) Anemia in chronic kidney disease Qualifiers: Chronic kidney disease stage: on chronic dialysis Qualified Code(s): N18.6 - End stage renal disease; D63.1 - Anemia in chronic kidney disease; D63.1 - Anemia in chronic kidney disease; Z99.2 - Dependence on renal dialysis; Z99.2 - Dependence on renal dialysis; Z99.2 - Dependence on renal dialysis; Z99.2 - Dependence on renal dialysis Is this a current diagnosis for this admission?: Yes (6) Diabetes mellitus, type 2 Qualifiers: Diabetes mellitus termite inspector insulin use: with senior living use Diabetes mellitus complication status: with kidney complications Diabetes mellitus complication detail: with chronic kidney disease Chronic kidney disease stage : on chronic dialysis Qualified Code(s): E11.22 - Type 2 diabetes mellitus with diabetic chronic kidney disease; N18.6 - End stage renal disease; N18.6 - End stage renal disease; N18.6 - End stage renal disease; N18.6 - End stage renal disease; Z79.4 - senior care (current) use of insulin; Z79.4 - superintendent marine oil terminal ( current) use of insulin; Z79.4 - superintendent marine oil terminal (current) use of insulin; Z79.4 - superintendent marine oil terminal (current) use of insulin; Z99.2 - Dependence on renal dialysis; Z99.2 - Dependence on renal dialysis; Z99.2 - Dependence on renal dialysis; Z99.2 - Dependence on renal dialysis Is this a current diagnosis for this admission?: Yes (7) Diastolic CHF Qualifiers: Heart failure chronicity: chronic Qualified Code(s): I50.32 - Chronic diastolic (congestive) heart failure Is this a current diagnosis for this admission?: Yes (8) COPD (chronic obstructive pulmonary disease) Qualifiers: COPD type: unspecified COPD Qualified Code(s): J44.9 - Chronic obstructive pulmonary disease, unspecified Is this a current diagnosis for this admission?: Yes - Notes Notes: Atrial fibrillation: Heart rate under better control. Continue patient on chronic anticoagulation patient already on chronic anticoagulation for mechanical prosthetic valve. Agree with heparin bridge in the meantime. Currently subtherapeutic. History of prosthetic mechanical mitral and aortic valve: Clinically seems to be functioning adequately. Maintain chronic Coumadin therapy with INR range between 2.5-3.5. Good lower arranged to between 2.5-3.0 because patient being elderly with increased risk of bleeding. Congestive heart failure: Currently compensated. Patient has diastolic plus systolic dysfunction and also some contribution from right heart failure. Wide-complex tachycardia: Continue with beta-val therapy. Patient to report any syncope or near syncope. Patient has been generally stable from cardiac standpoint but she has significant underlying multiple medical comorbidities. Patient has been generally stable for last several days. We will therefore sign off. Please reconsult if needed. - Time Time with patient: 15-25 minutes - More than 50% of the time spent coordinating care, discussing management plans with involved caregivers. Management plans discussed with involved personnels. Medical decision making was of moderate to high complexity, patient's has multiple comorbidities. Medications reviewed and adjusted accordingly: Yes
[2017-11-05] MEDS: ACETAMINOPHEN 325 MG TABLET PO PRN (20:39)
[2017-11-05] MEDS: ATORVASTATIN CALCIUM 20 MG TABLET PO SCH (21:15)
[2017-11-05] MEDS: WARFARIN SODIUM 3 MG TABLET PO SCH (21:15)
[2017-11-06] MEDS: GENTAMICIN SULFATE 0.3% OPH SOLN 5 ML OU SCH ×6 (02:00→22:12)
[2017-11-06] MEDS: LANSOPRAZOLE 30 MG TAB.RAP.DR PO SCH (06:13)
[2017-11-06] MEDS: MIDODRINE HCL 5 MG TABLET PO SCH ×3 (10:32→17:04)
[2017-11-06] MEDS: ESCITALOPRAM OXALATE 10 MG TABLET PO SCH (10:32)
[2017-11-06] MEDS: METOPROLOL TARTRATE 25 MG TABLET PO SCH ×2 (10:32→22:11)
[2017-11-06] MEDS: METOLAZONE 5 MG TABLET PO SCH ×2 (10:32→22:10)
--- NOTE | 2017-11-06 13:29 | PDOC PROGRESS REPORT ---
<CINTIA GOULD M - Last Filed: 11/06/17 13:23> Subjective Progress Note for:: 11/06/17 Subjective:: currently sitting up comfortably in her chair when I saw her. She was not SOB despite finding her nasal canula sitting on top of her nose. According to the nurse in charge of her care, they are going to contact the daughter to see if everyone is agreeable to place her in a nursing facility for close monitoring. Reason For Visit: PNEUMONIA Physical Exam Vital Signs: Temp Pulse Resp BP Pulse Ox 98.6 F 80 18 112/71 100 11/06/17 11:34 11/06/17 11:34 11/06/17 11:34 11/06/17 11:34 11/06/17 11:34 Intake & Output 11/05/17 11/06/17 11/07/17 06:59 06:59 06:59 Intake Total 1777 1010 237 Output Total 3600 Balance 1777 -2590 237 Weight 62.5 kg 61.9 kg General appearance: PRESENT: no acute distress, well-developed, well-nourished Mouth exam: PRESENT: moist, neck supple Neck exam: PRESENT: full ROM. ABSENT: JVD Respiratory exam: PRESENT: clear to auscultation kee. ABSENT: crackles, rales, rhonchi, wheezes Cardiovascular exam: PRESENT: +S1, +S2, systolic murmur GI/Abdominal exam: PRESENT: normal bowel sounds, soft. ABSENT: organomegaly, tenderness Extremities exam: PRESENT: tenderness. ABSENT: pedal edema, +1 edema, +2 edema Musculoskeletal exam: PRESENT: tenderness. ABSENT: normal inspection Neurological exam: PRESENT: alert, awake, oriented to person, oriented to place , oriented to situation. ABSENT: oriented to time Psychiatric exam: PRESENT: appropriate affect, normal mood Skin exam: PRESENT: dry, intact, warm. ABSENT: cyanosis Results Laboratory Results: 11/05/17 04:43 11/05/17 11:25 10/20/17 20:52 Troponin I 0.108 Impressions: Venous Doppler Study 10/20/17 14:58 IMPRESSION: NO EVIDENCE DVT OR SVT IN THE RIGHT LEG. Barium Enema w/ Air Contrast, therapeutic 10/26/17 00:00 IMPRESSION: DIVERTICULOSIS OTHERWISE UNREMARKABLE STUDY. KUB X-Ray 10/26/17 00:00 IMPRESSION: No residual fecal material. Chest X-Ray 10/26/17 07:00 IMPRESSION: Interstitial pulmonary edema. Assessment & Plan - Diagnosis (1) Acute on chronic combined systolic and diastolic CHF (congestive heart failure) Is this a current diagnosis for this admission?: Yes Plan: looks to have resolved (2) End stage renal disease Is this a current diagnosis for this admission?: Yes Plan: will set her up for dialysis tomorrow (3) Anemia in chronic kidney disease QualifierTitle: Chronic kidney disease stage: on chronic dialysis Qualified Code(s): N18.6 - End stage renal disease; D63.1 - Anemia in chronic kidney disease; D63.1 - Anemia in chronic kidney disease; Z99.2 - Dependence on renal dialysis; Z99.2 - Dependence on renal dialysis; Z99.2 - Dependence on renal dialysis; Z99.2 - Dependence on renal dialysis Is this a current diagnosis for this admission?: Yes Plan: will look to give epogen tomorrow on dialysis, currently has a GI bleed (4) Atrial fibrillation QualifierTitle: Atrial fibrillation type: chronic Qualified Code(s): I48.2 - Chronic atrial fibrillation Is this a current diagnosis for this admission?: Yes Plan: Looking to place in a nursing facility so that she can be placed on Coumadin. (5) Dyspnea QualifierTitle: Dyspnea type: orthopnea Qualified Code(s): R06.01 - Orthopnea Plan: resolved (6) Hyperkalemia Plan: will look to do dialysis tomorrow and lower potassium down. (7) Diabetes mellitus, type 2 QualifierTitle: Diabetes mellitus operations consultant insulin use: with operations consultant use Diabetes mellitus complication status: with kidney complications Diabetes mellitus complication detail: with chronic kidney disease Chronic kidney disease stage: on chronic dialysis Qualified Code(s): E11.22 - Type 2 diabetes mellitus with diabetic chronic kidney disease; N18.6 - End stage renal disease; Z99.2 - Dependence on renal dialysis; Z99.2 - Dependence on renal dialysis; Z99.2 - Dependence on renal dialysis; N18.6 - End stage renal disease ; N18.6 - End stage renal disease; N18.6 - End stage renal disease; Z79.4 - retirement (current) use of insulin; Z79.4 - retirement (current) use of insulin; Z79.4 - card grinder helper (current) use of insulin; Z79.4 - retirement (current) use of insulin; Z99.2 - Dependence on renal dialysis Is this a current diagnosis for this admission?: Yes <SAMUEL KINGSLEY - Last Filed: 11/06/17 17:22> Subjective Reason For Visit: PNEUMONIA Physical Exam Vital Signs: Temp Pulse Resp BP Pulse Ox 98.5 F 65 18 122/44 L 97 11/06/17 15:39 11/06/17 15:39 11/06/17 15:39 11/06/17 15:39 11/06/17 15:39 Intake & Output 11/05/17 11/06/17 11/07/17 06:59 06:59 06:59 Intake Total 1777 1010 237 Output Total 3600 Balance 1777 -2590 237 Weight 62.5 kg 61.9 kg Results Laboratory Results: 11/05/17 04:43 11/05/17 11:25 10/20/17 20:52 Troponin I 0.108 Impressions: Venous Doppler Study 10/20/17 14:58 IMPRESSION: NO EVIDENCE DVT OR SVT IN THE RIGHT LEG. Barium Enema w/ Air Contrast, therapeutic 10/26/17 00:00 IMPRESSION: DIVERTICULOSIS OTHERWISE UNREMARKABLE STUDY. KUB X-Ray 10/26/17 00:00 IMPRESSION: No residual fecal material. Chest X-Ray 10/26/17 07:00 IMPRESSION: Interstitial pulmonary edema. Assessment & Plan - Diagnosis (1) Acute on chronic combined systolic and diastolic CHF (congestive heart failure) Is this a current diagnosis for this admission?: Yes (2) Anemia in chronic kidney disease Qualifiers: Chronic kidney disease stage: on chronic dialysis Qualified Code(s): N18.6 - End stage renal disease; D63.1 - Anemia in chronic kidney disease; D63.1 - Anemia in chronic kidney disease; Z99.2 - Dependence on renal dialysis; Z99.2 - Dependence on renal dialysis; Z99.2 - Dependence on renal dialysis; Z99.2 - Dependence on renal dialysis Is this a current diagnosis for this admission?: Yes (3) Hypotension Qualifiers: Hypotension type: hemodialysis-associated hypotension Qualified Code(s): I95.3 - Hypotension of hemodialysis Is this a current diagnosis for this admission?: Yes Plan: Patient has chronic hypertension and she has been on midodrine. There is also an element of noncompliance. Hypotension is becoming a barrier for her hemodialysis
[2017-11-06] MEDS: DIGOXIN 0.125 MG TABLET PO SCH (17:05)
--- NOTE | 2017-11-06 17:14 | PDOC PROGRESS REPORT ---
Subjective Subjective:: I seen patient sitting up in chair. She is awake alert and oriented 2. She does not have any new complaint at this time Reason For Visit: PNEUMONIA Physical Exam Vital Signs: Temp Pulse Resp BP Pulse Ox 98.5 F 65 18 122/44 L 97 11/06/17 15:39 11/06/17 15:39 11/06/17 15:39 11/06/17 15:39 11/06/17 15:39 Intake & Output 11/05/17 11/06/17 11/07/17 06:59 06:59 06:59 Intake Total 1777 1010 237 Output Total 3600 Balance 1777 -2590 237 Weight 62.5 kg 61.9 kg General appearance: PRESENT: no acute distress Respiratory exam: PRESENT: clear to auscultation kee. ABSENT: rales, rhonchi, wheezes Cardiovascular exam: PRESENT: systolic murmur - 3/6 systolic murmur best heard at the apex GI/Abdominal exam: PRESENT: normal bowel sounds, soft. ABSENT: distended, guarding, mass, organolmegaly, rebound, tenderness Results Laboratory Results: 11/05/17 04:43 11/05/17 11:25 10/20/17 20:52 Troponin I 0.108 Impressions: Venous Doppler Study 10/20/17 14:58 IMPRESSION: NO EVIDENCE DVT OR SVT IN THE RIGHT LEG. Barium Enema w/ Air Contrast, therapeutic 10/26/17 00:00 IMPRESSION: DIVERTICULOSIS OTHERWISE UNREMARKABLE STUDY. KUB X-Ray 10/26/17 00:00 IMPRESSION: No residual fecal material. Chest X-Ray 10/26/17 07:00 IMPRESSION: Interstitial pulmonary edema. Assessment & Plan - Diagnosis (1) Acute on chronic combined systolic and diastolic CHF (congestive heart failure) Is this a current diagnosis for this admission?: Yes (2) Anemia in chronic kidney disease Qualifiers: Chronic kidney disease stage: on chronic dialysis Qualified Code(s): N18.6 - End stage renal disease; D63.1 - Anemia in chronic kidney disease; D63.1 - Anemia in chronic kidney disease; Z99.2 - Dependence on renal dialysis; Z99.2 - Dependence on renal dialysis; Z99.2 - Dependence on renal dialysis; Z99.2 - Dependence on renal dialysis Is this a current diagnosis for this admission?: Yes - Time Time Spent with patient: 15-24 minutes
[2017-11-06] MEDS: ACETAMINOPHEN 325 MG TABLET PO PRN (18:24)
[2017-11-06] MEDS: WARFARIN SODIUM 3 MG TABLET PO SCH (22:11)
[2017-11-06] MEDS: ATORVASTATIN CALCIUM 20 MG TABLET PO SCH (22:11)
[2017-11-07] MEDS: GENTAMICIN SULFATE 0.3% OPH SOLN 5 ML OU SCH ×3 (03:34→14:16)
[2017-11-07 04:57] LABS: HEMATOCRIT 29.6 % (36.0-47.0); HEMOGLOBIN 9.7 g/dL (12.0-15.5); MEAN CORPUSCULAR HGB CONC 32.8 g/dL (32.0-36.0); MEAN CORPUSCULAR VOLUME 98 fl (80-97); PLATELET COUNT 278 10^3/uL (150-450); RED BLOOD COUNT 3.02 10^6/uL (3.72-5.28); RED CELL DISTRIBUTION WIDTH 22.6 % (11.5-14.0)
[2017-11-07 05:14] LABS: ANION GAP 14 (5-19); BLOOD UREA NITROGEN 77 mg/dL (7-20); CALCIUM 8.8 mg/dL (8.4-10.2); CARBON DIOXIDE 30 mmol/L (22-30); CHLORIDE 94 mmol/L (98-107); GLUCOSE 91 mg/dL (75-110); POTASSIUM 5.2 mmol/L (3.6-5.0); SODIUM 137.6 mmol/L (137-145)
[2017-11-07] MEDS: LANSOPRAZOLE 30 MG TAB.RAP.DR PO SCH (06:00)
[2017-11-07] MEDS ORDERED: HEPARIN SOD (PORCINE) 1,000 UNIT/ML 10 ML VIAL IV PRN ×2 (10:55→11:30)
[2017-11-07] MEDS: EPOETIN ALFA INJ 20000 UNIT/1 ML VIAL (RENAL) IV PRN (11:27)
--- NOTE | 2017-11-07 12:51 | PDOC PROGRESS REPORT ---
Subjective Progress Note for:: 11/07/17 Subjective:: I seen patient sitting up in chair. She is awake alert and oriented 2. She does not have any new complaint at this time. She is about to go for hemodialysis. I reviewed her labs her INR is slightly better which is 2.15. Reason For Visit: PNEUMONIA Physical Exam Vital Signs: Temp Pulse Resp BP Pulse Ox 98.6 F 71 18 119/51 L 95 11/07/17 04:50 11/07/17 07:00 11/07/17 04:50 11/07/17 04:50 11/07/17 04:50 Intake & Output 11/06/17 11/07/17 11/08/17 06:59 06:59 06:59 Intake Total 1010 742 Output Total 3600 Balance -2590 742 Weight 61.9 kg 63.5 kg Results Laboratory Results: 11/07/17 03:59 11/07/17 03:59 11/07/17 11/07/17 03:59 03:59 WBC 4.0 RBC 3.02 L Hgb 9.7 L Hct 29.6 L MCV 98 H MCH 32.0 MCHC 32.8 RDW 22.6 H Plt Count 278 Sodium 137.6 Potassium 5.2 H Chloride 94 L Carbon Dioxide 30 Anion Gap 14 BUN 77 H Creatinine 6.75 H Est GFR ( Amer) 7 L Est GFR (Non-Af Amer) 6 L Glucose 91 Calcium 8.8 10/20/17 20:52 Troponin I 0.108 Impressions: Venous Doppler Study 10/20/17 14:58 IMPRESSION: NO EVIDENCE DVT OR SVT IN THE RIGHT LEG. Barium Enema w/ Air Contrast, therapeutic 10/26/17 00:00 IMPRESSION: DIVERTICULOSIS OTHERWISE UNREMARKABLE STUDY. KUB X-Ray 10/26/17 00:00 IMPRESSION: No residual fecal material. Chest X-Ray 10/26/17 07:00 IMPRESSION: Interstitial pulmonary edema. Assessment & Plan - Diagnosis (1) Acute on chronic combined systolic and diastolic CHF (congestive heart failure) Is this a current diagnosis for this admission?: Yes Plan: Continue current regimen. (2) Anemia in chronic kidney disease Qualifiers: Qualified Code(s): N18.6 - End stage renal disease; D63.1 - Anemia in chronic kidney disease; D63.1 - Anemia in chronic kidney disease; Z99.2 - Dependence on renal dialysis; Z99.2 - Dependence on renal dialysis; Z99.2 - Dependence on renal dialysis; Z99.2 - Dependence on renal dialysis Is this a current diagnosis for this admission?: Yes Plan: Management per her kieselguhr regenerator operator Dr. Nelson. (3) Hypotension Qualifiers: Qualified Code(s): I95.3 - Hypotension of hemodialysis Is this a current diagnosis for this admission?: Yes Plan: Patient has chronic hypertension and she has been on midodrine. There is also an element of noncompliance. Hypotension is becoming a barrier for her hemodialysis but currently it is getting better today her blood pressure is 119/ 51. - Time Time Spent with patient: 25-34 minutes - Plan Summary Plan Summary: [facility] in a [facility] facility in order to closely monitor her medication particularly her Coumadin and her labs for INR.
--- NOTE | 2017-11-07 13:03 | PDOC PROGRESS REPORT ---
Subjective Progress Note for:: 11/07/17 Reason For Visit: Patient was seen on dialysis today. She is undergoing dialysis without any issues. She denies any history of chest pain or shortness of breath.Labs and medications were reviewed. Orders were discussed with the treating dialysis nurse. Physical Exam Vital Signs: Temp Pulse Resp BP Pulse Ox 98.6 F 71 18 119/51 L 95 11/07/17 04:50 11/07/17 07:00 11/07/17 04:50 11/07/17 04:50 11/07/17 04:50 Intake & Output 11/06/17 11/07/17 11/08/17 06:59 06:59 06:59 Intake Total 1010 742 Output Total 3600 Balance -2590 742 Weight 61.9 kg 63.5 kg General appearance: PRESENT: no acute distress Respiratory exam: PRESENT: clear to auscultation kee. ABSENT: crackles Cardiovascular exam: PRESENT: +S1, +S2, systolic murmur GI/Abdominal exam: PRESENT: normal bowel sounds, soft. ABSENT: organomegaly, tenderness Neurological exam: PRESENT: awake, oriented to person Results Laboratory Results: 11/07/17 03:59 11/07/17 03:59 11/07/17 11/07/17 03:59 03:59 WBC 4.0 RBC 3.02 L Hgb 9.7 L Hct 29.6 L MCV 98 H MCH 32.0 MCHC 32.8 RDW 22.6 H Plt Count 278 Sodium 137.6 Potassium 5.2 H Chloride 94 L Carbon Dioxide 30 Anion Gap 14 BUN 77 H Creatinine 6.75 H Est GFR ( Amer) 7 L Est GFR (Non-Af Amer) 6 L Glucose 91 Calcium 8.8 10/20/17 20:52 Troponin I 0.108 Impressions: Venous Doppler Study 10/20/17 14:58 IMPRESSION: NO EVIDENCE DVT OR SVT IN THE RIGHT LEG. Barium Enema w/ Air Contrast, therapeutic 10/26/17 00:00 IMPRESSION: DIVERTICULOSIS OTHERWISE UNREMARKABLE STUDY. KUB X-Ray 10/26/17 00:00 IMPRESSION: No residual fecal material. Chest X-Ray 10/26/17 07:00 IMPRESSION: Interstitial pulmonary edema. Assessment & Plan - Diagnosis (1) Acute on chronic combined systolic and diastolic CHF (congestive heart failure) Is this a current diagnosis for this admission?: Yes Plan: Stable. She is ready for discharge from a renal point of view. (2) ESRD (end stage renal disease) on dialysis Is this a current diagnosis for this admission?: Yes Plan: She is undergoing dialysis currently. It is being supervised to ensure safe and smooth procedure. Vital signs are stable. Orders were discussed with the treating dialysis nurse. Will remove approximately 2 L of fluid as tolerated. Orders given for epo. (3) Hypotension Qualifiers: Hypotension type: other hypotension type Qualified Code(s): I95.89 - Other hypotension Is this a current diagnosis for this admission?: Yes Plan: .Chronic. On Midodrin 10 mg and monitor the response.Advised on compliance with this medication as this is one of the reasons why we are unable to pull off fluids of her as an outpatient. (4) Anemia in chronic kidney disease Qualifiers: Chronic kidney disease stage: on chronic dialysis Qualified Code(s): N18.6 - End stage renal disease; D63.1 - Anemia in chronic kidney disease; D63.1 - Anemia in chronic kidney disease; Z99.2 - Dependence on renal dialysis; Z99.2 - Dependence on renal dialysis; Z99.2 - Dependence on renal dialysis; Z99.2 - Dependence on renal dialysis Is this a current diagnosis for this admission?: Yes Plan: On Procrit. Please also note that she is Hemoccult positive in the face of heparin bridging over to Coumadin. Recommend that she be taken off all anticoagulation as she is at a very high risk of GI bleeding besides other adverse effects from anticoagulation because she has had multiple falls and has got progressive dementia and is quite disabled. A couple of weeks later once she is Hemoccult negative one could reconsider using low-dose of Coumadin for her A. fib and prosthetic heart valves.This would be much ideal if she is discharged to a retirement as her home situation is quite bad.Would also recommend hospitalist discuss with cardiology on the plan of action if further doubts existing. (5) Diabetes mellitus, type 2 Qualifiers: Diabetes mellitus mcc insulin use: with mcc use Diabetes mellitus complication status: with kidney complications Diabetes mellitus complication detail: with chronic kidney disease Chronic kidney disease stage : on chronic dialysis Qualified Code(s): E11.22 - Type 2 diabetes mellitus with diabetic chronic kidney disease; N18.6 - End stage renal disease; Z99.2 - Dependence on renal dialysis; Z99.2 - Dependence on renal dialysis; Z99.2 - Dependence on renal dialysis; N18.6 - End stage renal disease; N18.6 - End stage renal disease; N18.6 - End stage renal disease; Z79.4 - long-term (current ) use of insulin; Z79.4 - poultry service technician (current) use of insulin; Z79.4 - long-term (current) use of insulin; Z79.4 - long-term (current) use of insulin; Z99.2 - Dependence on renal dialysis Is this a current diagnosis for this admission?: Yes (7) Atrial fibrillation Qualifiers: Atrial fibrillation type: chronic Qualified Code(s): I48.2 - Chronic atrial fibrillation Is this a current diagnosis for this admission?: Yes Plan: And prosthetic heart valves. Presently rate controlled.She is waiting for ideal INR with Coumadin and she is being bridged with heparin in the meanwhile.But given her severe dementia , current Hemoccult-positive, severe disability and dementia she is at a high risk of severe adverse effects and therefore I would recommend that the anticoagulation be discontinued and she be discharged on just rate control medications in the form of digoxin possibly.2 weeks after discharge if she is stable and Hemoccult negative, one could consider reintroduction of Coumadin at a lower dose of 5 mg and watched. This would be an ideal if she is discharged to a retirement where she could be monitored more closely. Her home situation is quite bad, where she is known to be quite noncompliant and has been known to take more or less of her medications.. (8) H/O prosthetic aortic valve replacement Plan: Stable.Currently being bridged from heparin to Coumadin. She has a high risk of severe complications from anticoagulation and currently she is Hemoccult- positive. Therefore knowing the risk of thromboembolism especially high given her mitral valve besides the aortic valve replacements and her atrial fibrillation I would recommend holding off on anticoagulation for the next couple of weeks. Ideally she should be discharged to retirement and 2 weeks into discharge if she is Hemoccult negative one could reintroduce Coumadin at the lower dose of 7 5 mg to keep her INR around 2 and not to the ideal state of between 2.5 and 3. Even that is accompanied by multiple risk and adverse effects but at least she is being watched over at the retirement which is not the case if she is discharged home.Please discuss with cardiology on further recommendations.. (9) Hyperkalemia Plan: Advised on low potassium diet..
[2017-11-07 13:59] LABS: HEMATOCRIT 31.6 % (36.0-47.0); HEMOGLOBIN 10.2 g/dL (12.0-15.5); MEAN CORPUSCULAR HEMOGLOBIN 31.6 pg (27.0-33.4); MEAN CORPUSCULAR HGB CONC 32.3 g/dL (32.0-36.0); MEAN CORPUSCULAR VOLUME 98 fl (80-97); PLATELET COUNT 304 10^3/uL (150-450); RED BLOOD COUNT 3.22 10^6/uL (3.72-5.28); RED CELL DISTRIBUTION WIDTH 22.7 % (11.5-14.0); WHITE BLOOD COUNT 3.1 10^3/uL (4.0-10.5)
[2017-11-07 14:14] LABS: PROTHROMBIN TIME 23.6 SEC (11.4-15.4)
[2017-11-07] MEDS: ESCITALOPRAM OXALATE 10 MG TABLET PO SCH (14:16)
[2017-11-07] MEDS: METOLAZONE 5 MG TABLET PO SCH ×2 (14:17→21:30)
[2017-11-07] MEDS: MIDODRINE HCL 5 MG TABLET PO SCH ×2 (14:18→17:48)
[2017-11-07] MEDS: METOPROLOL TARTRATE 25 MG TABLET PO SCH ×2 (14:18→21:31)
[2017-11-07] MEDS: WARFARIN SODIUM 3 MG TABLET PO SCH (21:30)
[2017-11-07] MEDS: ATORVASTATIN CALCIUM 20 MG TABLET PO SCH (21:32)
[2017-11-08 05:10] LABS: HEMATOCRIT 29.9 % (36.0-47.0); HEMOGLOBIN 9.6 g/dL (12.0-15.5); MEAN CORPUSCULAR HEMOGLOBIN 31.7 pg (27.0-33.4); MEAN CORPUSCULAR HGB CONC 32.3 g/dL (32.0-36.0); MEAN CORPUSCULAR VOLUME 98 fl (80-97); PLATELET COUNT 269 10^3/uL (150-450); RED BLOOD COUNT 3.04 10^6/uL (3.72-5.28); RED CELL DISTRIBUTION WIDTH 22.7 % (11.5-14.0)
[2017-11-08 05:26] LABS: ANION GAP 10 (5-19); BLOOD UREA NITROGEN 52 mg/dL (7-20); CALCIUM 8.8 mg/dL (8.4-10.2); CARBON DIOXIDE 32 mmol/L (22-30); CHLORIDE 96 mmol/L (98-107); GLUCOSE 97 mg/dL (75-110); POTASSIUM 4.8 mmol/L (3.6-5.0)
[2017-11-08] MEDS: LANSOPRAZOLE 30 MG TAB.RAP.DR PO SCH (06:51)
[2017-11-08] MEDS: METOLAZONE 5 MG TABLET PO SCH ×2 (10:21→22:06)
[2017-11-08] MEDS: MIDODRINE HCL 5 MG TABLET PO SCH ×3 (10:22→17:18)
[2017-11-08] MEDS: METOPROLOL TARTRATE 25 MG TABLET PO SCH ×2 (10:22→22:07)
[2017-11-08] MEDS: ACETAMINOPHEN 325 MG TABLET PO PRN (10:22)
[2017-11-08] MEDS: ESCITALOPRAM OXALATE 10 MG TABLET PO SCH (10:22)
--- NOTE | 2017-11-08 12:30 | PDOC PROGRESS REPORT ---
Subjective Progress Note for:: 11/08/17 Subjective:: I seen patient sleeping quietly. No significant events overnight. It is relatively clinically stable except that her INR is still subtherapeutic. Initially her INR seems trending upward but today it drops from 2.15 to 2.0. I increased the dose of her Coumadin from 6 mg to 7.5 mg. And will check her INR tomorrow. Reason For Visit: PNEUMONIA Physical Exam Vital Signs: Temp Pulse Resp BP Pulse Ox 98.6 F 69 21 H 117/57 L 93 11/08/17 07:15 11/08/17 07:15 11/08/17 07:15 11/08/17 07:15 11/08/17 07:15 Intake & Output 11/07/17 11/08/17 11/09/17 06:59 06:59 06:59 Intake Total 742 608 Output Total 2100 Balance 742 -1492 Weight 63.5 kg 63.2 kg General appearance: PRESENT: no acute distress, well-developed, well-nourished Respiratory exam: PRESENT: clear to auscultation kee. ABSENT: rales, rhonchi, wheezes Cardiovascular exam: PRESENT: RRR. ABSENT: diastolic murmur, rubs, systolic murmur Results Laboratory Results: 11/08/17 04:18 11/08/17 04:18 11/07/17 11/08/17 11/08/17 13:35 04:18 04:18 WBC 3.1 L 4.0 RBC 3.22 L 3.04 L Hgb 10.2 L 9.6 L Hct 31.6 L 29.9 L MCV 98 H 98 H MCH 31.6 31.7 MCHC 32.3 32.3 RDW 22.7 H 22.7 H Plt Count 304 269 Sodium 138.0 Potassium 4.8 Chloride 96 L Carbon Dioxide 32 H Anion Gap 10 BUN 52 H Creatinine 4.66 H Est GFR ( Amer) 11 L Est GFR (Non-Af Amer) 9 L Glucose 97 Calcium 8.8 10/20/17 20:52 Troponin I 0.108 Impressions: Venous Doppler Study 10/20/17 14:58 IMPRESSION: NO EVIDENCE DVT OR SVT IN THE RIGHT LEG. Barium Enema w/ Air Contrast, therapeutic 10/26/17 00:00 IMPRESSION: DIVERTICULOSIS OTHERWISE UNREMARKABLE STUDY. KUB X-Ray 10/26/17 00:00 IMPRESSION: No residual fecal material. Chest X-Ray 10/26/17 07:00 IMPRESSION: Interstitial pulmonary edema. Assessment & Plan - Diagnosis (1) Acute on chronic combined systolic and diastolic CHF (congestive heart failure) Is this a current diagnosis for this admission?: Yes Plan: Continue current regimen. (2) Anemia in chronic kidney disease Qualifiers: Chronic kidney disease stage: on chronic dialysis Qualified Code(s): N18.6 - End stage renal disease; D63.1 - Anemia in chronic kidney disease; D63.1 - Anemia in chronic kidney disease; Z99.2 - Dependence on renal dialysis; Z99.2 - Dependence on renal dialysis; Z99.2 - Dependence on renal dialysis; Z99.2 - Dependence on renal dialysis Is this a current diagnosis for this admission?: Yes Plan: Management per her naval police coxswain Dr. Nelson. (3) Hypotension Qualifiers: Hypotension type: hemodialysis-associated hypotension Qualified Code(s): I95.3 - Hypotension of hemodialysis Is this a current diagnosis for this admission?: Yes Plan: Patient has chronic hypertension and she has been on midodrine. There is also an element of noncompliance. Hypotension is becoming a barrier for her hemodialysis but currently it is getting better today her blood pressure is 119/ 51. (4) Subtherapeutic international normalized ratio (INR) Is this a current diagnosis for this admission?: Yes Plan: Increase the dose of her INR from 6 to seven-point and will check her INR level in a.m. - Time Time Spent with patient: 25-34 minutes
[2017-11-08] MEDS: DIGOXIN 0.125 MG TABLET PO SCH (17:18)
[2017-11-08] MEDS: ATORVASTATIN CALCIUM 20 MG TABLET PO SCH (22:06)
[2017-11-08] MEDS: WARFARIN SODIUM 7.5 MG TABLET PO SCH (22:06)
[2017-11-09] MEDS: ACETAMINOPHEN 325 MG TABLET PO PRN ×2 (00:58→11:29)
[2017-11-09] MEDS: LANSOPRAZOLE 30 MG TAB.RAP.DR PO SCH (05:37)
[2017-11-09 05:39] LABS: CALCIUM 8.5 mg/dL (8.4-10.2); CARBON DIOXIDE 28 mmol/L (22-30); CHLORIDE 94 mmol/L (98-107); GLUCOSE 86 mg/dL (75-110); POTASSIUM 5.5 mmol/L (3.6-5.0)
[2017-11-09 05:40] LABS: ANION GAP 15 (5-19)
[2017-11-09 06:58] LABS: BLOOD UREA NITROGEN 76 mg/dL (7-20)
[2017-11-09] MEDS: METOLAZONE 5 MG TABLET PO SCH ×2 (10:22→21:54)
[2017-11-09] MEDS: MIDODRINE HCL 5 MG TABLET PO SCH ×3 (10:22→18:31)
[2017-11-09] MEDS: METOPROLOL TARTRATE 25 MG TABLET PO SCH ×2 (10:22→21:54)
[2017-11-09] MEDS: ESCITALOPRAM OXALATE 10 MG TABLET PO SCH (10:23)
--- NOTE | 2017-11-09 12:21 | PDOC PROGRESS REPORT ---
Subjective Progress Note for:: 11/09/17 Subjective:: The patient is a 77-year-old -[place] female who presented to the emergency room with increased leg swelling and shortness of breathand hypotension. Reportedly patient is not compliant with her Midodrine.Her PMH is also remarkable for Afib and aortic and mitral mechanical valve replacement. At that admission patient also found to have subtherapeutic INR. Which she is bridged with heparin and Coumadin. Currently she is off heparin. Her INR is subtherapeutic and increase the dose of her Coumadin from 6-7.5. Shipwright and rod hanger are on board. Patient is clinically stable so once her INR is therapeutic therapeutic she can be discharged to half-way. Reason For Visit: PNEUMONIA Physical Exam Vital Signs: Temp Pulse Resp BP Pulse Ox 98.6 F 58 L 14 110/53 L 100 11/09/17 07:31 11/09/17 07:31 11/09/17 07:31 11/09/17 07:31 11/09/17 07:31 Intake & Output 11/08/17 11/09/17 11/10/17 06:59 06:59 06:59 Intake Total 608 475 Output Total 2100 Balance -1492 475 Weight 63.2 kg 61.5 kg General appearance: PRESENT: no acute distress, well-developed, well-nourished Head exam: PRESENT: atraumatic, normocephalic Respiratory exam: PRESENT: clear to auscultation kee. ABSENT: rales, rhonchi, wheezes Cardiovascular exam: PRESENT: diastolic murmur Results Laboratory Results: 11/08/17 04:18 11/09/17 03:56 11/09/17 03:56 Sodium 137.0 Potassium 5.5 H Chloride 94 L Carbon Dioxide 28 Anion Gap 15 BUN 76 H D Creatinine 6.31 H Est GFR ( Amer) 8 L Est GFR (Non-Af Amer) 6 L Glucose 86 Calcium 8.5 10/20/17 20:52 Troponin I 0.108 Impressions: Venous Doppler Study 10/20/17 14:58 IMPRESSION: NO EVIDENCE DVT OR SVT IN THE RIGHT LEG. Barium Enema w/ Air Contrast, therapeutic 10/26/17 00:00 IMPRESSION: DIVERTICULOSIS OTHERWISE UNREMARKABLE STUDY. KUB X-Ray 10/26/17 00:00 IMPRESSION: No residual fecal material. Chest X-Ray 10/26/17 07:00 IMPRESSION: Interstitial pulmonary edema. Assessment & Plan - Diagnosis (1) Acute on chronic combined systolic and diastolic CHF (congestive heart failure) Is this a current diagnosis for this admission?: Yes Plan: Continue current regimen. (2) Anemia in chronic kidney disease Qualifiers: Chronic kidney disease stage: on chronic dialysis Qualified Code(s): N18.6 - End stage renal disease; D63.1 - Anemia in chronic kidney disease; D63.1 - Anemia in chronic kidney disease; Z99.2 - Dependence on renal dialysis; Z99.2 - Dependence on renal dialysis; Z99.2 - Dependence on renal dialysis; Z99.2 - Dependence on renal dialysis Is this a current diagnosis for this admission?: Yes Plan: Management per her cell feed department supervisor Dr. Nelson. (3) Hypotension Qualifiers: Hypotension type: hemodialysis-associated hypotension Qualified Code(s): I95.3 - Hypotension of hemodialysis Is this a current diagnosis for this admission?: Yes Plan: Patient has chronic hypertension and she has been on midodrine. There is also an element of noncompliance. Hypotension is becoming a barrier for her hemodialysis but currently it is getting better and she started to tolerate dialysis. (4) Subtherapeutic international normalized ratio (INR) Is this a current diagnosis for this admission?: Yes Plan: Increase the dose of her INR from 6 to 7.5 (5) A-fib Is this a current diagnosis for this admission?: Yes Plan: Rate controlled on Coumadin for anticoagulation. - Time Time Spent with patient: 25-34 minutes - Inpatient Certification Medical Necessity: Need Close Monitoring Due to Risk of Patient Decompensation
[2017-11-09] MEDS: LORAZEPAM 1 MG TABLET PO PRN (14:11)
[2017-11-09] MEDS: WARFARIN SODIUM 7.5 MG TABLET PO SCH (21:55)
[2017-11-09] MEDS: ATORVASTATIN CALCIUM 20 MG TABLET PO SCH (21:55)
[2017-11-10] MEDS: ACETAMINOPHEN 325 MG TABLET PO PRN (01:57)
[2017-11-10 05:10] LABS: HEMOGLOBIN 9.5 g/dL (12.0-15.5); MEAN CORPUSCULAR HEMOGLOBIN 31.7 pg (27.0-33.4); MEAN CORPUSCULAR HGB CONC 32.6 g/dL (32.0-36.0); MEAN CORPUSCULAR VOLUME 98 fl (80-97); PLATELET COUNT 263 10^3/uL (150-450); RED BLOOD COUNT 2.98 10^6/uL (3.72-5.28); RED CELL DISTRIBUTION WIDTH 21.9 % (11.5-14.0); WHITE BLOOD COUNT 4.2 10^3/uL (4.0-10.5)
[2017-11-10 05:36] LABS: CALCIUM 7.8 mg/dL (8.4-10.2); CHLORIDE 91 mmol/L (98-107); GLUCOSE 80 mg/dL (75-110)
[2017-11-10 05:40] LABS: INTERNATIONAL RATION (INR) 2.61; PROTHROMBIN TIME 29.2 SEC (11.4-15.4)
[2017-11-10 06:17] LABS: ANION GAP 18 (5-19); CARBON DIOXIDE 22 mmol/L (22-30); SODIUM 131.3 mmol/L (137-145)
[2017-11-10 06:20] LABS: BLOOD UREA NITROGEN 102 mg/dL (7-20)
[2017-11-10 06:23] LABS: POTASSIUM 6.5 mmol/L (3.6-5.0)
[2017-11-10] MEDS: LANSOPRAZOLE 30 MG TAB.RAP.DR PO SCH (06:25)
[2017-11-10] MEDS ORDERED: DEXTROSE 50%-WATER 25 GM/50 ML DISP.SYRIN IV ONE (07:36)
[2017-11-10] MEDS ORDERED: INSULIN REG, HUMAN 100 UNIT/ML 3 ML VIAL (PYX) IV ONE (09:30)
[2017-11-10] MEDS ORDERED: CALCIUM GLUCONATE 1000 MG/10 ML INJ IV ONE (09:30)
[2017-11-10] MEDS ORDERED: HEPARIN SOD (PORCINE) 1,000 UNIT/ML 10 ML VIAL IV PRN (11:00)
[2017-11-10] MEDS: EPOETIN ALFA INJ 20000 UNIT/1 ML VIAL (RENAL) IV PRN (11:04)
[2017-11-10] MEDS: METOLAZONE 5 MG TABLET PO SCH ×2 (12:21→21:27)
[2017-11-10] MEDS: ESCITALOPRAM OXALATE 10 MG TABLET PO SCH (12:21)
[2017-11-10] MEDS: METOPROLOL TARTRATE 25 MG TABLET PO SCH ×2 (12:21→21:28)
[2017-11-10] MEDS: MIDODRINE HCL 5 MG TABLET PO SCH ×3 (12:22→17:43)
--- NOTE | 2017-11-10 12:22 | PDOC PROGRESS REPORT ---
Subjective Progress Note for:: 11/10/17 Subjective:: The patient is a 77-year-old -[place] female who presented to the emergency room with increased leg swelling and shortness of breathand hypotension. Reportedly patient is not compliant with her Midodrine.Her PMH is also remarkable for Afib and aortic and mitral mechanical valve replacement. At that admission patient also found to have subtherapeutic INR. Which she is bridged with heparin and Coumadin. Currently she is off heparin. Her INR is subtherapeutic and increase the dose of her Coumadin from 6-7.5. Tail Sawyer and unemployment specialist are on board. This morning patient is found to have hyperkalemia with potassium of 6.5. Patient is also going to have dialysis today if the repeat BMP shows a still high potassium will give her glucose with regular insulin and calcium gluconate to counteract the effect of potassium on on the heart. Her INR is picking up to date is 2.65 so once INR is therapeutic patient can be [facility]. Reason For Visit: PNEUMONIA Physical Exam Vital Signs: Temp Pulse Resp BP Pulse Ox 98.4 F 70 18 100/65 97 11/10/17 03:30 11/10/17 07:00 11/10/17 03:30 11/10/17 03:30 11/10/17 03:30 Intake & Output 11/09/17 11/10/17 11/11/17 06:59 06:59 06:59 Intake Total 475 715 Balance 475 715 Weight 61.5 kg 65.1 kg Results Laboratory Results: 11/10/17 03:51 11/10/17 03:51 11/10/17 11/10/17 03:51 03:51 WBC 4.2 RBC 2.98 L Hgb 9.5 L Hct 29.0 L MCV 98 H MCH 31.7 MCHC 32.6 RDW 21.9 H Plt Count 263 Sodium 131.3 L Potassium 6.5 H* D Chloride 91 L Carbon Dioxide 22 Anion Gap 18 BUN 102 H D Creatinine 7.03 H Est GFR ( Amer) 7 L Est GFR (Non-Af Amer) 6 L Glucose 80 Calcium 7.8 L 10/20/17 20:52 Troponin I 0.108 Impressions: Venous Doppler Study 10/20/17 14:58 IMPRESSION: NO EVIDENCE DVT OR SVT IN THE RIGHT LEG. Barium Enema w/ Air Contrast, therapeutic 10/26/17 00:00 IMPRESSION: DIVERTICULOSIS OTHERWISE UNREMARKABLE STUDY. KUB X-Ray 10/26/17 00:00 IMPRESSION: No residual fecal material. Chest X-Ray 10/26/17 07:00 IMPRESSION: Interstitial pulmonary edema. Assessment & Plan - Diagnosis (1) Acute on chronic combined systolic and diastolic CHF (congestive heart failure) Is this a current diagnosis for this admission?: Yes Plan: Continue current regimen. (2) Anemia in chronic kidney disease Qualifiers: Chronic kidney disease stage: on chronic dialysis Qualified Code(s): N18.6 - End stage renal disease; D63.1 - Anemia in chronic kidney disease; D63.1 - Anemia in chronic kidney disease; Z99.2 - Dependence on renal dialysis; Z99.2 - Dependence on renal dialysis; Z99.2 - Dependence on renal dialysis; Z99.2 - Dependence on renal dialysis Is this a current diagnosis for this admission?: Yes Plan: Management per her aws software development engineer Dr. Nelson. (3) Hypotension Qualifiers: Hypotension type: hemodialysis-associated hypotension Qualified Code(s): I95.3 - Hypotension of hemodialysis Is this a current diagnosis for this admission?: Yes Plan: Patient has chronic hypertension and she has been on midodrine. There is also an element of noncompliance. Hypotension is becoming a barrier for her hemodialysis but currently it is getting better and she started to tolerate dialysis. (4) Subtherapeutic international normalized ratio (INR) Is this a current diagnosis for this admission?: Yes Plan: Increase the dose of her INR from 6 to 7.5 Her INR is increasing. (5) A-fib Is this a current diagnosis for this admission?: Yes Plan: Rate controlled on Coumadin for anticoagulation.
[2017-11-10 13:20] LABS: ANION GAP 12 (5-19); CALCIUM 8.4 mg/dL (8.4-10.2); CARBON DIOXIDE 31 mmol/L (22-30); CHLORIDE 94 mmol/L (98-107); GLUCOSE 93 mg/dL (75-110); SODIUM 136.5 mmol/L (137-145)
[2017-11-10 13:37] LABS: BLOOD UREA NITROGEN 39 mg/dL (7-20)
[2017-11-10] MEDS: DIGOXIN 0.125 MG TABLET PO SCH (17:43)
--- NOTE | 2017-11-10 17:51 | PDOC PROGRESS REPORT ---
Subjective Progress Note for:: 11/10/17 Reason For Visit: Seen on HD.No c/o.Denies any chest pains, dyspnea.Orders discussed with treating HD RN. Physical Exam Vital Signs: Temp Pulse Resp BP Pulse Ox 98.5 F 87 18 103/63 98 11/10/17 12:37 11/10/17 14:00 11/10/17 12:39 11/10/17 12:37 11/10/17 12:39 Intake & Output 11/09/17 11/10/17 11/11/17 06:59 06:59 06:59 Intake Total 475 715 Balance 475 715 Weight 61.5 kg 65.1 kg General appearance: PRESENT: no acute distress Respiratory exam: PRESENT: clear to auscultation kee. ABSENT: crackles, rhonchi Cardiovascular exam: PRESENT: +S1, +S2, systolic murmur GI/Abdominal exam: PRESENT: normal bowel sounds, soft. ABSENT: organomegaly, tenderness Neurological exam: PRESENT: awake, oriented to person Results Laboratory Results: 11/10/17 03:51 11/10/17 12:48 11/10/17 11/10/17 11/10/17 03:51 03:51 12:48 WBC 4.2 RBC 2.98 L Hgb 9.5 L Hct 29.0 L MCV 98 H MCH 31.7 MCHC 32.6 RDW 21.9 H Plt Count 263 Sodium 131.3 L 136.5 L Potassium 6.5 H* D 4.0 D Chloride 91 L 94 L Carbon Dioxide 22 31 H Anion Gap 18 12 BUN 102 H D 39 H D Creatinine 7.03 H 3.48 H Est GFR ( Amer) 7 L 15 L Est GFR (Non-Af Amer) 6 L 13 L Glucose 80 93 Calcium 7.8 L 8.4 10/20/17 20:52 Troponin I 0.108 Impressions: Venous Doppler Study 10/20/17 14:58 IMPRESSION: NO EVIDENCE DVT OR SVT IN THE RIGHT LEG. Barium Enema w/ Air Contrast, therapeutic 10/26/17 00:00 IMPRESSION: DIVERTICULOSIS OTHERWISE UNREMARKABLE STUDY. KUB X-Ray 10/26/17 00:00 IMPRESSION: No residual fecal material. Chest X-Ray 10/26/17 07:00 IMPRESSION: Interstitial pulmonary edema. Assessment & Plan - Diagnosis (1) Acute on chronic combined systolic and diastolic CHF (congestive heart failure) Is this a current diagnosis for this admission?: Yes Plan: Stable. She is ready for discharge from a renal point of view. (2) ESRD (end stage renal disease) on dialysis Is this a current diagnosis for this admission?: Yes Plan: She is undergoing dialysis currently. It is being supervised to ensure safe and smooth procedure. Vital signs are stable. Orders were discussed with the treating dialysis nurse. Will remove approximately 3 L of fluid as tolerated. Orders given for epo. (3) Hypotension Qualifiers: Hypotension type: other hypotension type Qualified Code(s): I95.89 - Other hypotension Is this a current diagnosis for this admission?: Yes Plan: .Chronic. On Midodrin 10 mg and monitor the response.Advised on compliance with this medication as this is one of the reasons why we are unable to pull off fluids of her as an outpatient. (4) Anemia in chronic kidney disease Qualifiers: Chronic kidney disease stage: on chronic dialysis Qualified Code(s): N18.6 - End stage renal disease; D63.1 - Anemia in chronic kidney disease; D63.1 - Anemia in chronic kidney disease; Z99.2 - Dependence on renal dialysis; Z99.2 - Dependence on renal dialysis; Z99.2 - Dependence on renal dialysis; Z99.2 - Dependence on renal dialysis Is this a current diagnosis for this admission?: Yes Plan: On Procrit. (5) Diabetes mellitus, type 2 Qualifiers: Diabetes mellitus order entry clerk insulin use: with mcc use Diabetes mellitus complication status: with kidney complications Diabetes mellitus complication detail: with chronic kidney disease Chronic kidney disease stage : on chronic dialysis Qualified Code(s): E11.22 - Type 2 diabetes mellitus with diabetic chronic kidney disease; N18.6 - End stage renal disease; Z99.2 - Dependence on renal dialysis; Z99.2 - Dependence on renal dialysis; Z99.2 - Dependence on renal dialysis; N18.6 - End stage renal disease; N18.6 - End stage renal disease; N18.6 - End stage renal disease; Z79.4 - MCC (current ) use of insulin; Z79.4 - keymodule 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 (8) H/O prosthetic aortic valve replacement Plan: Stable.As per hospitalist and cardiology. (9) Hyperkalemia Plan: Advised on low potassium diet.
[2017-11-10] MEDS: ATORVASTATIN CALCIUM 20 MG TABLET PO SCH (21:27)
[2017-11-10] MEDS: WARFARIN SODIUM 7.5 MG TABLET PO SCH (21:28)
[2017-11-10] MEDS: LORAZEPAM 1 MG TABLET PO PRN (23:44)
[2017-11-11 05:37] LABS: ANION GAP 14 (5-19); CALCIUM 7.8 mg/dL (8.4-10.2); CARBON DIOXIDE 29 mmol/L (22-30); CHLORIDE 94 mmol/L (98-107); GLUCOSE 78 mg/dL (75-110); POTASSIUM 4.8 mmol/L (3.6-5.0)
[2017-11-11 06:13] LABS: BLOOD UREA NITROGEN 62 mg/dL (7-20)
[2017-11-11] MEDS: LANSOPRAZOLE 30 MG TAB.RAP.DR PO SCH (06:20)
[2017-11-11] MEDS: MIDODRINE HCL 5 MG TABLET PO SCH ×3 (10:03→17:47)
[2017-11-11] MEDS: METOPROLOL TARTRATE 25 MG TABLET PO SCH ×2 (10:03→23:38)
[2017-11-11] MEDS: METOLAZONE 5 MG TABLET PO SCH ×2 (10:03→23:38)
[2017-11-11] MEDS: ESCITALOPRAM OXALATE 10 MG TABLET PO SCH (10:04)
--- NOTE | 2017-11-11 11:14 | PDOC DISCHARGE SUMMARY ---
General - Admit/Disc Date/PCP Admission Date/Primary Care Provider: 10/20/17 18:20 CHRIS BENEDICT MD Discharge Date: 11/11/17 - Discharge Diagnosis (1) A-fib Is this a current diagnosis for this admission?: Yes Summary: Stable on home medications (2) Acute on chronic combined systolic and diastolic CHF (congestive heart failure) Is this a current diagnosis for this admission?: Yes Summary: Improved with dialysis (3) Anemia in chronic kidney disease Is this a current diagnosis for this admission?: Yes Summary: Stable (4) Chronic anticoagulation Is this a current diagnosis for this admission?: Yes Summary: Her INR was subtherapeutic and her warfarin was increased to daily. This will need to be rechecked at follow-up. (5) Diabetes mellitus, type 2 Is this a current diagnosis for this admission?: Yes Summary: Stable continue home medications (6) End stage renal disease Is this a current diagnosis for this admission?: Yes Summary: Continue routine dialysis Friday (7) Mechanical heart valve present Is this a current diagnosis for this admission?: Yes Summary: Continue warfarin (8) Subtherapeutic international normalized ratio (INR) Is this a current diagnosis for this admission?: Yes Summary: Warfarin was increased as noted. - Additional Information Resuscitation Status: Full Code Discharge Diet: Cardiac Discharge Activity: Activity As Tolerated, Balance Activity w/Rest, Weigh Daily Home Medications: Ferrous Sulfate [Iron] 325 mg PO BID 10/06/17 Pantoprazole Sodium [Protonix] 40 mg PO DAILY 10/06/17 Digoxin [Lanoxin 0.125 mg Tablet] 0.0625 mg PO Q48H MDD NOT STARTED YET Escitalopram Oxalate [Lexapro 10 mg Tablet] 20 mg PO DAILY 10/20/17 Lorazepam [Ativan 1 mg Tablet] 1 mg PO Q6HP PRN 10/20/17 Metolazone [Zaroxolyn 5 Mg Tablet] 5 mg PO Q12 10/20/17 Metoprolol Succinate [Toprol Xl 25 mg Tab.sr] 25 mg PO Q12 10/20/17 Midodrine HCl [Proamatine 5 mg Tablet] 10 mg PO TID 10/20/17 Atorvastatin Calcium [Lipitor 20 mg Tablet] 20 mg PO QHS tablet 11/11/17 Epoetin Marc [Procrit Inj 20,000 Unit/1 ml Vial (Renal)] 20,000 unit IV .DIALYSIS PRN ml 11/11/17 Metoprolol Tartrate [Lopressor 25 mg Tablet] 25 mg PO Q12 #0 tablet 11/11/17 Midodrine HCl [Proamatine 5 mg Tablet] 10 mg PO TID tablet 11/11/17 Warfarin Sodium [Coumadin 7.5 mg Tablet] 7.5 mg PO QHS #30 tablet 11/11/17 History of Present Illness History of Present Illness: TAMMY BUCKLEY is a 77 year old female Hospital Course Hospital Course: This patient presents to the emergency room with complaints of increased leg swelling and difficulty breathing. She was just recently discharged from the hospital on October 13. She denies any chest pain nausea vomiting. She does have history significant for atrial fibrillation as well as mechanical aortic and mitral valve replacement. She was felt to have decompensated diastolic heart failure and she received dialysis to help adjust her fluid balance. It was recommended for her to be discharged to rehabilitation however patient refused and insisted on going home with her spouse. Hospital course: She was dialyzed with improvement in her breathing and swelling. Her INR was noted to be low and her warfarin has been adjusted. We, once again, tried to persuade her to go to rehab and, once again, she refused. I think she is very high risk for readmission. I will send home health out to keep an eye on her swelling, breathing, monitor her medication use, and to work on strengthening and ADLs. Physical Exam Vital Signs: Temp Pulse Resp BP Pulse Ox 98.2 F 72 22 H 117/55 L 96 11/11/17 07:26 11/11/17 07:26 11/11/17 07:26 11/11/17 07:26 11/11/17 07:26 Intake & Output 11/10/17 11/11/17 11/12/17 06:59 06:59 06:59 Intake Total 715 1077 Output Total 2367 Balance 715 -1423 Weight 65.1 kg 63.2 kg Results Laboratory Results: 11/10/17 03:51 11/11/17 04:27 11/10/17 11/11/17 12:48 04:27 Sodium 136.5 L 137.0 Potassium 4.0 D 4.8 Chloride 94 L 94 L Carbon Dioxide 31 H 29 Anion Gap 12 14 BUN 39 H D 62 H D Creatinine 3.48 H 5.15 H Est GFR ( Amer) 15 L 10 L Est GFR (Non-Af Amer) 13 L 8 L Glucose 93 78 Calcium 8.4 7.8 L 10/20/17 20:52 Troponin I 0.108 Impressions: Venous Doppler Study 10/20/17 14:58 IMPRESSION: NO EVIDENCE DVT OR SVT IN THE RIGHT LEG. Barium Enema w/ Air Contrast, therapeutic 10/26/17 00:00 IMPRESSION: DIVERTICULOSIS OTHERWISE UNREMARKABLE STUDY. KUB X-Ray 10/26/17 00:00 IMPRESSION: No residual fecal material. Chest X-Ray 10/26/17 07:00 IMPRESSION: Interstitial pulmonary edema. Qualifiers - * PATEINT BEING DISCHARGED WITH ANY OF THE FOLLOWING DIAGNOSIS?: No
--- NOTE | 2017-11-11 19:20 | PDOC PROGRESS REPORT ---
Subjective Progress Note for:: 11/11/17 Subjective:: Saw patient this morning sitting up in her chair comfortably. At the time she was on the phone with her daughter. She did not wish to go to a [facility] facility and instead wanted to go home with her daughter. Patient was stable with no current complaints other than wanting to get out of the hospital. Reason For Visit: PNEUMONIA Physical Exam Vital Signs: Temp Pulse Resp BP Pulse Ox 98.1 F 56 L 22 H 119/58 L 100 11/11/17 15:49 11/11/17 15:49 11/11/17 15:49 11/11/17 15:49 11/11/17 15:49 Intake & Output 11/10/17 11/11/17 11/12/17 06:59 06:59 06:59 Intake Total 715 1077 515 Output Total 2500 Balance 715 -1423 515 Weight 65.1 kg 63.2 kg General appearance: PRESENT: no acute distress, well-developed, well-nourished Mouth exam: PRESENT: moist, neck supple Neck exam: PRESENT: full ROM. ABSENT: JVD Respiratory exam: PRESENT: clear to auscultation kee. ABSENT: accessory muscle use, crackles, rales, rhonchi, wheezes Cardiovascular exam: PRESENT: +S1, +S2, systolic murmur GI/Abdominal exam: PRESENT: normal bowel sounds, soft. ABSENT: organomegaly, tenderness Extremities exam: PRESENT: tenderness. ABSENT: pedal edema, +1 edema, +2 edema Musculoskeletal exam: PRESENT: tenderness. ABSENT: normal inspection Neurological exam: PRESENT: alert, awake, oriented to person, oriented to place , oriented to time, oriented to situation Skin exam: PRESENT: dry, intact, warm. ABSENT: cyanosis Results Laboratory Results: 11/10/17 03:51 11/11/17 04:27 11/11/17 04:27 Sodium 137.0 Potassium 4.8 Chloride 94 L Carbon Dioxide 29 Anion Gap 14 BUN 62 H D Creatinine 5.15 H Est GFR ( Amer) 10 L Est GFR (Non-Af Amer) 8 L Glucose 78 Calcium 7.8 L 10/20/17 20:52 Troponin I 0.108 Impressions: Venous Doppler Study 10/20/17 14:58 IMPRESSION: NO EVIDENCE DVT OR SVT IN THE RIGHT LEG. Barium Enema w/ Air Contrast, therapeutic 10/26/17 00:00 IMPRESSION: DIVERTICULOSIS OTHERWISE UNREMARKABLE STUDY. KUB X-Ray 10/26/17 00:00 IMPRESSION: No residual fecal material. Chest X-Ray 10/26/17 07:00 IMPRESSION: Interstitial pulmonary edema. Assessment & Plan - Diagnosis (1) Acute on chronic combined systolic and diastolic CHF (congestive heart failure) Is this a current diagnosis for this admission?: Yes Plan: stable at baseline, discussed with her and her daughter that was on the phone how to take midodrine. Advised that proper compliance with midodrine will make for more successful dialysis as an outpatient. The daughter and patient were of understanding. (2) End stage renal disease Is this a current diagnosis for this admission?: Yes Plan: will look to arrange for dialysis tomorrow if she remains in the hospital. (3) Anemia in chronic kidney disease Qualifiers: Chronic kidney disease stage: on chronic dialysis Qualified Code(s): N18.6 - End stage renal disease; D63.1 - Anemia in chronic kidney disease; D63.1 - Anemia in chronic kidney disease; Z99.2 - Dependence on renal dialysis; Z99.2 - Dependence on renal dialysis; Z99.2 - Dependence on renal dialysis; Z99.2 - Dependence on renal dialysis Is this a current diagnosis for this admission?: Yes Plan: on epogen during dialysis (4) Atrial fibrillation Qualifiers: Atrial fibrillation type: chronic Qualified Code(s): I48.2 - Chronic atrial fibrillation Is this a current diagnosis for this admission?: Yes Plan: on Coumadin and metoprolol. (5) Dyspnea Qualifiers: Dyspnea type: orthopnea Qualified Code(s): R06.01 - Orthopnea Plan: baseline (6) Hyperkalemia Plan: stable (7) Diabetes mellitus, type 2 Qualifiers: Diabetes mellitus senior care insulin use: with senior care use Diabetes mellitus complication status: with kidney complications Diabetes mellitus complication detail: with chronic kidney disease Chronic kidney disease stage : on chronic dialysis Qualified Code(s): E11.22 - Type 2 diabetes mellitus with diabetic chronic kidney disease; N18.6 - End stage renal disease; Z99.2 - Dependence on renal dialysis; Z99.2 - Dependence on renal dialysis; Z99.2 - Dependence on renal dialysis; N18.6 - End stage renal disease; N18.6 - End stage renal disease; N18.6 - End stage renal disease; Z79.4 - long-term (current ) use of insulin; Z79.4 - intermediate project manager (current) use of insulin; Z79.4 - intermediate project manager (current) use of insulin; Z79.4 - long-term (current) use of insulin; Z99.2 - Dependence on renal dialysis Is this a current diagnosis for this admission?: Yes
[2017-11-11] MEDS: ATORVASTATIN CALCIUM 20 MG TABLET PO SCH (23:38)
[2017-11-11] MEDS: WARFARIN SODIUM 7.5 MG TABLET PO SCH (23:38)
[2017-11-12 04:59] LABS: HEMATOCRIT 30.1 % (36.0-47.0); HEMOGLOBIN 9.5 g/dL (12.0-15.5); MEAN CORPUSCULAR HEMOGLOBIN 30.9 pg (27.0-33.4); MEAN CORPUSCULAR HGB CONC 31.7 g/dL (32.0-36.0); MEAN CORPUSCULAR VOLUME 97 fl (80-97); PLATELET COUNT 266 10^3/uL (150-450); RED BLOOD COUNT 3.09 10^6/uL (3.72-5.28); RED CELL DISTRIBUTION WIDTH 21.7 % (11.5-14.0); WHITE BLOOD COUNT 4.2 10^3/uL (4.0-10.5)
[2017-11-12] MEDS: LANSOPRAZOLE 30 MG TAB.RAP.DR PO SCH (05:12)
--- NOTE | 2017-11-12 08:38 | Progress Note ---
Provider Note Provider Note: Due to logistical issues the patient did not go home last night. She remained stable and is rather anxious for discharge. She will be discharged home according to the discharge plan documented yesterday. Temp Pulse Resp BP Pulse Ox 98.3 F 71 22 H 124/61 97 11/12/17 07:20 11/12/17 07:20 11/12/17 07:20 11/12/17 07:20 11/12/17 07:20 No acute distress, somewhat annoyed about not having gone home yesterday Her heart is regular, lungs are clear, abdomen is soft, legs are without edema
[2017-11-12] MEDS ORDERED: HEPARIN SOD (PORCINE) 1,000 UNIT/ML 10 ML VIAL IV PRN (10:52)
[2017-11-12] MEDS: EPOETIN ALFA INJ 20000 UNIT/1 ML VIAL (RENAL) IV PRN (11:35)
--- NOTE | 2017-11-12 11:43 | PDOC PROGRESS REPORT ---
Subjective Progress Note for:: 11/12/17 Reason For Visit: Seen on Dialysis today. Undergoing dialysis without any issues.Denies any chest pains, dyspnea, fever or chills.Apparently has refused to go to rehab and insisting on going home. Labs and meds were reviewed. Physical Exam Vital Signs: Temp Pulse Resp BP Pulse Ox 98.3 F 71 22 H 124/61 97 11/12/17 07:20 11/12/17 07:20 11/12/17 07:20 11/12/17 07:20 11/12/17 07:20 Intake & Output 11/11/17 11/12/17 11/13/17 06:59 06:59 06:59 Intake Total 1077 982 Output Total 2500 Balance -1423 982 Weight 63.2 kg 63 kg General appearance: PRESENT: no acute distress Respiratory exam: PRESENT: clear to auscultation kee. ABSENT: crackles, rhonchi Cardiovascular exam: PRESENT: +S1, +S2, systolic murmur GI/Abdominal exam: PRESENT: normal bowel sounds, soft. ABSENT: organomegaly, tenderness Neurological exam: PRESENT: awake, oriented to person Results Laboratory Results: 11/12/17 04:07 11/11/17 04:27 11/12/17 04:07 WBC 4.2 RBC 3.09 L Hgb 9.5 L Hct 30.1 L MCV 97 MCH 30.9 MCHC 31.7 L RDW 21.7 H Plt Count 266 10/20/17 20:52 Troponin I 0.108 Impressions: Venous Doppler Study 10/20/17 14:58 IMPRESSION: NO EVIDENCE DVT OR SVT IN THE RIGHT LEG. Barium Enema w/ Air Contrast, therapeutic 10/26/17 00:00 IMPRESSION: DIVERTICULOSIS OTHERWISE UNREMARKABLE STUDY. KUB X-Ray 10/26/17 00:00 IMPRESSION: No residual fecal material. Chest X-Ray 10/26/17 07:00 IMPRESSION: Interstitial pulmonary edema. Assessment & Plan - Diagnosis (1) Acute on chronic combined systolic and diastolic CHF (congestive heart failure) Is this a current diagnosis for this admission?: Yes Plan: Stable. She is ready for discharge from a renal point of view. (2) ESRD (end stage renal disease) on dialysis Is this a current diagnosis for this admission?: Yes Plan: She is undergoing dialysis currently. It is being supervised to ensure safe and smooth procedure. Vital signs are stable. Orders were discussed with the treating dialysis nurse. Will remove approximately 2 L of fluid as tolerated. Orders given for epo. (3) Hypotension Qualifiers: Hypotension type: other hypotension type Qualified Code(s): I95.89 - Other hypotension Is this a current diagnosis for this admission?: Yes Plan: .Chronic. On Midodrin 10 mg and monitor the response.Advised on compliance with this medication as this is one of the reasons why we are unable to pull off fluids of her as an outpatient. (4) Anemia in chronic kidney disease Qualifiers: Chronic kidney disease stage: on chronic dialysis Qualified Code(s): N18.6 - End stage renal disease; D63.1 - Anemia in chronic kidney disease; D63.1 - Anemia in chronic kidney disease; Z99.2 - Dependence on renal dialysis; Z99.2 - Dependence on renal dialysis; Z99.2 - Dependence on renal dialysis; Z99.2 - Dependence on renal dialysis Is this a current diagnosis for this admission?: Yes Plan: On Procrit. (5) Diabetes mellitus, type 2 Qualifiers: Diabetes mellitus terminal press operator insulin use: with prison use Diabetes mellitus complication status: with kidney complications Diabetes mellitus complication detail: with chronic kidney disease Chronic kidney disease stage : on chronic dialysis Qualified Code(s): E11.22 - Type 2 diabetes mellitus with diabetic chronic kidney disease; N18.6 - End stage renal disease; Z99.2 - Dependence on renal dialysis; Z99.2 - Dependence on renal dialysis; Z99.2 - Dependence on renal dialysis; N18.6 - End stage renal disease; N18.6 - End stage renal disease; N18.6 - End stage renal disease; Z79.4 - prison (current ) use of insulin; Z79.4 - terminal operations supervisor (current) use of insulin; Z79.4 - terminal operations supervisor (current) use of insulin; Z79.4 - prison (current) use of insulin; Z99.2 - Dependence on renal dialysis Is this a current diagnosis for this admission?: Yes (7) Atrial fibrillation Qualifiers: Atrial fibrillation type: chronic Qualified Code(s): I48.2 - Chronic atrial fibrillation Is this a current diagnosis for this admission?: Yes
[2017-11-12] MEDS: MIDODRINE HCL 5 MG TABLET PO SCH (11:53)
[2017-11-12] MEDS: ESCITALOPRAM OXALATE 10 MG TABLET PO SCH (11:53)
[2017-11-12] MEDS: METOLAZONE 5 MG TABLET PO SCH (11:53)
[2017-11-12] MEDS: METOPROLOL TARTRATE 25 MG TABLET PO SCH (11:54)
[2017-11-12 12:06] VITALS: BP 122/48
== END 2017-11-12 13:30 | disposition home health service (06) | DRG 291 ==
LOC: ER 14:18 → EH 18:20 → 3N 23:13
PROVIDERS: ADMIT Emergency Medicine; ATTEND Emergency Medicine
PROC: 5A1D70Z Performance of Urinary Filtration, Intermittent, Less than 6 Hours Per Day (ICD-10-PCS; 2017-10-21)
PROC: 30233N1 Transfusion of Nonautologous Red Blood Cells into Peripheral Vein, Percutaneous Approach (ICD-10-PCS; principal; 2017-10-22)
PROC: 5A1D70Z Performance of Urinary Filtration, Intermittent, Less than 6 Hours Per Day (ICD-10-PCS; 2017-10-22)
PROC: 5A1D70Z Performance of Urinary Filtration, Intermittent, Less than 6 Hours Per Day (ICD-10-PCS; 2017-10-23)
PROC: 5A1D70Z Performance of Urinary Filtration, Intermittent, Less than 6 Hours Per Day (ICD-10-PCS; 2017-10-24)
PROC: 5A1D70Z Performance of Urinary Filtration, Intermittent, Less than 6 Hours Per Day (ICD-10-PCS; 2017-10-27)
PROC: 5A1D70Z Performance of Urinary Filtration, Intermittent, Less than 6 Hours Per Day (ICD-10-PCS; 2017-10-29)
PROC: 5A1D70Z Performance of Urinary Filtration, Intermittent, Less than 6 Hours Per Day (ICD-10-PCS; 2017-10-31)
PROC: 5A1D70Z Performance of Urinary Filtration, Intermittent, Less than 6 Hours Per Day (ICD-10-PCS; 2017-11-03)
PROC: 5A1D70Z Performance of Urinary Filtration, Intermittent, Less than 6 Hours Per Day (ICD-10-PCS; 2017-11-05)
PROC: 5A1D70Z Performance of Urinary Filtration, Intermittent, Less than 6 Hours Per Day (ICD-10-PCS; 2017-11-07)
PROC: 5A1D70Z Performance of Urinary Filtration, Intermittent, Less than 6 Hours Per Day (ICD-10-PCS; 2017-11-10)
PROC: 5A1D70Z Performance of Urinary Filtration, Intermittent, Less than 6 Hours Per Day (ICD-10-PCS; 2017-11-12)
DX: I13.2 Hypertensive heart and chronic kidney disease with heart failure and with stage 5 chronic kidney disease, or end stage renal disease (principal); N18.6 End stage renal disease; I50.43 Acute on chronic combined systolic (congestive) and diastolic (congestive) heart failure; J96.01 Acute respiratory failure with hypoxia; N25.81 Secondary hyperparathyroidism of renal origin; K92.1 Melena; E11.22 Type 2 diabetes mellitus with diabetic chronic kidney disease; T45.515A Adverse effect of anticoagulants, initial encounter; Z99.2 Dependence on renal dialysis; D63.1 Anemia in chronic kidney disease; M10.9 Gout, unspecified; I48.2 Chronic atrial fibrillation; I95.89 Other hypotension; E78.5 Hyperlipidemia, unspecified; M19.90 Unspecified osteoarthritis, unspecified site; F03.90 Unspecified dementia, unspecified severity, without behavioral disturbance, psychotic disturbance, mood disturbance, and anxiety; E87.5 Hyperkalemia; K57.90 Diverticulosis of intestine, part unspecified, without perforation or abscess without bleeding; Z79.01 Long term (current) use of anticoagulants; Z95.2 Presence of prosthetic heart valve; I25.2 Old myocardial infarction; Z90.710 Acquired absence of both cervix and uterus; Z87.891 Personal history of nicotine dependence; Z83.3 Family history of diabetes mellitus; Z82.5 Family history of asthma and other chronic lower respiratory diseases; Z82.49 Family history of ischemic heart disease and other diseases of the circulatory system; Z79.899 Other long term (current) drug therapy; Z88.0 Allergy status to penicillin; Z91.19 Patient's noncompliance with other medical treatment and regimen; Z91.81 History of falling
CPT/HCPCS: 36415; 36430; 71045; 71046; 74018; 74280; 80048; 80053; 81001; 82272; 82550; 82553; 82607; 82728; 82746; 82803; 82962; 83540; 83550; 83735; 83880; 84100; 84132; 84466; 84484; 85025; 85027; 85045; 85610; 85730; 86850; 86900; 86901; 86920; 87086; 93005; 93010; 93971; 96374; 99285; J1644; J1940; J3490; J7040; J7620; P9016; Q4081; S0164

== ENCOUNTER 2018-05-11 02:05 | Inpatient (IN) | payer MEDICARE, OTHER ==
--- NOTE | 2018-05-11 02:49 | RADIOLOGY REPORT (SQ) ---
EXAM DESCRIPTION: XR CHEST 1 VIEW COMPLETED DATE/TME: 05/11/2018 02:09 CLINICAL HISTORY: 77 years Female, shortness of breath COMPARISON: 4.1.18. NUMBER OF VIEWS/TECHNIQUE: 1/AP FINDINGS: Moderate lung volume, moderate mixed interstitial and airspace opacity including moderate right lower lobe opacity, moderately large cardiac silhouette, double lumen right jugular catheter tip at the inferior right atrium for which consider 8.8 cm retraction of the right central line; and intact bony thorax. IMPRESSION: Moderate mixed interstitial and airpace opacities. Interval worsening. Differential diagnosis includes CHF/pulmonary edema, multifocal pneumonia, and chronic interstitial lung disease.
[2018-05-11] MEDS ORDERED: FUROSEMIDE INJ/PF 40 MG/4 ML SDV IV ONE (02:59)
[2018-05-11 03:09] LABS: VENOUS BLOOD BASE EXCESS -5.2 mmol/L; VENOUS BLOOD HCO3 22.4 mmol/L (20-32); VENOUS BLOOD PCO2 54.3 mmHg (35-63); VENOUS BLOOD PH 7.23 (7.30-7.42)
--- NOTE | 2018-05-11 03:17 | ER Document Report ---
ED General - General Chief Complaint: Shortness Of Breath Stated Complaint: TROUBLE BREATHING Time Seen by Provider: 05/11/18 02:11 Notes: Patient is a 77-year-old female presenting to the emergency department complaining of shortness of breath. Patient stated she missed her dialysis appointment on Friday due to having a headache at that time States since missing dialysis she has had increased shortness of breath. Patient denies chest pain, abdominal pain, nausea, vomiting, fever, dysuria, cough or congestion. Patient states she is normally on oxygen at home 2 L/min. Pt. stated that she has urinated twice today and usually does not have any issues urinating. Stated that she has never been intubated before, does not currently have any advanced directives but wishes staff to use all measures to help her breath. Past medical history: Kidney failure, congestive heart failure, hypertension, anemia, atrial fibrillation Medications: Iron: Atorvastatin, digoxin, warfarin, metoprolol, Protonix, Lexapro, folic acid, metolazone, Midodrine Allergies: PCN, Vanc, HCTZ, Triamterene PCP Dr. Branch TRAVEL OUTSIDE OF THE [place] IN LAST 30 DAYS: No - Related Data Allergies/Adverse Reactions: Penicillins Allergy (Severe, Verified 10/20/17 15:33) Swelling of hands and/or feet vancomycin [Vancomycin] Adverse Reaction (Intermediate, Verified 10/20/17 15:33) Swelling of hands and/or feet hydrochlorothiazide [From Dyazide] Adverse Reaction (Verified 10/20/17 15:33) Swelling of hands and/or feet triamterene [From Dyazide] Adverse Reaction (Verified 10/20/17 15:33) Swelling of hands and/or feet Past Medical History - General Information source: Patient - Social History Smoking Status: Unknown if Ever Smoked Lives with: Family Family History: COPD, DM, Hypertension Patient has suicidal ideation: No Patient has homicidal ideation: No - Past Medical History Cardiac Medical History: Reports: Hx Atrial Fibrillation, Hx Congestive Heart Failure - Systolic and diastolic, Hx Heart Attack, Hx Hypercholesterolemia, Hx Hypertension, Hx Heart Murmur - Aortic and mitral valve replacement. Denies: Hx Coronary Artery Disease Pulmonary Medical History: Reports: Hx COPD, Hx Pneumonia Denies: Hx Asthma, Hx Bronchitis Neurological Medical History: Denies: Hx Cerebrovascular Accident, Hx Seizures Endocrine Medical History: Reports: Hx Diabetes Mellitus Type 2 Renal/ Medical History: Reports: Hx End Stage Renal Disease, Hx Hemodialysis. Denies: Hx Peritoneal Dialysis - HEMO-DIALYSIS GI Medical History: Reports: Hx Colonoscopy, Hx Endoscopy Musculoskeletal Medical History: Reports Hx Arthritis, Reports Hx Gout Psychiatric Medical History: Reports: Hx Dementia Denies: Hx Depression Past Surgical History: Reports: Hx Cardiac Surgery - artificial valves x2, Hx Hysterectomy, Hx Orthopedic Surgery - Back surgery 2, Hx Valve Replacement - Mitral and aortic valve replacement, mechanical heart valves, Other - EGD, colonoscopy, right IJV PermCath - Immunizations Hx Diphtheria, Pertussis, Tetanus Vaccination: Yes Hx Pneumococcal Vaccination: 07/28/13 Review of Systems - Review of Systems Constitutional: See HPI EENT: See HPI Cardiovascular: See HPI Respiratory: See HPI Gastrointestinal: See HPI Genitourinary: See HPI Female Genitourinary: No symptoms reported Musculoskeletal: No symptoms reported Skin: No symptoms reported Hematologic/Lymphatic: No symptoms reported Neurological/Psychological: No symptoms reported Physical Exam - Vital signs Vitals: Pulse Resp BP Pulse Ox 123 H 22 H 99/70 L 96 05/11/18 02:20 05/11/18 02:20 05/11/18 02:20 05/11/18 02:20 - Notes Notes: GENERAL: Alert, interacts well. Appears to be sleeping, easily arousable. HEAD: Normocephalic, atraumatic. EYES: Pupils equal, round, and reactive to light. Extraocular movements intact. ENT: Oral mucosa moist, tongue midline. NECK: Full range of motion. Supple. Trachea midline. LUNGS: Tachypneic @ 32 bpm, not much air movement, rales heard BL bases. Accessory muscle use noted HEART: Tachycardic, regular rhythm. No murmur. Dialysis port right anterior chest. ABDOMEN: Soft, non-tender. Non-distended. Bowel sounds present in all 4 quadrants. EXTREMITIES: Moves all 4 extremities spontaneously. No edema, normal radial and dorsalis pedis pulses bilaterally. No cyanosis. BACK: no cervical, thoracic, lumbar midline tenderness. No saddle anesthesia, normal distal neurovascular exam. NEUROLOGICAL: Alert and oriented x3. Normal speech. PSYCH: Normal affect, normal mood. SKIN: Warm, dry, normal turgor. No rashes or lesions noted. Course - Re-evaluation Re-evalutation: Discussed case multiple times with Dr. Peña. Pt. placed on BiPap for tachypnea and respiratory difficulty, even though patient continues to maintain an oxygen saturation of 99% on 2 L/min. Patient continues to deny all complaints. When asked specifically if she is having difficulty breathing she says "I guess so". Patient not able to speak in full sentences but is CAOx4. CXR shows pulmonary congestion, along with LS and BNP-Lasix was administered. Pt. continues to state she is urinating, stated she urinated twice today. Discussed case with Dr. Sheehan who agrees Pt. should be admitted for respiratory distress, chronic kidney failure, hemodialysis. Patient's respiratory rate down to 24 on BiPAP. Patient now sleeping with less accessory muscle use at this time. Dr. Sheehan will see in the emergency department. - Vital Signs Vital signs: Temp Pulse Resp BP Pulse Ox 123 H 28 H 96/68 L 99 05/11/18 02:20 05/11/18 07:02 05/11/18 07:02 05/11/18 07:02 - Laboratory Result Diagrams: 05/11/18 02:50 05/11/18 02:50 Laboratory results interpreted by me: 05/11/18 05/11/18 05/11/18 02:50 02:50 02:50 RBC 2.86 L Hgb 9.7 L Hct 28.9 L MCV 101 H MCH 33.7 H RDW 18.9 H VBG pH Potassium 5.3 H BUN 103 H Creatinine 9.97 H Est GFR ( Amer) 5 L Est GFR (Non-Af Amer) 4 L Calcium 7.5 L Direct Bilirubin 0.7 H Alkaline Phosphatase 154 H NT-Pro-B Natriuret Pep 71705 H 05/11/18 02:50 RBC Hgb Hct MCV MCH RDW VBG pH 7.23 L Potassium BUN Creatinine Est GFR ( Amer) Est GFR (Non-Af Amer) Calcium Direct Bilirubin Alkaline Phosphatase NT-Pro-B Natriuret Pep Discharge - Discharge Clinical Impression: Respiratory distress Congestive heart failure Qualifiers: Heart failure type: other Qualified Code(s): I50.9 - Heart failure, unspecified Hypotension Qualifiers: Hypotension type: unspecified hypotension type Qualified Code(s): I95.9 - Hypotension, unspecified Chronic kidney disease Qualifiers: Chronic kidney disease stage: unspecified stage Qualified Code(s): N18.9 - Chronic kidney disease, unspecified Dialysis complication Qualifiers: Encounter type: initial encounter Qualified Code(s): T82.9XXA - Unspecified complication of cardiac and vascular prosthetic device, implant and graft, initial encounter Condition: Fair Disposition: ADMITTED INPATIENT [facility] Admitted: ICU
[2018-05-11 03:19] LABS: HEMATOCRIT 28.9 % (36.0-47.0); HEMOGLOBIN 9.7 g/dL (12.0-15.5); MEAN CORPUSCULAR HEMOGLOBIN 33.7 pg (27.0-33.4); MEAN CORPUSCULAR HGB CONC 33.5 g/dL (32.0-36.0); MEAN CORPUSCULAR VOLUME 101 fl (80-97); PLATELET COUNT 231 10^3/uL (150-450); RED BLOOD COUNT 2.86 10^6/uL (3.72-5.28); RED CELL DISTRIBUTION WIDTH 18.9 % (11.5-14.0); WHITE BLOOD COUNT 4.2 10^3/uL (4.0-10.5)
[2018-05-11 03:27] LABS: ALANINE AMINOTRANSFERASE 23 U/L (9-52); ALBUMIN 3.9 g/dL (3.5-5.0); ALKALINE PHOSPHATASE 154 U/L (38-126); ANION GAP 17 (5-19); ASPARTATE AMINO TRANSFERASE 26 U/L (14-36); BILIRUBIN,DIRECT 0.7 mg/dL (0.0-0.4); BILIRUBIN,TOTAL 0.7 mg/dL (0.2-1.3); BLOOD UREA NITROGEN 103 mg/dL (7-20); CALCIUM 7.5 mg/dL (8.4-10.2); CARBON DIOXIDE 22 mmol/L (22-30); CHLORIDE 100 mmol/L (98-107); CREATINE KINASE 40 U/L (30-135); GLUCOSE 89 mg/dL (75-110); POTASSIUM 5.3 mmol/L (3.6-5.0); SODIUM 138.5 mmol/L (137-145); TOTAL PROTEIN 7.8 g/dL (6.3-8.2)
[2018-05-11 03:40] LABS: CREATINE KINASE MB 1.42 ng/mL (<4.55); TROPONIN I 0.031 ng/mL
[2018-05-11 03:45] LABS: ABSOLUTE LYMPHOCYTES# (MANUAL) 1.1 10^3/uL (0.5-4.7); ABSOLUTE MONOCYTES # (MANUAL) 0.2 10^3/uL (0.1-1.4); ABSOLUTE NEUTROPHILS# (MANUAL) 2.9 10^3/uL (1.7-8.2); BASOPHILS % (MANUAL) 0 % (0-2); EOSINOPHILS % (MANUAL) 0 % (0-6); LYMPHOCYTES % (MANUAL) 27 % (13-45); MONOCYTES % (MANUAL) 5 % (3-13); SEGMENTED NEUTROPHILS % (MAN) 68 % (42-78); TOTAL CELLS COUNTED 100
[2018-05-11 03:46] LABS: ANISOCYTOSIS 1+; PLATELET COMMENT ADEQUATE; POLYCHROMASIA 1+
[2018-05-11] MEDS ORDERED: MIDODRINE HCL 5 MG TABLET PO ONE (04:58)
[2018-05-11] MEDS ORDERED: SODIUM POLYSTYRENE SULFONATE 15 GM/60 ML PO ONE (06:04)
--- NOTE | 2018-05-11 06:05 | PDOC H&P ---
History of Present Illness Admission Date/PCP: 05/11/18 04:38 Moshe BRO MD Patient complains of: Shortness of breath History of Present Illness: TAMMY BUCKLEY is a 77 year old female with a past medical history of midodrine dependent hypotension, end-stage renal failure hemodialysis dependent Friday. Patient presents with shortness of breath after missing hemodialysis on Friday. She denies fever chills nausea vomiting cough or chest pain. In the emergency room she is found to have volume overload , hyperkalemia without peak T waves, hypotension and tachycardia. She is a poor historian unable to provide additional history. She is referred to the hospitalist for admission. Past Medical History Cardiac Medical History: Reports: Atrial Fibrillation, Congestive Heart Failure - Systolic and diastolic, Myocardial Infarction, Hyperlipidema, Hypertension, Heart Murmur - Aortic and mitral valve replacement. Denies: Coronary Artery Disease Pulmonary Medical History: Reports: Chronic Obstructive Pulmonary Disease (COPD) , Pneumonia Denies: Asthma, Bronchitis Neurological Medical History: Denies: Seizures Endocrine Medical History: Reports: Diabetes Mellitus Type 2 Renal/ Medical History: Reports: End Stage Renal Disease Musculoskeltal Medical History: Reports: Arthritis, Gout Psychiatric Medical History: Reports: Dementia Denies: Depression Hematology: Denies: Anemia Past Surgical History Past Surgical History: Reports: Hysterectomy, Orthopedic Surgery - Back surgery 2, Valve Replacement - Mitral and aortic valve replacement, mechanical heart valves, Other - EGD, colonoscopy, right IJV PermCath Social History Information Source: [facility], [facility] Lives with: Family Smoking Status: Unknown if Ever Smoked Frequency of Alcohol Use: None Hx Recreational Drug Use: No Drugs: None Hx Prescription Drug Abuse: No - Advance Directive Resuscitation Status: Full Code Family History Family History: COPD, DM, Hypertension Parental Family History Reviewed: Yes Children Family History Reviewed: Yes Sibling(s) Family History Reviewed.: Yes Medication/Allergy Home Medications: Ferrous Sulfate [Iron] 325 mg PO BID 10/06/17 Pantoprazole Sodium [Protonix] 40 mg PO DAILY 10/06/17 Digoxin [Lanoxin 0.125 mg Tablet] 0.0625 mg PO Q48H MDD NOT STARTED YET Escitalopram Oxalate [Lexapro 10 mg Tablet] 20 mg PO DAILY 10/20/17 Lorazepam [Ativan 1 mg Tablet] 1 mg PO Q6HP PRN 10/20/17 Metolazone [Zaroxolyn 5 mg Tablet] 5 mg PO Q12 10/20/17 Midodrine HCl [Proamatine 5 mg Tablet] 10 mg PO TID 10/20/17 Atorvastatin Calcium [Lipitor 20 mg Tablet] 20 mg PO QHS tablet 11/11/17 Epoetin Marc [Procrit Inj 20,000 Unit/1 ml Vial (Renal)] 20,000 unit IV .DIALYSIS PRN ml 11/11/17 Metoprolol Tartrate [Lopressor 25 mg Tablet] 25 mg PO Q12 #0 tablet 11/11/17 Midodrine HCl [Proamatine 5 mg Tablet] 10 mg PO TID tablet 11/11/17 Warfarin Sodium [Coumadin 7.5 mg Tablet] 7.5 mg PO QHS #30 tablet 11/11/17 Allergies/Adverse Reactions: Penicillins Allergy (Severe, Verified 10/20/17 15:33) Swelling of hands and/or feet vancomycin [Vancomycin] Adverse Reaction (Intermediate, Verified 10/20/17 15:33) Swelling of hands and/or feet hydrochlorothiazide [From Dyazide] Adverse Reaction (Verified 10/20/17 15:33) Swelling of hands and/or feet triamterene [From Dyazide] Adverse Reaction (Verified 10/20/17 15:33) Swelling of hands and/or feet Review of Systems ROS unobtainable: Due to mental status Physical Exam Vital Signs: Temp Pulse Resp BP Pulse Ox 123 H 32 H 93/55 L 98 05/11/18 02:20 05/11/18 04:01 05/11/18 04:01 05/11/18 04:01 General appearance: PRESENT: cooperative, disheveled, severe distress, thin Head exam: PRESENT: atraumatic, normocephalic Eye exam: PRESENT: conjunctiva pink, EOMI, PERRLA. ABSENT: scleral icterus Ear exam: PRESENT: normal external ear exam Mouth exam: PRESENT: moist, tongue midline Neck exam: ABSENT: carotid bruit, JVD, lymphadenopathy, thyromegaly Respiratory exam: PRESENT: accessory muscle use, crackles, prolonged expiratory phas, retraction, symmetrical, tachypnea. ABSENT: rhonchi Cardiovascular exam: PRESENT: tachycardia. ABSENT: diastolic murmur, rubs, systolic murmur Pulses: PRESENT: normal dorsalis pedis pul Vascular exam: PRESENT: normal capillary refill GI/Abdominal exam: PRESENT: normal bowel sounds, soft. ABSENT: distended, guarding, mass, organolmegaly, rebound, tenderness Rectal exam: PRESENT: deferred Extremities exam: PRESENT: full ROM. ABSENT: calf tenderness, clubbing, pedal edema Neurological exam: PRESENT: alert, awake, oriented to person, oriented to place , oriented to situation, CN II-XII grossly intact. ABSENT: motor sensory deficit Psychiatric exam: PRESENT: flat affect Skin exam: PRESENT: dry, intact, warm. ABSENT: cyanosis, rash Results Impressions: Chest X-Ray 05/11/18 02:09 IMPRESSION: Moderate mixed interstitial and airpace opacities. Interval worsening. Differential diagnosis includes CHF/pulmonary edema, multifocal pneumonia, and chronic interstitial lung disease. Assessment & Plan - Diagnosis (1) End stage renal failure on dialysis Is this a current diagnosis for this admission?: Yes Plan: ICU admission, BiPAP, limit additional volume, nephrology consult for dialysis. (2) Hypotension Is this a current diagnosis for this admission?: Yes Plan: Midodrine, additional pressors as needed (3) Sinus tachycardia Is this a current diagnosis for this admission?: Yes Plan: Likely secondary to missed dose of midodrine (4) Volume overload Is this a current diagnosis for this admission?: Yes Plan: Secondary to missed scheduled dialysis, nephrology consulted (5) Hyperkalemia Is this a current diagnosis for this admission?: Yes Plan: Dialysis and Kayexalate. (6) Shortness of breath Is this a current diagnosis for this admission?: Yes Plan: Secondary to volume overload, dialysis and BiPAP as needed - Time Time Spent: 50 to 70 Minutes - Inpatient Certification Medical Necessity: Need Close Monitoring Due to Risk of Patient Decompensation
--- NOTE | 2018-05-11 07:57 | EKG REPORT ---
SEVERITY:- ABNORMAL ECG - SINUS TACHYCARDIA RIGHT BUNDLE BRANCH BLOCK LEFT VENTRICULAR HYPERTROPHY OLD INFERIOR NC : Confirmed by: Michael Foster MD 11-May-2018 07:57:12
[2018-05-11] MEDS ORDERED: EPOETIN ALFA INJ 20000 UNIT/1 ML VIAL (RENAL) IV PRN (08:58)
[2018-05-11] MEDS ORDERED: EPOETIN ALFA 10,000 UNIT in SYRINGE, DISPOSABLE, 1 EACH IV PRN (09:02)
[2018-05-11] MEDS: HEPARIN SOD (PORCINE) 5,000 UNIT/ML 1 ML SYRINGE SUBCUT SCH ×2 (09:18→22:00)
[2018-05-11] MEDS ORDERED: METOPROLOL TARTRATE PF/INJ 5 MG/5 ML SDV IV ONE (14:15)
[2018-05-11] MEDS: MIDODRINE HCL 5 MG TABLET PO SCH ×2 (17:25→17:26)
[2018-05-11 19:25] LABS: INTERNATIONAL RATION (INR) 1.59; PROTHROMBIN TIME 19.7 SEC (11.4-15.4)
[2018-05-11 19:36] LABS: ANION GAP 12 (5-19); CALCIUM 7.9 mg/dL (8.4-10.2); CARBON DIOXIDE 27 mmol/L (22-30); CHLORIDE 97 mmol/L (98-107); GLUCOSE 207 mg/dL (75-110); SODIUM 136.4 mmol/L (137-145)
[2018-05-11 20:01] LABS: BLOOD UREA NITROGEN 57 mg/dL (7-20)
[2018-05-11 20:02] LABS: POTASSIUM 4.2 mmol/L (3.6-5.0)
[2018-05-11] MEDS: WARFARIN SODIUM 4 MG TABLET PO SCH (21:59)
[2018-05-12] MEDS: ACETAMINOPHEN 325 MG TABLET PO PRN ×2 (05:57→12:50)
[2018-05-12] MEDS ORDERED: (PENDING PHARMACY ID) (Warfarin Sodium 1 MG) PO SCH (10:00)
[2018-05-12] MEDS ORDERED: (PENDING PHARMACY ID) (Warfarin Sodium 7.5 MG) PO SCH (10:00)
[2018-05-12] MEDS: HEPARIN SOD (PORCINE) 5,000 UNIT/ML 1 ML SYRINGE SUBCUT SCH ×2 (10:10→22:00)
[2018-05-12] MEDS: MIDODRINE HCL 5 MG TABLET PO SCH ×3 (10:10→17:27)
--- NOTE | 2018-05-12 11:33 | PDOC CONSULTATION ---
Consultation Consult Date: 05/11/18 Consult reason:: ESRD History of Present Illness Admission Date/PCP: 05/11/18 04:38 Moshe BRO MD History of Present Illness: TAMMY BUCKLEY is a 77 year old female with a past medical history of midodrine dependent hypotension, end-stage renal failure hemodialysis dependent Friday, A-fib, COPD and pleural effusions that required pleurocentesis. Patient also has a significant history of noncompliance with medications and dialysis treatment. Missed medications are due to poor memory and a poor social support at home to help her remember to take her medications. Patient presented to the ED with shortness of breath after missing hemodialysis on Friday. She also has an issue of excessive fluid gains without the ability to remove it all due to her low bp from not taking midodrine. At the time of examination she denied chest pain, n/v/d/c. She did admit to shortness of breath. When asked if she was taking her midodrine, she looked to be confused and did not recognize the medication. Patient seen on dialysis. He is undergoing dialysis without any issues currently. Patient is awake alert and oriented. Patient denies any history of chest pains or abdominal pains. Labs and medications were reviewed with the patient. Past Medical History Cardiac Medical History: Reports: Atrial Fibrillation, Heart Murmur - Aortic and mitral valve replacement., Hyperlipidemia, Hypertension-primary, Myocardial Infarction Denies: Coronary Artery Disease Pulmonary Medical History: Reports: Chronic Obstructive Pulmonary Disease (COPD) , Pneumonia Denies: Asthma, Bronchitis Neurological Medical History: Denies: Seizures Endocrine Medical History: Reports: Diabetes Mellitus Type 2 Renal/ Medical History: Reports: End Stage Renal Disease Musculoskeltal Medical History: Reports: Arthritis, Gout Psychiatric Medical History: Reports: Dementia Denies: Depression Past Surgical History Past Surgical History: Reports: Hysterectomy, Orthopedic Surgery - Back surgery 2, Valve Replacement - Mitral and aortic valve replacement, mechanical heart valves, Other - EGD, colonoscopy, right IJV PermCath Social History Lives with: Family Smoking Status: Unknown if Ever Smoked Frequency of Alcohol Use: None Hx Recreational Drug Use: No Drugs: None Hx Prescription Drug Abuse: No - Advance Directive Resuscitation Status: Full Code Family History Parental Family History Reviewed: No Children Family History Reviewed: NA Sibling(s) Family History Reviewed.: NA Medication/Allergy Home Medications: Atorvastatin Calcium [Lipitor 20 mg Tablet] 20 mg PO QHS 05/11/18 Escitalopram Oxalate [Lexapro] 20 mg PO DAILY 05/11/18 Ferrous Sulfate [Feosol 325 mg Tablet] 325 mg PO TID 05/11/18 Folic Acid [Folvite 1 mg Tablet] 1 mg PO DAILY 05/11/18 Lorazepam [Ativan 1 mg Tablet] 1 mg PO Q6 05/11/18 Metolazone [Zaroxolyn 5 mg Tablet] 5 mg PO BID 05/11/18 Midodrine HCl 10 mg PO TID 05/11/18 Pantoprazole Sodium [Protonix] 40 mg PO BID 05/11/18 Warfarin Sodium [Coumadin 1 mg Tablet] 0.5 mg PO SUMOWEFRSA@1000 05/11/18 Warfarin Sodium [Coumadin 7.5 mg Tablet] 7.5 mg PO SUMOWEFRSA@1000 05/11/18 Warfarin Sodium [Warfarin Sodium] 1 mg PO TUTH@1000 05/11/18 Warfarin Sodium [Warfarin Sodium] 7.5 mg PO TUTH@1000 05/11/18 Allergies/Adverse Reactions: Penicillins Allergy (Severe, Verified 10/20/17 15:33) Swelling of hands and/or feet vancomycin [Vancomycin] Adverse Reaction (Intermediate, Verified 10/20/17 15:33) Swelling of hands and/or feet hydrochlorothiazide [From Dyazide] Adverse Reaction (Verified 10/20/17 15:33) Swelling of hands and/or feet triamterene [From Dyazide] Adverse Reaction (Verified 10/20/17 15:33) Swelling of hands and/or feet Review of Systems Constitutional: PRESENT: weakness. ABSENT: chills, fever(s) Eyes: ABSENT: visual disturbances Cardiovascular: PRESENT: dyspnea on exertion, orthropnea. ABSENT: chest pain, edema, palpitations Respiratory: PRESENT: cough, dyspnea Gastrointestinal: ABSENT: constipation, diarrhea, nausea, vomiting Genitourinary: ABSENT: difficulty urinating, dysuria Neurological: PRESENT: confusion, weakness. ABSENT: dizziness Physical Exam Vital Signs: Temp Pulse Resp BP Pulse Ox 97.8 F 128 H 20 97/54 L 95 05/11/18 19:35 05/11/18 18:00 05/11/18 18:20 05/11/18 18:20 05/11/18 18:20 Intake & Output 05/10/18 05/11/18 05/12/18 06:59 06:59 06:59 Intake Total 600.5 Output Total 0 Balance 600.5 Weight 81.647 kg General appearance: PRESENT: mild distress, well-developed, well-nourished Mouth exam: PRESENT: moist. ABSENT: neck supple Neck exam: PRESENT: full ROM. ABSENT: JVD Respiratory exam: PRESENT: crackles. ABSENT: accessory muscle use, clear to auscultation kee, rales, rhonchi, wheezes Cardiovascular exam: PRESENT: irregular rhythm, +S1, +S2 GI/Abdominal exam: PRESENT: soft. ABSENT: tenderness Extremities exam: PRESENT: tenderness, +1 edema. ABSENT: pedal edema, +2 edema Musculoskeletal exam: PRESENT: tenderness. ABSENT: normal inspection Neurological exam: PRESENT: alert, awake, oriented to person, oriented to place , oriented to time, oriented to situation, other - -despite being A&Ox4, she has a poor short term memory Skin exam: PRESENT: dry, intact, warm. ABSENT: cyanosis Results Impressions: Chest X-Ray 05/11/18 02:09 IMPRESSION: Moderate mixed interstitial and airpace opacities. Interval worsening. Differential diagnosis includes CHF/pulmonary edema, multifocal pneumonia, and chronic interstitial lung disease. Assessment & Plan - Diagnosis (1) Congestive heart failure (CHF) Qualifiers: Heart failure type: other Qualified Code(s): I50.9 - Heart failure, unspecified Plan: Will look to remove 2 to 3L with dialysis and as bp will allow. (2) End stage renal failure on dialysis Is this a current diagnosis for this admission?: Yes Plan: Patient seen on dialysis. He is undergoing dialysis without any issues currently. Patient is awake alert and oriented. Patient denies any history of chest pains or abdominal pains. Labs and medications were reviewed with the patient. Looking to remove 2 to 3L of fluid (3) Hyperkalemia Is this a current diagnosis for this admission?: Yes Plan: will re-evaluate after dialysis. Patient was made aware of proper low potassium diet (4) Hypotension Qualifiers: Hypotension type: unspecified hypotension type Qualified Code(s): I95.9 - Hypotension, unspecified Plan: continue on midodrine 10mg TID (5) A-fib Plan: on metoprolol and warfarin, does not consistently take either. (6) Anemia in chronic kidney disease Qualifiers: Chronic kidney disease stage: on chronic dialysis Qualified Code(s): N18.6 - End stage renal disease; D63.1 - Anemia in chronic kidney disease; D63.1 - Anemia in chronic kidney disease; Z99.2 - Dependence on renal dialysis; Z99.2 - Dependence on renal dialysis; Z99.2 - Dependence on renal dialysis; Z99.2 - Dependence on renal dialysis Plan: will give epogen during dialysis treatment (7) COPD (chronic obstructive pulmonary disease) Qualifiers: COPD type: unspecified COPD Qualified Code(s): J44.9 - Chronic obstructive pulmonary disease, unspecified Plan: patient looks to be fluid overloaded, if she does not improve then she may need steroids for her COPD.
[2018-05-12] MEDS ORDERED: DIGOXIN INJ 0.5 MG/2 ML AMPULE IV ONE (12:00)
--- NOTE | 2018-05-12 12:01 | PDOC PROGRESS REPORT ---
Subjective Progress Note for:: 05/12/18 Subjective:: 77-year-old female past medical history of hypotension my daughter and dependent , ESRD on HD TTS, A. fib, CHF, CAD, hyperlipidemia, aortic and mitral valve replacement, COPD, pleural effusion history of previous thoracentesis. She also has a history of noncompliance due to poor social support and memory problem. Patient presented to ED on 05/11/2018 complaining of shortness of breath after missing her hemodialysis on Friday. She will also have an issue of excessive volume overload without the ability to remove enough fluid due to underlying low blood pressure. In ED she was found to have volume overload with hyperkalemia without any EKG changes, hypotension and tachycardia. Nephrology was consulted and patient is a status post hemodialysis with 2 L fluid removal. 05/12/2018. No acute events overnight. On my encounter patient is laying in her bed with the head elevated not in any apparent distress. Patient is alert oriented and very pleasant and cooperative with physical and history. Patient denies any fever, chills, nausea, vomiting, diarrhea, shortness of breath, chest pain or any urinary symptoms. She states that she is living with her and her daughter who is administering her medications. I talked with her daughter Dary over the phone who is responsible for administering her medications at home. Based on my conversation with her she is knowledgeable about her mother's medications. She stated that she takes her medication but sometimes she is not compliant with her medications. She stated that she missed her last dose of Coumadin. She used to have home health who would visit her every other week to check her INR however recently the care has been transferred to [facility] where she receives her dialysis. Dr. Branch is her PCP. As per daughter last was 2.6. Reason For Visit: VOLUME OVERLOAD Physical Exam Vital Signs: Temp Pulse Resp BP Pulse Ox 98.5 F 125 H 24 H 116/66 92 05/12/18 10:00 05/12/18 10:00 05/12/18 10:35 05/12/18 10:35 05/12/18 10:35 Intake & Output 05/11/18 05/12/18 05/13/18 06:59 06:59 06:59 Intake Total 600.5 240 Output Total 2000 Balance -1399.5 240 Weight 67.7 kg General appearance: PRESENT: no acute distress, well-developed, well-nourished Head exam: PRESENT: atraumatic, normocephalic Eye exam: PRESENT: conjunctiva pink, EOMI, PERRLA. ABSENT: scleral icterus Ear exam: PRESENT: normal external ear exam Mouth exam: PRESENT: moist, tongue midline Neck exam: ABSENT: carotid bruit, JVD, lymphadenopathy, thyromegaly Respiratory exam: PRESENT: clear to auscultation kee. ABSENT: rales, rhonchi, wheezes Cardiovascular exam: PRESENT: RRR, tachycardia. ABSENT: diastolic murmur, rubs Pulses: PRESENT: normal dorsalis pedis pul Vascular exam: PRESENT: normal capillary refill GI/Abdominal exam: PRESENT: normal bowel sounds, soft. ABSENT: distended, guarding, mass, organolmegaly, rebound, tenderness Rectal exam: PRESENT: deferred Extremities exam: PRESENT: full ROM. ABSENT: calf tenderness, clubbing, pedal edema Neurological exam: PRESENT: alert, awake, oriented to person, oriented to place , oriented to time, oriented to situation, CN II-XII grossly intact. ABSENT: motor sensory deficit Psychiatric exam: PRESENT: appropriate affect, normal mood. ABSENT: homicidal ideation, suicidal ideation Skin exam: PRESENT: dry, intact, warm. ABSENT: cyanosis, rash Results Laboratory Results: 05/11/18 19:17 05/11/18 19:17 Sodium 136.4 L Potassium 4.2 D Chloride 97 L Carbon Dioxide 27 Anion Gap 12 BUN 57 H D Creatinine 6.16 H Est GFR ( Amer) 8 L Est GFR (Non-Af Amer) 7 L Glucose 207 H Calcium 7.9 L Impressions: Chest X-Ray 05/11/18 02:09 IMPRESSION: Moderate mixed interstitial and airpace opacities. Interval worsening. Differential diagnosis includes CHF/pulmonary edema, multifocal pneumonia, and chronic interstitial lung disease. Assessment & Plan - Diagnosis (1) End stage renal failure on dialysis Is this a current diagnosis for this admission?: No Plan: Status post hemodialysis on 05/11/2018. 2 L were removed. Nephrology on board. Volume restriction. Dialysis scheduled for tomorrow as per nephrology note. (2) Hypotension Qualifiers: Hypotension type: unspecified hypotension type Qualified Code(s): I95.9 - Hypotension, unspecified Is this a current diagnosis for this admission?: No Plan: Restart midodrine. Patient has a history of noncompliance as per my conversation with her daughter. (3) Volume overload Is this a current diagnosis for this admission?: Yes Plan: Due to underlying end-stage renal disease, CHF. Status post 2 L fluid removal by nephrology yesterday. Another hemodialysis scheduled for tomorrow. (4) Anemia in chronic kidney disease Qualifiers: Chronic kidney disease stage: on chronic dialysis Qualified Code(s): N18.6 - End stage renal disease; D63.1 - Anemia in chronic kidney disease; D63.1 - Anemia in chronic kidney disease; Z99.2 - Dependence on renal dialysis; Z99.2 - Dependence on renal dialysis; Z99.2 - Dependence on renal dialysis; Z99.2 - Dependence on renal dialysis Is this a current diagnosis for this admission?: No Plan: Epogen given during dialysis on 05/11/2018. (5) Atrial fibrillation Qualifiers: Atrial fibrillation type: chronic Qualified Code(s): I48.2 - Chronic atrial fibrillation Is this a current diagnosis for this admission?: Yes Plan: On low-dose metoprolol and warfarin. Patient is noncompliant with her medications. INR is 1.59 on admission. As per cardiology note on 11/03/2017 patient was referred to [facility] for possible placement of pacemaker and ablation however she was declined. (6) COPD (chronic obstructive pulmonary disease) Qualifiers: COPD type: unspecified COPD Qualified Code(s): J44.9 - Chronic obstructive pulmonary disease, unspecified Is this a current diagnosis for this admission?: No Plan: Patient presented with shortness of breath and she is status post 2 L of fluid removed during hemodialysis. Shortness of breath has improved. Unlikely this was due to COPD exacerbation. Continue nebs as needed. (7) Congestive heart failure Is this a current diagnosis for this admission?: No Plan: Heart failure with preserved ejection fraction. Echo on 09/2017 normal ejection fraction with moderate diastolic failure. Status post hemodialysis on 05/11/2018. 2 L removed. Monitor vital status and volume status. Continue cardiac diet and fluid restrictions. (8) Hypotension Is this a current diagnosis for this admission?: Yes Plan: Restarted midodrine. (9) Mechanical heart valve present Is this a current diagnosis for this admission?: No Plan: As per cardiology consult on 11/13/2017 anticoagulation was deferred to head filter press tender as patient is end-stage renal disease and on hemodialysis. Recommendation for INR was between 2.5-3.5. Restarted with warfarin. INR tomorrow.
--- NOTE | 2018-05-12 16:15 | PDOC PROGRESS REPORT ---
Subjective Progress Note for:: 05/12/18 Subjective:: Patient was seen today laying in her bed. At the time she denied chest pain, n/v /d/c. She stated that her SOB had improved after dialysis, but was not completely resolved. Reason For Visit: VOLUME OVERLOAD Physical Exam Vital Signs: Temp Pulse Resp BP Pulse Ox 98.5 F 124 H 26 H 104/50 L 91 L 05/12/18 10:00 05/12/18 14:00 05/12/18 14:50 05/12/18 14:50 05/12/18 14:50 Intake & Output 05/11/18 05/12/18 05/13/18 06:59 06:59 06:59 Intake Total 600.5 360 Output Total 2000 0 Balance -1399.5 360 Weight 67.7 kg General appearance: PRESENT: no acute distress, well-developed, well-nourished Respiratory exam: PRESENT: crackles, decreased breath sounds. ABSENT: clear to auscultation kee, rhonchi, stridor, wheezes Cardiovascular exam: PRESENT: irregular rhythm, +S1, +S2 GI/Abdominal exam: PRESENT: soft. ABSENT: tenderness Extremities exam: ABSENT: tenderness, +1 edema, +2 edema Musculoskeletal exam: PRESENT: normal inspection. ABSENT: tenderness Neurological exam: PRESENT: alert, awake, oriented to person, oriented to place , oriented to time, oriented to situation Skin exam: PRESENT: dry, intact, warm Results Laboratory Results: 05/11/18 19:17 05/11/18 19:17 Sodium 136.4 L Potassium 4.2 D Chloride 97 L Carbon Dioxide 27 Anion Gap 12 BUN 57 H D Creatinine 6.16 H Est GFR ( Amer) 8 L Est GFR (Non-Af Amer) 7 L Glucose 207 H Calcium 7.9 L Impressions: Chest X-Ray 05/11/18 02:09 IMPRESSION: Moderate mixed interstitial and airpace opacities. Interval worsening. Differential diagnosis includes CHF/pulmonary edema, multifocal pneumonia, and chronic interstitial lung disease. Assessment & Plan - Diagnosis (1) Congestive heart failure (CHF) Qualifiers: Heart failure type: other Qualified Code(s): I50.9 - Heart failure, unspecified Plan: will remove more fluid tomorrow with dialysis. After dialysis a chest x-ray will be ordered to see if the edema has improved. (2) End stage renal failure on dialysis Is this a current diagnosis for this admission?: Yes Plan: will arrange for dialysis tomorrow (3) Hyperkalemia Is this a current diagnosis for this admission?: Yes Plan: currently stable (4) Hypotension Qualifiers: Hypotension type: unspecified hypotension type Qualified Code(s): I95.9 - Hypotension, unspecified Is this a current diagnosis for this admission?: No Plan: on midodrine TID (5) A-fib Plan: currently receiving digoxin. Previously when started on digoxin, levels were checked with dialysis and found that she was not taking the medication. (6) Anemia in chronic kidney disease Qualifiers: Chronic kidney disease stage: on chronic dialysis Qualified Code(s): N18.6 - End stage renal disease; D63.1 - Anemia in chronic kidney disease; D63.1 - Anemia in chronic kidney disease; Z99.2 - Dependence on renal dialysis; Z99.2 - Dependence on renal dialysis; Z99.2 - Dependence on renal dialysis; Z99.2 - Dependence on renal dialysis Is this a current diagnosis for this admission?: No Plan: on epogen (7) COPD (chronic obstructive pulmonary disease) Qualifiers: COPD type: unspecified COPD Qualified Code(s): J44.9 - Chronic obstructive pulmonary disease, unspecified Is this a current diagnosis for this admission?: No
--- NOTE | 2018-05-12 18:32 | XCELERA REPORT ---
[address] [address] Transthoracic Echocardiogram Report Name: TAMMY BUCKLEY Age: 77 yrs Gender: Female : 1940 [facility] Status[facility] Study Date: 05/12/2018 10:08 AM Procedure: A two-dimensional transthoracic echocardiogram with color flow and Doppler was performed. The study was technically difficult with many images being suboptimal in quality. Reason For Study: a fib History: ATRIAL FIBRILLATION. Ordering Physician: SOPHIA HOYT Performed By: Soila Matt Interpretation Summary RECOMMEND ANTIBIOTICS PRIOR TO GI,,AND DENTAL PROCEDURES / SURGERIES FOR SBE PROPHYLAXIS. UPPER NORMAL lLV SIZE.NO LVH Doppler measurements suggest normal left ventricular diastolic function LV EF is 45% TO 50% Left ventricular systolic function is mildly reduced. THE ANTEROSEPTUM,THE iIVSEPTUM AND INFERIOR LANDIS ARE HYPOKINETIC. Right atrium not well visualized secondary to technical limitations UPPER NORMAL LA SIZE. THERE IS NO RESTENOSIS, AND TRACE MR PRESENT. THERE IS RESTENOSIS OF THE PROSTHETIC AORTIC VALVE WITH PEAK GRADIENT OF 40 MM OF Hg.NO AR. There is no tricuspid stenosis. There is a severe amount of tricuspid regurgitation There is servere pulmonary hypertension by echo RVSP IS 79 TO 784MM OF Hg , WITH RA MEAN OF 15 TO 20. There is no pulmonic valvular stenosis. There is a moderate amount of pulmonic regurgitation There is no pericardial effusion. RECOMMEND ANTIBIOTICS PRIOR TO GI,,AND DENTAL PROCEDURES / SURGERIES FOR SBE PROPHYLAXIS. MMode/2D Measurements & Calculations RVDd: 3.3 cm LVIDd: 5.6 cm FS: 29.6 % Ao root diam: 2.6 cm IVSd: 0.90 cm LVIDs: 4.0 cm EDV(Teich): 154.8 ml Ao root area: 5.4 cm2 LVPWd: 1.1 cm ESV(Teich): 68.1 ml EF(Teich): 56.0 % LVOT diam: 1.6 cm LVOT area: 1.9 cm2 Doppler Measurements & Calculations MV E max yvon: MV V2 max: MV dec slope: Ao V2 max: 197.1 cm/sec 214.2 cm/sec 314.6 cm/sec MV A max yvon: MV max P cm/sec2 Ao max P.8 mmHg 51.3 cm/sec 18.4 mmHg MV dec time: Ao V2 mean: MV E/A: 3.8 MV V2 mean: 0.17 sec 200.5 cm/sec 96.9 cm/sec Ao mean PG: MV mean P.1 mmHg 5.1 mmHg Ao V2 VTI: 51.8 cm MV V2 VTI: 31.9 cm SUNNY(I,D): 0.50 cm2 SUNNY(V,D): 0.47 cm2 MVA(VTI): 0.81 cm2 LV V1 max PG: SV(LVOT): 25.8 ml PA V2 max: PI max yvon: 2.5 mmHg 113.4 cm/sec 292.2 cm/sec LV V1 mean PG: PA max P.1 mmHgPI max P.1 mmHg 1.2 mmHg PI dec slope: LV V1 max: 78.4 cm/sec 396.8 cm/sec2 LV V1 mean: 51.8 cm/sec LV V1 VTI: 13.6 cm TR max yvon: 357.3 cm/sec TR max P.5 mmHg Left Ventricle UPPER NORMAL lLV SIZE.NO LVH. LV EF is 45% TO 50%. Left ventricular systolic function is mildly reduced. Doppler measurements suggest normal left ventricular diastolic function. THE ANTEROSEPTUM,THE iIVSEPTUM AND INFERIOR LANDIS ARE HYPOKINETIC. There is no thrombus. Right Ventricle NOT WELL SEEN , BUT SUSPECT MILD ENLARGEMENT.MODERATELY REDUCED RV SYSTOLIC FUNCTION. Atria Right atrium not well visualized secondary to technical limitations. UPPER NORMAL LA SIZE. Mitral Valve There is a mechanical mitral valve. THERE IS NO RESTENOSIS, AND TRACE MR PRESENT. Aortic Valve There is a mechanical aortic valve. THERE IS RESTENOSIS OF THE PROSTHETIC AORTIC VALVE WITH PEAK GRADIENT OF 40 MM OF Hg.NO AR. Tricuspid Valve There is no tricuspid stenosis. There is a severe amount of tricuspid regurgitation. There is servere pulmonary hypertension by echo. RVSP IS 79 TO 784MM OF Hg , WITH RA MEAN OF 15 TO 20. Pulmonic Valve There is no pulmonic valvular stenosis. There is a moderate amount of pulmonic regurgitation. Great Vessels The aortic root is not well visualized but is probably normal size. The inferior vena cava appeared dilated and decreased < 50% with respiration (RAP 15-20 mmHg). Effusions There is no pericardial effusion. : SOPHIA HOYT > Elizabeth Unger
[2018-05-12] MEDS: ATORVASTATIN CALCIUM 20 MG TABLET PO SCH (21:59)
[2018-05-12] MEDS ORDERED: WARFARIN SODIUM 7.5 MG TABLET PO SCH (22:00)
[2018-05-12] MEDS ORDERED: WARFARIN SODIUM 1 MG TABLET PO SCH (22:00)
[2018-05-12] MEDS: LORAZEPAM 1 MG TABLET PO PRN (22:07)
--- NOTE | 2018-05-12 23:01 | PDOC CONSULTATION ---
Consultation-Blank Consultation: CARDIOLOGY CONSULTATION by Dr. Elizabeth Unger. DATE CONSULTATION: Patient seen at 11:50 AM on 05/12/2018. REASON FOR CONSULTATION: Atrial fibrillation with fast ventricular response. Selected Entries 05/12/18 05/12/18 05/12/18 11:35 11:49 12:00 Pulse Rate 124 H Heart Rate ( 126 Monitors) Respiratory 22 H 27 H Rate Blood Pressure 117/69 Blood Pressure 104/58 L [Upper Arm] Blood Pressure 85 Mean Blood Pressure 73 Mean [Upper Arm ] Blood Pressure Supine Position [Upper Arm] O2 Sat by Pulse 94 Oximetry Oxygen Delivery Nasal Cannula Method ( includes room air) Oxygen Flow 1 Rate 05/11/18 05/11/18 05/11/18 02:50 02:50 02:50 WBC 4.2 Hgb 9.7 L Hct 28.9 L Plt Count 231 PT INR Sodium Potassium Chloride Carbon Dioxide BUN Creatinine Est GFR ( Amer) Glucose Calcium 7.5 L Total Bilirubin 0.7 Direct Bilirubin 0.7 H Neonat Total Bilirubin Not Reportable Neonat Direct Bilirubin Not Reportable Neonat Indirect Bili Not Reportable AST 26 ALT 23 Alkaline Phosphatase 154 H Creatine Kinase 40 CK-MB (CK-2) 1.42 Troponin I 0.031 NT-Pro-B Natriuret Pep 90183 H Total Protein 7.8 Albumin 3.9 05/11/18 05/11/18 19:17 19:17 WBC Hgb Hct Plt Count PT 19.7 H INR 1.59 Sodium 136.4 L Potassium 4.2 D Chloride 97 L Carbon Dioxide 27 BUN 57 H D Creatinine 6.16 H Est GFR ( Amer) 8 L Glucose 207 H Calcium 7.9 L Total Bilirubin Direct Bilirubin Neonat Total Bilirubin Neonat Direct Bilirubin Neonat Indirect Bili AST ALT Alkaline Phosphatase Creatine Kinase CK-MB (CK-2) Troponin I NT-Pro-B Natriuret Pep Total Protein Albumin 05/11/18 02:59 Furosemide [Lasix Inj/Pf 40 mg/4 ml Sdv] 80 mg IV NOW ONE 05/11/18 04:58 Midodrine HCl [Proamatine 5 mg Tablet] 10 mg PO NOW ONE 05/11/18 06:04 Sodium Polystyrene Sulfonate [Kayexalate 15 gm/60 ml Susp 60 ml] 30 gm PO NOW ONE 05/11/18 10:00 Heparin Sodium,Porcine [Heparin Inj 5,000 Units/ml 1 ml Syringe] 5,000 unit SUBCUT Q12 05/11/18 14:00 Normal Saline [Saline Flush 2.5 ml Monoject Prefil Syrin] 2.5 ml IV Q8 05/11/18 14:15 Metoprolol Tartrate [Lopressor Inj/Pf 5 mg/5 ml Sdv] 2.5 mg IV NOW ONE 05/11/18 15:25 Midodrine HCl [Proamatine 5 mg Tablet] 10 mg PO TID 05/11/18 15:30 Flu Vacc [id number](6Mos Up)/Pf [Fluarix Adlt Quad Vac 0.5 ml Syr] 0.5 ml IM .DISCHARGE PRN 05/11/18 22:00 Warfarin Sodium [Coumadin 4 mg Tablet] 8 mg PO [id number]/[id number] 05:50 Acetaminophen [Tylenol 325 mg Tablet] 650 mg PO Q4HP PRN 05/12/18 12:00 Digoxin Inj [Lanoxin Inj 0.5 mg/2 ml Ampule] 0.125 mg IV NOW 05/12/18 21:58 Lorazepam [Ativan 1 mg Tablet] 1 mg PO Q6HP PRN 05/12/18 22:00 Atorvastatin Calcium [Lipitor 20 mg Tablet] 20 mg PO QHS Warfarin Sodium [Coumadin 1 mg Tablet] 1 mg PO TuTh@0 Warfarin Sodium [Coumadin 7.5 mg Tablet] 7.5 mg PO TuTh@0 05/13/18 05:00 Epoetin Marc [Procrit Inj 20,000 Unit/1 ml Vial (Renal)] 10,000 unit Syringe, Disposable, [Syringe Base 1 Each] 1 each IV .DIALYSIS 05/13/18 06:00 Lansoprazole [Prevacid 30 mg Odt Tablet] 30 mg PO BID@0600,1700 05/13/18 10:00 Escitalopram Oxalate [Lexapro 10 mg Tablet] 20 mg PO DAILY Ferrous Sulfate [Feosol 325 mg Tablet] 325 mg PO TID Folic Acid [Folvite 1 mg Tablet] 1 mg PO DAILY
[2018-05-13] MEDS ORDERED: LORAZEPAM 1 MG TABLET PO SCH
[2018-05-13] MEDS: ACETAMINOPHEN 325 MG TABLET PO PRN (01:19)
[2018-05-13] MEDS ORDERED: DICYCLOMINE HCL INJ 20 MG/2 ML AMPULE IM ONE (04:45)
[2018-05-13] MEDS ORDERED: EPOETIN ALFA INJ 20000 UNIT/1 ML VIAL (RENAL) IV PRN (05:00)
[2018-05-13] MEDS ORDERED: EPOETIN ALFA 10,000 UNIT in SYRINGE, DISPOSABLE, 1 EACH IV PRN (05:00)
[2018-05-13 05:26] LABS: HEMATOCRIT 30.5 % (36.0-47.0); HEMOGLOBIN 10.2 g/dL (12.0-15.5); MEAN CORPUSCULAR HEMOGLOBIN 33.2 pg (27.0-33.4); MEAN CORPUSCULAR HGB CONC 33.5 g/dL (32.0-36.0); MEAN CORPUSCULAR VOLUME 99 fl (80-97); PLATELET COUNT 220 10^3/uL (150-450); RED BLOOD COUNT 3.07 10^6/uL (3.72-5.28); RED CELL DISTRIBUTION WIDTH 18.3 % (11.5-14.0); WHITE BLOOD COUNT 4.2 10^3/uL (4.0-10.5)
[2018-05-13 05:32] LABS: INTERNATIONAL RATION (INR) 1.56; PROTHROMBIN TIME 19.4 SEC (11.4-15.4)
[2018-05-13] MEDS: LANSOPRAZOLE 30 MG TAB.RAP.DR PO SCH ×2 (05:33→17:55)
[2018-05-13 05:54] LABS: ANION GAP 16 (5-19); BLOOD UREA NITROGEN 74 mg/dL (7-20); CALCIUM 8.9 mg/dL (8.4-10.2); CARBON DIOXIDE 22 mmol/L (22-30); CHLORIDE 98 mmol/L (98-107); GLUCOSE 94 mg/dL (75-110); POTASSIUM 4.5 mmol/L (3.6-5.0); SODIUM 136.1 mmol/L (137-145)
[2018-05-13] MEDS: LORAZEPAM 1 MG TABLET PO PRN ×3 (08:02→20:37)
[2018-05-13] MEDS ORDERED: MIDODRINE HCL 5 MG TABLET PO SCH (10:00)
[2018-05-13] MEDS ORDERED: WARFARIN SODIUM PO SCH (10:00)
[2018-05-13] MEDS ORDERED: (PENDING PHARMACY ID) (Midodrine Hcl [Midodrine Hcl] 10 MG) PO SCH (10:00)
[2018-05-13] MEDS ORDERED: (PENDING PHARMACY ID) (Warfarin Sodium 7.5 MG) PO SCH (10:00)
[2018-05-13] MEDS: ESCITALOPRAM OXALATE 10 MG TABLET PO SCH (10:32)
[2018-05-13] MEDS: HEPARIN SOD (PORCINE) 5,000 UNIT/ML 1 ML SYRINGE SUBCUT SCH ×2 (10:32→21:32)
[2018-05-13] MEDS: MIDODRINE HCL 5 MG TABLET PO SCH ×3 (10:32→17:55)
[2018-05-13] MEDS: FERROUS SULFATE 325 MG TABLET PO SCH ×3 (10:32→17:55)
[2018-05-13] MEDS: FOLIC ACID 1 MG TABLET PO SCH (10:32)
[2018-05-13] MEDS: DILTIAZEM HCL/D5W 125 MG/125 ML RTUINJ IV PRN ×2 (11:07→21:23)
--- NOTE | 2018-05-13 15:14 | PDOC PROGRESS REPORT ---
Subjective Progress Note for:: 05/13/18 Subjective:: 77-year-old female past medical history of hypotension my daughter and dependent , ESRD on HD TTS, A. fib, CHF, CAD, hyperlipidemia, aortic and mitral valve replacement, COPD, pleural effusion history of previous thoracentesis. She also has a history of noncompliance due to poor social support and memory problem. Patient presented to ED on 05/11/2018 complaining of shortness of breath after missing her hemodialysis on Friday. She will also have an issue of excessive volume overload without the ability to remove enough fluid due to underlying low blood pressure. In ED she was found to have volume overload with hyperkalemia without any EKG changes, hypotension and tachycardia. Nephrology was consulted and patient is a status post hemodialysis with 2 L fluid removal. 05/12/2018. No acute events overnight. On my encounter patient is laying in her bed with the head elevated not in any apparent distress. Patient is alert oriented and very pleasant and cooperative with physical and history. Patient denies any fever, chills, nausea, vomiting, diarrhea, shortness of breath, chest pain or any urinary symptoms. She states that she is living with her and her daughter who is administering her medications. I talked with her daughter Dary over the phone who is responsible for administering her medications at home. Based on my conversation with her she is knowledgeable about her mother's medications. She stated that she takes her medication but sometimes she is not compliant with her medications. She stated that she missed her last dose of Coumadin. She used to have home health who would visit her every other week to check her INR however recently the care has been transferred to [facility] [place] where she receives her dialysis. Dr. Branch is her PCP. As per daughter last was 2.6. 05/13/2018. No acute events overnight. Upon my encounter patient is laying in bed does not seem to be in any acute distress. He is alert and oriented and she is very pleasant and cooperative with physical examination. She is scheduled for hemodialysis today. She denies any fever, chills, nausea, vomiting, diarrhea, constipation, chest pain or any urinary symptoms. Reason For Visit: VOLUME OVERLOAD Physical Exam Vital Signs: Temp Pulse Resp BP Pulse Ox 98.3 F 123 H 20 110/85 97 05/13/18 11:14 05/13/18 11:14 05/13/18 11:14 05/13/18 11:14 05/13/18 11:14 Intake & Output 05/12/18 05/13/18 05/14/18 06:59 06:59 06:59 Intake Total 600.5 370 423 Output Total 2000 0 Balance -1399.5 370 423 Weight 67.7 kg 67.7 kg General appearance: PRESENT: no acute distress, well-developed, well-nourished Head exam: PRESENT: atraumatic, normocephalic Eye exam: PRESENT: conjunctiva pink, EOMI, PERRLA. ABSENT: scleral icterus Ear exam: PRESENT: normal external ear exam Mouth exam: PRESENT: moist, tongue midline Neck exam: ABSENT: carotid bruit, JVD, lymphadenopathy, thyromegaly Respiratory exam: PRESENT: clear to auscultation kee. ABSENT: rales, rhonchi, wheezes Cardiovascular exam: PRESENT: RRR, tachycardia, other - High metallic single heart sound.. ABSENT: diastolic murmur, rubs, systolic murmur Pulses: PRESENT: normal dorsalis pedis pul Vascular exam: PRESENT: normal capillary refill GI/Abdominal exam: PRESENT: normal bowel sounds, soft. ABSENT: distended, guarding, mass, organolmegaly, rebound, tenderness Rectal exam: PRESENT: deferred Extremities exam: PRESENT: full ROM. ABSENT: calf tenderness, clubbing, pedal edema Neurological exam: PRESENT: alert, awake, oriented to person, oriented to place , oriented to time, oriented to situation, CN II-XII grossly intact. ABSENT: motor sensory deficit Psychiatric exam: PRESENT: appropriate affect, normal mood. ABSENT: homicidal ideation, suicidal ideation Skin exam: PRESENT: dry, intact, warm. ABSENT: cyanosis, rash Results Laboratory Results: 05/13/18 04:47 05/13/18 04:47 05/13/18 05/13/18 04:47 04:47 WBC 4.2 RBC 3.07 L Hgb 10.2 L Hct 30.5 L MCV 99 H MCH 33.2 MCHC 33.5 RDW 18.3 H Plt Count 220 Sodium 136.1 L Potassium 4.5 Chloride 98 Carbon Dioxide 22 Anion Gap 16 BUN 74 H Creatinine 8.29 H Est GFR ( Amer) 6 L Est GFR (Non-Af Amer) 5 L Glucose 94 Calcium 8.9 Impressions: Chest X-Ray 05/11/18 02:09 IMPRESSION: Moderate mixed interstitial and airpace opacities. Interval worsening. Differential diagnosis includes CHF/pulmonary edema, multifocal pneumonia, and chronic interstitial lung disease. Assessment & Plan - Diagnosis (1) End stage renal failure on dialysis Is this a current diagnosis for this admission?: No Plan: Status post hemodialysis on 05/11/2018. 2 L were removed. Nephrology on board. Volume restriction. Hemodialysis today.. (2) Hypotension Qualifiers: Hypotension type: unspecified hypotension type Qualified Code(s): I95.9 - Hypotension, unspecified Is this a current diagnosis for this admission?: No Plan: Normotensive. Restarted midodrine. Patient has a history of noncompliance as per my conversation with her daughter. (3) Volume overload Is this a current diagnosis for this admission?: Yes Plan: Due to underlying end-stage renal disease, CHF. Status post 2 L fluid removal by nephrology yesterday. Hemodialysis today (4) Anemia in chronic kidney disease Qualifiers: Chronic kidney disease stage: on chronic dialysis Qualified Code(s): N18.6 - End stage renal disease; D63.1 - Anemia in chronic kidney disease; D63.1 - Anemia in chronic kidney disease; Z99.2 - Dependence on renal dialysis; Z99.2 - Dependence on renal dialysis; Z99.2 - Dependence on renal dialysis; Z99.2 - Dependence on renal dialysis Is this a current diagnosis for this admission?: No Plan: Epogen given during dialysis on 05/11/2018. H&H stable. (5) Atrial fibrillation Qualifiers: Atrial fibrillation type: chronic Qualified Code(s): I48.2 - Chronic atrial fibrillation Is this a current diagnosis for this admission?: Yes Plan: [id number] 4. On low-dose metoprolol and warfarin. Not rate controlled. Patient has history of hypertension and she is receiving the daughter agreed for pedro luis. Patient is noncompliant with her medications. INR is 1.59 on admission. As per cardiology note on 11/03/2017 patient was referred to [facility] for possible placement of pacemaker and ablation however she was declined. (6) COPD (chronic obstructive pulmonary disease) Qualifiers: COPD type: unspecified COPD Qualified Code(s): J44.9 - Chronic obstructive pulmonary disease, unspecified Is this a current diagnosis for this admission?: No Plan: Patient presented with shortness of breath and she is status post 2 L of fluid removed during hemodialysis. Shortness of breath has improved. Unlikely this was due to COPD exacerbation. Continue nebs as needed. (7) Congestive heart failure Is this a current diagnosis for this admission?: No Plan: Heart failure with preserved ejection fraction. Echo on 05/12/2018 ejection fraction is 45-50%. Echo on 09/2017 normal ejection fraction with moderate diastolic failure. Status post hemodialysis on 05/11/2018. 2 L removed. Monitor vital status and volume status. Continue cardiac diet and fluid restrictions. (8) Hypotension Is this a current diagnosis for this admission?: Yes Plan: Normotensive. Continue Midodrine (9) Mechanical heart valve present Is this a current diagnosis for this admission?: No Plan: On Coumadin. Echo from 05/13/2018 shows restenosis of the prosthetic aortic valve with peak gradient of 40 mmHg with no regurgitation and mechanical mitral valve no restenosis with trace mitral regurgitation. Cardiology following. Recommendation for INR was between 2.5-3.5. Restarted with warfarin. INR tomorrow. Notes. 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
--- NOTE | 2018-05-13 15:21 | PDOC PROGRESS REPORT ---
Subjective Progress Note for:: 05/13/18 Subjective:: Patient seen on dialysis. He is undergoing dialysis without any issues currently. Patient is awake alert and oriented. Patient denies any history of chest pains, SOB, n/v/d/c. Labs and medications were reviewed with the patient. Reason For Visit: VOLUME OVERLOAD Physical Exam Vital Signs: Temp Pulse Resp BP Pulse Ox 98.3 F 123 H 20 110/85 97 05/13/18 11:14 05/13/18 11:14 05/13/18 11:14 05/13/18 11:14 05/13/18 11:14 Intake & Output 05/12/18 05/13/18 05/14/18 06:59 06:59 06:59 Intake Total 600.5 370 423 Output Total 2000 0 Balance -1399.5 370 423 Weight 67.7 kg 67.7 kg General appearance: PRESENT: no acute distress, well-developed, well-nourished Mouth exam: PRESENT: moist. ABSENT: neck supple Neck exam: PRESENT: full ROM. ABSENT: JVD Respiratory exam: PRESENT: crackles, unlabored. ABSENT: accessory muscle use, clear to auscultation kee, rales, rhonchi, tachypnea, wheezes Cardiovascular exam: PRESENT: irregular rhythm, +S1, +S2 GI/Abdominal exam: PRESENT: soft. ABSENT: tenderness Extremities exam: ABSENT: pedal edema, tenderness, +1 edema, +2 edema Musculoskeletal exam: PRESENT: normal inspection. ABSENT: tenderness Neurological exam: PRESENT: alert, awake, oriented to person, oriented to place , oriented to time, oriented to situation Skin exam: PRESENT: dry, intact, warm. ABSENT: cyanosis Results Laboratory Results: 05/13/18 04:47 05/13/18 04:47 05/13/18 05/13/18 04:47 04:47 WBC 4.2 RBC 3.07 L Hgb 10.2 L Hct 30.5 L MCV 99 H MCH 33.2 MCHC 33.5 RDW 18.3 H Plt Count 220 Sodium 136.1 L Potassium 4.5 Chloride 98 Carbon Dioxide 22 Anion Gap 16 BUN 74 H Creatinine 8.29 H Est GFR ( Amer) 6 L Est GFR (Non-Af Amer) 5 L Glucose 94 Calcium 8.9 Impressions: Chest X-Ray 10/15/18 02:09 IMPRESSION: Moderate mixed interstitial and airpace opacities. Interval worsening. Differential diagnosis includes CHF/pulmonary edema, multifocal pneumonia, and chronic interstitial lung disease. Assessment & Plan - Diagnosis (1) Congestive heart failure (CHF) Qualifiers: Qualified Code(s): I50.9 - Heart failure, unspecified Plan: improved, removing 2 to 3L as tolerated. Will look to order an x-ray for after dialysis. Currently she is at baseline for her SOB. (2) End stage renal failure on dialysis Is this a current diagnosis for this admission?: No Plan: Patient seen on dialysis. He is undergoing dialysis without any issues currently. Patient is awake alert and oriented. Patient denies any history of chest pains or abdominal pains. Labs and medications were reviewed with the patient. Orders were discussed with Anna, the dialysis nurse. dialyzes Friday, and Friday. (3) Hyperkalemia Is this a current diagnosis for this admission?: Yes Plan: stable (4) Hypotension Qualifiers: Qualified Code(s): I95.9 - Hypotension, unspecified Is this a current diagnosis for this admission?: No Plan: on midodrine 10mg TID (5) A-fib Plan: currently on a cardezim drip, still remains elevated in the 110s and 120s. (6) Anemia in chronic kidney disease Qualifiers: Qualified Code(s): N18.6 - End stage renal disease; D63.1 - Anemia in chronic kidney disease; D63.1 - Anemia in chronic kidney disease; Z99.2 - Dependence on renal dialysis; Z99.2 - Dependence on renal dialysis; Z99.2 - Dependence on renal dialysis; Z99.2 - Dependence on renal dialysis Is this a current diagnosis for this admission?: No Plan: on epogen with dialysis (7) COPD (chronic obstructive pulmonary disease) Qualifiers: Qualified Code(s): J44.9 - Chronic obstructive pulmonary disease, unspecified Is this a current diagnosis for this admission?: No Plan: stable
[2018-05-13] MEDS ORDERED: DIGOXIN INJ 0.5 MG/2 ML AMPULE IV ONE (20:00)
--- NOTE | 2018-05-13 20:02 | Progress Note ---
Provider Note Provider Note: Cardiology PROGRESS NOTE by Dr. Elizabeth Unger on 05/13/2018. SUBJECTIVE: The patient denies any shortness of breath, PND orthopnea or chest pain or discomfort. She still remains in atrial fibrillation with rapid ventricular response in the 120s. Her blood pressure is slightly better on Midrin. There no TIA CVA symptoms. There is no signs or symptoms of malfunction of the prosthetic aortic/mitral valve, in spite of the patient's INR being subtherapeutic. We will give extra dose of dose of digoxin once the disc level is available. Also will give the patient extra dose of Coumadin tonight. The patient is having hemodialysis later today. Also will start the patient on Cardizem drip/infusion, to see if this will control the patient's heart rate. 05/13/18 11:14 Temperature 98.3 F Temperature Oral Source Pulse Rate 123 H Respiratory 20 Rate Blood Pressure 110/85 Blood Pressure 93 Mean BP Location Left Arm BP Position Supine O2 Sat by Pulse 97 Oximetry Oxygen Flow 2.00 Rate Oxygen Delivery Nasal Cannula Method PHYSICAL EXAMINATION: The patient is a frail build. Appears to be chronically ill. But in spite of this and is in no acute distress. She is not aware of any palpitations or feeling of rapid beating of her heart. 05/13/18 05/13/18 05/13/18 04:47 04:47 04:47 WBC 4.2 Hgb 10.2 L Hct 30.5 L MCV 99 H Plt Count 220 PT 19.4 H INR 1.56 Sodium 136.1 L Potassium 4.5 Chloride 98 Carbon Dioxide 22 Anion Gap 16 BUN 74 H Creatinine 8.29 H Est GFR ( Amer) 6 L Glucose 94 Calcium 8.9 Phosphorus Digoxin HEAD: Is atraumatic normocephalic. EYES: Pupils are equal round regular reactive to light and accommodation. Extraocular movements are normal. There is no clinical pallor. ENT: Is negative. Neck is supple there is no JVD. There is transmitted aortic stenosis murmur over both carotids. Has mild carotid delay. There is no lymphadenopathy. There is no JVD. There is no carotid bruits. There is no lymphadenopathy trachea central LUNGS are clear to auscultation percussion with slightly diminished air entry and prolonged expiration. HEART: S1-S2 is heard. S1 is of variable intensity. Prosthetic crisp clicks of the mitral and aortic valve heard well. There is murmur of aortic stenosis present there is no aortic regurgitation murmur. There is no mitral regurgitation murmur. There is no rub there is no S3 or S4 gallops. ABDOMEN: Is soft nontender there is no hepatosplenomegaly. Bowel sounds well heard. EXTREMITIES: Femorals are diminished. There is no femoral bruits. Leg pulses are diminished. There is no pedal edema. There is no DVT S cellulitis. There is no sinus or clubbing. There is no calf tenderness. 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 PSYCHIATRIC: The patient judgment insight and insight at this time appear to be intact. The patient is not agitated. 05/13/18 05/13/18 04:47 04:47 WBC Hgb Hct MCV Plt Count PT INR Sodium Potassium Chloride Carbon Dioxide Anion Gap BUN Creatinine Est GFR ( Amer) Glucose Calcium Phosphorus 6.6 H Digoxin < 0.40 L Echo report: Echo done yesterday shows mildly reduced LV ejection fraction. With wall motion abnormalities. See reports. There is moderate restenosis of the aortic valve prosthesis. There is no aortic regurgitation. There is no mitral stenosis or mitral valve regurgitation. There is no pericardial effusion. There is severe tricuspid regurgitation. There is severe pulmonary hypertension. This has been discussed with the patient. IMPRESSION/RECOMMENDATION: 1. Atrial fibrillation with fast ventricular response. Will give extra dose of digoxin later once the digoxin level is subtherapeutic. Also will start the patient on Cardizem drip infusion and increase as tolerated with blood pressure. If there is difficulty controlling the patient's ventricular response to the atrial fibrillation, one option might be to consider a VVI pacemaker placement to pace the ventricle, and preferably a biventricular AICD, and ablation of the AV node. Since the patient's INR has been subtherapeutic., I am hesitant to start the patient on amiodarone, since if she converts there is a chance that the patient might have a stroke. The other option is to see if the patient can have a DREA guided cardioversion done. This procedure needs to be done in a tertiary care center, since this is not available here. 2. Prosthetic [place] aortic valve replacement and mitral valve replacement. There is moderate restenosis of the aortic valve. Also the patient is INR is subtherapeutic. We will give an extra dose of Coumadin along with her usual dose of Coumadin tonight. 3. Severe tricuspid regurgitation: We will see if Cardizem will help this. We will get records from [facility] a month since the patient a few months ago was sent there for possible tricuspid valve annuloplasty. 4. Severe pulmonary hypertension. 5. Past history of hypertension. At present blood pressure low requiring Midrin to be able to give medicines that can cause the blood pressure to go down. 6. End-stage renal disease: Continue hemodialysis. 7. EARLY DEMENTIA: At present patient seems to be doing fairly well. 8. COPD: No acute exacerbation. Her medications have been reviewed, medications added. Discussed with the attending physician and coordinated care with them. Medical decision making is of high complexity. 40 minutes spent on this patient more than 50% of time spent in direct patient care. We will follow with you.
[2018-05-13] MEDS: WARFARIN SODIUM 4 MG TABLET PO SCH (21:31)
[2018-05-13] MEDS: ATORVASTATIN CALCIUM 20 MG TABLET PO SCH (21:32)
[2018-05-13] MEDS ORDERED: WARFARIN SODIUM 7.5 MG TABLET PO ONE (22:00)
[2018-05-14] MEDS: DILTIAZEM HCL/D5W 125 MG/125 ML RTUINJ IV PRN ×2 (04:29→12:41)
[2018-05-14] MEDS: LANSOPRAZOLE 30 MG TAB.RAP.DR PO SCH ×2 (05:41→17:24)
[2018-05-14 06:14] LABS: ABSOLUTE BASOPHILS # (AUTO) 0.1 10^3/uL (0.0-0.2); ABSOLUTE EOSINOPHILS # (AUTO) 0.1 10^3/uL (0.0-0.6); ABSOLUTE LYMPHOCYTES (AUTO) 0.3 10^3/uL (0.5-4.7); ABSOLUTE MONOCYTES (AUTO) 0.7 10^3/uL (0.1-1.4); ABSOLUTE NEUT (AUTO) 3.4 10^3/uL (1.7-8.2); BASOPHILS % (AUTO) 1.9 % (0-2); EOSINOPHILS % (AUTO) 3.1 % (0-6); HEMATOCRIT 29.9 % (36.0-47.0); LYMPHOCYTES % (AUTO) 5.5 % (13-45); MEAN CORPUSCULAR HEMOGLOBIN 33.4 pg (27.0-33.4); MEAN CORPUSCULAR HGB CONC 33.4 g/dL (32.0-36.0); MEAN CORPUSCULAR VOLUME 100 fl (80-97); MONOCYTES % (AUTO) 14.7 % (3-13); PLATELET COUNT 235 10^3/uL (150-450); RED BLOOD COUNT 2.98 10^6/uL (3.72-5.28); RED CELL DISTRIBUTION WIDTH 18.8 % (11.5-14.0); SEGMENTED NEUTROPHILS % (AUTO) 74.8 % (42-78); TOTAL CELLS COUNTED % (AUTO) 100 %; WHITE BLOOD COUNT 4.6 10^3/uL (4.0-10.5)
[2018-05-14 06:31] LABS: ALANINE AMINOTRANSFERASE 17 U/L (9-52); ALBUMIN 3.8 g/dL (3.5-5.0); ALKALINE PHOSPHATASE 161 U/L (38-126); ANION GAP 12 (5-19); ASPARTATE AMINO TRANSFERASE 25 U/L (14-36); BILIRUBIN,DIRECT 0.5 mg/dL (0.0-0.4); BILIRUBIN,TOTAL 0.6 mg/dL (0.2-1.3); BLOOD UREA NITROGEN 39 mg/dL (7-20); CALCIUM 8.6 mg/dL (8.4-10.2); CARBON DIOXIDE 28 mmol/L (22-30); CHLORIDE 97 mmol/L (98-107); GLUCOSE 89 mg/dL (75-110); POTASSIUM 4.2 mmol/L (3.6-5.0); TOTAL PROTEIN 7.7 g/dL (6.3-8.2)
[2018-05-14] MEDS: ESCITALOPRAM OXALATE 10 MG TABLET PO SCH (10:32)
[2018-05-14] MEDS: MIDODRINE HCL 5 MG TABLET PO SCH ×3 (10:32→17:24)
[2018-05-14] MEDS: FERROUS SULFATE 325 MG TABLET PO SCH ×3 (10:32→17:24)
[2018-05-14] MEDS: HEPARIN SOD (PORCINE) 5,000 UNIT/ML 1 ML SYRINGE SUBCUT SCH ×2 (10:33→21:26)
[2018-05-14] MEDS: FOLIC ACID 1 MG TABLET PO SCH (10:33)
[2018-05-14 10:44] LABS: INTERNATIONAL RATION (INR) 2.36
--- NOTE | 2018-05-14 11:04 | PDOC PROGRESS REPORT ---
Subjective Progress Note for:: 05/14/18 Subjective:: 77-year-old female past medical history of hypotension my daughter and dependent , ESRD on HD TTS, A. fib, CHF, CAD, hyperlipidemia, aortic and mitral valve replacement, COPD, pleural effusion history of previous thoracentesis. She also has a history of noncompliance due to poor social support and memory problem. Patient presented to ED on 05/11/2018 complaining of shortness of breath after missing her hemodialysis on Friday. She will also have an issue of excessive volume overload without the ability to remove enough fluid due to underlying low blood pressure. In ED she was found to have volume overload with hyperkalemia without any EKG changes, hypotension and tachycardia. Nephrology was consulted and patient is a status post hemodialysis with 2 L fluid removal. 05/12/2018. No acute events overnight. On my encounter patient is laying in her bed with the head elevated not in any apparent distress. Patient is alert oriented and very pleasant and cooperative with physical and history. Patient denies any fever, chills, nausea, vomiting, diarrhea, shortness of breath, chest pain or any urinary symptoms. She states that she is living with her and her daughter who is administering her medications. I talked with her daughter Dary over the phone who is responsible for administering her medications at home. Based on my conversation with her she is knowledgeable about her mother's medications. She stated that she takes her medication but sometimes she is not compliant with her medications. She stated that she missed her last dose of Coumadin. She used to have home health who would visit her every other week to check her INR however recently the care has been transferred to [facility] where she receives her dialysis. Dr. Branch is her PCP. As per daughter last was 2.6. 05/13/2018. No acute events overnight. Upon my encounter patient is laying in bed does not seem to be in any acute distress. He is alert and oriented and she is very pleasant and cooperative with physical examination. She is scheduled for hemodialysis today. She denies any fever, chills, nausea, vomiting, diarrhea, constipation, chest pain or any urinary symptoms. 05/14/2018. No acute events overnight. Status post hemodialysis on 2017. Patient states she could not get a good night sleep but does not specify why. She denies any pain. She is p.o. tolerant and tolerating her medications. She is only complaining of dyspnea on exertion otherwise she is denying any chest pain, fever, chills, nausea, vomiting, diarrhea, constipation or any urinary symptoms. Reason For Visit: VOLUME OVERLOAD Physical Exam Vital Signs: Temp Pulse Resp BP Pulse Ox 98.7 F 62 28 H 94/58 L 97 05/14/18 07:35 05/14/18 07:35 05/14/18 07:35 05/14/18 07:35 05/14/18 07:56 Intake & Output 05/13/18 05/14/18 05/15/18 06:59 06:59 06:59 Intake Total 370 1173.5 Output Total 0 2102 Balance 370 -928.5 Weight 67.7 kg 68.5 kg General appearance: PRESENT: no acute distress, well-developed, well-nourished Head exam: PRESENT: atraumatic, normocephalic Eye exam: PRESENT: conjunctiva pink, EOMI, PERRLA. ABSENT: scleral icterus Ear exam: PRESENT: normal external ear exam Mouth exam: PRESENT: moist, tongue midline Neck exam: ABSENT: carotid bruit, JVD, lymphadenopathy, thyromegaly Respiratory exam: PRESENT: crackles - Diffuse crackles bilaterally.. ABSENT: rales, rhonchi, wheezes Cardiovascular exam: PRESENT: RRR. ABSENT: diastolic murmur, rubs, systolic murmur Pulses: PRESENT: normal dorsalis pedis pul Vascular exam: PRESENT: normal capillary refill GI/Abdominal exam: PRESENT: normal bowel sounds, soft. ABSENT: distended, guarding, mass, organolmegaly, rebound, tenderness Rectal exam: PRESENT: deferred Extremities exam: PRESENT: full ROM. ABSENT: calf tenderness, clubbing, pedal edema Neurological exam: PRESENT: alert, awake, oriented to person, oriented to place , oriented to time, oriented to situation, CN II-XII grossly intact. ABSENT: motor sensory deficit Psychiatric exam: PRESENT: appropriate affect, normal mood. ABSENT: homicidal ideation, suicidal ideation Skin exam: PRESENT: dry, intact, warm. ABSENT: cyanosis, rash Results Laboratory Results: 05/14/18 05:33 05/14/18 05:33 05/13/18 05/14/18 05/14/18 04:47 05:33 05:33 WBC 4.6 RBC 2.98 L Hgb 10.0 L Hct 29.9 L MCV 100 H MCH 33.4 MCHC 33.4 RDW 18.8 H Plt Count 235 Seg Neutrophils % 74.8 Lymphocytes % 5.5 L Monocytes % 14.7 H Eosinophils % 3.1 Basophils % 1.9 Absolute Neutrophils 3.4 Absolute Lymphocytes 0.3 L Absolute Monocytes 0.7 Absolute Eosinophils 0.1 Absolute Basophils 0.1 Sodium 137.0 Potassium 4.2 Chloride 97 L Carbon Dioxide 28 Anion Gap 12 BUN 39 H Creatinine 5.71 H Est GFR ( Amer) 9 L Est GFR (Non-Af Amer) 7 L Glucose 89 Calcium 8.6 Phosphorus 6.6 H Magnesium 2.0 Total Bilirubin 0.6 AST 25 ALT 17 Alkaline Phosphatase 161 H Total Protein 7.7 Albumin 3.8 Impressions: Chest X-Ray 05/11/18 02:09 IMPRESSION: Moderate mixed interstitial and airpace opacities. Interval worsening. Differential diagnosis includes CHF/pulmonary edema, multifocal pneumonia, and chronic interstitial lung disease. Assessment & Plan - Diagnosis (1) End stage renal failure on dialysis Is this a current diagnosis for this admission?: No Plan: Status post hemodialysis on 05/13/2018. Nephrology on board. Volume restriction. Renal diet. (2) Hypotension Qualifiers: Hypotension type: unspecified hypotension type Qualified Code(s): I95.9 - Hypotension, unspecified Is this a current diagnosis for this admission?: No Plan: Normotensive. Restarted midodrine. Patient has a history of noncompliance as per my conversation with her daughter. (3) Volume overload Is this a current diagnosis for this admission?: Yes Plan: Due to underlying end-stage renal disease, CHF. Status post 2 L fluid removal by nephrology yesterday. Hemodialysis today (4) Anemia in chronic kidney disease Qualifiers: Chronic kidney disease stage: on chronic dialysis Qualified Code(s): N18.6 - End stage renal disease; D63.1 - Anemia in chronic kidney disease; D63.1 - Anemia in chronic kidney disease; Z99.2 - Dependence on renal dialysis; Z99.2 - Dependence on renal dialysis; Z99.2 - Dependence on renal dialysis; Z99.2 - Dependence on renal dialysis Is this a current diagnosis for this admission?: No Plan: Epogen given during dialysis on 05/11/2018. H&H stable. (5) Atrial fibrillation Qualifiers: Atrial fibrillation type: chronic Qualified Code(s): I48.2 - Chronic atrial fibrillation Is this a current diagnosis for this admission?: Yes Plan: [id number] 4. On low-dose metoprolol and warfarin. Not rate controlled. Currently on Cardizem drip by cardiology. Patient is noncompliant with her medications as per her daughter. INR is 1.59 on admission. As per cardiology note on 11/03/2017 patient was referred to [facility] for possible placement of pacemaker and ablation however she was declined. (6) COPD (chronic obstructive pulmonary disease) Qualifiers: COPD type: unspecified COPD Qualified Code(s): J44.9 - Chronic obstructive pulmonary disease, unspecified Is this a current diagnosis for this admission?: No Plan: Patient presented with shortness of breath and she is status post 2 L of fluid removed during hemodialysis. Shortness of breath has improved. Unlikely this was due to COPD exacerbation. Continue nebs as needed. (7) Congestive heart failure Is this a current diagnosis for this admission?: No Plan: Combined systolic and diastolic dysfunction. Echo on 05/12/2018 ejection fraction is 45-50%. Echo on 09/2017 normal ejection fraction with moderate diastolic failure. Status post hemodialysis on 05/11/2018. 2 L removed. Monitor vital status and volume status. Continue cardiac diet and fluid restrictions. (8) Hypotension Is this a current diagnosis for this admission?: Yes Plan: Normotensive. Continue Midodrine (9) Mechanical heart valve present Is this a current diagnosis for this admission?: No Plan: On Coumadin. Echo from 05/13/2018 shows restenosis of the prosthetic aortic valve with peak gradient of 40 mmHg with no regurgitation and mechanical mitral valve no restenosis with trace mitral regurgitation. Cardiology following. Recommendation for INR was between 2.5-3.5. Restarted with warfarin. INR tomorrow. Notes. As per cardiology consult on 11/13/2017 anticoagulation was deferred to track rider as patient is end-stage renal disease and on hemodialysis. (10) Pulmonary hypertension, moderate to severe Is this a current diagnosis for this admission?: No Plan: 2D echo from 72,018 suggestive of severe pulmonary hypertension. RVSP is 79- 78 mmHg. With mean RA of 15-20. Will consult pulmonology for further recommendation.
--- NOTE | 2018-05-14 12:31 | RADIOLOGY REPORT (SQ) ---
EXAM DESCRIPTION: CHEST SINGLE VIEW COMPLETED DATE/TIME: 05/14/2018 11:34 am REASON FOR STUDY: CHF/ pulmonary edema COMPARISON: Chest films 05/11/2018, 10/26/2017 EXAM PARAMETERS: NUMBER OF VIEWS: One view. TECHNIQUE: Single frontal radiographic view of the chest acquired. RADIATION DOSE: NA LIMITATIONS: None. FINDINGS: LUNGS AND PLEURA: Opacification right lower hemithorax due to basilar consolidation and sm all right pleural effusion. This is more prominent than on 05/11/2018. Patchy perihilar pulmonary edema has partially cleared compared to 05/11/2018. No pneumothorax MEDIASTINUM AND HILAR STRUCTURES: No masses. Contour normal. HEART AND VASCULAR STRUCTURES: Stable marked cardiomegaly. Old sternotomy for CABG BONES: No acute findings. HARDWARE: Right jugular central venous dialysis catheter tip in the right atrium OTHER: No other significant finding. IMPRESSION: Decrease in perihilar alveolar edema compared to 05/11/2018. Opacification right lower hemithorax from small right pleural effusion and basilar airspace disease a telectasis versus pneumonia. This is increased compared to 05/11/2018. TECHNICAL DOCUMENTATION: JOB ID: [id number] [employer]- All Rights Reserved Reading location - IP/workstation name: [email or web address]
--- NOTE | 2018-05-14 13:23 | PDOC PROGRESS REPORT ---
Subjective Progress Note for:: 05/14/18 Subjective:: Patient was seen today sitting up in her bed. She stated that her shortness of breath had improved, but still was short of breath with exertion. She denied chest pain, heart palpitations, n/v/d/c. Reason For Visit: VOLUME OVERLOAD Physical Exam Vital Signs: Temp Pulse Resp BP Pulse Ox 99.0 F 71 26 H 100/68 96 05/14/18 12:10 05/14/18 12:45 05/14/18 12:10 05/14/18 12:45 05/14/18 12:10 Intake & Output 05/13/18 05/14/18 05/15/18 06:59 06:59 06:59 Intake Total 370 1173.5 474 Output Total 0 2102 Balance 370 -928.5 474 Weight 67.7 kg 68.5 kg General appearance: PRESENT: no acute distress, well-developed, well-nourished Mouth exam: PRESENT: moist. ABSENT: neck supple Neck exam: PRESENT: full ROM. ABSENT: JVD Respiratory exam: PRESENT: crackles, decreased breath sounds. ABSENT: clear to auscultation kee, rales, rhonchi, wheezes Cardiovascular exam: PRESENT: irregular rhythm, +S1, +S2 GI/Abdominal exam: PRESENT: soft. ABSENT: tenderness Extremities exam: PRESENT: tenderness. ABSENT: pedal edema, +1 edema, +2 edema Musculoskeletal exam: PRESENT: normal inspection, tenderness Neurological exam: PRESENT: alert, awake, oriented to person, oriented to place , oriented to situation Skin exam: PRESENT: dry, intact, warm. ABSENT: cyanosis Results Laboratory Results: 05/14/18 05:33 05/14/18 05:33 05/13/18 05/14/18 05/14/18 04:47 05:33 05:33 WBC 4.6 RBC 2.98 L Hgb 10.0 L Hct 29.9 L MCV 100 H MCH 33.4 MCHC 33.4 RDW 18.8 H Plt Count 235 Seg Neutrophils % 74.8 Lymphocytes % 5.5 L Monocytes % 14.7 H Eosinophils % 3.1 Basophils % 1.9 Absolute Neutrophils 3.4 Absolute Lymphocytes 0.3 L Absolute Monocytes 0.7 Absolute Eosinophils 0.1 Absolute Basophils 0.1 Sodium 137.0 Potassium 4.2 Chloride 97 L Carbon Dioxide 28 Anion Gap 12 BUN 39 H Creatinine 5.71 H Est GFR ( Amer) 9 L Est GFR (Non-Af Amer) 7 L Glucose 89 Calcium 8.6 Phosphorus 6.6 H Magnesium 2.0 Total Bilirubin 0.6 AST 25 ALT 17 Alkaline Phosphatase 161 H Total Protein 7.7 Albumin 3.8 Impressions: Chest X-Ray 05/14/18 09:37 IMPRESSION: Decrease in perihilar alveolar edema compared to 05/11/2018. Opacification right lower hemithorax from small right pleural effusion and basilar airspace disease atelectasis versus pneumonia. This is increased compared to 05/11/2018. Assessment & Plan - Diagnosis (1) Congestive heart failure (CHF) Qualifiers: Heart failure type: other Qualified Code(s): I50.9 - Heart failure, unspecified Plan: improving, chest x-ray looks to have improved. Consolidation present on the x- ray. She does have prior history of pleural effusions. With x-ray findings there is concern for reoccurrence of the pleural effusion. (2) End stage renal failure on dialysis Is this a current diagnosis for this admission?: No Plan: If patient remains in the hospital then I will look to set her up on dialysis tomorrow. No current indication for it today. Patient is currently at her baseline (3) Hyperkalemia Is this a current diagnosis for this admission?: Yes Plan: stable (4) Hypotension Qualifiers: Hypotension type: unspecified hypotension type Qualified Code(s): I95.9 - Hypotension, unspecified Is this a current diagnosis for this admission?: No Plan: on midodrine 10mg TID (5) A-fib Plan: currently on a cardezim drip, still remains elevated in the 110s and 120s. (6) Anemia in chronic kidney disease Qualifiers: Chronic kidney disease stage: on chronic dialysis Qualified Code(s): N18.6 - End stage renal disease; D63.1 - Anemia in chronic kidney disease; D63.1 - Anemia in chronic kidney disease; Z99.2 - Dependence on renal dialysis; Z99.2 - Dependence on renal dialysis; Z99.2 - Dependence on renal dialysis; Z99.2 - Dependence on renal dialysis Is this a current diagnosis for this admission?: No Plan: on epogen with each dialysis treatment (7) COPD (chronic obstructive pulmonary disease) Qualifiers: COPD type: unspecified COPD Qualified Code(s): J44.9 - Chronic obstructive pulmonary disease, unspecified Is this a current diagnosis for this admission?: No
[2018-05-14] MEDS: ACETAMINOPHEN 325 MG TABLET PO PRN ×2 (16:18→21:26)
[2018-05-14] MEDS: LORAZEPAM 1 MG TABLET PO PRN (20:20)
--- NOTE | 2018-05-14 20:24 | Progress Note ---
Provider Note Provider Note: Cardiology PROGRESS NOTE by Dr. Elizabeth Unger on 05/14/2018. SUBJECTIVE: The patient denies any shortness of breath, PND orthopnea or chest pain or discomfort. She still remains in atrial fibrillation with rapid ventricular response in the 120s. Her blood pressure is slightly better on Midrin. There no TIA CVA symptoms. There is no signs or symptoms of malfunction of the prosthetic aortic/mitral valve, in spite of the patient's INR being subtherapeutic. We will give extra dose of dose of digoxin once the disc level is available. Also will give the patient extra dose of Coumadin tonight. The patient is having hemodialysis later today. Also will start the patient on Cardizem drip/infusion, to see if this will control the patient's heart rate. PHYSICAL EXAMINATION: The patient is a frail build. Appears to be chronically ill. But in spite of this and is in no acute distress. She is not aware of any palpitations or feeling of rapid beating of her heart. Selected Entries 05/14/18 15:50 Temperature 98.7 F Temperature Oral Source Pulse Rate 125 H Respiratory 17 Rate Blood Pressure 110/56 L Blood Pressure 74 Mean BP Location Right Arm BP Position Sitting O2 Sat by Pulse 95 Oximetry Oxygen Flow 3.00 Rate Oxygen Delivery Nasal Cannula Method HEAD: Is atraumatic normocephalic. EYES: Pupils are equal round regular reactive to light and accommodation. Extraocular movements are normal. There is no clinical pallor. ENT: Is negative. Neck is supple there is no JVD. There is transmitted aortic stenosis murmur over both carotids. Has mild carotid delay. There is no lymphadenopathy. There is no JVD. There is no carotid bruits. There is no lymphadenopathy trachea central LUNGS are clear to auscultation percussion with slightly diminished air entry and prolonged expiration. HEART: S1-S2 is heard. S1 is of variable intensity. Prosthetic crisp clicks of the mitral and aortic valve heard well. There is murmur of aortic stenosis present there is no aortic regurgitation murmur. There is no mitral regurgitation murmur. There is no rub there is no S3 or S4 gallops. ABDOMEN: Is soft nontender there is no hepatosplenomegaly. Bowel sounds well heard. EXTREMITIES: Femorals are diminished. There is no femoral bruits. Leg pulses are diminished. There is no pedal edema. There is no DVT S cellulitis. There is no sinus or clubbing. There is no calf tenderness. ADOBE LAYER: Patient is conscious awake at present seems to be oriented x3 with no focal deficit. PSYCHIATRIC: The patient judgment insight and insight at this time appear to be intact. The patient is not agitated. 05/14/18 05/14/18 05/14/18 05:33 05:33 05:33 WBC 4.6 RBC 2.98 L Hgb 10.0 L Hct 29.9 L MCV 100 H RDW 18.8 H Plt Count 235 Sodium 137.0 Potassium 4.2 Chloride 97 L Carbon Dioxide 28 Anion Gap 12 BUN 39 H Creatinine 5.71 H Est GFR ( Amer) 9 L Glucose 89 Calcium 8.6 Phosphorus 4.7 H Magnesium 2.0 Total Bilirubin 0.6 Direct Bilirubin 0.5 H Neonat Total Bilirubin Not Reportable Neonat Direct Bilirubin Not Reportable Neonat Indirect Bili Not Reportable AST 25 ALT 17 Alkaline Phosphatase 161 H Total Protein 7.7 Albumin 3.8 1. Atrial fibrillation with fast ventricular response. Note since the heart rate came down into the low 100s the patient's Cardizem drip was decreased to 5 mg/h, subsequently her heart rate went up again and hence will increase the Cardizem drip to 15 mg/h. As mentioned earlier, if there is difficulty controlling the patient's ventricular response to the atrial fibrillation, one option might be to consider a VVI pacemaker placement to pace the ventricle, and preferably a biventricular AICD, and ablation of the AV node. Note the patient's INR is therapeutic now. Will discuss with the patient about starting the patient on amiodarone. 2. Prosthetic [place] aortic valve replacement and mitral valve replacement. There is moderate restenosis of the aortic valve. Also the patient is INR is subtherapeutic. We will give an extra dose of Coumadin along with her usual dose of Coumadin tonight. 3. Severe tricuspid regurgitation: We will see if Cardizem will help this. We will get records from [facility] a month since the patient a few months ago was sent there for possible tricuspid valve annuloplasty. 4. Severe pulmonary hypertension. 5. Past history of hypertension. At present blood pressure low requiring Midrin to be able to give medicines that can cause the blood pressure to go down. 6. End-stage renal disease: Continue hemodialysis. 7. EARLY DEMENTIA: At present patient seems to be doing fairly well. 8. COPD: No acute exacerbation. 9. Abnormal chest x-ray: Shows improvement in the heart failure/pulmonary edema. There is a right basal small pleural effusion and possibly atelectasis versus pneumonia. Would recommend antibiotics due to the fact that the patient has [address] in situ[address] Her medications have been reviewed, medications added. Discussed with the attending physician and coordinated care with them. Medical decision making is of high complexity. 40 minutes spent on this patient more than 50% of time spent in direct patient care. We will follow with you.
[2018-05-14] MEDS: ATORVASTATIN CALCIUM 20 MG TABLET PO SCH (21:25)
[2018-05-14] MEDS ORDERED: WARFARIN SODIUM 7.5 MG TABLET PO SCH (22:00)
[2018-05-14] MEDS ORDERED: WARFARIN SODIUM 1 MG TABLET PO SCH (22:00)
[2018-05-15] MEDS: DILTIAZEM HCL/D5W 125 MG/125 ML RTUINJ IV PRN ×2 (01:34→10:23)
[2018-05-15 04:56] LABS: HEMATOCRIT 29.9 % (36.0-47.0); HEMOGLOBIN 9.9 g/dL (12.0-15.5); MEAN CORPUSCULAR HGB CONC 33.1 g/dL (32.0-36.0); MEAN CORPUSCULAR VOLUME 100 fl (80-97); PLATELET COUNT 256 10^3/uL (150-450); RED CELL DISTRIBUTION WIDTH 18.9 % (11.5-14.0)
[2018-05-15] MEDS ORDERED: EPOETIN ALFA INJ 20000 UNIT/1 ML VIAL (RENAL) IV PRN (05:00)
[2018-05-15 05:18] LABS: ALANINE AMINOTRANSFERASE 13 U/L (9-52); ALBUMIN 3.8 g/dL (3.5-5.0); ALKALINE PHOSPHATASE 154 U/L (38-126); ANION GAP 15 (5-19); ASPARTATE AMINO TRANSFERASE 23 U/L (14-36); BILIRUBIN,DIRECT 0.6 mg/dL (0.0-0.4); BILIRUBIN,TOTAL 0.7 mg/dL (0.2-1.3); BLOOD UREA NITROGEN 50 mg/dL (7-20); CALCIUM 8.6 mg/dL (8.4-10.2); CARBON DIOXIDE 26 mmol/L (22-30); CHLORIDE 95 mmol/L (98-107); GLUCOSE 120 mg/dL (75-110); POTASSIUM 4.6 mmol/L (3.6-5.0); SODIUM 136.2 mmol/L (137-145); TOTAL PROTEIN 7.8 g/dL (6.3-8.2)
[2018-05-15 05:20] LABS: ABSOLUTE LYMPHOCYTES# (MANUAL) 0.8 10^3/uL (0.5-4.7); ABSOLUTE MONOCYTES # (MANUAL) 0.4 10^3/uL (0.1-1.4); ABSOLUTE NEUTROPHILS# (MANUAL) 3.5 10^3/uL (1.7-8.2); ANISOCYTOSIS 1+; EOSINOPHILS % (MANUAL) 7 % (0-6); HYPOCHROMASIA 1+; LYMPHOCYTES % (MANUAL) 16 % (13-45); MONOCYTES % (MANUAL) 8 % (3-13); SEGMENTED NEUTROPHILS % (MAN) 69 % (42-78)
[2018-05-15 05:21] LABS: BURR CELLS SLIGHT; OVALOCYTES SLIGHT; PLATELET COMMENT ADEQUATE; POIKILOCYTOSIS 1+; SCHISTOCYTES SLIGHT; TARGET CELLS 1+
[2018-05-15 05:32] LABS: TOTAL CELLS COUNTED 100
[2018-05-15] MEDS: LANSOPRAZOLE 30 MG TAB.RAP.DR PO SCH ×2 (05:51→18:13)
[2018-05-15] MEDS ORDERED: EPOETIN ALFA 10,000 UNIT in SYRINGE, DISPOSABLE, 1 EACH IV PRN (07:23)
--- NOTE | 2018-05-15 09:59 | PDOC PROGRESS REPORT ---
Subjective Progress Note for:: 05/15/18 Subjective:: Patient seen on dialysis. He is undergoing dialysis without any issues currently. Patient is awake alert and oriented. Patient denies any history of chest pains, SOB, n/v/d/c. Labs and medications were reviewed with the patient. Reason For Visit: VOLUME OVERLOAD Physical Exam Vital Signs: Temp Pulse Resp BP Pulse Ox 97.8 F 124 H 22 H 112/71 97 05/15/18 03:51 05/15/18 06:00 05/15/18 03:51 05/15/18 06:00 05/15/18 09:16 Intake & Output 05/14/18 05/15/18 05/16/18 06:59 06:59 06:59 Intake Total 1173.5 798 Output Total 2102 Balance -928.5 798 Weight 68.5 kg 69.3 kg General appearance: PRESENT: no acute distress, well-developed, well-nourished Mouth exam: PRESENT: moist, neck supple Neck exam: PRESENT: full ROM. ABSENT: JVD Respiratory exam: PRESENT: crackles - -bases. ABSENT: clear to auscultation kee , rales, rhonchi, wheezes Cardiovascular exam: PRESENT: irregular rhythm, +S1, +S2 GI/Abdominal exam: PRESENT: soft. ABSENT: tenderness Extremities exam: ABSENT: tenderness, +1 edema, +2 edema Musculoskeletal exam: PRESENT: normal inspection. ABSENT: tenderness Neurological exam: PRESENT: alert, awake, oriented to person, oriented to place , oriented to time, oriented to situation Skin exam: PRESENT: dry, intact, warm. ABSENT: cyanosis Results Laboratory Results: 05/15/18 04:35 05/15/18 04:35 05/14/18 05/15/18 05/15/18 05:33 04:35 04:35 WBC 5.0 RBC 3.00 L Hgb 9.9 L Hct 29.9 L MCV 100 H MCH 33.0 MCHC 33.1 RDW 18.9 H Plt Count 256 Seg Neutrophils % Not Reportable Lymphocytes % Not Reportable Monocytes % Not Reportable Eosinophils % Not Reportable Basophils % Not Reportable Absolute Neutrophils Not Reportable Absolute Lymphocytes Not Reportable Absolute Monocytes Not Reportable Absolute Eosinophils Not Reportable Absolute Basophils Not Reportable Sodium 136.2 L Potassium 4.6 Chloride 95 L Carbon Dioxide 26 Anion Gap 15 BUN 50 H Creatinine 7.46 H Est GFR ( Amer) 6 L Est GFR (Non-Af Amer) 5 L Glucose 120 H Calcium 8.6 Phosphorus 4.7 H Total Bilirubin 0.7 AST 23 ALT 13 Alkaline Phosphatase 154 H Total Protein 7.8 Albumin 3.8 Impressions: Chest X-Ray 05/14/18 09:37 IMPRESSION: Decrease in perihilar alveolar edema compared to 05/11/2018. Opacification right lower hemithorax from small right pleural effusion and basilar airspace disease atelectasis versus pneumonia. This is increased compared to 05/11/2018. Assessment & Plan - Diagnosis (1) Congestive heart failure (CHF) Qualifiers: Heart failure type: other Qualified Code(s): I50.9 - Heart failure, unspecified Plan: removing 2 to 3 more liters as tolerated (2) End stage renal failure on dialysis Is this a current diagnosis for this admission?: No Plan: Patient seen on dialysis. He is undergoing dialysis without any issues currently. Patient is awake alert and oriented. Patient denies any history of chest pains or abdominal pains. Labs and medications were reviewed with the patient. Orders were discussed with Anna, the dialysis nurse. dialyzes Friday, and Friday. (3) Hyperkalemia Is this a current diagnosis for this admission?: Yes Plan: stable (4) Hypotension Qualifiers: Hypotension type: unspecified hypotension type Qualified Code(s): I95.9 - Hypotension, unspecified Is this a current diagnosis for this admission?: No Plan: on midodrine 10mg TID (5) A-fib Plan: currently on a cardezim drip, still remains elevated in the 110s and 120s. (6) Anemia in chronic kidney disease Qualifiers: Chronic kidney disease stage: on chronic dialysis Qualified Code(s): N18.6 - End stage renal disease; D63.1 - Anemia in chronic kidney disease; D63.1 - Anemia in chronic kidney disease; Z99.2 - Dependence on renal dialysis; Z99.2 - Dependence on renal dialysis; Z99.2 - Dependence on renal dialysis; Z99.2 - Dependence on renal dialysis Is this a current diagnosis for this admission?: No Plan: on epogen with each dialysis treatment (7) COPD (chronic obstructive pulmonary disease) Qualifiers: COPD type: unspecified COPD Qualified Code(s): J44.9 - Chronic obstructive pulmonary disease, unspecified Is this a current diagnosis for this admission?: No Plan: stable
[2018-05-15 11:01] LABS: INTERNATIONAL RATION (INR) 3.03; PROTHROMBIN TIME 32.8 SEC (11.4-15.4)
[2018-05-15] MEDS: FOLIC ACID 1 MG TABLET PO SCH (11:48)
[2018-05-15] MEDS: FERROUS SULFATE 325 MG TABLET PO SCH ×3 (11:48→18:13)
[2018-05-15] MEDS: ESCITALOPRAM OXALATE 10 MG TABLET PO SCH (11:48)
[2018-05-15] MEDS: MIDODRINE HCL 5 MG TABLET PO SCH ×3 (11:48→18:13)
[2018-05-15] MEDS ORDERED: AMIODARONE HCL 150 MG in DEXTROSE 5%-WATER 100 ML IV ONE (12:15)
[2018-05-15] MEDS: DEXTROSE 5%-WATER 500 ML with AMIODARONE HCL 900 MG IV PRN ×2 (13:25)
[2018-05-15] MEDS ORDERED: ASPIRIN 325 MG TABLET PO ONE (13:30)
[2018-05-15 14:25] LABS: CREATINE KINASE MB 1.48 ng/mL (<4.55); TROPONIN I 0.04 ng/mL
[2018-05-15] MEDS: MORPHINE SULFATE 10 MG/ML INJ IV PRN (15:17)
--- NOTE | 2018-05-15 17:02 | PDOC PROGRESS REPORT ---
Subjective Progress Note for:: 05/15/18 Subjective:: 77-year-old female past medical history of hypotension my daughter and dependent , ESRD on HD TTS, A. fib, CHF, CAD, hyperlipidemia, aortic and mitral valve replacement, COPD, pleural effusion history of previous thoracentesis. She also has a history of noncompliance due to poor social support and memory problem. Patient presented to ED on 05/11/2018 complaining of shortness of breath after missing her hemodialysis on Friday. She will also have an issue of excessive volume overload without the ability to remove enough fluid due to underlying low blood pressure. In ED she was found to have volume overload with hyperkalemia without any EKG changes, hypotension and tachycardia. Nephrology was consulted and patient is a status post hemodialysis with 2 L fluid removal. 05/12/2018. No acute events overnight. On my encounter patient is laying in her bed with the head elevated not in any apparent distress. Patient is alert oriented and very pleasant and cooperative with physical and history. Patient denies any fever, chills, nausea, vomiting, diarrhea, shortness of breath, chest pain or any urinary symptoms. She states that she is living with her and her daughter who is administering her medications. I talked with her daughter Dary over the phone who is responsible for administering her medications at home. Based on my conversation with her she is knowledgeable about her mother's medications. She stated that she takes her medication but sometimes she is not compliant with her medications. She stated that she missed her last dose of Coumadin. She used to have home health who would visit her every other week to check her INR however recently the care has been transferred to [facility] where she receives her dialysis. Dr. Branch is her PCP. As per daughter last was 2.6. 05/13/2018. No acute events overnight. Upon my encounter patient is laying in bed does not seem to be in any acute distress. He is alert and oriented and she is very pleasant and cooperative with physical examination. She is scheduled for hemodialysis today. She denies any fever, chills, nausea, vomiting, diarrhea, constipation, chest pain or any urinary symptoms. 05/14/2018. No acute events overnight. Status post hemodialysis on 2017. Patient states she could not get a good night sleep but does not specify why. She denies any pain. She is p.o. tolerant and tolerating her medications. She is only complaining of dyspnea on exertion otherwise she is denying any chest pain, fever, chills, nausea, vomiting, diarrhea, constipation or any urinary symptoms. 05/15/2018. Events overnight. Patient is status post hemodialysis. After patient came back from hemodialysis was complaining of pressure-like chest pain. Stat EKG was done which did not show any acute changes compared to previous EKG. First set of troponin was 0.04. Patient was given some morphine and aspirin which subsided her chest pain. I rounded on patient several times during the day my last encounter she stated that her chest pain has resolved. Patient is p.o. tolerant and ambulating. She denies any fever, chills, shortness of breath, nausea, vomiting, diarrhea, constipation or any urinary symptoms. Reason For Visit: VOLUME OVERLOAD Physical Exam Vital Signs: Temp Pulse Resp BP Pulse Ox 98.6 F 121 H 17 116/59 L 95 05/15/18 15:51 05/15/18 15:51 05/15/18 15:51 05/15/18 15:51 05/15/18 15:51 Intake & Output 05/14/18 05/15/18 05/16/18 06:59 06:59 06:59 Intake Total 1173.5 798 125.5 Output Total 2102 1800 Balance -928.5 798 -1674.5 Weight 68.5 kg 69.3 kg General appearance: PRESENT: no acute distress, well-developed, well-nourished Head exam: PRESENT: atraumatic, normocephalic Eye exam: PRESENT: conjunctiva pink, EOMI, PERRLA. ABSENT: scleral icterus Ear exam: PRESENT: normal external ear exam Mouth exam: PRESENT: moist, tongue midline Neck exam: ABSENT: carotid bruit, JVD, lymphadenopathy, thyromegaly Respiratory exam: PRESENT: clear to auscultation kee. ABSENT: rales, rhonchi, wheezes Cardiovascular exam: PRESENT: clicks, irregular rhythm, RRR, tachycardia. ABSENT: diastolic murmur, rubs Pulses: PRESENT: normal dorsalis pedis pul Vascular exam: PRESENT: normal capillary refill GI/Abdominal exam: ABSENT: distended, guarding, mass, organolmegaly, rebound, tenderness Rectal exam: PRESENT: deferred Extremities exam: ABSENT: calf tenderness, clubbing, pedal edema Neurological exam: PRESENT: alert, awake, oriented to person, oriented to place , oriented to time, oriented to situation, CN II-XII grossly intact. ABSENT: motor sensory deficit Psychiatric exam: PRESENT: appropriate affect, normal mood. ABSENT: homicidal ideation, suicidal ideation Skin exam: ABSENT: cyanosis, rash Results Laboratory Results: 05/15/18 04:35 05/15/18 04:35 05/14/18 05/15/18 05/15/18 05:33 04:35 04:35 WBC 5.0 RBC 3.00 L Hgb 9.9 L Hct 29.9 L MCV 100 H MCH 33.0 MCHC 33.1 RDW 18.9 H Plt Count 256 Seg Neutrophils % Not Reportable Lymphocytes % Not Reportable Monocytes % Not Reportable Eosinophils % Not Reportable Basophils % Not Reportable Absolute Neutrophils Not Reportable Absolute Lymphocytes Not Reportable Absolute Monocytes Not Reportable Absolute Eosinophils Not Reportable Absolute Basophils Not Reportable Sodium 136.2 L Potassium 4.6 Chloride 95 L Carbon Dioxide 26 Anion Gap 15 BUN 50 H Creatinine 7.46 H Est GFR ( Amer) 6 L Est GFR (Non-Af Amer) 5 L Glucose 120 H Calcium 8.6 Phosphorus 4.7 H Total Bilirubin 0.7 AST 23 ALT 13 Alkaline Phosphatase 154 H Total Protein 7.8 Albumin 3.8 05/15/18 05/15/18 13:42 13:42 Creatine Kinase 36 CK-MB (CK-2) 1.48 Troponin I 0.040 Impressions: Chest X-Ray 05/14/18 09:37 IMPRESSION: Decrease in perihilar alveolar edema compared to 05/11/2018. Opacification right lower hemithorax from small right pleural effusion and basilar airspace disease atelectasis versus pneumonia. This is increased compared to 05/11/2018. Assessment & Plan - Diagnosis (1) Chest pain Qualifiers: Chest pain type: unspecified Qualified Code(s): R07.9 - Chest pain, unspecified Is this a current diagnosis for this admission?: Yes Plan: Unlikely cardiac. Resolved. EKG negative for any acute changes. Initial troponin 0.04. Continue aspirin, trend troponins. (2) End stage renal failure on dialysis Is this a current diagnosis for this admission?: No Plan: On hemodialysis Friday and Friday. That is post hemodialysis today. Monitor volume status, fluid restrictions, renal diet. Nephrology following. (3) Hypotension Qualifiers: Hypotension type: unspecified hypotension type Qualified Code(s): I95.9 - Hypotension, unspecified Is this a current diagnosis for this admission?: No Plan: Resolved. Continue midodrine. Patient has a history of noncompliance as per my conversation with her daughter. (4) Volume overload Is this a current diagnosis for this admission?: Yes Plan: Due to underlying end-stage renal disease, CHF. On hemodialysis TTS. Status post hemodialysis 05/15/2018. (5) Anemia in chronic kidney disease Qualifiers: Chronic kidney disease stage: on chronic dialysis Qualified Code(s): N18.6 - End stage renal disease; D63.1 - Anemia in chronic kidney disease; D63.1 - Anemia in chronic kidney disease; Z99.2 - Dependence on renal dialysis; Z99.2 - Dependence on renal dialysis; Z99.2 - Dependence on renal dialysis; Z99.2 - Dependence on renal dialysis Is this a current diagnosis for this admission?: No Plan: H&H stable. Epogen on dialysis days. Continue ferrous sulfate. (6) Atrial fibrillation Qualifiers: Atrial fibrillation type: chronic Qualified Code(s): I48.2 - Chronic atrial fibrillation Is this a current diagnosis for this admission?: Yes Plan: [id number] 4. Cardizem drip. Started on amiodarone 05/15/2018. Not rate controlled. INR therapeutic. Continue warfarin. INR tomorrow in a.m. Patient is noncompliant with her medications as per her daughter. INR is 1.59 on admission. As per cardiology note on 11/03/2017 patient was referred to [facility] for possible placement of pacemaker and ablation however she was declined. (7) COPD (chronic obstructive pulmonary disease) Qualifiers: COPD type: unspecified COPD Qualified Code(s): J44.9 - Chronic obstructive pulmonary disease, unspecified Is this a current diagnosis for this admission?: No Plan: Stable. Unlikely unlikely she is on COPD patient. Shortness of breath have improved may have been due to volume overload due to underlying end-stage renal disease. Continue nebs as needed. (8) Congestive heart failure Is this a current diagnosis for this admission?: No Plan: Combined systolic and diastolic dysfunction. Echo on 05/12/2018 ejection fraction is 45-50%. Echo on 09/2017 normal ejection fraction with moderate diastolic failure. Status post hemodialysis on 05/11/2018. 2 L removed. Monitor vital status and volume status. Continue cardiac diet and fluid restrictions. (9) Hypotension Is this a current diagnosis for this admission?: Yes Plan: Normotensive. Continue Midodrine (10) Mechanical heart valve present Is this a current diagnosis for this admission?: No Plan: On Coumadin with goal INR of 2.5-3.5. Echo from 05/13/2018 shows restenosis of the prosthetic aortic valve with peak gradient of 40 mmHg with no regurgitation and mechanical mitral valve no restenosis with trace mitral regurgitation. Cardiology following. Recommendation for INR was between 2.5-3.5. INR tomorrow. Notes. As per cardiology consult on 11/13/2017 anticoagulation was deferred to engraver signature as patient is end-stage renal disease and on hemodialysis. (11) Pulmonary hypertension, moderate to severe Is this a current diagnosis for this admission?: No Plan: 2D echo from 72,018 suggestive of severe pulmonary hypertension. RVSP is 79- 78 mmHg. With mean RA of 15-20. Pending pulmonary recommendation.
[2018-05-15] MEDS ORDERED: FUROSEMIDE INJ/PF 40 MG/4 ML SDV ONE (18:01)
[2018-05-15] MEDS ORDERED: FUROSEMIDE INJ/PF 40 MG/4 ML SDV IV ONE (18:30)
[2018-05-15 19:19] LABS: PHOSPHORUS 4.1 mg/dL (2.5-4.5)
[2018-05-15 19:33] LABS: CREATINE KINASE MB 1.49 ng/mL (<4.55)
[2018-05-15 19:38] LABS: TROPONIN I 0.043 ng/mL
--- NOTE | 2018-05-15 19:43 | EKG REPORT ---
SEVERITY:- ABNORMAL ECG - SINUS TACHYCARDIA VENTRICULAR PREMATURE COMPLEX RIGHT BUNDLE BRANCH BLOCK LVH WITH SECONDARY REPOLARIZATION ABNORMALITY INFERIOR INFARCT, ACUTE I WAS TOLD DR MCCORMACK IS AWARE. : Confirmed by: Michael Fsoter MD 15-May-2018 19:42:53
--- NOTE | 2018-05-15 21:25 | Progress Note ---
Provider Note Provider Note: Cardiology PROGRESS NOTE by Dr. Elizabeth Unger on 05/15/2018. SUBJECTIVE: The patient denies any shortness of breath, PND ,or orthopnea . She has left front of the chest pain and discomfort. This is reproducible by pressing on the patient's chest wall. She still remains in atrial fibrillation with rapid ventricular response in the 120s. Her blood pressure is slightly better on Midodrine. There no TIA CVA symptoms. There is no signs or symptoms of malfunction of the prosthetic aortic/mitral valve. Her INR is now therapeutic. In spite of the patient being on Cardizem drip at 15 mg/h, and the doses of digoxin, the patient continues to be in atrial flutter with a ventricular response of 126 bpm. In view of this would recommend, and will start the patient on amiodarone bolus and infusion. PHYSICAL EXAMINATION: The patient is a frail build. Appears to be chronically ill. But in spite of this and is in no acute distress. She is not aware of any palpitations or feeling of rapid beating of her heart. Selected Entries 05/15/18 11:26 Temperature 97.7 F Temperature Oral Source Pulse Rate 127 H Respiratory 19 Rate Blood Pressure 109/57 L Blood Pressure 74 Mean BP Location Right Arm BP Position Sitting O2 Sat by Pulse 98 Oximetry Oxygen Flow 3.50 Rate Oxygen Delivery Nasal Cannula Method HEAD: Is atraumatic normocephalic. EYES: Pupils are equal round regular reactive to light and accommodation. Extraocular movements are normal. There is no clinical pallor. ENT: Is negative. Neck is supple there is no JVD. There is transmitted aortic stenosis murmur over both carotids. Has mild carotid delay. There is no lymphadenopathy. There is no JVD. There is no carotid bruits. There is no lymphadenopathy trachea central LUNGS: There is diminished air entry prolonged expiration, except for the right lower lobe where there is absent breath sounds and dullness on percussion. The rest of the lung she is hyperresonance. There is no rales of CHF. On palpation there is tenderness on palpating the front left front of the chest, reproducing the patient's symptoms of chest pain. HEART: S1-S2 is heard. S1 is of variable intensity. Prosthetic crisp clicks of the mitral and aortic valve heard well. There is murmur of aortic stenosis present there is no aortic regurgitation murmur. There is no mitral regurgitation murmur. There is no rub there is no S3 or S4 gallops. ABDOMEN: Is soft nontender there is no hepatosplenomegaly. Bowel sounds well heard. EXTREMITIES: Femorals are diminished. There is no femoral bruits. Leg pulses are diminished. There is no pedal edema. There is no DVT S cellulitis. There is no sinus or clubbing. There is no calf tenderness. PREP COOK: Patient is conscious awake at present seems to be oriented x3 with no focal deficit. PSYCHIATRIC: The patient judgment insight and insight at this time appear to be intact. The patient is not agitated. 05/15/18 05/15/18 05/15/18 04:35 04:35 10:42 WBC 5.0 Hgb 9.9 L Hct 29.9 L Plt Count 256 PT 32.8 H INR 3.03 Sodium 136.2 L Potassium 4.6 Chloride 95 L Carbon Dioxide 26 Anion Gap 15 BUN 50 H Creatinine 7.46 H Est GFR ( Amer) 6 L Glucose 120 H Calcium 8.6 Total Bilirubin 0.7 Direct Bilirubin 0.6 H Neonat Total Bilirubin Not Reportable Neonat Direct Bilirubin Not Reportable Neonat Indirect Bili Not Reportable AST 23 ALT 13 Alkaline Phosphatase 154 H Total Protein 7.8 Albumin 3.8 EKG: Shows atrial flutter with rapid ventricular response. Left anterior hemiblock, and right bundle branch block pattern. 1. Atrial fibrillation with fast ventricular response. At present the patient is in atrial flutter with rapid ventricular response. In spite of the patient being on Cardizem infusion at 15 mg/h, her heart rate is still around 126-130 bpm. Hence we will start the patient on amiodarone bolus and infusion. I have discussed the benefits and side effects and complications associated with amiodarone therapy. Including the possibility of developing a CVA. The patient has given me informed consent to start this drip. 2. Prosthetic [place] aortic valve replacement and mitral valve replacement. There is moderate restenosis of the aortic valve. Also the patient is INR is subtherapeutic. We will give an extra dose of Coumadin along with her usual dose of Coumadin tonight. 3. Severe tricuspid regurgitation: We will see if Cardizem will help this. We will get records from [facility] a month since the patient a few months ago was sent there for possible tricuspid valve annuloplasty. Still awaiting records from [facility]. 4. Severe pulmonary hypertension. 5. Past history of hypertension. At present blood pressure low requiring Midodrine to be able to give medicines that can cause the blood pressure to go down. 6. End-stage renal disease: Continue hemodialysis. 7. EARLY DEMENTIA: At present patient seems to be doing fairly well. 8. COPD: No acute exacerbation. 4. Severe pulmonary hypertension. 5. Past history of hypertension. At present blood pressure low requiring Midrin to be able to give medicines that can cause the blood pressure to go down. 6. End-stage renal disease: Continue hemodialysis. 7. EARLY DEMENTIA: At present patient seems to be doing fairly well. 8. COPD: No acute exacerbation. 9. Possible right lower lobe pneumonia: Consider antibiotics. 10. CHEST WALL PAIN: This is reproducible, and not anginal. Recommend analgesics. Her medications have been reviewed, medications added. Discussed with the attending physician and coordinated care with them. Medical decision making is of high complexity. 40 minutes spent on this patient more than 50% of time spent in direct patient care. We will follow with you. Test the plan of care with the other caregiving providers on the case.
[2018-05-15] MEDS: ATORVASTATIN CALCIUM 20 MG TABLET PO SCH (21:27)
[2018-05-15] MEDS: LORAZEPAM 1 MG TABLET PO PRN (21:31)
[2018-05-15] MEDS ORDERED: WARFARIN SODIUM 7.5 MG TABLET PO SCH (22:00)
[2018-05-15] MEDS ORDERED: WARFARIN SODIUM 5 MG TABLET PO SCH (22:00)
[2018-05-16 02:07] LABS: CREATINE KINASE MB 1.49 ng/mL (<4.55); TROPONIN I 0.04 ng/mL
[2018-05-16] MEDS: LANSOPRAZOLE 30 MG TAB.RAP.DR PO SCH ×2 (06:38→17:34)
[2018-05-16 06:56] LABS: ALANINE AMINOTRANSFERASE 13 U/L (9-52); ALBUMIN 3.9 g/dL (3.5-5.0); ALKALINE PHOSPHATASE 162 U/L (38-126); ANION GAP 14 (5-19); ASPARTATE AMINO TRANSFERASE 24 U/L (14-36); BILIRUBIN,DIRECT 0.5 mg/dL (0.0-0.4); BILIRUBIN,TOTAL 0.6 mg/dL (0.2-1.3); BLOOD UREA NITROGEN 30 mg/dL (7-20); CALCIUM 8.9 mg/dL (8.4-10.2); CARBON DIOXIDE 28 mmol/L (22-30); CHLORIDE 95 mmol/L (98-107); GLUCOSE 110 mg/dL (75-110); POTASSIUM 4.6 mmol/L (3.6-5.0); SODIUM 137.4 mmol/L (137-145); TOTAL PROTEIN 7.7 g/dL (6.3-8.2)
--- NOTE | 2018-05-16 09:45 | EKG REPORT ---
SEVERITY:- ABNORMAL ECG - A FIB/FLUTTER. RIGHT BUNDLE BRANCH BLOCK LVH WITH SECONDARY REPOLARIZATION ABNORMALITY INFERIOR INFARCT, AGE INDETERMINATE : Confirmed by: Michael Foster MD 16-May-2018 09:45:05
[2018-05-16] MEDS: MIDODRINE HCL 5 MG TABLET PO SCH ×3 (10:04→17:34)
[2018-05-16] MEDS: FOLIC ACID 1 MG TABLET PO SCH (10:04)
[2018-05-16] MEDS: ASPIRIN 81 MG TABLET, ENT COATED PO SCH (10:04)
[2018-05-16] MEDS: FERROUS SULFATE 325 MG TABLET PO SCH ×3 (10:04→17:34)
[2018-05-16] MEDS: ESCITALOPRAM OXALATE 10 MG TABLET PO SCH (10:04)
[2018-05-16] MEDS ORDERED: DIGOXIN INJ 0.5 MG/2 ML AMPULE IV ONE (12:30)
[2018-05-16] MEDS: NITROGLYCERIN 0.4 MG/TAB 25 TAB/BOTTLE SL PRN ×2 (15:03→15:10)
[2018-05-16 16:18] LABS: ARTERIAL BLOOD BASE EXCESS 3.6 mmol/L; ARTERIAL BLOOD H2CO3 1.68 mmol/L (1.05-1.35); ARTERIAL BLOOD HCO3 30.3 mmol/L (20-24); ARTERIAL BLOOD O2 SATURATION 89.2 % (94-98); ARTERIAL BLOOD PCO2 55.8 mmHg (35-45); ARTERIAL BLOOD PH 7.35 (7.35-7.45); ARTERIAL BLOOD PO2 59.6 mmHg (80-100)
[2018-05-16 16:20] LABS: ARTERIAL BLOOD FIO2 5L
--- NOTE | 2018-05-16 16:22 | RADIOLOGY REPORT (SQ) ---
EXAM DESCRIPTION: CHEST SINGLE VIEW COMPLETED DATE/TIME: 05/16/2018 4:06 pm REASON FOR STUDY: SOB, COMPARISON: 05/14/2018 EXAM PARAMETERS: NUMBER OF VIEWS: One view. TECHNIQUE: Single frontal radiographic view of the chest acquired. RADIATION DOSE: NA LIMITATIONS: None. FINDINGS: LUNGS AND PLEURA: Re- demonstration of right lower lung consolidation and pleural effusion . No new focal consolidation. No pneumothorax. MEDIASTINUM AND HILAR STRUCTURES: No masses. Contour normal. HEART AND VASCULAR STRUCTURES: Stable cardiomegaly. No central vascular congestion. BONES: No acute findings. HARDWARE: Midline surgical changes and dialysis catheter appear stable. OTHER: No other significant finding. IMPRESSION: Stable radiographic appearance of the chest, again demonstrating right lower lung consol idation with layering pleural effusion. TECHNICAL DOCUMENTATION: JOB ID: [id number] [employer] ([id number] All Rights Reserved Reading location - IP/workstation name: [email or web address]
[2018-05-16 16:35] LABS: PROTHROMBIN TIME 39.2 SEC (11.4-15.4)
[2018-05-16] MEDS: DEXTROSE 5%-WATER 500 ML with AMIODARONE HCL 900 MG IV PRN ×2 (16:42)
--- NOTE | 2018-05-16 18:10 | PDOC PROGRESS REPORT ---
Subjective Progress Note for:: 05/16/18 Subjective:: 77-year-old female past medical history of hypotension my daughter and dependent , ESRD on HD TTS, A. fib, CHF, CAD, hyperlipidemia, aortic and mitral valve replacement, COPD, pleural effusion history of previous thoracentesis. She also has a history of noncompliance due to poor social support and memory problem. Patient presented to ED on 05/11/2018 complaining of shortness of breath after missing her hemodialysis on Friday. She will also have an issue of excessive volume overload without the ability to remove enough fluid due to underlying low blood pressure. In ED she was found to have volume overload with hyperkalemia without any EKG changes, hypotension and tachycardia. Nephrology was consulted and patient is a status post hemodialysis with 2 L fluid removal. 05/12/2018. No acute events overnight. On my encounter patient is laying in her bed with the head elevated not in any apparent distress. Patient is alert oriented and very pleasant and cooperative with physical and history. Patient denies any fever, chills, nausea, vomiting, diarrhea, shortness of breath, chest pain or any urinary symptoms. She states that she is living with her and her daughter who is administering her medications. I talked with her daughter Dary over the phone who is responsible for administering her medications at home. Based on my conversation with her she is knowledgeable about her mother's medications. She stated that she takes her medication but sometimes she is not compliant with her medications. She stated that she missed her last dose of Coumadin. She used to have home health who would visit her every other week to check her INR however recently the care has been transferred to [facility] where she receives her dialysis. Dr. Branch is her PCP. As per daughter last was 2.6. 05/13/2018. No acute events overnight. Upon my encounter patient is laying in bed does not seem to be in any acute distress. He is alert and oriented and she is very pleasant and cooperative with physical examination. She is scheduled for hemodialysis today. She denies any fever, chills, nausea, vomiting, diarrhea, constipation, chest pain or any urinary symptoms. 05/14/2018. No acute events overnight. Status post hemodialysis on 2017. Patient states she could not get a good night sleep but does not specify why. She denies any pain. She is p.o. tolerant and tolerating her medications. She is only complaining of dyspnea on exertion otherwise she is denying any chest pain, fever, chills, nausea, vomiting, diarrhea, constipation or any urinary symptoms. 05/15/2018. No acute events overnight. Patient is status post hemodialysis. After patient came back from hemodialysis was complaining of pressure-like chest pain. Stat EKG was done which did not show any acute changes compared to previous EKG. First set of troponin was 0.04. Patient was given some morphine and aspirin which subsided her chest pain. I rounded on patient several times during the day my last encounter she stated that her chest pain has resolved. Patient is p.o. tolerant and ambulating. She denies any fever, chills, shortness of breath, nausea, vomiting, diarrhea, constipation or any urinary symptoms. 05/16/2018. Patient has been having on and off chest pain throughout the day. Dr. Unger her medical reimbursement manager is aware and has been following. Patient was started on amiodarone drip by cardiology yesterday and her heart rate has been better controlled. In the afternoon patient was having shortness of breath and an ABG was done which showed hypoxemia. Concern was raised for possible PE unfortunately patient is a hemodialysis patient and radiology refused to do CTA because she will not be receiving hemodialysis until Friday. VQ scan is pending. Meanwhile patient has been started on BiPAP with low threshold to be transferred to ICU. Her cardiac enzymes have been negative. Reason For Visit: VOLUME OVERLOAD Physical Exam Vital Signs: Temp Pulse Resp BP Pulse Ox 98.1 F 113 H 20 136/59 H 93 05/16/18 16:03 05/16/18 16:03 05/16/18 16:03 05/16/18 16:00 05/16/18 16:03 Intake & Output 05/15/18 05/16/18 05/17/18 06:59 06:59 06:59 Intake Total 798 870.5 537 Output Total 1800 Balance 798 -929.5 537 Weight 69.3 kg 69.3 kg Results Laboratory Results: 05/15/18 04:35 05/16/18 06:10 05/15/18 05/16/18 05/16/18 18:55 06:10 15:53 Carbonic Acid 1.68 H HCO3/H2CO3 Ratio 18:1 ABG pH 7.35 ABG pCO2 55.8 H ABG pO2 59.6 L ABG HCO3 30.3 H ABG O2 Saturation 89.2 L ABG Base Excess 3.6 FiO2 5L Sodium 137.4 Potassium 4.6 Chloride 95 L Carbon Dioxide 28 Anion Gap 14 BUN 30 H Creatinine 4.93 H Est GFR ( Amer) 10 L Est GFR (Non-Af Amer) 9 L Glucose 110 Calcium 8.9 Phosphorus 4.1 Magnesium 2.0 Total Bilirubin 0.6 AST 24 ALT 13 Alkaline Phosphatase 162 H Total Protein 7.7 Albumin 3.9 05/15/18 05/15/18 05/15/18 13:42 13:42 18:55 Creatine Kinase 36 33 CK-MB (CK-2) 1.48 Troponin I 0.040 05/15/18 05/16/18 05/16/18 18:55 01:16 01:16 Creatine Kinase 23 L CK-MB (CK-2) 1.49 1.49 Troponin I 0.043 0.040 Impressions: Chest X-Ray 05/16/18 00:00 IMPRESSION: Stable radiographic appearance of the chest, again demonstrating right lower lung consolidation with layering pleural effusion. Assessment & Plan - Diagnosis (1) Acute hypoxemic respiratory failure Is this a current diagnosis for this admission?: Yes Plan: It is possible that patient has developed a PE. Chest x-ray did not show any acute changes, ABG was positive for hypoxia and hypercarbia. CTA was ordered however radiology refused to do the CTA because of the fact that patient is a hemodialysis patient and she will not be getting hemodialysis until Friday. VQ scan was ordered. Also ordered a lower extremity Doppler. Patient already is on warfarin and therapeutic. Started on BiPAP with low threshold to transfer to ICU. (2) Chest pain Qualifiers: Chest pain type: unspecified Qualified Code(s): R07.9 - Chest pain, unspecified Is this a current diagnosis for this admission?: Yes Plan: Unlikely cardiac. Resolved. EKG negative for any acute changes. Initial troponin 0.04. Continue aspirin, trend troponins. Dr. Unger her medical reimbursement manager is aware of her chest pain and stating that is likely noncardiac likely musculoskeletal. (3) End stage renal failure on dialysis Is this a current diagnosis for this admission?: No Plan: On hemodialysis Friday and Friday. That is post hemodialysis today. Monitor volume status, fluid restrictions, renal diet. Nephrology following. (4) Hypotension Qualifiers: Hypotension type: unspecified hypotension type Qualified Code(s): I95.9 - Hypotension, unspecified Is this a current diagnosis for this admission?: No Plan: Resolved. Continue midodrine. Patient has a history of noncompliance as per my conversation with her daughter. (5) Volume overload Is this a current diagnosis for this admission?: Yes Plan: Due to underlying end-stage renal disease, CHF. On hemodialysis TTS. Status post hemodialysis 05/15/2018. (6) Anemia in chronic kidney disease Qualifiers: Chronic kidney disease stage: on chronic dialysis Qualified Code(s): N18.6 - End stage renal disease; D63.1 - Anemia in chronic kidney disease; D63.1 - Anemia in chronic kidney disease; Z99.2 - Dependence on renal dialysis; Z99.2 - Dependence on renal dialysis; Z99.2 - Dependence on renal dialysis; Z99.2 - Dependence on renal dialysis Is this a current diagnosis for this admission?: No Plan: H&H stable. Epogen on dialysis days. Continue ferrous sulfate. (7) Atrial fibrillation Qualifiers: Atrial fibrillation type: chronic Qualified Code(s): I48.2 - Chronic atrial fibrillation Is this a current diagnosis for this admission?: Yes Plan: [id number] 4. Cardizem drip. Started on amiodarone 05/15/2018. Not rate controlled. INR therapeutic. Continue warfarin. INR tomorrow in a.m. Patient is noncompliant with her medications as per her daughter. INR is 1.59 on admission. As per cardiology note on 11/03/2017 patient was referred to [facility] for possible placement of pacemaker and ablation however she was declined. (8) COPD (chronic obstructive pulmonary disease) Qualifiers: COPD type: unspecified COPD Qualified Code(s): J44.9 - Chronic obstructive pulmonary disease, unspecified Is this a current diagnosis for this admission?: No Plan: Stable. Unlikely unlikely she is on COPD patient. Shortness of breath have improved may have been due to volume overload due to underlying end-stage renal disease. Continue nebs as needed. (9) Congestive heart failure Is this a current diagnosis for this admission?: No Plan: Combined systolic and diastolic dysfunction. Echo on 05/12/2018 ejection fraction is 45-50%. Echo on 09/2017 normal ejection fraction with moderate diastolic failure. Status post hemodialysis on 05/11/2018. 2 L removed. Monitor vital status and volume status. Continue cardiac diet and fluid restrictions. (10) Hypotension Is this a current diagnosis for this admission?: Yes Plan: Normotensive. Continue Midodrine (11) Mechanical heart valve present Is this a current diagnosis for this admission?: No Plan: On Coumadin with goal INR of 2.5-3.5. Echo from 05/13/2018 shows restenosis of the prosthetic aortic valve with peak gradient of 40 mmHg with no regurgitation and mechanical mitral valve no restenosis with trace mitral regurgitation. Cardiology following. Recommendation for INR was between 2.5-3.5. INR tomorrow. Notes. As per cardiology consult on 11/13/2017 anticoagulation was deferred to block tester as patient is end-stage renal disease and on hemodialysis. (12) Pulmonary hypertension, moderate to severe Is this a current diagnosis for this admission?: No Plan: 2D echo from 05/13/2018 suggestive of severe pulmonary hypertension. RVSP is 79 -78 mmHg. With mean RA of 15-20. Pending pulmonary recommendation.
--- NOTE | 2018-05-16 19:54 | RADIOLOGY REPORT (SQ) ---
EXAM DESCRIPTION: NM LUNG VENT/PERF SCAN COMPLETED DATE/TIME: 05/16/2018 7:25 pm REASON FOR STUDY: shortness of breath COMPARISON: Chest radiograph 05/16/2018 RADIONUCLIDE AND DOSE: 5.35 millicuries TC-99m MAA Intravenous 32.5 millicuries TC-99m DTPA Inhaled aerosol TECHNIQUE: Two views of the lungs acquired post ventilation of DTPA aerosol. Eight matching views o f the lungs acquired following injection of MAA. LIMITATIONS: Patient was unable to comply with reading techniques required for the ventilation porti on of this examination. FINDINGS: VENTILATION: Inhomogeneous distribution of DTPA due to patient being short of breath. PERFUSION: Perfusion images with mildly heterogeneous activity with no wedge-shaped or segmental defe cts. . OTHER: No other significant finding. IMPRESSION: Limited examination. No segmental or wedge-shaped perfusion defects. TECHNICAL DOCUMENTATION: JOB ID: [id number] [employer]- All Rights Reserved Reading location - IP/workstation name: [email or web address]
--- NOTE | 2018-05-16 20:22 | Progress Note ---
Provider Note Provider Note: CARDIOLOGY PROGRESS NOTE by Dr. Elizabeth Unger on 05/16/2018. SUBJECTIVE the patient has chest wall pain reproducible by pressing on the left lower front of the chest. She also does have some shortness of breath. There is no cough. She denies any PND orthopnea. The patient continues to be in atrial flutter/fib with rapid ventricular response. Her EKG shows atrial flutter with right bundle branch block pattern, left axis deviation due to left atrial vascular block. There is no acute NC. Her troponins are negative. There is no leg edema. The patient denies any dizziness or syncope or near syncope. There is no bleeding on current anticoagulation. The patient is on Coumadin and her INR is therapeutic. On examination the patient is a frail build. She looks chronically ill. At present even though she is slightly short of breath, she is no tender or any major distress. Selected Entries 05/16/18 05/16/18 12:00 12:07 Temperature 98.3 F Temperature Oral Source Pulse Rate 118 H Respiratory 22 H Rate Blood Pressure 129/63 H O2 Sat by Pulse 91 L Oximetry Oxygen Flow 2.00 Rate Oxygen Delivery Nasal Cannula Method HEAD: Is atraumatic normocephalic. EYES: Pupils are equal round regular reactive to light and accommodation. Extraocular movements are normal. There is no clinical pallor. ENT: Is negative. Neck is supple there is no JVD. There is transmitted aortic stenosis murmur over both carotids. Has mild carotid delay. There is no lymphadenopathy. There is no JVD. There is no carotid bruits. There is no lymphadenopathy trachea central LUNGS: There is diminished air entry and prolonged expiration throughout. There is chest wall tenderness on palpation. On percussion there is hyperresonance except for the area of dullness in the right lower lobe, where there is also absent breath sounds.. HEART: S1-S2 is heard. S1 is of variable intensity. Prosthetic crisp clicks of the mitral and aortic valve heard well. There is murmur of aortic stenosis present there is no aortic regurgitation murmur. There is no mitral regurgitation murmur. There is no rub there is no S3 or S4 gallops. ABDOMEN: Is soft nontender there is no hepatosplenomegaly. Bowel sounds well heard. EXTREMITIES: Femorals are diminished. There is no femoral bruits. Leg pulses are diminished. There is no pedal edema. There is no DVT S cellulitis. There is no sinus or clubbing. There is no calf tenderness. LOG HOOKER: Patient is conscious awake at present seems to be oriented x3 with no focal deficit. PSYCHIATRIC: The patient judgment insight and insight at this time appear to be intact. The patient is not agitated. 05/16/18 05/16/18 05/16/18 01:16 06:10 15:53 PT INR Carbonic Acid 1.68 H HCO3/H2CO3 Ratio 18:1 ABG pH 7.35 ABG pCO2 55.8 H ABG pO2 59.6 L ABG HCO3 30.3 H ABG Total CO2 32.0 H ABG O2 Saturation 89.2 L ABG Base Excess 3.6 FiO2 5L Sodium 137.4 Potassium 4.6 Chloride 95 L Carbon Dioxide 28 Anion Gap 14 BUN 30 H Creatinine 4.93 H Est GFR ( Amer) 10 L Glucose 110 Calcium 8.9 Magnesium 2.0 Total Bilirubin 0.6 Direct Bilirubin 0.5 H Neonat Total Bilirubin Not Reportable Neonat Direct Bilirubin Not Reportable Neonat Indirect Bili Not Reportable AST 24 ALT 13 Alkaline Phosphatase 162 H CK-MB (CK-2) 1.49 Troponin I 0.040 Total Protein 7.7 Albumin 3.9 05/16/18 16:12 PT 39.2 H INR 3.80 Carbonic Acid HCO3/H2CO3 Ratio ABG pH ABG pCO2 ABG pO2 ABG HCO3 ABG Total CO2 ABG O2 Saturation ABG Base Excess FiO2 Sodium Potassium Chloride Carbon Dioxide Anion Gap BUN Creatinine Est GFR ( Amer) Glucose Calcium Magnesium Total Bilirubin Direct Bilirubin Neonat Total Bilirubin Neonat Direct Bilirubin Neonat Indirect Bili AST ALT Alkaline Phosphatase CK-MB (CK-2) Troponin I Total Protein Albumin CHEST X-ray: Shows right lower lobe consolidation with effusion. There is no congestive heart failure. IMPRESSION/RECOMMENDATION: 1. Atrial fibrillation with fast ventricular response. At present the patient is in atrial flutter with rapid ventricular response. In spite of the patient being on Cardizem infusion at 15 mg/h, her heart rate is still around 126-130 bpm. Hence we will start the patient on amiodarone bolus and infusion. I have discussed the benefits and side effects and complications associated with amiodarone therapy. Including the possibility of developing a CVA. The patient has given me informed consent to start this drip. 2. Prosthetic [place] aortic valve replacement and mitral valve replacement. There is moderate restenosis of the aortic valve. Also the patient is INR is subtherapeutic. We will give an extra dose of Coumadin along with her usual dose of Coumadin tonight. 3. Severe tricuspid regurgitation: We will see if Cardizem will help this. We will get records from [facility] a month since the patient a few months ago was sent there for possible tricuspid valve annuloplasty. Still awaiting records from [facility]. 4. Severe pulmonary hypertension. 5. Past history of hypertension. At present blood pressure low requiring Midodrine to be able to give medicines that can cause the blood pressure to go down. 6. End-stage renal disease: Continue hemodialysis. 7. EARLY DEMENTIA: At present patient seems to be doing fairly well. 8. COPD: No acute exacerbation. 4. Severe pulmonary hypertension. 5. Past history of hypertension. At present blood pressure low requiring Midrin to be able to give medicines that can cause the blood pressure to go down. 6. End-stage renal disease: Continue hemodialysis. 7. EARLY DEMENTIA: At present patient seems to be doing fairly well. 8. COPD: No acute exacerbation. 9. CHEST WALL PAIN: This is reproducible, and not anginal. Recommend analgesics. 10. Possible right lower lobe pneumonia, with consolidation and effusion. Consider antibiotics. Note the ABG shows some hypoxia. There is no evidence of congestive heart failure clinically and by chest x-ray. Medications reviewed. Management plan discussed with the attending physician. Review of the patient's INR being 3.80 will decrease the patient's Coumadin dosage. Medical decision making history of high complexity. 40 minutes spent on this patient with more than 50% of time spent in direct patient care. We will follow with you.
--- NOTE | 2018-05-16 21:09 | RADIOLOGY REPORT (SQ) ---
EXAM DESCRIPTION: US EXTREMITY VEINS BILATERAL COMPLETED DATE/TME: 05/16/2018 00:00 CLINICAL HISTORY: 77 years Female Hypoxia. Rule out DVT COMPARISON: None. TECHNIQUE: Duplex imaging performed to evaluate bilateral lower extremity venous structures. Compression imaging and augmentation imaging performed. The common femoral, superficial femoral, popliteal, greater saphenous and posterior tibial veins were examined. FINDINGS: No thrombus is identified in the bilateral lower extremity venous structures. IMPRESSION: No DVT is identified in the bilateral lower extremities.
[2018-05-16] MEDS: ATORVASTATIN CALCIUM 20 MG TABLET PO SCH (21:27)
[2018-05-16] MEDS ORDERED: DILTIAZEM HCL INJ 25 MG/5 ML VIAL IV ONE (21:30)
[2018-05-16] MEDS ORDERED: WARFARIN SODIUM 5 MG TABLET PO ONE (22:00)
[2018-05-17] MEDS: MORPHINE SULFATE 10 MG/ML INJ IV PRN (01:53)
[2018-05-17 06:37] LABS: HEMATOCRIT 29.8 % (36.0-47.0); HEMOGLOBIN 9.6 g/dL (12.0-15.5); MEAN CORPUSCULAR HEMOGLOBIN 32.7 pg (27.0-33.4); MEAN CORPUSCULAR HGB CONC 32.2 g/dL (32.0-36.0); MEAN CORPUSCULAR VOLUME 102 fl (80-97); PLATELET COUNT 251 10^3/uL (150-450); RED BLOOD COUNT 2.94 10^6/uL (3.72-5.28); RED CELL DISTRIBUTION WIDTH 18.3 % (11.5-14.0); WHITE BLOOD COUNT 5.2 10^3/uL (4.0-10.5)
[2018-05-17 06:40] LABS: INTERNATIONAL RATION (INR) 4.19; PROTHROMBIN TIME 42.3 SEC (11.4-15.4)
[2018-05-17 06:53] LABS: ALANINE AMINOTRANSFERASE 15 U/L (9-52); ALBUMIN 3.8 g/dL (3.5-5.0); ALKALINE PHOSPHATASE 147 U/L (38-126); ANION GAP 14 (5-19); ASPARTATE AMINO TRANSFERASE 23 U/L (14-36); BILIRUBIN,DIRECT 0.6 mg/dL (0.0-0.4); BILIRUBIN,TOTAL 0.6 mg/dL (0.2-1.3); BLOOD UREA NITROGEN 44 mg/dL (7-20); CALCIUM 8.9 mg/dL (8.4-10.2); CARBON DIOXIDE 28 mmol/L (22-30); CHLORIDE 93 mmol/L (98-107); GLUCOSE 120 mg/dL (75-110); POTASSIUM 5.2 mmol/L (3.6-5.0); SODIUM 134.5 mmol/L (137-145); TOTAL PROTEIN 7.7 g/dL (6.3-8.2)
[2018-05-17 07:08] LABS: ABSOLUTE LYMPHOCYTES# (MANUAL) 0.6 10^3/uL (0.5-4.7); ABSOLUTE MONOCYTES # (MANUAL) 0.4 10^3/uL (0.1-1.4); ABSOLUTE NEUTROPHILS# (MANUAL) 4.3 10^3/uL (1.7-8.2); BASOPHILS % (MANUAL) 0 % (0-2); EOSINOPHILS % (MANUAL) 0 % (0-6); LYMPHOCYTES % (MANUAL) 11 % (13-45); MONOCYTES % (MANUAL) 7 % (3-13); SEGMENTED NEUTROPHILS % (MAN) 82 % (42-78); TOTAL CELLS COUNTED 100
[2018-05-17 07:09] LABS: ANISOCYTOSIS 1+; PLATELET COMMENT ADEQUATE; POLYCHROMASIA 1+
[2018-05-17] MEDS ORDERED: WARFARIN SODIUM 7.5 MG TABLET PO SCH ×2 (07:18→08:00)
[2018-05-17] MEDS: LANSOPRAZOLE 30 MG TAB.RAP.DR PO SCH ×2 (07:24→17:35)
[2018-05-17] MEDS: ESCITALOPRAM OXALATE 10 MG TABLET PO SCH (10:01)
[2018-05-17] MEDS: ASPIRIN 81 MG TABLET, ENT COATED PO SCH (10:01)
[2018-05-17] MEDS: FOLIC ACID 1 MG TABLET PO SCH (10:01)
[2018-05-17] MEDS: FERROUS SULFATE 325 MG TABLET PO SCH ×3 (10:01→17:35)
--- NOTE | 2018-05-17 10:08 | PDOC PROGRESS REPORT ---
Subjective Progress Note for:: 05/17/18 Subjective:: 77-year-old female past medical history of hypotension my daughter and dependent , ESRD on HD TTS, A. fib, CHF, CAD, hyperlipidemia, aortic and mitral valve replacement, COPD, pleural effusion history of previous thoracentesis. She also has a history of noncompliance due to poor social support and memory problem. Patient presented to ED on 05/11/2018 complaining of shortness of breath after missing her hemodialysis on Friday. She will also have an issue of excessive volume overload without the ability to remove enough fluid due to underlying low blood pressure. In ED she was found to have volume overload with hyperkalemia without any EKG changes, hypotension and tachycardia. Nephrology was consulted and patient is a status post hemodialysis with 2 L fluid removal. 05/12/2018. No acute events overnight. On my encounter patient is laying in her bed with the head elevated not in any apparent distress. Patient is alert oriented and very pleasant and cooperative with physical and history. Patient denies any fever, chills, nausea, vomiting, diarrhea, shortness of breath, chest pain or any urinary symptoms. She states that she is living with her and her daughter who is administering her medications. I talked with her daughter Dary over the phone who is responsible for administering her medications at home. Based on my conversation with her she is knowledgeable about her mother's medications. She stated that she takes her medication but sometimes she is not compliant with her medications. She stated that she missed her last dose of Coumadin. She used to have home health who would visit her every other week to check her INR however recently the care has been transferred to [facility] where she receives her dialysis. Dr. Branch is her PCP. As per daughter last was 2.6. 05/13/2018. No acute events overnight. Upon my encounter patient is laying in bed does not seem to be in any acute distress. He is alert and oriented and she is very pleasant and cooperative with physical examination. She is scheduled for hemodialysis today. She denies any fever, chills, nausea, vomiting, diarrhea, constipation, chest pain or any urinary symptoms. 05/14/2018. No acute events overnight. Status post hemodialysis on 2017. Patient states she could not get a good night sleep but does not specify why. She denies any pain. She is p.o. tolerant and tolerating her medications. She is only complaining of dyspnea on exertion otherwise she is denying any chest pain, fever, chills, nausea, vomiting, diarrhea, constipation or any urinary symptoms. 05/15/2018. No acute events overnight. Patient is status post hemodialysis. After patient came back from hemodialysis was complaining of pressure-like chest pain. Stat EKG was done which did not show any acute changes compared to previous EKG. First set of troponin was 0.04. Patient was given some morphine and aspirin which subsided her chest pain. I rounded on patient several times during the day my last encounter she stated that her chest pain has resolved. Patient is p.o. tolerant and ambulating. She denies any fever, chills, shortness of breath, nausea, vomiting, diarrhea, constipation or any urinary symptoms. 05/16/2018. Patient has been having on and off chest pain throughout the day. Dr. Unger her digital associate media director is aware and has been following. Patient was started on amiodarone drip by cardiology yesterday and her heart rate has been better controlled. In the afternoon patient was having shortness of breath and an ABG was done which showed hypoxemia. Concern was raised for possible PE unfortunately patient is a hemodialysis patient and radiology refused to do CTA because she will not be receiving hemodialysis until Friday. VQ scan is pending. Meanwhile patient has been started on BiPAP with low threshold to be transferred to ICU. Her cardiac enzymes have been negative. 05/17/2018. No acute events overnight. Chest pain has resolved and patient is not short of breath anymore. On my encounter she is comfortably resting in bed with nasal cannula. She denies any fever, chest pain, shortness of breath, diarrhea, was patient or any urinary symptoms.. Reason For Visit: VOLUME OVERLOAD Physical Exam Vital Signs: Temp Pulse Resp BP Pulse Ox 97.9 F 106 H 20 140/73 H 91 L 05/17/18 07:32 05/17/18 07:32 05/17/18 07:32 05/17/18 07:32 05/17/18 08:00 Intake & Output 05/16/18 05/17/18 05/18/18 06:59 06:59 06:59 Intake Total 870.5 755 Output Total 1800 0 Balance -929.5 755 Weight 69.3 kg 69.1 kg General appearance: PRESENT: no acute distress Respiratory exam: PRESENT: clear to auscultation kee, decreased breath sounds - Right lower lobe. ABSENT: rales, rhonchi, wheezes Cardiovascular exam: PRESENT: RRR, other - Tender to palpation over left lateral aspect of the sternum.. ABSENT: diastolic murmur, rubs, systolic murmur Neurological exam: PRESENT: alert, awake, oriented to person, oriented to place , oriented to time, oriented to situation, CN II-XII grossly intact. ABSENT: motor sensory deficit Skin exam: PRESENT: dry, intact, warm. ABSENT: cyanosis, rash Results Laboratory Results: 05/17/18 05:32 05/17/18 05:32 05/16/18 05/16/18 05/17/18 06:10 15:53 05:32 WBC 5.2 RBC 2.94 L Hgb 9.6 L Hct 29.8 L MCV 102 H MCH 32.7 MCHC 32.2 RDW 18.3 H Plt Count 251 Seg Neutrophils % Not Reportable Lymphocytes % Not Reportable Monocytes % Not Reportable Eosinophils % Not Reportable Basophils % Not Reportable Absolute Neutrophils Not Reportable Absolute Lymphocytes Not Reportable Absolute Monocytes Not Reportable Absolute Eosinophils Not Reportable Absolute Basophils Not Reportable Carbonic Acid 1.68 H HCO3/H2CO3 Ratio 18:1 ABG pH 7.35 ABG pCO2 55.8 H ABG pO2 59.6 L ABG HCO3 30.3 H ABG O2 Saturation 89.2 L ABG Base Excess 3.6 FiO2 5L Sodium Potassium Chloride Carbon Dioxide Anion Gap BUN Creatinine Est GFR ( Amer) Est GFR (Non-Af Amer) Glucose Calcium Phosphorus 4.9 H Magnesium Total Bilirubin AST ALT Alkaline Phosphatase Total Protein Albumin 05/17/18 05:32 WBC RBC Hgb Hct MCV MCH MCHC RDW Plt Count Seg Neutrophils % Lymphocytes % Monocytes % Eosinophils % Basophils % Absolute Neutrophils Absolute Lymphocytes Absolute Monocytes Absolute Eosinophils Absolute Basophils Carbonic Acid HCO3/H2CO3 Ratio ABG pH ABG pCO2 ABG pO2 ABG HCO3 ABG O2 Saturation ABG Base Excess FiO2 Sodium 134.5 L Potassium 5.2 H Chloride 93 L Carbon Dioxide 28 Anion Gap 14 BUN 44 H Creatinine 6.24 H Est GFR ( Amer) 8 L Est GFR (Non-Af Amer) 6 L Glucose 120 H Calcium 8.9 Phosphorus Magnesium 2.2 Total Bilirubin 0.6 AST 23 ALT 15 Alkaline Phosphatase 147 H Total Protein 7.7 Albumin 3.8 05/15/18 05/15/18 05/15/18 13:42 13:42 18:55 Creatine Kinase 36 33 CK-MB (CK-2) 1.48 Troponin I 0.040 05/15/18 05/16/18 05/16/18 18:55 01:16 01:16 Creatine Kinase 23 L CK-MB (CK-2) 1.49 1.49 Troponin I 0.043 0.040 Impressions: Chest X-Ray 05/16/18 00:00 IMPRESSION: Stable radiographic appearance of the chest, again demonstrating right lower lung consolidation with layering pleural effusion. Lung Scan-VQ NM 05/16/18 00:00 IMPRESSION: Limited examination. No segmental or wedge-shaped perfusion defects. Venous Doppler Study 05/16/18 00:00 IMPRESSION: No DVT is identified in the bilateral lower extremities. Assessment & Plan - Diagnosis (1) Acute hypoxemic respiratory failure Is this a current diagnosis for this admission?: Yes Plan: Improving. VQ scan and bilateral lower extremity ultrasound negative for any PE. Chest x-ray did not show any acute changes, ABG was positive for hypoxia and hypercarbia. CTA was ordered however radiology refused to do the CTA because of the fact that patient is a hemodialysis patient and she will not be getting hemodialysis until Friday. (2) Chest pain Qualifiers: Chest pain type: intercostal pain Qualified Code(s): R07.82 - Intercostal pain Is this a current diagnosis for this admission?: Yes Plan: Unlikely cardiac, most likely musculoskeletal. Reproducible. Tenderness palpation over left lateral aspect of sternum. Resolved. EKG negative for any acute changes. Initial troponin 0.04. Continue aspirin (3) End stage renal failure on dialysis Is this a current diagnosis for this admission?: No Plan: On hemodialysis Friday and Friday. That is post hemodialysis today. Monitor volume status, fluid restrictions, renal diet. Nephrology following. (4) Hypotension Qualifiers: Hypotension type: unspecified hypotension type Qualified Code(s): I95.9 - Hypotension, unspecified Is this a current diagnosis for this admission?: No Plan: Resolved. Patient is actually hypertensive today hold Midodrin. Start once clinically appropriate. (5) Volume overload Is this a current diagnosis for this admission?: Yes Plan: Euvolemic now. Due to underlying end-stage renal disease, CHF. On hemodialysis TTS. Status post hemodialysis 05/15/2018. (6) Anemia in chronic kidney disease Qualifiers: Chronic kidney disease stage: on chronic dialysis Qualified Code(s): N18.6 - End stage renal disease; D63.1 - Anemia in chronic kidney disease; D63.1 - Anemia in chronic kidney disease; Z99.2 - Dependence on renal dialysis; Z99.2 - Dependence on renal dialysis; Z99.2 - Dependence on renal dialysis; Z99.2 - Dependence on renal dialysis Is this a current diagnosis for this admission?: No Plan: H&H stable. Epogen on dialysis days. Continue ferrous sulfate. (7) Atrial fibrillation Qualifiers: Atrial fibrillation type: chronic Qualified Code(s): I48.2 - Chronic atrial fibrillation Is this a current diagnosis for this admission?: Yes Plan: [id number] 4. Cardizem drip. Started on amiodarone 05/15/2018. Not rate controlled. INR therapeutic. Continue warfarin. INR tomorrow in a.m. Patient is noncompliant with her medications as per her daughter. INR is 1.59 on admission. As per cardiology note on 11/03/2017 patient was referred to [facility] for possible placement of pacemaker and ablation however she was declined. (8) COPD (chronic obstructive pulmonary disease) Qualifiers: COPD type: unspecified COPD Qualified Code(s): J44.9 - Chronic obstructive pulmonary disease, unspecified Is this a current diagnosis for this admission?: No Plan: Stable. Unlikely unlikely she is on COPD patient. Shortness of breath have improved may have been due to volume overload due to underlying end-stage renal disease. Continue nebs as needed. (9) Congestive heart failure Is this a current diagnosis for this admission?: No Plan: Combined systolic and diastolic dysfunction. Echo on 05/12/2018 ejection fraction is 45-50%. Echo on 09/2017 normal ejection fraction with moderate diastolic failure. Status post hemodialysis on 05/11/2018. 2 L removed. Monitor vital status and volume status. Continue cardiac diet and fluid restrictions. (10) Hypotension Is this a current diagnosis for this admission?: Yes Plan: Resolved. Patient actually is hypertensive and will hold Midodrine and start when clinically appropriate. (11) Mechanical heart valve present Is this a current diagnosis for this admission?: No Plan: On Coumadin with goal INR of 2.5-3.5. Echo from 05/13/2018 shows restenosis of the prosthetic aortic valve with peak gradient of 40 mmHg with no regurgitation and mechanical mitral valve no restenosis with trace mitral regurgitation. Cardiology following. Recommendation for INR was between 2.5-3.5. INR tomorrow. Notes. As per cardiology consult on 11/13/2017 anticoagulation was deferred to blending coordinator as patient is end-stage renal disease and on hemodialysis. (12) Pulmonary hypertension, moderate to severe Is this a current diagnosis for this admission?: No Plan: 2D echo from 05/13/2018 suggestive of severe pulmonary hypertension. RVSP is 79 -78 mmHg. With mean RA of 15-20. Pending pulmonary recommendation.
[2018-05-17] MEDS: ACETAMINOPHEN 325 MG TABLET PO PRN (11:32)
[2018-05-17] MEDS ORDERED: AMIODARONE HCL 200 MG TABLET PO SCH ×2 (12:15→18:00)
[2018-05-17] MEDS ORDERED: HYDRALAZINE HCL INJ/PF 20 MG/1 ML SDV IV PRN (18:34)
--- NOTE | 2018-05-17 19:04 | Progress Note ---
Provider Note Provider Note: CARDIOLOGY PROGRESS NOTE by Dr. Elizabeth Unger/ 8. SUBJECTIVE: The patient's heart rate is much improved she is. She is still in atrial fibrillation, with a ventricular response is much improved. There is no TIA CVA symptoms. There is no chest pain except when pushed on by the chest. She denies any shortness of breath. There is no PND orthopnea or leg edema. There is no bleeding on Coumadin. INR is slightly supratherapeutic. There is no TIA CVA symptoms. PHYSICAL EXAMINATION: The patient appears to be chronically ill, but appears in no acute distress. Selected Entries 05/17/18 05/17/18 07:00 07:32 Temperature 97.9 F Temperature Oral Source Pulse Rate 84 106 H Respiratory 20 Rate Blood Pressure 140/73 H Blood Pressure 95 Mean BP Location Right Arm BP Position Supine O2 Sat by Pulse 93 Oximetry Oxygen Flow 5.00 Rate Oxygen Delivery Nasal Cannula Method HEAD: Is atraumatic normocephalic. EYES: Pupils are equal round regular reactive to light and accommodation. Extraocular movements are normal. There is no clinical pallor. ENT: Is negative. Neck is supple there is no JVD. There is transmitted aortic stenosis murmur over both carotids. Has mild carotid delay. There is no lymphadenopathy. There is no JVD. There is no carotid bruits. There is no lymphadenopathy trachea central LUNGS: There is diminished air entry and prolonged expiration throughout. There is chest wall tenderness on palpation. On percussion there is hyperresonance except for the area of dullness in the right lower lobe, where there is also absent breath sounds.. HEART: S1-S2 is heard. S1 is of variable intensity. Prosthetic crisp clicks of the mitral and aortic valve heard well. There is murmur of aortic stenosis present there is no aortic regurgitation murmur. There is no mitral regurgitation murmur. There is no rub there is no S3 or S4 gallops. ABDOMEN: Is soft nontender there is no hepatosplenomegaly. Bowel sounds well heard. EXTREMITIES: Femorals are diminished. There is no femoral bruits. Leg pulses are diminished. There is no pedal edema. There is no DVT S cellulitis. There is no sinus or clubbing. There is no calf tenderness. PANTS BUSHELER: Patient is conscious awake at present seems to be oriented x3 with no focal deficit. PSYCHIATRIC: The patient judgment insight and insight at this time appear to be intact. The patient is not agitated. 05/17/18 05/17/18 05/17/18 05:32 05:32 05:32 WBC 5.2 Hgb 9.6 L Hct 29.8 L Plt Count 251 PT 42.3 H INR 4.19 Sodium 134.5 L Potassium 5.2 H Chloride 93 L Carbon Dioxide 28 Anion Gap 14 BUN 44 H Creatinine 6.24 H Est GFR ( Amer) 8 L Calcium 8.9 Magnesium 2.2 Total Bilirubin 0.6 Direct Bilirubin 0.6 H Neonat Total Bilirubin Not Reportable Neonat Direct Bilirubin Not Reportable Neonat Indirect Bili Not Reportable AST 23 ALT 15 Alkaline Phosphatase 147 H Total Protein 7.7 Albumin 3.8 IMPRESSION/RECOMMENDATION: 1. Atrial fibrillation with fast ventricular response. At present the patient is in atrial fibrillation with a ventricular response in the 90s, hence much better controlled.. This is with the patient being on amiodarone bolus and infusion at 0.5 mL/min. Per minute. The patient's IV amiodarone infusion and start the patient on amiodarone 400 mg p.o. every 12 hours. Will use Cardizem on a as needed daily basis or if the patient's blood pressure sustains that would start the patient on Cardizem CD 120 mg p.o. every 12 hours from tomorrow. 2. Prosthetic [place] aortic valve replacement and mitral valve replacement. There is moderate restenosis of the aortic valve. Also the patient is INR is no above therapeutic goal. We will decrease the dose of Midrin tonight and recheck the patient's INR, and then set up a regimen of Coumadin for the patient 3. Severe tricuspid regurgitation: We will see if Cardizem will help this. We will get records from [facility] a month since the patient a few months ago was sent there for possible tricuspid valve annuloplasty. Still awaiting records from [facility]. As per the he states that [facility] stated that they could not do anything for her tricuspid valve regurgitation. 4. Severe pulmonary hypertension. 5. Past history of hypertension. At present blood pressure low requiring Midodrine to be able to give medicines that can cause the blood pressure to go down. 6. End-stage renal disease: Continue hemodialysis. 7. EARLY DEMENTIA: At present patient seems to be doing fairly well. 8. COPD: No acute exacerbation. 4. Severe pulmonary hypertension. 5. Past history of hypertension. At present blood pressure low requiring Midrin to be able to give medicines that can cause the blood pressure to go down. 6. End-stage renal disease: Continue hemodialysis. 7. EARLY DEMENTIA: At present patient seems to be doing fairly well. 8. COPD: No acute exacerbation. 9. CHEST WALL PAIN: This is reproducible, and not anginal. Recommend analgesics. 10. Possible right lower lobe pneumonia, with consolidation and effusion. Consider antibiotics. Patient denies any cough or sputum production. The patient is not febrile. Hence will check repeat chest x-ray in the morning. There is no evidence of congestive heart failure clinically and by chest x-ray. Medications reviewed. Management plan discussed with the attending physician. Her Coumadin dosage has been adjusted. Medical decision making is of high complexity. 40 minutes spent on this patient with more than 50% of time spent in direct patient care. We will follow with you.
[2018-05-17] MEDS: AMIODARONE HCL 200 MG TABLET PO SCH (21:41)
[2018-05-17] MEDS: ATORVASTATIN CALCIUM 20 MG TABLET PO SCH (21:41)
[2018-05-17] MEDS ORDERED: WARFARIN SODIUM 1 MG TABLET PO ONE (22:00)
[2018-05-18 04:52] LABS: HEMATOCRIT 27.9 % (36.0-47.0); MEAN CORPUSCULAR HEMOGLOBIN 32.5 pg (27.0-33.4); MEAN CORPUSCULAR HGB CONC 32.4 g/dL (32.0-36.0); MEAN CORPUSCULAR VOLUME 100 fl (80-97); PLATELET COUNT 239 10^3/uL (150-450); RED BLOOD COUNT 2.78 10^6/uL (3.72-5.28); RED CELL DISTRIBUTION WIDTH 18.5 % (11.5-14.0); WHITE BLOOD COUNT 4.3 10^3/uL (4.0-10.5)
[2018-05-18] MEDS ORDERED: EPOETIN ALFA INJ 20000 UNIT/1 ML VIAL (RENAL) IV PRN (05:00)
[2018-05-18 05:13] LABS: INTERNATIONAL RATION (INR) 5.26; PROTHROMBIN TIME 50.6 SEC (11.4-15.4)
[2018-05-18 05:15] LABS: ABSOLUTE LYMPHOCYTES# (MANUAL) 0.6 10^3/uL (0.5-4.7); ABSOLUTE MONOCYTES # (MANUAL) 0.3 10^3/uL (0.1-1.4); ABSOLUTE NEUTROPHILS# (MANUAL) 3.1 10^3/uL (1.7-8.2); BASOPHILS % (MANUAL) 1 % (0-2); EOSINOPHILS % (MANUAL) 8 % (0-6); LYMPHOCYTES % (MANUAL) 14 % (13-45); MONOCYTES % (MANUAL) 6 % (3-13); SEGMENTED NEUTROPHILS % (MAN) 71 % (42-78); TOTAL CELLS COUNTED 100
[2018-05-18 05:16] LABS: ALANINE AMINOTRANSFERASE 12 U/L (9-52); ALBUMIN 3.6 g/dL (3.5-5.0); ALKALINE PHOSPHATASE 144 U/L (38-126); ANION GAP 14 (5-19); ASPARTATE AMINO TRANSFERASE 22 U/L (14-36); BILIRUBIN,DIRECT 0.5 mg/dL (0.0-0.4); BILIRUBIN,TOTAL 0.6 mg/dL (0.2-1.3); BLOOD UREA NITROGEN 55 mg/dL (7-20); CALCIUM 8.1 mg/dL (8.4-10.2); CARBON DIOXIDE 26 mmol/L (22-30); CHLORIDE 92 mmol/L (98-107); GLUCOSE 88 mg/dL (75-110); POTASSIUM 5.4 mmol/L (3.6-5.0); SODIUM 132.3 mmol/L (137-145); TOTAL PROTEIN 7.2 g/dL (6.3-8.2)
[2018-05-18 05:21] LABS: ANISOCYTOSIS 2+; BURR CELLS SLIGHT; HELMET CELLS SLIGHT; OVALOCYTES 1+; PLATELET COMMENT ADEQUATE; POIKILOCYTOSIS 2+; TARGET CELLS 1+; TEAR DROP CELLS 1+
[2018-05-18] MEDS: LANSOPRAZOLE 30 MG TAB.RAP.DR PO SCH ×2 (06:16→17:57)
--- NOTE | 2018-05-18 08:59 | PDOC PROGRESS REPORT ---
Subjective Progress Note for:: 05/18/18 Subjective:: 77-year-old female past medical history of hypotension my daughter and dependent , ESRD on HD TTS, A. fib, CHF, CAD, hyperlipidemia, aortic and mitral valve replacement, COPD, pleural effusion history of previous thoracentesis. She also has a history of noncompliance due to poor social support and memory problem. Patient presented to ED on 05/11/2018 complaining of shortness of breath after missing her hemodialysis on Friday. She will also have an issue of excessive volume overload without the ability to remove enough fluid due to underlying low blood pressure. In ED she was found to have volume overload with hyperkalemia without any EKG changes, hypotension and tachycardia. Nephrology was consulted and patient is a status post hemodialysis with 2 L fluid removal. 05/12/2018. No acute events overnight. On my encounter patient is laying in her bed with the head elevated not in any apparent distress. Patient is alert oriented and very pleasant and cooperative with physical and history. Patient denies any fever, chills, nausea, vomiting, diarrhea, shortness of breath, chest pain or any urinary symptoms. She states that she is living with her and her daughter who is administering her medications. I talked with her daughter Dary over the phone who is responsible for administering her medications at home. Based on my conversation with her she is knowledgeable about her mother's medications. She stated that she takes her medication but sometimes she is not compliant with her medications. She stated that she missed her last dose of Coumadin. She used to have home health who would visit her every other week to check her INR however recently the care has been transferred to [facility] where she receives her dialysis. Dr. Branch is her PCP. As per daughter last was 2.6. 05/13/2018. No acute events overnight. Upon my encounter patient is laying in bed does not seem to be in any acute distress. He is alert and oriented and she is very pleasant and cooperative with physical examination. She is scheduled for hemodialysis today. She denies any fever, chills, nausea, vomiting, diarrhea, constipation, chest pain or any urinary symptoms. 05/14/2018. No acute events overnight. Status post hemodialysis on 2017. Patient states she could not get a good night sleep but does not specify why. She denies any pain. She is p.o. tolerant and tolerating her medications. She is only complaining of dyspnea on exertion otherwise she is denying any chest pain, fever, chills, nausea, vomiting, diarrhea, constipation or any urinary symptoms. 05/15/2018. No acute events overnight. Patient is status post hemodialysis. After patient came back from hemodialysis was complaining of pressure-like chest pain. Stat EKG was done which did not show any acute changes compared to previous EKG. First set of troponin was 0.04. Patient was given some morphine and aspirin which subsided her chest pain. I rounded on patient several times during the day my last encounter she stated that her chest pain has resolved. Patient is p.o. tolerant and ambulating. She denies any fever, chills, shortness of breath, nausea, vomiting, diarrhea, constipation or any urinary symptoms. 05/16/2018. Patient has been having on and off chest pain throughout the day. Dr. Unger her vacuum bottle assembler is aware and has been following. Patient was started on amiodarone drip by cardiology yesterday and her heart rate has been better controlled. In the afternoon patient was having shortness of breath and an ABG was done which showed hypoxemia. Concern was raised for possible PE unfortunately patient is a hemodialysis patient and radiology refused to do CTA because she will not be receiving hemodialysis until Friday. VQ scan is pending. Meanwhile patient has been started on BiPAP with low threshold to be transferred to ICU. Her cardiac enzymes have been negative. 05/17/2018. No acute events overnight. Chest pain has resolved and patient is not short of breath anymore. On my encounter she is comfortably resting in bed with nasal cannula. She denies any fever, chest pain, shortness of breath, diarrhea, was patient or any urinary symptoms. 05/17/2018. No acute events overnight. Resting comfortably in her bed very pleasant and cooperative with physical examination. She has not had any recurrence of chest pain or shortness of breath or palpitation. Patient denies any fever, chills, nausea, vomiting, diarrhea, constipation or any urinary symptoms. Reason For Visit: VOLUME OVERLOAD Physical Exam Vital Signs: Temp Pulse Resp BP Pulse Ox 98.1 F 107 H 24 H 130/83 H 96 05/18/18 07:23 05/18/18 07:23 05/18/18 07:23 05/18/18 07:23 05/18/18 07:23 Intake & Output 05/17/18 05/18/18 05/19/18 06:59 06:59 06:59 Intake Total 755 362 Output Total 0 0 Balance 755 362 Weight 69.1 kg 69.8 kg General appearance: PRESENT: no acute distress, well-developed, well-nourished Cardiovascular exam: PRESENT: RRR, tachycardia, other - Mechanical heart sound. Tenderness over left lateral aspect of sternum.. ABSENT: diastolic murmur, rubs, systolic murmur GI/Abdominal exam: PRESENT: normal bowel sounds, soft. ABSENT: distended, guarding, mass, organolmegaly, rebound, tenderness Results Laboratory Results: 05/18/18 04:25 05/18/18 04:25 05/18/18 05/18/18 04:25 04:25 WBC 4.3 RBC 2.78 L Hgb 9.0 L Hct 27.9 L MCV 100 H MCH 32.5 MCHC 32.4 RDW 18.5 H Plt Count 239 Seg Neutrophils % Not Reportable Lymphocytes % Not Reportable Monocytes % Not Reportable Eosinophils % Not Reportable Basophils % Not Reportable Absolute Neutrophils Not Reportable Absolute Lymphocytes Not Reportable Absolute Monocytes Not Reportable Absolute Eosinophils Not Reportable Absolute Basophils Not Reportable Sodium 132.3 L Potassium 5.4 H Chloride 92 L Carbon Dioxide 26 Anion Gap 14 BUN 55 H Creatinine 7.26 H Est GFR ( Amer) 7 L Est GFR (Non-Af Amer) 5 L Glucose 88 Calcium 8.1 L Total Bilirubin 0.6 AST 22 ALT 12 Alkaline Phosphatase 144 H Total Protein 7.2 Albumin 3.6 05/15/18 05/15/18 05/15/18 13:42 13:42 18:55 Creatine Kinase 36 33 CK-MB (CK-2) 1.48 Troponin I 0.040 05/15/18 05/16/18 05/16/18 18:55 01:16 01:16 Creatine Kinase 23 L CK-MB (CK-2) 1.49 1.49 Troponin I 0.043 0.040 Impressions: Chest X-Ray 05/16/18 00:00 IMPRESSION: Stable radiographic appearance of the chest, again demonstrating right lower lung consolidation with layering pleural effusion. Lung Scan-VQ NM 05/16/18 00:00 IMPRESSION: Limited examination. No segmental or wedge-shaped perfusion defects. Venous Doppler Study 05/16/18 00:00 IMPRESSION: No DVT is identified in the bilateral lower extremities. Assessment & Plan - Diagnosis (1) Atrial fibrillation Qualifiers: Atrial fibrillation type: chronic Qualified Code(s): I48.2 - Chronic atrial fibrillation Is this a current diagnosis for this admission?: Yes Plan: [id number] 4. Better controlled. Cardizem drip stopped. Switched to p.o. amiodarone and Cardizem yesterday. Supratherapeutic INR today. Hold warfarin monitor for any signs of bleeding. INR tomorrow if therapeutic and rate controlled can be discharged home. As per cardiology note on 11/03/2017 patient was referred to [facility] for possible placement of pacemaker and ablation however she was declined. (2) Acute hypoxemic respiratory failure Is this a current diagnosis for this admission?: Yes Plan: Improved. Saturating 96% on bradycardia. .VQ scan and bilateral lower extremity ultrasound negative for any PE. Chest x-ray did not show any acute changes, ABG was positive for hypoxia and hypercarbia. CTA was ordered however radiology refused to do the CTA because of the fact that patient is a hemodialysis patient and she will not be getting hemodialysis until Friday. (3) Chest pain Qualifiers: Chest pain type: intercostal pain Qualified Code(s): R07.82 - Intercostal pain Is this a current diagnosis for this admission?: Yes Plan: Unlikely cardiac, most likely musculoskeletal. Reproducible. Tenderness palpation over left lateral aspect of sternum. Continue supportive measures. EKG negative for any acute changes. Initial troponin 0.04. Continue aspirin (4) End stage renal failure on dialysis Is this a current diagnosis for this admission?: No Plan: Patient has poly-electrolyte abnormalities today. Hemodialysis today. On hemodialysis Friday and Friday as outpatient. Monitor volume status , fluid restrictions, renal diet. Nephrology following. (5) Volume overload Is this a current diagnosis for this admission?: Yes Plan: Euvolemic now. Due to underlying end-stage renal disease, CHF. On hemodialysis TTS. Hemodialysis today. (6) Anemia in chronic kidney disease Qualifiers: Chronic kidney disease stage: on chronic dialysis Qualified Code(s): N18.6 - End stage renal disease; D63.1 - Anemia in chronic kidney disease; D63.1 - Anemia in chronic kidney disease; Z99.2 - Dependence on renal dialysis; Z99.2 - Dependence on renal dialysis; Z99.2 - Dependence on renal dialysis; Z99.2 - Dependence on renal dialysis Is this a current diagnosis for this admission?: No Plan: H&H stable. Epogen on dialysis days. Continue ferrous sulfate. (7) Hypotension Is this a current diagnosis for this admission?: Yes Plan: Resolved. Patient actually is hypertensive and will hold Midodrine and start when clinically appropriate. (8) COPD (chronic obstructive pulmonary disease) Qualifiers: COPD type: unspecified COPD Qualified Code(s): J44.9 - Chronic obstructive pulmonary disease, unspecified Is this a current diagnosis for this admission?: No Plan: Stable. Unlikely unlikely she is on COPD patient. Shortness of breath have improved may have been due to volume overload due to underlying end-stage renal disease. Continue nebs as needed. (9) Congestive heart failure Is this a current diagnosis for this admission?: No Plan: Combined systolic and diastolic dysfunction. Echo on 05/12/2018 ejection fraction is 45-50%. Echo on 09/2017 normal ejection fraction with moderate diastolic failure. Status post hemodialysis on 05/11/2018. 2 L removed. Monitor vital status and volume status. Continue cardiac diet and fluid restrictions. (10) Mechanical heart valve present Is this a current diagnosis for this admission?: No Plan: Supratherapeutic INR. No sign of bleeding. Hold warfarin today. INR tomorrow. Echo from 05/13/2018 shows restenosis of the prosthetic aortic valve with peak gradient of 40 mmHg with no regurgitation and mechanical mitral valve no restenosis with trace mitral regurgitation. Cardiology following. Recommendation for INR was between 2.5-3.5. INR tomorrow. Notes. As per cardiology consult on 11/13/2017 anticoagulation was deferred to insurance risk surveyor as patient is end-stage renal disease and on hemodialysis. (11) Pulmonary hypertension, moderate to severe Is this a current diagnosis for this admission?: No Plan: 2D echo from 05/13/2018 suggestive of severe pulmonary hypertension. RVSP is 79 -78 mmHg. With mean RA of 15-20. Pending pulmonary recommendation.
--- NOTE | 2018-05-18 09:33 | RADIOLOGY REPORT (SQ) ---
EXAM DESCRIPTION: CHEST SINGLE VIEW COMPLETED DATE/TIME: 05/18/2018 9:26 am REASON FOR STUDY: RLL Consolidation COMPARISON: 05/16/2018 NUMBER OF VIEWS: One view. TECHNIQUE: Single frontal radiographic image of the chest acquired. LIMITATIONS: None. FINDINGS: LUNGS AND PLEURA: Stable appearance. MEDIASTINUM AND HILAR STRUCTURES: Stable heart size and mediastinal structures. HEART AND VASCULAR STRUCTURES: Stable appearance. BONES: No acute findings. HARDWARE: Unchanged. OTHER: No other significant finding. IMPRESSION: STABLE APPEARANCE OF THE CHEST. TECHNICAL DOCUMENTATION: JOB ID: [id number] [employer]- All Rights Reserved Reading location - IP/workstation name: [email or web address]
[2018-05-18] MEDS: ASPIRIN 81 MG TABLET, ENT COATED PO SCH (10:59)
[2018-05-18] MEDS: ESCITALOPRAM OXALATE 10 MG TABLET PO SCH (10:59)
[2018-05-18] MEDS: FERROUS SULFATE 325 MG TABLET PO SCH ×3 (10:59→17:57)
[2018-05-18] MEDS: AMIODARONE HCL 200 MG TABLET PO SCH ×2 (10:59→21:39)
[2018-05-18] MEDS: DILTIAZEM HCL 120 MG CAP.SR.24H PO SCH ×2 (10:59→21:38)
[2018-05-18] MEDS: FOLIC ACID 1 MG TABLET PO SCH (10:59)
[2018-05-18] MEDS ORDERED: DIGOXIN INJ 0.5 MG/2 ML AMPULE IV ONE (12:00)
--- NOTE | 2018-05-18 20:14 | Progress Note ---
Provider Note Provider Note: Cardiology PROGRESS NOTE by Dr. Elizabeth Unger on 05/18/2018. Subjective: The patient has no further chest pain or chest wall pain. There is no PND orthopnea. There is no shortness of breath. The patient continues to be in atrial fibrillation, at present ventricular response is much improved. There is no TIA CVA symptoms. Note her INR is 5.29, hence her Coumadin will be held. Note her blood pressure is much improved, and as the patient also in addition to amiodarone has been started on Cardizem CD 120 mg p.o. every 12 hours. There is no leg edema. The patient later will undergo hemodialysis later on today. Physical EXAMINATION: The patient appears to be chronically ill, but in no acute distress. She is well-groomed. Selected Entries 05/18/18 11:42 Temperature 98.1 F Temperature Oral Source Pulse Rate 105 H Respiratory 22 H Rate Blood Pressure 131/56 H Blood Pressure 81 Mean BP Location Right Arm BP Position Sitting O2 Sat by Pulse 100 Oximetry Oxygen Flow 6.00 Rate Oxygen Delivery Nasal Cannula Method HEAD: Is atraumatic normocephalic. EYES: Pupils are equal round regular reactive to light and accommodation. Extraocular movements are normal. There is no clinical pallor. ENT: Is negative. Neck is supple there is no JVD. There is transmitted aortic stenosis murmur over both carotids. Has mild carotid delay. There is no lymphadenopathy. There is no JVD. There is no carotid bruits. There is no lymphadenopathy trachea central LUNGS: There is diminished air entry and prolonged expiration throughout. There is chest wall tenderness on palpation. On percussion there is hyperresonance except for the area of dullness in the right lower lobe, where there is also absent breath sounds.. HEART: S1-S2 is heard. S1 is of variable intensity. Prosthetic crisp clicks of the mitral and aortic valve heard well. There is murmur of aortic stenosis present there is no aortic regurgitation murmur. There is no mitral regurgitation murmur. There is no rub there is no S3 or S4 gallops. ABDOMEN: Is soft nontender there is no hepatosplenomegaly. Bowel sounds well heard. EXTREMITIES: Femorals are diminished. There is no femoral bruits. Leg pulses are diminished. There is no pedal edema. There is no DVT S cellulitis. There is no sinus or clubbing. There is no calf tenderness. [employer] PROGRAM REPRESENTATIVE: Patient is conscious awake at present seems to be oriented x3 with no focal deficit. PSYCHIATRIC: The patient judgment insight and insight at this time appear to be intact. The patient is not agitated. 05/18/18 05/18/18 04:25 04:25 WBC 4.3 Hgb 9.0 L Hct 27.9 L Plt Count 239 Sodium 132.3 L Potassium 5.4 H Chloride 92 L Carbon Dioxide 26 BUN 55 H Creatinine 7.26 H Est GFR ( Amer) 7 L Glucose 88 Calcium 8.1 L Total Bilirubin 0.6 Direct Bilirubin 0.5 H Neonat Total Bilirubin Not Reportable Neonat Direct Bilirubin Not Reportable Neonat Indirect Bili Not Reportable AST 22 ALT 12 Alkaline Phosphatase 144 H Total Protein 7.2 Albumin 3.6 IMPRESSION/RECOMMENDATION: 1. Atrial fibrillation with fast ventricular response. At present the patient is in atrial fibrillation with a ventricular response in the 90s, hence much better controlled.. This is with the patient being on amiodarone bolus and infusion at 0.5 mL/min. Per minute. The patient's IV amiodarone infusion and start the patient on amiodarone 400 mg p.o. every 12 hours. Patient also has been started on Cardizem CD 120 mg p.o. every 12 hours. This is brought the heart rate down. Note the patient's INR is supratherapeutic. Hence will hold the Coumadin tonight and recheck PT/INR tomorrow.. 2. Prosthetic [place] aortic valve replacement and mitral valve replacement. There is moderate restenosis of the aortic valve. Also the patient is INR is no above therapeutic goal. We will decrease the dose of Midrin tonight and recheck the patient's INR, and then set up a regimen of Coumadin for the patient 3. Severe tricuspid regurgitation: We will see if Cardizem will help this. We will get records from [facility] a month since the patient a few months ago was sent there for possible tricuspid valve annuloplasty. Still awaiting records from [facility]. As per the he states that [facility] stated that they could not do anything for her tricuspid valve regurgitation. 4. Severe pulmonary hypertension. 5. Past history of hypertension. At present blood pressure low requiring Midodrine to be able to give medicines that can cause the blood pressure to go down. 6. End-stage renal disease: Continue hemodialysis. 7. EARLY DEMENTIA: At present patient seems to be doing fairly well. 8. COPD: No acute exacerbation. 4. Severe pulmonary hypertension. 5. Past history of hypertension. At present blood pressure low requiring Midrin to be able to give medicines that can cause the blood pressure to go down. 6. End-stage renal disease: Continue hemodialysis. 7. EARLY DEMENTIA: At present patient seems to be doing fairly well. 8. COPD: No acute exacerbation. 9. CHEST WALL PAIN: This is reproducible, and not anginal. Recommend analgesics. 10. Possible right lower lobe pneumonia, with consolidation and effusion. Consider antibiotics. Patient denies any cough or sputum production. The patient is not febrile. Hence will check repeat chest x-ray in the morning. There is no evidence of congestive heart failure clinically and by chest x-ray. Medications reviewed. Medications added management plan discussed with the attending physician. Her Coumadin dosage has been adjusted. Note cardiac status is stable. Hence will sign off and follow the patient in the office as an outpatient. Medical decision making is of high complexity. Later we will decrease the patient's amiodarone. Also as an outpatient will get a pulmonary function test with DLCO, and periodic liver and thyroid function tests. 40 minutes spent on this patient with more than 50% of time spent in direct patient care. If patient continues to be stable can be discharged tomorrow. Please call me if any further cardiac issues arises. Thank you for allowing me to participate in this care of this patient.
[2018-05-18] MEDS: ATORVASTATIN CALCIUM 20 MG TABLET PO SCH (21:39)
[2018-05-18] MEDS: LORAZEPAM 1 MG TABLET PO PRN (21:39)
[2018-05-19] MEDS: LANSOPRAZOLE 30 MG TAB.RAP.DR PO SCH (05:23)
[2018-05-19 06:18] LABS: INTERNATIONAL RATION (INR) 3.27; PROTHROMBIN TIME 34.8 SEC (11.4-15.4)
[2018-05-19 06:20] LABS: HEMATOCRIT 24.4 % (36.0-47.0); HEMOGLOBIN 8.2 g/dL (12.0-15.5); MEAN CORPUSCULAR HEMOGLOBIN 33.1 pg (27.0-33.4); MEAN CORPUSCULAR HGB CONC 33.5 g/dL (32.0-36.0); MEAN CORPUSCULAR VOLUME 99 fl (80-97); PLATELET COUNT 240 10^3/uL (150-450); RED BLOOD COUNT 2.47 10^6/uL (3.72-5.28); RED CELL DISTRIBUTION WIDTH 18.3 % (11.5-14.0); WHITE BLOOD COUNT 4.8 10^3/uL (4.0-10.5)
[2018-05-19 06:31] LABS: ALANINE AMINOTRANSFERASE 15 U/L (9-52); ALBUMIN 3.5 g/dL (3.5-5.0); ALKALINE PHOSPHATASE 131 U/L (38-126); ANION GAP 11 (5-19); ASPARTATE AMINO TRANSFERASE 21 U/L (14-36); BILIRUBIN,DIRECT 0.3 mg/dL (0.0-0.4); BILIRUBIN,TOTAL 0.4 mg/dL (0.2-1.3); BLOOD UREA NITROGEN 43 mg/dL (7-20); CALCIUM 8.2 mg/dL (8.4-10.2); CARBON DIOXIDE 29 mmol/L (22-30); CHLORIDE 96 mmol/L (98-107); GLUCOSE 95 mg/dL (75-110); POTASSIUM 4.7 mmol/L (3.6-5.0); TOTAL PROTEIN 6.9 g/dL (6.3-8.2)
[2018-05-19 06:51] LABS: ABSOLUTE MONOCYTES # (MANUAL) 0.4 10^3/uL (0.1-1.4); ABSOLUTE NEUTROPHILS# (MANUAL) 3.4 10^3/uL (1.7-8.2); BASOPHILS % (MANUAL) 1 % (0-2); EOSINOPHILS % (MANUAL) 0 % (0-6); LYMPHOCYTES % (MANUAL) 20 % (13-45); MONOCYTES % (MANUAL) 9 % (3-13); SEGMENTED NEUTROPHILS % (MAN) 70 % (42-78); TOTAL CELLS COUNTED 100
[2018-05-19 06:53] LABS: ANISOCYTOSIS 2+; HYPOCHROMASIA SLIGHT; OVALOCYTES SLIGHT; POIKILOCYTOSIS 1+; SCHISTOCYTES SLIGHT; TARGET CELLS SLIGHT
[2018-05-19 06:54] LABS: PLATELET COMMENT ADEQUATE
--- NOTE | 2018-05-19 09:49 | PDOC DISCHARGE SUMMARY ---
General - Admit/Disc Date/PCP Admission Date/Primary Care Provider: 05/11/18 04:38 K Petros BRO MD Discharge Date: 05/19/18 - Discharge Diagnosis (1) End stage renal failure on dialysis Is this a current diagnosis for this admission?: Yes (2) Fluid overload Is this a current diagnosis for this admission?: Yes - Additional Information Resuscitation Status: Full Code Discharge Diet: Cardiac Discharge Activity: Activity As Tolerated, Balance Activity w/Rest, Weigh Daily Prescriptions: Amiodarone HCl [Cordarone 200 mg Tablet] 400 mg PO Q12 #120 tablet Aspirin [Ecotrin 81 mg EC Tablet] 81 mg PO DAILY #30 tabec Digoxin [Lanoxin 0.125 mg Tablet] 0.125 mg PO Q3D #30 tablet Diltiazem HCl [Cardizem Cd 120 mg Capsule] 120 mg PO Q12 #60 cap.sr.24h Home Medications: Atorvastatin Calcium [Lipitor 20 mg Tablet] 20 mg PO QHS 05/11/18 Escitalopram Oxalate [Lexapro] 20 mg PO DAILY 05/11/18 Ferrous Sulfate [Feosol 325 mg Tablet] 325 mg PO TID 05/11/18 Folic Acid [Folvite 1 mg Tablet] 1 mg PO DAILY 05/11/18 Metolazone [Zaroxolyn 5 mg Tablet] 5 mg PO BID 05/11/18 Midodrine HCl 10 mg PO TID 05/11/18 Pantoprazole Sodium [Protonix] 40 mg PO BID 05/11/18 Warfarin Sodium 7.5 mg PO TUTH@1000 05/11/18 Warfarin Sodium [Coumadin 7.5 mg Tablet] 7.5 mg PO SUMOWEFRSA@1000 05/11/18 Amiodarone HCl [Cordarone 200 mg Tablet] 400 mg PO Q12 #120 tablet 05/19/18 Aspirin [Ecotrin 81 mg EC Tablet] 81 mg PO DAILY #30 tabec 05/19/18 Digoxin [Lanoxin 0.125 mg Tablet] 0.125 mg PO Q3D #30 tablet 05/19/18 Diltiazem HCl [Cardizem Cd 120 mg Capsule] 120 mg PO Q12 #60 cap.sr.24h Lorazepam [Ativan 1 mg Tablet] 1 mg PO Q6 PRN #0 05/19/18 History of Present Illness History of Present Illness: TAMMY BUCKLEY is a 77 year old female with a past medical history of midodrine dependent hypotension, end-stage renal failure hemodialysis dependent Friday. Patient presents with shortness of breath after missing hemodialysis on Friday. She denies fever chills nausea vomiting cough or chest pain. In the emergency room she is found to have volume overload , hyperkalemia without peak T waves, hypotension and tachycardia. Hospital Course Hospital Course: Ms. Buckley is a 77 yr old female with ESRD on dialysis, atrial fibrillation on coumadin who was admitted for volume overload and hyperkalemia after missing her hemodiaysis the Friday prior to admission. She was initially in respiratory distress and was confused s ell. She was placed on BIPAP upon dmission to the ICU. Her symptoms significantly resolve after she got her dialysis. Her hospital stay was prolonged as she was going in and out of atrial fibrillation with episodes of hypotension. Cardiology was consulted. Her regimen was adjuted. Optimal heart rate control was finally achieved with PO amiodaorne and cardizem. Cardio also recommended adjusting her Lanoxin to 0.125 every 3 days. A few doses of her coumadin were held as her INR also became supratherapeutic (5.26). This did came back to 3 and her coumadin was decreased to 7.5 mg daily per after discussion with cardio. Patient has prior hospitalizations and has a history of medical noncompliance and a few missed dialysis in the pat. She was previosuly recommended to be discharged to rehab/SNF but patient was strongly against this. This was discussed again in length with patient's daughter, son and . Patient's daughter is able to take care of patient at home and has been taking responsible for her medications. Daughter does say that there are times when patient just does not take her medications. When asked why she missed the recent dialysis, patient says she did not feel great last week and did not feel like going for the dialysis. There is a possibility she may have beginning signs of dementia as she does have occasional memory issues. However, she is currently well oriented, coherent and able to reason well and is deemed competent on this admission. She insisted on going home. Importance of compliance to medications and dialysis was again emphasized and she verbalized understanding. She will follow up with nephro for her next dialysis and will have another repeat INR during her next dialysis. Physical Exam Vital Signs: Temp Pulse Resp BP Pulse Ox 98.5 F 108 H 21 H 116/55 L 100 05/19/18 07:32 05/19/18 07:32 05/19/18 07:32 05/19/18 07:32 05/19/18 07:32 Intake & Output 05/18/18 05/19/18 05/20/18 06:59 06:59 06:59 Intake Total 362 614 Output Total 0 3400 Balance 362 -2786 Weight 153 lb 14.122 oz 150 lb 5.684 oz General appearance: PRESENT: no acute distress, well-developed, well-nourished Head exam: PRESENT: atraumatic, normocephalic Eye exam: PRESENT: conjunctiva pink, EOMI, PERRLA. ABSENT: scleral icterus Ear exam: PRESENT: normal external ear exam Mouth exam: PRESENT: moist, tongue midline Neck exam: ABSENT: carotid bruit, JVD, lymphadenopathy, thyromegaly Respiratory exam: PRESENT: clear to auscultation kee. ABSENT: rales, rhonchi, wheezes Cardiovascular exam: PRESENT: irregular rhythm Pulses: PRESENT: normal dorsalis pedis pul Rectal exam: PRESENT: deferred Neurological exam: PRESENT: alert, awake, oriented to person, oriented to place , oriented to time, oriented to situation Results Laboratory Results: 05/19/18 05:51 05/19/18 05:51 05/19/18 05/19/18 05:51 05:51 WBC 4.8 RBC 2.47 L Hgb 8.2 L Hct 24.4 L MCV 99 H MCH 33.1 MCHC 33.5 RDW 18.3 H Plt Count 240 Seg Neutrophils % Not Reportable Lymphocytes % Not Reportable Monocytes % Not Reportable Eosinophils % Not Reportable Basophils % Not Reportable Absolute Neutrophils Not Reportable Absolute Lymphocytes Not Reportable Absolute Monocytes Not Reportable Absolute Eosinophils Not Reportable Absolute Basophils Not Reportable Sodium 136.0 L Potassium 4.7 Chloride 96 L Carbon Dioxide 29 Anion Gap 11 BUN 43 H Creatinine 5.01 H Est GFR ( Amer) 10 L Est GFR (Non-Af Amer) 8 L Glucose 95 Calcium 8.2 L Total Bilirubin 0.4 AST 21 ALT 15 Alkaline Phosphatase 131 H Total Protein 6.9 Albumin 3.5 10/19/18 10/19/18 10/19/18 13:42 13:42 18:55 Creatine Kinase 36 33 CK-MB (CK-2) 1.48 Troponin I 0.040 05/15/18 05/16/18 05/16/18 18:55 01:16 01:16 Creatine Kinase 23 L CK-MB (CK-2) 1.49 1.49 Troponin I 0.043 0.040 Impressions: Lung Scan-VQ NM 05/16/18 00:00 IMPRESSION: Limited examination. No segmental or wedge-shaped perfusion defects. Venous Doppler Study 05/16/18 00:00 IMPRESSION: No DVT is identified in the bilateral lower extremities. Chest X-Ray 05/18/18 06:00 IMPRESSION: STABLE APPEARANCE OF THE CHEST. Qualifiers - * PATIENT BEING DISCHARGED WITH ANY OF THE FOLLOWING DIAGNOSIS: No
[2018-05-19] MEDS: FOLIC ACID 1 MG TABLET PO SCH (09:57)
[2018-05-19] MEDS: ESCITALOPRAM OXALATE 10 MG TABLET PO SCH (09:57)
[2018-05-19] MEDS: AMIODARONE HCL 200 MG TABLET PO SCH (09:58)
[2018-05-19] MEDS: DILTIAZEM HCL 120 MG CAP.SR.24H PO SCH (09:58)
[2018-05-19] MEDS: FERROUS SULFATE 325 MG TABLET PO SCH ×2 (09:59→14:37)
[2018-05-19] MEDS: ASPIRIN 81 MG TABLET, ENT COATED PO SCH (09:59)
[2018-05-19 14:31] VITALS: BP 97/46
[2018-05-19] MEDS ORDERED: WARFARIN SODIUM 4 MG TABLET PO SCH (22:00)
--- NOTE | 2018-05-20 07:52 | PDOC PROGRESS REPORT ---
Subjective Progress Note for:: 05/18/18 Reason For Visit: Seen on dialysis.has improved dyspnea on exertion and denies orthopnea, chest pains.She is still in Afib Labs and medications were reviewed Physical Exam Vital Signs: Temp Pulse Resp BP Pulse Ox 98.1 F 105 H 22 H 131/56 H 100 05/18/18 11:42 05/18/18 11:42 05/18/18 11:42 05/18/18 11:42 05/18/18 11:42 Intake & Output 05/17/18 05/18/18 05/19/18 06:59 06:59 06:59 Intake Total 755 362 277 Output Total 0 0 Balance 755 362 277 Weight 69.1 kg 69.8 kg General appearance: PRESENT: no acute distress Respiratory exam: PRESENT: clear to auscultation kee. ABSENT: crackles Cardiovascular exam: PRESENT: irregular rhythm, +S1, +S2 GI/Abdominal exam: PRESENT: soft. ABSENT: organomegaly, tenderness Extremities exam: PRESENT: pedal edema Neurological exam: PRESENT: alert, awake, oriented to person Skin exam: ABSENT: erythema, rash Results Laboratory Results: 05/18/18 04:25 05/18/18 04:25 05/18/18 05/18/18 04:25 04:25 WBC 4.3 RBC 2.78 L Hgb 9.0 L Hct 27.9 L MCV 100 H MCH 32.5 MCHC 32.4 RDW 18.5 H Plt Count 239 Seg Neutrophils % Not Reportable Lymphocytes % Not Reportable Monocytes % Not Reportable Eosinophils % Not Reportable Basophils % Not Reportable Absolute Neutrophils Not Reportable Absolute Lymphocytes Not Reportable Absolute Monocytes Not Reportable Absolute Eosinophils Not Reportable Absolute Basophils Not Reportable Sodium 132.3 L Potassium 5.4 H Chloride 92 L Carbon Dioxide 26 Anion Gap 14 BUN 55 H Creatinine 7.26 H Est GFR ( Amer) 7 L Est GFR (Non-Af Amer) 5 L Glucose 88 Calcium 8.1 L Total Bilirubin 0.6 AST 22 ALT 12 Alkaline Phosphatase 144 H Total Protein 7.2 Albumin 3.6 05/15/18 05/15/18 05/15/18 13:42 13:42 18:55 Creatine Kinase 36 33 CK-MB (CK-2) 1.48 Troponin I 0.040 05/15/18 05/16/18 05/16/18 18:55 01:16 01:16 Creatine Kinase 23 L CK-MB (CK-2) 1.49 1.49 Troponin I 0.043 0.040 Impressions: Lung Scan-VQ NM 05/16/18 00:00 IMPRESSION: Limited examination. No segmental or wedge-shaped perfusion defects. Venous Doppler Study 05/16/18 00:00 IMPRESSION: No DVT is identified in the bilateral lower extremities. Chest X-Ray 05/18/18 06:00 IMPRESSION: STABLE APPEARANCE OF THE CHEST. Assessment & Plan - Diagnosis (1) End stage renal failure on dialysis Is this a current diagnosis for this admission?: No Plan: seen on dialysis Undergoing dialysis without isssues. Orders were reviewed with treating RN plan to remove 2-3 L as tolerated (2) Hyperkalemia Is this a current diagnosis for this admission?: Yes Plan: Should respond to dialysis (3) Hypotension Qualifiers: Hypotension type: unspecified hypotension type Qualified Code(s): I95.9 - Hypotension, unspecified Is this a current diagnosis for this admission?: No Plan: Stable Off midodrine (4) Acute on chronic combined systolic and diastolic CHF (congestive heart failure) Plan: Stable now. (5) A-fib Plan: as per cardiology (6) COPD (chronic obstructive pulmonary disease) Qualifiers: COPD type: unspecified COPD Qualified Code(s): J44.9 - Chronic obstructive pulmonary disease, unspecified Is this a current diagnosis for this admission?: No Plan: Stable (7) H/O prosthetic mitral valve Plan: On anticoagulation (8) Pulmonary hypertension, moderate to severe Is this a current diagnosis for this admission?: No Plan: Stable. (9) Anemia in chronic kidney disease Qualifiers: Chronic kidney disease stage: on chronic dialysis Qualified Code(s): N18.6 - End stage renal disease; D63.1 - Anemia in chronic kidney disease; D63.1 - Anemia in chronic kidney disease; Z99.2 - Dependence on renal dialysis; Z99.2 - Dependence on renal dialysis; Z99.2 - Dependence on renal dialysis; Z99.2 - Dependence on renal dialysis Is this a current diagnosis for this admission?: No Plan: Monitor Adjust EPO (10) Dementia Plan: status quo
== END 2018-05-19 16:13 | disposition home or self-care (01) | DRG 291 ==
LOC: ER 02:05 → EH 04:38 → ICU 08:45 → 3W 05-12 18:58
PROVIDERS: ADMIT Internal Medicine; ATTEND Internal Medicine
PROC: 5A1D70Z Performance of Urinary Filtration, Intermittent, Less than 6 Hours Per Day (ICD-10-PCS; principal; 2018-05-11)
PROC: 3E0234Z Introduction of Serum, Toxoid and Vaccine into Muscle, Percutaneous Approach (ICD-10-PCS; 2018-05-19)
DX: I13.2 Hypertensive heart and chronic kidney disease with heart failure and with stage 5 chronic kidney disease, or end stage renal disease (principal); N18.6 End stage renal disease; J96.02 Acute respiratory failure with hypercapnia; J96.01 Acute respiratory failure with hypoxia; J18.9 Pneumonia, unspecified organism; I50.40 Unspecified combined systolic (congestive) and diastolic (congestive) heart failure; E87.5 Hyperkalemia; I95.9 Hypotension, unspecified; I27.20 Pulmonary hypertension, unspecified; Z99.2 Dependence on renal dialysis; I48.2 Chronic atrial fibrillation; E11.22 Type 2 diabetes mellitus with diabetic chronic kidney disease; D63.1 Anemia in chronic kidney disease; J44.9 Chronic obstructive pulmonary disease, unspecified; I07.1 Rheumatic tricuspid insufficiency; F03.90 Unspecified dementia, unspecified severity, without behavioral disturbance, psychotic disturbance, mood disturbance, and anxiety; Z79.01 Long term (current) use of anticoagulants; Z79.899 Other long term (current) drug therapy; Z95.2 Presence of prosthetic heart valve; Z23 Encounter for immunization
CPT/HCPCS: 36415; 36600; 71045; 78582; 80048; 80053; 80162; 82550; 82553; 82803; 82962; 83735; 83880; 84100; 84484; 85025; 85027; 85610; 90686; 93005; 93010; 93306; 93970; 94660; 96374; 99285; A9540; A9567; G8978-GP; G8979-GP; J0282; J1160; J1644; J1940; J2270; J3490; J7060; Q4081; Q9969

== ENCOUNTER 2018-05-21 23:44 | Emergency (ER) | payer MEDICARE ==
[2018-05-21] MEDS ORDERED: ASPIRIN 81 MG TABLET, CHEWABLE PO ONE (23:49)
--- NOTE | 2018-05-22 00:02 | ER Document Report ---
ED General - General Stated Complaint: CHEST PAIN Time Seen by Provider: 05/21/18 23:48 Mode of Arrival: Medic Information source: Patient, Emergency Med Personnel Notes: 77-year-old female brought to the emergency department by EMS with complaints of left-sided pain that started prior to arrival. Patient has a history of renal failure, CHF, A fib, midodrine dependent hypotension. Patient states that the pain is located in the left chest, left upper quadrant, left lower quadrant. She states that the pain starts in the left lower quadrant and goes up into the chest. Patient denies any alleviating or exacerbating factors. Patient is a poor historian and unable to provide any history. Patient was recently discharged from the hospital. TRAVEL OUTSIDE OF THE [place] IN LAST 30 DAYS: No - HPI Onset: Just prior to arrival Onset/Duration: Sudden Associated symptoms: None Exacerbated by: Denies Relieved by: Denies Similar symptoms previously: No Recently seen / treated by doctor: No - Related Data Allergies/Adverse Reactions: Penicillins Allergy (Severe, Verified 10/20/17 15:33) Swelling of hands and/or feet vancomycin [Vancomycin] Adverse Reaction (Intermediate, Verified 10/20/17 15:33) Swelling of hands and/or feet hydrochlorothiazide [From Dyazide] Adverse Reaction (Verified 10/20/17 15:33) Swelling of hands and/or feet triamterene [From Dyazide] Adverse Reaction (Verified 10/20/17 15:33) Swelling of hands and/or feet Past Medical History - General Information source: Patient, Emergency Med Personnel - Social History Smoking Status: Unknown if Ever Smoked Family History: COPD, DM, Hypertension - Past Medical History Cardiac Medical History: Reports: Hx Atrial Fibrillation, Hx Congestive Heart Failure - Systolic and diastolic, Hx Heart Attack, Hx Hypercholesterolemia, Hx Hypertension, Hx Heart Murmur - Aortic and mitral valve replacement. Denies: Hx Coronary Artery Disease Pulmonary Medical History: Reports: Hx COPD, Hx Pneumonia Denies: Hx Asthma, Hx Bronchitis Neurological Medical History: Denies: Hx Cerebrovascular Accident, Hx Seizures Endocrine Medical History: Reports: Hx Diabetes Mellitus Type 2 Renal/ Medical History: Reports: Hx End Stage Renal Disease, Hx Hemodialysis. Denies: Hx Peritoneal Dialysis - HEMO-DIALYSIS GI Medical History: Reports: Hx Colonoscopy, Hx Endoscopy Musculoskeletal Medical History: Reports Hx Arthritis, Reports Hx Gout Psychiatric Medical History: Reports: Hx Dementia Denies: Hx Depression Past Surgical History: Reports: Hx Cardiac Surgery - artificial valves x2, Hx Hysterectomy, Hx Orthopedic Surgery - Back surgery 2, Hx Valve Replacement - Mitral and aortic valve replacement, mechanical heart valves, Other - EGD, colonoscopy, right IJV PermCath - Immunizations Hx Diphtheria, Pertussis, Tetanus Vaccination: Yes Hx Pneumococcal Vaccination: 07/28/13 Review of Systems - Review of Systems -: Yes ROS unobtainable due to patient's medical condition Physical Exam - Vital signs Vitals: Resp 31 H 05/21/18 23:48 - General Notes: PHYSICAL EXAMINATION: GENERAL: Pleasantly demented. HEAD: Atraumatic. EYES: Pupils equal round and reactive to light, extraocular movements intact, conjunctiva are normal. ENT: Nares patent, oropharynx clear without exudates. Moist mucous membranes. NECK: Normal range of motion, supple without lymphadenopathy LUNGS: Breath sounds clear to auscultation bilaterally and equal. No wheezes rales or rhonchi. HEART: Tachycardic. Atrial fibrillation. Tenderness to palpation of the L chest wall. ABDOMEN: Soft, Tenderness to palpation in the LUQ, LLQ. No rebound or guarding. Female : deferred Musculoskeletal: Normal range of motion, no pitting or edema. No cyanosis. NEUROLOGICAL: Cranial nerves grossly intact. Normal speech, normal gait. Normal sensory, motor exams PSYCH: Normal mood, normal affect. SKIN: Warm, Dry, normal turgor, no rashes or lesions noted. Course - Re-evaluation Re-evalutation: 05/22/18 02:07 Patient has hx of hypotension requiring midodrine. Hypotensive in the ED. Patient's systolic blood pressure is around 87 systolic. 5oo cc bolus ordered. BP still low. Labs obtained. Troponin at baseline. Hemoglobin is 6. Dropped 2 points in 2 days. Stool black on exam. No active bleeding appreciated. Heme occult positive stool. 2 units PRBC ordered. No GI or dialysis bed available. Will need to transfer. Patient also tachycardic. Hx of A fib. On coumadin. INR ordered. Mitchel Olson contacted. I spoke with Dr. Gibson. Dr. Gibson accepts transfer. 05/22/18 02:25 INR 4.96. Discussed INR reversal with Dr. Gibson, accepting at [facility]. He does not want INR reversal. Prefers to hold coumadin and monitor patient. Vitamin K and FFP will not be given. I told him we have a 22 guage IV. I told him I was going to try for central line access as the patient is a GI bleed, hypotensive, and we will be transfusing blood. I updated him about the patient's vital signs. Patient continues to be in a. fib with a rate of 110 and hypotensive. He does not want a central line as this may cause complications with the patient having an elevated INR. He accepts transfer of the patient with a 22 guage IV. Would like blood transfused. 05/22/18 02:30 Patient's contacted the ED for update. He's agreeable with transfer. 05/22/18 04:07 Unable to find EMS to transport patient to [facility] until after 8AM per nurse. Patient is receiving blood products and continues to be hypotensive. Weather check done. Will transport via air. Patient continues to be in a fib and hypotensive. She complains of abdomina pain. Unable to give narcotic pain medication secondary to hypotension. Unable to give oral pain medication if would need to have emergent colonoscopy/endoscopy done. 05/22/18 04:31 Flight arrived. BP 91/44. 05/22/18 04:41 - Vital Signs Vital signs: Temp Pulse Resp BP Pulse Ox 98.4 F 113 H 28 H 91/44 L 97 05/22/18 04:28 05/22/18 04:28 05/22/18 04:28 05/22/18 04:28 05/22/18 04:28 - Laboratory Result Diagrams: 05/22/18 00:02 05/22/18 00:02 Laboratory results interpreted by me: 05/22/18 05/22/18 05/22/18 00:02 00:02 00:02 RBC 1.78 L Hgb 6.0 L D Hct 18.5 L MCV 104 H D MCH 33.5 H RDW 18.6 H Seg Neuts % (Manual) 86 H Lymphocytes % (Manual) 5 L Abs Neuts (Manual) 9.5 H PT APTT Chloride 96 L BUN 37 H Creatinine 3.40 H Est GFR ( Amer) 16 L Est GFR (Non-Af Amer) 13 L Calcium 8.1 L Direct Bilirubin 0.5 H Alkaline Phosphatase 127 H NT-Pro-B Natriuret Pep [id number] H Crossmatch 05/22/18 05/22/18 00:02 01:32 RBC Hgb Hct MCV MCH RDW Seg Neuts % (Manual) Lymphocytes % (Manual) Abs Neuts (Manual) PT 48.4 H APTT 46.7 H Chloride BUN Creatinine Est GFR ( Amer) Est GFR (Non-Af Amer) Calcium Direct Bilirubin Alkaline Phosphatase NT-Pro-B Natriuret Pep Crossmatch See Detail Discharge - Discharge Clinical Impression: Upper GI bleed, End stage renal failure on dialysis, Pleural effusion Atrial fibrillation Qualifiers: Atrial fibrillation type: chronic Qualified Code(s): I48.2 - Chronic atrial fibrillation Hypotension Qualifiers: Hypotension type: unspecified hypotension type Qualified Code(s): I95.9 - Hypotension, unspecified Condition: Serious Disposition: [facility] Referrals: Moshe BRO MD [Primary Care Provider] - Follow up as needed
[2018-05-22] MEDS ORDERED: NORMAL SALINE 500 ML IV ONE (00:18)
--- NOTE | 2018-05-22 00:19 | RADIOLOGY REPORT (SQ) ---
PROCEDURE: XR CHEST 1 VIEW HISTORY: chest pain COMPARISON: 05/18/2018 TECHNIQUE: Single projection of the chest was done. FINDINGS: Note is again made of median sternotomy and stable position of the right-sided venous access catheter. There is small right-sided pleural effusion and mild right mid and lower lung zone infiltrate/atelectasis. There is bilateral vascular congestion and cardiomegaly . There are no pneumothoraces IMPRESSION: There is small right-sided pleural effusion and mild right mid and lower lung zone infiltrate/atelectasis. There is bilateral vascular congestion and cardiomegaly .
[2018-05-22 00:29] LABS: PARTIAL THROMBOPLASTIN TIME 46.7 SEC (23.5-35.8)
[2018-05-22 00:30] LABS: HEMATOCRIT 18.5 % (36.0-47.0); MEAN CORPUSCULAR HEMOGLOBIN 33.5 pg (27.0-33.4); MEAN CORPUSCULAR HGB CONC 32.2 g/dL (32.0-36.0); PLATELET COUNT 311 10^3/uL (150-450); RED BLOOD COUNT 1.78 10^6/uL (3.72-5.28); RED CELL DISTRIBUTION WIDTH 18.6 % (11.5-14.0)
[2018-05-22 00:34] LABS: ALANINE AMINOTRANSFERASE 13 U/L (9-52); ALBUMIN 3.7 g/dL (3.5-5.0); ALKALINE PHOSPHATASE 127 U/L (38-126); ANION GAP 14 (5-19); ASPARTATE AMINO TRANSFERASE 30 U/L (14-36); BILIRUBIN,DIRECT 0.5 mg/dL (0.0-0.4); BILIRUBIN,TOTAL 0.6 mg/dL (0.2-1.3); BLOOD UREA NITROGEN 37 mg/dL (7-20); CALCIUM 8.1 mg/dL (8.4-10.2); CARBON DIOXIDE 29 mmol/L (22-30); CHLORIDE 96 mmol/L (98-107); GLUCOSE 97 mg/dL (75-110); LIPASE 92.2 U/L (23-300); POTASSIUM 4.2 mmol/L (3.6-5.0); SODIUM 139.1 mmol/L (137-145); TOTAL PROTEIN 7.3 g/dL (6.3-8.2)
[2018-05-22 00:37] LABS: MEAN CORPUSCULAR VOLUME 104 fl (80-97)
[2018-05-22 00:39] LABS: WHITE BLOOD COUNT 10.4 10^3/uL (4.0-10.5)
[2018-05-22 00:50] LABS: INTERNATIONAL RATION (INR) 4.96; PROTHROMBIN TIME 48.4 SEC (11.4-15.4)
[2018-05-22 00:59] LABS: ABSOLUTE LYMPHOCYTES# (MANUAL) 0.5 10^3/uL (0.5-4.7); ABSOLUTE MONOCYTES # (MANUAL) 0.4 10^3/uL (0.1-1.4); ABSOLUTE NEUTROPHILS# (MANUAL) 9.5 10^3/uL (1.7-8.2); BAND NEUTROPHILS % (MANUAL) 5 % (3-5); BASOPHILS % (MANUAL) 0 % (0-2); EOSINOPHILS % (MANUAL) 0 % (0-6); LYMPHOCYTES % (MANUAL) 5 % (13-45); MONOCYTES % (MANUAL) 4 % (3-13); SEGMENTED NEUTROPHILS % (MAN) 86 % (42-78); TOTAL CELLS COUNTED 100
[2018-05-22 01:02] LABS: HYPOCHROMASIA 2+; POLYCHROMASIA SLIGHT
[2018-05-22 01:03] LABS: ACANTHOCYTES 1+; ANISOCYTOSIS 2+; BURR CELLS SLIGHT; PLATELET COMMENT ADEQUATE; POIKILOCYTOSIS 1+
[2018-05-22 01:30] LABS: TROPONIN I 0.045 ng/mL
[2018-05-22] MEDS ORDERED: NORMAL SALINE 250 ML IV PRN (01:31)
--- NOTE | 2018-05-22 01:38 | RADIOLOGY REPORT (SQ) ---
EXAM DESCRIPTION: CT ABDOMEN PELVIS WITHOUT IV CONTRAST COMPLETED DATE/TME: 05/22/2018 00:22 CLINICAL HISTORY: 78 years, Female, abdominal pain COMPARISON: 01/23/2017 TECHNIQUE: Axial CT images of the abdomen and pelvis were obtained without contrast. 563 Images stored on PACS. All CT scanners at this facility use dose modulation, iterative reconstruction, and/or weight based dosing when appropriate to reduce radiation dose to as low as reasonably achievable (ALARA). [facility]: Dose Right [facility]: CareDose [facility]: Dose Right [facility]: Teradose 4D [facility]: [employer] LIMITATIONS: None. FINDINGS: There are bilateral pleural effusions, right larger than left. There are atherosclerotic calcifications of the coronary arteries. There are dense calcifications of the mitral valve. Cholelithiasis is noted. The liver, pancreas, and spleen appear unremarkable. There is nodular thickening of the bilateral adrenal glands, similar to the prior. There is no evidence of nephrolithiasis or hydronephrosis bilaterally. There is a mild amount of perihepatic fluid. There is no free air. There is no lymphadenopathy. The stomach and small bowel are unremarkable. The appendix is not uniquely identified. Diverticulosis is noted without evidence of diverticulitis. Hysterectomy. The urinary bladder is incompletely distended. There are no lytic or blastic bone lesions. IMPRESSION: Bilateral pleural effusions, right larger than left. Coronary artery disease. Cholelithiasis. Diverticulosis without evidence of diverticulitis TECHNICAL DOCUMENTATION: Quality ID # [id number]: Final reports with documentation of one or more dose reduction techniques (e.g., Automated exposure control, adjustment of the mA and/or kV according to patient size, use of iterative reconstruction technique) 2010 [employer]- All Rights Reserved
[2018-05-22] MEDS ORDERED: PANTOPRAZOLE SODIUM 40 MG VIAL IV PRN (01:43)
[2018-05-22] MEDS ORDERED: PANTOPRAZOLE SODIUM 40 MG VIAL IV ONE (01:43)
[2018-05-22 04:27] VITALS: BP 91/44
--- NOTE | 2018-05-22 07:49 | EKG REPORT ---
SEVERITY:- ABNORMAL ECG - SINUS TACHYCARDIA VS AFIB/FLUTTER, REC REPEAT EKG RIGHT BUNDLE BRANCH BLOCK LEFT VENTRICULAR HYPERTROPHY INFERIOR INFARCT, old vs [facility] ANTERIOR INFARCT ? [facility] RELATED : Confirmed on behalf of: Anusha Martines 22-May-2018 07:48:46
== END 2018-05-22 04:35 | disposition short-term general hospital (02) ==
LOC: ER 23:44
DX: J90 Pleural effusion, not elsewhere classified (principal); I48.2 Chronic atrial fibrillation; R07.9 Chest pain, unspecified; I95.9 Hypotension, unspecified; I50.40 Unspecified combined systolic (congestive) and diastolic (congestive) heart failure; I13.2 Hypertensive heart and chronic kidney disease with heart failure and with stage 5 chronic kidney disease, or end stage renal disease; N18.6 End stage renal disease; Z88.0 Allergy status to penicillin; Z88.1 Allergy status to other antibiotic agents; Z99.2 Dependence on renal dialysis; M19.90 Unspecified osteoarthritis, unspecified site; F03.90 Unspecified dementia, unspecified severity, without behavioral disturbance, psychotic disturbance, mood disturbance, and anxiety; Z95.2 Presence of prosthetic heart valve; Z90.710 Acquired absence of both cervix and uterus; K92.2 Gastrointestinal hemorrhage, unspecified
CPT/HCPCS: 93005; 99285; 96360; 96361; 86900; 86901; 36415; 36430; 86850; 83690; 85025; 85610; 85730; 82272; 80053; 84484; 86920; 83880; 71045; 74176; 93010; P9016; A9270; J7040; C1751